=== PATIENT | male | born 1960 | race Two or more races ===

== ENCOUNTER 2016-07-19 06:52 | Day surgery (SDC) | payer BC, MEDICARE, OTHER ==
[2016-07-19 08:11] VITALS: BMI 33.5
[2016-07-19] MEDS ORDERED: LIDOCAINE HCL/PF 1% SDV 5ML VIAL ONE (08:36)
[2016-07-19] MEDS ORDERED: PROPOFOL 20 ML ONE ×5 (08:36→10:07)
[2016-07-19 09:27] LABS: MEAN CELL VOLUME 88.3 fl (80-96); MEAN PLT VOLUME 7.4 fl (7.5-11.1); PLATELET COUNT 69 K/MM3 (134-434); RDW 17.9 % (11.9-15.9)
[2016-07-19 09:39] LABS: INR 1.17 (0.82-1.09); PROTHROMBIN TIME (PATIENT) 12.9 SEC (9.98-11.88)
[2016-07-19] MEDS ORDERED: ceFAZolin SODIUM 1 GM VIAL ONE (10:03)
[2016-07-19 11:03] VITALS: TEMP 98
[2016-07-19 12:02] VITALS: BP 145/70; PULSE 55
== END 2016-07-19 11:45 | disposition home or self-care (01) ==
LOC: MERGE 06:52 → JASU-ENDO 06:52
PROVIDERS: ATTEND Internal Medicine Gastroenterology
PROC: 0DJ08ZZ Inspection of Upper Intestinal Tract, Via Natural or Artificial Opening Endoscopic (ICD-10-PCS; principal; 2016-07-19 08:30)
DX: I85.00 Esophageal varices without bleeding (principal); K76.6 Portal hypertension; I85.10 Secondary esophageal varices without bleeding; K31.89 Other diseases of stomach and duodenum; K26.9 Duodenal ulcer, unspecified as acute or chronic, without hemorrhage or perforation; K25.9 Gastric ulcer, unspecified as acute or chronic, without hemorrhage or perforation
CPT/HCPCS: 36415; 85027; 85610

== ENCOUNTER 2016-08-09 07:33 | Day surgery (SDC) | payer MEDICARE, OTHER ==
[2016-08-09] MEDS ORDERED: PROPOFOL 40 ML ONE (07:54)
[2016-08-09 09:32] VITALS: BMI 35.3
[2016-08-09] MEDS ORDERED: ceFAZolin SODIUM 1 GM VIAL ONE (09:58)
[2016-08-09 10:27] VITALS: TEMP 98.6
[2016-08-09 11:17] VITALS: BP 128/67; PULSE 50
== END 2016-08-09 11:29 | disposition home or self-care (01) ==
LOC: JASU-ENDO 07:33
PROVIDERS: ATTEND Internal Medicine Gastroenterology
PROC: 06L24CZ Occlusion of Gastric Vein with Extraluminal Device, Percutaneous Endoscopic Approach (ICD-10-PCS; 2016-08-09)
PROC: 06L34CZ Occlusion of Esophageal Vein with Extraluminal Device, Percutaneous Endoscopic Approach (ICD-10-PCS; principal; 2016-08-09 09:30)
DX: I85.00 Esophageal varices without bleeding (principal); K74.60 Unspecified cirrhosis of liver; K76.6 Portal hypertension; K31.89 Other diseases of stomach and duodenum; K22.10 Ulcer of esophagus without bleeding

== ENCOUNTER 2016-10-26 11:12 | Inpatient (IN) | payer MEDICARE, OTHER ==
[2016-10-26 11:20] VITALS: BMI 37.3
--- NOTE | 2016-10-26 11:43 | PDOC ---
History of Present Illness - General History Source: Patient, Family, Spouse Exam Limitations: No Limitations - History of Present Illness Initial Comments: 10/26/16 11:56 The patient is a 56 year-old man accompanied by his spouse, with a significant past medical history of anemia, liver cell carcinoma, hepatic encephalopathy ( patient is on a liver transplant list), hypertension, hypercholesterolemia, cerebrovascular accident, insulin-dependent diabetes mellitus, gastritis, esophageal varices who presents to the emergency department for altered mental status. As per patient's the patient is typically active and ambulatory with a cane. She noted last night, that the patient appeared weak, did not walk , felt sleepy, had a continuous dry cough and had a slurred speech. Patient this morning had the same symptoms, thus EMS was activated. Allergies: Iodinated Contrast Media (Oral and IV) Past Surgical History: Cholecystectomy. Cardiac stent placement. Left 4th digit amputation. Social History: Never smoked. No EtOH and recreational drug use. Primary Care Physician: Dr. Roxanne Duran [phone] Drywall Metal Stud Worker: Dr. Jennifer Carlson [phone] Director Oracle Database: DR. Jose De Jesus Villanueva [phone] Transplant Sewing Machinist: Dr. Whitley Rivera [address] [place] [address] [place], [place], [place] <Marquita Carver - Last Filed: 10/26/16 16:00> <Natacha Leon - Last Filed: 10/26/16 16:03> - General Chief Complaint: CVA/TIA Stated Complaint: CVA Time Seen by Provider: 10/26/16 11:24 Past History <Marquita Carver - Last Filed: 10/26/16 16:00> - Past Medical History Anemia: Yes Asthma: No Cancer: Yes (LIVER) Cardiac Disorders: Yes CVA: Yes COPD: No CHF: No Dementia: No Diabetes: Yes (IDDM) GI Disorders: Yes (ESOPHAGEAL VARICES,GASTRITIS) Disorders: No HTN: Yes (PORTAL) Hypercholesterolemia: Yes Liver Disease: Yes (LIVER CELL CARCINOMA;CIRRHOSIS OF LIVER) Seizures: No Thyroid Disease: No - Surgical History Abdominal Surgery: No Appendectomy: No Cardiac Surgery: Yes (CARDIAC STENTS) Cholecystectomy: Yes Lung Surgery: No Neurologic Surgery: No Orthopedic Surgery: No - Psycho/Social/Smoking Cessation Hx Anxiety: No Suicidal Ideation: No Smoking Status: No Smoking History: Never smoked Have you smoked in the past 12 months: No Number of Cigarettes Smoked Daily: 0 Hx Alcohol Use: No Drug/Substance Use Hx: No Substance Use Type: None Hx Substance Use Treatment: No <Natacha Leon - Last Filed: 10/26/16 16:03> - Past Medical History Allergies/Adverse Reactions: Allergies Allergy/AdvReac Type Severity Reaction Status Date / Time Iodinated Contrast Media - Allergy Verified 04/30/16 15:39 Oral and [Iodinated Contrast Media - IV Dye] Home Medications: Ambulatory Orders Aspirin [ASA -] 81 mg PO DAILY 07/15/16 Atorvastatin Ca [Lipitor] 10 mg PO HS 07/15/16 Furosemide [Lasix] 40 mg PO DAILY 07/15/16 Insulin Detemir [Levemir Flextouch] 40 unit SQ DAILY 07/15/16 Multivitamins [Multivit ([facility] Formulary)] 1 tab PO DAILY 07/15/16 Nadolol 20 mg PO DAILY 07/15/16 Nateglinide [Starlix (Nf) -] 60 mg PO BID 07/15/16 Ranolazine [Ranexa] 1,000 mg PO BID 07/15/16 Spironolactone 50 mg PO DAILY 07/15/16 Insulin Lispro [Humalog Kwikpen U-200] 12 unit SQ ASDIR 07/19/16 Metformin HCl 500 mg PO BID 08/09/16 Pantoprazole Sodium [Protonix] 40 mg PO DAILY 10/26/16 Rivaroxaban [Xarelto -] 10 mg PO DAILY 10/26/16 Review of Systems - Review of Systems Able to Perform ROS?: Yes Comments:: 10/26/16 11:56 GENERAL/CONSTITUTIONAL: No fever or chills. No weakness. HEAD, EYES, EARS, NOSE AND THROAT: No change in vision. No ear pain or discharge. No sore throat. CARDIOVASCULAR: No chest pain or shortness of breath. RESPIRATORY: Yes: Cough. No wheezing, or hemoptysis. GASTROINTESTINAL: No nausea, vomiting, diarrhea or constipation. GENITOURINARY: No dysuria, frequency, or change in urination. MUSCULOSKELETAL: No joint or muscle swelling or pain. No neck or back pain. SKIN: No rash NEUROLOGIC: Yes: Altered mental status. Change in strength/sensation. Slurred speech. No vertigo, loss of consciousness. ENDOCRINE: No increased thirst. No abnormal weight change. HEMATOLOGIC/LYMPHATIC: Yes: History of anemia. No easy bleeding, or history of blood clots. ALLERGIC/IMMUNOLOGIC: No hives or skin allergy. <Marquita Carver - Last Filed: 10/26/16 16:00> *Physical Exam - Vital Signs Last Vital Signs Temp Pulse Resp BP Pulse Ox 99.2 F 67 18 133/70 99 10/26/16 11:19 10/26/16 11:19 10/26/16 11:19 10/26/16 11:19 10/26/16 11:19 <Marquita Carver - Last Filed: 10/26/16 16:00> - Vital Signs Last Vital Signs Temp Pulse Resp BP Pulse Ox 99.2 F 67 18 133/70 99 10/26/16 11:19 10/26/16 11:19 10/26/16 11:19 10/26/16 11:19 10/26/16 11:19 - Physical Exam Comments: GENERAL: Awake, alert, and oriented to person and place, in no acute distress. Somewhat confused. HEAD: No signs of trauma EYES: PERRLA, EOMI, sclera anicteric, conjunctiva clear ENT: Auricles normal inspection, hearing grossly normal, nares patent, oropharynx clear without exudates. Dry mucosa NECK: Normal ROM, supple, no lymphadenopathy, JVD, or masses LUNGS: Breath sounds equal, clear to auscultation bilaterally. No wheezes, and no crackles HEART: Regular rate and rhythm, normal S1 and S2, no murmurs, rubs or gallops ABDOMEN: Soft, nontender, normoactive bowel sounds. No guarding, no rebound. No masses EXTREMITIES: Normal range of motion, no edema. No clubbing or cyanosis. No cords, erythema, or tenderness NEUROLOGICAL: Cranial nerves II through XII grossly intact. Slightly slurred speech. Gait not tested due to confusion. Motor and sensation intact. SKIN: Warm, Dry, normal turgor, no rashes or lesions noted. <Natacha Leon - Last Filed: 10/26/16 16:03> ED Treatment Course - LABORATORY CBC & Chemistry Diagram: 10/26/16 11:49 10/26/16 11:49 - RADIOLOGY Radiograph Interpretation: 10/26/16 13:01 EXAM: CT/HEAD CT WITHOUT CONTRAST Interpreted by Dr. Beto Houser IMPRESSION: Since 01/02/2015, there remains mild volume loss. The ventricles and basal cisterns appear unremarkable. Questionable minimal periventricular chronic microvascular ischemic changes. No mass lesion, gross acute infarct or intracranial hemorrhage is identified. There is no shift of the midline structures. Previously described left pontine old lacunar infarcts are not grossly appreciated on this exam. The calvarium is intact. Visualized paranasal sinuses are well aerated. Mild deviation of the nasal septum to the right with a prominent right sided bony spur is present. Calcification of the cavernous carotid arteries are present. The mastoid air cells are well aerated <Marquita Carver - Last Filed: 10/26/16 16:00> - LABORATORY CBC & Chemistry Diagram: 10/26/16 11:49 10/26/16 11:49 <Natacha Leon - Last Filed: 10/26/16 16:03> Medical Decision Making - Medical Decision Making 10/26/16 13:[address] Jg Flores. 10/26/16 13:[address] Jg Flores. Case was discussed. <Marquita Carver - Last Filed: 10/26/16 16:00> - Medical Decision Making Pt and family did not initially state that he had history of liver disease, so history was updated as this became apparent and ammonia level was added. Found to be elevated to 112. Pt given lactulose. Results discussed with family. Patient endorsed to Dr. Flores for admission. <Natacha Leon - Last Filed: 10/26/16 16:03> *DC/Admit/Observation/Transfer - Attestations Scribe Attestion: 10/26/16 11:56 Documentation prepared by Marquita Carver, acting as biomedical engineering technician for Natacha Leon MD. <Marquita Carver - Last Filed: 10/26/16 16:00> - Discharge Dispostion Admit: Yes <Natacha Leon - Last Filed: 10/26/16 16:03> Diagnosis at time of Disposition: Hepatic encephalopathy - Discharge Dispostion Condition at time of disposition: Guarded - Referrals
[2016-10-26 11:58] LABS: BASOPHIL 0.6 % (0-2.0); EOSINOPHIL 0.9 % (0-4.5); MCH 30.3 pg (25.7-33.7); MCHC 33.7 g/dl (32.0-35.9); MEAN CELL VOLUME 89.9 fl (80-96); NEUTROPHILS 73.4 % (42.8-82.8); PLATELET COUNT 76 K/MM3 (134-434); RDW 16.9 % (11.9-15.9); WHITE BLOOD COUNT 5.2 K/mm3 (4.0-10.0)
[2016-10-26 12:22] LABS: INR 1.45 (0.82-1.09); PROTHROMBIN TIME (PATIENT) 16.1 SEC (9.98-11.88)
[2016-10-26 12:23] LABS: BILIRUBIN,TOTAL 1.2 mg/dL (0.2-1.0); CALCIUM 9.4 mg/dL (8.5-10.1); COCKROFT - GAULT 103.31; CREATININE 1.3 mg/dL (0.7-1.3); TOT PROT 7.3 g/dl (6.4-8.2)
[2016-10-26 12:26] LABS: TROPONIN I 0.06 ng/ml (0.00-0.05)
[2016-10-26] MEDS ORDERED: INSULIN REGULAR HUMAN 100 UNITS/ML *VIAL SQ ONE (12:32)
[2016-10-26] MEDS ORDERED: SODIUM CHLORIDE 250 ML IV STA (12:53)
[2016-10-26] MEDS ORDERED: LACTULOSE 20 GM/30 ML UDC (FOR ORAL USE ONLY) PO ONE (13:28)
[2016-10-26] MEDS ORDERED: LACTULOSE 20 GM/30 ML UDC (FOR ORAL USE ONLY) ONE (13:33)
--- NOTE | 2016-10-26 15:22 | EKG ---
Test Reason : Blood Pressure : / mmHG Vent. Rate : 054 BPM Atrial Rate : 054 BPM P-R Int : 178 ms QRS Dur : 102 ms QT Int : 482 ms P-R-T Axes : 015 -34 -22 degrees QTc Int : 457 ms SINUS BRADYCARDIA LEFT AXIS DEVIATION MINIMAL VOLTAGE CRITERIA FOR LVH, MAY BE NORMAL VARIANT ABNORMAL ECG WHEN COMPARED WITH ECG OF 05-APR-2016 16:10, NO SIGNIFICANT CHANGE WAS FOUND Confirmed by REGGIE SÁNCHEZ, BRISA ([id number]) on 10/26/2016 3:21:55 PM Referred By: Confirmed By:BRISA PAREDES MD
[2016-10-26] MEDS ORDERED: LACTULOSE 20 GM/30 ML UDC (FOR ORAL USE ONLY) PO PRN (15:50)
[2016-10-26] MEDS: INSULIN SLIDING SCALE (NOVOLOG) 1 VIAL SQ SCH ×2 (16:50→22:53)
[2016-10-26 17:11] LABS: URINE APPEARANCE CLEAR; URINE BILIRUBIN NEGATIVE (NEGATIVE); URINE BLOOD NEGATIVE (NEGATIVE); URINE COLOR YELLOW; URINE GLUCOSE (UA) 3+ (NEGATIVE); URINE KETONE NEGATIVE (NEGATIVE); URINE LEUK ESTERASE NEGATIVE (NEGATIVE); URINE NITRITE NEGATIVE (NEGATIVE); URINE PROTEIN NEGATIVE (NEGATIVE); URINE UROBILINOGEN NEGATIVE E.U./dl (0.2-1.0)
--- NOTE | 2016-10-26 19:43 | PN ---
Progress Note (short form) - Note Progress Note: ID Consult dictated
[2016-10-26 21:03] LABS: BASOPHIL 0.3 % (0-2.0); EOSINOPHIL 1.1 % (0-4.5); MCH 29.7 pg (25.7-33.7); MCHC 32.6 g/dl (32.0-35.9); MEAN PLT VOLUME 8.2 fl (7.5-11.1); NEUTROPHILS 68.6 % (42.8-82.8); PLATELET COUNT 77 K/MM3 (134-434); RDW 17.1 % (11.9-15.9); WHITE BLOOD COUNT 5.2 K/mm3 (4.0-10.0)
[2016-10-26] MEDS ORDERED: INSULIN (NOVOLOG) ASPART 100 UNITS/ML 10ML VIAL ONE (22:49)
[2016-10-26] MEDS ORDERED: RANOLAZINE E.R. 500 MG TABLET (FP) ONE (22:49)
[2016-10-26] MEDS: ATORVASTATIN CA 10 MG TABLET (FP) PO SCH (22:54)
[2016-10-26] MEDS: RANOLAZINE E.R. 1,000 MG TABLET (FP) PO SCH (22:54)
[2016-10-26] MEDS: LACTULOSE 20 GM/30 ML UDC (FOR ORAL USE ONLY) PO PRN (22:56)
--- NOTE | 2016-10-27 00:07 | CONSULT ---
Consult Consult Specialty:: endocrine Referred by:: dr.annabi garcia Reason for Consultation:: diabetes mellitus - History of Present Illness Chief Complaint: high blood sugars History of Present Illness: 56 year-old man accompanied by his spouse, with a significant past medical history of anemia, liver cell carcinoma, hepatic encephalopathy (patient is on a liver transplant list), hypertension, hypercholesterolemia, cerebrovascular accident, insulin-dependent diabetes mellitus, gastritis, esophageal varices who presents to the emergency department for altered mental status. 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: Yes: Peripheral Neuropathy Cardio/Vascular: Yes: CAD, HTN, Hyperlipdemia Gastrointestinal: Yes: Esophageal Varices, GI Bleed, Gastritis, Hemorrhoids, Ascites, Other Hepatobiliary: Yes: Cirrhosis (h/o esophageal varices s/p banding, related to HERNANDEZ), Cholelithiasis (s/p lap choly), Other (PORTAL VEIN PARTIAL THROMBOSIS, HCC treated with transhepatic heat ablations at [facility]) Renal/: Yes: Renal Inusuff Endocrine: Yes: Diabetes Mellitus - Past Surgical History Past Surgical History: Yes: Hernia Repair, Colonoscopy, Upper Endoscopy, Amputation, Cholecystectomy - Alcohol/Substance Use Hx Alcohol Use: No History of Substance Use: reports: None - Smoking History Smoking history: Never smoked Have you smoked in the past 12 months: No Aproximately how many cigarettes per day: 0 - Social History Usual Living Arrangement: With Spouse ADL: Independent 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 [employer] History of Recent Travel: No Home Medications - Allergies Allergies/Adverse Reactions: Allergies Allergy/AdvReac Type Severity Reaction Status Date / Time Iodinated Contrast Media - Allergy Verified 04/30/16 15:39 Oral and [Iodinated Contrast Media - IV Dye] - Home Medications Home Medications: Ambulatory Orders Aspirin [ASA -] 81 mg PO DAILY 07/15/16 Atorvastatin Ca [Lipitor] 10 mg PO HS 07/15/16 Furosemide [Lasix] 40 mg PO DAILY 07/15/16 Insulin Detemir [Levemir Flextouch] 40 unit SQ DAILY 07/15/16 Multivitamins [Multivit ([facility] Formulary)] 1 tab PO DAILY 07/15/16 Nadolol 20 mg PO DAILY 07/15/16 Nateglinide [Starlix (Nf) -] 60 mg PO BID 07/15/16 Ranolazine [Ranexa] 1,000 mg PO BID 07/15/16 Spironolactone 50 mg PO DAILY 07/15/16 Insulin Lispro [Humalog Kwikpen U-200] 12 unit SQ ASDIR 07/19/16 Metformin HCl 500 mg PO BID 08/09/16 Pantoprazole Sodium [Protonix] 40 mg PO DAILY 10/26/16 Rivaroxaban [Xarelto -] 10 mg PO DAILY 10/26/16 Family Disease History - Family Disease History Family Disease History: Diabetes: Brother (alcoholic cirrhosis), Sister, CA: Mother (breast Ca), Other: Father ( from alcohol related complications) Review of Systems - Review of Systems Constitutional: reports: Lethargy, Weakness Eyes: reports: No Symptoms HENT: reports: No Symptoms Neck: reports: No Symptoms Cardiovascular: reports: Shortness of Breath Respiratory: reports: Exercise Intolerance, SOB, SOB on Exertion Gastrointestinal: reports: Bloating, Constipation, Nausea Genitourinary: reports: No Symptoms Breasts: reports: No Symptoms Reported Musculoskeletal: reports: Muscle Pain, Muscle Cramps, Muscle Weakness Integumentary: reports: No Symptoms Neurological: reports: Numbness, Unsteady Gait, Weakness Endocrine: reports: Unexplained Weight Gain Hematology/Lymphatic: reports: No Symptoms Physical Exam Vital Signs: Vital Signs Temperature 97.9 F 10/26/16 22:00 Pulse Rate 54 L 10/26/16 22:00 Respiratory Rate 18 10/26/16 22:00 Blood Pressure 125/62 10/26/16 22:00 O2 Sat by Pulse Oximetry (%) 99 10/26/16 22:00 Constitutional: Yes: Anxious Eyes: Yes: EOM Intact HENT: Yes: Normocephalic Neck: Yes: Trachea Midline Cardiovascular: Yes: Regular Rate and Rhythm Respiratory: Yes: CTA Bilaterally Gastrointestinal: Yes: Normal Bowel Sounds, Abdomen, Obese, Ascites, Hepatomegaly ...Rectal Exam: Yes: Deferred Renal/: Yes: WNL Breast(s): Yes: WNL Edema: No Integumentary: Yes: WNL Neurological: Yes: Alert, Oriented Labs: CBC, BMP 10/26/16 20:55 Problem List - Problems (1) Hepatic encephalopathy Code(s): K72.90 - HEPATIC FAILURE, UNSPECIFIED WITHOUT COMA (2) Abdominal distension Code(s): R14.0 - ABDOMINAL DISTENSION (GASEOUS) (3) Ascites Code(s): R18.8 - OTHER ASCITES Qualifiers: Ascites type: other type Qualified Code(s): R18.8 - Other ascites (4) CVA (cerebral infarction) Code(s): I63.9 - CEREBRAL INFARCTION, UNSPECIFIED (5) Type 2 diabetes mellitus with diabetic neuropathy, unspecified Code(s): E11.40 - TYPE 2 DIABETES MELLITUS WITH DIABETIC NEUROPATHY, UNSP Assessment/Plan Current Active Problems Hepatic encephalopathy (Acute) hepatic carcinoma hypertension ashd tia /cva diabetes mellitus uncontrolled hyperglycemia hyperlipidemia unstable angina vs mi Abnormal Lab Results 10/26/16 10/26/16 10/26/16 11:49 11:49 11:49 RBC 3.18 L Hgb 9.6 L D Hct 28.6 L RDW 16.9 H Plt Count 76 L INR 1.45 H Random Glucose 314 H* Lactic Acid Total Bilirubin 1.2 H Ammonia Troponin I 0.06 H D Albumin 3.0 L Urine Glucose (UA) 10/26/16 10/26/16 10/26/16 11:49 12:37 16:30 RBC Hgb Hct RDW Plt Count INR Random Glucose Lactic Acid 2.7 H* Total Bilirubin Ammonia 114.92 H Troponin I Albumin Urine Glucose (UA) 3+ H 10/26/16 10/26/16 20:55 21:30 RBC 3.00 L Hgb 8.9 L Hct 27.3 L RDW 17.1 H Plt Count 77 L INR Random Glucose Lactic Acid Total Bilirubin Ammonia Troponin I 0.06 H Albumin Urine Glucose (UA) Laboratory Results - last 24 hr 10/26/16 10/26/16 10/26/16 11:49 11:49 11:49 WBC 5.2 RBC 3.18 L Hgb 9.6 L D Hct 28.6 L MCV 89.9 MCHC 33.7 RDW 16.9 H Plt Count 76 L MPV 8.0 Neutrophils % 73.4 Lymphocytes % 16.2 Monocytes % 8.9 Eosinophils % 0.9 Basophils % 0.6 INR 1.45 H Sodium 136 Potassium 4.7 Chloride 102 Carbon Dioxide 25 Anion Gap 9 BUN 16 Creatinine 1.3 Creat Clearance w eGFR 56.70 POC Glucometer Random Glucose 314 H* Lactic Acid Calcium 9.4 Total Bilirubin 1.2 H AST 28 D ALT 32 D Alkaline Phosphatase 114 Ammonia Creatine Kinase 91 Troponin I 0.06 H D Total Protein 7.3 Albumin 3.0 L Urine Color Urine Appearance Urine pH Ur Specific [place] Urine Protein Urine Glucose (UA) Urine Ketones Urine Blood Urine Nitrite Urine Bilirubin Urine Urobilinogen Ur Leukocyte Esterase 10/26/16 10/26/16 10/26/16 11:49 12:37 16:11 WBC RBC Hgb Hct MCV MCHC RDW Plt Count MPV Neutrophils % Lymphocytes % Monocytes % Eosinophils % Basophils % INR Sodium Potassium Chloride Carbon Dioxide Anion Gap BUN Creatinine Creat Clearance w eGFR POC Glucometer [phone] Random Glucose Lactic Acid 2.7 H* Calcium Total Bilirubin AST ALT Alkaline Phosphatase Ammonia 114.92 H Creatine Kinase Troponin I Total Protein Albumin Urine Color Urine Appearance Urine pH Ur Specific [place] Urine Protein Urine Glucose (UA) Urine Ketones Urine Blood Urine Nitrite Urine Bilirubin Urine Urobilinogen Ur Leukocyte Esterase 10/26/16 10/26/16 10/26/16 16:15 16:30 20:55 WBC 5.2 RBC 3.00 L Hgb 8.9 L Hct 27.3 L MCV 91.0 MCHC 32.6 RDW 17.1 H Plt Count 77 L MPV 8.2 Neutrophils % 68.6 Lymphocytes % 20.4 D Monocytes % 9.6 Eosinophils % 1.1 Basophils % 0.3 INR Sodium Potassium Chloride Carbon Dioxide Anion Gap BUN Creatinine Creat Clearance w eGFR POC Glucometer Random Glucose Lactic Acid 1.6 Calcium Total Bilirubin AST ALT Alkaline Phosphatase Ammonia Creatine Kinase Troponin I Total Protein Albumin Urine Color Yellow Urine Appearance Clear Urine pH 6.0 Ur Specific [place] 1.010 Urine Protein Negative Urine Glucose (UA) 3+ H Urine Ketones Negative Urine Blood Negative Urine Nitrite Negative Urine Bilirubin Negative Urine Urobilinogen Negative Ur Leukocyte Esterase Negative 10/26/16 10/26/16 21:30 22:52 WBC RBC Hgb Hct MCV MCHC RDW Plt Count MPV Neutrophils % Lymphocytes % Monocytes % Eosinophils % Basophils % INR Sodium Potassium Chloride Carbon Dioxide Anion Gap BUN Creatinine Creat Clearance w eGFR POC Glucometer 335 Random Glucose Lactic Acid Calcium Total Bilirubin AST ALT Alkaline Phosphatase Ammonia Creatine Kinase Troponin I 0.06 H Total Protein Albumin Urine Color Urine Appearance Urine pH Ur Specific [place] Urine Protein Urine Glucose (UA) Urine Ketones Urine Blood Urine Nitrite Urine Bilirubin Urine Urobilinogen Ur Leukocyte Esterase plan: cardiac telemetry cardiology consult bgm novolog sliding scale levemir 40 units am levemir 15 units hs ck hba1c cpk troponin serial enzymes Current Medications Generic Name Dose Route Start Last Admin Trade Name Freq PRN Reason Stop Dose Admin Aspirin 81 mg 10/27/16 10:00 Asa - PO DAILY [facility] Atorvastatin Calcium 10 mg 10/26/16 22:00 10/26/16 22:54 Lipitor - PO 10 mg HS J CARLOS Administration Furosemide 40 mg 10/27/16 10:00 Lasix - PO DAILY [facility] Insulin Aspart 1 vial 10/26/16 16:30 10/26/16 22:53 Novolog Vial Sliding Scale - SQ 7 unit ACHS J CARLOS Administration Protocol Insulin Detemir 40 units 10/27/16 10:00 Levemir Vial SQ DAILY [facility] Insulin Detemir 15 units 10/27/16 22:00 Levemir Vial SQ HS [facility] Lactulose 20 gm 10/26/16 20:04 10/26/16 22:56 Cephulac (Oral Use) PO 20 gm Q12H PRN Administration CONSTIPATION Nadolol 20 mg 10/27/16 10:00 Corgard - PO DAILY [facility] Pantoprazole Sodium 40 mg 10/27/16 10:00 Protonix - PO DAILY [facility] Ranolazine 1,000 mg 10/26/16 22:00 10/26/16 22:54 Ranexa - PO 1,000 mg BID J CARLOS Administration Rivaroxaban 10 mg 10/27/16 10:00 Xarelto - PO DAILY [facility] Spironolactone 50 mg 10/27/16 10:00 Aldactone - PO DAILY [facility]
--- NOTE | 2016-10-27 00:34 | CONS ---
DATE OF CONSULTATION: DATE OF DICTATION: 10/26/2016 INFECTIOUS DISEASE CONSULTATION HISTORY OF PRESENT ILLNESS: A 56-year-old male with history of chronic liver disease, being evaluated for possible sepsis. He was admitted to the hospital with altered mental status. He was found to have a serum ammonia level of over 100. He was treated with lactulose with improvement in his mental status. At the present time he is awake and alert. He offers no complaints. He denies any recent febrile illness. No complaints of chest pain, shortness of breath, cough, sputum production. No abdominal pain, vomiting, diarrhea, dysuria, or hematuria. PAST MEDICAL HISTORY: Positive for chronic liver disease, history of hepatocellular carcinoma, chronic anemia, stroke, insulin dependent diabetes mellitus, hypertension, hyperlipidemia. PAST SURGICAL HISTORY: Status post cholecystectomy and coronary artery stent. ALLERGIES: IODINE. MEDICATION: Aspirin, Protonix, lactulose, Xarelto, Coreg, Lipitor, Levemir, Lasix, Aldactone. SOCIAL HISTORY: Negative for tobacco or active alcohol use. LABORATORY DATA: White count 5.2, hematocrit 28.6, platelets 76. Urinalysis negative. BUN 16, creatinine 1.3, ammonia level 114. Chest x-ray negative. PHYSICAL EXAMINATION: General: He is awake and responsive, offers no complaints. Vital signs: Temperature 99.2, blood pressure 123/66, pulse 50 regular, respirations 18 per minute. HEENT: Sclerae anicteric. Neck: Supple. Cardiovascular: Heart sounds S1, S2. Respiratory: Lungs clear. Abdomen: Obese. Soft. Nontender. Extremities: Negative for edema. IMPRESSION: 1. Hepatic encephalopathy. 2. Low-grade fever. 3. Chronic liver disease. Obtain cultures. Observe off antibiotic therapy. No clear focus for infection precipitating hepatic encephalopathy. Will follow. Thank you for the kind referral. VALERI HILL M.D. [id number]
[2016-10-27] MEDS: INSULIN SLIDING SCALE (NOVOLOG) 1 VIAL SQ SCH ×4 (06:49→21:16)
[2016-10-27] MEDS ORDERED: RANOLAZINE E.R. 500 MG TABLET (FP) ONE ×2 (07:46→20:48)
[2016-10-27] MEDS: INSULIN DETEMIR 100 UNITS/ML MDV SQ SCH ×2 (07:49→21:15)
[2016-10-27 07:50] LABS: BASOPHIL 0.9 % (0-2.0); EOSINOPHIL 1.8 % (0-4.5); MCH 30.4 pg (25.7-33.7); MCHC 33.9 g/dl (32.0-35.9); MEAN CELL VOLUME 89.6 fl (80-96); MEAN PLT VOLUME 8.2 fl (7.5-11.1); NEUTROPHILS 61.7 % (42.8-82.8); PLATELET COUNT 66 K/MM3 (134-434); RDW 16.9 % (11.9-15.9); WHITE BLOOD COUNT 3.8 K/mm3 (4.0-10.0)
[2016-10-27 08:23] LABS: INR 1.28 (0.82-1.09); PROTHROMBIN TIME (PATIENT) 14.1 SEC (9.98-11.88)
[2016-10-27 08:30] LABS: ALBUMIN 2.6 g/dl (3.4-5.0); ALK PHOS 96 U/L (45-117); ANION GAP 7 (8-16); BILIRUBIN,TOTAL 0.9 mg/dL (0.2-1.0); CALCIUM 8.8 mg/dL (8.5-10.1); CO2 26 mmol/L (21-32); CREATININE 1.1 mg/dL (0.7-1.3); GLUCOSE,RANDOM 223 mg/dL (74-106); MAGNESIUM 1.7 mg/dL (1.8-2.4); SGOT/AST 33 U/L (15-37); SGPT/ALT 28 U/L (12-78); TOT PROT 6.2 g/dl (6.4-8.2)
[2016-10-27] MEDS: ASPIRIN 81 MG CHEWABLE TABLETS PO SCH (09:32)
[2016-10-27] MEDS: LACTULOSE 20 GM/30 ML UDC (FOR ORAL USE ONLY) PO PRN (09:33)
[2016-10-27] MEDS: FUROSEMIDE 40 MG TABLET (FP) PO SCH (09:33)
[2016-10-27] MEDS: SPIRONOLACTONE 25 MG TABLET (FP) PO SCH (09:33)
[2016-10-27] MEDS: RANOLAZINE E.R. 1,000 MG TABLET (FP) PO SCH ×2 (09:33→21:17)
[2016-10-27] MEDS: PANTOPRAZOLE 40 MG TABLET (FP) PO SCH (09:33)
[2016-10-27] MEDS ORDERED: PT OWN MED DRAWER 7, Y5N ONE (09:34)
[2016-10-27] MEDS ORDERED: INSULIN DETEMIR 100 UNITS/ML MDV SQ SCH (10:00)
[2016-10-27] MEDS: NADOLOL 20 MG TABLET (FP) PO SCH (12:37)
[2016-10-27] MEDS: RIVAROXABAN 10 MG TABLET PO SCH (12:37)
--- NOTE | 2016-10-27 12:44 | CON.GI ---
Consult Consult Specialty:: GASTROENTEROLOGY Reason for Consultation:: ENCEPHALOPATHY - History of Present Illness Chief Complaint: ALERTED MENTAL STATUS History of Present Illness: 56 YEAR OLD MALE WITH CIRRHOSIS(PHTN.GRADE III ESOPHAGEAL VARICES) FROM FATTY LIVER AND NOW WITH PVT AND HCC TREATED AT [facility] (SEE PRIOR CONSULT NOTES) NOW WITH ONE DAY OF LOW GRADE TEMP AND YESTERDAY WITH LETHARGY AND CONFUSION. PATIENT GIVEN LACTULOSE AND SEPSIS WORKUP IS ONGOING. PATIENT ALSO NOTED TO HAVE MILD TROPONIN ELEVATERD. HE DENIES RECTAL BLEEDING AND MELENA. HE IS ALERT AND AWAKE TODAY. JAYSON HAS ALWAYS BEEN A POOR HISTORIAN AND STATES HE HAD SOME STENTING PROCEDURE LAST WEEK IN HIS LEFT LEG AND ALSO A AMPUTATION OF HIS TOE ON THE SMAE SIDE. 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 Cardio/Vascular: Yes: CAD, HTN, Hyperlipdemia Gastrointestinal: Yes: Esophageal Varices, GI Bleed, Gastritis, Hemorrhoids, Ascites, Other Hepatobiliary: Yes: Cirrhosis (h/o esophageal varices s/p banding, related to HERNANDEZ), Cholelithiasis (s/p lap choly), Other (PORTAL VEIN PARTIAL THROMBOSIS, HCC treated with transhepatic heat ablations at [facility]) Renal/: Yes: Renal Inusuff Endocrine: Yes: Diabetes Mellitus - Past Surgical History Past Surgical History: Yes: Hernia Repair, Colonoscopy, Upper Endoscopy, Amputation, Cholecystectomy - Alcohol/Substance Use Hx Alcohol Use: No History of Substance Use: reports: None - Smoking History Smoking history: Never smoked Have you smoked in the past 12 months: No Aproximately how many cigarettes per day: 0 - Social History Usual Living Arrangement: With Spouse ADL: Independent 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 [employer] History of Recent Travel: No Home Medications - Allergies Allergies/Adverse Reactions: Allergies Allergy/AdvReac Type Severity Reaction Status Date / Time Iodinated Contrast Media - Allergy Verified 04/30/16 15:39 Oral and [Iodinated Contrast Media - IV Dye] - Home Medications Home Medications: Ambulatory Orders Aspirin [ASA -] 81 mg PO DAILY 07/15/16 Atorvastatin Ca [Lipitor] 10 mg PO HS 07/15/16 Furosemide [Lasix] 40 mg PO DAILY 07/15/16 Insulin Detemir [Levemir Flextouch] 40 unit SQ DAILY 07/15/16 Multivitamins [Multivit ([facility] Formulary)] 1 tab PO DAILY 07/15/16 Nadolol 20 mg PO DAILY 07/15/16 Nateglinide [Starlix (Nf) -] 60 mg PO BID 07/15/16 Ranolazine [Ranexa] 1,000 mg PO BID 07/15/16 Spironolactone 50 mg PO DAILY 07/15/16 Insulin Lispro [Humalog Kwikpen U-200] 12 unit SQ ASDIR 07/19/16 Metformin HCl 500 mg PO BID 08/09/16 Pantoprazole Sodium [Protonix] 40 mg PO DAILY 10/26/16 Rivaroxaban [Xarelto -] 10 mg PO DAILY 10/26/16 Family Disease History - Family Disease History Family Disease History: Diabetes: Brother (alcoholic cirrhosis), Sister, CA: Mother (breast Ca), Other: Father ( from alcohol related complications) Review of Systems - Review of Systems Constitutional: reports: Lethargy, Other (CHANGE IN MENTAL STATUS) HENT: reports: No Symptoms Neck: reports: No Symptoms Cardiovascular: reports: No Symptoms Respiratory: reports: No Symptoms Gastrointestinal: reports: No Symptoms Genitourinary: reports: No Symptoms Breasts: reports: No Symptoms Reported Musculoskeletal: reports: No Symptoms Integumentary: reports: No Symptoms Neurological: reports: No Symptoms Endocrine: reports: No Symptoms Hematology/Lymphatic: reports: No Symptoms Psychiatric: reports: No Symptoms Physical Exam-GI Vital Signs: Vital Signs Temperature 97.9 F 10/27/16 07:00 Pulse Rate 52 L 10/27/16 09:00 Respiratory Rate 18 10/27/16 09:00 Blood Pressure 114/60 10/27/16 09:00 O2 Sat by Pulse Oximetry (%) 99 10/27/16 09:00 Constitutional: Yes: No Distress, Calm, Obese Eyes: Yes: Conjunctiva Clear HENT: Yes: Normocephalic Neck: Yes: Supple Cardiovascular: Yes: Regular Rate and Rhythm Respiratory: Yes: Regular Gastrointestinal Inspection: Yes: WNL ...Auscultate: Yes: Normoactive Bowel Sounds ...Palpate: Yes: Soft Musculoskeletal: Yes: WNL Extremities: Yes: Amputation Neurological: Yes: Alert, Oriented Labs: CBC, BMP 10/27/16 06:35 10/27/16 06:35 INR, PTT INR 1.28 (0.82-1.09) H 10/27/16 06:35 Laboratory Tests 10/26/16 10/27/16 10/27/16 16:30 06:20 06:35 WBC 3.8 L RBC 2.77 L Hgb 8.4 L Hct 24.8 L MCV 89.6 MCHC 33.9 RDW 16.9 H Plt Count 66 L MPV 8.2 Neutrophils % 61.7 Lymphocytes % 25.0 D Monocytes % 10.6 H Eosinophils % 1.8 Basophils % 0.9 INR Sodium Potassium Chloride Carbon Dioxide Anion Gap BUN Creatinine Creat Clearance w eGFR Random Glucose Calcium Magnesium Total Bilirubin AST ALT Alkaline Phosphatase Ammonia Troponin I 0.06 H Total Protein Albumin Urine Color Yellow Urine Appearance Clear Urine pH 6.0 Ur Specific [place] 1.010 Urine Protein Negative Urine Glucose (UA) 3+ H Urine Ketones Negative Urine Blood Negative Urine Nitrite Negative Urine Bilirubin Negative Urine Urobilinogen Negative Ur Leukocyte Esterase Negative 10/27/16 10/27/16 10/27/16 06:35 06:35 06:35 WBC RBC Hgb Hct MCV MCHC RDW Plt Count MPV Neutrophils % Lymphocytes % Monocytes % Eosinophils % Basophils % INR 1.28 H Sodium 139 Potassium 4.2 Chloride 106 Carbon Dioxide 26 Anion Gap 7 L BUN 14 Creatinine 1.1 Creat Clearance w eGFR > 60 Random Glucose 223 H D Calcium 8.8 Magnesium 1.7 L Total Bilirubin 0.9 D AST 33 ALT 28 Alkaline Phosphatase 96 Ammonia 73.2 H Troponin I Total Protein 6.2 L Albumin 2.6 L Urine Color Urine Appearance Urine pH Ur Specific [place] Urine Protein Urine Glucose (UA) Urine Ketones Urine Blood Urine Nitrite Urine Bilirubin Urine Urobilinogen Ur Leukocyte Esterase Problem List - Problems (1) Hepatic encephalopathy Assessment/Plan: THE ENCEPHALOPATHY PROBABLY RELATED TO SOMETHING OTHER THAN INTRINSIC WORSENING LIVER DISEASE. AGREE WITH SEPSIS WORKUP. HE HAD INVASIVE PROCEDURE ONE OR TWO WEEKS AGO AND AN AMPUTATION FOR AN INFECTED TOE. DETAILS NOT CERTAIN WOULD CONTINUE LACTULOSE ONCE OR TWICE A DAY SEND STOOL OB NEEDS PPi HE HAS VERY SERIOUS AND ADVANCE HCC WITH PVT, HE SHOULD STAY ON HIS XARELTO I HAVE CONTRACT DR PAZ ([facility]) ABOUT HIS ADMISSION EVALUATION OF TROPONINS??? Code(s): K72.90 - HEPATIC FAILURE, UNSPECIFIED WITHOUT COMA (2) Type 2 diabetes mellitus with diabetic neuropathy, unspecified Code(s): E11.40 - TYPE 2 DIABETES MELLITUS WITH DIABETIC NEUROPATHY, UNSP (3) Hepatocellular carcinoma Code(s): C22.0 - LIVER CELL CARCINOMA (4) Nonalcoholic steatohepatitis (HERNANDEZ) Code(s): K75.81 - NONALCOHOLIC STEATOHEPATITIS (HERNANDEZ) (5) Portal hypertension with esophageal varices Code(s): K76.6 - PORTAL HYPERTENSION I85.00 - ESOPHAGEAL VARICES WITHOUT BLEEDING (6) Portal vein thrombosis Code(s): I81 - PORTAL VEIN THROMBOSIS (7) Thrombocytopenia Code(s): D69.6 - THROMBOCYTOPENIA, UNSPECIFIED (8) Anemia Code(s): D64.9 - ANEMIA, UNSPECIFIED (9) CAD (coronary artery disease) Code(s): I25.10 - ATHSCL HEART DISEASE OF [place] CORONARY ARTERY W/O ANG PCTRS (10) Peripheral vascular disease Code(s): I73.9 - PERIPHERAL VASCULAR DISEASE, UNSPECIFIED (11) Elevated troponin I level Code(s): R74.8 - ABNORMAL LEVELS OF OTHER SERUM ENZYMES (12) Fever Code(s): R50.9 - FEVER, UNSPECIFIED
--- NOTE | 2016-10-27 13:05 | EKG ---
Test Reason : Blood Pressure : / mmHG Vent. Rate : 045 BPM Atrial Rate : 045 BPM P-R Int : 182 ms QRS Dur : 110 ms QT Int : 510 ms P-R-T Axes : 013 -29 -22 degrees QTc Int : 441 ms SINUS BRADYCARDIA MINIMAL VOLTAGE CRITERIA FOR LVH, MAY BE NORMAL VARIANT BORDERLINE ECG WHEN COMPARED WITH ECG OF 26-OCT-2016 11:30, CRITERIA FOR SEPTAL INFARCT ARE NO LONGER PRESENT Confirmed by JOSE ALFREDO SÁNCHEZ, KRISTINA ([id number]) on 10/27/2016 1:05:16 PM Referred By: Rimma ROSALES Confirmed By:KRISTINA VELIZ MD
--- NOTE | 2016-10-27 15:44 | CON.CARD ---
Consult Consult Specialty:: Cardiology Referred by:: Dr Flores Reason for Consultation:: elevated troponin - History of Present Illness Chief Complaint: confusion History of Present Illness: 56M anemia, cirrhosis, HCC, hepatic encephalopathy (patient is on a liver transplant list), hypertension,portal vein thrombosis on Xarelto, hypercholesterolemia, cerebrovascular accident, insulin-dependent diabetes mellitus, gastritis, esophageal varices who presents to the emergency department for altered mental status. Treated for hepatic encephalopahy with improvement. Noted with minimally elevated troponin. No symptoms of chest pain , sob, palpitations, orthopnea, pnd or edema. Does have a history of CAD and remote stent placement. 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 Cardio/Vascular: Yes: CAD, HTN, Hyperlipdemia Gastrointestinal: Yes: Esophageal Varices, GI Bleed, Gastritis, Hemorrhoids, Ascites, Other Hepatobiliary: Yes: Cirrhosis (h/o esophageal varices s/p banding, related to HERNANDEZ), Cholelithiasis (s/p lap choly), Other (PORTAL VEIN PARTIAL THROMBOSIS, HCC treated with transhepatic heat ablations at [facility]) Renal/: Yes: Renal Inusuff Endocrine: Yes: Diabetes Mellitus - Past Surgical History Past Surgical History: Yes: Hernia Repair, Colonoscopy, Upper Endoscopy, Amputation, Cholecystectomy - Alcohol/Substance Use Hx Alcohol Use: No History of Substance Use: reports: None - Smoking History Smoking history: Never smoked Have you smoked in the past 12 months: No Aproximately how many cigarettes per day: 0 - Social History Usual Living Arrangement: With Spouse ADL: Independent 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 [employer] History of Recent Travel: No Home Medications - Allergies Allergies/Adverse Reactions: Allergies Allergy/AdvReac Type Severity Reaction Status Date / Time Iodinated Contrast Media - Allergy Verified 04/30/16 15:39 Oral and [Iodinated Contrast Media - IV Dye] - Home Medications Home Medications: Ambulatory Orders Aspirin [ASA -] 81 mg PO DAILY 07/15/16 Atorvastatin Ca [Lipitor] 10 mg PO HS 07/15/16 Furosemide [Lasix] 40 mg PO DAILY 07/15/16 Insulin Detemir [Levemir Flextouch] 40 unit SQ DAILY 07/15/16 Multivitamins [Multivit ([facility] Formulary)] 1 tab PO DAILY 07/15/16 Nadolol 20 mg PO DAILY 07/15/16 Nateglinide [Starlix (Nf) -] 60 mg PO BID 07/15/16 Ranolazine [Ranexa] 1,000 mg PO BID 07/15/16 Spironolactone 50 mg PO DAILY 07/15/16 Insulin Lispro [Humalog Kwikpen U-200] 12 unit SQ ASDIR 07/19/16 Metformin HCl 500 mg PO BID 08/09/16 Pantoprazole Sodium [Protonix] 40 mg PO DAILY 10/26/16 Rivaroxaban [Xarelto -] 10 mg PO DAILY 10/26/16 Family Disease History - Family Disease History Family Disease History: Diabetes: Brother (alcoholic cirrhosis), Sister, CA: Mother (breast Ca), Other: Father ( from alcohol related complications) Review of Systems - Review of Systems Constitutional: reports: Lethargy, Loss of Appetite, Weakness Vital Signs: Vital Signs Temperature 97.7 F 10/27/16 13:40 Pulse Rate 52 L 10/27/16 13:40 Respiratory Rate 18 10/27/16 13:40 Blood Pressure 120/64 10/27/16 13:40 O2 Sat by Pulse Oximetry (%) 99 10/27/16 09:00 Constitutional: Yes: No Distress, Calm Eyes: Yes: Conjunctiva Clear HENT: Yes: Atraumatic, Normocephalic Neck: Yes: Supple, Trachea Midline Respiratory: Yes: Regular, CTA Bilaterally Gastrointestinal: Yes: Normal Bowel Sounds, Abdomen, Obese, Distention, Hepatomegaly, Splenomegaly Cardiovascular: Yes: Regular Rate and Rhythm, Bradycardia JVD: No Carotid Bruit: No PMI: Non-Displaced Heart Sounds: Yes: S1, S2 Edema: No Peripheral Pulses WNL: Yes - Other Data Labs, Other Data: CBC, BMP 10/27/16 06:35 10/27/16 06:35 INR, PTT INR 1.28 (0.82-1.09) H 10/27/16 06:35 Troponin, BNP 10/26/16 10/27/16 21:30 06:20 Troponin I 0.06 H 0.06 H Troponin, BNP 10/26/16 10/27/16 21:30 06:20 Troponin I 0.06 H 0.06 H Imaging - Results EKG: Report Reviewed (nsr lad lvh by voltage.) Problem List - Problems (1) Elevated troponin I level Assessment/Plan: He has no symptoms, no ecg changes and a minimally elevated troponin level which follows a nonischemic pattern. Low risk for true ACS. No need for telemetry. Echo ordered. Conservative cardiac care for now. Will follow with you. Continue rivaroxiban for portal vein thrombosis. Code(s): R74.8 - ABNORMAL LEVELS OF OTHER SERUM ENZYMES
--- NOTE | 2016-10-27 19:02 | HP ---
Admitting History and Physical - Primary Care Physician PCP: Jg Flores - Admission Chief Complaint: ALTERED MENTAL STATUS History of Present Illness: The patient is a 56 year-old man accompanied by his spouse, with a significant past medical history of anemia, liver cell carcinoma, hepatic encephalopathy ( patient is on a liver transplant list), hypertension, hypercholesterolemia, cva , insulin-dependent diabetes mellitus, gastritis, esophageal varices and PVD who presented to the ER for altered mental status. Pt states he had left 4th toe amputation done at [facility] by Dr Shane-Vascular Surgery and stent was placed in the LLE to increase perfusion. His follow up with him 1 week ago was insignificant. But 1 day ago he stared with cough and weakness, his noticed slurred speech. 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 Cardiovascular: Yes: CAD, HTN, Hyperlipdemia Gastrointestinal: Yes: Esophageal Varices, GI Bleed, Gastritis, Hemorrhoids, Ascites, Other Hepatobiliary: Yes: Cirrhosis (h/o esophageal varices s/p banding, related to HERNANDEZ), Cholelithiasis (s/p lap choly), Other (PORTAL VEIN PARTIAL THROMBOSIS, HCC treated with transhepatic heat ablations at [facility]) Renal/: Yes: Renal Inusuff Heme/Onc: Yes: Anemia, Thrombocytopenia Endocrine: Yes: Diabetes Mellitus - Past Surgical History Past Surgical History: Yes: Hernia Repair, Colonoscopy, Upper Endoscopy, Amputation, Cholecystectomy - Smoking History Smoking history: Never smoked Have you smoked in the past 12 months: No Aproximately how many cigarettes per day: 0 - Alcohol/Substance Use Hx Alcohol Use: No History of Substance Use: reports: None - Social History ADL: Independent 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 [employer] History of Recent Travel: No Home Medications - Allergies Allergies/Adverse Reactions: Allergies Allergy/AdvReac Type Severity Reaction Status Date / Time Iodinated Contrast Media - Allergy Verified 04/30/16 15:39 Oral and [Iodinated Contrast Media - IV Dye] - Home Medications Home Medications: Ambulatory Orders Aspirin [ASA -] 81 mg PO DAILY 07/15/16 Atorvastatin Ca [Lipitor] 10 mg PO HS 07/15/16 Furosemide [Lasix] 40 mg PO DAILY 07/15/16 Insulin Detemir [Levemir Flextouch] 40 unit SQ DAILY 07/15/16 Multivitamins [Multivit ([facility] Formulary)] 1 tab PO DAILY 07/15/16 Nadolol 20 mg PO DAILY 07/15/16 Nateglinide [Starlix (Nf) -] 60 mg PO BID 07/15/16 Ranolazine [Ranexa] 1,000 mg PO BID 07/15/16 Spironolactone 50 mg PO DAILY 07/15/16 Insulin Lispro [Humalog Kwikpen U-200] 12 unit SQ ASDIR 07/19/16 Metformin HCl 500 mg PO BID 08/09/16 Pantoprazole Sodium [Protonix] 40 mg PO DAILY 10/26/16 Rivaroxaban [Xarelto -] 10 mg PO DAILY 10/26/16 Family Disease History - Family Disease History Family Disease History: Diabetes: Brother (alcoholic cirrhosis), Sister, [place]: Mother (breast Ca), Other: Father ( from alcohol related complications) Review of Systems - Review of Systems Constitutional: reports: Lethargy, Malaise, Weakness Eyes: reports: No Symptoms HENT: reports: No Symptoms Neck: reports: No Symptoms Cardiovascular: reports: No Symptoms Respiratory: reports: Cough Gastrointestinal: reports: No Symptoms Genitourinary: reports: No Symptoms Musculoskeletal: reports: Muscle Weakness Integumentary: reports: No Symptoms Neurological: reports: Change in Speech Endocrine: reports: No Symptoms Hematology/Lymphatic: reports: No Symptoms Psychiatric: reports: No Symptoms Physical Examination Vital Signs: Vital Signs Temperature 97.7 F 10/27/16 13:40 Pulse Rate 52 L 10/27/16 13:40 Respiratory Rate 18 10/27/16 13:40 Blood Pressure 120/64 10/27/16 13:40 O2 Sat by Pulse Oximetry (%) 99 10/27/16 09:00 Constitutional: Yes: Well Nourished, No Distress, Calm Cardiovascular: Yes: Regular Rate and Rhythm Respiratory: Yes: Regular Gastrointestinal: Yes: Normal Bowel Sounds Musculoskeletal: Yes: Muscle Weakness (GENERALIZED) Edema: No Peripheral Pulses WNL: No Peripheral Pulses: Left Doralis Pedis: 1+, Right Dorsalis Pedis: 1+ Wound/Incision: Yes: Clean/Dry (LEFT 4TH TOE) Neurological: Yes: Alert, Oriented Psychiatric: Yes: Alert, Oriented Labs: CBC, BMP 10/27/16 06:35 10/27/16 06:35 Problem List - Problems (1) Elevated troponin I level Assessment/Plan: Likely non cardiac, Inflammatory vs infection, ECHO pending. Code(s): R74.8 - ABNORMAL LEVELS OF OTHER SERUM ENZYMES (2) Fever Assessment/Plan: AFEBRILE FOR NOW. CONTINUE TO MONITOR Code(s): R50.9 - FEVER, UNSPECIFIED (3) Hepatic encephalopathy Assessment/Plan: ON LACTULOSE Q12H, GOAL TO HAVE 2-3 BM'S/DAY TO BRING THE AMMONIA LEVEL DOWN. HAS CHRONIC CIRRHOSIS OF THE LIVE SECONDARY TO FATTY LIVER. HAD NEOPLASM OF LIVER YEARS AGO WHICH WAS REMOVED BY DR SOUZA. HE IS ON A LIVER TRANSPLANT LIST. Code(s): K72.90 - HEPATIC FAILURE, UNSPECIFIED WITHOUT COMA (4) Type 2 diabetes mellitus with diabetic neuropathy, unspecified Assessment/Plan: MONITOR CLOSELY, ON INSULIN, DIABETIC DIET. Code(s): E11.40 - TYPE 2 DIABETES MELLITUS WITH DIABETIC NEUROPATHY, UNSP (5) Elevated lactic acid level Assessment/Plan: POSSIBLE CAUSES: DM2 MALIGNANCY? INFECTION Code(s): E87.2 - ACIDOSIS (6) Anemia Assessment/Plan: GEOVANI? CHRONIC DISEASE STOOL OB ON XARELTO FOR DVT PROPHYLAXIS MAY NEED TRANSFUSION FOR HEMOGLOBIN BELOW 8 MG/DL Code(s): D64.9 - ANEMIA, UNSPECIFIED Assessment/Plan AWAITING ECHO STOOL OB HIS H/H IS DROPPING LACTULOSE BID PHYSICAL THERAPY LABS IN AM
[2016-10-27] MEDS: LACTULOSE 20 GM/30 ML UDC (FOR ORAL USE ONLY) PO SCH (21:14)
[2016-10-27] MEDS: MAGNESIUM OXIDE 400 MG TABLET (FP) PO SCH (21:15)
[2016-10-27] MEDS: ATORVASTATIN CA 10 MG TABLET (FP) PO SCH (21:15)
[2016-10-28] MEDS: INSULIN DETEMIR 100 UNITS/ML MDV SQ SCH ×2 (06:29→22:40)
[2016-10-28] MEDS: INSULIN SLIDING SCALE (NOVOLOG) 1 VIAL SQ SCH ×4 (06:30→22:41)
[2016-10-28] MEDS ORDERED: INSULIN (NOVOLOG) ASPART 100 UNITS/ML 10ML VIAL ONE ×2 (06:35→12:10)
[2016-10-28 07:50] LABS: BASOPHIL 0.7 % (0-2.0); EOSINOPHIL 1.5 % (0-4.5); MCH 30.1 pg (25.7-33.7); MCHC 33.7 g/dl (32.0-35.9); MEAN CELL VOLUME 89.4 fl (80-96); MEAN PLT VOLUME 8.1 fl (7.5-11.1); NEUTROPHILS 63.5 % (42.8-82.8); PLATELET COUNT 67 K/MM3 (134-434); RDW 17.1 % (11.9-15.9); WHITE BLOOD COUNT 4.8 K/mm3 (4.0-10.0)
[2016-10-28 08:16] LABS: ALBUMIN 2.5 g/dl (3.4-5.0); ANION GAP 9 (8-16); BILIRUBIN,TOTAL 0.9 mg/dL (0.2-1.0); CALCIUM 8.9 mg/dL (8.5-10.1); CO2 27 mmol/L (21-32); CREATININE 1.1 mg/dL (0.7-1.3); GLUCOSE,RANDOM 196 mg/dL (74-106); SGOT/AST 34 U/L (15-37); SGPT/ALT 30 U/L (12-78); TOT PROT 6.5 g/dl (6.4-8.2)
[2016-10-28 08:18] LABS: ALK PHOS 107 U/L (45-117); FERRITIN 15.003 ng/ml (16.4-293.9)
[2016-10-28] MEDS ORDERED: RANOLAZINE E.R. 500 MG TABLET (FP) ONE ×2 (10:51→22:26)
[2016-10-28] MEDS ORDERED: PT OWN MED DRAWER 7, Y5N ONE (10:51)
[2016-10-28] MEDS: ASPIRIN 81 MG CHEWABLE TABLETS PO SCH (11:01)
[2016-10-28] MEDS: LACTULOSE 20 GM/30 ML UDC (FOR ORAL USE ONLY) PO SCH ×2 (11:01→22:39)
[2016-10-28] MEDS: RANOLAZINE E.R. 1,000 MG TABLET (FP) PO SCH ×2 (11:01→22:42)
[2016-10-28] MEDS: SPIRONOLACTONE 25 MG TABLET (FP) PO SCH (11:02)
[2016-10-28] MEDS: FUROSEMIDE 40 MG TABLET (FP) PO SCH (11:02)
[2016-10-28] MEDS: PANTOPRAZOLE 40 MG TABLET (FP) PO SCH (11:02)
[2016-10-28] MEDS: NADOLOL 20 MG TABLET (FP) PO SCH (11:03)
[2016-10-28] MEDS: MAGNESIUM OXIDE 400 MG TABLET (FP) PO SCH ×2 (11:03→22:41)
[2016-10-28] MEDS: RIVAROXABAN 10 MG TABLET PO SCH (11:03)
--- NOTE | 2016-10-28 12:22 | CONSULT ---
Consult - text type - Consultation Consultation Note: Neurology History of Present Illness The patient is a 56 year-old man with anemia, liver cell carcinoma, hepatic encephalopathy (patient is on a liver transplant list), hypertension, hypercholesterolemia, cerebrovascular accident, insulin-dependent diabetes mellitus, gastritis, esophageal varices who presents to the emergency department for altered mental status. As per patient's the patient is typically active and ambulatory with a cane. She noted last night, that the patient appeared weak, did not walk, felt sleepy, had a continuous dry cough and had a slurred speech. Patient this morning had the same symptoms, thus EMS was activated. He presented to the hospital and was admitted for further medical management. CT head completed and did not show acute changes. There was concern regarding patient's speech being slurred. Past History - Past Medical History Anemia: Yes Asthma: No Cancer: Yes (LIVER) Cardiac Disorders: Yes CVA: Yes COPD: No CHF: No Dementia: No Diabetes: Yes (IDDM) GI Disorders: Yes (ESOPHAGEAL VARICES,GASTRITIS) Disorders: No HTN: Yes (PORTAL) Hypercholesterolemia: Yes Liver Disease: Yes (LIVER CELL CARCINOMA;CIRRHOSIS OF LIVER) Seizures: No Thyroid Disease: No - Surgical History Abdominal Surgery: No Appendectomy: No Cardiac Surgery: Yes (CARDIAC STENTS) Cholecystectomy: Yes Lung Surgery: No Neurologic Surgery: No Orthopedic Surgery: No - Psycho/Social/Smoking Cessation Hx Anxiety: No Suicidal Ideation: No Smoking Status: No Smoking History: Never smoked Have you smoked in the past 12 months: No Number of Cigarettes Smoked Daily: 0 Hx Alcohol Use: No Drug/Substance Use Hx: No Substance Use Type: None Hx Substance Use Treatment: No - Past Medical History Allergies/Adverse Reactions: Allergies Allergy/AdvReac Type Severity Reaction Status Date / Time Iodinated Contrast Media - Allergy Verified 04/30/16 15:39 Oral and [Iodinated Contrast Media - IV Dye] Active Medications Aspirin (Asa -) 81 mg PO DAILY [facility] Last Admin: 10/28/16 11:01 Dose: 81 mg Atorvastatin Calcium (Lipitor -) 10 mg PO HS [facility] Last Admin: 10/27/16 21:15 Dose: 10 mg Furosemide (Lasix -) 40 mg PO DAILY [facility] Last Admin: 10/28/16 11:02 Dose: 40 mg Insulin Aspart (Novolog Vial Sliding Scale -) 1 vial SQ ACHS [facility] PRN Reason: Protocol Last Admin: 10/28/16 12:12 Dose: 5 unit Insulin Detemir (Levemir Vial) 40 units SQ DAILY@0700 [facility] Last Admin: 10/28/16 06:29 Dose: 40 units Insulin Detemir (Levemir Vial) 15 units SQ HS [facility] Last Admin: 10/27/16 21:15 Dose: 15 units Lactulose (Cephulac (Oral Use)) 20 gm PO BID [facility] Last Admin: 10/28/16 11:01 Dose: 20 gm Magnesium Oxide (Mag-Ox -) 400 mg PO BID [facility] Last Admin: 10/28/16 11:03 Dose: 400 mg Nadolol (Corgard -) 20 mg PO DAILY [facility] Last Admin: 10/28/16 11:03 Dose: 20 mg Pantoprazole Sodium (Protonix -) 40 mg PO DAILY [facility] Last Admin: 10/28/16 11:02 Dose: 40 mg Ranolazine (Ranexa -) 1,000 mg PO BID [facility] Last Admin: 10/28/16 11:01 Dose: 1,000 mg Rivaroxaban (Xarelto -) 10 mg PO DAILY [facility] Last Admin: 10/28/16 11:03 Dose: 10 mg Spironolactone (Aldactone -) 50 mg PO DAILY [facility] Last Admin: 10/28/16 11:02 Dose: 50 mg Review of Systems GENERAL/CONSTITUTIONAL: No fever or chills. No weakness. HEAD, EYES, EARS, NOSE AND THROAT: No change in vision. No ear pain or discharge. No sore throat. CARDIOVASCULAR: No chest pain or shortness of breath. RESPIRATORY: Yes: Cough. No wheezing, or hemoptysis. GASTROINTESTINAL: No nausea, vomiting, diarrhea or constipation. GENITOURINARY: No dysuria, frequency, or change in urination. MUSCULOSKELETAL: No joint or muscle swelling or pain. No neck or back pain. SKIN: No rash NEUROLOGIC: Yes: Altered mental status. Change in strength/sensation. Slurred speech. No vertigo, loss of consciousness. ENDOCRINE: No increased thirst. No abnormal weight change. HEMATOLOGIC/LYMPHATIC: Yes: History of anemia. No easy bleeding, or history of blood clots. ALLERGIC/IMMUNOLOGIC: No hives or skin allergy. *Physical Exam - Vital Signs Last Vital Signs Temp Pulse Resp BP Pulse Ox 99.2 F 67 18 133/70 99 10/26/16 11:19 10/26/16 11:19 10/26/16 11:19 10/26/16 11:19 10/26/16 11:19 GENERAL: Awake, alert, and oriented to person and place, in no acute distress. HEAD: No signs of trauma EYES: PERRLA, EOMI, sclera anicteric, conjunctiva clear ENT: Auricles normal inspection, hearing grossly normal, nares patent, oropharynx clear without exudates. Dry mucosa NECK: Normal ROM, supple, no lymphadenopathy, JVD, or masses LUNGS: Breath sounds equal, clear to auscultation bilaterally. No wheezes, and no crackles HEART: Regular rate and rhythm, normal S1 and S2, no murmurs, rubs or gallops ABDOMEN: Soft, nontender, normoactive bowel sounds. No guarding, no rebound. No masses EXTREMITIES: Normal range of motion, no edema. No clubbing or cyanosis. No cords, erythema, or tenderness NEUROLOGICAL: Cranial nerves II through XII grossly intact. ?slurring speech. Gait not tested due to confusion. Motor and sensation intact. SKIN: Warm, Dry, normal turgor, no rashes or lesions noted. CBCD WBC 4.8 K/mm3 (4.0-10.0) 10/28/16 06:45 RBC 2.97 M/mm3 (4.00-5.60) L 10/28/16 06:45 Hgb 9.0 GM/dL (11.7-16.9) L 10/28/16 06:45 Hct 26.6 % (35.4-49) L 10/28/16 06:45 MCV 89.4 fl (80-96) 10/28/16 06:45 MCHC 33.7 g/dl (32.0-35.9) 10/28/16 06:45 RDW 17.1 % (11.9-15.9) H 10/28/16 06:45 Plt Count 67 K/MM3 (134-434) L 10/28/16 06:45 MPV 8.1 fl (7.5-11.1) 10/28/16 06:45 CMP Sodium 139 mmol/L (136-145) 10/28/16 06:45 Potassium 4.0 mmol/L (3.5-5.1) 10/28/16 06:45 Chloride 103 mmol/L (98-107) 10/28/16 06:45 Carbon Dioxide 27 mmol/L (21-32) 10/28/16 06:45 Anion Gap 9 (8-16) 10/28/16 06:45 BUN 16 mg/dL (7-18) 10/28/16 06:45 Creatinine 1.1 mg/dL (0.7-1.3) 10/28/16 06:45 Creat Clearance w eGFR > 60 (>60) 10/28/16 06:45 Calcium 8.9 mg/dL (8.5-10.1) 10/28/16 06:45 Total Bilirubin 0.9 mg/dL (0.2-1.0) 10/28/16 06:45 AST 34 U/L (15-37) 10/28/16 06:45 ALT 30 U/L (12-78) 10/28/16 06:45 Alkaline Phosphatase 107 U/L (45-117) 10/28/16 06:45 Total Protein 6.5 g/dl (6.4-8.2) 10/28/16 06:45 Albumin 2.5 g/dl (3.4-5.0) L 10/28/16 06:45 - RADIOLOGY Radiograph Interpretation: 10/26/16 13:01 EXAM: CT/HEAD CT WITHOUT CONTRAST Interpreted by Dr. Beto Houser IMPRESSION: Since 01/02/2015, there remains mild volume loss. The ventricles and basal cisterns appear unremarkable. Questionable minimal periventricular chronic microvascular ischemic changes. No mass lesion, gross acute infarct or intracranial hemorrhage is identified. There is no shift of the midline structures. Previously described left pontine old lacunar infarcts are not grossly appreciated on this exam. The calvarium is intact. Visualized paranasal sinuses are well aerated. Mild deviation of the nasal septum to the right with a prominent right sided bony spur is present. Calcification of the cavernous carotid arteries are present. The mastoid air cells are well aerated Plan: 56 year-old man with anemia, liver cell carcinoma, hepatic encephalopathy ( patient is on a liver transplant list), hypertension, hypercholesterolemia, cerebrovascular accident, insulin-dependent diabetes mellitus, gastritis, esophageal varices who presents to the emergency department for altered mental status. As per patient's the patient is typically active and ambulatory with a cane. She noted last night, that the patient appeared weak, did not walk , felt sleepy, had a continuous dry cough and had a slurred speech. Patient this morning had the same symptoms, thus EMS was activated. He presented to the hospital and was admitted for further medical management. CT head completed and did not show acute changes. There was concern regarding patient's speech being slurred. Most likely metabolic encephalopathy 2/2 hepatic disease. Will order MRI brain to confirm no infarct as CT not specific enough in early stages. Recommend continued Lactulose and optimization of liver.
--- NOTE | 2016-10-28 13:54 | PN ---
Progress Note, Physician Chief Complaint: no complaints tele sbrady 40-50 no sx. History of Present Illness: 56M anemia, cirrhosis, HCC, hepatic encephalopathy (patient is on a liver transplant list), hypertension,portal vein thrombosis on Xarelto, hypercholesterolemia, cerebrovascular accident, insulin-dependent diabetes mellitus, gastritis, esophageal varices who presents to the emergency department for altered mental status. Treated for hepatic encephalopahy with improvement. Noted with minimally elevated troponin. No symptoms of chest pain , sob, palpitations, orthopnea, pnd or edema. Does have a history of CAD and remote stent placement. - Current Medication List Current Medications: Active Medications Aspirin (Asa -) 81 mg PO DAILY [facility] Last Admin: 10/28/16 11:01 Dose: 81 mg Atorvastatin Calcium (Lipitor -) 10 mg PO HS [facility] Last Admin: 10/27/16 21:15 Dose: 10 mg Furosemide (Lasix -) 40 mg PO DAILY [facility] Last Admin: 10/28/16 11:02 Dose: 40 mg Insulin Aspart (Novolog Vial Sliding Scale -) 1 vial SQ [facility] PRN Reason: Protocol Last Admin: 10/28/16 12:12 Dose: 5 unit Insulin Detemir (Levemir Vial) 40 units SQ DAILY@0700 [facility] Last Admin: 10/28/16 06:29 Dose: 40 units Insulin Detemir (Levemir Vial) 15 units SQ HS [facility] Last Admin: 10/27/16 21:15 Dose: 15 units Lactulose (Cephulac (Oral Use)) 20 gm PO BID [facility] Last Admin: 10/28/16 11:01 Dose: 20 gm Magnesium Oxide (Mag-Ox -) 400 mg PO BID [facility] Last Admin: 10/28/16 11:03 Dose: 400 mg Nadolol (Corgard -) 20 mg PO DAILY [facility] Last Admin: 10/28/16 11:03 Dose: 20 mg Pantoprazole Sodium (Protonix -) 40 mg PO DAILY [facility] Last Admin: 10/28/16 11:02 Dose: 40 mg Ranolazine (Ranexa -) 1,000 mg PO BID [facility] Last Admin: 10/28/16 11:01 Dose: 1,000 mg Rivaroxaban (Xarelto -) 10 mg PO DAILY [facility] Last Admin: 10/28/16 11:03 Dose: 10 mg Spironolactone (Aldactone -) 50 mg PO DAILY [facility] Last Admin: 10/28/16 11:02 Dose: 50 mg - Objective Vital Signs: Vital Signs Temperature 98.7 F 10/28/16 10:59 Pulse Rate 49 L 10/28/16 10:59 Respiratory Rate 20 10/28/16 10:59 Blood Pressure 111/52 10/28/16 10:59 O2 Sat by Pulse Oximetry (%) 99 10/27/16 21:00 Constitutional: Yes: Well Nourished, No Distress Eyes: Yes: Conjunctiva Clear HENT: Yes: Atraumatic, Normocephalic Neck: Yes: Supple, Trachea Midline Cardiovascular: Yes: Regular Rate and Rhythm, Bradycardia Respiratory: Yes: Regular, CTA Bilaterally Gastrointestinal: Yes: Normal Bowel Sounds, Soft Extremities: Yes: WNL Edema: No Peripheral Pulses WNL: Yes Labs: CBC, BMP 10/28/16 06:45 10/28/16 06:45 INR, PTT INR 1.28 (0.82-1.09) H 10/27/16 06:35 Problem List - Problems (1) Elevated troponin I level Assessment/Plan: He has no symptoms, no ecg changes and a minimally elevated troponin level which follows a nonischemic pattern. Low risk for true ACS. No need for telemetry. Echo done, results pending. Conservative cardiac care for now. Will follow with you. Continue rivaroxiban for portal vein thrombosis. Would continue low dose nadolol despite sinus fermín given its benefits in this patient and lack of symptoms. Can ambulate and watch for chronotropic response or symptoms. Code(s): R74.8 - ABNORMAL LEVELS OF OTHER SERUM ENZYMES
--- NOTE | 2016-10-28 18:14 | PN ---
Progress Note, Physician Chief Complaint: WEAKNESS, SLURRED SPEECH, AMS History of Present Illness: ORIGINALLY CAME IN FOR AMS, WEAKNESS AND SLURRED SPEECH. IS SITTING COMFORTABLY IN THE CHAIR. NAD. WAS SEEN BY NEUROLOGY. MRI BRAIN ORDERED. SEEN BY GI FOR HEPATIC ENCEPHALOPATHY. - Current Medication List Current Medications: Active Medications Aspirin (Asa -) 81 mg PO DAILY [facility] Last Admin: 10/28/16 11:01 Dose: 81 mg Atorvastatin Calcium (Lipitor -) 10 mg PO HS [facility] Last Admin: 10/27/16 21:15 Dose: 10 mg Furosemide (Lasix -) 40 mg PO DAILY [facility] Last Admin: 10/28/16 11:02 Dose: 40 mg Insulin Aspart (Novolog Vial Sliding Scale -) 1 vial SQ ACHS [facility] PRN Reason: Protocol Last Admin: 10/28/16 17:36 Dose: 7 unit Insulin Detemir (Levemir Vial) 40 units SQ DAILY@0700 [facility] Last Admin: 10/28/16 06:29 Dose: 40 units Insulin Detemir (Levemir Vial) 15 units SQ HS [facility] Last Admin: 10/27/16 21:15 Dose: 15 units Lactulose (Cephulac (Oral Use)) 20 gm PO BID [facility] Last Admin: 10/28/16 11:01 Dose: 20 gm Magnesium Oxide (Mag-Ox -) 400 mg PO BID [facility] Last Admin: 10/28/16 11:03 Dose: 400 mg Nadolol (Corgard -) 20 mg PO DAILY [facility] Last Admin: 10/28/16 11:03 Dose: 20 mg Pantoprazole Sodium (Protonix -) 40 mg PO DAILY [facility] Last Admin: 10/28/16 11:02 Dose: 40 mg Ranolazine (Ranexa -) 1,000 mg PO BID [facility] Last Admin: 10/28/16 11:01 Dose: 1,000 mg Rivaroxaban (Xarelto -) 10 mg PO DAILY [facility] Last Admin: 10/28/16 11:03 Dose: 10 mg Spironolactone (Aldactone -) 50 mg PO DAILY [facility] Last Admin: 10/28/16 11:02 Dose: 50 mg - Objective Vital Signs: Vital Signs Temperature 98 F 10/28/16 15:35 Pulse Rate 48 L 10/28/16 15:35 Respiratory Rate 18 10/28/16 15:35 Blood Pressure 103/56 10/28/16 15:35 O2 Sat by Pulse Oximetry (%) 97 10/28/16 11:00 Constitutional: Yes: Well Nourished, No Distress, Calm Cardiovascular: Yes: Regular Rate and Rhythm Respiratory: Yes: Regular Gastrointestinal: Yes: Normal Bowel Sounds Musculoskeletal: Yes: Muscle Weakness Edema: No Peripheral Pulses WNL: No Peripheral Pulses: Left Doralis Pedis: 1+, Right Dorsalis Pedis: 1+ Neurological: Yes: Alert, Oriented Labs: CBC, BMP 10/28/16 06:45 10/28/16 06:45 INR, PTT INR 1.28 (0.82-1.09) H 10/27/16 06:35 Problem List - Problems (1) Elevated troponin I level Assessment/Plan: Likely non cardiac, Inflammatory vs infection, ECHO done today, insignificant. Code(s): R74.8 - ABNORMAL LEVELS OF OTHER SERUM ENZYMES (2) Fever Assessment/Plan: AFEBRILE FOR NOW. CONTINUE TO MONITOR Code(s): R50.9 - FEVER, UNSPECIFIED (3) Hepatic encephalopathy Assessment/Plan: ON LACTULOSE Q12H, GOAL TO HAVE 2-3 BM'S/DAY TO BRING THE AMMONIA LEVEL DOWN. HAS CHRONIC CIRRHOSIS OF THE LIVE SECONDARY TO FATTY LIVER. HAD NEOPLASM OF LIVER YEARS AGO WHICH WAS REMOVED BY DR SOUZA. HE IS ON A LIVER TRANSPLANT LIST. Code(s): K72.90 - HEPATIC FAILURE, UNSPECIFIED WITHOUT COMA (4) Type 2 diabetes mellitus with diabetic neuropathy, unspecified Assessment/Plan: MONITOR CLOSELY, ON INSULIN, DIABETIC DIET. Code(s): E11.40 - TYPE 2 DIABETES MELLITUS WITH DIABETIC NEUROPATHY, UNSP (5) Elevated lactic acid level Assessment/Plan: POSSIBLE CAUSES: DM2 MALIGNANCY? INFECTION Code(s): E87.2 - ACIDOSIS (6) Anemia Assessment/Plan: GEOVANI? CHRONIC DISEASE STOOL OB PENDING AWAITING IRON STUDIES ON XARELTO FOR DVT PROPHYLAXIS MAY NEED TRANSFUSION FOR HEMOGLOBIN BELOW 8 MG/DL Code(s): D64.9 - ANEMIA, UNSPECIFIED Assessment/Plan MRI PENDING STOOL OB HIS H/H IS DROPPING LACTULOSE BID PHYSICAL THERAPY LABS IN AM
[2016-10-28] MEDS: ATORVASTATIN CA 10 MG TABLET (FP) PO SCH (22:40)
[2016-10-29] MEDS: INSULIN DETEMIR 100 UNITS/ML MDV SQ SCH ×2 (06:19→22:57)
[2016-10-29] MEDS: INSULIN SLIDING SCALE (NOVOLOG) 1 VIAL SQ SCH ×4 (06:20→22:58)
[2016-10-29 07:37] LABS: BASOPHIL 0.7 % (0-2.0); EOSINOPHIL 1.2 % (0-4.5); MCH 30.4 pg (25.7-33.7); MCHC 33.9 g/dl (32.0-35.9); MEAN CELL VOLUME 89.5 fl (80-96); MEAN PLT VOLUME 8.4 fl (7.5-11.1); NEUTROPHILS 64.6 % (42.8-82.8); PLATELET COUNT 70 K/MM3 (134-434); WHITE BLOOD COUNT 5.5 K/mm3 (4.0-10.0)
[2016-10-29 08:07] LABS: SERUM IRON 40 ug/dL (38-169); TOTAL IRON BINDING CAPACITY 268 ug/dL (250-450); UIBC 228 ug/dL (111-343)
[2016-10-29 08:14] LABS: ALBUMIN 2.8 g/dl (3.4-5.0); ANION GAP 9 (8-16); CALCIUM 8.8 mg/dL (8.5-10.1); CO2 27 mmol/L (21-32); GLUCOSE,RANDOM 236 mg/dL (74-106)
[2016-10-29 08:18] LABS: ALK PHOS 113 U/L (45-117); BILIRUBIN,TOTAL 1.3 mg/dL (0.2-1.0); CREATININE 1.2 mg/dL (0.7-1.3); SGOT/AST 31 U/L (15-37); SGPT/ALT 31 U/L (12-78); TOT PROT 6.9 g/dl (6.4-8.2)
--- NOTE | 2016-10-29 11:01 | PN ---
Progress Note (short form) - Note Progress Note: Neurology History of Present Illness The patient is a 56 year-old man with anemia, liver cell carcinoma, hepatic encephalopathy (patient is on a liver transplant list), hypertension, hypercholesterolemia, cerebrovascular accident, insulin-dependent diabetes mellitus, gastritis, esophageal varices who presents to the emergency department for altered mental status. As per patient's the patient is typically active and ambulatory with a cane. She noted last night, that the patient appeared weak, did not walk, felt sleepy, had a continuous dry cough and had a slurred speech. CT head completed and did not show acute changes. There was concern regarding patient's speech being slurred. MRI brain ordered and being completed this AM. Active Medications Aspirin (Asa -) 81 mg PO DAILY [facility] Last Admin: 10/28/16 11:01 Dose: 81 mg Atorvastatin Calcium (Lipitor -) 10 mg PO HS [facility] Last Admin: 10/28/16 22:40 Dose: 10 mg Furosemide (Lasix -) 40 mg PO DAILY [facility] Last Admin: 10/28/16 11:02 Dose: 40 mg Insulin Aspart (Novolog Vial Sliding Scale -) 1 vial SQ [facility] PRN Reason: Protocol Last Admin: 10/29/16 06:20 Dose: 2 unit Insulin Detemir (Levemir Vial) 40 units SQ DAILY@0700 [facility] Last Admin: 10/29/16 06:19 Dose: 40 units Insulin Detemir (Levemir Vial) 15 units SQ HS [facility] Last Admin: 10/28/16 22:40 Dose: 15 units Lactulose (Cephulac (Oral Use)) 20 gm PO BID [facility] Last Admin: 10/28/16 22:39 Dose: 20 gm Magnesium Oxide (Mag-Ox -) 400 mg PO BID [facility] Last Admin: 10/28/16 22:41 Dose: 400 mg Nadolol (Corgard -) 20 mg PO DAILY [facility] Last Admin: 10/28/16 11:03 Dose: 20 mg Pantoprazole Sodium (Protonix -) 40 mg PO DAILY [facility] Last Admin: 10/28/16 11:02 Dose: 40 mg Ranolazine (Ranexa -) 1,000 mg PO BID [facility] Last Admin: 10/28/16 22:42 Dose: 1,000 mg Rivaroxaban (Xarelto -) 10 mg PO DAILY [facility] Last Admin: 10/28/16 11:03 Dose: 10 mg Spironolactone (Aldactone -) 50 mg PO DAILY [facility] Last Admin: 10/28/16 11:02 Dose: 50 mg *Physical Exam Vital Signs Temperature 98.1 F 10/28/16 18:00 Pulse Rate 54 L 10/28/16 22:47 Respiratory Rate 18 10/28/16 22:47 Blood Pressure 131/68 10/28/16 22:47 O2 Sat by Pulse Oximetry (%) 96 10/28/16 21:00 GENERAL: Awake, alert, and oriented to person and place, in no acute distress. HEAD: No signs of trauma EYES: PERRLA, EOMI, sclera anicteric, conjunctiva clear ENT: Auricles normal inspection, hearing grossly normal, nares patent, oropharynx clear without exudates. Dry mucosa NECK: Normal ROM, supple, no lymphadenopathy, JVD, or masses LUNGS: Breath sounds equal, clear to auscultation bilaterally. No wheezes, and no crackles HEART: Regular rate and rhythm, normal S1 and S2, no murmurs, rubs or gallops ABDOMEN: Soft, nontender, normoactive bowel sounds. No guarding, no rebound. No masses EXTREMITIES: Normal range of motion, no edema. No clubbing or cyanosis. No cords, erythema, or tenderness NEUROLOGICAL: Cranial nerves II through XII grossly intact. ?slurring speech. Gait not tested due to confusion. Motor and sensation intact. SKIN: Warm, Dry, normal turgor, no rashes or lesions noted. CBCD WBC 5.5 K/mm3 (4.0-10.0) 10/29/16 06:40 RBC 3.11 M/mm3 (4.00-5.60) L 10/29/16 06:40 Hgb 9.5 GM/dL (11.7-16.9) L 10/29/16 06:40 Hct 27.9 % (35.4-49) L 10/29/16 06:40 MCV 89.5 fl (80-96) 10/29/16 06:40 MCHC 33.9 g/dl (32.0-35.9) 10/29/16 06:40 RDW 17.0 % (11.9-15.9) H 10/29/16 06:40 Plt Count 70 K/MM3 (134-434) L 10/29/16 06:40 MPV 8.4 fl (7.5-11.1) 10/29/16 06:40 CMP Sodium 136 mmol/L (136-145) 10/29/16 06:40 Potassium 4.4 mmol/L (3.5-5.1) 10/29/16 06:40 Chloride 100 mmol/L (98-107) 10/29/16 06:40 Carbon Dioxide 27 mmol/L (21-32) 10/29/16 06:40 Anion Gap 9 (8-16) 10/29/16 06:40 BUN 16 mg/dL (7-18) 10/29/16 06:40 Creatinine 1.2 mg/dL (0.7-1.3) 10/29/16 06:40 Creat Clearance w eGFR > 60 (>60) 10/29/16 06:40 Calcium 8.8 mg/dL (8.5-10.1) 10/29/16 06:40 Total Bilirubin 1.3 mg/dL (0.2-1.0) H D 10/29/16 06:40 AST 31 U/L (15-37) 10/29/16 06:40 ALT 31 U/L (12-78) 10/29/16 06:40 Alkaline Phosphatase 113 U/L (45-117) 10/29/16 06:40 Total Protein 6.9 g/dl (6.4-8.2) 10/29/16 06:40 Albumin 2.8 g/dl (3.4-5.0) L 10/29/16 06:40 - RADIOLOGY EXAM: CT/HEAD CT WITHOUT CONTRAST Interpreted by Dr. Beto Houser IMPRESSION: Since 01/02/2015, there remains mild volume loss. The ventricles and basal cisterns appear unremarkable. Questionable minimal periventricular chronic microvascular ischemic changes. No mass lesion, gross acute infarct or intracranial hemorrhage is identified. There is no shift of the midline structures. Previously described left pontine old lacunar infarcts are not grossly appreciated on this exam. The calvarium is intact. Visualized paranasal sinuses are well aerated. Mild deviation of the nasal septum to the right with a prominent right sided bony spur is present. Calcification of the cavernous carotid arteries are present. The mastoid air cells are well aerated Plan: 56 year-old man with anemia, liver cell carcinoma, hepatic encephalopathy ( patient is on a liver transplant list), hypertension, hypercholesterolemia, cerebrovascular accident, insulin-dependent diabetes mellitus, gastritis, esophageal varices who presents to the emergency department for altered mental status. As per patient's the patient is typically active and ambulatory with a cane. She noted last night, that the patient appeared weak, did not walk , felt sleepy, had a continuous dry cough and had a slurred speech. Patient this morning had the same symptoms, thus EMS was activated. He presented to the hospital and was admitted for further medical management. CT head completed and did not show acute changes. There was concern regarding patient's speech being slurred. Most likely metabolic encephalopathy 2/2 hepatic disease. MRI brain to completed this AM. Recommend continued Lactulose and optimization of liver.
[2016-10-29] MEDS ORDERED: PT OWN MED DRAWER 7, Y5N ONE (11:38)
[2016-10-29] MEDS ORDERED: RANOLAZINE E.R. 500 MG TABLET (FP) ONE ×2 (11:38→22:45)
[2016-10-29] MEDS: LACTULOSE 20 GM/30 ML UDC (FOR ORAL USE ONLY) PO SCH ×2 (11:47→22:57)
[2016-10-29] MEDS: RIVAROXABAN 10 MG TABLET PO SCH (11:48)
[2016-10-29] MEDS: RANOLAZINE E.R. 1,000 MG TABLET (FP) PO SCH ×2 (11:48→22:57)
[2016-10-29] MEDS: NADOLOL 20 MG TABLET (FP) PO SCH (11:49)
[2016-10-29] MEDS: ASPIRIN 81 MG CHEWABLE TABLETS PO SCH (11:49)
[2016-10-29] MEDS: SPIRONOLACTONE 25 MG TABLET (FP) PO SCH (11:49)
[2016-10-29] MEDS: MAGNESIUM OXIDE 400 MG TABLET (FP) PO SCH ×2 (11:49→22:57)
[2016-10-29] MEDS: FUROSEMIDE 40 MG TABLET (FP) PO SCH (11:50)
[2016-10-29] MEDS: PANTOPRAZOLE 40 MG TABLET (FP) PO SCH (11:50)
--- NOTE | 2016-10-29 14:41 | PN ---
Progress Note, Physician History of Present Illness: Microbiology lab reports + BC GPCCL x one anaerobic bottle from 10/26. No complaints No fever/ chills No infected skin wounds or phlebitis Afebrile WBC WNL - Current Medication List Current Medications: Active Medications Aspirin (Asa -) 81 mg PO DAILY [facility] Last Admin: 10/29/16 11:49 Dose: 81 mg Atorvastatin Calcium (Lipitor -) 10 mg PO HS [facility] Last Admin: 10/28/16 22:40 Dose: 10 mg Furosemide (Lasix -) 40 mg PO DAILY [facility] Last Admin: 10/29/16 11:50 Dose: 40 mg Insulin Aspart (Novolog Vial Sliding Scale -) 1 vial SQ [facility] PRN Reason: Protocol Last Admin: 10/29/16 11:50 Dose: 7 unit Insulin Detemir (Levemir Vial) 40 units SQ DAILY@0700 [facility] Last Admin: 10/29/16 06:19 Dose: 40 units Insulin Detemir (Levemir Vial) 15 units SQ HS [facility] Last Admin: 10/28/16 22:40 Dose: 15 units Lactulose (Cephulac (Oral Use)) 20 gm PO BID [facility] Last Admin: 10/29/16 11:47 Dose: 20 gm Magnesium Oxide (Mag-Ox -) 400 mg PO BID [facility] Last Admin: 10/29/16 11:49 Dose: 400 mg Nadolol (Corgard -) 20 mg PO DAILY [facility] Last Admin: 10/29/16 11:49 Dose: 20 mg Pantoprazole Sodium (Protonix -) 40 mg PO DAILY [facility] Last Admin: 10/28/16 11:02 Dose: 40 mg Ranolazine (Ranexa -) 1,000 mg PO BID [facility] Last Admin: 10/29/16 11:48 Dose: 1,000 mg Rivaroxaban (Xarelto -) 10 mg PO DAILY [facility] Last Admin: 10/29/16 11:48 Dose: 10 mg Spironolactone (Aldactone -) 50 mg PO DAILY [facility] Last Admin: 10/29/16 11:49 Dose: 50 mg - Objective Vital Signs: Vital Signs Temperature 98.2 F 10/29/16 11:41 Pulse Rate 54 L 10/29/16 11:41 Respiratory Rate 24 10/29/16 11:41 Blood Pressure 117/59 10/29/16 11:41 O2 Sat by Pulse Oximetry (%) 96 06/15/17 21:00 Constitutional: Yes: No Distress Eyes: Yes: Conjunctiva Clear Cardiovascular: Yes: Regular Rate and Rhythm, S1, S2 Respiratory: Yes: CTA Bilaterally Gastrointestinal: Yes: Normal Bowel Sounds, Soft, Abdomen, Obese. No: Tenderness Extremities: Yes: Other (L toe amputation site no evidence of infection) Labs: CBC, BMP 10/29/16 06:40 10/29/16 06:40 INR, PTT INR 1.28 (0.82-1.09) H 10/27/16 06:35 Assessment/Plan + BC likely contaminant Hepatic encephalopathy- resolved Chronic liver disease Observe off antibiotics
--- NOTE | 2016-10-29 14:44 | PN ---
Progress Note, Physician Chief Complaint: no complaints tele sbrady 40-50 no sx. History of Present Illness: 56M anemia, cirrhosis, HCC, hepatic encephalopathy (patient is on a liver transplant list), hypertension,portal vein thrombosis on Xarelto, hypercholesterolemia, cerebrovascular accident, insulin-dependent diabetes mellitus, gastritis, esophageal varices who presents to the emergency department for altered mental status. Treated for hepatic encephalopahy with improvement. Noted with minimally elevated troponin. No symptoms of chest pain , sob, palpitations, orthopnea, pnd or edema. Does have a history of CAD and remote stent placement. Echo 10/28/16 normal ef. - Current Medication List Current Medications: Active Medications Aspirin (Asa -) 81 mg PO DAILY [facility] Last Admin: 10/29/16 11:49 Dose: 81 mg Atorvastatin Calcium (Lipitor -) 10 mg PO HS [facility] Last Admin: 10/28/16 22:40 Dose: 10 mg Furosemide (Lasix -) 40 mg PO DAILY [facility] Last Admin: 10/29/16 11:50 Dose: 40 mg Insulin Aspart (Novolog Vial Sliding Scale -) 1 vial SQ [facility] PRN Reason: Protocol Last Admin: 10/29/16 11:50 Dose: 7 unit Insulin Detemir (Levemir Vial) 40 units SQ DAILY@0700 [facility] Last Admin: 10/29/16 06:19 Dose: 40 units Insulin Detemir (Levemir Vial) 15 units SQ HS [facility] Last Admin: 10/28/16 22:40 Dose: 15 units Lactulose (Cephulac (Oral Use)) 20 gm PO BID [facility] Last Admin: 10/29/16 11:47 Dose: 20 gm Magnesium Oxide (Mag-Ox -) 400 mg PO BID [facility] Last Admin: 10/29/16 11:49 Dose: 400 mg Nadolol (Corgard -) 20 mg PO DAILY [facility] Last Admin: 10/29/16 11:49 Dose: 20 mg Pantoprazole Sodium (Protonix -) 40 mg PO DAILY [facility] Last Admin: 10/28/16 11:02 Dose: 40 mg Ranolazine (Ranexa -) 1,000 mg PO BID [facility] Last Admin: 10/29/16 11:48 Dose: 1,000 mg Rivaroxaban (Xarelto -) 10 mg PO DAILY [facility] Last Admin: 10/29/16 11:48 Dose: 10 mg Spironolactone (Aldactone -) 50 mg PO DAILY [facility] Last Admin: 10/29/16 11:49 Dose: 50 mg - Objective Vital Signs: Vital Signs Temperature 98.2 F 10/29/16 11:41 Pulse Rate 54 L 10/29/16 11:41 Respiratory Rate 24 10/29/16 11:41 Blood Pressure 117/59 10/29/16 11:41 O2 Sat by Pulse Oximetry (%) 96 10/28/16 21:00 Constitutional: Yes: Well Nourished, No Distress Eyes: Yes: Conjunctiva Clear HENT: Yes: Atraumatic, Normocephalic Neck: Yes: Supple, Trachea Midline Cardiovascular: Yes: Regular Rate and Rhythm Respiratory: Yes: CTA Bilaterally Gastrointestinal: Yes: Normal Bowel Sounds, Distention Extremities: Yes: WNL Edema: No Peripheral Pulses WNL: Yes Labs: CBC, BMP 10/29/16 06:40 10/29/16 06:40 INR, PTT INR 1.28 (0.82-1.09) H 10/27/16 06:35 Problem List - Problems (1) Elevated troponin I level Assessment/Plan: He has no symptoms, no ecg changes and a minimally elevated troponin level which follows a nonischemic pattern. Low risk for true ACS. No need for telemetry. Echo unremarkable. No further cardiac workup needed. Conservative cardiac care for now. Continue rivaroxiban for portal vein thrombosis. Would continue low dose nadolol despite sinus fermín given its benefits in this patient and lack of symptoms. Can ambulate and watch for chronotropic response or symptoms. will follow as needed. Code(s): R74.8 - ABNORMAL LEVELS OF OTHER SERUM ENZYMES
--- NOTE | 2016-10-29 18:34 | PN ---
Progress Note, Physician Chief Complaint: WEAKNESS, SLURRED SPEECH, AMS History of Present Illness: ORIGINALLY CAME IN FOR AMS, WEAKNESS AND SLURRED SPEECH. IS SITTING COMFORTABLY IN THE CHAIR. NAD. WAS SEEN BY NEUROLOGY. MRI BRAIN ORDERED. SEEN BY GI FOR HEPATIC ENCEPHALOPATHY. - Current Medication List Current Medications: Active Medications Aspirin (Asa -) 81 mg PO DAILY [facility] Last Admin: 10/29/16 11:49 Dose: 81 mg Atorvastatin Calcium (Lipitor -) 10 mg PO HS [facility] Last Admin: 10/28/16 22:40 Dose: 10 mg Furosemide (Lasix -) 40 mg PO DAILY [facility] Last Admin: 10/29/16 11:50 Dose: 40 mg Insulin Aspart (Novolog Vial Sliding Scale -) 1 vial SQ [facility] PRN Reason: Protocol Last Admin: 10/29/16 17:48 Dose: 7 unit Insulin Detemir (Levemir Vial) 40 units SQ DAILY@0700 [facility] Last Admin: 10/29/16 06:19 Dose: 40 units Insulin Detemir (Levemir Vial) 15 units SQ HS [facility] Last Admin: 10/28/16 22:40 Dose: 15 units Lactulose (Cephulac (Oral Use)) 20 gm PO BID [facility] Last Admin: 10/29/16 11:47 Dose: 20 gm Magnesium Oxide (Mag-Ox -) 400 mg PO BID [facility] Last Admin: 10/29/16 11:49 Dose: 400 mg Nadolol (Corgard -) 20 mg PO DAILY [facility] Last Admin: 10/29/16 11:49 Dose: 20 mg Pantoprazole Sodium (Protonix -) 40 mg PO DAILY [facility] Last Admin: 10/28/16 11:02 Dose: 40 mg Ranolazine (Ranexa -) 1,000 mg PO BID [facility] Last Admin: 10/29/16 11:48 Dose: 1,000 mg Rivaroxaban (Xarelto -) 10 mg PO DAILY [facility] Last Admin: 10/29/16 11:48 Dose: 10 mg Spironolactone (Aldactone -) 50 mg PO DAILY [facility] Last Admin: 10/29/16 11:49 Dose: 50 mg - Objective Vital Signs: Vital Signs Temperature 98.4 F 10/29/16 15:43 Pulse Rate 52 L 10/29/16 15:43 Respiratory Rate 18 10/29/16 15:43 Blood Pressure 124/68 10/29/16 15:43 O2 Sat by Pulse Oximetry (%) 96 10/28/16 21:00 Constitutional: Yes: Well Nourished, No Distress Cardiovascular: Yes: Regular Rate and Rhythm Respiratory: Yes: Regular Gastrointestinal: Yes: Normal Bowel Sounds Neurological: Yes: Alert, Oriented Labs: CBC, BMP 10/29/16 06:40 10/29/16 06:40 INR, PTT INR 1.28 (0.82-1.09) H 10/27/16 06:35 Problem List - Problems (1) Elevated troponin I level Assessment/Plan: ECHO UNREMARKABLE Code(s): R74.8 - ABNORMAL LEVELS OF OTHER SERUM ENZYMES (2) Fever Code(s): R50.9 - FEVER, UNSPECIFIED (3) Hepatic encephalopathy Assessment/Plan: ON LACTULOSE Q12H, GOAL TO HAVE 2-3 BM'S/DAY TO BRING THE AMMONIA LEVEL DOWN. HAS CHRONIC CIRRHOSIS OF THE LIVE SECONDARY TO FATTY LIVER. HAD NEOPLASM OF LIVER YEARS AGO WHICH WAS REMOVED BY DR SOUZA. HE IS ON A LIVER TRANSPLANT LIST. Code(s): K72.90 - HEPATIC FAILURE, UNSPECIFIED WITHOUT COMA (4) Type 2 diabetes mellitus with diabetic neuropathy, unspecified Code(s): E11.40 - TYPE 2 DIABETES MELLITUS WITH DIABETIC NEUROPATHY, UNSP (5) Elevated lactic acid level Code(s): E87.2 - ACIDOSIS (6) Anemia Code(s): D64.9 - ANEMIA, UNSPECIFIED Assessment/Plan MRI NEGATIVE STILL ON LACTULOSE PLAN D/C
--- NOTE | 2016-10-29 20:01 | PN ---
GI Progress Note Subjective: GASTROENTEROLOGY FEELING WELL ALERT AND AWAKE AMMONIA SLIGHTLY ELEVATED BUT PT NOT CONFUSED BC ARE CONTAMINATED STOOL OB NEG - Objective Vital Signs: Vital Signs Temperature 98.4 F 10/29/16 15:43 Pulse Rate 52 L 10/29/16 15:43 Respiratory Rate 18 10/29/16 15:43 Blood Pressure 124/68 10/29/16 15:43 O2 Sat by Pulse Oximetry (%) 96 10/28/16 21:00 Constitutional: Obese Eyes: Yes: Conjunctiva Clear HENT: Yes: Normocephalic Cardiovascular: Yes: Regular Rate and Rhythm Respiratory: Yes: WNL Gastrointestinal Inspection: Yes: Other (OBESE) ...Auscultate: Yes: Normoactive Bowel Sounds ...Palpate: Yes: Soft Extremities: Yes: WNL, Amputation Edema: Yes Labs: CBC, BMP 10/29/16 06:40 10/29/16 06:40 INR, PTT INR 1.28 (0.82-1.09) H 10/27/16 06:35 Problem List - Problems (1) Hepatic encephalopathy Assessment/Plan: RESOLVED PROBABLY RELATED TO PRIOR PROCEDURE STABLE FROM HEPATOLOGY STANDPOINT NO OBJECTION TO DISCAHRGE Code(s): K72.90 - HEPATIC FAILURE, UNSPECIFIED WITHOUT COMA (2) Type 2 diabetes mellitus with diabetic neuropathy, unspecified Code(s): E11.40 - TYPE 2 DIABETES MELLITUS WITH DIABETIC NEUROPATHY, UNSP (3) Hepatocellular carcinoma Code(s): C22.0 - LIVER CELL CARCINOMA (4) Nonalcoholic steatohepatitis (HERNANDEZ) Code(s): K75.81 - NONALCOHOLIC STEATOHEPATITIS (HERNANDEZ) (5) Portal hypertension with esophageal varices Code(s): K76.6 - PORTAL HYPERTENSION I85.00 - ESOPHAGEAL VARICES WITHOUT BLEEDING (6) Portal vein thrombosis Code(s): I81 - PORTAL VEIN THROMBOSIS (7) Thrombocytopenia Code(s): D69.6 - THROMBOCYTOPENIA, UNSPECIFIED (8) Anemia Code(s): D64.9 - ANEMIA, UNSPECIFIED (9) CAD (coronary artery disease) Code(s): I25.10 - ATHSCL HEART DISEASE OF [place] CORONARY ARTERY W/O ANG PCTRS (10) Peripheral vascular disease Code(s): I73.9 - PERIPHERAL VASCULAR DISEASE, UNSPECIFIED (11) Elevated troponin I level Code(s): R74.8 - ABNORMAL LEVELS OF OTHER SERUM ENZYMES (12) Fever Code(s): R50.9 - FEVER, UNSPECIFIED
[2016-10-29] MEDS: ATORVASTATIN CA 10 MG TABLET (FP) PO SCH (22:57)
[2016-10-30] MEDS: INSULIN SLIDING SCALE (NOVOLOG) 1 VIAL SQ SCH ×3 (06:15→17:47)
[2016-10-30] MEDS: INSULIN DETEMIR 100 UNITS/ML MDV SQ SCH (06:16)
[2016-10-30] MEDS ORDERED: PT OWN MED DRAWER 7, Y5N ONE ×2 (06:49→09:43)
[2016-10-30] MEDS ORDERED: RANOLAZINE E.R. 500 MG TABLET (FP) ONE (09:42)
[2016-10-30] MEDS: MAGNESIUM OXIDE 400 MG TABLET (FP) PO SCH (10:48)
[2016-10-30] MEDS: SPIRONOLACTONE 25 MG TABLET (FP) PO SCH (10:48)
[2016-10-30] MEDS: FUROSEMIDE 40 MG TABLET (FP) PO SCH (10:48)
[2016-10-30] MEDS: LACTULOSE 20 GM/30 ML UDC (FOR ORAL USE ONLY) PO SCH (10:48)
[2016-10-30] MEDS: PANTOPRAZOLE 40 MG TABLET (FP) PO SCH (10:48)
[2016-10-30] MEDS: ASPIRIN 81 MG CHEWABLE TABLETS PO SCH (10:48)
[2016-10-30] MEDS: NADOLOL 20 MG TABLET (FP) PO SCH (10:49)
[2016-10-30] MEDS: RIVAROXABAN 10 MG TABLET PO SCH (10:49)
[2016-10-30] MEDS: RANOLAZINE E.R. 1,000 MG TABLET (FP) PO SCH (10:49)
--- NOTE | 2016-10-30 12:40 | PN ---
Progress Note (short form) - Note Progress Note: Neurology History of Present Illness The patient is a 56 year-old man with anemia, liver cell carcinoma, hepatic encephalopathy (patient is on a liver transplant list), hypertension, hypercholesterolemia, cerebrovascular accident, insulin-dependent diabetes mellitus, gastritis, esophageal varices who presents to the emergency department for altered mental status. As per patient's the patient is typically active and ambulatory with a cane. She noted last night, that the patient appeared weak, did not walk, felt sleepy, had a continuous dry cough and had a slurred speech. CT head completed and did not show acute changes. There was concern regarding patient's speech being slurred. MRI brain completed and reviewed, negative for acute changes. Active Medications Aspirin (Asa -) 81 mg PO DAILY [facility] Last Admin: 10/30/16 10:48 Dose: 81 mg Atorvastatin Calcium (Lipitor -) 10 mg PO HS [facility] Last Admin: 10/29/16 22:57 Dose: 10 mg Furosemide (Lasix -) 40 mg PO DAILY [facility] Last Admin: 10/30/16 10:48 Dose: 40 mg Insulin Aspart (Novolog Vial Sliding Scale -) 1 vial SQ [facility] PRN Reason: Protocol Last Admin: 10/30/16 12:10 Dose: 5 unit Insulin Detemir (Levemir Vial) 40 units SQ DAILY@0700 [facility] Last Admin: 10/30/16 06:16 Dose: 40 units Insulin Detemir (Levemir Vial) 15 units SQ HS [facility] Last Admin: 10/29/16 22:57 Dose: 15 units Lactulose (Cephulac (Oral Use)) 20 gm PO BID [facility] Last Admin: 10/30/16 10:48 Dose: 20 gm Magnesium Oxide (Mag-Ox -) 400 mg PO BID [facility] Last Admin: 10/30/16 10:48 Dose: 400 mg Nadolol (Corgard -) 20 mg PO DAILY [facility] Last Admin: 10/30/16 10:49 Dose: 20 mg Pantoprazole Sodium (Protonix -) 40 mg PO DAILY [facility] Last Admin: 10/30/16 10:48 Dose: 40 mg Ranolazine (Ranexa -) 1,000 mg PO BID [facility] Last Admin: 10/30/16 10:49 Dose: 1,000 mg Rivaroxaban (Xarelto -) 10 mg PO DAILY [facility] Last Admin: 10/30/16 10:49 Dose: 10 mg Spironolactone (Aldactone -) 50 mg PO DAILY [facility] Last Admin: 10/30/16 10:48 Dose: 50 mg *Physical Exam Vital Signs Temperature 97.7 F 10/30/16 06:51 Pulse Rate 56 L 10/30/16 10:00 Respiratory Rate 18 10/30/16 10:00 Blood Pressure 110/60 10/30/16 10:00 O2 Sat by Pulse Oximetry (%) 96 10/28/16 21:00 GENERAL: Awake, alert, and oriented to person and place, in no acute distress. HEAD: No signs of trauma EYES: PERRLA, EOMI, sclera anicteric, conjunctiva clear ENT: Auricles normal inspection, hearing grossly normal, nares patent, oropharynx clear without exudates. Dry mucosa NECK: Normal ROM, supple, no lymphadenopathy, JVD, or masses LUNGS: Breath sounds equal, clear to auscultation bilaterally. No wheezes, and no crackles HEART: Regular rate and rhythm, normal S1 and S2, no murmurs, rubs or gallops ABDOMEN: Soft, nontender, normoactive bowel sounds. No guarding, no rebound. No masses EXTREMITIES: Normal range of motion, no edema. No clubbing or cyanosis. No cords, erythema, or tenderness NEUROLOGICAL: Cranial nerves II through XII grossly intact. ?slurring speech. Gait not tested due to confusion. Motor and sensation intact. SKIN: Warm, Dry, normal turgor, no rashes or lesions noted. CBCD WBC 5.5 K/mm3 (4.0-10.0) 10/29/16 06:40 RBC 3.11 M/mm3 (4.00-5.60) L 10/29/16 06:40 Hgb 9.5 GM/dL (11.7-16.9) L 10/29/16 06:40 Hct 27.9 % (35.4-49) L 10/29/16 06:40 MCV 89.5 fl (80-96) 10/29/16 06:40 MCHC 33.9 g/dl (32.0-35.9) 10/29/16 06:40 RDW 17.0 % (11.9-15.9) H 10/29/16 06:40 Plt Count 70 K/MM3 (134-434) L 10/29/16 06:40 MPV 8.4 fl (7.5-11.1) 10/29/16 06:40 CMP Sodium 136 mmol/L (136-145) 10/29/16 06:40 Potassium 4.4 mmol/L (3.5-5.1) 10/29/16 06:40 Chloride 100 mmol/L (98-107) 10/29/16 06:40 Carbon Dioxide 27 mmol/L (21-32) 10/29/16 06:40 Anion Gap 9 (8-16) 10/29/16 06:40 BUN 16 mg/dL (7-18) 10/29/16 06:40 Creatinine 1.2 mg/dL (0.7-1.3) 10/29/16 06:40 Creat Clearance w eGFR > 60 (>60) 10/29/16 06:40 Calcium 8.8 mg/dL (8.5-10.1) 10/29/16 06:40 Total Bilirubin 1.3 mg/dL (0.2-1.0) H D 10/29/16 06:40 AST 31 U/L (15-37) 10/29/16 06:40 ALT 31 U/L (12-78) 10/29/16 06:40 Alkaline Phosphatase 113 U/L (45-117) 10/29/16 06:40 Total Protein 6.9 g/dl (6.4-8.2) 10/29/16 06:40 Albumin 2.8 g/dl (3.4-5.0) L 10/29/16 06:40 - RADIOLOGY CT and MRI reviewed, negative Plan: 56 year-old man with anemia, liver cell carcinoma, hepatic encephalopathy ( patient is on a liver transplant list), hypertension, hypercholesterolemia, cerebrovascular accident, insulin-dependent diabetes mellitus, gastritis, esophageal varices who presents to the emergency department for altered mental status. CT reviewed and MRI brain negative. Most likely metabolic encephalopathy 2/2 hepatic disease. Patient conversive and seems to be at baseline mental status this AM. Will sign off, no further recommendations at this time, continue medical mgmt.
--- NOTE | 2016-10-30 18:34 | PN ---
Progress Note, Physician Chief Complaint: WEAKNESS, SLURRED SPEECH, AMS History of Present Illness: ORIGINALLY CAME IN FOR AMS, WEAKNESS AND SLURRED SPEECH. IS SITTING COMFORTABLY IN THE CHAIR. NAD. WAS SEEN BY NEUROLOGY. MRI BRAIN NEGATIVE. SEEN BY GI FOR HEPATIC ENCEPHALOPATHY. - Current Medication List Current Medications: Active Medications Aspirin (Asa -) 81 mg PO DAILY [facility] Last Admin: 10/30/16 10:48 Dose: 81 mg Atorvastatin Calcium (Lipitor -) 10 mg PO HS [facility] Last Admin: 10/29/16 22:57 Dose: 10 mg Furosemide (Lasix -) 40 mg PO DAILY [facility] Last Admin: 10/30/16 10:48 Dose: 40 mg Insulin Aspart (Novolog Vial Sliding Scale -) 1 vial SQ ACHS [facility] PRN Reason: Protocol Last Admin: 10/30/16 17:47 Dose: 7 unit Insulin Detemir (Levemir Vial) 40 units SQ DAILY@0700 [facility] Last Admin: 10/30/16 06:16 Dose: 40 units Insulin Detemir (Levemir Vial) 15 units SQ HS [facility] Last Admin: 10/29/16 22:57 Dose: 15 units Lactulose (Cephulac (Oral Use)) 20 gm PO BID [facility] Last Admin: 10/30/16 10:48 Dose: 20 gm Magnesium Oxide (Mag-Ox -) 400 mg PO BID [facility] Last Admin: 10/30/16 10:48 Dose: 400 mg Nadolol (Corgard -) 20 mg PO DAILY [facility] Last Admin: 10/30/16 10:49 Dose: 20 mg Pantoprazole Sodium (Protonix -) 40 mg PO DAILY [facility] Last Admin: 10/30/16 10:48 Dose: 40 mg Ranolazine (Ranexa -) 1,000 mg PO BID [facility] Last Admin: 10/30/16 10:49 Dose: 1,000 mg Rivaroxaban (Xarelto -) 10 mg PO DAILY [facility] Last Admin: 10/30/16 10:49 Dose: 10 mg Spironolactone (Aldactone -) 50 mg PO DAILY [facility] Last Admin: 10/30/16 10:48 Dose: 50 mg - Objective Vital Signs: Vital Signs Temperature 98.1 F 10/30/16 14:37 Pulse Rate 57 L 10/30/16 14:37 Respiratory Rate 18 10/30/16 14:37 Blood Pressure 115/62 10/30/16 14:37 O2 Sat by Pulse Oximetry (%) 99 10/30/16 09:00 Constitutional: Yes: Well Nourished, No Distress, Calm Cardiovascular: Yes: Regular Rate and Rhythm Respiratory: Yes: Regular Extremities: Yes: Amputation (LEFT 4TH TOE) Peripheral Pulses: Left Doralis Pedis: 1+, Right Dorsalis Pedis: 1+ Wound/Incision: Yes: Clean/Dry Neurological: Yes: Alert, Oriented Labs: CBC, BMP 10/29/16 06:40 10/29/16 06:40 INR, PTT INR 1.28 (0.82-1.09) H 10/27/16 06:35 Problem List - Problems (1) Elevated troponin I level Assessment/Plan: ECHO UNREMARKABLE Code(s): R74.8 - ABNORMAL LEVELS OF OTHER SERUM ENZYMES (2) Hepatic encephalopathy Assessment/Plan: ON LACTULOSE Q12H, GOAL TO HAVE 2-3 BM'S/DAY TO BRING THE AMMONIA LEVEL DOWN. HAS CHRONIC CIRRHOSIS OF THE LIVE SECONDARY TO FATTY LIVER. HAD NEOPLASM OF LIVER YEARS AGO WHICH WAS REMOVED BY DR SOUZA. HE IS ON A LIVER TRANSPLANT LIST. Code(s): K72.90 - HEPATIC FAILURE, UNSPECIFIED WITHOUT COMA (3) Type 2 diabetes mellitus with diabetic neuropathy, unspecified Assessment/Plan: MONITOR CLOSELY, ON INSULIN, DIABETIC DIET. Code(s): E11.40 - TYPE 2 DIABETES MELLITUS WITH DIABETIC NEUROPATHY, UNSP (4) Anemia Assessment/Plan: STOOL OB WAS NEGATIVE MONITOR OUTPATIENT. Code(s): D64.9 - ANEMIA, UNSPECIFIED Assessment/Plan D/C HOME FOLLOW UP WITH PCP, GI AND HEPATOLOGY IN 1 WEEK.
[2016-10-30 18:43] VITALS: BP 143/74; PULSE 49; TEMP 98.4
== END 2016-10-30 19:30 | disposition home or self-care (01) | DRG 441 ==
LOC: JER 11:12 → JERBED 14:06 → J5S 19:01
PROVIDERS: ADMIT Family Medicine; ATTEND Family Medicine
DX: K72.00 Acute and subacute hepatic failure without coma (principal); G93.41 Metabolic encephalopathy; I81 Portal vein thrombosis; C22.0 Liver cell carcinoma; K76.6 Portal hypertension; I85.10 Secondary esophageal varices without bleeding; R18.8 Other ascites; D64.9 Anemia, unspecified; I10 Essential (primary) hypertension; E78.00 Pure hypercholesterolemia, unspecified; K29.60 Other gastritis without bleeding; I25.10 Atherosclerotic heart disease of native coronary artery without angina pectoris; K75.81 Nonalcoholic steatohepatitis (NASH); I73.89 Other specified peripheral vascular diseases; R74.8 Abnormal levels of other serum enzymes; E11.42 Type 2 diabetes mellitus with diabetic polyneuropathy; K64.8 Other hemorrhoids; R50.9 Fever, unspecified; D69.6 Thrombocytopenia, unspecified; Z86.73 Personal history of transient ischemic attack (TIA), and cerebral infarction without residual deficits; Z79.4 Long term (current) use of insulin; Z89.422 Acquired absence of other left toe(s); Z95.5 Presence of coronary angioplasty implant and graft
CPT/HCPCS: 36415; 70450-TC; 70551-TC; 71010-TC; 80053; 81003; 82140; 82272; 82550; 82728; 83540; 83550; 83605; 83735; 84484; 85025; 85610; 87040; 87070; 87086; 87205; 93005; 93010; 93306-TC; 97116-GP; 97162-PG; 99285-25

== ENCOUNTER 2016-12-07 11:41 | Inpatient (IN) | payer MEDICARE, OTHER ==
[2016-12-07 11:47] VITALS: BMI 36.8
--- NOTE | 2016-12-07 12:35 | PDOC ---
History of Present Illness - General Chief Complaint: Chest Pain Stated Complaint: CHEST PAIN Time Seen by Provider: 12/07/16 12:00 History Source: Patient Exam Limitations: No Limitations - History of Present Illness Initial Comments: 12/07/16 12:31 Patient is a 56M with history of prior MD s/p stents in 2007, obesity, IDDM, and liver cancer (Dx 1 year ago, s/p embolization on liver transplant list) here today complaining of chest pain. He woke up with chest pain this morning without shortness of breath, dizziness, sweating, nausea or other symptoms. The pain has since resolved. He also is complaining of a productive cough for the past week. He denies fevers and chills. He is also complaining of increased belly size, consistent with ascites he's had before requiring drainage. He denies abdominal pain, diarrhea, constipation, and dysuria. Family history is significant for brother who had open heart surgery at 28. Past History - Past Medical History Allergies/Adverse Reactions: Allergies Allergy/AdvReac Type Severity Reaction Status Date / Time Iodinated Contrast Media - Allergy Verified 12/07/16 11:47 Oral and [Iodinated Contrast Media - IV Dye] Home Medications: Ambulatory Orders Aspirin [ASA -] 81 mg PO DAILY 07/15/16 Atorvastatin Ca [Lipitor] 10 mg PO HS 07/15/16 Furosemide [Lasix] 40 mg PO DAILY 07/15/16 Insulin Detemir [Levemir Flextouch] 40 unit SQ DAILY 07/15/16 Multivitamins [Multivit ([facility] Formulary)] 1 tab PO DAILY 07/15/16 Nadolol 20 mg PO DAILY 07/15/16 Nateglinide [Starlix (Nf) -] 60 mg PO BID 07/15/16 Ranolazine [Ranexa] 1,000 mg PO BID 07/15/16 Spironolactone 50 mg PO DAILY 07/15/16 Insulin Lispro [Humalog Kwikpen U-200] 12 unit SQ ASDIR 07/19/16 Metformin HCl 500 mg PO BID 08/09/16 Pantoprazole Sodium [Protonix] 40 mg PO DAILY 10/26/16 Rivaroxaban [Xarelto -] 10 mg PO DAILY 10/26/16 Aspirin [ASA -] 81 mg PO DAILY tab.chew 10/30/16 Lactulose (Oral Use) [Cephulac -] 20 gm PO BID #1 bottle 10/30/16 Magnesium Oxide [Mag-Ox -] 400 mg PO BID #60 tablet 10/30/16 Spironolactone [Aldactone -] 50 mg PO DAILY tablet 10/30/16 Anemia: Yes Asthma: No Cancer: Yes (LIVER) Cardiac Disorders: Yes CVA: Yes COPD: No CHF: No Dementia: No Diabetes: Yes (IDDM) GI Disorders: Yes (ESOPHAGEAL VARICES,GASTRITIS) Disorders: No HTN: Yes (PORTAL) Hypercholesterolemia: Yes Liver Disease: Yes (LIVER CELL CARCINOMA;CIRRHOSIS OF LIVER) Seizures: No Thyroid Disease: No - Surgical History Abdominal Surgery: No Appendectomy: No Cardiac Surgery: Yes (CARDIAC STENTS) Cholecystectomy: Yes Lung Surgery: No Neurologic Surgery: No Orthopedic Surgery: No - Psycho/Social/Smoking Cessation Hx Anxiety: No Suicidal Ideation: No Smoking Status: No Smoking History: Never smoked Have you smoked in the past 12 months: No Number of Cigarettes Smoked Daily: 0 Information on smoking cessation initiated: No Hx Alcohol Use: No Drug/Substance Use Hx: No Substance Use Type: None Hx Substance Use Treatment: No Review of Systems - Review of Systems Constitutional: No: Chills, Fever, Weakness HEENTM: No: Eye Pain, Blurred Vision, Recent change in vision Respiratory: Yes: Cough. No: Shortness of Breath Cardiac (ROS): Yes: Chest Pain. No: Edema, Lightheadedness, Palpitations ABD/GI: No: Constipated, Diarrhea, Nausea, Vomiting : No: Burning, Dysuria Musculoskeletal: No: Joint Pain, Muscle Pain Integumentary: No: Pruritus, Rash Neurological: No: Headache, Numbness Endocrine: No: Increased Thirst, Increased Urine *Physical Exam - Vital Signs Last Vital Signs Temp Pulse Resp BP Pulse Ox 98 F 56 L 18 122/55 100 12/07/16 11:42 12/07/16 11:42 12/07/16 11:42 12/07/16 11:42 12/07/16 11:42 - Physical Exam Comments: 12/07/16 12:39 Gen: Well nourished, in no acute distress HEENT: Normocephalic, atraumatic, non-icteric Lungs: Wheezes in mid right lung field, normal work of breathing Abd: Distended, nontender, fluid wave, normal bowel sounds Ext: 2+ pulses in all extremities, no edema Neuro: Alert, oriented, no focal neuro deficits CV: Regular rate and rhythm, blowing murmur best heard over PMI, nontender Heart Score/ECG Review - History History: Moderately suspicious - Electrocardiogram EKG: Normal - Age Age: 45-65 - Risk Factors Risk Factors Heart Score: Yes Hx Hypercholesterolemia, Yes Hx Hypertension, Yes Hx Diabetes, Yes Positive family hx of cardiac disease, Yes Hx Obesity Based on the list above the patient has:: >/=3 risk factors or Hx atherosclerotic disease - ECG Intrepretation Comment:: 12/07/16 12:43 Regular rate, regular rhythm, left axis deviation, sinus bradycardia, no st elevations or t wave abnormalities ED Treatment Course - LABORATORY CBC & Chemistry Diagram: 12/07/16 12:40 12/07/16 12:40 - RADIOLOGY Radiology Studies Ordered: Category Date Time Status CHEST X-RAY PORTABLE* [RAD] Stat Radiology 12/07/16 12:30 Ordered Medical Decision Making - Medical Decision Making 12/07/16 12:44 Patient is 56M with history of prior MD s/p stents in 2007, CHF, IDDM, HTN, HLD , and liver cancer s/p embolectomy here today complaining of chest pain. Vital signs stable and normal. Differential includes, but is not limited to: pneumonia , fluid overload causing CHF exacerbation, ACS, and angina. EKG, CBC, CMP, Coags , Trop, BNP, CXR, Blood cultures, Lactic acid, Mg, Phos, and UA sent. Plan to drain fluid from abdomen. 12/07/16 14:13 CBC shows a drop of hemoglobin from 9.5 on 10/29/16 to 7.6 today. Troponin positive to .06. BNP to 140. INR to 2.1, taking anticoagulation. Rectal exam showed no gross blood or masses. Guaic sent. Discussed with Dr. Flores, will give two units and admit to his service. *DC/Admit/Observation/Transfer Diagnosis at time of Disposition: Elevated troponin I level - Discharge Dispostion Condition at time of disposition: Stable Admit: Yes - Referrals Referrals: Roxanne Duran MD [Primary Care Provider] - - Attestations Physician Attestion: 07/25/17 14:16 Dr. Rakesh Shanksls, attest that this document has been prepared under my direction and personally reviewed by me in its entirety. I further attest, that it accurately reflects all work, treatment, procedures and medical decision -making performed by me.
[2016-12-07 12:47] LABS: BASOPHIL 0.8 % (0-2.0); EOSINOPHIL 0.3 % (0-4.5); MCH 26.7 pg (25.7-33.7); MCHC 32.3 g/dl (32.0-35.9); MEAN CELL VOLUME 82.8 fl (80-96); MEAN PLT VOLUME 8.4 fl (7.5-11.1); NEUTROPHILS 76.9 % (42.8-82.8); PLATELET COUNT 93 K/MM3 (134-434); RDW 17.8 % (11.9-15.9); WHITE BLOOD COUNT 4.1 K/mm3 (4.0-10.0)
[2016-12-07 13:09] LABS: ALBUMIN 2.7 g/dl (3.4-5.0); ANION GAP 8 (8-16); CALCIUM 8.5 mg/dL (8.5-10.1); CO2 25 mmol/L (21-32); GLUCOSE,RANDOM 185 mg/dL (74-106); MAGNESIUM 1.9 mg/dL (1.8-2.4)
[2016-12-07 13:14] LABS: BILIRUBIN,TOTAL 0.9 mg/dL (0.2-1.0); CREATININE 1.2 mg/dL (0.7-1.3); SGOT/AST 43 U/L (15-37); SGPT/ALT 27 U/L (12-78); TOT PROT 6.6 g/dl (6.4-8.2)
[2016-12-07 13:16] LABS: ALK PHOS 112 U/L (45-117)
[2016-12-07 13:17] LABS: TROPONIN I 0.06 ng/ml (0.00-0.05)
[2016-12-07 13:29] LABS: INR 2.14 (0.82-1.09); PROTHROMBIN TIME (PATIENT) 23.9 SEC (9.98-11.88)
--- NOTE | 2016-12-07 13:39 | EKG ---
Test Reason : Blood Pressure : / mmHG Vent. Rate : 055 BPM Atrial Rate : 055 BPM P-R Int : 180 ms QRS Dur : 102 ms QT Int : 490 ms P-R-T Axes : 018 -33 -03 degrees QTc Int : 468 ms SINUS BRADYCARDIA ATRIAL ABNORMALITY LEFT AXIS DEVIATION (LAHB) MINIMAL VOLTAGE CRITERIA FOR LVH, MAY BE NORMAL VARIANT ABNORMAL ECG WHEN COMPARED WITH ECG OF 27-OCT-2016 08:55, NO SIGNIFICANT CHANGE WAS FOUND Confirmed by JEANNE RUBI MD ([id number]) on 12/07/2016 1:39:34 PM Referred By: Confirmed By:JEANNE RUBI MD
--- NOTE | 2016-12-07 14:33 | PDOC ---
Attending Attestation - Resident Resident Name: Rakesh Dominguez - ED Attending Attestation I have performed the following: I have examined & evaluated the patient, The case was reviewed & discussed with the resident, I agree w/resident's findings & plan, Exceptions are as noted - HPI HPI: 12/07/16 14:28 56-year-old male with past medical history of coronary disease status post stents, obesity, diabetes, liver cancer currently on liver transplant list resents with chest pain. Past pain started this morning but resolved without associated shortness of breath. On review systems, patient also complains of productive cough for the past week. She also reports some abdominal distention which he believes is secondary to ascites but denies abdominal pain or fevers at this time. - Physicial Exam PE: 12/07/16 14:28 GENERAL: Awake, alert, and fully oriented, in no acute distress. +pallorous HEAD: No signs of trauma EYES: PERRLA, EOMI, sclera anicteric, conjunctiva clear ENT: Auricles normal inspection, hearing grossly normal, nares patent, oropharynx clear without exudates. NECK: Normal ROM, supple, no lymphadenopathy, JVD, or masses LUNGS: Breath sounds equal, clear to auscultation bilaterally. No wheezes, and no crackles HEART: Regular rate and rhythm, normal S1 and S2, no murmurs, rubs or gallops ABDOMEN: Soft, nontender, normoactive bowel sounds. No guarding, no rebound. No masses. Abdominal distension appreciated, fluid wave appreciated. No tenderness. EXTREMITIES: Normal range of motion, no edema. No clubbing or cyanosis. No cords, erythema, or tenderness NEUROLOGICAL: Cranial nerves II through XII grossly intact. Normal speech, normal gait SKIN: Warm, Dry, normal turgor, no rashes or lesions noted. - Medical Decision Making 12/07/16 14:31 Within differential is acute coronary syndrome. Patient will need to rule out for IN. However, noted here is anemia. She will need a guaiac and buttress fusion. Patient to be admitted to the hospital for further management. CBC, BMP 12/07/16 12:40 12/07/16 12:40 CMP Sodium 137 mmol/L (136-145) 12/07/16 12:40 Potassium 4.7 mmol/L (3.5-5.1) 12/07/16 12:40 Chloride 104 mmol/L (98-107) 12/07/16 12:40 Carbon Dioxide 25 mmol/L (21-32) 12/07/16 12:40 Anion Gap 8 (8-16) 12/07/16 12:40 BUN 19 mg/dL (7-18) H 12/07/16 12:40 Creatinine 1.2 mg/dL (0.7-1.3) 12/07/16 12:40 Creat Clearance w eGFR > 60 (>60) 12/07/16 12:40 Random Glucose 185 mg/dL (74-106) H D 12/07/16 12:40 Calcium 8.5 mg/dL (8.5-10.1) 12/07/16 12:40 Phosphorus 3.2 mg/dL (2.5-4.9) 12/07/16 12:40 Magnesium 1.9 mg/dL (1.8-2.4) 12/07/16 12:40 Total Bilirubin 0.9 mg/dL (0.2-1.0) D 12/07/16 12:40 AST 43 U/L (15-37) H D 12/07/16 12:40 ALT 27 U/L (12-78) 12/07/16 12:40 Alkaline Phosphatase 112 U/L (45-117) 12/07/16 12:40 Ammonia 156.56 umol/L (11-32) H 12/07/16 13:25 Creatine Kinase 104 IU/L (39-308) 12/07/16 12:40 Troponin I 0.06 ng/ml (0.00-0.05) H 12/07/16 12:40 B-Natriuretic Peptide 140.73 pg/ml (5-125) H 12/07/16 12:40 Total Protein 6.6 g/dl (6.4-8.2) 12/07/16 12:40 Albumin 2.7 g/dl (3.4-5.0) L 12/07/16 12:40 Will treat as symptomatic anemia. Also will trend troponin. Heart Score/ECG Review - History History: Moderately suspicious - Electrocardiogram EKG: Non specific repolarization disturbance - Age Age: 45-65 - Risk Factors Based on the list above the patient has:: >/=3 risk factors or Hx atherosclerotic disease - Troponin Troponin: 1-3x normal limit - Score Heart Score - Total: 6 #1 12/07/16 14:30 NSR 55, LAD, LVH, no std/vladimir, QTC 468 msec
--- NOTE | 2016-12-07 15:12 | CON.CARD ---
Consult Consult Specialty:: Cardiology Referred by:: Dr Flores Reason for Consultation:: chest pain - History of Present Illness Chief Complaint: chest pain, fatigue History of Present Illness: 56M anemia, cirrhosis, HCC, hepatic encephalopathy (patient is on a liver transplant list at [facility]), hypertension, portal vein thrombosis on Xarelto, hypercholesterolemia, cerebrovascular accident, insulin-dependent diabetes mellitus, gastritis, esophageal varices who presents to the emergency department for chest pain, left upper chest, localized and tender, brief without radiation or associated symptoms. He also complains of increasing abdominal girth and fatigue. Noted with minimally elevated troponin. No symptoms of sob, palpitations, orthopnea, pnd or edema. Does have a history of CAD and remote stent placement , former patient of Dr Vegas last seen over 2 years ago per pt and , last stress test 2016 was normal at [facility]. Recently admitted for hepatic encephalopathy in October also noted with nonischemic troponinemia. Echo was normal at the time. 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: Peripheral Neuropathy Cardio/Vascular: Yes: CAD, HTN, Hyperlipdemia Gastrointestinal: Yes: Esophageal Varices, GI Bleed, Gastritis, Hemorrhoids, Ascites, Other Hepatobiliary: Yes: Cirrhosis (h/o esophageal varices s/p banding, related to HERNANDEZ), Cholelithiasis (s/p lap choly), Other (PORTAL VEIN PARTIAL THROMBOSIS, HCC treated with transhepatic heat ablations at [facility]) Renal/: Yes: Renal Inusuff Endocrine: Yes: Diabetes Mellitus - Past Surgical History Past Surgical History: Yes: Hernia Repair, Colonoscopy, Upper Endoscopy, Amputation, Cholecystectomy - Alcohol/Substance Use Hx Alcohol Use: No History of Substance Use: reports: None - Smoking History Smoking history: Never smoked Have you smoked in the past 12 months: No Aproximately how many cigarettes per day: 0 - Social History Usual Living Arrangement: With Spouse ADL: Independent 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 Formulary)] 1 tab PO DAILY 07/15/16 Nadolol 20 mg PO DAILY 07/15/16 Nateglinide [Starlix (Nf) -] 60 mg PO BID 07/15/16 Ranolazine [Ranexa] 1,000 mg PO BID 07/15/16 Spironolactone 50 mg PO DAILY 07/15/16 Insulin Lispro [Humalog Kwikpen U-200] 12 unit SQ ASDIR 07/19/16 Metformin HCl 500 mg PO BID 08/09/16 Pantoprazole Sodium [Protonix] 40 mg PO DAILY 10/26/16 Rivaroxaban [Xarelto -] 10 mg PO DAILY 10/26/16 Aspirin [ASA -] 81 mg PO DAILY tab.chew 10/30/16 Lactulose (Oral Use) [Cephulac -] 20 gm PO BID #1 bottle 10/30/16 Magnesium Oxide [Mag-Ox -] 400 mg PO BID #60 tablet 10/30/16 Spironolactone [Aldactone -] 50 mg PO DAILY tablet 10/30/16 Family Disease History - Family Disease History Family Disease History: Diabetes: Brother (alcoholic cirrhosis), Sister, CA: Mother (breast Ca), Other: Father ( from alcohol related complications) Vital Signs: Vital Signs Temperature 98 F 12/07/16 11:42 Pulse Rate 56 L 12/07/16 11:42 Respiratory Rate 18 12/07/16 11:42 Blood Pressure 122/55 12/07/16 11:42 O2 Sat by Pulse Oximetry (%) 100 12/07/16 11:42 Constitutional: Yes: No Distress, Calm Eyes: Yes: Conjunctiva Clear, EOM Intact HENT: Yes: Atraumatic, Normocephalic Neck: Yes: Supple, Trachea Midline Respiratory: Yes: Regular, CTA Bilaterally Gastrointestinal: Yes: Normal Bowel Sounds, Soft, Abdomen, Obese, Distention Cardiovascular: Yes: Regular Rate and Rhythm JVD: No Carotid Bruit: No PMI: Non-Displaced Heart Sounds: Yes: S1, S2 Edema: No Peripheral Pulses WNL: Yes Neurological: Yes: Alert, Oriented - Other Data Labs, Other Data: INR, PTT INR 2.14 (0.82-1.09) H D 12/07/16 12:40 nsr lahb, nsttw changes. no change. Echo: Report Reviewed Ejection Fraction %: LVEF > or = 40 % Imaging - Results Chest X-ray: Pending EKG: Report Reviewed (nsr lahb no change) Problem List - Problems (1) Elevated troponin I level Assessment/Plan: He has chronic troponinemia. No evidence of ACS at present, no ecg changes and pain is atypical. Would get GI evaluation and transfuse as needed. Needs diuresis, possible abdominal paracentesis. No plans for inpatient ischemia workup. No need for telemetry at present. fu with primary liver team as outpatient. will follow as needed. Code(s): R74.8 - ABNORMAL LEVELS OF OTHER SERUM ENZYMES
[2016-12-07] MEDS ORDERED: FUROSEMIDE 40 MG/4 ML INJECTABLE VIAL IVPUSH ONE (19:11)
[2016-12-07] MEDS ORDERED: FUROSEMIDE 40 MG/4 ML INJECTABLE VIAL ONE (19:54)
[2016-12-07 23:20] LABS: TROPONIN I 0.06 ng/ml (0.00-0.05)
[2016-12-08] MEDS ORDERED: PT OWN MED DRAWER 7, Y5N ONE (00:15)
[2016-12-08] MEDS ORDERED: INSULIN (NOVOLOG) ASPART 100 UNITS/ML 10ML VIAL ONE ×2 (00:16→21:38)
[2016-12-08] MEDS: MAGNESIUM OXIDE 400 MG TABLET (FP) PO SCH ×3 (00:19→21:43)
[2016-12-08] MEDS: RANOLAZINE E.R. 1,000 MG TABLET (FP) PO SCH ×3 (00:19→21:43)
[2016-12-08] MEDS: ATORVASTATIN CA 10 MG TABLET (FP) PO SCH ×2 (00:20→21:43)
[2016-12-08] MEDS: LACTULOSE 20 GM/30 ML UDC (FOR ORAL USE ONLY) PO SCH ×3 (00:20→21:43)
[2016-12-08] MEDS: INSULIN SLIDING SCALE (NOVOLOG) 1 VIAL SQ SCH ×5 (00:22→21:45)
[2016-12-08] MEDS: INSULIN DETEMIR 100 UNITS/ML MDV SQ SCH (06:12)
[2016-12-08 08:19] LABS: BASOPHIL 0.6 % (0-2.0); EOSINOPHIL 0.1 % (0-4.5); MCH 27.4 pg (25.7-33.7); MEAN CELL VOLUME 82.9 fl (80-96); MEAN PLT VOLUME 8.6 fl (7.5-11.1); NEUTROPHILS 65.5 % (42.8-82.8); PLATELET COUNT 81 K/MM3 (134-434); RDW 17.7 % (11.9-15.9); WHITE BLOOD COUNT 3.8 K/mm3 (4.0-10.0)
--- NOTE | 2016-12-08 08:28 | HP ---
Admitting History and Physical - Admission History of Present Illness: 6M with history of prior [place] s/p stents in 2007, obesity, IDDM, and liver cancer (Dx 1 year ago, s/p embolization on liver transplant list) here today complaining of chest pain. He woke up with chest pain this morning without shortness of breath, dizziness, sweating, nausea or other symptoms. The pain has since resolved. He also is complaining of a productive cough for the past week. He denies fevers and chills. He is also complaining of increased belly size, consistent with ascites he's had before requiring drainage. 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: Yes: Peripheral Neuropathy Cardiovascular: Yes: CAD, HTN, Hyperlipdemia Gastrointestinal: Yes: Esophageal Varices, GI Bleed, Gastritis, Hemorrhoids, Ascites, Other Hepatobiliary: Yes: Cirrhosis (h/o esophageal varices s/p banding, related to HERNANDEZ), Cholelithiasis (s/p lap choly), Other (PORTAL VEIN PARTIAL THROMBOSIS, HCC treated with transhepatic heat ablations at [facility]) Renal/: Yes: Renal Inusuff Heme/Onc: Yes: Anemia, Thrombocytopenia Endocrine: Yes: Diabetes Mellitus - Past Surgical History Past Surgical History: Yes: Hernia Repair, Colonoscopy, Upper Endoscopy, Amputation, Cholecystectomy - Smoking History Smoking history: Never smoked Have you smoked in the past 12 months: No Aproximately how many cigarettes per day: 0 - Alcohol/Substance Use Hx Alcohol Use: No History of Substance Use: reports: None - Social History ADL: Independent 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 [employer] History of Recent Travel: No Home Medications - Allergies Allergies/Adverse Reactions: Allergies Allergy/AdvReac Type Severity Reaction Status Date / Time Iodinated Contrast Media - Allergy Verified 12/07/16 11:47 Oral and [Iodinated Contrast Media - IV Dye] - Home Medications Home Medications: Ambulatory Orders Atorvastatin Ca [Lipitor] 10 mg PO HS 07/15/16 Furosemide [Lasix] 40 mg PO DAILY 07/15/16 Insulin Detemir [Levemir Flextouch] 40 unit SQ DAILY 07/15/16 Multivitamins [Multivit ([facility] Formulary)] 1 tab PO DAILY 07/15/16 Nadolol 20 mg PO DAILY 07/15/16 Nateglinide [Starlix (Nf) -] 60 mg PO BID 07/15/16 Ranolazine [Ranexa] 1,000 mg PO BID 07/15/16 Insulin Lispro [Humalog Kwikpen U-200] 12 unit SQ ASDIR 07/19/16 Metformin HCl 500 mg PO BID 08/09/16 Pantoprazole Sodium [Protonix] 40 mg PO DAILY 10/26/16 Rivaroxaban [Xarelto -] 10 mg PO DAILY 10/26/16 Aspirin [ASA -] 81 mg PO DAILY tab.chew 10/30/16 Lactulose (Oral Use) [Cephulac -] 20 gm PO BID #1 bottle 10/30/16 Magnesium Oxide [Mag-Ox -] 400 mg PO BID #60 tablet 10/30/16 Spironolactone [Aldactone -] 50 mg PO DAILY tablet 10/30/16 Family Disease History - Family Disease History Family Disease History: Diabetes: Brother (alcoholic cirrhosis), Sister, CA: Mother (breast Ca), Other: Father ( from alcohol related complications) Review of Systems - Review of Systems Cardiovascular: reports: Chest Pain, Shortness of Breath Respiratory: reports: SOB, SOB on Exertion Gastrointestinal: reports: Other (distention). denies: Abdominal Pain, Nausea Physical Examination Vital Signs: Vital Signs Temperature 97.6 F 12/08/16 06:00 Pulse Rate 64 12/08/16 06:00 Respiratory Rate 20 12/08/16 06:00 Blood Pressure 128/62 12/08/16 06:00 O2 Sat by Pulse Oximetry (%) 100 12/08/16 05:58 Cardiovascular: Yes: S1, S2 Respiratory: Yes: Regular, CTA Bilaterally Gastrointestinal: Yes: Normal Bowel Sounds, Soft, Ascites, Distention. No: Tenderness Edema: No Neurological: Yes: Alert, Oriented Labs: CBC, BMP 12/08/16 05:40 Problem List - Problems (1) Anemia Assessment/Plan: R/O GI BLEED TRANSFUSE GI CONSULT HOLD AC Code(s): D64.9 - ANEMIA, UNSPECIFIED (2) Elevated troponin I level Assessment/Plan: PROBABLY DEMAND MONITOR CARDIO ON BOARD Code(s): R74.8 - ABNORMAL LEVELS OF OTHER SERUM ENZYMES (3) Abdominal distension Assessment/Plan: GI AND IR CONSULT Code(s): R14.0 - ABDOMINAL DISTENSION (GASEOUS) (4) Ascites Assessment/Plan: GI AND IR CONSULT Code(s): R18.8 - OTHER ASCITES Qualifiers: Ascites type: other type Qualified Code(s): R18.8 - Other ascites (5) Chest pain Assessment/Plan: RESOLVED Code(s): R07.9 - CHEST PAIN, UNSPECIFIED Qualifiers: Chest pain type: pleurodynia Qualified Code(s): R07.81 - Pleurodynia (6) Type 2 diabetes mellitus with diabetic neuropathy, unspecified Assessment/Plan: BGM ENDO Code(s): E11.40 - TYPE 2 DIABETES MELLITUS WITH DIABETIC NEUROPATHY, UNSP (7) Portal vein thrombosis Assessment/Plan: HOLD XARELTO GI Code(s): I81 - PORTAL VEIN THROMBOSIS (8) CAD (coronary artery disease) Assessment/Plan: HOLD ASA SAME MEDS Code(s): I25.10 - ATHSCL HEART DISEASE OF [place] CORONARY ARTERY W/O ANG PCTRS
[2016-12-08] MEDS ORDERED: FUROSEMIDE 40 MG/4 ML INJECTABLE VIAL IVPUSH SCH (08:32)
[2016-12-08 09:14] LABS: ALBUMIN 2.6 g/dl (3.4-5.0); ALK PHOS 105 U/L (45-117); ANION GAP 11 (8-16); BILIRUBIN,TOTAL 1.6 mg/dL (0.2-1.0); CALCIUM 8.7 mg/dL (8.5-10.1); CO2 25 mmol/L (21-32); CREATININE 1.3 mg/dL (0.7-1.3); GLUCOSE,RANDOM 239 mg/dL (74-106); SGOT/AST 29 U/L (15-37); SGPT/ALT 25 U/L (12-78); TOT PROT 6.4 g/dl (6.4-8.2); TROPONIN I 0.06 ng/ml (0.00-0.05)
[2016-12-08] MEDS ORDERED: SPIRONOLACTONE 25 MG TABLET (FP) PO SCH (10:00)
[2016-12-08] MEDS ORDERED: INSULIN DETEMIR 40 UNIT SQ SCH (10:00)
[2016-12-08] MEDS: NADOLOL 20 MG TABLET (FP) PO SCH (10:09)
[2016-12-08] MEDS: PANTOPRAZOLE 40 MG TABLET (FP) PO SCH (10:09)
--- NOTE | 2016-12-08 13:00 | EKG ---
Test Reason : Blood Pressure : / mmHG Vent. Rate : 057 BPM Atrial Rate : 057 BPM P-R Int : 184 ms QRS Dur : 110 ms QT Int : 490 ms P-R-T Axes : 011 -37 009 degrees QTc Int : 476 ms SINUS BRADYCARDIA LEFT AXIS DEVIATION MINIMAL VOLTAGE CRITERIA FOR LVH, MAY BE NORMAL VARIANT ABNORMAL ECG WHEN COMPARED WITH ECG OF 07-DEC-2016 11:52, NO SIGNIFICANT CHANGE WAS FOUND Confirmed by JOSE ALFREDO SÁNCHEZ, KRISTINA ([id number]) on 12/08/2016 1:00:32 PM Referred By: Rimma ROSALES Confirmed By:KRISTINA VELIZ MD
--- NOTE | 2016-12-08 19:09 | CON.GI ---
Consult Consult Specialty:: Gastroenterology Reason for Consultation:: ascites, anemia - History of Present Illness Chief Complaint: chest pain History of Present Illness: This is a 56-year-old male with a history of cirrhosis from HERNANDEZ and a history of hepatocellular carcinoma status post treatment with direct chemoembolization who complains of chest pain which is short-lived. Came to the emergency room for evaluation. He was seen by cardiology. He had similar chest pains in the past. He has a history of MT in the past. According to the [facility] retail branch manager he has mild chronic elevations in his troponins. He has had a recent stress test and prior catheterization which according to the patient and retail branch manager were normal. Patient is on the liver transplant list at [facility]. He recently saw his transplant blood bank worker, Dr. Rivera, last week. He states bloods were drawn. At that time he did not complete complain of abdominal discomfort. Currently he has no abdominal pain. He does state his abdomen has been increasing in size. And it is uncomfortable when he is in bed secondary to large size and moving around somewhat difficult. He has no abdominal pain no rectal bleeding no hematemesis no melena. He was at [facility] a couple of months ago for paracentesis. He has had no fever. He is on diuretics. According to the chart he takes Aldactone 50 mg a day and Lasix 40 mg. Logan is notorious for noncompliance and poor understanding of his disease and medications. He also has a history of portal vein thrombosis secondary to hepatocellular cancer and is currently on an aspirin and Xarelto. He has large gastric varices which were banded a couple of months ago without complication. 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 COORDINATION AND PRODUCTION HEAD: Yes: Peripheral Neuropathy Cardio/Vascular: Yes: CAD, HTN, Hyperlipdemia Gastrointestinal: Yes: Esophageal Varices, GI Bleed, Gastritis, Hemorrhoids, Ascites, Other Hepatobiliary: Yes: Cirrhosis (h/o esophageal varices s/p banding, related to HERNANDEZ), Cholelithiasis (s/p lap choly), Other (PORTAL VEIN PARTIAL THROMBOSIS, HCC treated with transhepatic heat ablations at [facility]) Renal/: Yes: Renal Inusuff Endocrine: Yes: Diabetes Mellitus - Past Surgical History Past Surgical History: Yes: Hernia Repair, Colonoscopy, Upper Endoscopy, Amputation, Cholecystectomy - Alcohol/Substance Use Hx Alcohol Use: No History of Substance Use: reports: None - Smoking History Smoking history: Never smoked Have you smoked in the past 12 months: No Aproximately how many cigarettes per day: 0 - Social History Usual Living Arrangement: With Spouse ADL: Independent 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 [email or web address] History of Recent Travel: No Home Medications - Allergies Allergies/Adverse Reactions: Allergies Allergy/AdvReac Type Severity Reaction Status Date / Time Iodinated Contrast Media - Allergy Verified 12/07/16 11:47 Oral and [Iodinated Contrast Media - IV Dye] - Home Medications Home Medications: Ambulatory Orders Atorvastatin Ca [Lipitor] 10 mg PO HS 07/15/16 Furosemide [Lasix] 40 mg PO DAILY 07/15/16 Insulin Detemir [Levemir Flextouch] 40 unit SQ DAILY 07/15/16 Multivitamins [Multivit ([facility] Formulary)] 1 tab PO DAILY 07/15/16 Nadolol 20 mg PO DAILY 07/15/16 Nateglinide [Starlix (Nf) -] 60 mg PO BID 07/15/16 Ranolazine [Ranexa] 1,000 mg PO BID 07/15/16 Insulin Lispro [Humalog Kwikpen U-200] 12 unit SQ ASDIR 07/19/16 Metformin HCl 500 mg PO BID 08/09/16 Pantoprazole Sodium [Protonix] 40 mg PO DAILY 10/26/16 Rivaroxaban [Xarelto -] 10 mg PO DAILY 10/26/16 Aspirin [ASA -] 81 mg PO DAILY tab.chew 10/30/16 Lactulose (Oral Use) [Cephulac -] 20 gm PO BID #1 bottle 10/30/16 Magnesium Oxide [Mag-Ox -] 400 mg PO BID #60 tablet 10/30/16 Spironolactone [Aldactone -] 50 mg PO DAILY tablet 10/30/16 Family Disease History - Family Disease History Family Disease History: Diabetes: Brother (alcoholic cirrhosis), Sister, CA: Mother (breast Ca), Other: Father ( from alcohol related complications) Review of Systems - Review of Systems Constitutional: reports: Loss of Appetite, Weakness Eyes: reports: No Symptoms HENT: reports: No Symptoms Neck: reports: No Symptoms Cardiovascular: reports: Chest Pain, Shortness of Breath Respiratory: reports: SOB Gastrointestinal: reports: Other ( Increased abdominal girth) Genitourinary: reports: No Symptoms Musculoskeletal: reports: No Symptoms Neurological: reports: No Symptoms Endocrine: reports: No Symptoms Physical Exam-GI Vital Signs: Vital Signs Temperature 98.0 F 12/08/16 14:00 Pulse Rate 67 12/08/16 14:00 Respiratory Rate 18 12/08/16 14:00 Blood Pressure 115/43 12/08/16 14:00 O2 Sat by Pulse Oximetry (%) 100 12/08/16 09:00 Constitutional: Yes: Obese Eyes: Yes: Conjunctiva Clear HENT: Yes: Normocephalic Neck: Yes: Supple Cardiovascular: Yes: Regular Rate and Rhythm Respiratory: Yes: Regular Gastrointestinal Inspection: Yes: Ascites ...Auscultate: Yes: Normoactive Bowel Sounds ...Palpate: Yes: Soft, Other ( nontender) ...Percussion: Yes: Fluid Wave Extremities: Yes: WNL Edema: Yes Neurological: Yes: Alert, Oriented Labs: CBC, BMP 12/08/16 05:40 12/08/16 05:40 INR, PTT INR 2.14 (0.82-1.09) H D 12/07/16 12:40 Laboratory Tests 12/07/16 12/07/16 12/07/16 12:40 12:40 14:07 WBC 4.1 RBC 2.83 L Hgb 7.6 L D Hct 23.5 L D MCV 82.8 MCH 26.7 D MCHC 32.3 RDW 17.8 H Plt Count 93 L D MPV 8.4 Neutrophils % 76.9 Lymphocytes % 15.4 D Monocytes % 6.6 Eosinophils % 0.3 Basophils % 0.8 INR 2.14 H D Sodium Potassium Chloride Carbon Dioxide Anion Gap BUN Creatinine Creat Clearance w eGFR POC Glucometer Random Glucose Ferritin Total Bilirubin AST ALT Alkaline Phosphatase Creatine Kinase Troponin I Total Protein Albumin Stool Occult Blood Negative 12/08/16 12/08/16 12/08/16 05:24 05:40 05:40 WBC 3.8 L RBC 2.90 L Hgb 7.9 L Hct 24.0 L MCV 82.9 MCH 27.4 MCHC 33.0 RDW 17.7 H Plt Count 81 L MPV 8.6 Neutrophils % 65.5 Lymphocytes % 23.5 D Monocytes % 10.3 H Eosinophils % 0.1 Basophils % 0.6 INR Sodium 138 Potassium 4.1 Chloride 102 Carbon Dioxide 25 Anion Gap 11 BUN 20 H Creatinine 1.3 Creat Clearance w eGFR 56.70 POC Glucometer 254 Random Glucose 239 H D Ferritin Total Bilirubin 1.6 H D AST 29 D ALT 25 Alkaline Phosphatase 105 Creatine Kinase 84 Troponin I 0.06 H Total Protein 6.4 Albumin 2.6 L Stool Occult Blood 12/08/16 09:00 WBC RBC Hgb Hct MCV MCH MCHC RDW Plt Count MPV Neutrophils % Lymphocytes % Monocytes % Eosinophils % Basophils % INR Sodium Potassium Chloride Carbon Dioxide Anion Gap BUN Creatinine Creat Clearance w eGFR POC Glucometer Random Glucose Ferritin 10.430 L Total Bilirubin AST ALT Alkaline Phosphatase Creatine Kinase Troponin I Total Protein Albumin Stool Occult Blood Problem List - Problems (1) Ascites Assessment/Plan: I mean I am not sure what diuretics Natacha takes at home. He was to be taking 100 mg of Aldactone in divided doses and Lasix 40 mg. It is obvious that his ascites has worsened since his last discharge. He did see his blood bank worker last week and I will call to get an update on what was discussed at that visit. I have ordered a sonogram to evaluate the amount of ascites. If it needs to be tapped approved perform a paracentesis. I have increased his Aldactone this hospitalization for 50 mg a day to 50 mg twice a day I will continue his Lasix at 40 mg. We will monitor his weight every 3 days and try to allow not more than 1 pound weight loss over each week after paracentesis is performed. Code(s): R18.8 - OTHER ASCITES Qualifiers: Ascites type: other type Qualified Code(s): R18.8 - Other ascites (3) Thrombocytopenia Code(s): D69.6 - THROMBOCYTOPENIA, UNSPECIFIED (4) Portal vein thrombosis Code(s): I81 - PORTAL VEIN THROMBOSIS (5) Portal hypertension with esophageal varices Code(s): K76.6 - PORTAL HYPERTENSION I85.00 - ESOPHAGEAL VARICES WITHOUT BLEEDING (6) Nonalcoholic steatohepatitis (HERNANDEZ) Code(s): K75.81 - NONALCOHOLIC STEATOHEPATITIS (HERNANDEZ) (7) Hepatocellular carcinoma Code(s): C22.0 - LIVER CELL CARCINOMA (8) Elevated troponin I level Code(s): R74.8 - ABNORMAL LEVELS OF OTHER SERUM ENZYMES (9) Abdominal distension Code(s): R14.0 - ABDOMINAL DISTENSION (GASEOUS) (10) Chest pain Code(s): R07.9 - CHEST PAIN, UNSPECIFIED Qualifiers: Chest pain type: pleurodynia Qualified Code(s): R07.81 - Pleurodynia (11) Anemia Assessment/Plan: Part of his anemia is from chronic disease his stool is negative for blood. He has no signs or symptoms of active GI bleeding. Transfuse as needed. Would not allow hemoglobin to go above 10. Code(s): D64.9 - ANEMIA, UNSPECIFIED (12) CAD (coronary artery disease) Code(s): I25.10 - ATHSCL HEART DISEASE OF [place] CORONARY ARTERY W/O ANG PCTRS (13) Diabetes type 2, uncontrolled Code(s): E11.65 - TYPE 2 DIABETES MELLITUS WITH HYPERGLYCEMIA Qualifiers: Diabetes mellitus complication status: with circulatory complication Diabetes mellitus complication detail: with other circulatory complications
[2016-12-08] MEDS: SPIRONOLACTONE 25 MG TABLET (FP) PO SCH (21:43)
--- NOTE | 2016-12-09 00:29 | CONSULT ---
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 Cardio/Vascular: Yes: CAD, HTN, Hyperlipdemia Gastrointestinal: Yes: Esophageal Varices, GI Bleed, Gastritis, Hemorrhoids, Ascites, Other Hepatobiliary: Yes: Cirrhosis (h/o esophageal varices s/p banding, related to HERNANDEZ), Cholelithiasis (s/p lap choly), Other (PORTAL VEIN PARTIAL THROMBOSIS, HCC treated with transhepatic heat ablations at [facility]) Renal/: Yes: Renal Inusuff Endocrine: Yes: Diabetes Mellitus - Past Surgical History Past Surgical History: Yes: Hernia Repair, Colonoscopy, Upper Endoscopy, Amputation, Cholecystectomy - Alcohol/Substance Use Hx Alcohol Use: No History of Substance Use: reports: None - Smoking History Smoking history: Never smoked Have you smoked in the past 12 months: No Aproximately how many cigarettes per day: 0 - Social History Usual Living Arrangement: With Spouse ADL: Independent 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 [employer] History of Recent Travel: No Home Medications - Allergies Allergies/Adverse Reactions: Allergies Allergy/AdvReac Type Severity Reaction Status Date / Time Iodinated Contrast Media - Allergy Verified 12/07/16 11:47 Oral and [Iodinated Contrast Media - IV Dye] - Home Medications Home Medications: Ambulatory Orders Atorvastatin Ca [Lipitor] 10 mg PO HS 07/15/16 Furosemide [Lasix] 40 mg PO DAILY 07/15/16 Insulin Detemir [Levemir Flextouch] 40 unit SQ DAILY 07/15/16 Multivitamins [Multivit ([facility] Formulary)] 1 tab PO DAILY 07/15/16 Nadolol 20 mg PO DAILY 07/15/16 Nateglinide [Starlix (Nf) -] 60 mg PO BID 07/15/16 Ranolazine [Ranexa] 1,000 mg PO BID 07/15/16 Insulin Lispro [Humalog Kwikpen U-200] 12 unit SQ ASDIR 07/19/16 Metformin HCl 500 mg PO BID 08/09/16 Pantoprazole Sodium [Protonix] 40 mg PO DAILY 10/26/16 Rivaroxaban [Xarelto -] 10 mg PO DAILY 10/26/16 Aspirin [ASA -] 81 mg PO DAILY tab.chew 10/30/16 Lactulose (Oral Use) [Cephulac -] 20 gm PO BID #1 bottle 10/30/16 Magnesium Oxide [Mag-Ox -] 400 mg PO BID #60 tablet 10/30/16 Spironolactone [Aldactone -] 50 mg PO DAILY tablet 10/30/16 Family Disease History - Family Disease History Family Disease History: Diabetes: Brother (alcoholic cirrhosis), Sister, CA: Mother (breast Ca), Other: Father ( from alcohol related complications) Review of Systems - Review of Systems Constitutional: reports: Lethargy, Loss of Appetite, Weakness Eyes: reports: No Symptoms HENT: reports: Difficult Swallowing Neck: reports: Decreased ROM Cardiovascular: reports: Palpitations, Shortness of Breath Respiratory: reports: Exercise Intolerance, SOB, SOB on Exertion Gastrointestinal: reports: Bloating, Nausea Genitourinary: reports: No Symptoms Breasts: reports: No Symptoms Reported Musculoskeletal: reports: Back Pain, Decreased ROM, Extremity Pain, Joint Swelling, Muscle Pain, Muscle Cramps, Muscle Weakness Integumentary: reports: No Symptoms Neurological: reports: Confusion, Incoordination, Numbness Physical Exam Vital Signs: Vital Signs Temperature 98.3 F 12/08/16 18:00 Pulse Rate 46 L 12/08/16 18:00 Respiratory Rate 18 12/08/16 18:00 Blood Pressure 128/68 12/08/16 18:00 O2 Sat by Pulse Oximetry (%) 100 12/08/16 09:00 Constitutional: Yes: Anxious, Mild Distress Eyes: Yes: EOM Intact HENT: Yes: Normocephalic Neck: Yes: Trachea Midline Cardiovascular: Yes: Regular Rate and Rhythm Respiratory: Yes: SOB, Tachypnea Gastrointestinal: Yes: Abdomen, Obese, Ascites, Hypoactive Bowel Sounds ...Rectal Exam: Yes: Deferred Renal/: Yes: WNL Breast(s): Yes: Gynecomastia Musculoskeletal: Yes: Muscle Weakness Extremities: Yes: WNL Edema: No Neurological: Yes: Alert, Oriented Psychiatric: Yes: Alert, Oriented Labs: CBC, BMP 12/08/16 05:40 12/08/16 05:40 Problem List - Problems (1) Abdominal distension Code(s): R14.0 - ABDOMINAL DISTENSION (GASEOUS) (2) Ascites Code(s): R18.8 - OTHER ASCITES Qualifiers: Ascites type: other type Qualified Code(s): R18.8 - Other ascites (3) Bradycardia Code(s): R00.1 - BRADYCARDIA, UNSPECIFIED (4) CVA (cerebral infarction) Code(s): I63.9 - CEREBRAL INFARCTION, UNSPECIFIED (5) Diabetes mellitus, insulin dependent (IDDM), uncontrolled Code(s): E10.65 - TYPE 1 DIABETES MELLITUS WITH HYPERGLYCEMIA Assessment/Plan Current Active Problems Elevated troponin I level (Acute) iddm uncontrolled ascites hepatic encephalopathy hyperglycemia Abnormal Lab Results 12/07/16 12/08/16 12/08/16 15:06 05:40 05:40 WBC 3.8 L RBC 2.90 L Hgb 7.9 L Hct 24.0 L RDW 17.7 H Plt Count 81 L Monocytes % 10.3 H BUN 20 H Random Glucose 239 H D Ferritin Total Bilirubin 1.6 H D Troponin I 0.06 H Albumin 2.6 L Crossmatch See Detail 12/08/16 09:00 WBC RBC Hgb Hct RDW Plt Count Monocytes % BUN Random Glucose Ferritin 10.430 L Total Bilirubin Troponin I Albumin Crossmatch Laboratory Results - last 24 hr 12/07/16 12/08/16 12/08/16 15:06 05:24 05:40 WBC 3.8 L RBC 2.90 L Hgb 7.9 L Hct 24.0 L MCV 82.9 MCH 27.4 MCHC 33.0 RDW 17.7 H Plt Count 81 L MPV 8.6 Neutrophils % 65.5 Lymphocytes % 23.5 D Monocytes % 10.3 H Eosinophils % 0.1 Basophils % 0.6 Sodium Potassium Chloride Carbon Dioxide Anion Gap BUN Creatinine Creat Clearance w eGFR POC Glucometer 254 Random Glucose Calcium Ferritin Total Bilirubin AST ALT Alkaline Phosphatase Creatine Kinase Troponin I Total Protein Albumin Blood Type A POSITIVE Antibody Screen Negative Crossmatch See Detail 12/08/16 12/08/16 12/08/16 05:40 09:00 12:50 WBC RBC Hgb Hct MCV MCH MCHC RDW Plt Count MPV Neutrophils % Lymphocytes % Monocytes % Eosinophils % Basophils % Sodium 138 Potassium 4.1 Chloride 102 Carbon Dioxide 25 Anion Gap 11 BUN 20 H Creatinine 1.3 Creat Clearance w eGFR 56.70 POC Glucometer 315 Random Glucose 239 H D Calcium 8.7 Ferritin 10.430 L Total Bilirubin 1.6 H D AST 29 D ALT 25 Alkaline Phosphatase 105 Creatine Kinase 84 Troponin I 0.06 H Total Protein 6.4 Albumin 2.6 L Blood Type Antibody Screen Crossmatch 12/08/16 12/08/16 17:06 21:44 WBC RBC Hgb Hct MCV MCH MCHC RDW Plt Count MPV Neutrophils % Lymphocytes % Monocytes % Eosinophils % Basophils % Sodium Potassium Chloride Carbon Dioxide Anion Gap BUN Creatinine Creat Clearance w eGFR POC Glucometer 320 331 Random Glucose Calcium Ferritin Total Bilirubin AST ALT Alkaline Phosphatase Creatine Kinase Troponin I Total Protein Albumin Blood Type Antibody Screen Crossmatch Laboratory Tests 04/06/16 04/06/16 04/06/16 09:00 11:39 16:03 Potassium 4.5 Chloride 100 Carbon Dioxide 25 Anion Gap 7 L BUN 24 H Creatinine 1.5 H Creat Clearance w eGFR 48.07 Random Glucose 349 H* POC Glucometer 327 383 04/06/16 12/07/16 12/08/16 23:42 23:57 05:24 Potassium Chloride Carbon Dioxide Anion Gap BUN Creatinine Creat Clearance w eGFR Random Glucose POC Glucometer 295 308 254 12/08/16 12/08/16 12/08/16 12:50 17:06 21:44 Potassium Chloride Carbon Dioxide Anion Gap BUN Creatinine Creat Clearance w eGFR Random Glucose POC Glucometer 315 320 331 plan: bgm qid novolog insulin insulin resistant likely high sugar levemir 40 units am levemir 20 units hs
[2016-12-09 06:06] LABS: SERUM IRON 38 ug/dL (38-169); TOTAL IRON BINDING CAPACITY 262 ug/dL (250-450); UIBC 224 ug/dL (111-343)
[2016-12-09] MEDS: INSULIN SLIDING SCALE (NOVOLOG) 1 VIAL SQ SCH ×4 (07:39→21:44)
[2016-12-09 08:13] LABS: MCHC 33.1 g/dl (32.0-35.9); MEAN CELL VOLUME 81.6 fl (80-96); MEAN PLT VOLUME 8.1 fl (7.5-11.1); PLATELET COUNT 77 K/MM3 (134-434); RDW 17.7 % (11.9-15.9); WHITE BLOOD COUNT 4.3 K/mm3 (4.0-10.0)
--- NOTE | 2016-12-09 08:38 | PN ---
Progress Note, Physician History of Present Illness: feels better no cp - Current Medication List Current Medications: Active Medications Atorvastatin Calcium (Lipitor -) 10 mg PO HS [facility] Last Admin: 12/08/16 21:43 Dose: 10 mg Furosemide (Lasix Injection -) 40 mg IVPUSH DAILY [facility] Insulin Aspart (Novolog Vial Sliding Scale -) 1 vial SQ ACHS [facility] PRN Reason: Protocol Insulin Detemir (Levemir Vial) 40 units SQ AM [facility] Last Admin: 12/08/16 06:12 Dose: 40 units Insulin Detemir (Levemir Vial) 20 units SQ HS [facility] Lactulose (Cephulac (Oral Use)) 20 gm PO BID [facility] Last Admin: 12/08/16 21:43 Dose: Not Given Magnesium Oxide (Mag-Ox -) 400 mg PO BID [facility] Last Admin: 12/08/16 21:43 Dose: 400 mg Nadolol (Corgard -) 20 mg PO DAILY [facility] Last Admin: 12/08/16 10:09 Dose: 20 mg Pantoprazole Sodium (Protonix -) 40 mg PO DAILY [facility] Last Admin: 12/08/16 10:09 Dose: 40 mg Ranolazine (Ranexa -) 1,000 mg PO BID [facility] Last Admin: 12/08/16 21:43 Dose: 1,000 mg Spironolactone (Aldactone -) 50 mg PO BID [facility] Last Admin: 12/08/16 21:43 Dose: 50 mg - Objective Vital Signs: Vital Signs Temperature 97.0 F L 12/09/16 06:00 Pulse Rate 56 L 12/09/16 06:00 Respiratory Rate 20 12/09/16 06:00 Blood Pressure 118/70 12/09/16 06:00 O2 Sat by Pulse Oximetry (%) 100 12/08/16 21:00 Cardiovascular: Yes: Regular Rate and Rhythm Respiratory: Yes: Regular, CTA Bilaterally Gastrointestinal: Yes: Normal Bowel Sounds, Soft, Distention Labs: CBC, BMP 12/09/16 06:00 INR, PTT INR 2.14 (0.82-1.09) H D 12/07/16 12:40 Problem List - Problems (1) Anemia Assessment/Plan: R/O GI BLEED TRANSFUSE--PER RBC GI CONSULT NOTED--W/U HOLD AC Code(s): D64.9 - ANEMIA, UNSPECIFIED (2) Elevated troponin I level Assessment/Plan: PROBABLY DEMAND MONITOR CARDIO [facility] Tests 12/07/16 12/08/16 22:38 05:40 Troponin I 0.06 H 0.06 H Code(s): R74.8 - ABNORMAL LEVELS OF OTHER SERUM ENZYMES (3) Abdominal distension Assessment/Plan: GI AND IR CONSULT Code(s): R14.0 - ABDOMINAL DISTENSION (GASEOUS) (4) Ascites Assessment/Plan: GI AND IR CONSULT Code(s): R18.8 - OTHER ASCITES Qualifiers: Ascites type: other type Qualified Code(s): R18.8 - Other ascites (5) Chest pain Assessment/Plan: RESOLVED Code(s): R07.9 - CHEST PAIN, UNSPECIFIED Qualifiers: Chest pain type: pleurodynia Qualified Code(s): R07.81 - Pleurodynia (6) Type 2 diabetes mellitus with diabetic neuropathy, unspecified Assessment/Plan: BGM ENDO Code(s): E11.40 - TYPE 2 DIABETES MELLITUS WITH DIABETIC NEUROPATHY, UNSP (7) Portal vein thrombosis Assessment/Plan: HOLD XARELTO GI Code(s): I81 - PORTAL VEIN THROMBOSIS (8) CAD (coronary artery disease) Assessment/Plan: HOLD ASA SAME MEDS Code(s): I25.10 - ATHSCL HEART DISEASE OF [place] CORONARY ARTERY W/O ANG PCTRS
[2016-12-09 08:45] LABS: SGOT/AST 26 U/L (15-37); SGPT/ALT 22 U/L (12-78)
[2016-12-09 09:17] LABS: ALBUMIN 2.5 g/dl (3.4-5.0); ALK PHOS 97 U/L (45-117); ANION GAP 11 (8-16); BILIRUBIN,TOTAL 1.5 mg/dL (0.2-1.0); CALCIUM 8.6 mg/dL (8.5-10.1); CO2 25 mmol/L (21-32); CREATININE 1.1 mg/dL (0.7-1.3); GLUCOSE,RANDOM 203 mg/dL (74-106); TOT PROT 6.2 g/dl (6.4-8.2)
[2016-12-09] MEDS: INSULIN DETEMIR 100 UNITS/ML MDV SQ SCH ×2 (10:45→21:45)
[2016-12-09] MEDS: SPIRONOLACTONE 25 MG TABLET (FP) PO SCH ×2 (10:47→21:43)
[2016-12-09] MEDS: LACTULOSE 20 GM/30 ML UDC (FOR ORAL USE ONLY) PO SCH ×2 (10:48→21:44)
[2016-12-09] MEDS: FUROSEMIDE 40 MG/4 ML INJECTABLE VIAL IVPUSH SCH (10:48)
[2016-12-09] MEDS: NADOLOL 20 MG TABLET (FP) PO SCH (10:48)
[2016-12-09] MEDS: MAGNESIUM OXIDE 400 MG TABLET (FP) PO SCH ×2 (10:48→21:45)
[2016-12-09] MEDS: RANOLAZINE E.R. 1,000 MG TABLET (FP) PO SCH ×2 (10:49→21:45)
[2016-12-09] MEDS: PANTOPRAZOLE 40 MG TABLET (FP) PO SCH (10:49)
[2016-12-09] MEDS ORDERED: INSULIN (NOVOLOG) ASPART 100 UNITS/ML 10ML VIAL ONE ×3 (11:03→21:20)
[2016-12-09 11:08] LABS: INR 1.35 (0.82-1.09); PROTHROMBIN TIME (PATIENT) 14.9 SEC (9.98-11.88)
[2016-12-09 19:47] LABS: PERITONEAL FLUID LYMPHOCYTE 51 %; PERITONEAL FLUID MONOCYTE 5 %; PERITONEAL FLUID NEUTROPHIL 1 %
[2016-12-09 19:48] LABS: PERITONEAL FLUID MACROPHAGE 13 %; PERITONEAL FLUID MESOTHELIAL 35 %
--- NOTE | 2016-12-09 19:53 | PN ---
GI Progress Note Subjective: GASTROENTEROLOGY PARACENTESIS PERFORMED TODAY ALDACTONE UP TO 100 MG PO DAILY AND LASIX 40MG Q DAY AMT OF FLUID REMOVED UNKNOWN AND CELL COUNT PENDING HGB IMPROVED - Objective Vital Signs: Vital Signs Temperature 97.9 F 12/09/16 17:20 Pulse Rate 52 L 12/09/16 17:20 Respiratory Rate 20 12/09/16 17:20 Blood Pressure 140/68 12/09/16 17:20 O2 Sat by Pulse Oximetry (%) 99 12/09/16 09:00 Constitutional: No Distress Eyes: Yes: Conjunctiva Clear Cardiovascular: Yes: Regular Rate and Rhythm Respiratory: Yes: Regular ...Auscultate: Yes: Normoactive Bowel Sounds ...Palpate: Yes: Soft ...Percussion: Yes: Other (LESS DISTESION) Labs: CBC, BMP 12/09/16 06:00 12/09/16 06:00 INR, PTT INR 1.35 (0.82-1.09) H D 12/09/16 10:15 Problem List - Problems (1) Ascites Assessment/Plan: CONTINUE ALDACTONE 50 MG PO BID AND LASIX 40 MG PO QDAY (D/C ivp IN AM) WEIGHT EVERYOTHER DAY FOLLOW SODIUM/K+ CK CELL COUNT FROM GI POINT OF VIEW DISCHARGE SOON EKTA CHU MD Code(s): R18.8 - OTHER ASCITES Qualifiers: Ascites type: other type Qualified Code(s): R18.8 - Other ascites (3) Thrombocytopenia Code(s): D69.6 - THROMBOCYTOPENIA, UNSPECIFIED (4) Portal vein thrombosis Code(s): I81 - PORTAL VEIN THROMBOSIS (5) Portal hypertension with esophageal varices Code(s): K76.6 - PORTAL HYPERTENSION I85.00 - ESOPHAGEAL VARICES WITHOUT BLEEDING (6) Nonalcoholic steatohepatitis (HERNANDEZ) Code(s): K75.81 - NONALCOHOLIC STEATOHEPATITIS (HERNANDEZ) (7) Hepatocellular carcinoma Code(s): C22.0 - LIVER CELL CARCINOMA (8) Elevated troponin I level Code(s): R74.8 - ABNORMAL LEVELS OF OTHER SERUM ENZYMES (9) Abdominal distension Code(s): R14.0 - ABDOMINAL DISTENSION (GASEOUS) (10) Chest pain Code(s): R07.9 - CHEST PAIN, UNSPECIFIED Qualifiers: Chest pain type: pleurodynia Qualified Code(s): R07.81 - Pleurodynia (11) Anemia Code(s): D64.9 - ANEMIA, UNSPECIFIED (12) CAD (coronary artery disease) Code(s): I25.10 - ATHSCL HEART DISEASE OF [place] CORONARY ARTERY W/O ANG PCTRS (13) Diabetes type 2, uncontrolled Code(s): E11.65 - TYPE 2 DIABETES MELLITUS WITH HYPERGLYCEMIA Qualifiers: Diabetes mellitus complication status: with circulatory complication Diabetes mellitus complication detail: with other circulatory complications
[2016-12-09] MEDS: ATORVASTATIN CA 10 MG TABLET (FP) PO SCH (21:45)
[2016-12-10] MEDS ORDERED: guaiFENesin 200 MG/10 ML 10 ML UNIT-DOSE CUPS PO PRN (01:32)
[2016-12-10 07:33] LABS: BASOPHIL 0.5 % (0-2.0); EOSINOPHIL 0.2 % (0-4.5); MCH 27.2 pg (25.7-33.7); MCHC 33.4 g/dl (32.0-35.9); MEAN CELL VOLUME 81.4 fl (80-96); MEAN PLT VOLUME 8.5 fl (7.5-11.1); NEUTROPHILS 70.7 % (42.8-82.8); PLATELET COUNT 75 K/MM3 (134-434); RDW 17.9 % (11.9-15.9); WHITE BLOOD COUNT 4.8 K/mm3 (4.0-10.0)
[2016-12-10] MEDS ORDERED: INSULIN (NOVOLOG) ASPART 100 UNITS/ML 10ML VIAL ONE ×2 (08:15→20:55)
[2016-12-10 08:27] LABS: ALBUMIN 2.5 g/dl (3.4-5.0); ANION GAP 8 (8-16); CALCIUM 8.4 mg/dL (8.5-10.1); CO2 27 mmol/L (21-32); GLUCOSE,RANDOM 184 mg/dL (74-106); SGOT/AST 28 U/L (15-37); SGPT/ALT 24 U/L (12-78)
[2016-12-10 08:28] LABS: ALK PHOS 106 U/L (45-117); BILIRUBIN,TOTAL 1.6 mg/dL (0.2-1.0); TOT PROT 6.2 g/dl (6.4-8.2)
--- NOTE | 2016-12-10 08:37 | PN ---
Progress Note, Physician History of Present Illness: C/O COUGH NO CP S/P PARACENTESIS - Current Medication List Current Medications: Active Medications Albuterol/Ipratropium (Duoneb -) 1 amp NEB QIDR [facility] Atorvastatin Calcium (Lipitor -) 10 mg PO HS [facility] Last Admin: 12/09/16 21:45 Dose: 10 mg Furosemide (Lasix Injection -) 40 mg IVPUSH DAILY [facility] Last Admin: 12/09/16 10:48 Dose: 40 mg Guaifenesin (Robitussin -) 10 ml PO Q6H PRN Insulin Aspart (Novolog Vial Sliding Scale -) 1 vial SQ ACHS [facility] PRN Reason: Protocol Last Admin: 12/09/16 21:44 Dose: 9 units Insulin Detemir (Levemir Vial) 40 units SQ AM [facility] Last Admin: 12/09/16 10:45 Dose: 40 units Insulin Detemir (Levemir Vial) 20 units SQ HS [facility] Last Admin: 12/09/16 21:45 Dose: 20 units Lactulose (Cephulac (Oral Use)) 20 gm PO BID [facility] Last Admin: 12/09/16 21:44 Dose: Not Given Magnesium Oxide (Mag-Ox -) 400 mg PO BID [facility] Last Admin: 12/09/16 21:45 Dose: 400 mg Nadolol (Corgard -) 20 mg PO DAILY [facility] Last Admin: 12/09/16 10:48 Dose: 20 mg Pantoprazole Sodium (Protonix -) 40 mg PO DAILY [facility] Last Admin: 12/09/16 10:49 Dose: 40 mg Ranolazine (Ranexa -) 1,000 mg PO BID [facility] Last Admin: 12/09/16 21:45 Dose: 1,000 mg Spironolactone (Aldactone -) 50 mg PO BID [facility] Last Admin: 12/09/16 21:43 Dose: 50 mg - Objective Vital Signs: Vital Signs Temperature 98.0 F 12/10/16 06:00 Pulse Rate 50 L 12/10/16 06:00 Respiratory Rate 20 12/10/16 06:00 Blood Pressure 125/68 12/10/16 06:00 O2 Sat by Pulse Oximetry (%) 98 12/09/16 21:00 Cardiovascular: Yes: S1, S2 Respiratory: Yes: Diminished, Rhonchi Gastrointestinal: Yes: Normal Bowel Sounds, Soft Labs: CBC, BMP 12/10/16 05:35 12/10/16 05:35 INR, PTT INR 1.35 (0.82-1.09) H D 12/09/16 10:15 Problem List - Problems (1) Anemia Assessment/Plan: R/O GI BLEED--GI CONSULT NOTED S/P TRANSFUSION-9.3 RESUME AC IF OK WITH GI Code(s): D64.9 - ANEMIA, UNSPECIFIED (2) Elevated troponin I level Code(s): R74.8 - ABNORMAL LEVELS OF OTHER SERUM ENZYMES (3) Abdominal distension Assessment/Plan: GI AND IR CONSULT Code(s): R14.0 - ABDOMINAL DISTENSION (GASEOUS) (4) Ascites Assessment/Plan: GI AND IR CONSULT Code(s): R18.8 - OTHER ASCITES Qualifiers: Ascites type: other type Qualified Code(s): R18.8 - Other ascites (5) Chest pain Code(s): R07.9 - CHEST PAIN, UNSPECIFIED Qualifiers: Chest pain type: pleurodynia Qualified Code(s): R07.81 - Pleurodynia (6) Type 2 diabetes mellitus with diabetic neuropathy, unspecified Assessment/Plan: BGM ENDO Code(s): E11.40 - TYPE 2 DIABETES MELLITUS WITH DIABETIC NEUROPATHY, UNSP (7) Portal vein thrombosis Assessment/Plan: RESUME XARELTO IF OK WITH GI GI Code(s): I81 - PORTAL VEIN THROMBOSIS (8) CAD (coronary artery disease) Assessment/Plan: HOLD ASA SAME MEDS Code(s): I25.10 - ATHSCL HEART DISEASE OF [place] CORONARY ARTERY W/O ANG PCTRS (9) Cough Assessment/Plan: r/o pna r/o chf continue with lasix cxr pulm consult Code(s): R05 - COUGH
[2016-12-10] MEDS: INSULIN SLIDING SCALE (NOVOLOG) 1 VIAL SQ SCH ×4 (09:04→21:08)
[2016-12-10] MEDS: INSULIN DETEMIR 100 UNITS/ML MDV SQ SCH ×2 (09:04→21:08)
--- NOTE | 2016-12-10 10:55 | CON.PULM ---
Consult Consult Specialty:: PULMONARY Referred by:: TRISH Reason for Consultation:: COUGH - History of Present Illness Chief Complaint: COUGH History of Present Illness: Patient is a 56M with history of prior [place] s/p stents in 2007, obesity, IDDM, and liver cancer (Dx 1 year ago, s/p embolization on liver transplant list) here today complaining of chest pain and chronic cough. Cough is productive of clear sputum no hemoptysis and states he never smoked.. He woke up with chest pain this morning without shortness of breath, dizziness, sweating, nausea or other symptoms. The pain has since resolved. He denies fevers and chills. He has had a paracentesis this admission . He denies abdominal pain, diarrhea, constipation, and dysuria. 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 Cardio/Vascular: Yes: CAD, HTN, Hyperlipdemia Gastrointestinal: Yes: Ascites, Esophageal Varices, Gastritis, GI Bleed, Hemorrhoids, Other Hepatobiliary: Yes: Cirrhosis (h/o esophageal varices s/p banding, related to HERNANDEZ), Cholelithiasis (s/p lap choly), Other (PORTAL VEIN PARTIAL THROMBOSIS, HCC treated with transhepatic heat ablations at [facility]) Renal/: Yes: Renal Inusuff Endocrine: Yes: Diabetes Mellitus - Past Surgical History Past Surgical History: Yes: Hernia Repair, Colonoscopy, Upper Endoscopy, Amputation, Cholecystectomy - Alcohol/Substance Use Hx Alcohol Use: No History of Substance Use: reports: None - Smoking History Smoking history: Never smoked Have you smoked in the past 12 months: No Aproximately how many cigarettes per day: 0 - Social History Usual Living Arrangement: With Spouse ADL: Independent 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 [employer] History of Recent Travel: No Home Medications - Allergies Allergies/Adverse Reactions: Allergies Allergy/AdvReac Type Severity Reaction Status Date / Time Iodinated Contrast Media - Allergy Verified 12/07/16 11:47 Oral and [Iodinated Contrast Media - IV Dye] - Home Medications Home Medications: Ambulatory Orders Atorvastatin Ca [Lipitor] 10 mg PO HS 07/15/16 Furosemide [Lasix] 40 mg PO DAILY 07/15/16 Insulin Detemir [Levemir Flextouch] 40 unit SQ DAILY 07/15/16 Multivitamins [Multivit ([facility] Formulary)] 1 tab PO DAILY 07/15/16 Nadolol 20 mg PO DAILY 07/15/16 Nateglinide [Starlix (Nf) -] 60 mg PO BID 07/15/16 Ranolazine [Ranexa] 1,000 mg PO BID 07/15/16 Insulin Lispro [Humalog Kwikpen U-200] 12 unit SQ ASDIR 07/19/16 Metformin HCl 500 mg PO BID 08/09/16 Pantoprazole Sodium [Protonix] 40 mg PO DAILY 10/26/16 Rivaroxaban [Xarelto -] 10 mg PO DAILY 10/26/16 Aspirin [ASA -] 81 mg PO DAILY tab.chew 10/30/16 Lactulose (Oral Use) [Cephulac -] 20 gm PO BID #1 bottle 10/30/16 Magnesium Oxide [Mag-Ox -] 400 mg PO BID #60 tablet 10/30/16 Spironolactone [Aldactone -] 50 mg PO DAILY tablet 10/30/16 Family Disease History - Family Disease History Family Disease History: Diabetes: Brother (alcoholic cirrhosis), Sister, CA: Mother (breast Ca), Other: Father ( from alcohol related complications) Review of Systems - Review of Systems Constitutional: denies: Fever Eyes: denies: Blurred Vision HENT: denies: Difficult Swallowing Neck: denies: Decreased ROM Cardiovascular: reports: Chest Pain. denies: Palpitations, Shortness of Breath Respiratory: reports: Cough. denies: Hemoptysis Gastrointestinal: reports: No Symptoms Genitourinary: reports: No Symptoms Physical Exam Vital Sings: Vital Signs Temperature 98 F 12/10/16 09:00 Pulse Rate 52 L 12/10/16 09:00 Respiratory Rate 20 12/10/16 09:00 Blood Pressure 115/56 12/10/16 09:00 O2 Sat by Pulse Oximetry (%) 98 12/10/16 09:00 Constitutional: Yes: Calm Eyes: Yes: EOM Intact HENT: Yes: Normocephalic Neck: Yes: Trachea Midline Cardiovascular: Yes: Regular Rate and Rhythm Respiratory: Yes: CTA Bilaterally Gastrointestinal: Yes: Abdomen, Obese, Ascites Edema: LLE: Trace, RLE: Trace Integumentary: Yes: WNL Neurological: Yes: WNL Psychiatric: Yes: WNL Labs: CBC, BMP 12/10/16 05:35 12/10/16 05:35 rest reviewed Imaging - Results Chest X-ray: Image Reviewed Problem List - Problems (1) Diabetes mellitus, insulin dependent (IDDM), uncontrolled Code(s): E10.65 - TYPE 1 DIABETES MELLITUS WITH HYPERGLYCEMIA (2) Abdominal distension Code(s): R14.0 - ABDOMINAL DISTENSION (GASEOUS) (3) Ascites Code(s): R18.8 - OTHER ASCITES Qualifiers: Ascites type: other type Qualified Code(s): R18.8 - Other ascites Assessment/Plan ONE WEEK OF PRODUCTIVE COUGH/NO FEVER/NO HEMOPTYSIS/NO WHEEZE NO IMPROVEMENT POST PARACENTESIS/NO EVIDENCE OF PLEURAL EFFUSION PATIENT STATES COUGH IS INCREASED WHEN HE IS SUPINE POSSIBLE ETIOLOGIES INCLUDE LARYNGEAL-ESOPHAGEAL REFLUX/POST NASAL DRIP CONTINUE PANTOPRAZOLE WILL ORDER SINUS FILMS CAN CONTINUE COUGH W/U OUTPATIENT Tex VIRK MD
[2016-12-10] MEDS: NADOLOL 20 MG TABLET (FP) PO SCH (10:59)
[2016-12-10] MEDS: MAGNESIUM OXIDE 400 MG TABLET (FP) PO SCH ×2 (10:59→21:08)
[2016-12-10] MEDS: PANTOPRAZOLE 40 MG TABLET (FP) PO SCH (10:59)
[2016-12-10] MEDS: RANOLAZINE E.R. 1,000 MG TABLET (FP) PO SCH ×2 (10:59→21:08)
[2016-12-10] MEDS: FUROSEMIDE 40 MG/4 ML INJECTABLE VIAL IVPUSH SCH (10:59)
[2016-12-10] MEDS: SPIRONOLACTONE 25 MG TABLET (FP) PO SCH ×2 (10:59→21:08)
[2016-12-10] MEDS: LACTULOSE 20 GM/30 ML UDC (FOR ORAL USE ONLY) PO SCH ×2 (11:00→21:08)
[2016-12-10] MEDS: ALBUTEROL SO4 2.5/IPRATROPIUM 0.5 INH SOL 3 ML VIAL.NEB. NEB SCH ×3 (11:13→23:20)
[2016-12-10] MEDS ORDERED: FUROSEMIDE 40 MG/4 ML INJECTABLE VIAL IVPUSH SCH (11:56)
[2016-12-10] MEDS ORDERED: FUROSEMIDE 40 MG/4 ML INJECTABLE VIAL IVPUSH ONE (12:15)
--- NOTE | 2016-12-10 15:35 | PATH ---
Cytology Non-Gynecological Report Patient Name: JAYSON STRAUSS [facility]. Rec. #: [id number] /Age/Gender: 1960 (Age: 56) / M Account: [id number] Location: 4 W TELEMETRY U Taken: 12/09/2016 Received: 12/09/2016 Reported: 12/10/2016 Physicians: Pedrito Villanueva M.D. Specimen(s) Received A: ABDOMINAL FLUID IN 50% ALCOHOL B: ABDOMINAL FLUID FRESH Clinical History Ascites Final Diagnosis A,B. ABDOMINAL FLUID, PARACENTESIS: SATISFACTORY FOR EVALUATION. NO MALIGNANT CELLS IDENTIFIED. REACTIVE MESOTHELIAL CELLS, HISTIOCYTES AND LYMPHOCYTES. Electronically Signed David Martinez M.D. Gross Description A. Received is a 50 cc of yellow fluid in 50% alcohol. One cytofunnel slide and one cell block are made. B. Received is 1000 cc of yellow fluid fresh. One cytofunnel slide and one cell block are made.
[2016-12-10] MEDS: RIVAROXABAN 20 MG TABLET PO SCH (18:14)
--- NOTE | 2016-12-10 18:14 | HOSP ---
Subjective - Review of Symptoms Subjective: Paged by RN due to patient falling. Patient was walking to bathroom with his own walker. He started to walk backwards out of the bathroom and tripped. He landed on his back. RN heard his walker fall and came over to see him. He was on the floor on his side. He was helped back to his bed. Patient denies any headache, dizziness, chest pain, shortness of breath prior to falling. Patient denies loss of consciousness, head trauma, pain s/p falling. Physical Examination Vital Signs: Vital Signs Vitals Temp 98, BP 121/65, HR 70, Resp 20 Constitutional: Yes: Well Nourished, No Distress, Calm Eyes: Yes: WNL, Conjunctiva Clear, EOM Intact HENT: Yes: WNL, Atraumatic, Normocephalic Neck: Yes: WNL, Supple, Trachea Midline Cardiovascular: Yes: WNL, Regular Rate and Rhythm Respiratory: Yes: WNL, Regular, CTA Bilaterally Gastrointestinal: Yes: WNL, Normal Bowel Sounds, Soft Musculoskeletal: Yes: WNL Extremities: Yes: WNL Neurological: Yes: WNL, Alert, Oriented ...Motor Strength: LUE, LLE (5/5 strength at hip, knee. 1/5 strength at ankle ( baseline per pt and nurse)), RUE (5/5 strength bl), RLE (5/5 strength at hip, knee. 1/5 strength at ankle (baseline per pt and nurse)) Psychiatric: Yes: WNL, Alert, Oriented Labs: CBC, BMP 12/10/16 05:35 12/10/16 05:35 Hospitalist Encounter Assessment: 56 year old male s/p fall. Patient denies any pain. Neurological examination is wnl. No arrhythmias noted on telemetry. Vitals Temp 98, BP 121/65, HR 70, Resp 20. No further imaging necessary at this time. Visit type - Emergency Visit Emergency Visit: No - New Patient This patient is new to me today: Yes Date on this admission: 12/10/16 - Critical Care Critical Care patient: No
[2016-12-10] MEDS: ATORVASTATIN CA 10 MG TABLET (FP) PO SCH (21:08)
[2016-12-11] MEDS: INSULIN DETEMIR 100 UNITS/ML MDV SQ SCH (06:31)
[2016-12-11] MEDS: INSULIN SLIDING SCALE (NOVOLOG) 1 VIAL SQ SCH ×2 (06:31→11:36)
[2016-12-11] MEDS: ALBUTEROL SO4 2.5/IPRATROPIUM 0.5 INH SOL 3 ML VIAL.NEB. NEB SCH ×2 (06:40→13:00)
[2016-12-11 07:35] LABS: BASOPHIL 0.6 % (0-2.0); EOSINOPHIL 0.6 % (0-4.5); MCH 27.1 pg (25.7-33.7); MCHC 33.3 g/dl (32.0-35.9); MEAN CELL VOLUME 81.5 fl (80-96); MEAN PLT VOLUME 8.2 fl (7.5-11.1); NEUTROPHILS 66.1 % (42.8-82.8); PLATELET COUNT 74 K/MM3 (134-434); RDW 17.8 % (11.9-15.9)
[2016-12-11 08:05] LABS: ANION GAP 7 (8-16); CALCIUM 8.5 mg/dL (8.5-10.1); CO2 28 mmol/L (21-32); CREATININE 1.2 mg/dL (0.7-1.3); GLUCOSE,RANDOM 143 mg/dL (74-106)
[2016-12-11] MEDS: PANTOPRAZOLE 40 MG TABLET (FP) PO SCH (10:06)
[2016-12-11] MEDS: RANOLAZINE E.R. 1,000 MG TABLET (FP) PO SCH (10:06)
[2016-12-11] MEDS: SPIRONOLACTONE 25 MG TABLET (FP) PO SCH (10:06)
[2016-12-11] MEDS: NADOLOL 20 MG TABLET (FP) PO SCH ×2 (10:07→10:16)
[2016-12-11] MEDS: MAGNESIUM OXIDE 400 MG TABLET (FP) PO SCH (10:07)
[2016-12-11] MEDS: RIVAROXABAN 20 MG TABLET PO SCH (10:07)
[2016-12-11] MEDS: LACTULOSE 20 GM/30 ML UDC (FOR ORAL USE ONLY) PO SCH (10:07)
--- NOTE | 2016-12-11 10:10 | PN ---
Progress Note (short form) - Note Progress Note: PULMONARY LESS COUGH VSS/AFEBRILE ANICTERIC CHEST CLEAR S1S2 OBESE LESS EDEMA LABS/MEDS/NOTES REVIEWED CT CHEST NOTES/SINUS FILMS REVIEWED WE CAN CONTINUE COUGH WORKUP AN OUTPATIENT Tex VIRK MD Problem List - Problems (1) Diabetes mellitus, insulin dependent (IDDM), uncontrolled Code(s): E10.65 - TYPE 1 DIABETES MELLITUS WITH HYPERGLYCEMIA (2) Abdominal distension Code(s): R14.0 - ABDOMINAL DISTENSION (GASEOUS) (3) Ascites Code(s): R18.8 - OTHER ASCITES Qualifiers: Ascites type: other type Qualified Code(s): R18.8 - Other ascites
--- NOTE | 2016-12-11 11:07 | DS ---
Physical Examination Vital Signs: Vital Signs Temperature 98.2 F 12/11/16 06:00 Pulse Rate 49 L 12/11/16 06:00 Respiratory Rate 18 12/11/16 06:00 Blood Pressure 109/49 12/11/16 06:00 O2 Sat by Pulse Oximetry (%) 94 L 12/10/16 20:35 Constitutional: Yes: No Distress Eyes: Yes: WNL HENT: Yes: WNL Neck: Yes: WNL Cardiovascular: Yes: Pulse Irregular Respiratory: Yes: WNL Gastrointestinal: Yes: WNL Musculoskeletal: Yes: Muscle Weakness Extremities: Yes: WNL Edema: No Peripheral Pulses WNL: Yes Integumentary: Yes: Other Wound/Incision: Yes: Other Neurological: Yes: Pre-Existing Deficit, Unsteady Gait, Weakness ...Motor Strength: LLE, RLE Psychiatric: Yes: Other Labs: CBC, BMP 12/11/16 05:35 12/11/16 05:35 Discharge Summary Reason For Visit: ELEVATED TROPONIN Current Active Problems Diabetes mellitus, insulin dependent (IDDM), uncontrolled (Acute) Elevated troponin I level (Acute) Condition: Improved - Instructions Diet, Activity, Other Instructions: see dr duran tuesday 10am Referrals: Roxanne Duran MD [Primary Care Provider] - Disposition: VNS/HOME HEALTH CARE - Home Medications Comprehensive Discharge Medication List: Ambulatory Orders Furosemide [Lasix] 40 mg PO DAILY 07/15/16 Insulin Detemir [Levemir Flextouch] 40 unit SQ DAILY 07/15/16 Multivitamins [Multivit ([facility] Formulary)] 1 tab PO DAILY 07/15/16 Nateglinide [Starlix (Nf) -] 60 mg PO BID 07/15/16 Insulin Lispro [Humalog Kwikpen U-200] 12 unit SQ ASDIR 07/19/16 Metformin HCl 500 mg PO BID 08/09/16 Aspirin [ASA -] 81 mg PO DAILY tab.chew 10/30/16 Lactulose (Oral Use) [Cephulac -] 20 gm PO BID #1 bottle 10/30/16 Spironolactone [Aldactone -] 50 mg PO DAILY tablet 10/30/16 Albuterol 2.5/Ipratropium 0.5 [Duoneb -] 1 amp NEB QIDR #30 amp 12/11/16 Atorvastatin Ca [Lipitor] 10 mg PO HS #30 tab 12/11/16 Insulin (Levemir) [Levemir Vial] 20 units SQ HS ml 12/11/16 Insulin (Levemir) [Levemir Vial] 40 units SQ AM ml 12/11/16 Magnesium Oxide [Mag-Ox -] 400 mg PO BID #60 tablet 12/11/16 Nadolol 20 mg PO DAILY #30 tab 12/11/16 Pantoprazole Sodium [Protonix] 40 mg PO DAILY #30 tab 12/11/16 Ranolazine [Ranexa] 1,000 mg PO BID #60 tab 12/11/16 Rivaroxaban [Xarelto -] 20 mg PO DAILY #30 tablet 12/11/16
[2016-12-11 13:01] VITALS: BP 125/78; PULSE 54; TEMP 98.8
== END 2016-12-11 13:10 | disposition home health service (06) | DRG 811 ==
LOC: JER 11:41 → JERBED 14:16 → J4W 23:34
PROVIDERS: ADMIT Family Medicine; ATTEND Family Medicine
PROC: 30233N1 Transfusion of Nonautologous Red Blood Cells into Peripheral Vein, Percutaneous Approach (ICD-10-PCS; 2016-12-07)
PROC: 0W9G3ZX Drainage of Peritoneal Cavity, Percutaneous Approach, Diagnostic (ICD-10-PCS; principal; 2016-12-09)
DX: D64.9 Anemia, unspecified (principal); I81 Portal vein thrombosis; C22.7 Other specified carcinomas of liver; I85.00 Esophageal varices without bleeding; K76.6 Portal hypertension; R18.8 Other ascites; I25.10 Atherosclerotic heart disease of native coronary artery without angina pectoris; E78.00 Pure hypercholesterolemia, unspecified; E66.8 Other obesity; Z68.35 Body mass index [BMI] 35.0-35.9, adult; K72.90 Hepatic failure, unspecified without coma; K29.60 Other gastritis without bleeding; E11.42 Type 2 diabetes mellitus with diabetic polyneuropathy; K74.60 Unspecified cirrhosis of liver; R74.8 Abnormal levels of other serum enzymes; D69.6 Thrombocytopenia, unspecified; E11.65 Type 2 diabetes mellitus with hyperglycemia; R14.0 Abdominal distension (gaseous); K75.81 Nonalcoholic steatohepatitis (NASH); R07.81 Pleurodynia; R05 Cough; Z95.5 Presence of coronary angioplasty implant and graft; Z79.4 Long term (current) use of insulin
CPT/HCPCS: 36415; 36430; 70220-TC; 71010-TC; 71020-TC; 71250-TC; 76700-TC; 76942-TC; 80048; 80053; 82042; 82140; 82272; 82550; 82728; 82945; 83540; 83550; 83615; 83735; 83880; 84100; 84157; 84484; 85025; 85027; 85610; 86850; 86900; 86901; 86922; 87040; 87070; 87075; 87081; 87102; 87116; 87205; 87206; 87210; 87899; 88108; 88305-TC; 89051; 93005; 93010; 94640; 99285-25; P9038; P9058

== ENCOUNTER 2017-01-22 12:50 | Emergency (ER) | payer MEDICARE ==
[2017-01-22 12:55] VITALS: BMI 35.9
--- NOTE | 2017-01-22 13:10 | PDOC ---
Attending Attestation - Resident Resident Name: José Kahnson - ED Attending Attestation I have performed the following: I have examined & evaluated the patient, The case was reviewed & discussed with the resident, I agree w/resident's findings & plan, Exceptions are as noted - HPI HPI: 57 yo M history RI, obesity, DM, liver CA (s/p embolization on transplant list) presents with abdominal distension. He has history of ascites, has had multiple paracenteses to remove fluid. He states that he was seen at [facility] 10 days ago, they removed 5 liters of fluid, but it has reaccumulated and he is getting uncomfortable. He states he is compliant with his medication as an outpatient, but it has not been helping. Denies fever, chills, vomiting, SOB. - Physicial Exam PE: GENERAL: Awake, alert, and fully oriented, in no acute distress HEAD: No signs of trauma EYES: PERRLA, EOMI, sclera anicteric, conjunctiva clear ENT: Auricles normal inspection, hearing grossly normal, nares patent, oropharynx clear without exudates. Dry mucosa NECK: Normal ROM, supple, no lymphadenopathy, JVD, or masses LUNGS: Breath sounds equal, clear to auscultation bilaterally. No wheezes, and no crackles HEART: Regular rate and rhythm, normal S1 and S2, no murmurs, rubs or gallops ABDOMEN: Soft, significantly distended with +fluid wave, +RUQ tenderness. No overlying skin changes. Normoactive bowel sounds. No guarding, no rebound. No masses. EXTREMITIES: Normal range of motion, no edema. No clubbing or cyanosis. No cords, erythema, or tenderness NEUROLOGICAL: Cranial nerves II through XII grossly intact. Normal speech, normal gait SKIN: Warm, Dry, normal turgor, no rashes or lesions noted. - Medical Decision Making Patient with history of liver CA, repetitive ascites, requiring multiple paracenteses in the past, presents with ascites and abdominal discomfort. He had a paracentesis 10 days ago at [facility]. Likely paracentesis in the ED- will discuss with Dr. Villanueva regarding volume to remove.
--- NOTE | 2017-01-22 13:25 | PDOC ---
History of Present Illness - History of Present Illness Initial Comments: 01/22/17 13:21 57 yo M with h/o DM, HTN, HLD, CAD, stent placement x 3, cirrhosis 2/2 HERNANDEZ, and portal vein thrombosis 2/2 HCC who presents with abdominal pain. States that over past 3 days has had increased/worsening, unrelenting crampy abdominal pain with RUQ predominance. Endorses worsening SOB over the last 3 days. Denies N/V, fevers, diarrhea/constipation, blood in stool, chills, chest pain, urinary complaints, lightheadedness. Recently seen at [facility] for therapeutic paracentesis with 5 liters drainage 10 days ago. Pt. reports adherence to Furosemide 40 mg QD. Currently on transplant list at [facility]. Denies alcohol intake. <Ralph Kahn - Last Filed: 01/22/17 18:46> <Natacha Leon - Last Filed: 01/23/17 07:35> - General Chief Complaint: Pain Stated Complaint: ABD PAIN BLOATING Time Seen by Provider: 01/22/17 13:09 Past History - Past Medical History Anemia: Yes Asthma: No Cancer: Yes (LIVER) Cardiac Disorders: Yes CVA: No COPD: No CHF: No Dementia: No Diabetes: Yes GI Disorders: Yes (ESOPHAGEAL VARICES,GASTRITIS) Disorders: No HTN: Yes Hypercholesterolemia: Yes Liver Disease: Yes (LIVER CELL CARCINOMA;CIRRHOSIS OF LIVER) Seizures: No Thyroid Disease: No - Surgical History Abdominal Surgery: No Appendectomy: No Cardiac Surgery: Yes (CARDIAC STENTS) Cholecystectomy: Yes Lung Surgery: No Neurologic Surgery: No Orthopedic Surgery: No - Psycho/Social/Smoking Cessation Hx Anxiety: No Suicidal Ideation: No Smoking Status: No Smoking History: Never smoked Have you smoked in the past 12 months: No Number of Cigarettes Smoked Daily: 0 Hx Alcohol Use: No Drug/Substance Use Hx: No Substance Use Type: None Hx Substance Use Treatment: No <Ralph Kahn - Last Filed: 01/22/17 18:46> <Natacha Leon - Last Filed: 01/23/17 07:35> - Past Medical History Allergies/Adverse Reactions: Allergies Allergy/AdvReac Type Severity Reaction Status Date / Time Iodinated Contrast- Oral and Allergy Verified 01/22/17 12:55 IV Dye [Iodinated Contrast Media - IV Dye] Home Medications: Ambulatory Orders Furosemide [Lasix] 40 mg PO DAILY 07/15/16 Insulin Detemir [Levemir Flextouch] 40 unit SQ DAILY 07/15/16 Multivitamins [Multivit ([facility] Formulary)] 1 tab PO DAILY 07/15/16 Nateglinide [Starlix (Nf) -] 60 mg PO BID 07/15/16 Insulin Lispro [Humalog Kwikpen U-200] 12 unit SQ ASDIR 07/19/16 Metformin HCl 500 mg PO BID 08/09/16 Aspirin [ASA -] 81 mg PO DAILY tab.chew 10/30/16 Lactulose (Oral Use) [Cephulac -] 20 gm PO BID #1 bottle 10/30/16 Spironolactone [Aldactone -] 50 mg PO DAILY tablet 10/30/16 Albuterol 2.5/Ipratropium 0.5 [Duoneb -] 1 amp NEB QIDR #30 amp 12/11/16 Atorvastatin Ca [Lipitor] 10 mg PO HS #30 tab 12/11/16 Insulin (Levemir) [Levemir Vial] 20 units SQ HS ml 12/11/16 Insulin (Levemir) [Levemir Vial] 40 units SQ AM ml 12/11/16 Magnesium Oxide [Mag-Ox -] 400 mg PO BID #60 tablet 12/11/16 Nadolol 20 mg PO DAILY #30 tab 12/11/16 Pantoprazole Sodium [Protonix] 40 mg PO DAILY #30 tab 12/11/16 Ranolazine [Ranexa] 1,000 mg PO BID #60 tab 12/11/16 Rivaroxaban [Xarelto -] 20 mg PO DAILY #30 tablet 12/11/16 Review of Systems - Review of Systems Comments:: 01/22/17 13:22 GENERAL/CONSTITUTIONAL: No fever or chills. No weakness. HEAD, EYES, EARS, NOSE AND THROAT: No change in vision. No ear pain or discharge. No sore throat.- CARDIOVASCULAR: No chest pain or shortness of breath RESPIRATORY: No cough, wheezing, or hemoptysis. GASTROINTESTINAL:+ Abdominal terrell. No nausea, vomiting, diarrhea or constipation. GENITOURINARY: No dysuria, frequency, or change in urination. MUSCULOSKELETAL: No joint or muscle swelling or pain. No neck or back pain. SKIN: No rash NEUROLOGIC: No headache, vertigo, loss of consciousness, or change in strength/ sensation. ENDOCRINE: No increased thirst. No abnormal weight change HEMATOLOGIC/LYMPHATIC: No anemia, easy bleeding, or history of blood clots. ALLERGIC/IMMUNOLOGIC: No hives or skin allergy. 1 <Ralph Kahn - Last Filed: 01/22/17 18:46> *Physical Exam - Vital Signs Last Vital Signs Temp Pulse Resp BP Pulse Ox 97.7 F 48 L 20 138/75 100 01/22/17 12:53 01/22/17 12:53 01/22/17 12:53 01/22/17 12:53 01/22/17 12:53 - Physical Exam Comments: 01/22/17 13:22 GENERAL: Awake, alert, and fully oriented, in no acute distress HEAD: No signs of trauma, normocephalic, atraumatic EYES: PERRLA, EOMI, sclera anicteric, conjunctiva clear ENT: Auricles normal inspection, hearing grossly normal, nares patent, oropharynx clear without exudates. Moist mucosa NECK: Normal ROM, supple, no lymphadenopathy, JVD, or masses LUNGS: No distress, speaks full sentences, clear to auscultation bilaterally HEART: Regular rate and rhythm, normal S1 and S2, no murmurs, rubs or gallops, peripheral pulses normal and equal bilaterally. ABDOMEN: Soft, diffusely ttp. Prominent RUQ tenderness. normoactive bowel sounds. No guarding, no rebound. + rigidity. No masses. Absent CVA ttp. EXTREMITIES: Normal inspection, Normal range of motion, no edema. No clubbing or cyanosis. SKIN: Warm, Dry, normal turgor, no rashes or lesions noted. <Ralph Kahn - Last Filed: 01/22/17 18:46> - Vital Signs Last Vital Signs Temp Pulse Resp BP Pulse Ox 98.7 F 54 L 18 135/68 97 01/22/17 19:01 01/22/17 19:01 01/22/17 19:01 01/22/17 19:01 01/22/17 16:23 <Natacha Leon - Last Filed: 01/23/17 07:35> Procedures - Additional Procedures Progress: 01/22/17 17:47 Paracentesis- 5.5 Liters aspirated from RLQ . Consent obtained and 1.5% lidocaine injected into insertion site. <FemiJoséRalph - Last Filed: 01/22/17 18:46> - Additional Procedures Additional Procedures: other Progress: Consent obtained prior to procedure. Site for aspiration confirmed by ultrasound prior to start of procedure- RLQ. Patient was placed in supine position, leaning slightly to his right. Area was prepped with chloraprep, anesthetized locally with 1% lidocaine, 4mL. Needle was advanced into the peritoneal cavity, aspirating straw-colored, slightly cloudy fluid. Samples sent to lab for analysis. Total of 5.5 liters were aspirated. Patient given albumin as per GI recommendations. <Natacha Leon - Last Filed: 01/23/17 07:35> Heart Score/ECG Review - History History: Slightly suspicious - Electrocardiogram EKG: Normal - Age Age: 45-65 - Risk Factors Risk Factors Heart Score: Yes Hx Hypercholesterolemia, Yes Hx Hypertension, Yes Hx Diabetes, Yes Positive family hx of cardiac disease, Yes Hx Obesity Based on the list above the patient has:: >/=3 risk factors or Hx atherosclerotic disease - ECG Intrepretation Rhythm: Regular Rhythm - [place]: Left [place] Deviation - ECG Impressions Ischemic Changes: No Bradycardia: Yes <José Kahnson - Last Filed: 01/22/17 18:46> ED Treatment Course - LABORATORY CBC & Chemistry Diagram: 01/22/17 13:56 01/22/17 13:56 <FemiJoséRalph - Last Filed: 01/22/17 18:46> - LABORATORY CBC & Chemistry Diagram: 01/22/17 13:56 01/22/17 13:56 - ADDITIONAL ORDERS Additional order review: 01/22/17 13:56 RBC 3.35 L MCV 84.0 MCHC 32.7 RDW 20.3 H D MPV 7.8 Neutrophils % 74.8 Lymphocytes % 13.7 D Monocytes % 10.0 Eosinophils % 0.9 Basophils % 0.6 - Medications Given in the ED: ED Medications Discontinued Medications Generic Name Dose Route Start Last Admin Trade Name Freq PRN Reason Stop Dose Admin Albumin Human 25 gm 01/22/17 16:30 01/22/17 17:15 Albumin Human 25% IVPB 01/22/17 16:31 25 gm ONCE ONE Administration Ketorolac Tromethamine 15 mg 01/22/17 18:54 01/22/17 19:15 Toradol Injection - IVPUSH 01/22/17 18:55 Not Given ONCE ONE <Natacha Leon - Last Filed: 01/23/17 07:35> Medical Decision Making - Medical Decision Making 01/22/17 14:19 57 yo M with h/o DM, HTN, HLD, CAD, stent placement x 3, cirrhosis 2/2 HERNANDEZ, and portal vein thrombosis 2/2 HCC who presents with abdominal pain. States that over past 3 days has had increased/worsening, unrelenting crampy abdominal pain with RUQ predominance. No other asx. symtpoms. physical exam reveals distended abdomen with + fluid wave and RUQ ttp. Pt. bradycardic and afebrile. Recently seen at [facility] for therapeutic paracentesis with 5 liters drainage 10 days ago. Pt. reports adherence to Furosemide 40 mg QD. Currently on transplant list at [facility]. Denies alcohol intake. DDx: ascites 2/2 cirhosis, SBP ED Course: CBC CMP Lipase PT/INR 01/22/17 14:[address] Villanueva pure albumin 2gm per 5 liters drained. Send fluid culture and labs put on aldactone 50 mg BID prescription. Call office f/u end of this week 01/22/17 15:34 INR: 1.57 01/22/17 15:35 Albumin: 2.8 01/22/17 17:46 Drained 5.5 Liters paracentesis Albumin 25 mg IVPB Ascitic Fluid: Protein 1, Glucose 170 01/22/17 18:19 4 Peritoneal neutrophils, 87 WBC 01/22/17 18:43 Stable D/C. F/u with Dr. Gillette <Ralph Kahn - Last Filed: 01/22/17 18:46> *DC/Admit/Observation/Transfer - Discharge Dispostion Admit: No <Ralph Kahn - Last Filed: 01/22/17 18:46> <Natacha Leon - Last Filed: 01/23/17 07:35> Diagnosis at time of Disposition: Ascites Qualifiers: Ascites type: other type Qualified Code(s): R18.8 - Other ascites - Discharge Dispostion Disposition: HOME Condition at time of disposition: Improved - Referrals Referrals: Roxanne Duran MD [Primary Care Provider] - Jose De Jesus Villanueva MD [Staff Physician] - - Patient Instructions Printed Discharge Instructions: DI for Abdominal Paracentesis, DI for Ascites Additional Instructions: Please return to ED if you experience worsening abdominal pain, nausea/vomiting , fevers/chills, or worsening symptoms. Please follow up with Dr. Corley by end of next week.
[2017-01-22 14:19] LABS: BASOPHIL 0.6 % (0-2.0); EOSINOPHIL 0.9 % (0-4.5); MCH 27.5 pg (25.7-33.7); MCHC 32.7 g/dl (32.0-35.9); MEAN PLT VOLUME 7.8 fl (7.5-11.1); NEUTROPHILS 74.8 % (42.8-82.8); PLATELET COUNT 110 K/MM3 (134-434); RDW 20.3 % (11.9-15.9); WHITE BLOOD COUNT 5.7 K/mm3 (4.0-10.0)
[2017-01-22 14:42] LABS: INR 1.57 (0.82-1.09); PROTHROMBIN TIME (PATIENT) 17.4 SEC (9.98-11.88)
[2017-01-22 14:48] LABS: ALBUMIN 2.8 g/dl (3.4-5.0); ANION GAP 11 (8-16); BILIRUBIN,TOTAL 1.5 mg/dL (0.2-1.0); CALCIUM 9.2 mg/dL (8.5-10.1); CO2 25 mmol/L (21-32); CREATININE 1.3 mg/dL (0.7-1.3); GLUCOSE,RANDOM 150 mg/dL (74-106); SGOT/AST 31 U/L (15-37); SGPT/ALT 29 U/L (12-78)
[2017-01-22 14:49] LABS: ALK PHOS 158 U/L (45-117); TOT PROT 7.2 g/dl (6.4-8.2)
[2017-01-22] MEDS ORDERED: ALBUMIN HUMAN 5% 250 ML IV SOLUTION IVPB ONE ×2 (15:36→16:10)
[2017-01-22 16:24] VITALS: BP 135/68
[2017-01-22] MEDS ORDERED: ALBUMIN HUMAN 25% 12.5 GM/50 ML VIAL IVPB ONE (16:30)
[2017-01-22 18:33] LABS: PERITONEAL FLUID LYMPHOCYTE 80 %; PERITONEAL FLUID MACROPHAGE 5 %; PERITONEAL FLUID MESOTHELIAL 6 %; PERITONEAL FLUID MONOCYTE 5 %; PERITONEAL FLUID NEUTROPHIL 4 %
--- NOTE | 2017-01-22 18:50 | PDOC ---
*Physical Exam - Vital Signs Last Vital Signs Temp Pulse Resp BP Pulse Ox 97.7 F 48 L 18 135/68 97 01/22/17 12:53 01/22/17 16:23 01/22/17 16:23 01/22/17 16:23 01/22/17 16:23 ED Treatment Course - LABORATORY CBC & Chemistry Diagram: 01/22/17 13:56 01/22/17 13:56 - ADDITIONAL ORDERS Additional order review: Laboratory Results 01/22/17 01/22/17 01/22/17 17:00 17:00 14:01 INR Sodium Potassium Chloride Carbon Dioxide Anion Gap BUN Creatinine Creat Clearance w eGFR Random Glucose Calcium Total Bilirubin AST ALT Alkaline Phosphatase Total Protein Albumin Lipase 86 Peritoneal WBC 87 Peritoneal RBC 809 Periton Neutrophils 4 Periton Lymphocytes 80 Peritoneal Monocytes 5 Periton Mesothelial 6 Periton Macrophages 5 Peritoneal Diff Commnt Peritoneal Tot Protein 1 Peritoneal Albumin 0 Peritoneal LDH 27 Peritoneal Glucose 170 Peritoneal Amylase 10 01/22/17 01/22/17 13:56 13:56 INR 1.57 H Sodium 142 Potassium 4.5 Chloride 106 Carbon Dioxide 25 Anion Gap 11 BUN 25 H D Creatinine 1.3 Creat Clearance w eGFR 56.50 Random Glucose 150 H Calcium 9.2 Total Bilirubin 1.5 H AST 31 ALT 29 D Alkaline Phosphatase 158 H D Total Protein 7.2 Albumin 2.8 L Lipase Peritoneal WBC Peritoneal RBC Periton Neutrophils Periton Lymphocytes Peritoneal Monocytes Periton Mesothelial Periton Macrophages Peritoneal Diff Commnt Peritoneal Tot Protein Peritoneal Albumin Peritoneal LDH Peritoneal Glucose Peritoneal Amylase 01/22/17 13:56 RBC 3.35 L MCV 84.0 MCHC 32.7 RDW 20.3 H D MPV 7.8 Neutrophils % 74.8 Lymphocytes % 13.7 D Monocytes % 10.0 Eosinophils % 0.9 Basophils % 0.6 - Medications Given in the ED: ED Medications Discontinued Medications Generic Name Dose Route Start Last Admin Trade Name Freq PRN Reason Stop Dose Admin Albumin Human 25 gm 01/22/17 16:30 01/22/17 17:15 Albumin Human 25% IVPB 01/22/17 16:31 25 gm ONCE ONE Administration Medical Decision Making - Medical Decision Making 01/22/17 18:49 Patient signed out to me by Dr. Leon. Briefly patient has a history of liver failure and presented to the ED for increasing abdominal distention. A therapeutic paracentesis was done and on my arrival the patient was pending his peritoneal fluid studies. Peritoneal fluid studies have returned with a white blood cell count of 87 which is not consistent with SBP. The patient feels better. BP 2 hours post tap 131/71. I discussed the physical exam findings, ancillary test results and final diagnoses with the patient. I answered all of the patient's questions. The patient was satisfied with the care received and felt comfortable with the discharge plan and treatment plan. The patient will call their primary care physician within 24 hours to arrange follow-up and will return to the Emergency Department with any new, persistent or worsening symptoms. *DC/Admit/Observation/Transfer Diagnosis at time of Disposition: Ascites Qualifiers: Ascites type: other type Qualified Code(s): R18.8 - Other ascites - Discharge Dispostion Disposition: HOME Condition at time of disposition: Improved - Referrals Referrals: Roxanne Duran MD [Primary Care Provider] - Jose De Jesus Villanueva MD [Staff Physician] - - Patient Instructions Printed Discharge Instructions: DI for Ascites, DI for Abdominal Paracentesis Additional Instructions: Please return to ED if you experience worsening abdominal pain, nausea/vomiting , fevers/chills, or worsening symptoms. Please follow up with Dr. Corley by end of next week. - Post Discharge Activity
[2017-01-22] MEDS ORDERED: KETOROLAC TROMETHAMINE 15 MG/ML VIAL IVPUSH ONE (18:54)
[2017-01-22 19:02] VITALS: PULSE 54; TEMP 98.7
--- NOTE | 2017-01-23 09:48 | EKG ---
Test Reason : Blood Pressure : / mmHG Vent. Rate : 047 BPM Atrial Rate : 047 BPM P-R Int : 180 ms QRS Dur : 106 ms QT Int : 506 ms P-R-T Axes : 005 -34 -08 degrees QTc Int : 447 ms SINUS BRADYCARDIA LEFT AXIS DEVIATION MINIMAL VOLTAGE CRITERIA FOR LVH, MAY BE NORMAL VARIANT ABNORMAL ECG WHEN COMPARED WITH ECG OF 08-DEC-2016 09:30, NO SIGNIFICANT CHANGE WAS FOUND Confirmed by MD ALONZO, NEETU ([id number]) on 01/23/2017 9:48:33 AM Referred By: Confirmed By:NEETU ROSADO MD
== END 2017-01-22 19:15 | disposition home or self-care (01) ==
LOC: JER 12:50
PROC: 0W9G30Z Drainage of Peritoneal Cavity with Drainage Device, Percutaneous Approach (ICD-10-PCS; principal; 2017-01-22)
PROC: 0W9G3ZZ Drainage of Peritoneal Cavity, Percutaneous Approach (ICD-10-PCS; 2017-01-22)
DX: R18.8 Other ascites (principal); E11.9 Type 2 diabetes mellitus without complications; Z79.4 Long term (current) use of insulin; E78.00 Pure hypercholesterolemia, unspecified; I25.10 Atherosclerotic heart disease of native coronary artery without angina pectoris; Z95.5 Presence of coronary angioplasty implant and graft; K74.69 Other cirrhosis of liver; I81 Portal vein thrombosis
CPT/HCPCS: 36415; 80053; 82042; 82150; 82945; 83615; 83690; 84157; 85025; 85610; 87070; 87075; 87205; 89051; 93005; 93010; 99283-25; P9047

== ENCOUNTER 2017-02-01 11:15 | Emergency (ER) | payer MEDICARE ==
[2017-02-01 11:36] VITALS: BMI 35.9
--- NOTE | 2017-02-01 12:32 | PDOC ---
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 He comes into the ED with the specific goal of having this fluid removed. The last time he had a paracentesis was last week (5.5 L removed), and the time before that was 10 days prior (5 L removed). He has not followed up with his PCP or other outpatient providers since his ED visit last week. He denies any chest pain, shortness of breath, palpitations, cough, fever, chills, nausea, vomiting, black /bloody stool, confusion, difficulty speaking or balancing, numbness, tingling, weakness or other symptoms. Past History - Past Medical History Allergies/Adverse Reactions: Allergies Allergy/AdvReac Type Severity Reaction Status Date / Time Iodinated Contrast- Oral and Allergy Verified 01/22/17 12:55 IV Dye [Iodinated Contrast Media - IV Dye] Home Medications: Ambulatory Orders Furosemide [Lasix] 40 mg PO DAILY 07/15/16 Insulin Detemir [Levemir Flextouch] 40 unit SQ DAILY 07/15/16 Multivitamins [Multivit ([facility] Formulary)] 1 tab PO DAILY 07/15/16 Nateglinide [Starlix (Nf) -] 60 mg PO BID 07/15/16 Insulin Lispro [Humalog Kwikpen U-200] 12 unit SQ ASDIR 07/19/16 Metformin HCl 500 mg PO BID 08/09/16 Aspirin [ASA -] 81 mg PO DAILY tab.chew 10/30/16 Lactulose (Oral Use) [Cephulac -] 20 gm PO BID #1 bottle 10/30/16 Spironolactone [Aldactone -] 50 mg PO DAILY tablet 10/30/16 Albuterol 2.5/Ipratropium 0.5 [Duoneb -] 1 amp NEB QIDR #30 amp 12/11/16 Atorvastatin Ca [Lipitor] 10 mg PO HS #30 tab 12/11/16 Insulin (Levemir) [Levemir Vial] 20 units SQ HS ml 12/11/16 Insulin (Levemir) [Levemir Vial] 40 units SQ AM ml 12/11/16 Magnesium Oxide [Mag-Ox -] 400 mg PO BID #60 tablet 12/11/16 Nadolol 20 mg PO DAILY #30 tab 12/11/16 Pantoprazole Sodium [Protonix] 40 mg PO DAILY #30 tab 12/11/16 Ranolazine [Ranexa] 1,000 mg PO BID #60 tab 12/11/16 Rivaroxaban [Xarelto -] 20 mg PO DAILY #30 tablet 12/11/16 Anemia: Yes Asthma: No Cancer: Yes (LIVER) Cardiac Disorders: Yes CVA: No COPD: No CHF: No Dementia: No Diabetes: Yes GI Disorders: Yes (ESOPHAGEAL VARICES,GASTRITIS) Disorders: No HTN: Yes Hypercholesterolemia: Yes Liver Disease: Yes (LIVER CELL CARCINOMA;CIRRHOSIS OF LIVER) Seizures: No Thyroid Disease: No - Surgical History Abdominal Surgery: No Appendectomy: No Cardiac Surgery: Yes (CARDIAC STENTS) Cholecystectomy: Yes Lung Surgery: No Neurologic Surgery: No Orthopedic Surgery: No - Suicide/Smoking/Psychosocial Hx Smoking Status: No Smoking History: Never smoked Have you smoked in the past 12 months: No Number of Cigarettes Smoked Daily: 0 Information on smoking cessation initiated: No Hx Alcohol Use: No Drug/Substance Use Hx: No Substance Use Type: None Hx Substance Use Treatment: No Review of Systems - Review of Systems Able to Perform ROS?: Yes Constitutional: No: Chills, Fever, Unexplained wgt Loss HEENTM: No: Nose Congestion, Throat Pain Respiratory: No: Cough, Shortness of Breath Cardiac (ROS): Yes: Edema. No: Chest Pain, Palpitations ABD/GI: Yes: Abdominal Distended, Other (abdominal pain). No: Constipated, Diarrhea, Nausea, Vomiting : No: Burning, Dysuria Musculoskeletal: No: Back Pain, Neck Pain Integumentary: No: Bruising, Rash Neurological: No: Headache, Numbness, Tingling, Weakness, Dizziness Endocrine: No: Unexplained Weight Gain, Unexplained Weight Loss *Physical Exam - Vital Signs Last Vital Signs Temp Pulse Resp BP Pulse Ox 98 F 55 L 22 127/78 100 02/01/17 11:32 02/01/17 11:32 02/01/17 11:32 02/01/17 11:32 02/01/17 11:32 - Physical Exam General Appearance: Yes: Nourished, Appropriately Dressed, Obese. No: Apparent Distress HEENT: positive: EOMI, MARTHA, Normal Voice, Hearing Grossly Normal. negative: Scleral Icterus (R), Scleral Icterus (L), Nasal Congestion Neck: positive: Trachea midline, Supple. negative: Tender, Rigid Respiratory/Chest: positive: Lungs Clear, Normal Breath Sounds. negative: Respiratory Distress, Crackles, Rhonchi, Stridor, Wheezing Cardiovascular: positive: Regular Rhythm, Regular Rate, Edema (Trace BLE pitting edema). negative: Murmur Gastrointestinal/Abdominal: positive: Normal Bowel Sounds, Tender (mild RUQ and epigastric tenderness), Protuberent, Other (tight skin). negative: Soft Musculoskeletal: positive: Normal Inspection. negative: Decreased Range of Motion, Vertebral Tenderness Extremity: positive: Normal Capillary Refill, Normal Inspection, Normal Range of Motion, Swelling (mild BLE). negative: Tender, Cyanosis Integumentary: positive: Normal Color, Dry, Warm. 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 negative: EOM Palsy, Facial Droop, Numbness, Sensory Deficit, Confused, Disoriented ED Treatment Course - LABORATORY CBC & Chemistry Diagram: 02/01/17 12:25 02/01/17 12:25 Medical Decision Making - Medical Decision Making 57 yom with h/o ESLD 2/2 HCC/cirrhosis, portal venous thrombosis on anticoagulant, p/w tight ascites. Had paracentesis here last week, also 10d prior to that. Minimal pain; most likely this is simple but large-volume ascites without SBP or other infection. Ordered is CBCD, CMP, Mg, Phos, PT/INR, lipase. Results return and the patient does not have acute laboratory abnormalities. He should be going to scheduled OP appointments for paracentesis but has not set this up. IR graciously agrees to take the Pt for US-guided paracentesis. Will replace albumin with [address] Turchioe's recommendation a week ago. Spoke with Dr. Villanueva who recommends paracentesis to remove all ascites (not 5 -6 liters). Or recommends better plan would be for the patient to go to [facility]. The patient should be on both Aldactone and Lasix. Pt is counseled on ED return precautions. He also is encouraged to find outpatient avenue for these repeat paracenteses. He is appropriate for DC home with close OP follow up. *DC/Admit/Observation/Transfer Diagnosis at time of Disposition: Ascites due to alcoholic cirrhosis - Discharge Dispostion Disposition: HOME Condition at time of disposition: Stable Admit: No - Patient Instructions Printed Discharge Instructions: DI for Ascites Additional Instructions: Usted melchor visto en la leesa emergency por ascites (fluido en al abdomen). No hay un nuevo cambio en prisca laboratorios de joyce. El radiologo saco cain porcion de esto fluido y te dimos la solucion de proteina despues del procedimiento. Usted tiene que seguir mas de cerca con el Dr. Villanueva y el equipo de doctores en [facility] porque ellos saben dai historia y pueden ayudar mas. Usted puede hacer unas citas para estos procedimientos en la clinica y no debe megan cain necesidad de entrar en el departamento de emergencia. Tiene que dougie todos prisca medicinas, especialmente el Aldactone (spironolactone) y el Lasix ( furosemide). Estas medicinas son para prevenir el acumulacion de fluido en el abdomen. Las razones de regresar a la leesa emergencia son fiebre, vomita, dolor muy grave en el abdomen, y otras nuevas sintomas. De lo contrario, por favor consulte con dai medico primario. Print Language: SWEDISH
[2017-02-01 12:42] LABS: BASOPHIL 0.8 % (0-2.0); EOSINOPHIL 0.9 % (0-4.5); MCH 27.4 pg (25.7-33.7); MCHC 32.6 g/dl (32.0-35.9); MEAN CELL VOLUME 83.8 fl (80-96); MEAN PLT VOLUME 7.9 fl (7.5-11.1); NEUTROPHILS 73.9 % (42.8-82.8); PLATELET COUNT 104 K/MM3 (134-434); RDW 20.3 % (11.9-15.9); WHITE BLOOD COUNT 5.8 K/mm3 (4.0-10.0)
[2017-02-01 12:57] LABS: INR 1.13 (0.82-1.09); PROTHROMBIN TIME (PATIENT) 12.5 SEC (9.98-11.88)
--- NOTE | 2017-02-01 12:59 | PDOC ---
Attending Attestation - Resident Resident Name: AryanMarta - ED Attending Attestation I have performed the following: I have examined & evaluated the patient, The case was reviewed & discussed with the resident, I agree w/resident's findings & plan, Exceptions are as noted - HPI HPI: 02/01/17 12:56 57-year-old male with history of cirrhosis and recurrent ascites requiring therapeutic paracentesis with increasing frequency presents with worsening abdominal ascites. No fevers or chills. - Physicial Exam PE: 02/01/17 12:57 afebrile well appearing distended abdomen without focal guarding/rebound no cellulitis neuro intact, mental status normal - Medical Decision Making 02/01/17 12:58 Patient seen and evaluated with the resident. I agree with the overall evaluation, assessment, and management with the following summary of visit: 57-year-old male presents with recurrence of his ascites, requesting therapeutic paracentesis. No evidence of infectious process, neurologically and mentally clear. Check basic labs Discuss with Dr. Villanueva re: recommendations for therapeutic paracentesis. Has had IR and ED paracentesis in the past.
[2017-02-01 13:00] LABS: ALBUMIN 2.8 g/dl (3.4-5.0); ALK PHOS 156 U/L (45-117); ANION GAP 10 (8-16); BILIRUBIN,TOTAL 1.1 mg/dL (0.2-1.0); CALCIUM 8.8 mg/dL (8.5-10.1); CO2 24 mmol/L (21-32); CREATININE 1.3 mg/dL (0.7-1.3); GLUCOSE,RANDOM 144 mg/dL (74-106); MAGNESIUM 1.7 mg/dL (1.8-2.4); SGOT/AST 29 U/L (15-37); SGPT/ALT 25 U/L (12-78); TOT PROT 7.4 g/dl (6.4-8.2)
[2017-02-01] MEDS ORDERED: ALBUMIN HUMAN 25% 12.5 GM/50 ML VIAL IVPB ONE ×2 (16:44→17:15)
[2017-02-01 18:52] VITALS: BP 124/68; PULSE 56; TEMP 98.7
== END 2017-02-01 18:53 | disposition home or self-care (01) ==
LOC: JER 11:15
PROC: 0W9G3ZZ Drainage of Peritoneal Cavity, Percutaneous Approach (ICD-10-PCS; principal; 2017-02-01)
PROC: BW40ZZZ Ultrasonography of Abdomen (ICD-10-PCS; 2017-02-01)
PROC: 3E033GC Introduction of Other Therapeutic Substance into Peripheral Vein, Percutaneous Approach (ICD-10-PCS; 2017-02-01)
DX: K70.31 Alcoholic cirrhosis of liver with ascites (principal); B19.20 Unspecified viral hepatitis C without hepatic coma; I81 Portal vein thrombosis; Z79.01 Long term (current) use of anticoagulants; I10 Essential (primary) hypertension; E78.00 Pure hypercholesterolemia, unspecified; E11.9 Type 2 diabetes mellitus without complications; Z79.4 Long term (current) use of insulin; Z79.84 Long term (current) use of oral hypoglycemic drugs; Z95.5 Presence of coronary angioplasty implant and graft
CPT/HCPCS: 36415; 76942-TC; 80053; 83690; 83735; 84100; 85025; 85610; 86850; 86900; 86901; 99283-25; P9047

== ENCOUNTER 2017-03-28 15:16 | Inpatient (IN) | payer MEDICARE, OTHER ==
[2017-03-28 15:23] VITALS: BMI 35.9
--- NOTE | 2017-03-28 15:27 | PDOC ---
Rapid Medical Evaluation Chief Complaint: Wound Infection Time Seen by Provider: 03/28/17 15:22 Medical Evaluation: Allergies Allergy/AdvReac Type Severity Reaction Status Date / Time Iodinated Contrast- Oral and Allergy Verified 03/28/17 15:20 IV Dye [Iodinated Contrast Media - IV Dye] 03/28/17 15:23 I have performed a brief in-person evaluation of this patient. The Patient presents with a chief complaint of pain to left 4th toe x 3 days s/p amputation of 4th left toe, states re-injured toe one week ago. Complaining of pain, redness and yellowish drainage from wound Pertinent physical exam findings are: NAD unlabored breathing unable to bear weight on leg I have ordered the following: IV access, cbc, bmp, wound culture The patient will proceed to the ED for further evaluation.
--- NOTE | 2017-03-28 16:09 | PDOC ---
History of Present Illness - General Chief Complaint: Wound Infection Stated Complaint: LT FOOT INFECTION Time Seen by Provider: 03/28/17 15:22 History Source: Patient Exam Limitations: No Limitations - History of Present Illness Initial Comments: 03/28/17 16:40 Patient is a 57 year old male with significant medical hx of IDDM, CAD s/p 4 cardiac stents, HTN, chronic liver disease, liver CA (currently on waiting list for liver transplant), multiple bilateral toe amputations, esophageal varices, gastritis, diabetic neuropathy, and colitis who is presenting to the ED with an injury to the fourth toe, s/p amputation 6 months prior, walked into furniture 2 days ago. Area started bleeding and small open area noted ,and now with redness and swelling to the dorsum of the left foot. Low-grade fever, denies chills or rigor. Drainage to area this am. FHx: Brother and father of alcoholism. Two sisters who are diabetic. Mother of breast CA. Surgical Hx: Cholecystectomy, esophageal hernia repair., bilateral multiple toe amputations. Denies hx of alcohol use or tobacco use Allergies: No known allergies Medications: See medicaiton list Vital signs on arrival are notable for temp of 100.8. PCP: Dr. Duran. Review of Systems GENERAL/CONSTITUTIONAL: No fever or chills. No weakness. No weight change. HEAD, EYES, EARS, NOSE AND THROAT: No change in vision. No ear pain or discharge. No sore throat. CARDIOVASCULAR: No chest pain or shortness of breath. RESPIRATORY: No cough, wheezing, or hemoptysis. GASTROINTESTINAL: No nausea, vomiting, diarrhea or constipation. No rectal bleeding.Chronic abdominal distention. GENITOURINARY: No dysuria, frequency, or change in urination. MUSCULOSKELETAL: No joint or muscle swelling or pain. No neck or back pain. SKIN : No rash or easy bruising. erthema and edema to the dorsum of the left foot. NEUROLOGIC: No headache, vertigo, loss of consciousness, or loss of sensation. PSYCHIATRIC: No depression or anxiety. ENDOCRINE: No increased thirst. No abnormal weight change. HEMATOLOGIC/LYMPHATIC: No anemia, easy bleeding, or history of blood clots. ALLERGIC/IMMUNOLOGIC: No hives or skin allergy. No latex allergy. Physical Exam: GENERAL: The patient is awake, alert, and fully oriented, in no acute distress. EYES: Pupils equal, round and reactive to light, extraocular movements intact, sclera anicteric, conjunctiva clear. ENT: Ears normal, nares patent, oropharynx clear without exudates. Moist mucous membranes. No uvula deviation NECK: Normal range of motion, supple without lymphadenopathy, JVD, or masses. LUNGS: Breath sounds equal, clear to auscultation bilaterally. No wheezes, and no crackles. HEART: Regular rate and rhythm, normal S1 and S2 without murmur, rub or gallop. ABDOMEN: Distended, Tympanic, nontender, normoactive bowel sounds. No guarding , no rebound. No masses. No bruising or abrasions MUSCULOSKELETAL: Normal range of motion, no edema. No clubbing or cyanosis. No cords, erythema, or tenderness. No CVA Tenderness with fist. NEUROLOGICAL: Cranial nerves II through XII grossly intact. Normal speech, normal gait. SKIN: Warm, Dry, normal turgor, no rashes or lesions noted. + 3 pitting edema to the left foot, Erthema to the dorsum of the left foot, well demarcated. No streaking. Past History - Past Medical History Allergies/Adverse Reactions: Allergies Allergy/AdvReac Type Severity Reaction Status Date / Time Iodinated Contrast- Oral and Allergy Verified 03/28/17 15:20 IV Dye [Iodinated Contrast Media - IV Dye] Home Medications: Ambulatory Orders Furosemide [Lasix] 40 mg PO DAILY 07/15/16 Insulin Detemir [Levemir Flextouch] 40 unit SQ DAILY 07/15/16 Multivitamins [Multivit ([facility] Formulary)] 1 tab PO DAILY 07/15/16 Nateglinide [Starlix (Nf) -] 60 mg PO BID 07/15/16 Metformin HCl 500 mg PO BID 08/09/16 Aspirin [ASA -] 81 mg PO DAILY tab.chew 10/30/16 Lactulose (Oral Use) [Cephulac -] 20 gm PO BID #1 bottle 10/30/16 Spironolactone [Aldactone -] 50 mg PO DAILY tablet 10/30/16 Albuterol 2.5/Ipratropium 0.5 [Duoneb -] 1 amp NEB QIDR #30 amp 12/11/16 Atorvastatin Ca [Lipitor] 10 mg PO HS #30 tab 12/11/16 Insulin (Levemir) [Levemir Vial] 20 units SQ HS ml 12/11/16 Nadolol 20 mg PO DAILY #30 tab 12/11/16 Pantoprazole Sodium [Protonix] 40 mg PO DAILY #30 tab 12/11/16 Ranolazine [Ranexa] 1,000 mg PO BID #60 tab 12/11/16 Rivaroxaban [Xarelto -] 20 mg PO DAILY #30 tablet 12/11/16 Benazepril HCl [Lotensin] 20 mg PO DAILY 03/28/17 Ergocalciferol (Vitamin D2) [Vitamin D2] 50,000 unit PO DAILY 03/28/17 Anemia: Yes Asthma: No Cancer: Yes (LIVER) Cardiac Disorders: Yes CVA: No COPD: No CHF: No DVT: No Dementia: No Diabetes: Yes GI Disorders: Yes (ESOPHAGEAL VARICES,GASTRITIS) Disorders: No HTN: Yes Hypercholesterolemia: Yes Liver Disease: Yes (LIVER CELL CARCINOMA;CIRRHOSIS OF LIVER) Seizures: No Thyroid Disease: No - Surgical History Abdominal Surgery: No Appendectomy: No Cardiac Surgery: Yes (CARDIAC STENTS) Cholecystectomy: Yes Lung Surgery: No Neurologic Surgery: No Orthopedic Surgery: No - Suicide/Smoking/Psychosocial Hx Smoking Status: No Smoking History: Never smoked Have you smoked in the past 12 months: No Number of Cigarettes Smoked Daily: 0 Information on smoking cessation initiated: No Hx Alcohol Use: No Drug/Substance Use Hx: No Substance Use Type: None Hx Substance Use Treatment: No *Physical Exam - Vital Signs Last Vital Signs Temp Pulse Resp BP Pulse Ox 100.6 F H 60 18 110/82 100 03/28/17 15:21 03/28/17 15:21 03/28/17 15:21 03/28/17 15:21 03/28/17 15:21 ED Treatment Course - LABORATORY CBC & Chemistry Diagram: 03/28/17 15:57 03/28/17 16:40 Medical Decision Making - Medical Decision Making 03/28/17 18:01 A/P: Patient here for evaluation of rule out cellulitis to left extremity, states that he was walking and hit his amputated stump of left fourth toe against a piece of furniture since has developed erythema edema and drainage to area. Some with a low-grade temperature of 100.8. Denies any chest pain or shortness of breath. Plan: CBC, CMP, x-ray of left foot Because the patient's history EKG, chest x-ray consider admission. Laboratory Results - last 24 hr 03/28/17 03/28/17 03/28/17 15:57 15:57 16:40 WBC 9.8 D RBC 3.02 L Hgb 8.1 L D Hct 24.7 L MCV 81.8 MCH 26.7 MCHC 32.6 RDW 18.5 H Plt Count 107 L MPV 8.2 Neutrophils % 86.0 H Lymphocytes % 5.9 L D Monocytes % 7.7 Eosinophils % 0.0 D Basophils % 0.4 Sodium 132 L 133 L Potassium 5.2 H 5.2 H Chloride 100 101 Carbon Dioxide 23 21 Anion Gap 9 11 BUN 20 H 20 H Creatinine 1.3 1.3 Creat Clearance w eGFR 56.50 Random Glucose 232 H D 227 H Calcium 8.6 8.1 L Total Bilirubin 1.8 H D AST 24 ALT 22 Alkaline Phosphatase 141 H C-Reactive Protein 8.9 H D Total Protein 7.2 Albumin 2.6 L Labs reviewed, within normal limits consistent with patient's past history of lab results. Dr. Duran to discuss admission. Zosyn 3.375 ordered 03/28/17 18:[address] Duran, patient to be admitted to Dr. Flores. Call placed to Dr. Flores, 03/28/17 18:[address] Nicolas. Patient admitted to Dr. Flores, med surg. 03/28/17 19:10 Laboratory Tests 03/28/17 03/28/17 16:40 16:50 ESR 95 H Lactic Acid 3.3 H* Patient lactic acid is 3.3 1 L normal saline ordered. *DC/Admit/Observation/Transfer Diagnosis at time of Disposition: Cellulitis Qualifiers: Site of cellulitis: extremity Site of cellulitis of extremity: toe Laterality: left Qualified Code(s): L03.032 - Cellulitis of left toe - Discharge Dispostion Condition at time of disposition: Guarded Admit: Yes - Referrals Referrals: Roxanne Duran MD [Primary Care Provider] - - Patient Instructions - Post Discharge Activity
[2017-03-28 16:11] LABS: BASOPHIL 0.4 % (0-2.0); MCH 26.7 pg (25.7-33.7); MCHC 32.6 g/dl (32.0-35.9); MEAN CELL VOLUME 81.8 fl (80-96); MEAN PLT VOLUME 8.2 fl (7.5-11.1); PLATELET COUNT 107 K/MM3 (134-434); RDW 18.5 % (11.9-15.9); WHITE BLOOD COUNT 9.8 K/mm3 (4.0-10.0)
[2017-03-28 16:28] LABS: ANION GAP 9 (8-16); CALCIUM 8.6 mg/dL (8.5-10.1); CO2 23 mmol/L (21-32); CREATININE 1.3 mg/dL (0.7-1.3); GLUCOSE,RANDOM 232 mg/dL (74-106)
[2017-03-28] MEDS ORDERED: IBUPROFEN 600 MG TABLET (FP) PO ONE ×2 (16:37→16:41)
[2017-03-28 17:04] LABS: ALBUMIN 2.6 g/dl (3.4-5.0); ALK PHOS 141 U/L (45-117); ANION GAP 11 (8-16); BILIRUBIN,TOTAL 1.8 mg/dL (0.2-1.0); C-REACTIVE PROTEIN 8.9 MG/DL (0.00-0.3); CALCIUM 8.1 mg/dL (8.5-10.1); CO2 21 mmol/L (21-32); CREATININE 1.3 mg/dL (0.7-1.3); GLUCOSE,RANDOM 227 mg/dL (74-106); SGOT/AST 24 U/L (15-37); SGPT/ALT 22 U/L (12-78); TOT PROT 7.2 g/dl (6.4-8.2)
[2017-03-28] MEDS ORDERED: PIPERACIL/TAZOB 3.375 GM 3.375 GM/50 ML PREMIX IVPB ONE (18:04)
[2017-03-28] MEDS ORDERED: PIPERACILLIN/TAZOB 3.375 GM 3.375 GM in DEXTROSE 5%-WATER - 50 ML IVPB ONE (18:30)
[2017-03-28] MEDS ORDERED: PIPERACILLIN/TAZOB 3.375 GM 3.375 GM/50 ML BAG IVPB ONE (19:01)
[2017-03-28] MEDS ORDERED: SODIUM CHLORIDE 0.9% 1000 ML INFUS.BAG IV ONE (19:07)
[2017-03-28] MEDS ORDERED: LACTULOSE 20 GM/30 ML UDC (FOR ORAL USE ONLY) PO PRN (21:03)
[2017-03-28] MEDS ORDERED: INSULIN (NOVOLOG) ASPART 100 UNITS/ML 10ML VIAL ONE (21:49)
[2017-03-28] MEDS ORDERED: RANOLAZINE E.R. 500 MG TABLET (FP) ONE (21:49)
[2017-03-28] MEDS: ATORVASTATIN CA 10 MG TABLET (FP) PO SCH ×2 (22:03→22:07)
[2017-03-28] MEDS: metFORMIN HCL 500 MG TABLET (FP) PO SCH (22:03)
[2017-03-28] MEDS: RANOLAZINE E.R. 1,000 MG TABLET (FP) PO SCH ×2 (22:04→22:07)
[2017-03-28] MEDS: INSULIN DETEMIR 100 UNITS/ML MDV SQ SCH ×2 (22:04→22:06)
[2017-03-28] MEDS: INSULIN SLIDING SCALE (NOVOLOG) 1 VIAL SQ SCH ×2 (22:05→22:07)
[2017-03-29] MEDS ORDERED: PNEUMOC 13-VAL CONJ-DIP CRM/PF 0.5 ML DISP.SYRIN IM ONE (00:09)
[2017-03-29] MEDS: INSULIN SLIDING SCALE (NOVOLOG) 1 VIAL SQ SCH ×4 (06:13→22:08)
[2017-03-29] MEDS: INSULIN DETEMIR 100 UNITS/ML MDV SQ SCH ×2 (06:14→22:08)
[2017-03-29] MEDS: metFORMIN HCL 500 MG TABLET (FP) PO SCH ×2 (06:14→17:39)
[2017-03-29] MEDS ORDERED: INSULIN (NOVOLOG) ASPART 100 UNITS/ML 10ML VIAL ONE (06:49)
[2017-03-29 07:31] LABS: MCH 26.5 pg (25.7-33.7); MCHC 32.4 g/dl (32.0-35.9); MEAN CELL VOLUME 81.8 fl (80-96); PLATELET COUNT 78 K/MM3 (134-434); RDW 18.6 % (11.9-15.9); WHITE BLOOD COUNT 6.5 K/mm3 (4.0-10.0)
[2017-03-29 08:40] LABS: ALBUMIN 2.1 g/dl (3.4-5.0); ALK PHOS 116 U/L (45-117); ANION GAP 8 (8-16); BILIRUBIN,TOTAL 1.4 mg/dL (0.2-1.0); CALCIUM 7.5 mg/dL (8.5-10.1); CHOLESTEROL 108 mg/dL (50-200); CO2 24 mmol/L (21-32); CREATININE 1.2 mg/dL (0.7-1.3); GLUCOSE,RANDOM 172 mg/dL (74-106); SGOT/AST 16 U/L (15-37); SGPT/ALT 18 U/L (12-78)
[2017-03-29] MEDS ORDERED: PNEUMOCOCCAL 23 VACCINE 0.5 ML VIAL IM ONE (09:00)
[2017-03-29] MEDS ORDERED: FLU VACCINE QUAD 60 MCG/0.5 ML (MDV 17-18) IM ONE (09:00)
[2017-03-29] MEDS ORDERED: RANOLAZINE E.R. 500 MG TABLET (FP) ONE ×2 (09:49→21:47)
[2017-03-29] MEDS ORDERED: PT OWN MED DRAWER 7, Y5N ONE (09:50)
[2017-03-29] MEDS: ASPIRIN 81 MG CHEWABLE TABLETS PO SCH (09:57)
[2017-03-29] MEDS: RANOLAZINE E.R. 1,000 MG TABLET (FP) PO SCH ×2 (09:58→22:09)
[2017-03-29] MEDS: SPIRONOLACTONE 25 MG TABLET (FP) PO SCH (09:58)
[2017-03-29] MEDS: LISINOPRIL 10 MG TABLET (FP) PO SCH (09:58)
[2017-03-29] MEDS: NADOLOL 40 MG TABLET (FP) PO SCH (09:59)
[2017-03-29] MEDS ORDERED: RIVAROXABAN 20 MG TABLET PO SCH ×2 (10:00→10:43)
[2017-03-29] MEDS: FUROSEMIDE 40 MG TABLET (FP) PO SCH (10:00)
[2017-03-29] MEDS: PANTOPRAZOLE 40 MG TABLET (FP) PO SCH (10:00)
[2017-03-29] MEDS ORDERED: SODIUM CHLORIDE 1,000 ML IV SCH (10:30)
--- NOTE | 2017-03-29 10:31 | HP ---
Admitting History and Physical - Primary Care Physician PCP: Jg Flores - Admission Chief Complaint: cellulitis History of Present Illness: Patient is a 57 year old male with significant medical hx of IDDM, CAD s/p 4 cardiac stents, HTN, chronic liver disease, liver CA (currently on waiting list for liver transplant), multiple bilateral toe amputations, esophageal varices, gastritis, diabetic neuropathy, and colitis who is presenting to the ED with an injury to the fourth toe, s/p amputation 6 months prior, walked into furniture 2 days ago. Area started bleeding and small open area noted ,and now with redness and swelling to the dorsum of the left foot. Low-grade fever, denies chills or rigor. Drainage to area this am. 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 PLANNER: Yes: Peripheral Neuropathy Cardiovascular: Yes: CAD, HTN, Hyperlipdemia Gastrointestinal: Yes: Ascites, Esophageal Varices, Gastritis, GI Bleed, Hemorrhoids, Other Hepatobiliary: Yes: Cirrhosis (h/o esophageal varices s/p banding, related to HERNANDEZ), Cholelithiasis (s/p lap choly), Other (PORTAL VEIN PARTIAL THROMBOSIS, HCC treated with transhepatic heat ablations at [facility]) Renal/: Yes: Renal Inusuff Heme/Onc: Yes: Anemia, Thrombocytopenia Endocrine: Yes: Diabetes Mellitus - Past Surgical History Past Surgical History: Yes: Hernia Repair, Colonoscopy, Upper Endoscopy, Amputation, Cholecystectomy - Smoking History Smoking history: Never smoked Have you smoked in the past 12 months: No Aproximately how many cigarettes per day: 0 - Alcohol/Substance Use Hx Alcohol Use: No History of Substance Use: reports: None - Social History ADL: Independent 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 [employer] History of Recent Travel: No Home Medications - Allergies Allergies/Adverse Reactions: Allergies Allergy/AdvReac Type Severity Reaction Status Date / Time Iodinated Contrast- Oral and Allergy Verified 03/28/17 15:20 IV Dye [Iodinated Contrast Media - IV Dye] - Home Medications Home Medications: Ambulatory Orders Furosemide [Lasix] 40 mg PO DAILY 07/15/16 Insulin Detemir [Levemir Flextouch] 40 unit SQ DAILY 07/15/16 Multivitamins [Multivit ([facility] Formulary)] 1 tab PO DAILY 07/15/16 Nateglinide [Starlix (Nf) -] 60 mg PO BID 07/15/16 Metformin HCl 500 mg PO BID 08/09/16 Aspirin [ASA -] 81 mg PO DAILY tab.chew 10/30/16 Lactulose (Oral Use) [Cephulac -] 20 gm PO BID #1 bottle 10/30/16 Spironolactone [Aldactone -] 50 mg PO DAILY tablet 10/30/16 Albuterol 2.5/Ipratropium 0.5 [Duoneb -] 1 amp NEB QIDR #30 amp 12/11/16 Atorvastatin Ca [Lipitor] 10 mg PO HS #30 tab 12/11/16 Insulin (Levemir) [Levemir Vial] 20 units SQ HS ml 12/11/16 Nadolol 20 mg PO DAILY #30 tab 12/11/16 Pantoprazole Sodium [Protonix] 40 mg PO DAILY #30 tab 12/11/16 Ranolazine [Ranexa] 1,000 mg PO BID #60 tab 12/11/16 Rivaroxaban [Xarelto -] 20 mg PO DAILY #30 tablet 12/11/16 Benazepril HCl [Lotensin] 20 mg PO DAILY 03/28/17 Ergocalciferol (Vitamin D2) [Vitamin D2] 50,000 unit PO DAILY 03/28/17 Family Disease History - Family Disease History Family Disease History: Diabetes: Brother (alcoholic cirrhosis), Sister, CA: Mother (breast Ca), Other: Father ( from alcohol related complications) Review of Systems - Review of Systems Constitutional: reports: Chills, Fever, Weakness Eyes: reports: No Symptoms HENT: reports: No Symptoms Neck: reports: No Symptoms Cardiovascular: reports: No Symptoms Respiratory: reports: No Symptoms Gastrointestinal: reports: No Symptoms Genitourinary: reports: No Symptoms Breasts: reports: No Symptoms Reported Musculoskeletal: reports: Other Physical Examination Vital Signs: Vital Signs Temperature 98.6 F 03/29/17 06:00 Pulse Rate 56 L 03/29/17 06:00 Respiratory Rate 18 03/29/17 06:00 Blood Pressure 105/64 03/29/17 06:00 O2 Sat by Pulse Oximetry (%) 99 03/28/17 21:00 Constitutional: Yes: Well Nourished, No Distress, Calm Cardiovascular: Yes: Regular Rate and Rhythm Respiratory: Yes: Regular Extremities: Yes: Amputation (Left toes), Erythema Peripheral Pulses WNL: No Peripheral Pulses: Left Doralis Pedis: 1+, Right Dorsalis Pedis: 2+ Wound/Incision: Yes: Open to air, Reddened Neurological: Yes: Alert, Oriented Psychiatric: Yes: Alert, Oriented Labs: CBC, BMP 03/29/17 06:35 03/29/17 06:35 Problem List - Problems (1) Cellulitis of toe, left Assessment/Plan: -seen by ID and Vascular sx -MRI LLE to r/o osteomyelitis -IV abx -IVF -repeat labs in AM -Wound Culture pending Code(s): L03.032 - CELLULITIS OF LEFT TOE (2) Diabetes mellitus, insulin dependent (IDDM), uncontrolled Assessment/Plan: -A1C pending -insulin -endocrine consult Code(s): E10.65 - TYPE 1 DIABETES MELLITUS WITH HYPERGLYCEMIA (3) Lactic acidosis Assessment/Plan: -IVF -repeat LA in AM Code(s): E87.2 - ACIDOSIS (4) Anemia Assessment/Plan: -Likely secondary to chronic disease -check b12,FA,tsh,iron profile -1 unit of prbc -repeat labs in AM Code(s): D64.9 - ANEMIA, UNSPECIFIED Assessment/Plan see problem list
[2017-03-29] MEDS ORDERED: RIVAROXABAN 10 MG TABLET PO SCH (10:45)
[2017-03-29] MEDS ORDERED: CEFTRIAXONE 1 G/50 ML PREMIX 50 ML IVPB SCH (11:00)
--- NOTE | 2017-03-29 14:08 | EKG ---
Test Reason : Blood Pressure : / mmHG Vent. Rate : 061 BPM Atrial Rate : 061 BPM P-R Int : 174 ms QRS Dur : 106 ms QT Int : 448 ms P-R-T Axes : 016 -36 014 degrees QTc Int : 450 ms NORMAL SINUS RHYTHM LEFT ANTERIOR HEMIBLOCK MINIMAL VOLTAGE CRITERIA FOR LVH, MAY BE NORMAL VARIANT SEPTAL INFARCT , AGE UNDETERMINED CANNOT BE EXCLUDED ABNORMAL ECG WHEN COMPARED WITH ECG OF CHANGES MENTIONED ABOVE REPEAT EKG IF CLINICALLY INDICATED Confirmed by JEANNE RUBI MD ([id number]) on 03/29/2017 2:08:01 PM Referred By: Confirmed By:JEANNE RUBI MD
[2017-03-29] MEDS: RIVAROXABAN 10 MG TABLET PO SCH (14:40)
--- NOTE | 2017-03-29 15:14 | PN ---
Progress Note (short form) - Note Progress Note: ID consult dictated imp/reccd 57 year old man with DM and liver cirrhosis/liver cancer cellulitis left foot drainage from prior amputation site- r/o osteo f/u cultures vancomycin cefepime MRI of foot surgery evaluation pending Problem List - Problems (1) Cellulitis Code(s): L03.90 - CELLULITIS, UNSPECIFIED Qualifiers: Site of cellulitis: extremity Site of cellulitis of extremity: toe Laterality: left Qualified Code(s): L03.032 - Cellulitis of left toe (2) Osteomyelitis Code(s): M86.9 - OSTEOMYELITIS, UNSPECIFIED
--- NOTE | 2017-03-29 16:01 | CONS ---
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 He has a history of diabetes as well. He has had multiple toe amputations, most recently the 2nd toe on his left foot about 6 months ago at [facility]. He hit the amputation site on his left foot with a walker. He was wearing socks at that time 4 days ago. The area subsequently started draining some blood, and then, he started having erythema and pain of his foot. He denied any fevers, chills, nausea, vomiting, diarrhea, or dysuria; otherwise feels well. He presented to the emergency room with these complaints, was given a dose of Zosyn, and admitted for further evaluation. He had an x-ray of the foot that was negative. PAST MEDICAL HISTORY: Extensive. It is notable for peripheral neuropathy, coronary artery disease, hypertension, hyperlipidemia, diabetes, CKD. He has a history of liver cirrhosis secondary to fatty liver. He has a history of esophageal varices status post banding, cholelithiasis, HCC treated with transhepatic heat ablations at [facility]. He reports that the liver tumors have reoccurred, and he is being [facility]. SURGICAL HISTORY: Notable for hernia repair, colonoscopy. He has lost 2 toes from his right foot, 2nd and 3rd, as well as the 2nd toe of his left foot. He has history of cholecystectomy as well as 4 coronary stents. ALLERGIES: He is allergic to IODINE. MEDICATIONS AT HOME: Include Lasix, insulin, multivitamins, Starlix, metformin, aspirin, lactulose, spironolactone, DuoNebs, Lipitor, nadolol, Protonix, Ranexa, Xarelto, Lotensin, and vitamin D. FAMILY HISTORY: Notable for diabetes, breast cancer in his mother, and alcoholic cirrhosis in his brother and father. 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 There is no history of any recent travel. He lives in the community. There is no history of any cigarette or substance use. PRIMARY MEDICAL DOCTOR: Jg Flores MD REVIEW OF SYSTEMS: Notable for the erythema and redness of the leg. To me, he denies fevers and chills. PHYSICAL EXAMINATION: General: He is an obese man in no acute distress. Vital Signs: He is afebrile; temperature is 98.7. Pulse of 51, blood pressure 101/55, respiratory rate 17. He is saturating 99% on room air. HEENT: He is normocephalic. His eyes are anicteric. He has no thrush. Neck: Supple. Lungs: Clear to auscultation. Heart: Regular rate and rhythm. Abdomen: Soft, nontender. It is protuberant. Extremities: Both is feet are warm. His left foot has erythema on the dorsum of the foot. He has some drainage from the site on his left foot of the site of the prior amputation of the 4th toe. LABORATORY DATA: His labs are notable for a white count of 6.5 today, hemoglobin 7.1, platelets are 78,000, sedimentation rate is 95. BUN is 21 and creatinine 1.2. His LFTs are normal. Cultures of the blood and the wound are pending. In summary, this is a 57-year-old man admitted with cellulitis of his foot. Difficult to know at the site of prior amputation. Appears acute in origin. Would treat him with vancomycin as well as Zosyn at this time. He was given a dose of Zosyn yesterday in the emergency room and started on ceftriaxone today. Would add vancomycin while awaiting results of his cultures. We will await surgical evaluation to see if we need to consider an MRI to rule out osteomyelitis at the amputation site. FLORENCE DAILEY M.D. [id number]
--- NOTE | 2017-03-29 17:00 | CONSULT ---
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: Peripheral Neuropathy Cardio/Vascular: Yes: CAD, HTN, Hyperlipdemia Gastrointestinal: Yes: Ascites, Esophageal Varices, Gastritis, GI Bleed, Hemorrhoids, Other Hepatobiliary: Yes: Cirrhosis (h/o esophageal varices s/p banding, related to HERNANDEZ), Cholelithiasis (s/p lap choly), Other (PORTAL VEIN PARTIAL THROMBOSIS, HCC treated with transhepatic heat ablations at [facility]) Renal/: Yes: Renal Inusuff Endocrine: Yes: Diabetes Mellitus - Past Surgical History Past Surgical History: Yes: Hernia Repair, Colonoscopy, Upper Endoscopy, Amputation, Cholecystectomy - Alcohol/Substance Use Hx Alcohol Use: No History of Substance Use: reports: None - Smoking History Smoking history: Never smoked Have you smoked in the past 12 months: No Aproximately how many cigarettes per day: 0 - Social History Usual Living Arrangement: With Spouse ADL: Independent 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 [employer] History of Recent Travel: No Home Medications - Allergies Allergies/Adverse Reactions: Allergies Allergy/AdvReac Type Severity Reaction Status Date / Time Iodinated Contrast- Oral and Allergy Verified 03/28/17 15:20 IV Dye [Iodinated Contrast Media - IV Dye] - Home Medications Home Medications: Ambulatory Orders Furosemide [Lasix] 40 mg PO DAILY 07/15/16 Insulin Detemir [Levemir Flextouch] 40 unit SQ DAILY 07/15/16 Multivitamins [Multivit ([facility] Formulary)] 1 tab PO DAILY 07/15/16 Nateglinide [Starlix (Nf) -] 60 mg PO BID 07/15/16 Metformin HCl 500 mg PO BID 08/09/16 Aspirin [ASA -] 81 mg PO DAILY tab.chew 10/30/16 Lactulose (Oral Use) [Cephulac -] 20 gm PO BID #1 bottle 10/30/16 Spironolactone [Aldactone -] 50 mg PO DAILY tablet 10/30/16 Albuterol 2.5/Ipratropium 0.5 [Duoneb -] 1 amp NEB QIDR #30 amp 12/11/16 Atorvastatin Ca [Lipitor] 10 mg PO HS #30 tab 12/11/16 Insulin (Levemir) [Levemir Vial] 20 units SQ HS ml 12/11/16 Nadolol 20 mg PO DAILY #30 tab 12/11/16 Pantoprazole Sodium [Protonix] 40 mg PO DAILY #30 tab 12/11/16 Ranolazine [Ranexa] 1,000 mg PO BID #60 tab 12/11/16 Rivaroxaban [Xarelto -] 20 mg PO DAILY #30 tablet 12/11/16 Benazepril HCl [Lotensin] 20 mg PO DAILY 03/28/17 Ergocalciferol (Vitamin D2) [Vitamin D2] 50,000 unit PO DAILY 03/28/17 Family Disease History - Family Disease History Family Disease History: Diabetes: Brother (alcoholic cirrhosis), Sister, CA: Mother (breast Ca), Other: Father ( from alcohol related complications) Physical Exam Vital Signs: Vital Signs Temperature 98.7 F 03/29/17 14:58 Pulse Rate 51 L 03/29/17 14:58 Respiratory Rate 17 03/29/17 14:58 Blood Pressure 101/55 03/29/17 14:58 O2 Sat by Pulse Oximetry (%) 99 03/29/17 11:51 Labs: CBC, BMP 03/29/17 06:35 03/29/17 06:35 Assessment/Plan Vascular Surgery Patient is a 57 year old male with significant medical hx of IDDM, CAD s/p 4 cardiac stents, HTN, chronic liver disease, liver CA (currently on waiting list for liver transplant), multiple bilateral toe amputations, esophageal varices, gastritis, diabetic neuropathy, and colitis who is presenting to the ED with an injury to the fourth toe, s/p amputation 6 months prior, walked into furniture 2 days ago. Area started bleeding and small open area noted ,and now with redness and swelling to the dorsum of the left foot. Low-grade fever, denies chills or rigor. Drainage to area this am. 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: Peripheral Neuropathy Cardiovascular: Yes: CAD, HTN, Hyperlipdemia Gastrointestinal: Yes: Ascites, Esophageal Varices, Gastritis, GI Bleed, Hemorrhoids, Other Hepatobiliary: Yes: Cirrhosis (h/o esophageal varices s/p banding, related to HERNANDEZ), Cholelithiasis (s/p lap choly), Other (PORTAL VEIN PARTIAL THROMBOSIS, HCC treated with transhepatic heat ablations at [facility]) Renal/: Yes: Renal Inusuff Heme/Onc: Yes: Anemia, Thrombocytopenia Endocrine: Yes: Diabetes Mellitus PE Head - NC/AT Lung - cTA Heart - RRR abd - soft,nt,nd ext - left foot -- cellulitis , with wound at 4th toe amp site. faint pulses DP in foot. A/P Pt well known to vascular surgery service. Pt says that he had toe amp 6m months ago. He also claims that he had a stent placed in left leg. Will order CTA of aorta with bl runoff to look at circulation. Neil Gasca DO
[2017-03-29] MEDS: VANCOMYCIN 1,250 MG in DEXTROSE 5%-WATER - 250 ML IVPB SCH (17:35)
[2017-03-29] MEDS: CEFEPIME 1 GM in DEXTROSE 5%-WATER - 100 ML IVPB SCH (17:35)
[2017-03-29] MEDS: SODIUM CHLORIDE 1,000 ML IV SCH (17:35)
[2017-03-29] MEDS ORDERED: CEFEPIME HCL 1 GM VIAL (RESTRICTED TO ID) IVPB SCH (18:00)
[2017-03-29] MEDS: ATORVASTATIN CA 10 MG TABLET (FP) PO SCH (22:07)
[2017-03-30] MEDS: ACETAMINOPHEN 325 MG TABLET (FP) PO PRN ×2 (00:19→22:55)
[2017-03-30] MEDS: CEFEPIME 1 GM in DEXTROSE 5%-WATER - 100 ML IVPB SCH ×3 (03:11→18:05)
[2017-03-30] MEDS: SODIUM CHLORIDE 1,000 ML IV SCH ×2 (04:41→18:05)
[2017-03-30] MEDS: VANCOMYCIN 1,250 MG in DEXTROSE 5%-WATER - 250 ML IVPB SCH ×2 (04:41→16:17)
[2017-03-30] MEDS: INSULIN SLIDING SCALE (NOVOLOG) 1 VIAL SQ SCH ×4 (06:27→22:26)
[2017-03-30] MEDS: metFORMIN HCL 500 MG TABLET (FP) PO SCH ×2 (06:29→16:16)
[2017-03-30] MEDS: INSULIN DETEMIR 100 UNITS/ML MDV SQ SCH ×2 (06:30→22:25)
[2017-03-30] MEDS ORDERED: INSULIN DETEMIR 100 UNITS/ML MDV SQ ONE (07:01)
[2017-03-30] MEDS ORDERED: INSULIN (NOVOLOG) ASPART 100 UNITS/ML 10ML VIAL ONE (07:01)
[2017-03-30 08:19] LABS: MCH 27.1 pg (25.7-33.7); MCHC 33.2 g/dl (32.0-35.9); MEAN CELL VOLUME 81.8 fl (80-96); MEAN PLT VOLUME 8.1 fl (7.5-11.1); PLATELET COUNT 92 K/MM3 (134-434); RDW 18.2 % (11.9-15.9); WHITE BLOOD COUNT 7.6 K/mm3 (4.0-10.0)
[2017-03-30 08:56] LABS: ANION GAP 7 (8-16); CALCIUM 7.6 mg/dL (8.5-10.1); CO2 22 mmol/L (21-32); CREATININE 1.3 mg/dL (0.7-1.3); GLUCOSE,RANDOM 113 mg/dL (74-106)
[2017-03-30 09:07] LABS: FERRITIN 30.22 ng/ml (16.4-293.9)
[2017-03-30] MEDS ORDERED: RANOLAZINE E.R. 500 MG TABLET (FP) ONE ×2 (10:03→21:24)
[2017-03-30] MEDS: SPIRONOLACTONE 25 MG TABLET (FP) PO SCH (10:09)
[2017-03-30] MEDS: FUROSEMIDE 40 MG TABLET (FP) PO SCH (10:09)
[2017-03-30] MEDS: RANOLAZINE E.R. 1,000 MG TABLET (FP) PO SCH ×2 (10:09→22:25)
[2017-03-30] MEDS: RIVAROXABAN 10 MG TABLET PO SCH (10:10)
[2017-03-30] MEDS: NADOLOL 40 MG TABLET (FP) PO SCH (10:10)
[2017-03-30] MEDS: LISINOPRIL 10 MG TABLET (FP) PO SCH (10:10)
[2017-03-30] MEDS: PANTOPRAZOLE 40 MG TABLET (FP) PO SCH (10:10)
[2017-03-30] MEDS: ASPIRIN 81 MG CHEWABLE TABLETS PO SCH (10:10)
--- NOTE | 2017-03-30 11:01 | PN ---
Progress Note, Physician - Current Medication List Current Medications: Active Medications Acetaminophen (Tylenol -) 650 mg PO Q6H PRN PRN Reason: FEVER OR PAIN Last Admin: 03/30/17 00:19 Dose: 650 mg Albuterol/Ipratropium (Duoneb -) 1 amp NEB Q6H PRN PRN Reason: SHORTNESS OF BREATH Aspirin (Asa -) 81 mg PO DAILY [facility] Last Admin: 03/30/17 10:10 Dose: 81 mg Atorvastatin Calcium (Lipitor -) 10 mg PO HS [facility] Last Admin: 03/29/17 22:07 Dose: 10 mg Furosemide (Lasix -) 40 mg PO DAILY [facility] Last Admin: 03/30/17 10:09 Dose: 40 mg Vancomycin HCl 1,250 mg/ (Dextrose) 250 mls @ 166.667 mls/hr IVPB Q12H J CARLOS PRN Reason: Protocol Last Admin: 03/30/17 04:41 Dose: 166.667 mls/hr Cefepime HCl 1 gm/ Dextrose 100 mls @ 200 mls/hr IVPB Q8H-IV J CARLOS Last Admin: 03/30/17 10:13 Dose: 200 mls/hr Sodium Chloride (Normal Saline -) 1,000 mls @ 125 mls/hr IV ASDIR [facility] Last Admin: 03/30/17 04:41 Dose: 125 mls/hr Insulin Aspart (Novolog Vial Sliding Scale -) 1 vial SQ ACHS J CARLOS PRN Reason: Protocol Last Admin: 03/30/17 06:27 Dose: Not Given Insulin Detemir (Levemir Vial) 40 units SQ HS [facility] Last Admin: 03/29/17 22:08 Dose: 40 units Insulin Detemir (Levemir Vial) 20 units SQ AM [facility] Last Admin: 03/30/17 06:30 Dose: 20 units Lactulose (Cephulac (Oral Use)) 20 gm PO TID PRN PRN Reason: CONSTIPATION Lisinopril (Prinivil) 10 mg PO DAILY [facility] Last Admin: 03/30/17 10:10 Dose: 10 mg Metformin HCl (Glucophage -) 500 mg PO BID@0700,1630 [facility] Last Admin: 03/30/17 06:29 Dose: 500 mg Nadolol (Corgard -) 40 mg PO DAILY [facility] Last Admin: 03/30/17 10:10 Dose: 40 mg Pantoprazole Sodium (Protonix -) 40 mg PO DAILY [facility] Last Admin: 03/30/17 10:10 Dose: 40 mg Ranolazine (Ranexa -) 1,000 mg PO BID [facility] Last Admin: 03/30/17 10:09 Dose: 1,000 mg Rivaroxaban (Xarelto -) 10 mg PO DAILY [facility] Last Admin: 03/30/17 10:10 Dose: 10 mg Spironolactone (Aldactone -) 25 mg PO DAILY [facility] Last Admin: 03/30/17 10:09 Dose: 25 mg - Objective Vital Signs: Vital Signs Temperature 98.3 F 03/30/17 06:27 Pulse Rate 53 L 03/30/17 06:27 Respiratory Rate 18 03/30/17 06:27 Blood Pressure 97/50 03/30/17 06:27 O2 Sat by Pulse Oximetry (%) 99 03/29/17 21:00 Cardiovascular: Yes: Regular Rate and Rhythm Respiratory: Yes: Regular, CTA Bilaterally Gastrointestinal: Yes: Normal Bowel Sounds, Soft Edema: Yes Wound/Incision: Yes: Reddened Labs: CBC, BMP 03/30/17 06:50 03/30/17 06:50 Assessment/Plan - Problems (1) Cellulitis of toe, left Assessment/Plan: -seen by ID and Vascular sx -MRI LLE to r/o osteomyelitis -IV abx -IVF -repeat labs in AM -Wound Culture pending Code(s): L03.032 - CELLULITIS OF LEFT TOE (2) Diabetes mellitus, insulin dependent (IDDM), uncontrolled Assessment/Plan: -A1C pending -insulin -endocrine consult Code(s): E10.65 - TYPE 1 DIABETES MELLITUS WITH HYPERGLYCEMIA (3) Lactic acidosis Assessment/Plan: -IVF -repeat LA in AM Code(s): E87.2 - ACIDOSIS (4) Anemia Assessment/Plan: -Likely secondary to chronic disease -check b12,FA,tsh,iron profile -1 unit of prbc -repeat labs in AM Code(s): D64.9 - ANEMIA, UNSPECIFIED
--- NOTE | 2017-03-30 11:34 | PN ---
Progress Note (short form) - Note Progress Note: Vascular Surgery Left foot ulcer with celluilitis Cr rising to 1.3. I cancelled the CTA PvR/FARHEEN's ordered. Please hydrate incase pt needs angiogram. Neil monge DO
[2017-03-30] MEDS: ATORVASTATIN CA 10 MG TABLET (FP) PO SCH (22:25)
--- NOTE | 2017-03-31 00:39 | CONSULT ---
Consult Consult Specialty:: endocrine Referred by:: dr.amir new Reason for Consultation:: diabetes mellitus complication - History of Present Illness Chief Complaint: foot infection History of Present Illness: 57 year old male with significant medical hx of IDDM, CAD s/p 4 cardiac stents, HTN, chronic liver disease, liver CA (currently on waiting list for liver transplant), multiple bilateral toe amputations, esophageal varices, gastritis, diabetic neuropathy, and colitis who is presenting to the ED with an injury to the fourth toe, s/p amputation 6 months prior, walked into furniture 2 days ago. 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 [email or web address] History of Recent Travel: No Home Medications - Allergies Allergies/Adverse Reactions: Allergies Allergy/AdvReac Type Severity Reaction Status Date / Time Iodinated Contrast- Oral and Allergy Verified 03/28/17 15:20 IV Dye [Iodinated Contrast Media - IV Dye] - Home Medications Home Medications: Ambulatory Orders Furosemide [Lasix] 40 mg PO DAILY 07/15/16 Insulin Detemir [Levemir Flextouch] 40 unit SQ DAILY 07/15/16 Multivitamins [Multivit ([facility] Formul[facility])] 1 tab PO DAILY 07/15/16 Nateglinide [Starlix (Nf) -] 60 mg PO BID 07/15/16 Metformin HCl 500 mg PO BID 08/09/16 Aspirin [ASA -] 81 mg PO DAILY tab.chew 10/30/16 Lactulose (Oral Use) [Cephulac -] 20 gm PO BID #1 bottle 10/30/16 Spironolactone [Aldactone -] 50 mg PO DAILY tablet 10/30/16 Albuterol 2.5/Ipratropium 0.5 [Duoneb -] 1 amp NEB QIDR #30 amp 12/11/16 Atorvastatin Ca [Lipitor] 10 mg PO HS #30 tab 12/11/16 Insulin (Levemir) [Levemir Vial] 20 units SQ HS ml 12/11/16 Nadolol 20 mg PO DAILY #30 tab 12/11/16 Pantoprazole Sodium [Protonix] 40 mg PO DAILY #30 tab 12/11/16 Ranolazine [Ranexa] 1,000 mg PO BID #60 tab 12/11/16 Rivaroxaban [Xarelto -] 20 mg PO DAILY #30 tablet 12/11/16 Benazepril HCl [Lotensin] 20 mg PO DAILY 03/28/17 Ergocalciferol (Vitamin D2) [Vitamin D2] 50,000 unit PO DAILY 03/28/17 Family Disease History - Family Disease History Family Disease History: Diabetes: Brother (alcoholic cirrhosis), Sister, CA: Mother (breast Ca), Other: Father ( from alcohol related complications) Review of Systems - Review of Systems Constitutional: reports: Lethargy Eyes: reports: No Symptoms HENT: reports: No Symptoms Neck: reports: No Symptoms Cardiovascular: reports: Shortness of Breath Respiratory: reports: Exercise Intolerance Gastrointestinal: reports: Bloating Genitourinary: reports: No Symptoms Breasts: reports: No Symptoms Reported Musculoskeletal: reports: Joint Swelling, Muscle Pain, Muscle Cramps Integumentary: reports: No Symptoms Neurological: reports: Numbness, Tremors, Unsteady Gait, Weakness Endocrine: reports: Excessive Sweating Psychiatric: reports: Anxiety Physical Exam Vital Signs: Vital Signs Temperature 97.0 F L 03/30/17 22:05 Pulse Rate 68 03/30/17 22:05 Respiratory Rate 18 03/30/17 22:05 Blood Pressure 130/80 03/30/17 22:05 O2 Sat by Pulse Oximetry (%) 99 03/30/17 21:00 Constitutional: Yes: Anxious Eyes: Yes: EOM Intact HENT: Yes: Normocephalic Neck: Yes: Trachea Midline Cardiovascular: Yes: Regular Rate and Rhythm Respiratory: Yes: CTA Bilaterally Gastrointestinal: Yes: Normal Bowel Sounds ...Rectal Exam: Yes: Deferred Renal/: Yes: WNL Breast(s): Yes: WNL Musculoskeletal: Yes: Joint Stiffness, Joint Swelling, Muscle Weakness Edema: Yes Edema: LLE: 1+, RLE: 1+ Integumentary: Yes: Venous Stasis Changes Wound/Incision: Yes: Draining, Reddened Neurological: Yes: Alert Psychiatric: Yes: Alert, Oriented Labs: CBC, BMP 03/30/17 06:50 03/30/17 06:50 Problem List - Problems (1) Type 2 diabetes mellitus with diabetic polyneuropathy Code(s): E11.42 - TYPE 2 DIABETES MELLITUS WITH DIABETIC POLYNEUROPATHY (2) Cellulitis Code(s): L03.90 - CELLULITIS, UNSPECIFIED Qualifiers: Site of cellulitis of extremity: toe Laterality: unspecified laterality (3) Cellulitis of toe, left Code(s): L03.032 - CELLULITIS OF LEFT TOE (4) Osteomyelitis Code(s): M86.9 - OSTEOMYELITIS, UNSPECIFIED (5) Ascites due to alcoholic cirrhosis Code(s): K70.31 - ALCOHOLIC CIRRHOSIS OF LIVER WITH ASCITES Assessment/Plan Current Active Problems Cellulitis (Acute) Cellulitis of toe, left (Acute) Lactic acidosis (Acute) Osteomyelitis (Acute) Type 2 diabetes mellitus with diabetic polyneuropathy (Acute) Abnormal Lab Results 03/29/17 03/30/17 03/30/17 06:35 06:50 06:50 RBC 2.94 L Hgb 8.0 L D Hct 24.1 L RDW 18.2 H Plt Count 92 L Sodium 133 L Anion Gap 7 L BUN 21 H Random Glucose 113 H D Hemoglobin A1c % 7.2 H D Calcium 7.6 L Laboratory Results - last 24 hr 03/29/17 03/30/17 03/30/17 06:35 06:01 06:50 WBC 7.6 RBC 2.94 L Hgb 8.0 L D Hct 24.1 L MCV 81.8 MCH 27.1 MCHC 33.2 RDW 18.2 H Plt Count 92 L MPV 8.1 Sodium Potassium Chloride Carbon Dioxide Anion Gap BUN Creatinine POC Glucometer 146 Random Glucose Hemoglobin A1c % 7.2 H D Lactic Acid Calcium Ferritin Vitamin B12 Serum Folate Vancomycin Pre-Dose 03/30/17 03/30/17 03/30/17 06:50 06:50 08:09 WBC RBC Hgb Hct MCV MCH MCHC RDW Plt Count MPV Sodium 133 L Potassium 4.6 Chloride 104 Carbon Dioxide 22 Anion Gap 7 L BUN 21 H Creatinine 1.3 POC Glucometer Random Glucose 113 H D Hemoglobin A1c % Lactic Acid 1.8 Calcium 7.6 L Ferritin 30.220 Vitamin B12 671 D Serum Folate 13 Vancomycin Pre-Dose 03/30/17 03/30/17 03/30/17 11:21 14:45 16:14 WBC RBC Hgb Hct MCV MCH MCHC RDW Plt Count MPV Sodium Potassium Chloride Carbon Dioxide Anion Gap BUN Creatinine POC Glucometer 222 200 Random Glucose Hemoglobin A1c % Lactic Acid Calcium Ferritin Vitamin B12 Serum Folate Vancomycin Pre-Dose 5.770 03/30/17 21:15 WBC RBC Hgb Hct MCV MCH MCHC RDW Plt Count MPV Sodium Potassium Chloride Carbon Dioxide Anion Gap BUN Creatinine POC Glucometer 198 Random Glucose Hemoglobin A1c % Lactic Acid Calcium Ferritin Vitamin B12 Serum Folate Vancomycin Pre-Dose plan: bgm qid novolog insulin coverage dose Current Medications Generic Name Dose Route Start Last Admin Trade Name Freq PRN Reason Stop Dose Admin Acetaminophen 650 mg 03/29/17 10:42 03/30/17 22:55 Tylenol - PO 650 mg Q6H PRN Administration FEVER OR PAIN Albuterol/Ipratropium 1 amp 03/28/17 21:03 Duoneb - NEB Q6H PRN SHORTNESS OF BREATH Aspirin 81 mg 03/29/17 10:00 03/30/17 10:10 Asa - PO 81 mg DAILY J CARLOS Administration Atorvastatin Calcium 10 mg 03/28/17 21:15 03/30/17 22:25 Lipitor - PO 10 mg HS J CARLOS Administration Furosemide 40 mg 03/29/17 10:00 03/30/17 10:09 Lasix - PO 40 mg DAILY J CARLOS Administration Vancomycin HCl 1,250 mg/ 250 mls @ 166.667 mls/hr 03/29/17 16:00 03/30/17 16: 17 Dextrose IVPB 166.667 mls/hr Q12H J CARLOS Administration Protocol Cefepime HCl 1 gm/ Dextrose 100 mls @ 200 mls/hr 03/29/17 18:00 03/30/17 18: 05 IVPB 200 mls/hr Q8H-IV J CARLOS Administration Sodium Chloride 1,000 mls @ 125 mls/hr 03/29/17 16:49 03/30/17 18:05 Normal Saline - IV 125 mls/hr ASDIR J CARLOS Administration Insulin Aspart 1 vial 03/28/17 21:15 03/30/17 22:26 Novolog Vial Sliding Scale - SQ 2 units ACHS J CARLOS Administration Protocol Insulin Detemir 40 units 03/28/17 21:15 03/30/17 22:25 Levemir Vial SQ 40 units HS J CARLOS Administration Insulin Detemir 20 units 03/29/17 07:00 03/30/17 06:30 Levemir Vial SQ 20 units AM J CARLOS Administration Lactulose 20 gm 03/28/17 21:03 Cephulac (Oral Use) PO TID PRN CONSTIPATION Lisinopril 10 mg 03/29/17 10:00 03/30/17 10:10 Prinivil PO 10 mg DAILY J CARLOS Administration Metformin HCl 500 mg 03/28/17 21:15 03/30/17 16:16 Glucophage - PO 500 mg BID@0700,1630 J CARLOS Administration Nadolol 40 mg 03/29/17 10:00 03/30/17 10:10 Corgard - PO 40 mg DAILY J CARLOS Administration Pantoprazole Sodium 40 mg 03/29/17 10:00 03/30/17 10:10 Protonix - PO 40 mg DAILY J CARLOS Administration Ranolazine 1,000 mg 03/28/17 21:15 03/30/17 22:25 Ranexa - PO 1,000 mg BID J CARLOS Administration Rivaroxaban 10 mg 03/29/17 12:15 03/30/17 10:10 Xarelto - PO 10 mg DAILY J CARLOS Administration Spironolactone 25 mg 03/29/17 10:00 03/30/17 10:09 Aldactone - PO 25 mg DAILY J CARLOS Administration Laboratory Tests 03/29/17 06:35 Hemoglobin A1c % 7.2 H D
[2017-03-31] MEDS: CEFEPIME 1 GM in DEXTROSE 5%-WATER - 100 ML IVPB SCH ×2 (03:00→10:37)
[2017-03-31] MEDS ORDERED: PT OWN MED DRAWER 7, Y5N ONE ×3 (03:42→17:24)
[2017-03-31] MEDS: VANCOMYCIN 1,250 MG in DEXTROSE 5%-WATER - 250 ML IVPB SCH (03:45)
[2017-03-31] MEDS: INSULIN DETEMIR 100 UNITS/ML MDV SQ SCH ×2 (06:45→21:15)
[2017-03-31] MEDS: metFORMIN HCL 500 MG TABLET (FP) PO SCH (06:45)
[2017-03-31] MEDS: INSULIN SLIDING SCALE (NOVOLOG) 1 VIAL SQ SCH ×4 (06:50→21:21)
[2017-03-31 08:07] LABS: SERUM IRON 205 ug/dL (38-169); TOTAL IRON BINDING CAPACITY < 222 ug/dL (250-450); UIBC < 17 ug/dL (111-343)
[2017-03-31] MEDS ORDERED: RANOLAZINE E.R. 500 MG TABLET (FP) ONE ×2 (10:05→21:00)
--- NOTE | 2017-03-31 10:33 | PN ---
Progress Note (short form) - Note Progress Note: Vascular Surgery PVR/FARHEEN reviewed. looks like pt has bl infrapopliteal disease. Pt had recent angiogram, angioplasty with stent placement 6 months ago at outside institution. Can do arterial duplex to check patency of stent. Will order duplex. Cannot order CTA until pt's creatinine comes down. If pt needs angiogram, can do with CO2 to give no contrast load. Awaiting official read of MRI. Neil Gasca DO
[2017-03-31] MEDS: LISINOPRIL 10 MG TABLET (FP) PO SCH (10:35)
[2017-03-31] MEDS: SPIRONOLACTONE 25 MG TABLET (FP) PO SCH (10:35)
[2017-03-31] MEDS: ASPIRIN 81 MG CHEWABLE TABLETS PO SCH (10:36)
[2017-03-31] MEDS: PANTOPRAZOLE 40 MG TABLET (FP) PO SCH (10:37)
[2017-03-31] MEDS: NADOLOL 40 MG TABLET (FP) PO SCH (10:37)
[2017-03-31] MEDS: RANOLAZINE E.R. 1,000 MG TABLET (FP) PO SCH ×2 (10:37→21:16)
[2017-03-31] MEDS: FUROSEMIDE 40 MG TABLET (FP) PO SCH (10:37)
[2017-03-31] MEDS: RIVAROXABAN 10 MG TABLET PO SCH (10:38)
--- NOTE | 2017-03-31 11:17 | PN ---
Progress Note (short form) - Note Progress Note: ID Vascular surgery note seen Dr Gasca Current antibiotics Vancomycin and Cefepime per Dr Casas Selected Entries 03/31/17 06:21 Temperature 97.9 F Pulse Rate 60 Respiratory 17 Rate Blood Pressure 101/55 Laboratory Tests 03/28/17 03/30/17 16:40 06:50 WBC 7.6 Hgb 8.0 L D ESR 95 H Microbiology 03/28/17 16:17 Toe - Left Second Gram Stain - Final 03/29/17 15:00 Wound Wound Culture - Preliminary Presumptive Mssa (Pbp2a Neg) Staphylococcus Coagulase Neg 03/28/17 16:17 Toe - Left Second Wound Culture - Preliminary Presumptive Mssa (Pbp2a Neg) Assessment Ruling out osteo myelitis MSSA Plan Change to Cefazolin Melanie SÁNCHEZ
--- NOTE | 2017-03-31 11:21 | PN ---
Progress Note, Physician Chief Complaint: sitting in chair oob - Current Medication List Current Medications: Active Medications Acetaminophen (Tylenol -) 650 mg PO Q6H PRN PRN Reason: FEVER OR PAIN Last Admin: 03/30/17 22:55 Dose: 650 mg Albuterol/Ipratropium (Duoneb -) 1 amp NEB Q6H PRN PRN Reason: SHORTNESS OF BREATH Aspirin (Asa -) 81 mg PO DAILY [facility] Last Admin: 03/31/17 10:36 Dose: 81 mg Atorvastatin Calcium (Lipitor -) 10 mg PO HS [facility] Last Admin: 03/30/17 22:25 Dose: 10 mg Furosemide (Lasix -) 40 mg PO DAILY [facility] Last Admin: 03/31/17 10:37 Dose: 40 mg Vancomycin HCl 1,250 mg/ (Dextrose) 250 mls @ 166.667 mls/hr IVPB Q12H J CARLOS PRN Reason: Protocol Last Admin: 03/31/17 03:45 Dose: 166.667 mls/hr Cefepime HCl 1 gm/ Dextrose 100 mls @ 200 mls/hr IVPB Q8H-IV J CARLOS Last Admin: 03/31/17 10:37 Dose: 200 mls/hr Sodium Chloride (Normal Saline -) 1,000 mls @ 125 mls/hr IV ASDIR [facility] Last Admin: 03/30/17 18:05 Dose: 125 mls/hr Insulin Aspart (Novolog Vial Sliding Scale -) 1 vial SQ ACHS J CARLOS PRN Reason: Protocol Last Admin: 03/31/17 06:50 Dose: 4 units Insulin Detemir (Levemir Vial) 40 units SQ HS [facility] Last Admin: 03/30/17 22:25 Dose: 40 units Insulin Detemir (Levemir Vial) 20 units SQ AM [facility] Last Admin: 03/31/17 06:45 Dose: 20 units Lactulose (Cephulac (Oral Use)) 20 gm PO TID PRN PRN Reason: CONSTIPATION Lisinopril (Prinivil) 10 mg PO DAILY [facility] Last Admin: 03/31/17 10:35 Dose: 10 mg Metformin HCl (Glucophage -) 500 mg PO BID@0700,1630 [facility] Last Admin: 03/31/17 06:45 Dose: 500 mg Nadolol (Corgard -) 40 mg PO DAILY [facility] Last Admin: 03/31/17 10:37 Dose: 40 mg Pantoprazole Sodium (Protonix -) 40 mg PO DAILY [facility] Last Admin: 03/31/17 10:37 Dose: 40 mg Ranolazine (Ranexa -) 1,000 mg PO BID [facility] Last Admin: 03/31/17 10:37 Dose: 1,000 mg Rivaroxaban (Xarelto -) 10 mg PO DAILY [facility] Last Admin: 03/31/17 10:38 Dose: 10 mg Spironolactone (Aldactone -) 25 mg PO DAILY [facility] Last Admin: 03/31/17 10:35 Dose: 25 mg - Objective Vital Signs: Vital Signs Temperature 97.9 F 03/31/17 06:21 Pulse Rate 60 03/31/17 06:21 Respiratory Rate 17 03/31/17 06:21 Blood Pressure 101/55 03/31/17 06:21 O2 Sat by Pulse Oximetry (%) 99 03/30/17 21:00 Constitutional: Yes: Calm Cardiovascular: Yes: Regular Rate and Rhythm, S1, S2 Respiratory: Yes: CTA Bilaterally Gastrointestinal: Yes: Normal Bowel Sounds, Ascites, Distention Extremities: Yes: Erythema, Other (left foot erythema, swollen,amputated toe) Edema: Yes Neurological: Yes: Alert, Oriented Labs: CBC, BMP 03/30/17 06:50 03/30/17 06:50 Problem List - Problems (1) Cellulitis Assessment/Plan: MRI consistent with osteo iv cefazolin Microbiology 03/28/17 16:17 Toe - Left Second Gram Stain - Final 03/29/17 15:00 Wound Wound Culture - Preliminary Presumptive Mssa (Pbp2a Neg) Staphylococcus Coagulase Neg 03/28/17 16:17 Toe - Left Second Wound Culture - Preliminary Presumptive Mssa (Pbp2a Neg) Code(s): L03.90 - CELLULITIS, UNSPECIFIED Qualifiers: Site of cellulitis of extremity: toe Laterality: unspecified laterality (2) Type 2 diabetes mellitus with diabetic polyneuropathy Assessment/Plan: hgba1c noted insulin endocrine consult noted Code(s): E11.42 - TYPE 2 DIABETES MELLITUS WITH DIABETIC POLYNEUROPATHY (3) Abdominal distension Assessment/Plan: liver cirrhosis/ ascites Code(s): R14.0 - ABDOMINAL DISTENSION (GASEOUS) (4) Ascites Assessment/Plan: secondary to cirrhosis abdominal sono Code(s): R18.8 - OTHER ASCITES Qualifiers: Ascites type: other type Qualified Code(s): R18.8 - Other ascites (5) CAD (coronary artery disease) Assessment/Plan: asa,statin Code(s): I25.10 - ATHSCL HEART DISEASE OF [place] CORONARY ARTERY W/O ANG PCTRS
[2017-03-31] MEDS: SODIUM CHLORIDE 1,000 ML IV SCH ×3 (11:46→21:14)
[2017-03-31] MEDS: ACETAMINOPHEN 325 MG TABLET (FP) PO PRN ×2 (12:10→19:47)
[2017-03-31] MEDS: CEFAZOLIN 1 GM in DEXTROSE 5%-WATER - 50 ML IVPB SCH (18:04)
[2017-03-31] MEDS ORDERED: INSULIN (NOVOLOG) ASPART 100 UNITS/ML 10ML VIAL ONE (21:00)
[2017-03-31] MEDS: ATORVASTATIN CA 10 MG TABLET (FP) PO SCH (21:16)
[2017-04-01] MEDS: CEFAZOLIN 1 GM in DEXTROSE 5%-WATER - 50 ML IVPB SCH ×2 (03:00→10:39)
[2017-04-01] MEDS: SODIUM CHLORIDE 1,000 ML IV SCH ×3 (05:01→18:19)
[2017-04-01] MEDS: INSULIN DETEMIR 100 UNITS/ML MDV SQ SCH ×2 (06:05→21:33)
[2017-04-01] MEDS: INSULIN SLIDING SCALE (NOVOLOG) 1 VIAL SQ SCH ×4 (06:06→21:32)
[2017-04-01] MEDS ORDERED: INSULIN DETEMIR 100 UNITS/ML MDV SQ ONE (06:41)
[2017-04-01] MEDS ORDERED: INSULIN (NOVOLOG) ASPART 100 UNITS/ML 10ML VIAL ONE ×2 (06:42→18:25)
[2017-04-01] MEDS ORDERED: RANOLAZINE E.R. 500 MG TABLET (FP) ONE ×2 (10:34→21:15)
[2017-04-01] MEDS ORDERED: PT OWN MED DRAWER 7, Y5N ONE ×2 (10:35→15:14)
[2017-04-01] MEDS: FUROSEMIDE 40 MG TABLET (FP) PO SCH (10:37)
[2017-04-01] MEDS: NADOLOL 40 MG TABLET (FP) PO SCH (10:38)
[2017-04-01] MEDS: RIVAROXABAN 10 MG TABLET PO SCH (10:38)
[2017-04-01] MEDS: ASPIRIN 81 MG CHEWABLE TABLETS PO SCH (10:38)
[2017-04-01] MEDS: SPIRONOLACTONE 25 MG TABLET (FP) PO SCH (10:38)
[2017-04-01] MEDS: LISINOPRIL 10 MG TABLET (FP) PO SCH (10:38)
[2017-04-01] MEDS: PANTOPRAZOLE 40 MG TABLET (FP) PO SCH (10:38)
[2017-04-01] MEDS: RANOLAZINE E.R. 1,000 MG TABLET (FP) PO SCH ×2 (10:39→21:33)
[2017-04-01] MEDS: ACETAMINOPHEN 325 MG TABLET (FP) PO PRN (10:43)
[2017-04-01] MEDS ORDERED: ceFAZolin 2 GRAM PREMIX BAG IVPB SCH (14:00)
--- NOTE | 2017-04-01 14:09 | PN ---
Progress Note (short form) - Note Progress Note: continued erythema of the foot less pain Vital Signs Period Temp Pulse Resp BP Sys/Ferrell Pulse Ox Last 24 Hr 97.8 F-98.8 F 48-62 16-20 100-123/57-67 98 cor-rrr lungs clear abd soft, nt ext erythema of the dorsum of the foot CBC, BMP 03/30/17 06:50 03/30/17 06:50 Microbiology 03/28/17 16:17 Toe - Left Second Gram Stain - Final 03/28/17 16:17 Toe - Left Second Wound Culture - Final Staphylococcus Aureus 03/28/17 16:05 Blood - Peripheral Venous Blood Culture - Preliminary NO GROWTH OBTAINED AFTER 72 HOURS, INCUBATION TO CONTINUE FOR 2 DAYS. 03/28/17 16:05 Blood - Peripheral Venous Blood Culture - Preliminary NO GROWTH OBTAINED AFTER 72 HOURS, INCUBATION TO CONTINUE FOR 2 DAYS. 03/29/17 15:00 Wound Gram Stain - Final 03/29/17 15:00 Wound Wound Culture - Final Staphylococcus Aureus Staphylococcus Coagulase Neg MRI-fourth toe osteo Laboratory Tests 03/28/17 03/29/17 16:40 10:05 ESR 95 H C-Reactive Protein 8.4 H D imp/reccd 57 year old man with DM and liver cirrhosis/liver cancer cellulitis osteomyelitis MSSA continue cefazolin vascular surgery f/u will need [place] [facility] iv antibiotics d/w Dr Ag Problem List - Problems (1) Cellulitis Code(s): L03.90 - CELLULITIS, UNSPECIFIED Qualifiers: Site of cellulitis of extremity: toe Laterality: unspecified laterality (2) Osteomyelitis Code(s): M86.9 - OSTEOMYELITIS, UNSPECIFIED
--- NOTE | 2017-04-01 14:32 | PN ---
Progress Note, Physician Chief Complaint: in bed no distress - Current Medication List Current Medications: Active Medications Acetaminophen (Tylenol -) 650 mg PO Q6H PRN PRN Reason: FEVER OR PAIN Last Admin: 04/01/17 10:43 Dose: 650 mg Albuterol/Ipratropium (Duoneb -) 1 amp NEB Q6H PRN PRN Reason: SHORTNESS OF BREATH Aspirin (Asa -) 81 mg PO DAILY [facility] Last Admin: 04/01/17 10:38 Dose: 81 mg Atorvastatin Calcium (Lipitor -) 10 mg PO HS [facility] Last Admin: 03/31/17 21:16 Dose: 10 mg Furosemide (Lasix -) 40 mg PO DAILY [facility] Last Admin: 04/01/17 10:37 Dose: 40 mg Sodium Chloride (Normal Saline -) 1,000 mls @ 125 mls/hr IV ASDIR [facility] Last Admin: 04/01/17 05:01 Dose: 125 mls/hr Cefazolin Sodium/Dextrose (Ancef 2 Gm Premixed Ivpb -) 2 gm in 50 mls @ 100 mls /hr IVPB Q8H-IV J CARLOS Insulin Aspart (Novolog Vial Sliding Scale -) 1 vial SQ ACHS [facility] PRN Reason: Protocol Last Admin: 04/01/17 12:16 Dose: Not Given Insulin Detemir (Levemir Vial) 40 units SQ HS [facility] Last Admin: 03/31/17 21:15 Dose: 40 units Insulin Detemir (Levemir Vial) 20 units SQ AM [facility] Last Admin: 04/01/17 06:05 Dose: Not Given Lactulose (Cephulac (Oral Use)) 20 gm PO TID PRN PRN Reason: CONSTIPATION Lisinopril (Prinivil) 10 mg PO DAILY [facility] Last Admin: 04/01/17 10:38 Dose: 10 mg Nadolol (Corgard -) 40 mg PO DAILY [facility] Last Admin: 04/01/17 10:38 Dose: 40 mg Pantoprazole Sodium (Protonix -) 40 mg PO DAILY [facility] Last Admin: 04/01/17 10:38 Dose: 40 mg Ranolazine (Ranexa -) 1,000 mg PO BID [facility] Last Admin: 04/01/17 10:39 Dose: 1,000 mg Rivaroxaban (Xarelto -) 10 mg PO DAILY [facility] Last Admin: 04/01/17 10:38 Dose: 10 mg Spironolactone (Aldactone -) 25 mg PO DAILY J CARLOS Last Admin: 04/01/17 10:38 Dose: 25 mg - Objective Vital Signs: Vital Signs Temperature 98.4 F 04/01/17 06:04 Pulse Rate 48 L 04/01/17 06:04 Respiratory Rate 18 04/01/17 06:04 Blood Pressure 123/67 04/01/17 06:04 O2 Sat by Pulse Oximetry (%) 98 03/31/17 21:00 Constitutional: Yes: Calm Cardiovascular: Yes: Regular Rate and Rhythm, S1, S2 Respiratory: Yes: CTA Bilaterally Gastrointestinal: Yes: Soft, Ascites, Distention Extremities: Yes: Erythema, Other (left foot dorsum) Neurological: Yes: Alert, Oriented Labs: CBC, BMP 03/30/17 06:50 03/30/17 06:50 Problem List - Problems (1) Osteomyelitis Assessment/Plan: will need a picc line for hr associate abx- can be placed early next week Code(s): M86.9 - OSTEOMYELITIS, UNSPECIFIED (2) Cellulitis Assessment/Plan: MRI consistent with osteo iv cefazolin- Microbiology 03/28/17 16:17 Toe - Left Second Gram Stain - Final 03/29/17 15:00 Wound Wound Culture - Preliminary Presumptive Mssa (Pbp2a Neg) Staphylococcus Coagulase Neg 03/28/17 16:17 Toe - Left Second Wound Culture - Preliminary Presumptive Mssa (Pbp2a Neg) Microbiology 03/29/17 15:00 Wound Gram Stain - Final 03/29/17 15:00 Wound Wound Culture - Final Staphylococcus Aureus Staphylococcus Coagulase Neg 03/28/17 16:17 Toe - Left Second Gram Stain - Final 03/28/17 16:17 Toe - Left Second Wound Culture - Final Staphylococcus Aureus will need picc line and nursing home abx Qualifiers: Site of cellulitis of extremity: toe Laterality: unspecified laterality (3) Type 2 diabetes mellitus with diabetic polyneuropathy Assessment/Plan: hgba1c noted insulin endocrine consult noted Code(s): E11.42 - TYPE 2 DIABETES MELLITUS WITH DIABETIC POLYNEUROPATHY (4) Abdominal distension Assessment/Plan: liver cirrhosis/ ascites ultrasound noted Code(s): R14.0 - ABDOMINAL DISTENSION (GASEOUS) (5) Ascites Assessment/Plan: secondary to cirrhosis abdominal son noted for ascites Code(s): R18.8 - OTHER ASCITES Qualifiers: Ascites type: other type Qualified Code(s): R18.8 - Other ascites (6) CAD (coronary artery disease) Assessment/Plan: asa,statin Code(s): I25.10 - ATHSCL HEART DISEASE OF [place] CORONARY ARTERY W/O ANG PCTRS
[2017-04-01] MEDS ORDERED: HYDROmorphone HCL 2 MG TABLET PO PRN (15:08)
[2017-04-01] MEDS: CEFAZOLIN 2 GM/D5W 2 GM/50 ML ML IVPB SCH ×2 (15:53→18:29)
[2017-04-01 16:14] LABS: ANION GAP 8 (8-16); CALCIUM 7.5 mg/dL (8.5-10.1); CO2 23 mmol/L (21-32); CREATININE 1.1 mg/dL (0.7-1.3); GLUCOSE,RANDOM 173 mg/dL (74-106)
[2017-04-01] MEDS: HYDROmorphone HCL 2 MG TABLET PO PRN (17:29)
[2017-04-01] MEDS ORDERED: CEFAZOLIN 1 GM PUSH 1 GM/10 ML DISP.SYRIN IVPUSH SCH (18:00)
--- NOTE | 2017-04-01 18:15 | PN ---
Progress Note (short form) - Note Progress Note: vascular surgery Pt with osteomylitis in left foot. ID on case. Pt currently in ultrasound for arterial duplex. If normal, pt will need IV antibiotics and HBO as outpt. Neil Gasca DO
[2017-04-01] MEDS: ATORVASTATIN CA 10 MG TABLET (FP) PO SCH (21:32)
[2017-04-02] MEDS: SODIUM CHLORIDE 1,000 ML IV SCH ×2 (02:04→17:35)
[2017-04-02] MEDS: CEFAZOLIN 2 GM/D5W 2 GM/50 ML ML IVPB SCH ×3 (02:05→17:35)
[2017-04-02] MEDS: INSULIN DETEMIR 100 UNITS/ML MDV SQ SCH ×2 (06:34→21:26)
[2017-04-02] MEDS: INSULIN SLIDING SCALE (NOVOLOG) 1 VIAL SQ SCH ×4 (06:34→21:28)
[2017-04-02 07:07] LABS: BASOPHIL 0.5 % (0-2.0); MCH 27.1 pg (25.7-33.7); MCHC 32.7 g/dl (32.0-35.9); MEAN CELL VOLUME 82.7 fl (80-96); MEAN PLT VOLUME 7.7 fl (7.5-11.1); NEUTROPHILS 77.8 % (42.8-82.8); PLATELET COUNT 98 K/MM3 (134-434); RDW 19.1 % (11.9-15.9); WHITE BLOOD COUNT 7.8 K/mm3 (4.0-10.0)
[2017-04-02 07:37] LABS: ANION GAP 7 (8-16); CALCIUM 7.2 mg/dL (8.5-10.1); CO2 23 mmol/L (21-32); CREATININE 1.1 mg/dL (0.7-1.3); GLUCOSE,RANDOM 120 mg/dL (74-106)
[2017-04-02] MEDS ORDERED: RANOLAZINE E.R. 500 MG TABLET (FP) ONE ×2 (09:27→21:22)
[2017-04-02] MEDS ORDERED: PT OWN MED DRAWER 7, Y5N ONE ×2 (09:28→17:26)
[2017-04-02] MEDS: FUROSEMIDE 40 MG TABLET (FP) PO SCH (09:31)
[2017-04-02] MEDS: ASPIRIN 81 MG CHEWABLE TABLETS PO SCH (09:31)
[2017-04-02] MEDS: SPIRONOLACTONE 25 MG TABLET (FP) PO SCH (09:31)
[2017-04-02] MEDS: RIVAROXABAN 10 MG TABLET PO SCH (09:31)
[2017-04-02] MEDS: RANOLAZINE E.R. 1,000 MG TABLET (FP) PO SCH ×2 (09:32→21:26)
[2017-04-02] MEDS: LISINOPRIL 10 MG TABLET (FP) PO SCH (09:32)
[2017-04-02] MEDS: PANTOPRAZOLE 40 MG TABLET (FP) PO SCH (09:32)
[2017-04-02] MEDS: NADOLOL 40 MG TABLET (FP) PO SCH (09:32)
[2017-04-02] MEDS: HYDROmorphone HCL 2 MG TABLET PO PRN (09:33)
--- NOTE | 2017-04-02 12:23 | PN ---
Progress Note (short form) - Note Progress Note: continued erythema of the foot less pain awaiting ultrasound results Vital Signs Period Temp Pulse Resp BP Sys/Ferrell Pulse Ox Last 24 Hr 98.2 F-98.7 F 53-57 -18 99-108/55-62 98 cor-rrr lungs clear abd soft,nt ext erythema unchanged MRI-fourth toe osteo CBC, BMP 04/02/17 06:00 04/02/17 06:00 Laboratory Tests 03/28/17 03/29/17 16:40 10:05 ESR 95 H C-Reactive Protein 8.4 H D imp/reccd 57 year old man with DM and liver cirrhosis/liver cancer cellulitis osteomyelitis MSSA continue cefazolin vascular surgery f/u will need alf iv antibiotics repeat esr and crp Problem List - Problems (1) Cellulitis Code(s): L03.90 - CELLULITIS, UNSPECIFIED Qualifiers: Site of cellulitis of extremity: toe Laterality: unspecified laterality (2) Osteomyelitis Code(s): M86.9 - OSTEOMYELITIS, UNSPECIFIED
--- NOTE | 2017-04-02 12:34 | PN ---
Progress Note, Physician Chief Complaint: ASLEEP,COMFORTABLE EVENTS AND CHARTS REVIEWED - Current Medication List Current Medications: Active Medications Acetaminophen (Tylenol -) 650 mg PO Q6H PRN PRN Reason: FEVER OR PAIN Last Admin: 04/01/17 10:43 Dose: 650 mg Albuterol/Ipratropium (Duoneb -) 1 amp NEB Q6H PRN PRN Reason: SHORTNESS OF BREATH Aspirin (Asa -) 81 mg PO DAILY [facility] Last Admin: 04/02/17 09:31 Dose: 81 mg Atorvastatin Calcium (Lipitor -) 10 mg PO HS [facility] Last Admin: 04/01/17 21:32 Dose: 10 mg Furosemide (Lasix -) 40 mg PO DAILY [facility] Last Admin: 04/02/17 09:31 Dose: 40 mg Hydromorphone HCl (Dilaudid -) 2 mg PO Q8H PRN PRN Reason: PAIN Last Admin: 04/02/17 09:33 Dose: 2 mg Sodium Chloride (Normal Saline -) 1,000 mls @ 125 mls/hr IV ASDIR [facility] Last Admin: 04/02/17 02:04 Dose: 125 mls/hr Cefazolin Sodium/Dextrose (Ancef 2 Gm Premixed Ivpb -) 2 gm in 50 mls @ 100 mls /hr IVPB Q8H-IV J [facility] Last Admin: 04/02/17 09:32 Dose: 100 mls/hr Insulin Aspart (Novolog Vial Sliding Scale -) 1 vial SQ ACHS [facility] PRN Reason: Protocol Last Admin: 04/02/17 11:47 Dose: 2 units Insulin Detemir (Levemir Vial) 40 units SQ HS [facility] Last Admin: 04/01/17 21:33 Dose: 40 units Insulin Detemir (Levemir Vial) 20 units SQ AM [facility] Last Admin: 04/02/17 06:34 Dose: 20 units Lactulose (Cephulac (Oral Use)) 20 gm PO TID PRN PRN Reason: CONSTIPATION Lisinopril (Prinivil) 10 mg PO DAILY [facility] Last Admin: 04/02/17 09:32 Dose: 10 mg Nadolol (Corgard -) 40 mg PO DAILY [facility] Last Admin: 04/02/17 09:32 Dose: 40 mg Pantoprazole Sodium (Protonix -) 40 mg PO DAILY [facility] Last Admin: 04/02/17 09:32 Dose: 40 mg Ranolazine (Ranexa -) 1,000 mg PO BID [facility] Last Admin: 04/02/17 09:32 Dose: 1,000 mg Rivaroxaban (Xarelto -) 10 mg PO DAILY [facility] Last Admin: 04/02/17 09:31 Dose: 10 mg Spironolactone (Aldactone -) 25 mg PO DAILY [facility] Last Admin: 04/02/17 09:31 Dose: 25 mg - Objective Vital Signs: Vital Signs Temperature 98.6 F 04/02/17 06:18 Pulse Rate 56 L 04/02/17 06:18 Respiratory Rate 17 04/02/17 06:18 Blood Pressure 99/55 04/02/17 06:18 O2 Sat by Pulse Oximetry (%) 98 04/01/17 22:00 Constitutional: Yes: No Distress Eyes: Yes: WNL HENT: Yes: WNL Neck: Yes: WNL Cardiovascular: Yes: WNL Respiratory: Yes: WNL Gastrointestinal: Yes: Ascites, Distention Genitourinary: Yes: WNL Musculoskeletal: Yes: Muscle Weakness Extremities: Yes: Deformity Edema: Yes Peripheral Pulses WNL: Yes Integumentary: Yes: Erythema, Pressure Ulcer, Venous Stasis Changes Wound/Incision: Yes: Dressing Dry and Intact Neurological: Yes: Pre-Existing Deficit ...Motor Strength: LLE Psychiatric: Yes: WNL Labs: CBC, BMP 04/02/17 06:00 04/02/17 06:00 Problem List - Problems (1) Cellulitis of toe, left Code(s): L03.032 - CELLULITIS OF LEFT TOE (2) Osteomyelitis Code(s): M86.9 - OSTEOMYELITIS, UNSPECIFIED Qualifiers: Osteomyelitis location: foot Laterality: left (3) Type 2 diabetes mellitus with diabetic polyneuropathy Code(s): E11.42 - TYPE 2 DIABETES MELLITUS WITH DIABETIC POLYNEUROPATHY (4) Ascites Code(s): R18.8 - OTHER ASCITES Qualifiers: Ascites type: other type Qualified Code(s): R18.8 - Other ascites (5) Cirrhosis of liver not due to alcohol Code(s): K74.60 - UNSPECIFIED CIRRHOSIS OF LIVER Assessment/Plan IV ABX PICC LINE TUESDAY SSI ADA STRICT DM CONTROL LIVER CIRRHOSIS F/U LABS OOB TO CHAIR DVT PROPHYLAXIS
[2017-04-02] MEDS: ATORVASTATIN CA 10 MG TABLET (FP) PO SCH (21:26)
[2017-04-03] MEDS ORDERED: PT OWN MED DRAWER 7, Y5N ONE ×2 (01:39→17:03)
[2017-04-03] MEDS: CEFAZOLIN 2 GM/D5W 2 GM/50 ML ML IVPB SCH ×3 (01:49→17:59)
[2017-04-03] MEDS: SODIUM CHLORIDE 1,000 ML IV SCH ×3 (05:45→16:34)
[2017-04-03] MEDS: INSULIN SLIDING SCALE (NOVOLOG) 1 VIAL SQ SCH ×4 (06:12→21:47)
[2017-04-03] MEDS: INSULIN DETEMIR 100 UNITS/ML MDV SQ SCH ×2 (06:12→21:45)
[2017-04-03] MEDS ORDERED: INSULIN (NOVOLOG) ASPART 100 UNITS/ML 10ML VIAL ONE (06:46)
[2017-04-03 08:18] LABS: MCH 26.7 pg (25.7-33.7); MEAN CELL VOLUME 83.4 fl (80-96); MEAN PLT VOLUME 8.1 fl (7.5-11.1); PLATELET COUNT 117 K/MM3 (134-434); RDW 19.5 % (11.9-15.9); WHITE BLOOD COUNT 8.9 K/mm3 (4.0-10.0)
[2017-04-03 08:29] LABS: ALBUMIN 1.9 g/dl (3.4-5.0); ALK PHOS 135 U/L (45-117); ANION GAP 10 (8-16); BILIRUBIN,TOTAL 1.1 mg/dL (0.2-1.0); C-REACTIVE PROTEIN 12.3 MG/DL (0.00-0.3); CALCIUM 7.6 mg/dL (8.5-10.1); CO2 19 mmol/L (21-32); CREATININE 1.2 mg/dL (0.7-1.3); GLUCOSE,RANDOM 76 mg/dL (74-106); SGOT/AST 26 U/L (15-37); SGPT/ALT 9 U/L (12-78)
[2017-04-03] MEDS ORDERED: RANOLAZINE E.R. 500 MG TABLET (FP) ONE ×2 (08:58→21:00)
[2017-04-03] MEDS: SPIRONOLACTONE 25 MG TABLET (FP) PO SCH (09:11)
[2017-04-03] MEDS: HYDROmorphone HCL 2 MG TABLET PO PRN (09:11)
[2017-04-03] MEDS: LISINOPRIL 10 MG TABLET (FP) PO SCH (09:12)
[2017-04-03] MEDS: PANTOPRAZOLE 40 MG TABLET (FP) PO SCH (09:12)
[2017-04-03] MEDS: ASPIRIN 81 MG CHEWABLE TABLETS PO SCH (09:12)
[2017-04-03] MEDS: FUROSEMIDE 40 MG TABLET (FP) PO SCH (09:12)
[2017-04-03] MEDS: RIVAROXABAN 10 MG TABLET PO SCH (09:13)
[2017-04-03] MEDS: NADOLOL 40 MG TABLET (FP) PO SCH (09:13)
[2017-04-03] MEDS: RANOLAZINE E.R. 1,000 MG TABLET (FP) PO SCH ×2 (09:13→21:46)
--- NOTE | 2017-04-03 10:52 | PN ---
Progress Note, Physician Chief Complaint: AWAKE ALERT NAD - Current Medication List Current Medications: Active Medications Acetaminophen (Tylenol -) 650 mg PO Q6H PRN PRN Reason: FEVER OR PAIN Last Admin: 04/01/17 10:43 Dose: 650 mg Albuterol/Ipratropium (Duoneb -) 1 amp NEB Q6H PRN PRN Reason: SHORTNESS OF BREATH Aspirin (Asa -) 81 mg PO DAILY [facility] Last Admin: 04/03/17 09:12 Dose: 81 mg Atorvastatin Calcium (Lipitor -) 10 mg PO HS [facility] Last Admin: 04/02/17 21:26 Dose: 10 mg Furosemide (Lasix -) 40 mg PO DAILY [facility] Last Admin: 04/03/17 09:12 Dose: 40 mg Hydromorphone HCl (Dilaudid -) 2 mg PO Q8H PRN PRN Reason: PAIN Last Admin: 04/03/17 09:11 Dose: 2 mg Sodium Chloride (Normal Saline -) 1,000 mls @ 125 mls/hr IV ASDIR [facility] Last Admin: 04/03/17 05:45 Dose: 125 mls/hr Cefazolin Sodium/Dextrose (Ancef 2 Gm Premixed Ivpb -) 2 gm in 50 mls @ 100 mls /hr IVPB Q8H-IV J [facility] Last Admin: 04/03/17 09:12 Dose: 100 mls/hr Insulin Aspart (Novolog Vial Sliding Scale -) 1 vial SQ ACHS [facility] PRN Reason: Protocol Last Admin: 04/03/17 06:12 Dose: Not Given Insulin Detemir (Levemir Vial) 40 units SQ HS [facility] Last Admin: 04/02/17 21:26 Dose: 40 units Insulin Detemir (Levemir Vial) 20 units SQ AM [facility] Last Admin: 04/03/17 06:12 Dose: Not Given Lactulose (Cephulac (Oral Use)) 20 gm PO TID PRN PRN Reason: CONSTIPATION Lisinopril (Prinivil) 10 mg PO DAILY [facility] Last Admin: 04/03/17 09:12 Dose: 10 mg Nadolol (Corgard -) 40 mg PO DAILY [facility] Last Admin: 04/03/17 09:13 Dose: 40 mg Pantoprazole Sodium (Protonix -) 40 mg PO DAILY [facility] Last Admin: 04/03/17 09:12 Dose: 40 mg Ranolazine (Ranexa -) 1,000 mg PO BID [facility] Last Admin: 04/03/17 09:13 Dose: 1,000 mg Rivaroxaban (Xarelto -) 10 mg PO DAILY [facility] Last Admin: 04/03/17 09:13 Dose: 10 mg Spironolactone (Aldactone -) 25 mg PO DAILY [facility] Last Admin: 04/03/17 09:11 Dose: 25 mg - Objective Vital Signs: Vital Signs Temperature 99.3 F 04/03/17 09:00 Pulse Rate 53 L 04/03/17 09:00 Respiratory Rate 18 04/03/17 09:00 Blood Pressure 120/46 04/03/17 09:00 O2 Sat by Pulse Oximetry (%) 100 04/03/17 09:00 Constitutional: Yes: No Distress Eyes: Yes: WNL HENT: Yes: WNL Neck: Yes: WNL Cardiovascular: Yes: WNL Respiratory: Yes: WNL Gastrointestinal: Yes: WNL Genitourinary: Yes: WNL Musculoskeletal: Yes: Muscle Weakness Extremities: Yes: Other Edema: Yes Peripheral Pulses WNL: Yes Integumentary: Yes: Other Wound/Incision: Yes: Dressing Dry and Intact Neurological: Yes: Pre-Existing Deficit ...Motor Strength: LLE, RLE Psychiatric: Yes: Other Labs: CBC, BMP 04/03/17 06:20 04/03/17 06:20 Problem List - Problems (1) Cellulitis of toe, left Code(s): L03.032 - CELLULITIS OF LEFT TOE (2) Osteomyelitis Code(s): M86.9 - OSTEOMYELITIS, UNSPECIFIED Qualifiers: Osteomyelitis location: foot Laterality: left (3) Type 2 diabetes mellitus with diabetic polyneuropathy Code(s): E11.42 - TYPE 2 DIABETES MELLITUS WITH DIABETIC POLYNEUROPATHY (4) Ascites Code(s): R18.8 - OTHER ASCITES Qualifiers: Ascites type: other type Qualified Code(s): R18.8 - Other ascites (5) Cirrhosis of liver not due to alcohol Code(s): K74.60 - UNSPECIFIED CIRRHOSIS OF LIVER Assessment/Plan IV ABX PICC LINE TUESDAY SSI ADA STRICT DM CONTROL LIVER CIRRHOSIS F/U LABS OOB TO CHAIR DVT PROPHYLAXIS
--- NOTE | 2017-04-03 13:31 | CONSULT ---
Consult Consult Specialty:: Hematology Reason for Consultation:: Anemia - History of Present Illness Chief Complaint: Patient with complicated medical history, admitted following trauma to toe, found to have anemia - Hb circa 7 - microcytic. Aware of anemia previously - has had transfusions in the past none recently. History of Present Illness: Significant medical history, including IDDM, CAD s/p 4 cardiac stents, HTN, chronic liver disease, liver CA (currently on waiting list for liver transplant) , s/p local ablative therapy in the past, with recent recurrence, scheduled for a local ablative procedure in the next few days ([facility]). Multiple bilateral toe amputations, esophageal varices, gastritis, diabetic neuropathy, and colitis. Presented to the ED with an injury to the fourth toe, s/p amputation 6 months prior, walked into furniture 2 days ago. 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 Cardio/Vascular: Yes: CAD, HTN, Hyperlipdemia Gastrointestinal: Yes: Ascites, Esophageal Varices, Gastritis, GI Bleed, Hemorrhoids, Other Hepatobiliary: Yes: Cirrhosis (h/o esophageal varices s/p banding, related to HERNANDEZ), Cholelithiasis (s/p lap choly), Other (PORTAL VEIN PARTIAL THROMBOSIS, HCC treated with transhepatic heat ablations at [facility]) Renal/: Yes: Renal Inusuff Endocrine: Yes: Diabetes Mellitus - Past Surgical History Past Surgical History: Yes: Hernia Repair, Colonoscopy, Upper Endoscopy, Amputation, Cholecystectomy - Alcohol/Substance Use Hx Alcohol Use: No History of Substance Use: reports: None - Smoking History Smoking history: Never smoked Have you smoked in the past 12 months: No Aproximately how many cigarettes per day: 0 - Social History Usual Living Arrangement: With Spouse ADL: Independent 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 [employer] History of Recent Travel: No Home Medications - Allergies Allergies/Adverse Reactions: Allergies Allergy/AdvReac Type Severity Reaction Status Date / Time Iodinated Contrast- Oral and Allergy Verified 03/28/17 15:20 IV Dye [Iodinated Contrast Media - IV Dye] - Home Medications Home Medications: Ambulatory Orders Furosemide [Lasix] 40 mg PO DAILY 07/15/16 Insulin Detemir [Levemir Flextouch] 40 unit SQ DAILY 07/15/16 Multivitamins [Multivit ([facility] Formul[facility])] 1 tab PO DAILY 07/15/16 Nateglinide [Starlix (Nf) -] 60 mg PO BID 07/15/16 Metformin HCl 500 mg PO BID 08/09/16 Aspirin [ASA -] 81 mg PO DAILY tab.chew 10/30/16 Lactulose (Oral Use) [Cephulac -] 20 gm PO BID #1 bottle 10/30/16 Spironolactone [Aldactone -] 50 mg PO DAILY tablet 10/30/16 Albuterol 2.5/Ipratropium 0.5 [Duoneb -] 1 amp NEB QIDR #30 amp 12/11/16 Atorvastatin Ca [Lipitor] 10 mg PO HS #30 tab 12/11/16 Insulin (Levemir) [Levemir Vial] 20 units SQ HS ml 12/11/16 Nadolol 20 mg PO DAILY #30 tab 12/11/16 Pantoprazole Sodium [Protonix] 40 mg PO DAILY #30 tab 12/11/16 Ranolazine [Ranexa] 1,000 mg PO BID #60 tab 12/11/16 Rivaroxaban [Xarelto -] 20 mg PO DAILY #30 tablet 12/11/16 Benazepril HCl [Lotensin] 20 mg PO DAILY 03/28/17 Ergocalciferol (Vitamin D2) [Vitamin D2] 50,000 unit PO DAILY 03/28/17 Family Disease History - Family Disease History Family Disease History: Diabetes: Brother (alcoholic cirrhosis), Sister, CA: Mother (breast Ca), Other: Father ( from alcohol related complications) Physical Exam Vital Signs: Vital Signs Temperature 99.3 F 04/03/17 09:00 Pulse Rate 53 L 04/03/17 09:00 Respiratory Rate 18 04/03/17 09:00 Blood Pressure 120/46 04/03/17 09:00 O2 Sat by Pulse Oximetry (%) 100 04/03/17 09:00 Constitutional: Yes: Well Nourished, No Distress, Calm Eyes: Yes: WNL, Conjunctiva Clear HENT: Yes: Normocephalic Neck: Yes: Supple, Trachea Midline Cardiovascular: Yes: WNL, Regular Rate and Rhythm, Bradycardia, S1, S2 Respiratory: Yes: Regular, CTA Bilaterally Gastrointestinal: Yes: Normal Bowel Sounds, Soft, Abdomen, Obese, Ascites. No: Tenderness Neurological: Yes: Alert, Oriented ...Motor Strength: WNL Psychiatric: Yes: Alert, Oriented. No: Agitated Labs: CBC, BMP 04/03/17 06:20 04/03/17 06:20 Assessment/Plan Patient with multiple comorbidities, with microcytic anemia. Renal function reasonable - creat 1.2. Overall picture would have expected anemia to be attributable to chronic disease , however ferritin is lower than expected, suggesting an element of absolute iron deficiency, and possibly iron responsiveness. Unclear why he should be iron deficient - reports negative colonoscopy withing last year. ?results of upper endoscopy. Anticioagulated for history of venous thromboembolism. High iron saturation is likely not new accounts representative - possibly iron panel drawn shortly after transfusion. Repeat iron panel. Hemeoccult screening. Recommend empiric IV iron while admitted - Venofer 200mgs daily reasonable.
[2017-04-03] MEDS: IRON SUCROSE INJECTION 200 MG in SODIUM CHLORIDE 100 ML IVPB SCH (14:59)
[2017-04-03] MEDS: ATORVASTATIN CA 10 MG TABLET (FP) PO SCH (21:45)
[2017-04-04] MEDS: CEFAZOLIN 2 GM/D5W 2 GM/50 ML ML IVPB SCH ×3 (02:24→17:44)
[2017-04-04] MEDS: IRON SUCROSE INJECTION 200 MG in SODIUM CHLORIDE 100 ML IVPB SCH (05:46)
[2017-04-04] MEDS: INSULIN SLIDING SCALE (NOVOLOG) 1 VIAL SQ SCH ×4 (06:23→21:48)
[2017-04-04] MEDS: INSULIN DETEMIR 100 UNITS/ML MDV SQ SCH ×2 (06:23→21:47)
[2017-04-04 08:07] LABS: MCH 26.8 pg (25.7-33.7); MEAN CELL VOLUME 83.7 fl (80-96); MEAN PLT VOLUME 7.8 fl (7.5-11.1); PLATELET COUNT 125 K/MM3 (134-434); RDW 19.1 % (11.9-15.9); WHITE BLOOD COUNT 11.6 K/mm3 (4.0-10.0)
--- NOTE | 2017-04-04 08:29 | RAPID ---
Physical Examination Vital Signs: Vital Signs Temperature 98.1 F 04/04/17 06:00 Pulse Rate 59 L 04/04/17 06:00 Respiratory Rate 18 04/04/17 06:00 Blood Pressure 102/57 04/04/17 06:00 O2 Sat by Pulse Oximetry (%) 100 04/03/17 21:00 Constitutional: Yes: No Distress Eyes: Yes: WNL, Conjunctiva Clear, EOM Intact HENT: Yes: WNL, Atraumatic, Normocephalic Neck: Yes: WNL, Trachea Midline Cardiovascular: Yes: WNL, Regular Rate and Rhythm Respiratory: Yes: WNL, Regular, CTA Bilaterally Gastrointestinal: Yes: WNL, Normal Bowel Sounds, Distention ...Rectal Exam: Yes: Deferred Musculoskeletal: Yes: WNL Extremities: Yes: Erythema (L dorsal surface erythema of foot) Edema: No Peripheral Pulses WNL: Yes Integumentary: Yes: WNL Neurological: Yes: Cran Nerves II-XII Intact. No: Aphasia, Facial Droop ...Motor Strength: LUE (4/5 flexion/extension. Preserved sensation across all dermatomes. 4/5 stoneworking sander strength.), LLE (1/5 Hip flexion. 0/5 plantar/dorsiflexion. ), RUE (4/5 flexion/extension. Preserved sensation across all dermatomes. 4/5 stoneworking sander strength.), RLE (2/5 hip flexion. 1/5 dorsiflexion. 0/5 plantarflexion.) Psychiatric: Yes: WNL, Alert, Oriented Labs: CBC, BMP 04/03/17 06:20 Rapid Response - Rapid Response Assessment: Pt attempted to ambulate to bathroom w/ help of nursing scheduler. Upon reaching door, pt states "both legs gave out" at the knees and pt fell toward right side , landing on R side of body and back. Denies any THOMPSON/dizziness, palpitations, CP , LOC, trauma to head at the time. student support counselor witnessed fall and attempted to support pt during fall. States pt hit side of head on waste bin in bathroom. Pt was alert and oriented x3 during entire event, with no acute MS changes. Able to answer all questions from primary team. Denied any pain or new peripheral weakness/numbness at the time. BGM 79, BP 158/80 at time of fall. Pt' s neck was stabilized w/ hard C-collar and brief LE neuro exam was performed which showed significant LE weakness BL, which is consistently w/ pt's baseline per chart. Pt was transferred to bed by team and taken for non-con CT scan to rule-out bleed or fracture. Pt was then transported back to room, suctioned and a full physical exam was performed. Recommendations/Interventions: - Pt counseled on fall risk, need to notify staff if there is pressing need to get out of bed - Monitor neuro status for acute changes Q1H - Monitor for signs of bleeding/trauma - Bed alarm - PT eval - Bedside commode - Notify Primary team w/ f/u per oj team - 24hr observation
[2017-04-04] MEDS: HYDROmorphone HCL 2 MG TABLET PO PRN ×2 (09:53→18:53)
[2017-04-04] MEDS ORDERED: RANOLAZINE E.R. 500 MG TABLET (FP) ONE ×2 (10:02→20:57)
[2017-04-04] MEDS: ASPIRIN 81 MG CHEWABLE TABLETS PO SCH ×2 (10:08→10:40)
[2017-04-04] MEDS: PANTOPRAZOLE 40 MG TABLET (FP) PO SCH (10:08)
[2017-04-04] MEDS: SPIRONOLACTONE 25 MG TABLET (FP) PO SCH (10:08)
[2017-04-04] MEDS: RANOLAZINE E.R. 1,000 MG TABLET (FP) PO SCH ×2 (10:08→21:48)
[2017-04-04] MEDS: RIVAROXABAN 10 MG TABLET PO SCH ×2 (10:08→10:40)
[2017-04-04] MEDS: LISINOPRIL 10 MG TABLET (FP) PO SCH (10:09)
--- NOTE | 2017-04-04 10:31 | PN ---
Progress Note (short form) - Note Progress Note: foot still painful episode of leg weakness with fall this am Vital Signs Period Temp Pulse Resp BP Sys/Ferrell Pulse Ox Last 24 Hr 97.5 F-99.2 F 54-64 18-18 99-150/51-86 100 cor-rrr lung decreased bs at bases abd distended, +ascites ext swelling left foot, less erythema CBC, BMP 04/04/17 06:42 04/03/17 06:20 Laboratory Tests 03/28/17 03/29/17 16:40 10:05 ESR 95 H C-Reactive Protein 8.4 H D Microbiology 03/28/17 16:05 Blood - Peripheral Venous Blood Culture - Final NO GROWTH AFTER 5 DAYS INCUBATION 03/28/17 16:05 Blood - Peripheral Venous Blood Culture - Final NO GROWTH AFTER 5 DAYS INCUBATION 03/28/17 16:17 Toe - Left Second Gram Stain - Final 03/28/17 16:17 Toe - Left Second Wound Culture - Final Staphylococcus Aureus 03/29/17 15:00 Wound Gram Stain - Final 03/29/17 15:00 Wound Wound Culture - Final Staphylococcus Aureus Staphylococcus Coagulase Neg imp/reccd 57 year old man with DM and liver cirrhosis/liver cancer cellulitis osteomyelitis MSSA continue cefazolin-avoiding ceftriaxone due to extensive liver disease vascular surgery f/u will need long-term iv antibiotics family aware d/w Dr Ag Problem List - Problems (1) Cellulitis Code(s): L03.90 - CELLULITIS, UNSPECIFIED Qualifiers: Site of cellulitis of extremity: toe Laterality: unspecified laterality (2) Osteomyelitis Code(s): M86.9 - OSTEOMYELITIS, UNSPECIFIED Qualifiers: Osteomyelitis location: foot Laterality: left
[2017-04-04] MEDS: FUROSEMIDE 40 MG TABLET (FP) PO SCH (10:32)
[2017-04-04] MEDS: NADOLOL 40 MG TABLET (FP) PO SCH (10:32)
--- NOTE | 2017-04-04 10:39 | PN ---
Progress Note, Physician - Current Medication List Current Medications: Active Medications Acetaminophen (Tylenol -) 650 mg PO Q6H PRN PRN Reason: FEVER OR PAIN Last Admin: 04/01/17 10:43 Dose: 650 mg Albuterol/Ipratropium (Duoneb -) 1 amp NEB Q6H PRN PRN Reason: SHORTNESS OF BREATH Aspirin (Asa -) 81 mg PO DAILY [facility] Last Admin: 04/04/17 10:08 Dose: 81 mg Atorvastatin Calcium (Lipitor -) 10 mg PO HS [facility] Last Admin: 04/03/17 21:45 Dose: 10 mg Furosemide (Lasix -) 40 mg PO DAILY [facility] Last Admin: 04/03/17 09:12 Dose: 40 mg Hydromorphone HCl (Dilaudid -) 2 mg PO Q8H PRN PRN Reason: PAIN Last Admin: 04/04/17 09:53 Dose: 2 mg Cefazolin Sodium/Dextrose (Ancef 2 Gm Premixed Ivpb -) 2 gm in 50 mls @ 100 mls /hr IVPB Q8H-IV [facility] Last Admin: 04/04/17 10:07 Dose: 100 mls/hr Iron Sucrose 200 mg/ Sodium (Chloride) 110 mls @ 110 mls/hr IVPB DAILY@0600 [facility] Last Admin: 04/04/17 05:46 Dose: 110 mls/hr Insulin Aspart (Novolog Vial Sliding Scale -) 1 vial SQ ACHS [facility] PRN Reason: Protocol Last Admin: 04/04/17 06:23 Dose: Not Given Insulin Detemir (Levemir Vial) 40 units SQ HS [facility] Last Admin: 04/03/17 21:45 Dose: 40 units Insulin Detemir (Levemir Vial) 20 units SQ AM [facility] Last Admin: 04/04/17 06:23 Dose: Not Given Lactulose (Cephulac (Oral Use)) 20 gm PO TID PRN PRN Reason: CONSTIPATION Lisinopril (Prinivil) 10 mg PO DAILY [facility] Last Admin: 04/04/17 10:09 Dose: 10 mg Nadolol (Corgard -) 40 mg PO DAILY [facility] Last Admin: 04/03/17 09:13 Dose: 40 mg Pantoprazole Sodium (Protonix -) 40 mg PO DAILY [facility] Last Admin: 04/04/17 10:08 Dose: 40 mg Ranolazine (Ranexa -) 1,000 mg PO BID [facility] Last Admin: 04/04/17 10:08 Dose: 1,000 mg Rivaroxaban (Xarelto -) 10 mg PO DAILY [facility] Last Admin: 04/04/17 10:08 Dose: 10 mg Spironolactone (Aldactone -) 25 mg PO DAILY [facility] Last Admin: 04/04/17 10:08 Dose: 25 mg - Objective Vital Signs: Vital Signs Temperature 97.5 F L 04/04/17 09:38 Pulse Rate 55 L 04/04/17 09:38 Respiratory Rate 18 04/04/17 09:38 Blood Pressure 99/51 04/04/17 09:38 O2 Sat by Pulse Oximetry (%) 100 04/03/17 21:00 Constitutional: Yes: Calm Cardiovascular: Yes: Regular Rate and Rhythm, S1, S2 Respiratory: Yes: Diminished Gastrointestinal: Yes: Ascites, Distention Extremities: Yes: Erythema (edema of left foot) Edema: Yes Neurological: Yes: Alert, Oriented Labs: CBC, BMP 04/04/17 06:42 04/03/17 06:20 Problem List - Problems (1) Osteomyelitis Assessment/Plan: hold xarelto and aspirin today picc line tmw cefazolin for 4 weeks Code(s): M86.9 - OSTEOMYELITIS, UNSPECIFIED Qualifiers: Osteomyelitis location: foot Laterality: left (2) Cellulitis Assessment/Plan: MRI consistent with osteo iv cefazolin- Microbiology 03/28/17 16:17 Toe - Left Second Gram Stain - Final 03/29/17 15:00 Wound Wound Culture - Preliminary Presumptive Mssa (Pbp2a Neg) Staphylococcus Coagulase Neg 03/28/17 16:17 Toe - Left Second Wound Culture - Preliminary Presumptive Mssa (Pbp2a Neg) Microbiology 03/29/17 15:00 Wound Gram Stain - Final 03/29/17 15:00 Wound Wound Culture - Final Staphylococcus Aureus Staphylococcus Coagulase Neg 03/28/17 16:17 Toe - Left Second Gram Stain - Final 03/28/17 16:17 Toe - Left Second Wound Culture - Final Staphylococcus Aureus will need picc line to be placed in AM and keno terminal operator abx Qualifiers: Site of cellulitis of extremity: toe Laterality: unspecified laterality (3) Type 2 diabetes mellitus with diabetic polyneuropathy Assessment/Plan: [id number] noted insulin endocrine consult noted Code(s): E11.42 - TYPE 2 DIABETES MELLITUS WITH DIABETIC POLYNEUROPATHY (4) Abdominal distension Assessment/Plan: liver cirrhosis/ ascites ultrasound noted hold asa and xarelto check coags paracentesis via IR Code(s): R14.0 - ABDOMINAL DISTENSION (GASEOUS) (5) Ascites Assessment/Plan: secondary to cirrhosis abdominal sono noted for ascites- paracentesis via IR Code(s): R18.8 - OTHER ASCITES Qualifiers: Ascites type: other type Qualified Code(s): R18.8 - Other ascites (6) CAD (coronary artery disease) Assessment/Plan: asa,statin low BP hold BP meds Code(s): I25.10 - ATHSCL HEART DISEASE OF [place] CORONARY ARTERY W/O ANG PCTRS (7) Leg weakness Assessment/Plan: rapid response noted his legs gave away he states that when he bears weight on left foot it hurts Code(s): R29.898 - OTH SYMPTOMS AND SIGNS INVOLVING THE MUSCULOSKELETAL SYSTEM (8) Anemia Assessment/Plan: iv venofer Code(s): D64.9 - ANEMIA, UNSPECIFIED
[2017-04-04] MEDS ORDERED: PICC LINE 8 ML FLUSH PROTOCOL IVPUSH PRN (10:40)
[2017-04-04] MEDS: ALBUTEROL SO4 2.5/IPRATROPIUM 0.5 INH SOL 3 ML VIAL.NEB. NEB PRN (10:59)
--- NOTE | 2017-04-04 11:47 | PN ---
Progress Note (short form) - Note Progress Note: vascular Surgery Arterial duplex reviewed. no signficant stenosis in [employer], SFA, pop artery . Good wave forms. No need for angiogram at this time. Will need picc line and outpt HBO Neil Gasca DO
[2017-04-04 12:14] LABS: INR 2.49 (0.82-1.09); PROTHROMBIN TIME (PATIENT) 28.1 SEC (9.98-11.88)
[2017-04-04] MEDS ORDERED: INSULIN (NOVOLOG) ASPART 100 UNITS/ML 10ML VIAL ONE ×2 (17:03→21:09)
[2017-04-04] MEDS ORDERED: PT OWN MED DRAWER 7, Y5N ONE ×2 (17:34→20:58)
[2017-04-04] MEDS: ATORVASTATIN CA 10 MG TABLET (FP) PO SCH (21:47)
[2017-04-05] MEDS: CEFAZOLIN 2 GM/D5W 2 GM/50 ML ML IVPB SCH ×3 (01:58→17:00)
[2017-04-05] MEDS: INSULIN SLIDING SCALE (NOVOLOG) 1 VIAL SQ SCH ×4 (06:19→22:10)
[2017-04-05] MEDS: IRON SUCROSE INJECTION 200 MG in SODIUM CHLORIDE 100 ML IVPB SCH (06:19)
[2017-04-05] MEDS: INSULIN DETEMIR 100 UNITS/ML MDV SQ SCH ×2 (06:19→22:09)
[2017-04-05 07:48] LABS: INR 2.75 (0.82-1.09); PROTHROMBIN TIME (PATIENT) 31.1 SEC (9.98-11.88)
[2017-04-05] MEDS ORDERED: RANOLAZINE E.R. 500 MG TABLET (FP) ONE ×2 (10:25→20:56)
[2017-04-05] MEDS ORDERED: PT OWN MED DRAWER 7, Y5N ONE ×2 (10:26→16:26)
[2017-04-05] MEDS: LISINOPRIL 10 MG TABLET (FP) PO SCH (10:33)
[2017-04-05] MEDS: SPIRONOLACTONE 25 MG TABLET (FP) PO SCH (10:33)
[2017-04-05] MEDS: PANTOPRAZOLE 40 MG TABLET (FP) PO SCH (10:33)
[2017-04-05] MEDS: FUROSEMIDE 40 MG TABLET (FP) PO SCH (10:33)
[2017-04-05] MEDS: RANOLAZINE E.R. 1,000 MG TABLET (FP) PO SCH ×2 (10:34→22:12)
[2017-04-05] MEDS: NADOLOL 40 MG TABLET (FP) PO SCH (10:34)
--- NOTE | 2017-04-05 11:03 | PN ---
Progress Note (short form) - Note Progress Note: foot still painful episode of leg weakness with fall yesterday awaiting paracentesis Vital Signs Period Temp Pulse Resp BP Sys/Ferrell Pulse Ox Last 24 Hr 97.9 F-98.6 F 55-72 18-22 98-122/47-68 99 cor-rrr lungs decreased bs at bases abd firm, nt +ascites ext erythema of foot unchanged, amputation site with collection- ?abscess CBC, BMP 04/04/17 06:42 04/03/17 06:20 Microbiology 03/28/17 16:05 Blood - Peripheral Venous Blood Culture - Final NO GROWTH AFTER 5 DAYS INCUBATION 03/28/17 16:05 Blood - Peripheral Venous Blood Culture - Final NO GROWTH AFTER 5 DAYS INCUBATION 03/28/17 16:17 Toe - Left Second Gram Stain - Final 03/28/17 16:17 Toe - Left Second Wound Culture - Final Staphylococcus Aureus 03/29/17 15:00 Wound Gram Stain - Final 03/29/17 15:00 Wound Wound Culture - Final Staphylococcus Aureus Staphylococcus Coagulase Neg imp/reccd 57 year old man with DM and liver cirrhosis/liver cancer cellulitis osteomyelitis MSSA continue cefazolin-avoiding ceftriaxone due to extensive liver disease d/w Dr Gasca- he will re-evaluate the foot today will need long-term iv antibiotics family aware Problem List - Problems (1) Cellulitis Code(s): L03.90 - CELLULITIS, UNSPECIFIED Qualifiers: Site of cellulitis of extremity: toe Laterality: unspecified laterality (2) Osteomyelitis Code(s): M86.9 - OSTEOMYELITIS, UNSPECIFIED Qualifiers: Osteomyelitis location: foot Laterality: left
[2017-04-05] MEDS: ALBUTEROL SO4 2.5/IPRATROPIUM 0.5 INH SOL 3 ML VIAL.NEB. NEB PRN (11:13)
[2017-04-05] MEDS: HYDROmorphone HCL 2 MG TABLET PO PRN (11:14)
--- NOTE | 2017-04-05 12:34 | CONSULT ---
Consult - text type - Consultation Consultation Note: Podiatry Consultation: 57 year old IDDM M, multiple comorbidities, presents with L foot cellulitis. S/ p amputation of 4th digit L foot at another facility. He also had stent placed in the leg at that time. Patient was evaluted by Dr. Gasca and does not need further vascular intervention. Currently afebrile, VSS. PMHx: IDDM, HTN, CAD s/p stents, Liver cirrhosis, Liver CA, gastritis Meds: noted in chart ALL: IV contrast GEORGE: L foot: pedal pulses 1/4, TG wnl. There is an amputation stump ulcer from prior 4th digit amputation with hyperkeratotic borders, underlying ulcer with fibrogranular base, no purulence, moderate periwound erythema, no streaking cellulitis, no soft tissue crepitus, no signs of active infection. Ulcer bed has underlying fragmented bone. Mild tenderness to palpation. WBC: 11.6 ESR: 97 L foot MRI: residual osteomyelitis 4th digit Imp: 57 year old IDDM M with L 4th digit amputation stump ulcer and residual osteomyelitis 1. Informed consent obtained and bedside debridement performed to level of subcutaneous tissue, muscle and bone using sterile #15 blade scalpel and scissors. Fragmented bone was removed and sent to microbiology as bone culture. An appropriate soft tissue culture was obtained as well. 2. Will need treatment of osteomyelitis with IV abx as per infectious disease. 3. Local wound care with bactroban + DSD L foot 4. Will need follow up either in wound healing center or with his vascular surgeon. 5. Thank you for the courtesy of this consultation. Angel Aguirre DPM
--- NOTE | 2017-04-05 13:16 | PN ---
Progress Note, Physician Chief Complaint: today bedside InD done by podiatry on iv abx awaiting picc line and paracentesis elevated INR wheezing in morning got nebulzier - Current Medication List Current Medications: Active Medications Acetaminophen (Tylenol -) 650 mg PO Q6H PRN PRN Reason: FEVER OR PAIN Last Admin: 04/01/17 10:43 Dose: 650 mg Albuterol/Ipratropium (Duoneb -) 1 amp NEB Q6H PRN PRN Reason: SHORTNESS OF BREATH Last Admin: 04/05/17 11:13 Dose: 1 amp Aspirin (Asa -) 81 mg PO DAILY J CARLOS Last Admin: 04/04/17 10:40 Dose: Not Given Atorvastatin Calcium (Lipitor -) 10 mg PO HS J CARLOS Last Admin: 04/04/17 21:47 Dose: 10 mg Furosemide (Lasix -) 40 mg PO DAILY [facility] Last Admin: 04/05/17 10:33 Dose: 40 mg Hydromorphone HCl (Dilaudid -) 2 mg PO Q8H PRN PRN Reason: PAIN Last Admin: 04/05/17 11:14 Dose: 2 mg IV Flush (Picc Line Flush) 8 ml IVPUSH PRN PRN PRN Reason: Protocol Cefazolin Sodium/Dextrose (Ancef 2 Gm Premixed Ivpb -) 2 gm in 50 mls @ 100 mls /hr IVPB Q8H-IV J CARLOS Last Admin: 04/05/17 10:34 Dose: 100 mls/hr Iron Sucrose 200 mg/ Sodium (Chloride) 110 mls @ 110 mls/hr IVPB DAILY@0600 [facility] Last Admin: 04/05/17 06:19 Dose: 110 mls/hr Insulin Aspart (Novolog Vial Sliding Scale -) 1 vial SQ ACHS J CARLOS PRN Reason: Protocol Last Admin: 04/05/17 11:17 Dose: Not Given Insulin Detemir (Levemir Vial) 20 units SQ AM [facility] Last Admin: 04/05/17 06:19 Dose: 20 units Insulin Detemir (Levemir Vial) 30 units SQ HS J CARLOS Lactulose (Cephulac (Oral Use)) 20 gm PO TID PRN PRN Reason: CONSTIPATION Lisinopril (Prinivil) 10 mg PO DAILY [facility] Last Admin: 04/05/17 10:33 Dose: 10 mg Nadolol (Corgard -) 40 mg PO DAILY [facility] Last Admin: 04/05/17 10:34 Dose: 40 mg Pantoprazole Sodium (Protonix -) 40 mg PO DAILY [facility] Last Admin: 04/05/17 10:33 Dose: 40 mg Ranolazine (Ranexa -) 1,000 mg PO BID [facility] Last Admin: 04/05/17 10:34 Dose: 1,000 mg Rivaroxaban (Xarelto -) 10 mg PO DAILY [facility] Last Admin: 04/04/17 10:40 Dose: Not Given Spironolactone (Aldactone -) 25 mg PO DAILY [facility] Last Admin: 04/05/17 10:33 Dose: 25 mg - Objective Vital Signs: Vital Signs Temperature 97.8 F 04/05/17 10:00 Pulse Rate 58 L 04/05/17 10:00 Respiratory Rate 20 04/05/17 10:00 Blood Pressure 110/73 04/05/17 10:00 O2 Sat by Pulse Oximetry (%) 99 04/04/17 21:00 Constitutional: Yes: Calm Cardiovascular: Yes: Regular Rate and Rhythm, S1, S2 Respiratory: Yes: Diminished (at bases) Gastrointestinal: Yes: Ascites, Distention (firm) Extremities: Yes: Erythema, Other (left foot dressing) Neurological: Yes: Alert, Oriented Labs: CBC, BMP 04/04/17 06:42 04/03/17 06:20 INR, PTT INR 2.75 (0.82-1.09) H 04/05/17 06:50 Problem List - Problems (1) Ascites Assessment/Plan: secondary to cirrhosis abdominal sono noted for ascites- paracentesis via IR elevated INR - heme consult - INR reversal prior to procedure Code(s): R18.8 - OTHER ASCITES Qualifiers: Ascites type: other type Qualified Code(s): R18.8 - Other ascites (2) Abdominal distension Assessment/Plan: liver cirrhosis/ ascites ultrasound noted hold asa and xarelto check coags- elevated INR- need reverse INR- heme consult paracentesis via IR Code(s): R14.0 - ABDOMINAL DISTENSION (GASEOUS) (3) Osteomyelitis Assessment/Plan: hold xarelto and aspirin today picc line once INR is reversed cefazolin for 6 weeks s/p incision and drainage done at bedside today by podiatry Code(s): M86.9 - OSTEOMYELITIS, UNSPECIFIED Qualifiers: Osteomyelitis location: foot Laterality: left (4) Cellulitis Assessment/Plan: MRI consistent with osteo iv cefazolin- Microbiology 03/28/17 16:17 Toe - Left Second Gram Stain - Final 03/29/17 15:00 Wound Wound Culture - Preliminary Presumptive Mssa (Pbp2a Neg) Staphylococcus Coagulase Neg 03/28/17 16:17 Toe - Left Second Wound Culture - Preliminary Presumptive Mssa (Pbp2a Neg) Microbiology 03/29/17 15:00 Wound Gram Stain - Final 03/29/17 15:00 Wound Wound Culture - Final Staphylococcus Aureus Staphylococcus Coagulase Neg 03/28/17 16:17 Toe - Left Second Gram Stain - Final 03/28/17 16:17 Toe - Left Second Wound Culture - Final Staphylococcus Aureus will need picc line to be placed in AM and [facility] abx Qualifiers: Site of cellulitis of extremity: toe Laterality: unspecified laterality (5) Type 2 diabetes mellitus with diabetic polyneuropathy Assessment/Plan: [id number] noted insulin endocrine consult noted Code(s): E11.42 - TYPE 2 DIABETES MELLITUS WITH DIABETIC POLYNEUROPATHY (6) CAD (coronary artery disease) Assessment/Plan: asa,statin low BP hold BP meds Code(s): I25.10 - ATHSCL HEART DISEASE OF [place] CORONARY ARTERY W/O ANG PCTRS (7) Leg weakness Assessment/Plan: rapid response noted his legs gave away he states that when he bears weight on left foot it hurts Code(s): R29.898 - OTH SYMPTOMS AND SIGNS INVOLVING THE MUSCULOSKELETAL SYSTEM (8) Anemia Assessment/Plan: heme eval Code(s): D64.9 - ANEMIA, UNSPECIFIED
--- NOTE | 2017-04-05 13:53 | PN ---
Progress Note (short form) - Note Progress Note: Patient seen and examined this am Patient is being treated for osteomyelitis/cellulitis presently. O/E: Constitutional: Yes: Well Nourished, No Distress, Calm Eyes: Yes: WNL, Conjunctiva Clear HENT: Yes: Normocephalic Neck: Yes: Supple, Trachea Midline Cardiovascular: Yes: WNL, Regular Rate and Rhythm, Bradycardia, S1, S2 Respiratory: Yes: Regular, CTA Bilaterally Gastrointestinal:++ascites Neurological: Yes: Alert, Oriented Last Vital Signs Temp Pulse Resp BP Pulse Ox 97.8 F 58 L 20 110/73 99 04/05/17 10:00 04/05/17 10:00 04/05/17 10:00 04/05/17 10:00 04/04/17 21:00 CBC, BMP 04/04/17 06:42 04/03/17 06:20 Current Medications Generic Name Dose Route Start Last Admin Trade Name Freq PRN Reason Stop Dose Admin Acetaminophen 650 mg 03/29/17 10:42 04/01/17 10:43 Tylenol - PO 650 mg Q6H PRN Administration FEVER OR PAIN Albuterol/Ipratropium 1 amp 03/28/17 21:03 04/05/17 11:13 Duoneb - NEB 1 amp Q6H PRN Administration SHORTNESS OF BREATH Aspirin 81 mg 03/29/17 10:00 04/04/17 10:40 Asa - PO Not Given DAILY J CARLOS Atorvastatin Calcium 10 mg 03/28/17 21:15 04/04/17 21:47 Lipitor - PO 10 mg HS J CARLOS Administration Furosemide 40 mg 03/29/17 10:00 04/05/17 10:33 Lasix - PO 40 mg DAILY J CARLOS Administration Hydromorphone HCl 2 mg 04/01/17 15:52 04/05/17 11:14 Dilaudid - PO 2 mg Q8H PRN Administration PAIN IV Flush 8 ml 04/04/17 10:40 Picc Line Flush IVPUSH PRN PRN Protocol Cefazolin Sodium/Dextrose 2 gm in 50 mls @ 100 mls/hr 04/01/17 14:00 10:34 Ancef 2 Gm Premixed Ivpb - IVPB 100 mls/hr Q8H-IV J CARLOS Administration Iron Sucrose 200 mg/ Sodium 110 mls @ 110 mls/hr 04/03/17 14:00 04/05/17 06: 19 Chloride IVPB 110 mls/hr DAILY@0600 J CARLOS Administration Insulin Aspart 1 vial 03/28/17 21:15 04/05/17 11:17 Novolog Vial Sliding Scale - SQ Not Given ACHS [facility] Protocol Insulin Detemir 20 units 03/29/17 07:00 04/05/17 06:19 Levemir Vial SQ 20 units AM J CARLOS Administration Insulin Detemir 30 units 04/04/17 22:28 Levemir Vial SQ HS [facility] Lactulose 20 gm 03/28/17 21:03 Cephulac (Oral Use) PO TID PRN CONSTIPATION Lisinopril 10 mg 03/29/17 10:00 04/05/17 10:33 Prinivil PO 10 mg DAILY J CARLOS Administration Nadolol 40 mg 03/29/17 10:00 04/05/17 10:34 Corgard - PO 40 mg DAILY J CARLOS Administration Pantoprazole Sodium 40 mg 03/29/17 10:00 04/05/17 10:33 Protonix - PO 40 mg DAILY J CARLOS Administration Ranolazine 1,000 mg 03/28/17 21:15 04/05/17 10:34 Ranexa - PO 1,000 mg BID J CARLOS Administration Rivaroxaban 10 mg 03/29/17 12:15 04/04/17 10:40 Xarelto - PO Not Given DAILY [facility] Spironolactone 25 mg 03/29/17 10:00 04/05/17 10:33 Aldactone - PO 25 mg DAILY J CARLOS Administration Patient with advanced liver disease/HCC/Decompensated cirrhosis/PVT/ Splenomegaly on xarelto who follows at [facility] is admitted for cellulitis. Anemia/Thrombocytopenia/coagulopathy, from the above, but also OM/Cellulitis/ Abx might be playing a role too. Anemia : c/w IV iron Coagulaopathy: reverse the INR now , with Vit K. Procedure for tomorrow. FFP at 300am, repeat blood work at 600am in the morning, further products to be given or not once the repeat labs in the am are obtained. Goal INR is 1.5. Xarelto/ASA on hold ID /Vascular/Podiatry consults noted Consider GI consult. post procedure, will need to repeat CBC tomorrow. will follow
[2017-04-05] MEDS ORDERED: PHYTONADIONE 10 MG/1 ML AMP IVPB ONE (14:00)
[2017-04-05] MEDS ORDERED: INSULIN (NOVOLOG) ASPART 100 UNITS/ML 10ML VIAL ONE (20:56)
[2017-04-05] MEDS: ATORVASTATIN CA 10 MG TABLET (FP) PO SCH (22:10)
[2017-04-06] MEDS: HYDROmorphone HCL 2 MG TABLET PO PRN ×2 (02:29→13:54)
[2017-04-06] MEDS: CEFAZOLIN 2 GM/D5W 2 GM/50 ML ML IVPB SCH ×3 (02:30→18:13)
[2017-04-06] MEDS: IRON SUCROSE INJECTION 200 MG in SODIUM CHLORIDE 100 ML IVPB SCH (06:34)
[2017-04-06] MEDS: INSULIN SLIDING SCALE (NOVOLOG) 1 VIAL SQ SCH ×4 (06:36→22:22)
[2017-04-06] MEDS: INSULIN DETEMIR 100 UNITS/ML MDV SQ SCH ×2 (06:40→22:21)
[2017-04-06 08:14] LABS: MCH 27.7 pg (25.7-33.7); MCHC 32.6 g/dl (32.0-35.9); MEAN CELL VOLUME 84.8 fl (80-96); MEAN PLT VOLUME 7.7 fl (7.5-11.1); PLATELET COUNT 134 K/MM3 (134-434); RDW 19.3 % (11.9-15.9)
[2017-04-06 08:29] LABS: INR 1.81 (0.82-1.09); PROTHROMBIN TIME (PATIENT) 20.4 SEC (9.98-11.88)
[2017-04-06 08:31] LABS: ACTIVATED PTT 39.2 SECONDS (26.9-34.4)
[2017-04-06 08:57] LABS: ALBUMIN 2.2 g/dl (3.4-5.0); ALK PHOS 183 U/L (45-117); ANION GAP 6 (8-16); BILIRUBIN,TOTAL 0.9 mg/dL (0.2-1.0); CALCIUM 8.3 mg/dL (8.5-10.1); CO2 25 mmol/L (21-32); CREATININE 1.3 mg/dL (0.7-1.3); GLUCOSE,RANDOM 79 mg/dL (74-106); SGOT/AST 46 U/L (15-37); SGPT/ALT 9 U/L (12-78); TOT PROT 6.4 g/dl (6.4-8.2)
[2017-04-06] MEDS ORDERED: PT OWN MED DRAWER 7, Y5N ONE ×3 (09:21→16:27)
[2017-04-06 10:59] LABS: TOTAL CELLS COUNTED 100
[2017-04-06 11:00] LABS: METAMYELOCYTE 3 % (0-2); PLATELET ESTIMATE ADEQUATE
--- NOTE | 2017-04-06 13:02 | PN ---
Progress Note (short form) - Note Progress Note: Patient seen and examined this am Patient is being treated for osteomyelitis/cellulitis presently. Patient mentioned that he is scheduled for TACE on 04/12 he did receive the procedure today, and also a PICC line. He feels well now. O/E: Constitutional: Yes: Well Nourished, No Distress, Calm Eyes: Yes: WNL, Conjunctiva Clear HENT: Yes: Normocephalic Neck: Yes: Supple, Trachea Midline Cardiovascular: Yes: WNL, Regular Rate and Rhythm, Bradycardia, S1, S2 Respiratory: Yes: Regular, CTA Bilaterally Gastrointestinal:+ obsesity, decreased in size compared to yesterday. Neurological: Yes: Alert, Oriented Last Vital Signs Temp Pulse Resp BP Pulse Ox 99.0 F 59 L 18 111/57 96 04/06/17 09:58 04/06/17 09:58 04/06/17 09:58 04/06/17 09:58 04/06/17 09:00 CBC, BMP 04/06/17 07:30 04/06/17 07:30 Current Medications Generic Name Dose Route Start Last Admin Trade Name Freq PRN Reason Stop Dose Admin Acetaminophen 650 mg 03/29/17 10:42 04/01/17 10:43 Tylenol - PO 650 mg Q6H PRN Administration FEVER OR PAIN Albuterol/Ipratropium 1 amp 03/28/17 21:03 04/05/17 11:13 Duoneb - NEB 1 amp Q6H PRN Administration SHORTNESS OF BREATH Aspirin 81 mg 03/29/17 10:00 04/04/17 10:40 Asa - PO Not Given DAILY J CARLOS Atorvastatin Calcium 10 mg 03/28/17 21:15 04/05/17 22:10 Lipitor - PO 10 mg HS J CARLOS Administration Furosemide 40 mg 03/29/17 10:00 04/05/17 10:33 Lasix - PO 40 mg DAILY J CARLOS Administration Hydromorphone HCl 2 mg 04/01/17 15:52 04/06/17 02:29 Dilaudid - PO 2 mg Q8H PRN Administration PAIN IV Flush 8 ml 04/04/17 10:40 Picc Line Flush IVPUSH PRN PRN Protocol Cefazolin Sodium/Dextrose 2 gm in 50 mls @ 100 mls/hr 04/01/17 14:00 09:40 Ancef 2 Gm Premixed Ivpb - IVPB 100 mls/hr Q8H-IV J CARLOS Administration Iron Sucrose 200 mg/ Sodium 110 mls @ 110 mls/hr 04/03/17 14:00 04/06/17 06: 34 Chloride IVPB 110 mls/hr DAILY@0600 J CARLOS Administration Insulin Aspart 1 vial 03/28/17 21:15 04/06/17 06:36 Novolog Vial Sliding Scale - SQ Not Given ACHS [facility] Protocol Insulin Detemir 20 units 03/29/17 07:00 04/06/17 06:40 Levemir Vial SQ 20 units AM J CARLOS Administration Insulin Detemir 30 units 04/04/17 22:28 04/05/17 22:09 Levemir Vial SQ 30 units HS J CARLOS Administration Lactulose 20 gm 03/28/17 21:03 Cephulac (Oral Use) PO TID PRN CONSTIPATION Lisinopril 10 mg 03/29/17 10:00 04/05/17 10:33 Prinivil PO 10 mg DAILY J CARLOS Administration Nadolol 40 mg 03/29/17 10:00 04/05/17 10:34 Corgard - PO 40 mg DAILY J CARLOS Administration Pantoprazole Sodium 40 mg 03/29/17 10:00 04/05/17 10:33 Protonix - PO 40 mg DAILY J CARLOS Administration Ranolazine 1,000 mg 03/28/17 21:15 04/05/17 22:12 Ranexa - PO 1,000 mg BID J CARLOS Administration Rivaroxaban 10 mg 03/29/17 12:15 04/04/17 10:40 Xarelto - PO Not Given DAILY J CARLOS Spironolactone 25 mg 03/29/17 10:00 04/05/17 10:33 Aldactone - PO 25 mg DAILY J CARLOS Administration Patient with advanced liver disease/HCC/Decompensated cirrhosis/PVT/ Splenomegaly on xarelto who follows at [facility] is admitted for cellulitis. Anemia/Thrombocytopenia/coagulopathy, from the above, but also OM/Cellulitis/ Abx might be playing a role too. Thrmobocytopenia: resolved Anemia : c/w IV iron ,One unit prbc today. Xarelto/ASA on hold ( likely re-start in the am) ID /Vascular/Podiatry consults noted
[2017-04-06] MEDS ORDERED: RANOLAZINE E.R. 500 MG TABLET (FP) ONE ×2 (13:18→21:39)
[2017-04-06] MEDS: NADOLOL 40 MG TABLET (FP) PO SCH (13:21)
[2017-04-06] MEDS: FUROSEMIDE 40 MG TABLET (FP) PO SCH (13:21)
[2017-04-06] MEDS: RANOLAZINE E.R. 1,000 MG TABLET (FP) PO SCH ×2 (13:21→22:20)
[2017-04-06] MEDS: LISINOPRIL 10 MG TABLET (FP) PO SCH (13:21)
[2017-04-06] MEDS: PANTOPRAZOLE 40 MG TABLET (FP) PO SCH (13:21)
[2017-04-06] MEDS: SPIRONOLACTONE 25 MG TABLET (FP) PO SCH (13:21)
--- NOTE | 2017-04-06 13:42 | PN ---
Progress Note (short form) - Note Progress Note: seen by podiatry foot debrided yesterday- less painful s/p paracentesis feels better Vital Signs Period Temp Pulse Resp BP Sys/Ferrell Pulse Ox Last 24 Hr 97.8 F-99.0 F 49-59 18-20 92-114/47-71 96-96 cor-rrr lungs decreased bs at base abd soft,nt ext less erythema and edema of the foot CBC, BMP 04/06/17 07:30 04/06/17 07:30 Microbiology 03/28/17 16:05 Blood - Peripheral Venous Blood Culture - Final NO GROWTH AFTER 5 DAYS INCUBATION 03/28/17 16:05 Blood - Peripheral Venous Blood Culture - Final NO GROWTH AFTER 5 DAYS INCUBATION 03/28/17 16:17 Toe - Left Second Gram Stain - Final 03/28/17 16:17 Toe - Left Second Wound Culture - Final Staphylococcus Aureus 03/29/17 15:00 Wound Gram Stain - Final 03/29/17 15:00 Wound Wound Culture - Final Staphylococcus Aureus Staphylococcus Coagulase Neg imp/reccd 57 year old man with DM and liver cirrhosis/liver cancer cellulitis osteomyelitis MSSA continue cefazolin-avoiding ceftriaxone due to extensive liver disease f/u bone culture/wound culture done yesterday he is not ready for discharge hopefully Tuesday or Tuesday picc line is in Problem List - Problems (1) Cellulitis Code(s): L03.90 - CELLULITIS, UNSPECIFIED Qualifiers: Site of cellulitis of extremity: toe Laterality: unspecified laterality (2) Osteomyelitis Code(s): M86.9 - OSTEOMYELITIS, UNSPECIFIED Qualifiers: Osteomyelitis location: foot Laterality: left
--- NOTE | 2017-04-06 18:03 | PN ---
Progress Note, Physician History of Present Illness: -NAD -seen by podiatry -foot debrided yesterday at bedside -s/p paracentesis -feels better -PICC line inserted today -on IV abx for osteomyelitis - Current Medication List Current Medications: Active Medications Acetaminophen (Tylenol -) 650 mg PO Q6H PRN PRN Reason: FEVER OR PAIN Last Admin: 04/01/17 10:43 Dose: 650 mg Albuterol/Ipratropium (Duoneb -) 1 amp NEB Q6H PRN PRN Reason: SHORTNESS OF BREATH Last Admin: 04/05/17 11:13 Dose: 1 amp Aspirin (Asa -) 81 mg PO DAILY [facility] Last Admin: 04/04/17 10:40 Dose: Not Given Atorvastatin Calcium (Lipitor -) 10 mg PO HS J CARLOS Last Admin: 04/05/17 22:10 Dose: 10 mg Furosemide (Lasix -) 40 mg PO DAILY [facility] Last Admin: 04/06/17 13:21 Dose: 40 mg Hydromorphone HCl (Dilaudid -) 2 mg PO Q8H PRN PRN Reason: PAIN Last Admin: 04/06/17 13:54 Dose: 2 mg IV Flush (Picc Line Flush) 8 ml IVPUSH PRN PRN PRN Reason: Protocol Cefazolin Sodium/Dextrose (Ancef 2 Gm Premixed Ivpb -) 2 gm in 50 mls @ 100 mls /hr IVPB Q8H-IV J CARLOS Last Admin: 04/06/17 09:40 Dose: 100 mls/hr Iron Sucrose 200 mg/ Sodium (Chloride) 110 mls @ 110 mls/hr IVPB DAILY@0600 [facility] Last Admin: 04/06/17 06:34 Dose: 110 mls/hr Insulin Aspart (Novolog Vial Sliding Scale -) 1 vial SQ ACHS J CARLOS PRN Reason: Protocol Last Admin: 04/06/17 16:26 Dose: Not Given Insulin Detemir (Levemir Vial) 20 units SQ AM J CARLOS Last Admin: 04/06/17 06:40 Dose: 20 units Insulin Detemir (Levemir Vial) 30 units SQ HS [facility] Last Admin: 04/05/17 22:09 Dose: 30 units Lactulose (Cephulac (Oral Use)) 20 gm PO TID PRN PRN Reason: CONSTIPATION Lisinopril (Prinivil) 10 mg PO DAILY [facility] Last Admin: 04/06/17 13:21 Dose: 10 mg Nadolol (Corgard -) 40 mg PO DAILY [facility] Last Admin: 04/06/17 13:21 Dose: 40 mg Pantoprazole Sodium (Protonix -) 40 mg PO DAILY [facility] Last Admin: 04/06/17 13:21 Dose: 40 mg Ranolazine (Ranexa -) 1,000 mg PO BID [facility] Last Admin: 04/06/17 13:21 Dose: 1,000 mg Rivaroxaban (Xarelto -) 10 mg PO DAILY [facility] Last Admin: 04/04/17 10:40 Dose: Not Given Spironolactone (Aldactone -) 25 mg PO DAILY [facility] Last Admin: 04/06/17 13:21 Dose: 25 mg - Objective Vital Signs: Vital Signs Temperature 98.3 F 04/06/17 14:33 Pulse Rate 58 L 04/06/17 14:33 Respiratory Rate 20 04/06/17 14:33 Blood Pressure 100/58 04/06/17 14:33 O2 Sat by Pulse Oximetry (%) 96 04/06/17 09:00 Constitutional: Yes: Well Nourished, No Distress, Calm Cardiovascular: Yes: Regular Rate and Rhythm Respiratory: Yes: Regular Gastrointestinal: Yes: Normal Bowel Sounds Wound/Incision: Yes: Well Approximated, Dressing Dry and Intact Neurological: Yes: Alert, Oriented Psychiatric: Yes: Alert, Oriented Labs: CBC, BMP 04/06/17 07:30 04/06/17 07:30 INR, PTT INR 1.81 (0.82-1.09) H D 04/06/17 07:30 Fibrinogen 388.0 mg/dL (238-498) D 04/06/17 07:30 Problem List - Problems (1) Cellulitis of toe, left Assessment/Plan: -seen by ID and Vascular sx -MRI LLE osteomyelitis -IV abx -repeat labs in AM -Wound Culture MSSA Code(s): L03.032 - CELLULITIS OF LEFT TOE (2) Diabetes mellitus, insulin dependent (IDDM), uncontrolled Assessment/Plan: -A1C 7.2 -insulin -endocrine consult Code(s): E10.65 - TYPE 1 DIABETES MELLITUS WITH HYPERGLYCEMIA (3) Anemia Assessment/Plan: -Likely secondary to chronic disease -check b12,FA,tsh,iron profile -1 unit of prbc -repeat labs in AM Code(s): D64.9 - ANEMIA, UNSPECIFIED (4) Osteomyelitis Assessment/Plan: -PICC line -medical terminologist abx -seen by ID Code(s): M86.9 - OSTEOMYELITIS, UNSPECIFIED Qualifiers: Osteomyelitis location: foot Laterality: left (5) Elevated INR Assessment/Plan: secondayr to liver disease ASA and Xarelto on hold seen by hematology Code(s): R79.1 - ABNORMAL COAGULATION PROFILE Assessment/Plan see problem list
[2017-04-06] MEDS ORDERED: HYDROmorphone HCL 2 MG TABLET PO ONE (20:30)
[2017-04-06] MEDS ORDERED: INSULIN (NOVOLOG) ASPART 100 UNITS/ML 10ML VIAL ONE (21:39)
[2017-04-06] MEDS: ATORVASTATIN CA 10 MG TABLET (FP) PO SCH (22:06)
[2017-04-07] MEDS ORDERED: PT OWN MED DRAWER 7, Y5N ONE ×4 (00:59→17:12)
[2017-04-07] MEDS: CEFAZOLIN 2 GM/D5W 2 GM/50 ML ML IVPB SCH ×3 (01:11→17:24)
[2017-04-07] MEDS: INSULIN DETEMIR 100 UNITS/ML MDV SQ SCH ×2 (06:30→23:40)
[2017-04-07] MEDS: INSULIN SLIDING SCALE (NOVOLOG) 1 VIAL SQ SCH ×4 (06:31→23:39)
[2017-04-07] MEDS ORDERED: INSULIN DETEMIR 100 UNITS/ML MDV SQ ONE (06:44)
[2017-04-07] MEDS ORDERED: INSULIN (NOVOLOG) ASPART 100 UNITS/ML 10ML VIAL ONE (06:44)
[2017-04-07 08:09] LABS: BASOPHIL 0.3 % (0-2.0); EOSINOPHIL 0.3 % (0-4.5); MCH 27.9 pg (25.7-33.7); MCHC 33.1 g/dl (32.0-35.9); MEAN CELL VOLUME 84.3 fl (80-96); MEAN PLT VOLUME 7.6 fl (7.5-11.1); NEUTROPHILS 86.4 % (42.8-82.8); PLATELET COUNT 137 K/MM3 (134-434); RDW 19.9 % (11.9-15.9); WHITE BLOOD COUNT 8.9 K/mm3 (4.0-10.0)
[2017-04-07 08:13] LABS: INR 1.5 (0.82-1.09)
[2017-04-07 08:16] LABS: ACTIVATED PTT 33.9 SECONDS (26.9-34.4)
[2017-04-07 08:32] LABS: ALK PHOS 181 U/L (45-117); ANION GAP 7 (8-16); BILIRUBIN,TOTAL 1.5 mg/dL (0.2-1.0); CALCIUM 7.7 mg/dL (8.5-10.1); CO2 23 mmol/L (21-32); CREATININE 1.1 mg/dL (0.7-1.3); GLUCOSE,RANDOM 119 mg/dL (74-106); SGOT/AST 46 U/L (15-37); SGPT/ALT 7 U/L (12-78)
[2017-04-07] MEDS ORDERED: RANOLAZINE E.R. 500 MG TABLET (FP) ONE ×2 (10:00→23:33)
[2017-04-07] MEDS: PANTOPRAZOLE 40 MG TABLET (FP) PO SCH (10:57)
[2017-04-07] MEDS: SPIRONOLACTONE 25 MG TABLET (FP) PO SCH (10:57)
[2017-04-07] MEDS: FUROSEMIDE 40 MG TABLET (FP) PO SCH (10:57)
[2017-04-07] MEDS: ASPIRIN 81 MG CHEWABLE TABLETS PO SCH (10:57)
[2017-04-07] MEDS: LISINOPRIL 10 MG TABLET (FP) PO SCH (10:57)
[2017-04-07] MEDS: RANOLAZINE E.R. 1,000 MG TABLET (FP) PO SCH ×2 (10:58→23:36)
[2017-04-07] MEDS: NADOLOL 40 MG TABLET (FP) PO SCH (10:59)
[2017-04-07] MEDS: RIVAROXABAN 10 MG TABLET PO SCH (11:00)
--- NOTE | 2017-04-07 11:50 | PN ---
Progress Note (short form) - Note Progress Note: Patient seen and examined this am Patient is being treated for osteomyelitis/cellulitis presently. He feels well, pain controlled, no shortness of breath, chest paiin O/E: Constitutional: Yes: Well Nourished, No Distress, Calm Eyes: Yes: WNL, Conjunctiva Clear HENT: Yes: Normocephalic Neck: Yes: Supple, Trachea Midline Cardiovascular: Yes: WNL, Regular Rate and Rhythm, Bradycardia, S1, S2 Respiratory: Yes: Regular, CTA Bilaterally Gastrointestinal:+ obsesity, at his baseline per him. Neurological: Yes: Alert, Oriented Last Vital Signs Temp Pulse Resp BP Pulse Ox 98.0 F 54 L 18 98/56 98 04/07/17 06:00 04/07/17 06:00 04/07/17 06:00 04/07/17 06:00 04/06/17 21:00 CBC, BMP 04/07/17 06:30 04/07/17 06:30 Current Medications Generic Name Dose Route Start Last Admin Trade Name Freq PRN Reason Stop Dose Admin Acetaminophen 650 mg 03/29/17 10:42 04/01/17 10:43 Tylenol - PO 650 mg Q6H PRN Administration FEVER OR PAIN Albuterol/Ipratropium 1 amp 03/28/17 21:03 04/05/17 11:13 Duoneb - NEB 1 amp Q6H PRN Administration SHORTNESS OF BREATH Aspirin 81 mg 03/29/17 10:00 04/07/17 10:57 Asa - PO 81 mg DAILY J CARLOS Administration Atorvastatin Calcium 10 mg 03/28/17 21:15 04/06/17 22:06 Lipitor - PO 10 mg HS J CARLOS Administration Furosemide 40 mg 03/29/17 10:00 04/07/17 10:57 Lasix - PO 40 mg DAILY J CARLOS Administration Hydromorphone HCl 2 mg 04/01/17 15:52 04/06/17 13:54 Dilaudid - PO 2 mg Q8H PRN Administration PAIN IV Flush 8 ml 04/04/17 10:40 Picc Line Flush IVPUSH PRN PRN Protocol Cefazolin Sodium/Dextrose 2 gm in 50 mls @ 100 mls/hr 04/01/17 14:00 10:58 Ancef 2 Gm Premixed Ivpb - IVPB 100 mls/hr Q8H-IV J CARLOS Administration Insulin Aspart 1 vial 03/28/17 21:15 04/07/17 06:31 Novolog Vial Sliding Scale - SQ Not Given ACHS [facility] Protocol Insulin Detemir 20 units 03/29/17 07:00 04/07/17 06:30 Levemir Vial SQ Not Given AM [facility] Insulin Detemir 30 units 04/04/17 22:28 04/06/17 22:21 Levemir Vial SQ 30 units HS [facility] Administration Lactulose 20 gm 03/28/17 21:03 Cephulac (Oral Use) PO TID PRN CONSTIPATION Lisinopril 10 mg 03/29/17 10:00 04/07/17 10:57 Prinivil PO 10 mg DAILY J CARLOS Administration Nadolol 40 mg 03/29/17 10:00 04/07/17 10:59 Corgard - PO 40 mg DAILY J CARLOS Administration Pantoprazole Sodium 40 mg 03/29/17 10:00 04/07/17 10:57 Protonix - PO 40 mg DAILY J CARLOS Administration Ranolazine 1,000 mg 03/28/17 21:15 04/07/17 10:58 Ranexa - PO 1,000 mg BID J CARLOS Administration Rivaroxaban 10 mg 03/29/17 12:15 04/07/17 11:00 Xarelto - PO 10 mg DAILY J CARLOS Administration Spironolactone 25 mg 03/29/17 10:00 04/07/17 10:57 Aldactone - PO 25 mg DAILY J CARLOS Administration Patient with advanced liver disease/HCC/Decompensated cirrhosis/PVT/ Splenomegaly on xarelto for PVT who follows at [facility] is admitted for cellulitis/ osteomyelitis Anemia/Thrombocytopenia/coagulopathy, from the above. INR improved. s/p paracentesis Thrmobocytopenia: resolved Anemia : s/p IV iron ,One unit prbc given on 04/06 Xarelto/ASA on hold, to re-start. ID /Vascular/Podiatry consults noted for HCC, Need to follow-up with his [facility] Cylinder Honer on 04/12 as planned upon discharge. d/c per PMD/ID
--- NOTE | 2017-04-07 12:06 | PN ---
Progress Note, Physician History of Present Illness: Patient is awake and alert, denies CP, denies SOB, afebrile, not is respiratory distress. Patient verbalized that he feels much better today. - Current Medication List Current Medications: Active Medications Acetaminophen (Tylenol -) 650 mg PO Q6H PRN PRN Reason: FEVER OR PAIN Last Admin: 04/01/17 10:43 Dose: 650 mg Albuterol/Ipratropium (Duoneb -) 1 amp NEB Q6H PRN PRN Reason: SHORTNESS OF BREATH Last Admin: 04/05/17 11:13 Dose: 1 amp Aspirin (Asa -) 81 mg PO DAILY [facility] Last Admin: 04/07/17 10:57 Dose: 81 mg Atorvastatin Calcium (Lipitor -) 10 mg PO HS [facility] Last Admin: 04/06/17 22:06 Dose: 10 mg Furosemide (Lasix -) 40 mg PO DAILY [facility] Last Admin: 04/07/17 10:57 Dose: 40 mg Hydromorphone HCl (Dilaudid -) 2 mg PO Q8H PRN PRN Reason: PAIN Last Admin: 04/06/17 13:54 Dose: 2 mg IV Flush (Picc Line Flush) 8 ml IVPUSH PRN PRN PRN Reason: Protocol Cefazolin Sodium/Dextrose (Ancef 2 Gm Premixed Ivpb -) 2 gm in 50 mls @ 100 mls /hr IVPB Q8H-IV J CARLOS Last Admin: 04/07/17 10:58 Dose: 100 mls/hr Insulin Aspart (Novolog Vial Sliding Scale -) 1 vial SQ ACHS J CARLOS PRN Reason: Protocol Last Admin: 04/07/17 06:31 Dose: Not Given Insulin Detemir (Levemir Vial) 20 units SQ AM J CARLOS Last Admin: 04/07/17 06:30 Dose: Not Given Insulin Detemir (Levemir Vial) 30 units SQ HS J CARLOS Last Admin: 04/06/17 22:21 Dose: 30 units Lactulose (Cephulac (Oral Use)) 20 gm PO TID PRN PRN Reason: CONSTIPATION Lisinopril (Prinivil) 10 mg PO DAILY [facility] Last Admin: 04/07/17 10:57 Dose: 10 mg Nadolol (Corgard -) 40 mg PO DAILY [facility] Last Admin: 04/07/17 10:59 Dose: 40 mg Pantoprazole Sodium (Protonix -) 40 mg PO DAILY [facility] Last Admin: 04/07/17 10:57 Dose: 40 mg Ranolazine (Ranexa -) 1,000 mg PO BID [facility] Last Admin: 04/07/17 10:58 Dose: 1,000 mg Rivaroxaban (Xarelto -) 10 mg PO DAILY [facility] Last Admin: 04/07/17 11:00 Dose: 10 mg Spironolactone (Aldactone -) 25 mg PO DAILY [facility] Last Admin: 04/07/17 10:57 Dose: 25 mg - Objective Vital Signs: Vital Signs Temperature 98.0 F 04/07/17 06:00 Pulse Rate 54 L 04/07/17 06:00 Respiratory Rate 18 04/07/17 06:00 Blood Pressure 98/56 04/07/17 06:00 O2 Sat by Pulse Oximetry (%) 98 04/06/17 21:00 Constitutional: Yes: No Distress, Calm Eyes: Yes: Conjunctiva Clear, EOM Intact HENT: Yes: Atraumatic, Normocephalic Neck: Yes: Supple Cardiovascular: Yes: Regular Rate and Rhythm, Bradycardia (HR=54bpm), S1, S2 Respiratory: Yes: Regular, CTA Bilaterally Gastrointestinal: Yes: Normal Bowel Sounds, Abdomen, Obese. No: Tenderness Peripheral Pulses WNL: Yes Neurological: Yes: Alert, Oriented Labs: CBC, BMP 04/07/17 06:30 04/07/17 06:30 INR, PTT INR 1.50 (0.82-1.09) H 04/07/17 06:30 Fibrinogen 388.0 mg/dL (238-498) D 04/06/17 07:30 Problem List - Problems (1) Anemia Code(s): D64.9 - ANEMIA, UNSPECIFIED (2) Cellulitis Code(s): L03.90 - CELLULITIS, UNSPECIFIED Qualifiers: Site of cellulitis of extremity: toe Laterality: unspecified laterality (3) Osteomyelitis Code(s): M86.9 - OSTEOMYELITIS, UNSPECIFIED Qualifiers: Osteomyelitis location: foot Laterality: left (4) CAD (coronary artery disease) Code(s): I25.10 - ATHSCL HEART DISEASE OF [place] CORONARY ARTERY W/O ANG PCTRS (5) DM Diabetes mellitus Code(s): E11.9 - TYPE 2 DIABETES MELLITUS WITHOUT COMPLICATIONS Assessment/Plan (1) Cellulitis of toe, left Assessment/Plan: -ID and Vascular on board -MRI LLE osteomyelitis -Wound Culture MSSA -Continue IV abx (2) Diabetes mellitus, insulin dependent (IDDM), uncontrolled Assessment/Plan: -BGM -insulin -endocrine consult (3) Anemia Assessment/Plan: -S/P 1 unit of prbc -H&H 04/06=7/21.5 04/07=8.3/25.3 -Monitor labs (4) Osteomyelitis Assessment/Plan: -PICC line -snf abx (4) CAD (coranary artery disease) Assessment/Plan: -Continue ASA -Continue Ranolazine -Continue Statin
[2017-04-07] MEDS: HYDROmorphone HCL 2 MG TABLET PO PRN (18:11)
[2017-04-07] MEDS: ATORVASTATIN CA 10 MG TABLET (FP) PO SCH (23:36)
[2017-04-08] MEDS ORDERED: PT OWN MED DRAWER 7, Y5N ONE ×2 (01:23→11:12)
[2017-04-08] MEDS: CEFAZOLIN 2 GM/D5W 2 GM/50 ML ML IVPB SCH ×2 (02:07→11:29)
[2017-04-08] MEDS: INSULIN DETEMIR 100 UNITS/ML MDV SQ SCH (06:34)
[2017-04-08] MEDS: INSULIN SLIDING SCALE (NOVOLOG) 1 VIAL SQ SCH ×2 (06:50→12:06)
[2017-04-08 07:39] LABS: BASOPHIL 0.4 % (0-2.0); EOSINOPHIL 0.2 % (0-4.5); MCH 27.4 pg (25.7-33.7); MEAN CELL VOLUME 85.4 fl (80-96); MEAN PLT VOLUME 7.6 fl (7.5-11.1); PLATELET COUNT 132 K/MM3 (134-434); WHITE BLOOD COUNT 8.6 K/mm3 (4.0-10.0)
[2017-04-08 08:00] LABS: INR 2.19 (0.82-1.09); PROTHROMBIN TIME (PATIENT) 24.7 SEC (9.98-11.88)
[2017-04-08 08:02] LABS: ALBUMIN 1.8 g/dl (3.4-5.0); ANION GAP 7 (8-16); BILIRUBIN,TOTAL 1.2 mg/dL (0.2-1.0); CO2 24 mmol/L (21-32); GLUCOSE,RANDOM 137 mg/dL (74-106); SGOT/AST 37 U/L (15-37); SGPT/ALT < 6 U/L (12-78); TOT PROT 5.8 g/dl (6.4-8.2)
[2017-04-08 08:03] LABS: ALK PHOS 182 U/L (45-117); CALCIUM 7.7 mg/dL (8.5-10.1); CREATININE 1.1 mg/dL (0.7-1.3)
[2017-04-08 08:04] LABS: ACTIVATED PTT 34.9 SECONDS (26.9-34.4)
--- NOTE | 2017-04-08 10:49 | PN ---
Progress Note (short form) - Note Progress Note: foot is no longer painful eating well no fevers Vital Signs Period Temp Pulse Resp BP Sys/Ferrell Pulse Ox Last 24 Hr 97.9 F-98.0 F 47-53 18-22 93-114/54-62 98 cor-rrr lungs decreased bs at bases abd soft, nt +fluid ext wound site- no drainage, still some erythema of the dorsum of the foot- CBC, BMP 04/08/17 06:00 04/08/17 06:00 Microbiology 04/05/17 18:00 Bone Gram Stain - Final 04/05/17 18:00 Bone Tissue Culture - Preliminary Staphylococcus Aureus 04/05/17 18:00 Foot - Left Gram Stain - Final 04/05/17 18:00 Foot - Left Wound Culture - Preliminary Presumptive Mssa (Pbp2a Neg) 03/28/17 16:05 Blood - Peripheral Venous Blood Culture - Final NO GROWTH AFTER 5 DAYS INCUBATION 03/28/17 16:05 Blood - Peripheral Venous Blood Culture - Final NO GROWTH AFTER 5 DAYS INCUBATION 03/28/17 16:17 Toe - Left Second Gram Stain - Final 03/28/17 16:17 Toe - Left Second Wound Culture - Final Staphylococcus Aureus 03/29/17 15:00 Wound Gram Stain - Final 03/29/17 15:00 Wound Wound Culture - Final Staphylococcus Aureus Staphylococcus Coagulase Neg imp/reccd 57 year old man with DM and liver cirrhosis/liver cancer cellulitis osteomyelitis MSSA continue cefazolin-avoiding ceftriaxone due to extensive liver disease plan minimum 6 weeks iv antibiotics bone culture/wound culture- all MSSA repeat esr/crp f/u podiatry -wound care can f/u i our office as well f Problem List - Problems (1) Cellulitis Code(s): L03.90 - CELLULITIS, UNSPECIFIED Qualifiers: Site of cellulitis of extremity: toe Laterality: unspecified laterality (2) Osteomyelitis Code(s): M86.9 - OSTEOMYELITIS, UNSPECIFIED Qualifiers: Osteomyelitis location: foot Laterality: left
[2017-04-08 10:56] LABS: C-REACTIVE PROTEIN 6.9 MG/DL (0.00-0.3)
[2017-04-08] MEDS ORDERED: RANOLAZINE E.R. 500 MG TABLET (FP) ONE (11:11)
[2017-04-08] MEDS: ASPIRIN 81 MG CHEWABLE TABLETS PO SCH (11:30)
[2017-04-08] MEDS: PANTOPRAZOLE 40 MG TABLET (FP) PO SCH (11:30)
[2017-04-08] MEDS: RANOLAZINE E.R. 1,000 MG TABLET (FP) PO SCH (11:30)
[2017-04-08] MEDS: RIVAROXABAN 10 MG TABLET PO SCH (11:31)
[2017-04-08] MEDS: NADOLOL 40 MG TABLET (FP) PO SCH (11:32)
[2017-04-08] MEDS: SPIRONOLACTONE 25 MG TABLET (FP) PO SCH ×2 (11:32→12:26)
[2017-04-08] MEDS: FUROSEMIDE 40 MG TABLET (FP) PO SCH ×2 (11:32→12:26)
[2017-04-08] MEDS: LISINOPRIL 10 MG TABLET (FP) PO SCH (11:32)
--- NOTE | 2017-04-08 12:53 | DS ---
Physical Examination Vital Signs: Vital Signs Temperature 98.3 F 04/08/17 11:24 Pulse Rate 50 L 04/08/17 12:09 Respiratory Rate 20 04/08/17 12:09 Blood Pressure 119/66 04/08/17 12:09 O2 Sat by Pulse Oximetry (%) 98 04/07/17 21:00 Labs: CBC, BMP 04/08/17 06:00 04/08/17 06:00 Discharge Summary Reason For Visit: CELLULITIS Current Active Problems Anemia (Acute) Cellulitis (Acute) Cellulitis of toe, left (Acute) Elevated INR (Acute) Lactic acidosis (Acute) Leg weakness (Acute) Osteomyelitis (Acute) Type 2 diabetes mellitus with diabetic polyneuropathy (Acute) Hospital Course: CP: cecilia Duran - Admission Chief Complaint: cellulitis History of Present Illness: Patient is a 57 year old male with significant medical hx of IDDM, CAD s/p 4 cardiac stents, HTN, chronic liver disease, liver CA (currently on waiting list for liver transplant), multiple bilateral toe amputations, esophageal varices, gastritis, diabetic neuropathy, and colitis who is presenting to the ED with an injury to the fourth toe, s/p amputation 6 months prior, walked into furniture 2 days ago. Area started bleeding and small open area noted ,and now with redness and swelling to the dorsum of the left foot. Low-grade fever, denies chills or rigor. Drainage to area this am. History Source: Patient Limitations to Obtaining History: No Limitations - Past Medical History [employer]: Yes: Peripheral Neuropathy Cardiovascular: Yes: CAD, HTN, Hyperlipdemia Gastrointestinal: Yes: Ascites, Esophageal Varices, Gastritis, GI Bleed, Hemorrhoids, Other Hepatobiliary: Yes: Cirrhosis (h/o esophageal varices s/p banding, related to HERNANDEZ), Cholelithiasis (s/p lap choly), Other (PORTAL VEIN PARTIAL THROMBOSIS, HCC treated with transhepatic heat ablations at [facility]) Renal/: Yes: Renal Inusuff Heme/Onc: Yes: Anemia, Thrombocytopenia Endocrine: Yes: Diabetes Mellitus - Past Surgical History Past Surgical History: Yes: Hernia Repair, Colonoscopy, Upper Endoscopy, Amputation, Cholecystectomy MRI of foot s/p amputation of left foot mid proxminal phalanx with surround edema of the residual phalanx - osteo seen by podiatry incision and drainage done seen by ID as well picc line placed stared on cefazolin no rocephin given extensive liver disease needs abx for total of 6 weeks- got one week of iv abx at hospital weekly labs and esr-crp. left foot wound bactroban with DSD FU at wound care clinic liver cancer Fu ar [facility] on 04/12 liver cirrhosis and ascites got ffp and vitamin K and s/p paracentesis on - xarelto was held for procedure then restarted left foot erythema and swelling had duplex done normal result- on iv abx for oste- erythema is slightly better to go home with [facility] services on xarelto for portal vein thrombosis Condition: Improved - Instructions Diet, Activity, Other Instructions: CBC, CMP,ESR,CRP weekly antibiotic for 5 weeks to complete the course left foot wound bactroban with DSD FU at wound care clinic with Dr Kumar FU at [facility] with Dr Jones on 04/12 as scheduled Referrals: Cecilia Duran MD [Primary Care Provider] - Beka Aguirre MD [Staff Physician] - (at wound care clinic next week) Disposition: VNS/HOME HEALTH CARE - Home Medications Comprehensive Discharge Medication List: Ambulatory Orders Furosemide [Lasix] 40 mg PO DAILY 07/15/16 Insulin Detemir [Levemir Flextouch] 40 unit SQ DAILY 07/15/16 Multivitamins [Multivit ([facility] Formulary)] 1 tab PO DAILY 07/15/16 Nateglinide [Starlix (Nf) -] 60 mg PO BID 07/15/16 Metformin HCl 500 mg PO BID 08/09/16 Aspirin [ASA -] 81 mg PO DAILY tab.chew 10/30/16 Lactulose (Oral Use) [Cephulac -] 20 gm PO BID #1 bottle 10/30/16 Spironolactone [Aldactone -] 50 mg PO DAILY tablet 10/30/16 Albuterol 2.5/Ipratropium 0.5 [Duoneb -] 1 amp NEB QIDR #30 amp 12/11/16 Atorvastatin Ca [Lipitor] 10 mg PO HS #30 tab 12/11/16 Insulin (Levemir) [Levemir Vial] 20 units SQ HS ml 12/11/16 Nadolol 20 mg PO DAILY #30 tab 12/11/16 Pantoprazole Sodium [Protonix] 40 mg PO DAILY #30 tab 12/11/16 Ranolazine [Ranexa] 1,000 mg PO BID #60 tab 12/11/16 Rivaroxaban [Xarelto -] 20 mg PO DAILY #30 tablet 12/11/16 Benazepril HCl [Lotensin] 20 mg PO DAILY 03/28/17 Ergocalciferol (Vitamin D2) [Vitamin D2] 50,000 unit PO DAILY 03/28/17
[2017-04-08] MEDS ORDERED: HYDROmorphone HCL 2 MG TABLET PO PRN (12:55)
[2017-04-08] MEDS ORDERED: MUPIROCIN 2% TOPICAL OINTMENT 22 GM TUBE TP SCH (13:00)
[2017-04-08 15:01] VITALS: BP 106/53; PULSE 49; TEMP 98.4
== END 2017-04-08 16:28 | disposition home health service (06) | DRG 629 ==
LOC: JER 15:16 → JERBED 18:10 → J5S 20:57
PROVIDERS: ADMIT Family Medicine; ATTEND Family Medicine
PROC: 0QBP0ZZ Excision of Left Metatarsal, Open Approach (ICD-10-PCS; principal; 2017-04-05)
PROC: 0W9G3ZX Drainage of Peritoneal Cavity, Percutaneous Approach, Diagnostic (ICD-10-PCS; 2017-04-06)
PROC: 02HV33Z Insertion of Infusion Device into Superior Vena Cava, Percutaneous Approach (ICD-10-PCS; 2017-04-06)
PROC: 30233K1 Transfusion of Nonautologous Frozen Plasma into Peripheral Vein, Percutaneous Approach (ICD-10-PCS; 2017-04-06)
PROC: 30233N1 Transfusion of Nonautologous Red Blood Cells into Peripheral Vein, Percutaneous Approach (ICD-10-PCS; 2017-04-06)
DX: E11.621 Type 2 diabetes mellitus with foot ulcer (principal); C22.8 Malignant neoplasm of liver, primary, unspecified as to type; I85.00 Esophageal varices without bleeding; M86.8X7 Other osteomyelitis, ankle and foot; D68.8 Other specified coagulation defects; I47.1 Supraventricular tachycardia; E87.2 Acidosis; L03.032 Cellulitis of left toe; I25.10 Atherosclerotic heart disease of native coronary artery without angina pectoris; E11.42 Type 2 diabetes mellitus with diabetic polyneuropathy; K29.60 Other gastritis without bleeding; I10 Essential (primary) hypertension; E78.5 Hyperlipidemia, unspecified; K64.8 Other hemorrhoids; D69.6 Thrombocytopenia, unspecified; E11.65 Type 2 diabetes mellitus with hyperglycemia; D63.8 Anemia in other chronic diseases classified elsewhere; F41.8 Other specified anxiety disorders; R61 Generalized hyperhidrosis; K70.31 Alcoholic cirrhosis of liver with ascites; R14.0 Abdominal distension (gaseous); R16.1 Splenomegaly, not elsewhere classified; A49.01 Methicillin susceptible Staphylococcus aureus infection, unspecified site; R53.1 Weakness; E66.8 Other obesity; Z68.22 Body mass index [BMI] 22.0-22.9, adult; W18.39XA Other fall on same level, initial encounter; Y92.238 Other place in hospital as the place of occurrence of the external cause; Z95.5 Presence of coronary angioplasty implant and graft; Z89.421 Acquired absence of other right toe(s); Z89.422 Acquired absence of other left toe(s); Z79.4 Long term (current) use of insulin
CPT/HCPCS: 36415; 36430; 36569; 70450-TC; 71010-TC; 72125-TC; 73630-TC-LT; 73718-LT; 76700-TC; 76942-TC; 77001-TC; 80048; 80053; 80061; 82248; 82607; 82728; 82746; 83036; 83540; 83550; 83605; 83721; 85025; 85027; 85384; 85610; 85651; 85730; 86140; 86850; 86900; 86901; 86922; 87040; 87070; 87075; 87077; 87186; 87205; 90688; 90732; 93005; 93010; 93923; 93925-TC; 93970-TC; 94640; 97116-GP; 97161-GP; 99283-25; C1751; G0008; G0009; G0480; J1756; P9017; P9038; P9058

== ENCOUNTER 2017-05-10 13:25 | Inpatient (IN) | payer MEDICARE, OTHER ==
--- NOTE | 2017-05-10 17:35 | PDOC ---
History of Present Illness - General Chief Complaint: Pain, Acute Stated Complaint: ascitis FLUID IN STOMACH Time Seen by Provider: 05/10/17 17:02 History Source: Patient Exam Limitations: No Limitations - History of Present Illness Initial Comments: 05/10/17 17:19 The patient is a 57M with a PMH of IDDM, CAD s/p 4 cardiac stents, HTN, chronic liver disease, liver CA (currently on waiting list for liver transplant), multiple bilateral toe amputations, esophageal varices, gastritis, diabetic neuropathy, and colitis who presents to the ED with a note from Dr. Neil Gasca' s office stating to admit for paracentesis. The patient states that he wants his abdomen to be tapped. The patient is unaware that he was sent here to be admitted. He denies any symptoms of CP, SOB, nausea, vomiting, fever, chills. Past History - Past Medical History Allergies/Adverse Reactions: Allergies Allergy/AdvReac Type Severity Reaction Status Date / Time Iodinated Contrast- Oral and Allergy Verified 05/10/17 13:27 IV Dye [Iodinated Contrast Media - IV Dye] Home Medications: Ambulatory Orders Furosemide [Lasix] 40 mg PO DAILY 07/15/16 Insulin Detemir [Levemir Flextouch] 40 unit SQ DAILY 07/15/16 Multivitamins [Multivit ([facility] Formulary)] 1 tab PO DAILY 07/15/16 Nateglinide [Starlix (Nf) -] 60 mg PO BID 07/15/16 Metformin HCl 500 mg PO BID 08/09/16 Aspirin [ASA -] 81 mg PO DAILY tab.chew 10/30/16 Albuterol 2.5/Ipratropium 0.5 [Duoneb -] 1 amp NEB QIDR #30 amp 12/11/16 Atorvastatin Ca [Lipitor] 10 mg PO HS #30 tab 12/11/16 Nadolol 20 mg PO DAILY #30 tab 12/11/16 Pantoprazole Sodium [Protonix] 40 mg PO DAILY #30 tab 12/11/16 Benazepril HCl [Lotensin] 20 mg PO DAILY 03/28/17 Ergocalciferol (Vitamin D2) [Vitamin D2] 50,000 unit PO DAILY 03/28/17 Collagenase Clostridium Hist. [Santyl] 1 applic TP DAILY #90 oint...g. 05/02/17 Insulin (Levemir) [Levemir Vial] 40 units SQ HS 05/11/17 Spironolactone [Aldactone -] 100 mg PO DAILY #30 tablet 05/13/17 Sucralfate [Carafate -] 1 gm PO QID #120 tablet 05/13/17 Anemia: Yes Asthma: No Cancer: Yes (LIVER) Cardiac Disorders: Yes CVA: No COPD: No CHF: No DVT: No Dementia: No Diabetes: Yes GI Disorders: Yes (ESOPHAGEAL VARICES,GASTRITIS) Disorders: No HTN: Yes Hypercholesterolemia: Yes Liver Disease: Yes (LIVER CELL CARCINOMA;CIRRHOSIS OF LIVER) Seizures: No Thyroid Disease: No - Surgical History Abdominal Surgery: No Appendectomy: No Cardiac Surgery: Yes (CARDIAC STENTS) Cholecystectomy: Yes Lung Surgery: No Neurologic Surgery: No Orthopedic Surgery: No - Suicide/Smoking/Psychosocial Hx Smoking Status: No Smoking History: Never smoked Have you smoked in the past 12 months: No Number of Cigarettes Smoked Daily: 0 Information on smoking cessation initiated: No Hx Alcohol Use: No Drug/Substance Use Hx: No Substance Use Type: None Hx Substance Use Treatment: No Review of Systems - Review of Systems Able to Perform ROS?: Yes Comments:: 05/10/17 18:58 GENERAL/CONSTITUTIONAL: No fever or chills. No weakness. HEAD, EYES, EARS, NOSE AND THROAT: No change in vision. No ear pain or discharge. No sore throat. GASTROINTESTINAL: Positive for distension. No nausea, vomiting, diarrhea, constipation, or abdominal pain. GENITOURINARY: No dysuria, frequency, hematuria, or change in urination. CARDIOVASCULAR: No chest pain, palpitations, or lightheadedness. RESPIRATORY: No cough, wheezing, shortness of breath, or hemoptysis. MUSCULOSKELETAL: No joint or muscle swelling or pain. No neck or back pain. SKIN: No rash or lesions. NEUROLOGIC: No headache, numbness, tingling, weakness, loss of consciousness, or change in strength/sensation. ENDOCRINE: No increased thirst. No abnormal weight change. HEMATOLOGIC/LYMPHATIC: No anemia, easy bleeding, or history of blood clots. ALLERGIC/IMMUNOLOGIC: No hives or skin allergy. Is the patient limited Arabic proficient: No *Physical Exam - Vital Signs Last Vital Signs Temp Pulse Resp BP Pulse Ox 98.0 F 60 18 132/75 100 05/10/17 13:27 05/10/17 13:27 05/10/17 13:27 05/10/17 13:27 05/10/17 13:27 - Physical Exam Comments: 05/10/17 19:00 GENERAL: Well developed, well nourished. Awake and alert. No acute distress. HEENT: Normocephalic, atraumatic. Hearing grossly normal. Moist mucous membranes. NECK: Supple. Full ROM. No JVD. CARDIOVASCULAR: Regular rate and rhythm. No murmurs, rubs, or gallops. Distal pulses are 2+ and symmetric. PULMONARY: No evidence of respiratory distress. Mild rhonchi in lower lung owen b/l. ABDOMINAL: Very distended abdomen, firm. Nontender. GENITOURINARY: No CVA tenderness bilaterally. MUSCULOSKELETAL: Normal range of motion at all joints. No bony deformities or tenderness. EXTREMITIES: No cyanosis. No clubbing. No edema. No calf tenderness. SKIN: Warm and dry. Normal capillary refill. No rashes. No jaundice. NEUROLOGICAL: Alert, awake, appropriate. Cranial nerves 2-12 intact. PSYCHIATRIC: Cooperative. Good eye contact. Appropriate mood and affect. ED Treatment Course - LABORATORY CBC & Chemistry Diagram: 05/13/17 16:00 05/14/17 06:00 Medical Decision Making - Medical Decision Making 05/10/17 19:01 The patient is a 57M with a PMH of IDDM, CAD s/p 4 cardiac stents, HTN, chronic liver disease, liver CA (currently on waiting list for liver transplant), multiple bilateral toe amputations, esophageal varices, gastritis, diabetic neuropathy, and colitis who presents to the ED with severe abdominal distension requiring paracentesis. I will admit for observation because IR is not currently in house. Hospitalist paged. Labs drawn. The patient denies any infectious symptoms and states his last tap was 2 months ago. 05/10/17 19:08 The patient was signed out to night resident, Dr. Hernandez. *DC/Admit/Observation/Transfer Diagnosis at time of Disposition: Ascites Qualifiers: Ascites type: other type Qualified Code(s): R18.8 - Other ascites - Discharge Dispostion Disposition: HOME Condition at time of disposition: Stable - Prescriptions - Referrals - Patient Instructions - Post Discharge Activity
[2017-05-10 18:43] LABS: BASO % 0.6 % (0-2.0); EOS % 2.8 % (0-4.5); HEMATOCRIT 28.7 % (35.4-49); HEMOGLOBIN 9.2 GM/dL (11.7-16.9); LYMPH % 13.9 % (8-40); MCH 30.5 pg (25.7-33.7); MCHC 32.2 g/dl (32.0-35.9); MEAN CELL VOLUME 94.9 fl (80-96); MEAN PLT VOLUME 7.5 fl (7.5-11.1); MONO % 9.1 % (3.8-10.2); NEUT % 73.6 % (42.8-82.8); PLATELET COUNT 113 K/MM3 (134-434); RBC 3.02 M/mm3 (4.00-5.60); RDW 23.4 % (11.9-15.9); WHITE BLOOD COUNT 5.5 K/mm3 (4.0-10.0)
[2017-05-10 19:03] LABS: INR 1.12 (0.82-1.09); PROTHROMBIN TIME (PATIENT) 12.6 SEC (9.98-11.88)
[2017-05-10 19:06] LABS: ACTIVATED PTT 31.7 SECONDS (26.9-34.4)
[2017-05-10 19:08] LABS: ALBUMIN 2.3 g/dl (3.4-5.0); ANION GAP 10 (8-16); BILIRUBIN,TOTAL 0.7 mg/dL (0.2-1.0); BLOOD UREA NITROGEN 23 mg/dL (7-18); CALCIUM 8.5 mg/dL (8.5-10.1); CHLORIDE 109 mmol/L (98-107); CO2 22 mmol/L (21-32); CREATININE 1.3 mg/dL (0.7-1.3); GLUCOSE,RANDOM 113 mg/dL (74-106); POTASSIUM 4.3 mmol/L (3.5-5.1); SGOT/AST 34 U/L (15-37); SGPT/ALT < 6 U/L (12-78); SODIUM 141 mmol/L (136-145)
[2017-05-10 19:09] LABS: ALK PHOS 204 U/L (45-117)
--- NOTE | 2017-05-10 19:23 | PDOC ---
History of Present Illness - General Chief Complaint: Pain, Acute Stated Complaint: ascitis FLUID IN STOMACH Time Seen by Provider: 05/10/17 17:02 - History of Present Illness Initial Comments: 05/10/17 19:32 Pt is a 57M with extensive PMH including recurrent liver CA (s/p surgery and pending another temporizing procedure on transplant list) who presented to ED for paracentesis. Pt went to Dr. Gasca's office for his wound care appointment today and was sent to ED with a note from Dr. Gasca requesting admission for paracentesis. Pt states abdominal distension has been long standing and progressive and is becoming cumbersome for him and interfering with sleep. Pt denies CP, SOB (though he states his abdomen interferes with taking deep breaths), fever, chills, nausea, vomiting, diarrhea. Past History - Past Medical History Allergies/Adverse Reactions: Allergies Allergy/AdvReac Type Severity Reaction Status Date / Time Iodinated Contrast- Oral and Allergy Verified 05/10/17 13:27 IV Dye [Iodinated Contrast Media - IV Dye] Home Medications: Ambulatory Orders Furosemide [Lasix] 40 mg PO DAILY 07/15/16 Insulin Detemir [Levemir Flextouch] 40 unit SQ DAILY 07/15/16 Multivitamins [Multivit ([facility] Formul[facility])] 1 tab PO DAILY 07/15/16 Nateglinide [Starlix (Nf) -] 60 mg PO BID 07/15/16 Metformin HCl 500 mg PO BID 08/09/16 Aspirin [ASA -] 81 mg PO DAILY tab.chew 10/30/16 Lactulose (Oral Use) [Cephulac -] 20 gm PO BID #1 bottle 10/30/16 Albuterol 2.5/Ipratropium 0.5 [Duoneb -] 1 amp NEB QIDR #30 amp 12/11/16 Atorvastatin Ca [Lipitor] 10 mg PO HS #30 tab 12/11/16 Insulin (Levemir) [Levemir Vial] 20 units SQ HS ml 12/11/16 Nadolol 20 mg PO DAILY #30 tab 12/11/16 Pantoprazole Sodium [Protonix] 40 mg PO DAILY #30 tab 12/11/16 Ranolazine [Ranexa] 1,000 mg PO BID #60 tab 12/11/16 Benazepril HCl [Lotensin] 20 mg PO DAILY 03/28/17 Ergocalciferol (Vitamin D2) [Vitamin D2] 50,000 unit PO DAILY 03/28/17 Mupirocin Ointment [Bactroban 2% Ointment -] 1 applic TP BID 14 Days #1 tube MDD 2 04/08/17 Rivaroxaban [Xarelto -] 10 mg PO DAILY #30 tablet MDD 1 04/08/17 Spironolactone [Aldactone -] 25 mg PO DAILY #30 tablet MDD 1 04/08/17 Collagenase Clostridium Hist. [Santyl] 1 applic TP DAILY #90 oint...g. 05/02/17 Anemia: Yes Asthma: No Cancer: Yes (LIVER) Cardiac Disorders: Yes CVA: No COPD: No CHF: No DVT: No Dementia: No Diabetes: Yes GI Disorders: Yes (ESOPHAGEAL VARICES,GASTRITIS) Disorders: No HTN: Yes Hypercholesterolemia: Yes Liver Disease: Yes (LIVER CELL CARCINOMA;CIRRHOSIS OF LIVER) Seizures: No Thyroid Disease: No - Surgical History Abdominal Surgery: No Appendectomy: No Cardiac Surgery: Yes (CARDIAC STENTS) Cholecystectomy: Yes Lung Surgery: No Neurologic Surgery: No Orthopedic Surgery: No - Suicide/Smoking/Psychosocial Hx Smoking Status: No Smoking History: Never smoked Have you smoked in the past 12 months: No Number of Cigarettes Smoked Daily: 0 Information on smoking cessation initiated: No Hx Alcohol Use: No Drug/Substance Use Hx: No Substance Use Type: None Hx Substance Use Treatment: No Review of Systems - Review of Systems Able to Perform ROS?: Yes Is the patient limited [place] proficient: No Constitutional: Yes: Symptoms Reported. No: Chills, Fever, Weakness HEENTM: Yes: Symptoms Reported. No: Blurred Vision Respiratory: Yes: Symptoms reported. No: Cough, Orthopnea, Shortness of Breath , Wheezing Cardiac (ROS): Yes: Symptoms Reported, Edema. No: Chest Pain, Palpitations, Chest Tightness ABD/GI: Yes: Symptoms Reported, Abdominal Distended. No: Constipated, Diarrhea , Difficulty Swallowing, Nausea, Poor Fluid Intake, Vomiting, Indigestion : Yes: Symptoms Reported. No: Burning, Dysuria, Discharge Integumentary: Yes: Symptoms Reported. No: Bruising, Pruritus Neurological: Yes: Symptoms reported. No: Headache *Physical Exam - Vital Signs Last Vital Signs Temp Pulse Resp BP Pulse Ox 98.0 F 60 18 132/75 100 05/10/17 13:27 05/10/17 13:27 05/10/17 13:27 05/10/17 13:27 05/10/17 13:27 - Physical Exam General Appearance: Yes: Nourished, Appropriately Dressed, Apparent Distress HEENT: positive: EOMI, MARTHA, Normal ENT Inspection, Pharynx Normal Neck: positive: Supple. negative: Tender Respiratory/Chest: positive: Normal Breath Sounds. negative: Chest Tender, Crackles, Rales, Rhonchi, Stridor, Wheezing Cardiovascular: positive: Regular Rhythm, Regular Rate, S1, S2, Systolic Murmur (3/6 systolic murmur with preserved S1S2 heard best at LUSB) Vascular Pulses: Dorsalis-Pedis (R): 0 (cap refill <2sec), Doralis-Pedis (L): 0 (cap refill <2sec) Gastrointestinal/Abdominal: positive: Normal Bowel Sounds, Distended. negative : Tender, Flat, Pulsatile Mass, Guarding, Rebound, Tenderness Extremity: positive: Normal Capillary Refill (poor distal pulses. Normal cap refill), Pedal Edema (2+ b/l). negative: Normal Inspection (multiple toe amputations including recent L 4th toe with dressing from recent amputation) ED Treatment Course - LABORATORY CBC & Chemistry Diagram: 05/10/17 18:35 05/10/17 18:35 - ADDITIONAL ORDERS Additional order review: Laboratory Results 05/10/17 18:35 Sodium 141 Potassium 4.3 Chloride 109 H Carbon Dioxide 22 Anion Gap 10 BUN 23 H Creatinine 1.3 Creat Clearance w eGFR 56.50 Random Glucose 113 H Calcium 8.5 Total Bilirubin 0.7 D AST 34 ALT < 6 L Alkaline Phosphatase 204 H Total Protein 8.0 D Albumin 2.3 L D Medical Decision Making - Medical Decision Making 05/10/17 19:22 Pt signed out by day team. Pt is a 57M w/ PMH of IDDM, CAD s/p 4 cardiac stents, HTN, chronic liver disease , liver CA (currently on waiting list for liver transplant), multiple bilateral toe amputations, esophageal varices, gastritis, diabetic neuropathy, and colitis who was sent to ED by Dr. Gasca (follows pt for an ulcer) with instructions to admit for paracentesis. Pt currently stable, afebrile, in NAD. Currently pending call back from hospitalist. 05/10/17 21:21 Still pending call from hospitalist. Renee answering service called. Pt to be admitted to hospitalist. Re-sending microblog to hospitalist. 05/10/17 21:56 Spoke with Hospitalist who requested heparin protocol (pt on Xarelto outpt for portal thrombosis) and repeat type & screen. Hospitalist accepts pt for inpt obs. 05/10/17 22:12 Pt admitted *DC/Admit/Observation/Transfer Diagnosis at time of Disposition: Ascites Qualifiers: Ascites type: other type Qualified Code(s): R18.8 - Other ascites - Discharge Dispostion Admit: Yes - Referrals Referrals: Roxanne Duran MD [Primary Care Provider] - - Patient Instructions - Post Discharge Activity
[2017-05-10 19:24] LABS: ADD RBC MORPHOLOGY YES
[2017-05-10 19:59] LABS: ANISOCYTOSIS 2+; MACROCYTOSIS 1+; OVALOCYTE 1+
[2017-05-10 20:00] LABS: PLATELET ESTIMATE DECREASED
[2017-05-10] MEDS ORDERED: HEPARIN NA (PORCINE) 5,000 UNITS/ML 1ML VIAL IVPUSH PRN ×2 (21:55)
[2017-05-10] MEDS ORDERED: HEPARIN - 25,000 UNIT in SODIUM CHLORIDE 495 ML IV SCH (22:00)
--- NOTE | 2017-05-10 22:00 | HP ---
Admitting History and Physical - Primary Care Physician PCP: Jg Flores - Admission Chief Complaint: Abdominal Distention History of Present Illness: This is a 57 y/o man with a significant medical history of HTN, HLD, Portal Vein Thrombosis, Ascites, GI Bleed, Esophageal Varices, Peripheral Neuropathy, Hemorrhoids. Who presents to the ED sent in by Dr. Gasca for admission secondary to abdominal distention, increased SOB. Patient reports the abdominal distention started 2 weeks ago. Patient states" I find it difficult to breath, sleep. Patient reports wheezing and continued swelling to his lower extremities. Patient reports having a Paracentesis done several months ago having 9L removed. Patient denies fever, chills, dizziness, CP, AP, N/V/D, constipation, dysuria. 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: Peripheral Neuropathy Cardiovascular: Yes: CAD, HTN, Hyperlipdemia Gastrointestinal: Yes: Ascites, Esophageal Varices, Gastritis, GI Bleed, Hemorrhoids, Other Hepatobiliary: Yes: Cirrhosis (h/o esophageal varices s/p banding, related to HERNANDEZ), Cholelithiasis (s/p lap choly), Other (PORTAL VEIN PARTIAL THROMBOSIS, HCC treated with transhepatic heat ablations at [facility]) Renal/: Yes: Renal Inusuff Heme/Onc: Yes: Anemia, Thrombocytopenia Endocrine: Yes: Diabetes Mellitus - Past Surgical History Past Surgical History: Yes: Amputation (left toe #4, right toes #2,3), Cholecystectomy, Colonoscopy, Hernia Repair, Upper Endoscopy - Smoking History Smoking history: Never smoked Have you smoked in the past 12 months: No Aproximately how many cigarettes per day: 0 - Alcohol/Substance Use Hx Alcohol Use: No History of Substance Use: reports: None - Social History ADL: Independent 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 [employer] History of Recent Travel: No Home Medications - Allergies Allergies/Adverse Reactions: Allergies Allergy/AdvReac Type Severity Reaction Status Date / Time Iodinated Contrast- Oral and Allergy Verified 05/10/17 13:27 IV Dye [Iodinated Contrast Media - IV Dye] - Home Medications Home Medications: Ambulatory Orders Furosemide [Lasix] 40 mg PO DAILY 07/15/16 Insulin Detemir [Levemir Flextouch] 40 unit SQ DAILY 07/15/16 Multivitamins [Multivit ([facility] Formulary)] 1 tab PO DAILY 07/15/16 Nateglinide [Starlix (Nf) -] 60 mg PO BID 07/15/16 Metformin HCl 500 mg PO BID 08/09/16 Aspirin [ASA -] 81 mg PO DAILY tab.chew 10/30/16 Albuterol 2.5/Ipratropium 0.5 [Duoneb -] 1 amp NEB QIDR #30 amp 12/11/16 Atorvastatin Ca [Lipitor] 10 mg PO HS #30 tab 12/11/16 Nadolol 20 mg PO DAILY #30 tab 12/11/16 Pantoprazole Sodium [Protonix] 40 mg PO DAILY #30 tab 12/11/16 Benazepril HCl [Lotensin] 20 mg PO DAILY 03/28/17 Ergocalciferol (Vitamin D2) [Vitamin D2] 50,000 unit PO DAILY 03/28/17 Collagenase Clostridium Hist. [Santyl] 1 applic TP DAILY #90 oint...g. 05/02/17 Insulin (Levemir) [Levemir Vial] 40 units SQ HS 05/11/17 Home Medications (free text): patient reports taking: Lipitor 40mg po HS. Lasix 40mg po daily. Levemir 20units SQ HS. Levemir flextouch 40 units SQ daily. Lactulose 20gm po BID. MVI 1 tab po daily. Nadolol 20mg po Q48hrs. Starlix 60mg po daily. Protonix 40mg po daily. Aldactone 25mg po daily. Asa 81mg po Q48hrs. Albuterol/Ipatropium 1 amp via nebulizer QD prn Family Disease History - Family Disease History Family Disease History: Diabetes: Brother (alcoholic cirrhosis), Sister, CA: Mother (breast Ca), Other: Father ( from alcohol related complications) Review of Systems - Review of Systems Constitutional: reports: No Symptoms Eyes: reports: No Symptoms HENT: reports: No Symptoms Neck: reports: No Symptoms Cardiovascular: reports: Edema (lower extremities), Shortness of Breath Respiratory: reports: Orthopnea, SOB, SOB on Exertion, Wheezing Gastrointestinal: reports: Other (Abdominal Distention) Genitourinary: reports: No Symptoms Breasts: reports: No Symptoms Reported Musculoskeletal: reports: No Symptoms Integumentary: reports: Wound (s/p amputation left #4, right #2,#3) Neurological: reports: No Symptoms Endocrine: reports: No Symptoms Hematology/Lymphatic: reports: No Symptoms Psychiatric: reports: No Symptoms Physical Examination Vital Signs: Vital Signs Temperature 98.0 F 05/10/17 13:27 Pulse Rate 60 05/10/17 13:27 Respiratory Rate 18 05/10/17 13:27 Blood Pressure 132/75 05/10/17 13:27 O2 Sat by Pulse Oximetry (%) 100 05/10/17 13:27 Constitutional: Yes: Well Nourished, No Distress, Calm, Obese Eyes: Yes: Conjunctiva Clear, PERRL, Sclera Icterus HENT: Yes: WNL, Atraumatic, Normocephalic Neck: Yes: WNL, Supple, Trachea Midline Cardiovascular: Yes: Tachycardia, S1, S2 Respiratory: Yes: WNL, Regular, Diminished Gastrointestinal: Yes: Abdomen, Obese, Ascites, Distention, Hepatomegaly, Hypoactive Bowel Sounds, Splenomegaly, Other (Striae) Renal/: Yes: WNL Breast(s): Yes: WNL Musculoskeletal: Yes: WNL Extremities: Yes: WNL Edema: Yes Edema: LLE: 2+, RLE: 2+ Peripheral Pulses WNL: Yes Integumentary: Yes: Venous Stasis Changes (lower extremities) Neurological: Yes: WNL, Alert, Oriented ...Motor Strength: WNL Psychiatric: Yes: WNL, Alert, Oriented Labs: CBC, BMP 05/10/17 18:35 05/10/17 18:35 Imaging - Results Chest X-ray: Pending EKG: Image Reviewed (SB 57 bpm QT/QTC 454/441) Problem List - Problems (1) Ascites Code(s): R18.8 - OTHER ASCITES Qualifiers: Ascites type: other type Qualified Code(s): R18.8 - Other ascites (2) Abdominal distension Code(s): R14.0 - ABDOMINAL DISTENSION (GASEOUS) (3) Shortness of breath Code(s): R06.02 - SHORTNESS OF BREATH (4) Cough Code(s): R05 - COUGH (5) Nonalcoholic steatohepatitis (HERNANDEZ) Code(s): K75.81 - NONALCOHOLIC STEATOHEPATITIS (HERNANDEZ) (6) CAD (coronary artery disease) Code(s): I25.10 - ATHSCL HEART DISEASE OF [place] CORONARY ARTERY W/O ANG PCTRS (7) DM Diabetes mellitus Code(s): E11.9 - TYPE 2 DIABETES MELLITUS WITHOUT COMPLICATIONS (8) Hyperlipidemia Code(s): E78.5 - HYPERLIPIDEMIA, UNSPECIFIED (9) Hypertension Code(s): I10 - ESSENTIAL (PRIMARY) HYPERTENSION (10) Peripheral vascular disease Code(s): I73.9 - PERIPHERAL VASCULAR DISEASE, UNSPECIFIED (11) DVT prophylaxis Code(s): ANH5449 - Assessment/Plan This is a 57 y/o man with a PMHx of: Peripheral Neuropathy, HTN, CAD, HLD, Liver Ca, Ascites, Esophageal varices, GI Bleed, Gastritis, Hemorrhoids. Admitted to M/S for Ascites, SOB Plan: 1. Ascites- Patient reports increased SOB, VERAS and Orthopnea, On exam: Abdomen grossly distended, +hepatomegaly, Splenomegaly. Appreciate IR consult for Paracentesis, elevate HOB, O2, Continue Lasix, Spironolactone, Strict INOs, Monitor CBC, BMP, Monitor vitals 2. SOB- Secondary to Ascites- See above 3. CAD//HTN//HLD- EKG-reviewed, monitor BP, continue home meds with parameters. 4. Esophageal Varices//GI Bleed//Gastritis- not active, controlled. Continue Zantac. Continue to monitor and treat with interventions accordingly 5. Portal Vein Thrombosis- Patient reports he is no longer taking Xarelto or any other AC per his Consulting Hr Professional Dr Butcher ([facility]), Heparin was started in the ED , it was d/cd. Would advise Day team to follow up 6. Diabetes Mellitus- Monitor BGMs, Will hold home meds for now, keeping pt. NPO until evaluated by IR. Consider ISS during hospital stay. Day team to review today. 7. FEN - Fluid Restriction 500ml - Replete lytes prn - NPO 8. DVT Prophylaxis - OOB - SCDs - Consider ACs if LOS > 48 hrs Code Status: Full Code Dispo: Observation Visit type - Emergency Visit Emergency Visit: Yes ED Registration Date: 05/10/17 Care time: The patient presented to the Emergency Department on the above date and was hospitalized for further evaluation of their emergent condition. - New Patient This patient is new to me today: Yes Date on this admission: 05/10/17 - Critical Care Critical Care patient: No
[2017-05-10] MEDS ORDERED: HEPARIN INFUSION - 25,000 UNITS/500 ML INFUS.BAG IVPB ONE (22:46)
[2017-05-11 04:37] VITALS: BMI 38.0
[2017-05-11 08:16] LABS: ANION GAP 8 (8-16); BLOOD UREA NITROGEN 24 mg/dL (7-18); CALCIUM 8.7 mg/dL (8.5-10.1); CHLORIDE 111 mmol/L (98-107); CO2 23 mmol/L (21-32); CREATININE 1.2 mg/dL (0.7-1.3); GLUCOSE,RANDOM 136 mg/dL (74-106); POTASSIUM 4.7 mmol/L (3.5-5.1); SODIUM 142 mmol/L (136-145)
[2017-05-11] MEDS: MULTIVITAMINS (DAILY MVI) TABLET (FP) PO SCH (09:41)
[2017-05-11] MEDS: PANTOPRAZOLE 40 MG TABLET (FP) PO SCH (09:41)
[2017-05-11] MEDS: SPIRONOLACTONE 25 MG TABLET (FP) PO SCH (09:41)
[2017-05-11] MEDS: FUROSEMIDE 40 MG TABLET (FP) PO SCH (09:41)
[2017-05-11 10:53] LABS: BASO % 0.8 % (0-2.0); EOS % 2.6 % (0-4.5); HEMATOCRIT 24.5 % (35.4-49); HEMOGLOBIN 7.9 GM/dL (11.7-16.9); LYMPH % 18.5 % (8-40); MCH 30.4 pg (25.7-33.7); MCHC 32.2 g/dl (32.0-35.9); MEAN CELL VOLUME 94.5 fl (80-96); MONO % 10.6 % (3.8-10.2); NEUT % 67.5 % (42.8-82.8); PLATELET COUNT 84 K/MM3 (134-434); RDW 23.3 % (11.9-15.9); WHITE BLOOD COUNT 3.7 K/mm3 (4.0-10.0)
--- NOTE | 2017-05-11 11:41 | PN ---
Progress Note, Physician Chief Complaint: Ascitis History of Present Illness: NAD, in bed, going for paracentesis - Current Medication List Current Medications: Active Medications Atorvastatin Calcium (Lipitor -) 10 mg PO HS J CARLOS Furosemide (Lasix -) 40 mg PO DAILY [facility] Last Admin: 05/11/17 09:41 Dose: 40 mg Multivitamins/Minerals/Vitamin C (Tab-A-Vit -) 1 tab PO DAILY [facility] Last Admin: 05/11/17 09:41 Dose: 1 tab Pantoprazole Sodium (Protonix -) 40 mg PO DAILY [facility] Last Admin: 05/11/17 09:41 Dose: 40 mg Spironolactone (Aldactone -) 25 mg PO DAILY [facility] Last Admin: 05/11/17 09:41 Dose: 25 mg - Objective Vital Signs: Vital Signs Temperature 98.2 F 05/11/17 06:00 Pulse Rate 58 L 05/11/17 06:00 Respiratory Rate 20 05/11/17 06:25 Blood Pressure 127/68 05/11/17 04:33 O2 Sat by Pulse Oximetry (%) 100 05/11/17 06:25 Constitutional: Yes: Well Nourished, No Distress, Calm Cardiovascular: Yes: Regular Rate and Rhythm Respiratory: Yes: Regular Gastrointestinal: Yes: Ascites Musculoskeletal: Yes: WNL Extremities: Yes: WNL Edema: No Peripheral Pulses WNL: Yes Wound/Incision: Yes: Dressing Dry and Intact (Left foot) Neurological: Yes: Alert, Oriented Psychiatric: Yes: Alert, Oriented Labs: CBC, BMP 05/11/17 06:00 05/11/17 06:00 INR, PTT INR 1.12 (0.82-1.09) D 05/10/17 18:35 Problem List - Problems (1) Ascites Assessment/Plan: Paracentesis today Code(s): R18.8 - OTHER ASCITES Qualifiers: Ascites type: other type Qualified Code(s): R18.8 - Other ascites (2) Esophageal varices Assessment/Plan: -seen by GI -EGD in AM Code(s): I85.00 - ESOPHAGEAL VARICES WITHOUT BLEEDING (3) HCC (hepatocellular carcinoma) Code(s): C22.0 - LIVER CELL CARCINOMA (4) Liver cirrhosis Code(s): K74.60 - UNSPECIFIED CIRRHOSIS OF LIVER (5) Diabetes 1.5, managed as type 2 Assessment/Plan: -insulin sliding scale -diabetic diet -hypoglycemia protocol Code(s): E13.9 - OTHER SPECIFIED DIABETES MELLITUS WITHOUT COMPLICATIONS (6) Anemia Assessment/Plan: -hematology consult -stool OB -Check Iron, B12, folate, TSH, Ft4 -repeat labs in AM Code(s): D64.9 - ANEMIA, UNSPECIFIED Assessment/Plan see problem list
[2017-05-11] MEDS ORDERED: DEXTROSE 50%-WATER - 25 GM/50 ML VIAL IVPUSH PRN (11:43)
--- NOTE | 2017-05-11 12:16 | CON.GI ---
Consult Consult Specialty:: GI - History of Present Illness History of Present Illness: This is a 57 y/o man with a significant medical history of HTN, HLD, Liver neoplasm s/p sx, on transplant list, Portal Vein Thrombosis, Ascites, GI Bleed, Esophageal Varices, Peripheral Neuropathy, Hemorrhoids. Who presents to the ED sent in by Dr. Gasca for admission secondary to abdominal distention, increased SOB. Patient reports the abdominal distention started 2 weeks ago. Patient states "I find it difficult to breath, sleep". Patient reports wheezing and swelling to his lower extremities. Patient reports having a Paracentesis done several months ago having 9L removed. Patient denies fever, chills, dizziness, CP, AP, N/V/D, constipation, dysuria. EGD few years ago. No melena hematochezia , hematemesis, jaundice. - History Source History Provided By: Patient, Medical Record Limitations to Obtaining History: No Limitations - Past Medical History EXTRUSION FORMER: Yes: Peripheral Neuropathy Cardio/Vascular: Yes: CAD, HTN, Hyperlipdemia Gastrointestinal: Yes: Ascites, Esophageal Varices, Gastritis, GI Bleed, Hemorrhoids, Other Hepatobiliary: Yes: Cirrhosis (h/o esophageal varices s/p banding, related to HERNANDEZ), Cholelithiasis (s/p lap choly), Other (PORTAL VEIN PARTIAL THROMBOSIS, HCC treated with transhepatic heat ablations at [facility]) Renal/: Yes: Renal Inusuff Endocrine: Yes: Diabetes Mellitus - Past Surgical History Past Surgical History: Yes: Amputation (left toe #4, right toes #2,3), Cholecystectomy, Colonoscopy, Hernia Repair, Upper Endoscopy - Alcohol/Substance Use Hx Alcohol Use: No History of Substance Use: reports: None - Smoking History Smoking history: Never smoked Have you smoked in the past 12 months: No Aproximately how many cigarettes per day: 0 - Social History Usual Living Arrangement: With Spouse ADL: Independent 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 [employer] History of Recent Travel: No Home Medications - Allergies Allergies/Adverse Reactions: Allergies Allergy/AdvReac Type Severity Reaction Status Date / Time Iodinated Contrast- Oral and Allergy Verified 05/10/17 13:27 IV Dye [Iodinated Contrast Media - IV Dye] - Home Medications Home Medications: Ambulatory Orders Furosemide [Lasix] 40 mg PO DAILY 07/15/16 Insulin Detemir [Levemir Flextouch] 40 unit SQ DAILY 07/15/16 Multivitamins [Multivit ([facility] Formulary)] 1 tab PO DAILY 07/15/16 Nateglinide [Starlix (Nf) -] 60 mg PO BID 07/15/16 Metformin HCl 500 mg PO BID 08/09/16 Aspirin [ASA -] 81 mg PO DAILY tab.chew 10/30/16 Albuterol 2.5/Ipratropium 0.5 [Duoneb -] 1 amp NEB QIDR #30 amp 12/11/16 Atorvastatin Ca [Lipitor] 10 mg PO HS #30 tab 12/11/16 Nadolol 20 mg PO DAILY #30 tab 12/11/16 Pantoprazole Sodium [Protonix] 40 mg PO DAILY #30 tab 12/11/16 Benazepril HCl [Lotensin] 20 mg PO DAILY 03/28/17 Ergocalciferol (Vitamin D2) [Vitamin D2] 50,000 unit PO DAILY 03/28/17 Collagenase Clostridium Hist. [Santyl] 1 applic TP DAILY #90 oint...g. 05/02/17 Insulin (Levemir) [Levemir Vial] 40 units SQ HS 05/11/17 Family Disease History - Family Disease History Family Disease History: Diabetes: Brother (alcoholic cirrhosis), Sister, CA: Mother (breast Ca), Other: Father ( from alcohol related complications) Review of Systems Findings/Remarks: please refer to H&P Physical Exam-GI Vital Signs: Vital Signs Temperature 98.3 F 05/11/17 09:00 Pulse Rate 53 L 05/11/17 09:00 Respiratory Rate 20 05/11/17 09:00 Blood Pressure 124/66 05/11/17 09:00 O2 Sat by Pulse Oximetry (%) 99 05/11/17 09:00 Constitutional: Yes: Well Nourished, No Distress, Calm Eyes: Yes: Conjunctiva Clear Neck: Yes: Supple Cardiovascular: Yes: Regular Rate and Rhythm Respiratory: Yes: Regular Gastrointestinal Inspection: Yes: Ascites, Distention, Other (tense ascites) ...Palpate: Yes: Firm/Rigid, Other (firm, tens ascites). No: Guarding, Tenderness, Tenderness, Epigastium, Tenderness, Rebound Edema: LLE: 2+, RLE: 2+ Integumentary: No: Jaundice Neurological: Yes: Alert, Oriented. No: Asterixis, Confusion, Tremors Psychiatric: Yes: Alert Labs: CBC, BMP 05/11/17 06:00 05/11/17 06:00 INR, PTT INR 1.12 (0.82-1.09) D 05/10/17 18:35 Laboratory Tests 05/10/17 05/10/17 05/10/17 18:35 18:35 18:35 WBC 5.5 D RBC 3.02 L Hgb 9.2 L D Hct 28.7 L MCV 94.9 D MCH 30.5 D MCHC 32.2 RDW 23.4 H D Plt Count 113 L MPV 7.5 Neutrophils % 73.6 Lymphocytes % 13.9 D Monocytes % 9.1 Eosinophils % 2.8 D Basophils % 0.6 Platelet Estimate Decreased Platelet Comment No clumping noted Anisocytosis 2+ Microcytosis 1+ Macrocytosis 1+ Ovalocytes 1+ PT with INR 12.60 H INR 1.12 D PTT (Actin FS) 31.7 Sodium 141 Potassium 4.3 Chloride 109 H Carbon Dioxide 22 Anion Gap 10 BUN 23 H Creatinine 1.3 Creat Clearance w eGFR 56.50 POC Glucometer Random Glucose 113 H Calcium 8.5 Total Bilirubin 0.7 D AST 34 ALT < 6 L Alkaline Phosphatase 204 H Total Protein 8.0 D Albumin 2.3 L D Blood Type Antibody Screen 05/10/17 05/11/17 05/11/17 18:35 01:12 06:00 WBC 3.7 L D RBC 2.60 L Hgb 7.9 L D Hct 24.5 L MCV 94.5 MCH 30.4 MCHC 32.2 RDW 23.3 H Plt Count 84 L D MPV 8.0 Neutrophils % 67.5 Lymphocytes % 18.5 D Monocytes % 10.6 H Eosinophils % 2.6 Basophils % 0.8 Platelet Estimate Platelet Comment Anisocytosis Microcytosis Macrocytosis Ovalocytes PT with INR INR PTT (Actin FS) Sodium Potassium Chloride Carbon Dioxide Anion Gap BUN Creatinine Creat Clearance w eGFR POC Glucometer Random Glucose Calcium Total Bilirubin AST ALT Alkaline Phosphatase Total Protein Albumin Blood Type A POSITIVE A POSITIVE Antibody Screen Negative 05/11/17 05/11/17 05/11/17 06:00 06:00 06:51 WBC RBC Hgb Hct MCV MCH MCHC RDW Plt Count MPV Neutrophils % Lymphocytes % Monocytes % Eosinophils % Basophils % Platelet Estimate Platelet Comment Anisocytosis Microcytosis Macrocytosis Ovalocytes PT with INR INR PTT (Actin FS) 32.3 Sodium 142 Potassium 4.7 Chloride 111 H Carbon Dioxide 23 Anion Gap 8 BUN 24 H Creatinine 1.2 Creat Clearance w eGFR POC Glucometer 152 Random Glucose 136 H D Calcium 8.7 Total Bilirubin AST ALT Alkaline Phosphatase Total Protein Albumin Blood Type Antibody Screen Imaging - Results Ultrasound: Pending Problem List - Problems (1) Esophageal varices Code(s): I85.00 - ESOPHAGEAL VARICES WITHOUT BLEEDING (2) HCC (hepatocellular carcinoma) Code(s): C22.0 - LIVER CELL CARCINOMA (3) Liver cirrhosis Code(s): K74.60 - UNSPECIFIED CIRRHOSIS OF LIVER (4) Ascites Code(s): R18.8 - OTHER ASCITES Qualifiers: Ascites type: other type Qualified Code(s): R18.8 - Other ascites (5) Abdominal distension Code(s): R14.0 - ABDOMINAL DISTENSION (GASEOUS) (6) Ascites due to alcoholic cirrhosis Code(s): K70.31 - ALCOHOLIC CIRRHOSIS OF LIVER WITH ASCITES Assessment/Plan Therpautic/diagnostic paracentesis (cirrhosis, neoplasm) If more than 5L removed, administer albumin, monitor BUN, Cr May need to add aldactone to lasix and titrate up to maximum dose tolerated after paracentesis Low salt diet EGD for esophageal varices surveillance, PHG discussed with the patient
[2017-05-11] MEDS: ALBUTEROL SO4 2.5/IPRATROPIUM 0.5 INH SOL 3 ML VIAL.NEB. NEB SCH ×2 (13:10→18:04)
--- NOTE | 2017-05-11 13:21 | EKG ---
Test Reason : Blood Pressure : / mmHG Vent. Rate : 057 BPM Atrial Rate : 057 BPM P-R Int : 184 ms QRS Dur : 106 ms QT Int : 454 ms P-R-T Axes : 032 -36 002 degrees QTc Int : 441 ms SINUS BRADYCARDIA LEFT AXIS DEVIATION MODERATE VOLTAGE CRITERIA FOR LVH, MAY BE NORMAL VARIANT ABNORMAL ECG WHEN COMPARED WITH ECG OF 28-MAR-2017 17:07, CRITERIA FOR SEPTAL INFARCT ARE NO LONGER PRESENT Confirmed by KRISTINA VELIZ MD ([id number]) on 05/11/2017 1:21:27 PM Referred By: Confirmed By:KRISTINA VELIZ MD
[2017-05-11] MEDS ORDERED: ALBUMIN HUMAN 25% 12.5 GM/50 ML VIAL IVPB SCH ×2 (15:15)
[2017-05-11] MEDS: metFORMIN HCL 500 MG TABLET (FP) PO SCH (16:21)
[2017-05-11] MEDS: INSULIN SLIDING SCALE (NOVOLOG) 1 VIAL SQ SCH (16:22)
[2017-05-11 16:28] LABS: AMYLASE-BF 16.77; GLUCOSE,BODY FLUID 171 mg/dl; TOTAL PROTEIN BODY FLUID 1.1 g/dl
[2017-05-11] MEDS: ALBUMIN HUMAN 25% 12.5 GM/50 ML VIAL IVPB SCH ×4 (16:37→19:59)
[2017-05-11 18:56] LABS: WBC & OTHER NUCLEATED CELLS 74 /mm3
--- NOTE | 2017-05-11 20:56 | PN ---
Progress Note (short form) - Note Progress Note: Hematology Note: Known from previous admissions. Patient seen and examined. O/E: Constitutional: Yes: Well Nourished, No Distress, Calm Eyes: Yes: WNL, Conjunctiva Clear HENT: Yes: Normocephalic Neck: Yes: Supple, Trachea Midline Cardiovascular: Yes: WNL, Regular Rate and Rhythm, Bradycardia, S1, S2 Respiratory: Yes: Regular, CTA Bilaterally Gastrointestinal:+ obsesity, at his baseline per him. Neurological: Yes: Alert, Oriented Last Vital Signs Temp Pulse Resp BP Pulse Ox 98 F 60 20 114/52 99 05/11/17 20:17 05/11/17 20:17 05/11/17 20:17 05/11/17 20:17 05/11/17 09:00 CBC, BMP 05/11/17 06:00 Current Medications Generic Name Dose Route Start Last Admin Trade Name Freq PRN Reason Stop Dose Admin Albuterol/Ipratropium 1 amp 05/11/17 12:00 05/11/17 18:04 Duoneb - NEB Not Given QIDR J CARLOS Aspirin 81 mg 05/12/17 10:00 Asa - PO DAILY [facility] Atorvastatin Calcium 10 mg 05/11/17 22:00 Lipitor - PO HS J CARLOS Collagenase 1 applic 05/12/17 10:00 Santyl - TP DAILY [facility] Dextrose 25 gm 05/11/17 11:43 D50w (Vial) - IVPUSH PRN PRN Hypoglycemia. Ergocalciferol 50,000 unit 05/12/17 10:00 Drisdol - PO DAILY J CARLOS Furosemide 40 mg 05/11/17 10:00 05/11/17 09:41 Lasix - PO 40 mg DAILY J CARLOS Administration Insulin Aspart 1 vial 05/11/17 16:30 05/11/17 16:22 Novolog Vial Sliding Scale - SQ 4 units TIDAC J CARLOS Administration Protocol Insulin Detemir 40 units 05/11/17 22:00 Levemir Vial SQ HS J CARLOS Lisinopril 20 mg 05/12/17 10:00 Prinivil PO DAILY J CARLOS Metformin HCl 500 mg 05/11/17 16:30 05/11/17 16:21 Glucophage - PO 500 mg BIDAC J CARLOS Administration Multivitamins/Minerals/Vitamin C 1 tab 05/11/17 10:00 05/11/17 09:41 Tab-A-Vit - PO 1 tab DAILY J CARLOS Administration Nadolol 20 mg 05/12/17 10:00 Corgard - PO DAILY J CARLOS Pantoprazole Sodium 40 mg 05/11/17 10:00 05/11/17 09:41 Protonix - PO 40 mg DAILY J CARLOS Administration Spironolactone 25 mg 05/11/17 10:00 05/11/17 09:41 Aldactone - PO 25 mg DAILY J CARLOS Administration Patient with advanced liver disease/HCC/Decompensated cirrhosis/PVT/ Splenomegaly on xarelto for PVT who follows at [facility] is admitted recently for cellulitis/osteomyelitis Anemia/Thrombocytopenia/coagulopathy, from the above. s/p paracentesis today Thrmobocytopenia: resolved Anemia : assess for transfusion Xarelto : as per chart, pt says it was d/c'd for HCC, Need to follow-up with his [facility] [employer] and as per pt, seems like he is scheduled for [facility] GI c/s noted
[2017-05-11] MEDS: ATORVASTATIN CA 10 MG TABLET (FP) PO SCH (21:12)
[2017-05-11] MEDS: INSULIN DETEMIR 100 UNITS/ML MDV SQ SCH (21:13)
[2017-05-11 21:21] LABS: ALBUMIN 2.9 g/dl (3.4-5.0); ALK PHOS 150 U/L (45-117); ANION GAP 7 (8-16); BILIRUBIN,TOTAL 0.7 mg/dL (0.2-1.0); BLOOD UREA NITROGEN 22 mg/dL (7-18); CHLORIDE 108 mmol/L (98-107); CO2 23 mmol/L (21-32); CREATININE 1.2 mg/dL (0.7-1.3); GLUCOSE,RANDOM 179 mg/dL (74-106); SGOT/AST 21 U/L (15-37); SGPT/ALT 6 U/L (12-78); SODIUM 138 mmol/L (136-145); TOT PROT 6.9 g/dl (6.4-8.2)
[2017-05-11] MEDS ORDERED: ACETAMINOPHEN 325 MG TABLET (FP) PO ONE (21:41)
--- NOTE | 2017-05-11 21:47 | HOSP ---
Subjective - Review of Symptoms Events since last encounter: hospitalist encounter Notified by the primary nurse that the patient is having phantom pain from amputation done several months ago. A/P Oxycodone x 1 dose now Physical Examination Vital Signs: Vital Signs Temperature 98 F 05/11/17 20:17 Pulse Rate 60 05/11/17 20:17 Respiratory Rate 20 05/11/17 20:17 Blood Pressure 114/52 05/11/17 20:17 O2 Sat by Pulse Oximetry (%) 99 05/11/17 09:00 Labs: CBC, BMP 05/11/17 06:00 05/11/17 20:35
[2017-05-11] MEDS ORDERED: oxyCODONE HCL 5 MG TABLET PO ONE (22:00)
[2017-05-11 22:20] LABS: PLEURAL FLUID MACROPHAGES 10 %; PLEURAL FLUID MESOTHELIAL 60 %
[2017-05-12] MEDS: metFORMIN HCL 500 MG TABLET (FP) PO SCH ×2 (06:06→17:41)
[2017-05-12] MEDS: INSULIN SLIDING SCALE (NOVOLOG) 1 VIAL SQ SCH ×3 (06:06→17:49)
[2017-05-12] MEDS: ALBUTEROL SO4 2.5/IPRATROPIUM 0.5 INH SOL 3 ML VIAL.NEB. NEB SCH ×5 (06:30→23:38)
[2017-05-12 08:08] LABS: BASO % 0.5 % (0-2.0); EOS % 2.2 % (0-4.5); HEMATOCRIT 21.9 % (35.4-49); HEMOGLOBIN 7.2 GM/dL (11.7-16.9); LYMPH % 21.6 % (8-40); MCH 30.7 pg (25.7-33.7); MCHC 32.9 g/dl (32.0-35.9); MEAN CELL VOLUME 93.4 fl (80-96); MEAN PLT VOLUME 7.7 fl (7.5-11.1); NEUT % 65.7 % (42.8-82.8); PLATELET COUNT 72 K/MM3 (134-434); RBC 2.35 M/mm3 (4.00-5.60); RDW 22.5 % (11.9-15.9); WHITE BLOOD COUNT 3.5 K/mm3 (4.0-10.0)
[2017-05-12 08:12] LABS: ALBUMIN 2.6 g/dl (3.4-5.0); ANION GAP 9 (8-16); BLOOD UREA NITROGEN 23 mg/dL (7-18); CALCIUM 8.2 mg/dL (8.5-10.1); CHLORIDE 109 mmol/L (98-107); CO2 23 mmol/L (21-32); GLUCOSE,RANDOM 134 mg/dL (74-106); SODIUM 141 mmol/L (136-145)
[2017-05-12 08:13] LABS: ADD RBC MORPHOLOGY YES
[2017-05-12 08:23] LABS: ALK PHOS 139 U/L (45-117); BILIRUBIN,TOTAL 0.9 mg/dL (0.2-1.0); CREATININE 1.1 mg/dL (0.7-1.3); SGOT/AST 20 U/L (15-37); SGPT/ALT 6 U/L (12-78); TOT PROT 6.2 g/dl (6.4-8.2)
[2017-05-12] MEDS ORDERED: PT OWN MED DRAWER 7, Y5N ONE (09:36)
[2017-05-12] MEDS: FUROSEMIDE 40 MG TABLET (FP) PO SCH (09:54)
[2017-05-12] MEDS: LISINOPRIL 20 MG TABLET (FP) PO SCH (09:54)
[2017-05-12] MEDS ORDERED: NADOLOL 20 MG TABLET (FP) PO SCH (10:00)
[2017-05-12] MEDS ORDERED: ERGOCALCIFEROL (VITAMIN D2) 50,000 UNIT CAPSULE (FP) PO SCH (10:00)
--- NOTE | 2017-05-12 10:07 | PN ---
Progress Note, Physician Chief Complaint: Ascitis History of Present Illness: NAD, in bed, had paracentesis yesterday received albumin H/H lower today seen by Hematology stool OB pending Iron studies pending B12, TSH, FT4 normal wants to go home - Current Medication List Current Medications: Active Medications Albuterol/Ipratropium (Duoneb -) 1 amp NEB QIDR [facility] Last Admin: 05/12/17 06:30 Dose: Not Given Aspirin (Asa -) 81 mg PO DAILY J CARLOS Atorvastatin Calcium (Lipitor -) 10 mg PO HS [facility] Last Admin: 05/11/17 21:12 Dose: 10 mg Collagenase (Santyl -) 1 applic TP DAILY [facility] Dextrose (D50w (Vial) -) 25 gm IVPUSH PRN PRN PRN Reason: Hypoglycemia. Ergocalciferol (Drisdol -) 50,000 unit PO DAILY [facility] Furosemide (Lasix -) 40 mg PO DAILY [facility] Last Admin: 05/12/17 09:54 Dose: 40 mg Insulin Aspart (Novolog Vial Sliding Scale -) 1 vial SQ TIDAC [facility] PRN Reason: Protocol Last Admin: 05/12/17 06:06 Dose: Not Given Insulin Detemir (Levemir Vial) 40 units SQ HS [facility] Last Admin: 05/11/17 21:13 Dose: Not Given Lisinopril (Prinivil) 20 mg PO DAILY [facility] Last Admin: 05/12/17 09:54 Dose: 20 mg Metformin HCl (Glucophage -) 500 mg PO BIDAC [facility] Last Admin: 05/12/17 06:06 Dose: Not Given Multivitamins/Minerals/Vitamin C (Tab-A-Vit -) 1 tab PO DAILY [facility] Last Admin: 05/11/17 09:41 Dose: 1 tab Nadolol (Corgard -) 20 mg PO DAILY [facility] Last Admin: 05/12/17 09:54 Dose: 20 mg Pantoprazole Sodium (Protonix -) 40 mg PO DAILY [facility] Last Admin: 05/11/17 09:41 Dose: 40 mg Spironolactone (Aldactone -) 25 mg PO DAILY [facility] Last Admin: 05/11/17 09:41 Dose: 25 mg - Objective Vital Signs: Vital Signs Temperature 98.3 F 05/12/17 05:00 Pulse Rate 59 L 05/12/17 05:00 Respiratory Rate 20 05/12/17 09:00 Blood Pressure 110/50 05/12/17 05:00 O2 Sat by Pulse Oximetry (%) 100 05/12/17 09:00 Constitutional: Yes: Well Nourished, No Distress, Calm Cardiovascular: Yes: Regular Rate and Rhythm Respiratory: Yes: Regular Gastrointestinal: Yes: Abdomen, Obese, Ascites Musculoskeletal: Yes: WNL Extremities: Yes: WNL Edema: Yes Peripheral Pulses WNL: Yes Wound/Incision: Yes: Dressing Dry and Intact Neurological: Yes: Alert, Oriented Psychiatric: Yes: Alert, Oriented Labs: CBC, BMP 05/12/17 06:00 05/12/17 06:00 INR, PTT INR 1.12 (0.82-1.09) D 05/10/17 18:35 Problem List - Problems (1) Ascites Assessment/Plan: Paracentesis yesterday 8300 ml removed -received albumin Code(s): R18.8 - OTHER ASCITES Qualifiers: Ascites type: other type Qualified Code(s): R18.8 - Other ascites (2) Esophageal varices Assessment/Plan: -seen by GI -EGD today Code(s): I85.00 - ESOPHAGEAL VARICES WITHOUT BLEEDING (3) HCC (hepatocellular carcinoma) Code(s): C22.0 - LIVER CELL CARCINOMA (4) Liver cirrhosis Code(s): K74.60 - UNSPECIFIED CIRRHOSIS OF LIVER (5) Diabetes 1.5, managed as type 2 Assessment/Plan: -insulin sliding scale -diabetic diet -hypoglycemia protocol Code(s): E13.9 - OTHER SPECIFIED DIABETES MELLITUS WITHOUT COMPLICATIONS (6) Anemia Assessment/Plan: -hematology consult -stool OB pending -Iron profile pending, B12, folate, TSH, Ft4-normal -repeat labs in AM -2 units PRBC Code(s): D64.9 - ANEMIA, UNSPECIFIED Assessment/Plan see problem list
[2017-05-12] MEDS ORDERED: PROPOFOL 20 ML ONE (10:46)
--- NOTE | 2017-05-12 11:21 | PROC ---
Endoscopy Procedure Endoscopy procedure completed. Please see scanned procedure report. 3 columns, Grade III, with stigmata of impending bleeding, varices found and banded. No immediate complications Erosive, with petichial hemorrhages, gastritis in the antrum, and portal hypertiensive gastropathy in the body and the fundus were found and biopsied. Carafate 1 gm po qid PPI po bid Nadalol 40 mg po qd Transfuse 2 units of PRBC Hgb q 6 hr x 4 Clear liquid diet today
[2017-05-12 11:23] LABS: ANISOCYTOSIS 2+; MACROCYTOSIS 1+; PLATELET ESTIMATE DECREASED
[2017-05-12] MEDS: ASPIRIN 81 MG CHEWABLE TABLETS PO SCH (14:10)
[2017-05-12] MEDS: SPIRONOLACTONE 25 MG TABLET (FP) PO SCH (14:10)
[2017-05-12] MEDS: PANTOPRAZOLE 40 MG TABLET (FP) PO SCH ×2 (14:10→21:34)
[2017-05-12] MEDS: MULTIVITAMINS (DAILY MVI) TABLET (FP) PO SCH (14:10)
[2017-05-12] MEDS: SUCRALFATE 1 GM TABLET (FP) PO SCH ×3 (14:12→21:34)
--- NOTE | 2017-05-12 15:04 | PATH ---
Cytology Non-Gynecological Report Patient Name: [facility]. Rec. #: [id number] /Age/Gender: 1960 (Age: 57) / M Account: [id number] Location: [facility] MED/SURG Taken: 05/11/2017 Received: 05/11/2017 Reported: 05/12/2017 Physicians: Pedrito Navarro M.D. Specimen(s) Received A: ASCITES FLUID RIGHT LOWER QUADRANT B: ASCITES FLUID RIGHT LOWER QUADRANT Clinical History Ascites Final Diagnosis A & B. ABDOMINAL FLUID, RIGHT LOWER QUADRANT, PARACENTESIS: SATISFACTORY FOR EVALUATION. NO MALIGNANT CELLS IDENTIFIED. SCATTERED MESOTHELIAL CELLS PRESENT. Electronically Signed Chrissie Cassidy M.D. Gross Description A. Approximately 15 cc of yellow fluid received fixed in 50% alcohol. Two cytofunnels and one cellblock prepared. B. Approximately 9000 cc of yellow fluid received fresh. Two cytofunnels and one cellblock prepared.
[2017-05-12 16:52] LABS: BASO % 0.6 % (0-2.0); EOS % 1.8 % (0-4.5); HEMATOCRIT 24.5 % (35.4-49); HEMOGLOBIN 8.1 GM/dL (11.7-16.9); LYMPH % 15.9 % (8-40); MCH 31.2 pg (25.7-33.7); MCHC 33.1 g/dl (32.0-35.9); MEAN PLT VOLUME 8.3 fl (7.5-11.1); NEUT % 71.7 % (42.8-82.8); PLATELET COUNT 82 K/MM3 (134-434); RBC 2.61 M/mm3 (4.00-5.60); RDW 22.8 % (11.9-15.9); WHITE BLOOD COUNT 3.5 K/mm3 (4.0-10.0)
[2017-05-12] MEDS: COLLAGENASE CLOSTRIDIUM HIST. 30 GRAMS TUBE TP SCH (17:42)
[2017-05-12] MEDS ORDERED: INSULIN (NOVOLOG) ASPART 100 UNITS/ML 10ML VIAL ONE (17:48)
--- NOTE | 2017-05-12 18:17 | PN ---
Progress Note (short form) - Note Progress Note: Patient seen and examined. O/E: Constitutional: Yes: Well Nourished, No Distress, Calm Eyes: Yes: WNL, Conjunctiva Clear HENT: Yes: Normocephalic Neck: Yes: Supple, Trachea Midline Cardiovascular: Yes: WNL, Regular Rate and Rhythm, Bradycardia, S1, S2 Respiratory: Yes: Regular, CTA Bilaterally Gastrointestinal:+ obsesity, at his baseline per him. Neurological: Yes: Alert, Oriented Last Vital Signs Temp Pulse Resp BP Pulse Ox 98.2 F 51 L 20 99/54 99 05/12/17 15:06 05/12/17 15:06 05/12/17 15:06 05/12/17 15:06 05/12/17 11:51 CBC, BMP 05/12/17 15:00 05/12/17 06:00 Current Medications Generic Name Dose Route Start Last Admin Trade Name Freq PRN Reason Stop Dose Admin Albuterol/Ipratropium 1 amp 05/11/17 12:00 05/12/17 11:10 Duoneb - NEB Not Given QIDR J CARLOS Aspirin 81 mg 05/12/17 10:00 05/12/17 14:10 Asa - PO 81 mg DAILY J CARLOS Administration Atorvastatin Calcium 10 mg 05/11/17 22:00 05/11/17 21:12 Lipitor - PO 10 mg HS J CARLOS Administration Collagenase 1 applic 05/12/17 10:00 05/12/17 17:42 Santyl - TP 1 applic DAILY J CARLOS Administration Dextrose 25 gm 05/11/17 11:43 D50w (Vial) - IVPUSH PRN PRN Hypoglycemia. Ergocalciferol 50,000 unit 05/12/17 10:00 Drisdol - PO DAILY J CARLOS Furosemide 40 mg 05/11/17 10:00 05/12/17 09:54 Lasix - PO 40 mg DAILY J CARLOS Administration Insulin Aspart 1 vial 05/11/17 16:30 05/12/17 17:49 Novolog Vial Sliding Scale - SQ 2 units TIDAC J CARLOS Administration Protocol Insulin Detemir 40 units 05/11/17 22:00 05/11/17 21:13 Levemir Vial SQ Not Given HS J CARLOS Lisinopril 20 mg 05/12/17 10:00 05/12/17 09:54 Prinivil PO 20 mg DAILY J CARLOS Administration Metformin HCl 500 mg 05/11/17 16:30 05/12/17 17:41 Glucophage - PO 500 mg BIDAC J CARLOS Administration Multivitamins/Minerals/Vitamin C 1 tab 05/11/17 10:00 05/12/17 14:10 Tab-A-Vit - PO 1 tab DAILY J CARLOS Administration Nadolol 40 mg 05/13/17 10:00 Corgard - PO DAILY J CARLOS Pantoprazole Sodium 40 mg 05/12/17 22:00 Protonix - PO BID J CARLOS Spironolactone 25 mg 05/11/17 10:00 05/12/17 14:10 Aldactone - PO 25 mg DAILY J CARLOS Administration Sucralfate 1 gm 05/12/17 14:00 05/12/17 17:42 Carafate - PO 1 gm QID J CARLOS Administration EGD noted for PRBCs if platelets <50K, will transfuse close monitoring Rest per Primary Problem List - Problems (1) Esophageal varices Code(s): I85.00 - ESOPHAGEAL VARICES WITHOUT BLEEDING (2) HCC (hepatocellular carcinoma) Code(s): C22.0 - LIVER CELL CARCINOMA (3) Ascites due to alcoholic cirrhosis Code(s): K70.31 - ALCOHOLIC CIRRHOSIS OF LIVER WITH ASCITES (4) Anemia Code(s): D64.9 - ANEMIA, UNSPECIFIED (5) Portal vein thrombosis Code(s): I81 - PORTAL VEIN THROMBOSIS
[2017-05-12] MEDS: ATORVASTATIN CA 10 MG TABLET (FP) PO SCH (21:34)
[2017-05-12] MEDS: INSULIN DETEMIR 100 UNITS/ML MDV SQ SCH (21:36)
[2017-05-13] MEDS: ALBUTEROL SO4 2.5/IPRATROPIUM 0.5 INH SOL 3 ML VIAL.NEB. NEB SCH ×3 (05:09→17:10)
[2017-05-13] MEDS: INSULIN SLIDING SCALE (NOVOLOG) 1 VIAL SQ SCH ×3 (06:05→18:31)
[2017-05-13 06:08] LABS: SERUM IRON SATURATION 26 % (15-55); TOTAL IRON BINDING CAPACITY 133 ug/dL (250-450); UIBC 98 ug/dL (111-343)
[2017-05-13] MEDS: metFORMIN HCL 500 MG TABLET (FP) PO SCH ×2 (06:33→18:31)
[2017-05-13] MEDS: SPIRONOLACTONE 25 MG TABLET (FP) PO SCH (09:30)
[2017-05-13] MEDS: ASPIRIN 81 MG CHEWABLE TABLETS PO SCH (09:30)
[2017-05-13] MEDS: NADOLOL 20 MG TABLET (FP) PO SCH (09:31)
[2017-05-13] MEDS: FUROSEMIDE 40 MG TABLET (FP) PO SCH (09:32)
[2017-05-13] MEDS: LISINOPRIL 20 MG TABLET (FP) PO SCH (09:33)
[2017-05-13] MEDS: PANTOPRAZOLE 40 MG TABLET (FP) PO SCH ×2 (09:34→22:54)
[2017-05-13] MEDS: MULTIVITAMINS (DAILY MVI) TABLET (FP) PO SCH (09:34)
[2017-05-13] MEDS: COLLAGENASE CLOSTRIDIUM HIST. 30 GRAMS TUBE TP SCH (09:35)
[2017-05-13] MEDS ORDERED: PT OWN MED DRAWER 7, Y5N ONE (09:42)
[2017-05-13] MEDS: SUCRALFATE 1 GM TABLET (FP) PO SCH ×4 (09:44→22:53)
--- NOTE | 2017-05-13 10:27 | PN ---
Progress Note, Physician Chief Complaint: Ascitis History of Present Illness: NAD, in bed, had EGD yesterday-showed 3 columns, Grade III, with stigmata of impending bleeding, varices found and banded, placed on nadolol. Platelets fluctuating, transfuse if below 50K as per hematology received 2 units PRBC repeat labs now seen by Hematology stool OB negative Iron studies normal B12, TSH, FT4 normal wants to go home - Current Medication List Current Medications: Active Medications Albuterol/Ipratropium (Duoneb -) 1 amp NEB QIDR [facility] Last Admin: 05/13/17 05:09 Dose: Not Given Aspirin (Asa -) 81 mg PO DAILY [facility] Last Admin: 05/13/17 09:30 Dose: 81 mg Atorvastatin Calcium (Lipitor -) 10 mg PO HS [facility] Last Admin: 05/12/17 21:34 Dose: 10 mg Collagenase (Santyl -) 1 applic TP DAILY [facility] Last Admin: 05/13/17 09:35 Dose: 1 applic Dextrose (D50w (Vial) -) 25 gm IVPUSH PRN PRN PRN Reason: Hypoglycemia. Ergocalciferol (Drisdol -) 50,000 unit PO DAILY [facility] Furosemide (Lasix -) 40 mg PO DAILY [facility] Last Admin: 05/13/17 09:32 Dose: 40 mg Insulin Aspart (Novolog Vial Sliding Scale -) 1 vial SQ TIDAC [facility] PRN Reason: Protocol Last Admin: 05/13/17 06:05 Dose: Not Given Insulin Detemir (Levemir Vial) 40 units SQ HS [facility] Last Admin: 05/12/17 21:36 Dose: Not Given Lisinopril (Prinivil) 20 mg PO DAILY [facility] Last Admin: 05/13/17 09:33 Dose: 20 mg Metformin HCl (Glucophage -) 500 mg PO BIDAC [facility] Last Admin: 05/13/17 06:33 Dose: 500 mg Multivitamins/Minerals/Vitamin C (Tab-A-Vit -) 1 tab PO DAILY [facility] Last Admin: 05/13/17 09:34 Dose: 1 tab Nadolol (Corgard -) 40 mg PO DAILY [facility] Last Admin: 05/13/17 09:31 Dose: 40 mg Pantoprazole Sodium (Protonix -) 40 mg PO BID [facility] Last Admin: 05/13/17 09:34 Dose: 40 mg Spironolactone (Aldactone -) 25 mg PO DAILY [facility] Last Admin: 05/13/17 09:30 Dose: 25 mg Sucralfate (Carafate -) 1 gm PO QID [facility] Last Admin: 05/13/17 09:44 Dose: 1 gm - Objective Vital Signs: Vital Signs Temperature 98.7 F 05/13/17 06:00 Pulse Rate 52 L 05/13/17 06:00 Respiratory Rate 18 05/13/17 06:00 Blood Pressure 120/52 05/13/17 06:00 O2 Sat by Pulse Oximetry (%) 100 05/12/17 21:00 Constitutional: Yes: Well Nourished, No Distress, Calm Cardiovascular: Yes: Regular Rate and Rhythm Respiratory: Yes: Regular Gastrointestinal: Yes: Ascites Musculoskeletal: Yes: WNL Extremities: Yes: WNL Edema: Yes Edema: LLE: 1+, RLE: 1+ Peripheral Pulses WNL: Yes Wound/Incision: Yes: Dressing Dry and Intact Neurological: Yes: Alert, Oriented Psychiatric: Yes: Alert, Oriented Labs: CBC, BMP 05/12/17 15:00 05/12/17 06:00 INR, PTT INR 1.12 (0.82-1.09) D 05/10/17 18:35 Problem List - Problems (1) Ascites Assessment/Plan: Paracentesis done 8300 ml removed -received albumin Code(s): R18.8 - OTHER ASCITES Qualifiers: Ascites type: other type Qualified Code(s): R18.8 - Other ascites (2) Esophageal varices Assessment/Plan: -seen by GI -EGD showed-3 columns, Grade III, with stigmata of impending bleeding, varices found and banded -started on Nadolol Code(s): I85.00 - ESOPHAGEAL VARICES WITHOUT BLEEDING (3) HCC (hepatocellular carcinoma) Code(s): C22.0 - LIVER CELL CARCINOMA (4) Liver cirrhosis Assessment/Plan: -managed by GI -sees Dr Rivera at [facility] -on lactulose Code(s): K74.60 - UNSPECIFIED CIRRHOSIS OF LIVER (5) Diabetes 1.5, managed as type 2 Assessment/Plan: -insulin sliding scale -diabetic diet -hypoglycemia protocol Code(s): E13.9 - OTHER SPECIFIED DIABETES MELLITUS WITHOUT COMPLICATIONS (6) Anemia Assessment/Plan: -hematology consult -stool OB negative -Iron profile pending, B12, folate, TSH, Ft4-normal -repeat labs now -recieved 2 units PRBC -observe for drop in PLT Code(s): D64.9 - ANEMIA, UNSPECIFIED Assessment/Plan see problem list Physical therapy
[2017-05-13 11:07] LABS: BASO % 0.6 % (0-2.0); EOS % 2.2 % (0-4.5); HEMATOCRIT 29.9 % (35.4-49); HEMOGLOBIN 9.8 GM/dL (11.7-16.9); LYMPH % 14.6 % (8-40); MCH 29.9 pg (25.7-33.7); MCHC 32.7 g/dl (32.0-35.9); MEAN CELL VOLUME 91.3 fl (80-96); MEAN PLT VOLUME 7.6 fl (7.5-11.1); MONO % 11.3 % (3.8-10.2); NEUT % 71.3 % (42.8-82.8); PLATELET COUNT 84 K/MM3 (134-434); RBC 3.28 M/mm3 (4.00-5.60); RDW 22.1 % (11.9-15.9); WHITE BLOOD COUNT 4.7 K/mm3 (4.0-10.0)
[2017-05-13 11:16] LABS: ADD RBC MORPHOLOGY YES
[2017-05-13 11:32] LABS: ALBUMIN 2.5 g/dl (3.4-5.0); ALK PHOS 170 U/L (45-117); ANION GAP 4 (8-16); BILIRUBIN,TOTAL 2.3 mg/dL (0.2-1.0); BLOOD UREA NITROGEN 18 mg/dL (7-18); CALCIUM 7.9 mg/dL (8.5-10.1); CHLORIDE 106 mmol/L (98-107); CO2 26 mmol/L (21-32); CREATININE 1.2 mg/dL (0.7-1.3); GLUCOSE,RANDOM 204 mg/dL (74-106); POTASSIUM 4.4 mmol/L (3.5-5.1); SGOT/AST 29 U/L (15-37); SGPT/ALT 8 U/L (12-78); SODIUM 136 mmol/L (136-145); TOT PROT 6.5 g/dl (6.4-8.2)
--- NOTE | 2017-05-13 13:04 | PATH ---
Surgical Pathology Report Patient Name: JAYSON STRAUSS Med. Rec. #: [id number] /Age/Gender: 1960 (Age: 57) / M Account: [id number] Location: [facility] MED/SURG Taken: 05/12/2017 Received: 05/12/2017 Reported: 05/13/2017 Physicians: Pedrito Li M.D. Specimen(s) Received A: BX DUODENUM B: BX ANTRUM Clinical History Preoperative diagnosis: History of esophageal varices Postoperative diagnosis: Erosive gastritis, antral gastritis, grade 3 esophageal varices Final Diagnosis A. DUODENUM, BIOPSY: DUODENAL MUCOSA WITHOUT SIGNIFICANT PATHOLOGIC FINDINGS. B. STOMACH, ANTRUM/BODY, BIOPSY: GASTRIC ANTRAL AND BODY MUCOSA WITH MILD CHRONIC ACTIVE GASTRITIS. IMMUNOHISTOCHEMICAL STAIN FOR H. PYLORI IS NEGATIVE. Electronically Signed Chrissie Cassidy M.D. Gross Description A. Received in formalin, labeled "biopsy duodenum" is a mcgill, irregular portion of soft tissue measuring 0.3 cm. in greatest dimension. The specimen is submitted in toto in one cassette. B. Received in formalin, labeled "biopsy antrum/body" is a mcgill, irregular portion of soft tissue measuring 0.4 cm. in greatest dimension. The specimen is submitted in toto in one cassette. 05/12/201705/12/2017
--- NOTE | 2017-05-13 13:39 | PN ---
Progress Note, Physician History of Present Illness: No events, pain-free, feels well. Peritoneal fluid results noted ?albumin - Current Medication List Current Medications: Active Medications Albuterol/Ipratropium (Duoneb -) 1 amp NEB QIDR [facility] Last Admin: 05/13/17 11:57 Dose: Not Given Aspirin (Asa -) 81 mg PO DAILY [facility] Last Admin: 05/13/17 09:30 Dose: 81 mg Atorvastatin Calcium (Lipitor -) 10 mg PO HS [facility] Last Admin: 05/12/17 21:34 Dose: 10 mg Collagenase (Santyl -) 1 applic TP DAILY [facility] Last Admin: 05/13/17 09:35 Dose: 1 applic Dextrose (D50w (Vial) -) 25 gm IVPUSH PRN PRN PRN Reason: Hypoglycemia. Ergocalciferol (Drisdol -) 50,000 unit PO DAILY [facility] Furosemide (Lasix -) 40 mg PO DAILY [facility] Last Admin: 05/13/17 09:32 Dose: 40 mg Insulin Aspart (Novolog Vial Sliding Scale -) 1 vial SQ TIDAC [facility] PRN Reason: Protocol Last Admin: 05/13/17 06:05 Dose: Not Given Insulin Detemir (Levemir Vial) 40 units SQ HS [facility] Last Admin: 05/12/17 21:36 Dose: Not Given Lisinopril (Prinivil) 20 mg PO DAILY [facility] Last Admin: 05/13/17 09:33 Dose: 20 mg Metformin HCl (Glucophage -) 500 mg PO BIDAC [facility] Last Admin: 05/13/17 06:33 Dose: 500 mg Multivitamins/Minerals/Vitamin C (Tab-A-Vit -) 1 tab PO DAILY [facility] Last Admin: 05/13/17 09:34 Dose: 1 tab Nadolol (Corgard -) 40 mg PO DAILY [facility] Last Admin: 05/13/17 09:31 Dose: 40 mg Pantoprazole Sodium (Protonix -) 40 mg PO BID [facility] Last Admin: 05/13/17 09:34 Dose: 40 mg Spironolactone (Aldactone -) 25 mg PO DAILY [facility] Last Admin: 05/13/17 09:30 Dose: 25 mg Sucralfate (Carafate -) 1 gm PO QID [facility] Last Admin: 05/13/17 09:44 Dose: 1 gm - Objective Vital Signs: Vital Signs Temperature 98.7 F 05/13/17 06:00 Pulse Rate 52 L 05/13/17 06:00 Respiratory Rate 18 05/13/17 06:00 Blood Pressure 120/52 05/13/17 06:00 O2 Sat by Pulse Oximetry (%) 100 05/13/17 09:00 Constitutional: Yes: No Distress, Calm Eyes: Yes: Conjunctiva Clear HENT: Yes: Atraumatic Neck: Yes: Supple Cardiovascular: Yes: Regular Rate and Rhythm Respiratory: Yes: Regular Gastrointestinal: Yes: Ascites, Distention. No: Melena, Rectal Bleeding, Tenderness, Epigastrium, Tenderness, Rebound, Vomiting Neurological: Yes: Alert, Oriented Labs: CBC, BMP 05/13/17 10:59 05/13/17 10:59 INR, PTT INR 1.12 (0.82-1.09) D 05/10/17 18:35 Laboratory Results - last 24 hr 05/11/17 05/12/17 05/12/17 01:12 06:00 15:00 WBC 3.5 L RBC 2.61 L Hgb 8.1 L D Hct 24.5 L MCV 94.0 MCH 31.2 MCHC 33.1 RDW 22.8 H Plt Count 82 L MPV 8.3 Neutrophils % 71.7 Lymphocytes % 15.9 D Monocytes % 10.0 Eosinophils % 1.8 Basophils % 0.6 Sodium Potassium Chloride Carbon Dioxide Anion Gap BUN Creatinine Creat Clearance w eGFR POC Glucometer Random Glucose Calcium Iron 35 L TIBC 133 L Iron Saturation 26 Total Bilirubin AST ALT Alkaline Phosphatase Total Protein Albumin Stool Occult Blood Blood Type A POSITIVE Crossmatch See Detail 05/12/17 05/12/17 05/12/17 16:36 18:30 21:32 WBC RBC Hgb Hct MCV MCH MCHC RDW Plt Count MPV Neutrophils % Lymphocytes % Monocytes % Eosinophils % Basophils % Sodium Potassium Chloride Carbon Dioxide Anion Gap BUN Creatinine Creat Clearance w eGFR POC Glucometer 238 201 Random Glucose Calcium Iron TIBC Iron Saturation Total Bilirubin AST ALT Alkaline Phosphatase Total Protein Albumin Stool Occult Blood Negative Blood Type Crossmatch 05/13/17 05/13/17 05/13/17 05:38 10:59 10:59 WBC 4.7 D RBC 3.28 L D Hgb 9.8 L D Hct 29.9 L D MCV 91.3 MCH 29.9 MCHC 32.7 RDW 22.1 H Plt Count 84 L MPV 7.6 Neutrophils % 71.3 Lymphocytes % 14.6 Monocytes % 11.3 H Eosinophils % 2.2 Basophils % 0.6 Sodium 136 Potassium 4.4 Chloride 106 Carbon Dioxide 26 Anion Gap 4 L BUN 18 D Creatinine 1.2 Creat Clearance w eGFR > 60 POC Glucometer 141 Random Glucose 204 H D Calcium 7.9 L Iron TIBC Iron Saturation Total Bilirubin 2.3 H D AST 29 D ALT 8 L D Alkaline Phosphatase 170 H D Total Protein 6.5 Albumin 2.5 L Stool Occult Blood Blood Type Crossmatch 05/13/17 12:03 WBC RBC Hgb Hct MCV MCH MCHC RDW Plt Count MPV Neutrophils % Lymphocytes % Monocytes % Eosinophils % Basophils % Sodium Potassium Chloride Carbon Dioxide Anion Gap BUN Creatinine Creat Clearance w eGFR POC Glucometer 193 Random Glucose Calcium Iron TIBC Iron Saturation Total Bilirubin AST ALT Alkaline Phosphatase Total Protein Albumin Stool Occult Blood Blood Type Crossmatch Problem List - Problems (1) Esophageal varices Code(s): I85.00 - ESOPHAGEAL VARICES WITHOUT BLEEDING (2) HCC (hepatocellular carcinoma) Code(s): C22.0 - LIVER CELL CARCINOMA (3) Liver cirrhosis Code(s): K74.60 - UNSPECIFIED CIRRHOSIS OF LIVER (4) Ascites Code(s): R18.8 - OTHER ASCITES Qualifiers: Ascites type: other type Qualified Code(s): R18.8 - Other ascites (5) Abdominal distension Code(s): R14.0 - ABDOMINAL DISTENSION (GASEOUS) (6) Ascites due to alcoholic cirrhosis Code(s): K70.31 - ALCOHOLIC CIRRHOSIS OF LIVER WITH ASCITES Assessment/Plan Low salt diet EGD revealed EV grade III with stigmata, banded. continue the same management titrate up aldactone and lasix, CMP in am
--- NOTE | 2017-05-13 15:50 | DS ---
Physical Examination Vital Signs: Vital Signs Temperature 97.4 F L 05/13/17 14:00 Pulse Rate 48 L 05/13/17 14:00 Respiratory Rate 18 05/13/17 14:00 Blood Pressure 121/68 05/13/17 14:00 O2 Sat by Pulse Oximetry (%) 100 05/13/17 09:00 Constitutional: Yes: Well Nourished, No Distress, Calm Cardiovascular: Yes: Regular Rate and Rhythm Respiratory: Yes: Regular Gastrointestinal: Yes: Normal Bowel Sounds, Abdomen, Obese, Ascites Edema: Yes Edema: LLE: Trace, RLE: Trace Peripheral Pulses WNL: Yes Wound/Incision: Yes: Dressing Dry and Intact Neurological: Yes: Alert, Oriented Psychiatric: Yes: Alert, Oriented Labs: CBC, BMP 05/13/17 10:59 05/13/17 10:59 Discharge Summary Reason For Visit: ASCITES Current Active Problems Ascites (Acute) Esophageal varices (Acute) HCC (hepatocellular carcinoma) (Acute) Liver cirrhosis (Acute) Hospital Course: his is a 57 y/o man with a significant medical history of HTN, HLD, Portal Vein Thrombosis, Ascites, GI Bleed, Esophageal Varices, Peripheral Neuropathy, Hemorrhoids. Who presents to the ED sent in by Dr. Gasca for admission secondary to abdominal distention, increased SOB. Patient reports the abdominal distention started 2 weeks ago. Patient states" I find it difficult to breath, sleep. Patient reports wheezing and continued swelling to his lower extremities. Patient reports having a Paracentesis done several months ago having 9L removed. Patient denies fever, chills, dizziness, CP, AP, N/V/D, constipation, dysuria. Condition: Stable - Instructions Diet, Activity, Other Instructions: -Cefzolin 2 g Q8H IVPB for 2 weeks -F/U with Nikki Monzon in 2 weeks by calling at [phone] Referrals: Roxanne Duran MD [Primary Care Provider] - Disposition: VNS/HOME HEALTH CARE - Home Medications Comprehensive Discharge Medication List: Ambulatory Orders Furosemide [Lasix] 40 mg PO DAILY 07/15/16 Insulin Detemir [Levemir Flextouch] 40 unit SQ DAILY 07/15/16 Multivitamins [Multivit ([facility] Formulary)] 1 tab PO DAILY 07/15/16 Nateglinide [Starlix (Nf) -] 60 mg PO BID 07/15/16 Metformin HCl 500 mg PO BID 08/09/16 Aspirin [ASA -] 81 mg PO DAILY tab.chew 10/30/16 Albuterol 2.5/Ipratropium 0.5 [Duoneb -] 1 amp NEB QIDR #30 amp 12/11/16 Atorvastatin Ca [Lipitor] 10 mg PO HS #30 tab 12/11/16 Nadolol 20 mg PO DAILY #30 tab 12/11/16 Pantoprazole Sodium [Protonix] 40 mg PO DAILY #30 tab 12/11/16 Benazepril HCl [Lotensin] 20 mg PO DAILY 03/28/17 Ergocalciferol (Vitamin D2) [Vitamin D2] 50,000 unit PO DAILY 03/28/17 Collagenase Clostridium Hist. [Santyl] 1 applic TP DAILY #90 oint...g. 05/02/17 Insulin (Levemir) [Levemir Vial] 40 units SQ HS 05/11/17
[2017-05-13 16:33] LABS: BASO % 0.5 % (0-2.0); EOS % 2.1 % (0-4.5); HEMATOCRIT 29.6 % (35.4-49); HEMOGLOBIN 9.9 GM/dL (11.7-16.9); LYMPH % 14.4 % (8-40); MCH 30.7 pg (25.7-33.7); MCHC 33.6 g/dl (32.0-35.9); MEAN CELL VOLUME 91.4 fl (80-96); MEAN PLT VOLUME 8.7 fl (7.5-11.1); MONO % 12.1 % (3.8-10.2); NEUT % 70.9 % (42.8-82.8); PLATELET COUNT 91 K/MM3 (134-434); RBC 3.24 M/mm3 (4.00-5.60); RDW 22.2 % (11.9-15.9); WHITE BLOOD COUNT 4.8 K/mm3 (4.0-10.0)
[2017-05-13 16:39] LABS: ADD RBC MORPHOLOGY YES
[2017-05-13] MEDS ORDERED: INSULIN (NOVOLOG) ASPART 100 UNITS/ML 10ML VIAL ONE ×2 (17:37→21:06)
[2017-05-13 22:03] LABS: ANISOCYTOSIS 2+; OVALOCYTE 1+; PLATELET ESTIMATE SLT DECREASE; TEAR DROP CELLS RARE
[2017-05-13] MEDS: INSULIN DETEMIR 100 UNITS/ML MDV SQ SCH (22:53)
[2017-05-13] MEDS: ATORVASTATIN CA 10 MG TABLET (FP) PO SCH (22:54)
[2017-05-14] MEDS: ALBUTEROL SO4 2.5/IPRATROPIUM 0.5 INH SOL 3 ML VIAL.NEB. NEB SCH ×2 (00:20→07:31)
[2017-05-14 01:39] VITALS: TEMP 98.6
[2017-05-14] MEDS: INSULIN SLIDING SCALE (NOVOLOG) 1 VIAL SQ SCH (05:59)
[2017-05-14 06:17] VITALS: BP 103/49; PULSE 52
[2017-05-14] MEDS: metFORMIN HCL 500 MG TABLET (FP) PO SCH (06:17)
[2017-05-14 08:11] LABS: ALBUMIN 2.4 g/dl (3.4-5.0); ALK PHOS 165 U/L (45-117); ANION GAP 10 (8-16); BILIRUBIN,TOTAL 1.2 mg/dL (0.2-1.0); BLOOD UREA NITROGEN 17 mg/dL (7-18); CALCIUM 8.4 mg/dL (8.5-10.1); CHLORIDE 106 mmol/L (98-107); CO2 24 mmol/L (21-32); CREATININE 1.2 mg/dL (0.7-1.3); GLUCOSE,RANDOM 136 mg/dL (74-106); POTASSIUM 4.3 mmol/L (3.5-5.1); SGOT/AST 29 U/L (15-37); SGPT/ALT 9 U/L (12-78); SODIUM 140 mmol/L (136-145); TOT PROT 6.1 g/dl (6.4-8.2)
[2017-05-14] MEDS: FUROSEMIDE 40 MG TABLET (FP) PO SCH (09:01)
[2017-05-14] MEDS: LISINOPRIL 20 MG TABLET (FP) PO SCH (09:01)
[2017-05-14] MEDS: NADOLOL 20 MG TABLET (FP) PO SCH (09:01)
[2017-05-14] MEDS: ASPIRIN 81 MG CHEWABLE TABLETS PO SCH (09:02)
[2017-05-14] MEDS: MULTIVITAMINS (DAILY MVI) TABLET (FP) PO SCH (09:02)
[2017-05-14] MEDS: PANTOPRAZOLE 40 MG TABLET (FP) PO SCH (09:03)
[2017-05-14] MEDS: COLLAGENASE CLOSTRIDIUM HIST. 30 GRAMS TUBE TP SCH (09:03)
[2017-05-14] MEDS ORDERED: SPIRONOLACTONE 25 MG TABLET (FP) PO SCH (10:00)
== END 2017-05-14 11:05 | disposition home health service (06) | DRG 441 ==
LOC: JER 13:25 → INTOOBSV 22:11 → JERBED 22:11 → J7W 05-11 04:10 → OBSVTOIN 05-12 11:20
PROVIDERS: ADMIT Family Medicine; ATTEND Family Medicine
PROC: 0W9G30Z Drainage of Peritoneal Cavity with Drainage Device, Percutaneous Approach (ICD-10-PCS; principal; 2017-05-11)
PROC: 30233H1 Transfusion of Nonautologous Whole Blood into Peripheral Vein, Percutaneous Approach (ICD-10-PCS; 2017-05-12)
PROC: 0DD68ZX Extraction of Stomach, Via Natural or Artificial Opening Endoscopic, Diagnostic (ICD-10-PCS; 2017-05-12)
PROC: 06L38CZ Occlusion of Esophageal Vein with Extraluminal Device, Via Natural or Artificial Opening Endoscopic (ICD-10-PCS; 2017-05-12)
DX: K75.81 Nonalcoholic steatohepatitis (NASH) (principal); I85.11 Secondary esophageal varices with bleeding; R18.8 Other ascites; C22.0 Liver cell carcinoma; K76.6 Portal hypertension; Z79.4 Long term (current) use of insulin; I25.10 Atherosclerotic heart disease of native coronary artery without angina pectoris; Z95.5 Presence of coronary angioplasty implant and graft; I10 Essential (primary) hypertension; Z76.82 Awaiting organ transplant status; E11.40 Type 2 diabetes mellitus with diabetic neuropathy, unspecified; Z89.422 Acquired absence of other left toe(s); Z89.421 Acquired absence of other right toe(s); Z79.84 Long term (current) use of oral hypoglycemic drugs; E66.9 Obesity, unspecified; Z68.38 Body mass index [BMI] 38.0-38.9, adult; D64.9 Anemia, unspecified; D69.6 Thrombocytopenia, unspecified; K31.89 Other diseases of stomach and duodenum; K29.00 Acute gastritis without bleeding; K74.60 Unspecified cirrhosis of liver
CPT/HCPCS: 36415; 36430; 36511; 71010-TC; 76942-TC; 80048; 80053; 82150; 82272; 82607; 82728; 82945; 83540; 83550; 83615; 84157; 84439; 84443; 85025; 85610; 85730; 86850; 86900; 86901; 86922; 87070; 87075; 87102; 87116; 87205; 87206; 87210; 87899; 88108; 88305-TC; 89050; 89051; 93005; 93010; 94640; 99282-25; G0378; G0463-25; J1644; P9038; P9047; P9058

== ENCOUNTER 2017-09-30 13:05 | Inpatient (IN) | payer MEDICARE, OTHER ==
--- NOTE | 2017-09-30 13:37 | PDOC ---
History of Present Illness <Juarez Diaz - Last Filed: 09/30/17 15:39> - General History Source: Patient Exam Limitations: No Limitations - History of Present Illness Initial Comments: 09/30/17 16:06 The patient is a 57 year old male, accompanied by , with a significant past medical history of anemia, liver cell carcinoma, hepatic encephalopathy ( patient is on a liver transplant list), hypertension, hyperlipidemia, CVA, IDDM , gastritis, esophageal varices who presents to the emergency department for left foot wound for about a month. reports patient was being followed at wound care for his foot wound, which has been gradually worsening over the past month. reports increased erythema, warmth, and bloody discharge from wound site. She states patient has left foot numbness at baseline. reports new onset of cough, fever, and fatigue since yesterday, but no chills, headache, or dizziness. Per Dr. Mckeon, patients ID doctor, he was concerned patient was septic and was sent to the ED today for further evaluation and possible debridement. reports patients last meal was at 09:00 this morning. Patient denies any abdominal pain, nausea, vomiting, diarrhea, or constipation. Allergies: Iodinated Contrast Media (Oral and IV) Past Surgical History: Cholecystectomy. Cardiac stent placement. Left 4th digit amputation. Social History: Non smoker. No ETOH or recreational drug use. PCP: Dr. Roxanne Duran ID: Dr. 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 Scanlon <Judy Briceño - Last Filed: 09/30/17 16:07> - General Chief Complaint: Wound Stated Complaint: LT FOOT WOUND (WC SENT) Past History - Past Medical History Anemia: Yes Asthma: No Cancer: Yes (LIVER) Cardiac Disorders: Yes CVA: No COPD: No CHF: No DVT: No Dementia: No Diabetes: Yes GI Disorders: Yes (ESOPHAGEAL VARICES,GASTRITIS) Disorders: No HTN: Yes Hypercholesterolemia: Yes Liver Disease: Yes (LIVER CELL CARCINOMA;CIRRHOSIS OF LIVER) Seizures: No Thyroid Disease: No - Surgical History Abdominal Surgery: No Appendectomy: No Cardiac Surgery: Yes (CARDIAC STENTS) Cholecystectomy: Yes Lung Surgery: No Neurologic Surgery: No Orthopedic Surgery: No - Suicide/Smoking/Psychosocial Hx Smoking Status: No Smoking History: Never smoked Have you smoked in the past 12 months: No Number of Cigarettes Smoked Daily: 0 Cigars Per Day: 0 Hx Alcohol Use: No Drug/Substance Use Hx: No Substance Use Type: None Hx Substance Use Treatment: No <EmilyJuarez - Last Filed: 09/30/17 15:39> <Judy Briceño - Last Filed: 09/30/17 16:07> - Past Medical History Allergies/Adverse Reactions: Allergies Allergy/AdvReac Type Severity Reaction Status Date / Time Iodinated Contrast- Oral and Allergy Verified 09/30/17 13:18 IV Dye [Iodinated Contrast Media - IV Dye] Home Medications: Ambulatory Orders Furosemide [Lasix] 40 mg PO BID 07/15/16 Insulin Detemir [Levemir Flextouch] 50 unit SQ HS 07/15/16 Multivitamins [Multivit ([facility] Formulary)] 1 tab PO DAILY 07/15/16 Nateglinide [Starlix (Nf) -] 60 mg PO TID 07/15/16 Metformin HCl 500 mg PO BID 08/09/16 Aspirin [ASA -] 81 mg PO DAILY tab.chew 10/30/16 Atorvastatin Ca [Lipitor] 10 mg PO HS #30 tab 12/11/16 Nadolol 20 mg PO DAILY #30 tab 12/11/16 Pantoprazole Sodium [Protonix] 40 mg PO DAILY #30 tab 12/11/16 Collagenase Clostridium Hist. [Santyl] 1 applic TP DAILY #90 oint...g. 05/02/17 Insulin Lispro [Humalog Kwikpen] 0 unit SQ TID 09/30/17 Lisinopril 20 mg PO DAILY 09/30/17 Ranolazine [Ranexa] 1,000 mg PO Q12H 09/30/17 Rifaximin [Xifaxan] 550 mg PO BID 09/30/17 Spironolactone [Aldactone -] 50 mg PO DAILY 09/30/17 Review of Systems - Review of Systems Able to Perform ROS?: Yes Comments:: 09/30/17 16:06 Constitutional: +Fever, fatigue. Pt denies Chills, weakness HEENT: Denies vision changes, sore throat Respiratory: +Nonproductive cough. Denies sob, hemoptysis Cardiac: Denies chest pain, palpitations, lightheadedness, leg swelling Abd/GI: Denies abd pain, nausea, vomiting, blood per rectum, melena, diarrhea : Denies dysuria, frequency, discharge Musculoskeletal: Denies back pain, joint swelling Skin: +Left foot wound with associated erythema, warm, and bloody discharge. Denies bruising. Neurological: +Left foot numbness(baseline). Denies headache, focal weakness, tingling, weakness Hematologic: Denies easy bruising, easy bleeding <Briceño,Giomilsy - Last Filed: 09/30/17 16:07> *Physical Exam - Vital Signs Last Vital Signs Temp Pulse Resp BP Pulse Ox 101.2 F H 63 20 126/80 100 09/30/17 13:10 09/30/17 13:10 09/30/17 13:10 09/30/17 13:10 09/30/17 13:10 <Juarez Diaz - Last Filed: 09/30/17 15:39> - Vital Signs Last Vital Signs Temp Pulse Resp BP Pulse Ox 102 F H 64 18 106/51 98 09/30/17 15:25 09/30/17 15:25 09/30/17 15:25 09/30/17 15:25 09/30/17 15:25 - Physical Exam Comments: 09/30/17 16:07 GENERAL: The patient is awake, alert, and fully oriented, Nontoxic - in no acute distress. HEAD: Normocephalic, atraumatic. EYES: extraocular movements intact, sclera anicteric, conjunctiva clear. ENT: Normal voice, Moist mucous membranes. NECK: Normal range of motion, supple LUNGS: Breath sounds equal, clear to auscultation bilaterally. No wheezes, no rhonchi, no rales. HEART: Regular rate and rhythm, normal S1 and S2 without murmur, rub or gallop. ABDOMEN: Soft, nontender, normoactive bowel sounds. No guarding, no rebound. . No CVA tenderness EXTREMITIES:unstaglbe ulcer onlateral aspect of Latera lL MCP, foot hot to touch , erythemadous, nontender (deminished sensation at abseline due to neuropathy) NEUROLOGICAL: No facial assymetry, Normal speech, PSYCH: Normal mood, normal affect. SKIN: Warm, Dry, normal turgor, <Briceño,Giomilsy - Last Filed: 09/30/17 16:07> Heart Score/ECG Review - ECG Impressions Comment:: 09/30/17 14:36 Twelve-lead EKG was performed and reviewed by me. There is normal sinus rhythm with a normal rate. Rate of 82 Incomplete right bundle-branch block Left anterior fascicular block Nonspecific ST wave changes <Emily,Juarez - Last Filed: 09/30/17 15:39> ED Treatment Course - LABORATORY CBC & Chemistry Diagram: 09/30/17 14:01 09/30/17 14:01 - RADIOLOGY Radiology Studies Ordered: Category Date Time Status CHEST X-RAY PORTABLE* [RAD] Stat Radiology 09/30/17 13:30 Ordered <Emily,Juarez - Last Filed: 09/30/17 15:39> - LABORATORY CBC & Chemistry Diagram: 09/30/17 14:01 09/30/17 14:01 - ADDITIONAL ORDERS Additional order review: Laboratory Results 09/30/17 09/30/17 09/30/17 14:01 14:01 14:01 PT with INR INR PTT (Actin FS) VBG pH 7.31 L POC VBG pCO2 47.6 POC VBG pO2 13.7 L* Mixed VBG HCO3 23.1 Sodium 133 L Potassium 4.9 Chloride 103 Carbon Dioxide 25 Anion Gap 5 L BUN 28 H Creatinine 1.6 H D Creat Clearance w eGFR 44.46 Random Glucose 72 L Lactic Acid 3.3 H* Calcium 8.6 Total Bilirubin 1.8 H D AST 34 ALT 23 D Alkaline Phosphatase 200 H D Troponin I Total Protein 8.3 H D Albumin 2.7 L 09/30/17 09/30/17 14:01 13:58 PT with INR 12.80 INR 1.13 PTT (Actin FS) 29.9 VBG pH POC VBG pCO2 POC VBG pO2 Mixed VBG HCO3 Sodium Potassium Chloride Carbon Dioxide Anion Gap BUN Creatinine Creat Clearance w eGFR Random Glucose Lactic Acid Calcium Total Bilirubin AST ALT Alkaline Phosphatase Troponin I 0.02 D Total Protein Albumin 09/30/17 14:01 RBC 2.81 L MCV 97.3 H MCHC 35.0 RDW 15.8 MPV 7.3 L D Neutrophils % 93.3 H D Lymphocytes % 2.2 L D Monocytes % 3.2 L Eosinophils % 0.7 Basophils % 0.6 - Medications Given in the ED: ED Medications Discontinued Medications Generic Name Dose Route Start Last Admin Trade Name Freq PRN Reason Stop Dose Admin Acetaminophen 1,000 mg 09/30/17 14:30 09/30/17 14:45 Ofirmev Injection - IVPB 09/30/17 14:31 1,000 mg ONCE ONE Administration Piperacillin Sod/Tazobactam 100 mls @ 200 mls/hr 09/30/17 14:30 09/30/17 14: 45 Sod 4.5 gm/ Dextrose IVPB 09/30/17 14:59 200 mls/hr ONCE ONE Administration Protocol Vancomycin HCl 1,000 mg/ 250 mls @ 250 mls/hr 09/30/17 14:31 09/30/17 15:10 Dextrose IVPB 09/30/17 15:30 250 mls/hr ONCE ONE Administration Protocol <Judy Briceño - Last Filed: 09/30/17 16:07> Medical Decision Making - Medical Decision Making 09/30/17 14:31 57y M hx of anemia, liver cell carcinoma, hepatic encephalopathy (patient is on a liver transplant list), hypertension, hypercholesterolemia, cerebrovascular accident, insulin-dependent diabetes mellitus, gastritis, esophageal varices, peripheral neuropathy, presents from the wound care clinic for worsening L lateral foot wound. Pt endorses fever since yesterday and malaise. Was evaluated in wound care and thought to be septic and sent to [facility] for evaluation. on exa mpt has necrotic wound unstable wound on the lateral L foot that is warm/ dusky case valeriy mckeon - recommends vanc/zosyn, noted febrile here, will give tylenol will admit for further mangaemnt sepsis orderest obtained. A portion of this note was documented by scribe services under my direction. I have reviewed the details of the note, within reason, and agree with the documentation with the following case summary and management plan written by me case dw dr. david - requests NPO, planned for surgery later today <Juarez Diaz - Last Filed: 09/30/17 15:39> - Medical Decision Making 09/30/17 15:31 First call placed to Dr. Flores at 15:32. Case discussed at this time. <Judy Briceño - Last Filed: 09/30/17 16:07> *DC/Admit/Observation/Transfer - Discharge Dispostion Decision to Admit order: Yes <Juarez Diaz - Last Filed: 09/30/17 15:39> - Attestations Scribe Attestion: 09/30/17 16:07 Documentation prepared by Judy Briceño, acting as medical education coordinator for Juarze Diaz MD. <Judy Briceño - Last Filed: 09/30/17 16:07> Diagnosis at time of Disposition: Diabetic ulcer of left foot Qualifiers: Diabetic foot ulcer location: other Diabetes mellitus type: type 1 Non- pressure ulcer stage: with other severity Qualified Code(s): E10.621 - Type 1 diabetes mellitus with foot ulcer - Discharge Dispostion Condition at time of disposition: Stable - Referrals Referrals: Roxanne Duran MD [Primary Care Provider] -
[2017-09-30 14:13] LABS: BASO % 0.6 % (0-2.0); EOS % 0.7 % (0-4.5); HEMATOCRIT 27.4 % (35.4-49); HEMOGLOBIN 9.6 GM/dL (11.7-16.9); LYMPH % 2.2 % (8-40); MCH 34.1 pg (25.7-33.7); MEAN CELL VOLUME 97.3 fl (80-96); MEAN PLT VOLUME 7.3 fl (7.5-11.1); MONO % 3.2 % (3.8-10.2); NEUT % 93.3 % (42.8-82.8); PLATELET COUNT 111 K/MM3 (134-434); RBC 2.81 M/mm3 (4.00-5.60); RDW 15.8 % (11.9-15.9); WHITE BLOOD COUNT 7.9 K/mm3 (4.0-10.0)
[2017-09-30 14:18] LABS: VENOUS PC02 47.6 mmHg (38-52); VENOUS PH 7.31 (7.32-7.42); VENOUS PO2 13.7 mmHg (28-48)
[2017-09-30 14:27] LABS: INR 1.13 (0.82-1.09); PROTHROMBIN TIME (PATIENT) 12.8 SEC (9.7-13.0)
[2017-09-30 14:30] LABS: ACTIVATED PTT 29.9 SECONDS (26.9-34.4)
[2017-09-30] MEDS ORDERED: ACETAMINOPHEN 1000 MG/100 ML VIAL (NON FORMULARY) IVPB ONE (14:30)
[2017-09-30] MEDS ORDERED: PIPERACILLIN/TAZOB 4.5 GM 4.5 GM in DEXTROSE 5%-WATER 100 ML IVPB ONE (14:30)
[2017-09-30] MEDS ORDERED: VANCOMYCIN 1,000 MG in DEXTROSE 5%-WATER - 250 ML IVPB ONE (14:31)
[2017-09-30] MEDS ORDERED: VANCOMYCIN 1 GRAM (PRE-DOCKED) 1,000 MG/250 ML BAG IVPB ONE (14:36)
[2017-09-30] MEDS ORDERED: ACETAMINOPHEN INJECTION 100 ML IVPB ONE (14:36)
[2017-09-30] MEDS ORDERED: PIPERACILLIN/TAZOB 4.5 GM 4.5 GM/100 ML BAG IVPB ONE (14:36)
[2017-09-30 14:39] LABS: ALBUMIN 2.7 g/dl (3.4-5.0); ALK PHOS 200 U/L (45-117); ANION GAP 5 (8-16); BILIRUBIN,TOTAL 1.8 mg/dL (0.2-1.0); BLOOD UREA NITROGEN 28 mg/dL (7-18); CALCIUM 8.6 mg/dL (8.5-10.1); CHLORIDE 103 mmol/L (98-107); CO2 25 mmol/L (21-32); CREATININE 1.6 mg/dL (0.7-1.3); GLUCOSE,RANDOM 72 mg/dL (74-106); POTASSIUM 4.9 mmol/L (3.5-5.1); SGOT/AST 34 U/L (15-37); SGPT/ALT 23 U/L (12-78); SODIUM 133 mmol/L (136-145); TOT PROT 8.3 g/dl (6.4-8.2)
[2017-09-30] MEDS ORDERED: SODIUM CHLORIDE 1,000 ML IV ONE (15:09)
[2017-09-30 16:51] LABS: URINE APPEARANCE CLEAR; URINE BILIRUBIN NEGATIVE (<2.0 mg/dL); URINE BLOOD NEGATIVE (NEGATIVE); URINE COLOR DKYELLOW; URINE GLUCOSE (UA) NEGATIVE (NEGATIVE); URINE KETONE NEGATIVE (NEGATIVE); URINE LEUK ESTERASE NEGATIVE (NEGATIVE); URINE NITRITE NEGATIVE (NEGATIVE); URINE PROTEIN NEGATIVE (NEGATIVE)
[2017-09-30] MEDS ORDERED: DEXTROSE 5%-NORMAL SALINE 1,000 ML IV SCH (17:00)
[2017-09-30] MEDS ORDERED: MIDAZOLAM HCL 2 MG/2 ML SINGLE DOSE VIAL ONE (17:33)
--- NOTE | 2017-09-30 17:36 | CON.ID ---
Consult Consult Specialty:: infectious diseases Reason for Consultation:: om of the left foot with severe cellulitis and dusky red foot now - History of Present Illness Chief Complaint: fever,pain and erythema of the left foot History of Present Illness: 57 year old male, accompanied by , with a significant past medical history of anemia, liver cell carcinoma, hepatic encephalopathy (patient is on a liver transplant list), hypertension, hyperlipidemia, CVA, IDDM, gastritis, esophageal varices admitted for left foot wound for about a month. reports patient was being followed at wound care for his foot wound, which has been gradually worsening over the past month. I had seen the paient last week in the wound care center and had advised him to get amputation.patients foot at [facility] was not cellulittis or erythema.and patient was stable with no fevers or pain in the foot. Now patient comes with increased erythema, warmth, and bloody discharge from wound site. and has left foot numbness at baseline. reports new onset of cough, fever, and fatigue since yesterday, but no chills, headache, or dizziness. Patient is septic and needs to got to the operating room as early as possible . the team is trying to get in tough with podiatry for taking the patient to the operating room. also patients foot looks gangrenous now - History Source History Provided By: Patient, Family Member Limitations to Obtaining History: No Limitations - Past Medical History [employer]: Yes: Peripheral Neuropathy Cardio/Vascular: Yes: CAD, HTN, Hyperlipdemia Gastrointestinal: Yes: Ascites, Esophageal Varices, Gastritis, GI Bleed, Hemorrhoids, Other Hepatobiliary: Yes: Cirrhosis (h/o esophageal varices s/p banding, related to HERNANDEZ), Cholelithiasis (s/p lap choly), Other (PORTAL VEIN PARTIAL THROMBOSIS, HCC treated with transhepatic heat ablations at [facility]) Renal/: Yes: Renal Inusuff Endocrine: Yes: Diabetes Mellitus - Past Surgical History Past Surgical History: Yes: Amputation (left toe #4, right toes #2,3), Cholecystectomy, Colonoscopy, Hernia Repair, Upper Endoscopy - Alcohol/Substance Use Hx Alcohol Use: No History of Substance Use: reports: None - Smoking History Smoking history: Never smoked Have you smoked in the past 12 months: No Aproximately how many cigarettes per day: 0 - Social History Usual Living Arrangement: With Spouse ADL: Independent 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 [email or web address] History of Recent Travel: No Home Medications - Allergies Allergies/Adverse Reactions: Allergies Allergy/AdvReac Type Severity Reaction Status Date / Time Iodinated Contrast- Oral and Allergy Verified 09/30/17 13:18 IV Dye [Iodinated Contrast Media - IV Dye] - Home Medications Home Medications: Ambulatory Orders Furosemide [Lasix] 40 mg PO BID 07/15/16 Insulin Detemir [Levemir Flextouch] 50 unit SQ HS 07/15/16 Multivitamins [Multivit ([facility] Formulary)] 1 tab PO DAILY 07/15/16 Nateglinide [Starlix (Nf) -] 60 mg PO TID 07/15/16 Metformin HCl 500 mg PO BID 08/09/16 Aspirin [ASA -] 81 mg PO DAILY tab.chew 10/30/16 Atorvastatin Ca [Lipitor] 10 mg PO HS #30 tab 12/11/16 Nadolol 20 mg PO DAILY #30 tab 12/11/16 Pantoprazole Sodium [Protonix] 40 mg PO DAILY #30 tab 12/11/16 Collagenase Clostridium Hist. [Santyl] 1 applic TP DAILY #90 oint...g. 05/02/17 Insulin Lispro [Humalog Kwikpen] 0 unit SQ TID 09/30/17 Lisinopril 20 mg PO DAILY 09/30/17 Ranolazine [Ranexa] 1,000 mg PO Q12H 09/30/17 Rifaximin [Xifaxan] 550 mg PO BID 09/30/17 Spironolactone [Aldactone -] 50 mg PO DAILY 09/30/17 Family Disease History - Family Disease History Family Disease History: Diabetes: Brother (alcoholic cirrhosis), Sister, CA: Mother (breast Ca), Other: Father ( from alcohol related complications) Review of Systems - Review of Systems Constitutional: reports: Chills, Fever Eyes: reports: No Symptoms HENT: reports: No Symptoms Neck: reports: No Symptoms Cardiovascular: reports: No Symptoms Respiratory: reports: No Symptoms Gastrointestinal: reports: No Symptoms Genitourinary: reports: No Symptoms Musculoskeletal: reports: Joint Pain, Other (numbness of the left foot) Integumentary: reports: Change in Color, Erythema, Wound Neurological: reports: No Symptoms Endocrine: reports: No Symptoms Hematology/Lymphatic: reports: No Symptoms Psychiatric: reports: No Symptoms Physical Exam Vital Signs: Vital Signs Temperature 101.8 F H 09/30/17 16:43 Pulse Rate 68 09/30/17 16:43 Respiratory Rate 18 09/30/17 16:43 Blood Pressure 104/54 09/30/17 16:43 O2 Sat by Pulse Oximetry (%) 98 09/30/17 16:43 Constitutional: Yes: Well Nourished, Calm, Moderate Distress Eyes: Yes: Conjunctiva Clear HENT: Yes: Atraumatic, Normocephalic Neck: Yes: Supple, Trachea Midline Cardiovascular: Yes: Regular Rate and Rhythm Respiratory: Yes: Regular, CTA Bilaterally Gastrointestinal: Yes: Normal Bowel Sounds, Soft Musculoskeletal: Yes: Other Extremities: Yes: Erythema Wound/Incision: Yes: Other (infected gangrenous 5th toe left foot Lateral 5th metatarsal head is necrotic and tender (+) ascending cellulitis onto dorsum of left foot) Neurological: Yes: Alert, Oriented Psychiatric: Yes: Alert, Oriented Labs: CBC, BMP 09/30/17 14:01 09/30/17 14:01 Imaging - Results Chest X-ray: Report Reviewed, Image Reviewed X-ray: Report Reviewed, Image Reviewed MRI: Report Reviewed, Image Reviewed Assessment/Plan Problem List - Problems (1) Controlled diabetes mellitus with diabetic peripheral angiopathy without gangrene, without long-term current use of insulin Code(s): E11.51 - TYPE 2 DIABETES W DIABETIC PERIPHERAL ANGIOPATH W/O GANGRENE (2) Diabetic ulcer of left foot Code(s): E11.621 - TYPE 2 DIABETES MELLITUS WITH FOOT ULCER; L97.529 - NON- PRESSURE CHRONIC ULCER OTH PRT LEFT FOOT W UNSP SEVERITY Qualifiers: Diabetic foot ulcer location: other Diabetes mellitus type: type 1 Non- pressure ulcer stage: with other severity Qualified Code(s): E10.621 - Type 1 diabetes mellitus with foot ulcer; L97.528 - Non-pressure chronic ulcer of other part of left foot with other specified severity; L97.528 - Non-pressure chronic ulcer of other part of left foot with other specified severity; L97.528 - Non-pressure chronic ulcer of other part of left foot with other specified severity; L97.528 - Non-pressure chronic ulcer of other part of left foot with other specified severity (3) Abdominal distension Code(s): R14.0 - ABDOMINAL DISTENSION (GASEOUS) (4) Abscess of external ear Code(s): H60.00 - ABSCESS OF EXTERNAL EAR, UNSPECIFIED EAR Qualifiers: Laterality: left Qualified Code(s): H60.02 - Abscess of left external ear (5) Anemia Code(s): D64.9 - ANEMIA, UNSPECIFIED (6) Ascites due to alcoholic cirrhosis Code(s): K70.31 - ALCOHOLIC CIRRHOSIS OF LIVER WITH ASCITES (7) Atherosclerosis Code(s): I70.90 - UNSPECIFIED ATHEROSCLEROSIS SHANEKA LE gangrene/PVD/Ischemia/Osteomylitis Hx of Hepatic Ca Anemia/Thrombocytopenia patient has received abx i d/w podiatry team patient being taken to the operating room plan continue abx send wound for cx and bone for cx continue abx post op close watch on the patient rest as per the team
[2017-09-30] MEDS ORDERED: LIDOCAINE HCL 2% (20ML MULTI-DOSE VIAL) NR ONE (17:39)
[2017-09-30] MEDS ORDERED: PROPOFOL 20 ML ONE (17:46)
--- NOTE | 2017-09-30 18:34 | PN ---
Progress Note (short form) - Note Progress Note: PREOP NOTE: Pt seen preop in holding area with present Podiatry consult was ordered for infected gangrenous 5th toe left foot Discussed case with vascular who saw pt in Wound care center and sent to [facility]:Palpable pedal pulses NVS decreased 5th toe not viable Lateral 5th metatarsal head is necrotic and tender (+) ascending cellulitis onto dorsum of left foot Impression Diabetic foot infection left foot with gangrene Plan: Consent obtained Discussed risks benefits alternatives as well as possible complications to pt and Pt to OR for 5th toe amputation / bone biopsy and culture 5th metatarsal left foot
--- NOTE | 2017-09-30 18:37 | OP ---
Operative Note - Note: Operative Date: 09/30/17 Pre-Operative Diagnosis: gangrene /diabetic foot infection left foot Operation: Amputation 5th toe with bone biopsy and culture left foot Surgeon: Norm Goncalves Anesthesia: MAC Specimens Removed: bone soft tissue left foot
[2017-09-30] MEDS: PIPERACILLIN/TAZOB 3.375 GM 3.375 GM in DEXTROSE 5%-WATER - 50 ML IVPB SCH (19:00)
[2017-09-30] MEDS: SODIUM CHLORIDE 1,000 ML IV SCH (19:30)
[2017-09-30] MEDS ORDERED: INSULIN (NOVOLOG) ASPART 100 UNITS/ML 10ML VIAL ONE (20:30)
[2017-09-30] MEDS ORDERED: RANOLAZINE E.R. 500 MG TABLET (FP) ONE (20:31)
[2017-09-30] MEDS: FUROSEMIDE 40 MG TABLET (FP) PO SCH (21:03)
[2017-09-30] MEDS: RIFAXIMIN 550 MG TABLET (UD) PO SCH (21:34)
[2017-09-30] MEDS: ATORVASTATIN CA 10 MG TABLET (FP) PO SCH (21:35)
[2017-09-30] MEDS: RANOLAZINE E.R. 1,000 MG TABLET (FP) PO SCH (21:36)
[2017-09-30] MEDS: HEPARIN NA (PORCINE) 5,000 UNITS/ML 1ML VIAL SQ SCH (21:36)
[2017-09-30] MEDS ORDERED: INSULIN SLIDING SCALE (NOVOLOG) 1 VIAL SQ SCH (22:00)
[2017-09-30] MEDS ORDERED: PIPERACILLIN/TAZOBACTAM 3.375 GM VIAL IVPB ONE (22:54)
[2017-09-30] MEDS ORDERED: DEXTROSE 5%-WATER - 50 ML IVPB ONE (22:55)
[2017-09-30 23:04] LABS: INR 1.27 (0.82-1.09); PROTHROMBIN TIME (PATIENT) 14.4 SEC (9.7-13.0)
[2017-09-30 23:51] VITALS: BMI 35.2
--- NOTE | 2017-10-01 00:09 | CONSULT ---
Consult Consult Specialty:: endocrine Referred by:: dr.annabi garcia Reason for Consultation:: diabetes mellitus uncontrolled - History of Present Illness Chief Complaint: high sugars / foot infection History of Present Illness: 57 year old male,, with a significant past medical history of diabetes mellitus ,anemia, liver cell carcinoma, hepatic encephalopathy (patient is on a liver transplant list), hypertension, hyperlipidemia, CVA, gastritis, esophageal varices who presents to the emergency department for left foot wound for about a month. patient states the left foot wound has been gradually worsening over the past month. reports increased erythema, warmth, and bloody discharge from wound site. She states patient has left foot numbness at baseline. 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: Peripheral Neuropathy Cardio/Vascular: Yes: CAD, HTN, Hyperlipdemia Gastrointestinal: Yes: Ascites, Esophageal Varices, Gastritis, GI Bleed, Hemorrhoids, Other Hepatobiliary: Yes: Cirrhosis (h/o esophageal varices s/p banding, related to HERNANDEZ), Cholelithiasis (s/p lap choly), Other (PORTAL VEIN PARTIAL THROMBOSIS, HCC treated with transhepatic heat ablations at [facility]) Renal/: Yes: Renal Inusuff Endocrine: Yes: Diabetes Mellitus - Past Surgical History Past Surgical History: Yes: Amputation (left toe #4, right toes #2,3), Cholecystectomy, Colonoscopy, Hernia Repair, Upper Endoscopy - Alcohol/Substance Use Hx Alcohol Use: No History of Substance Use: reports: None - Smoking History Smoking history: Never smoked Have you smoked in the past 12 months: No Aproximately how many cigarettes per day: 0 - Social History Usual Living Arrangement: With Spouse ADL: Independent 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 [employer] History of Recent Travel: No Home Medications - Allergies Allergies/Adverse Reactions: Allergies Allergy/AdvReac Type Severity Reaction Status Date / Time Iodinated Contrast- Oral and Allergy Verified 09/30/17 13:18 IV Dye [Iodinated Contrast Media - IV Dye] - Home Medications Home Medications: Ambulatory Orders Furosemide [Lasix] 40 mg PO BID 07/15/16 Insulin Detemir [Levemir Flextouch] 50 unit SQ HS 07/15/16 Multivitamins [Multivit ([facility] Formulary)] 1 tab PO DAILY 07/15/16 Nateglinide [Starlix (Nf) -] 60 mg PO TID 07/15/16 Metformin HCl 500 mg PO BID 08/09/16 Aspirin [ASA -] 81 mg PO DAILY tab.chew 10/30/16 Atorvastatin Ca [Lipitor] 10 mg PO HS #30 tab 12/11/16 Nadolol 20 mg PO DAILY #30 tab 12/11/16 Pantoprazole Sodium [Protonix] 40 mg PO DAILY #30 tab 12/11/16 Collagenase Clostridium Hist. [Santyl] 1 applic TP DAILY #90 oint...g. 05/02/17 Insulin Lispro [Humalog Kwikpen] 0 unit SQ TID 09/30/17 Lisinopril 20 mg PO DAILY 09/30/17 Ranolazine [Ranexa] 1,000 mg PO Q12H 09/30/17 Rifaximin [Xifaxan] 550 mg PO BID 09/30/17 Spironolactone [Aldactone -] 50 mg PO DAILY 09/30/17 Family Disease History - Family Disease History Family Disease History: Diabetes: Brother (alcoholic cirrhosis), Sister, CA: Mother (breast Ca), Other: Father ( from alcohol related complications) Review of Systems - Review of Systems Constitutional: reports: Lethargy, Weakness Eyes: reports: Blurred Vision HENT: reports: No Symptoms Neck: reports: No Symptoms Cardiovascular: reports: No Symptoms Respiratory: reports: No Symptoms Gastrointestinal: reports: Bloating, Constipation Genitourinary: reports: No Symptoms Breasts: reports: No Symptoms Reported Musculoskeletal: reports: Extremity Pain, Muscle Pain, Muscle Cramps, Muscle Weakness Integumentary: reports: No Symptoms Neurological: reports: Numbness, Weakness Physical Exam Vital Signs: Vital Signs Temperature 98.2 F 09/30/17 23:43 Pulse Rate 62 09/30/17 23:43 Respiratory Rate 20 09/30/17 23:43 Blood Pressure 103/51 09/30/17 23:43 O2 Sat by Pulse Oximetry (%) 98 09/30/17 20:30 Constitutional: Yes: Anxious Eyes: Yes: EOM Intact HENT: Yes: Normocephalic Neck: Yes: Trachea Midline Cardiovascular: Yes: Regular Rate and Rhythm Respiratory: Yes: CTA Bilaterally Gastrointestinal: Yes: Normal Bowel Sounds ...Rectal Exam: Yes: Deferred Renal/: Yes: WNL Breast(s): Yes: WNL Musculoskeletal: Yes: Muscle Pain, Muscle Weakness Extremities: Yes: WNL Edema: LLE: 1+, RLE: 1+ Integumentary: Yes: WNL Wound/Incision: Yes: Dressing Dry and Intact Neurological: Yes: Alert, Oriented Labs: CBC, BMP 09/30/17 14:01 09/30/17 14:01 Problem List - Problems (1) Controlled diabetes mellitus with diabetic peripheral angiopathy without gangrene, without long-term current use of insulin Code(s): E11.51 - TYPE 2 DIABETES W DIABETIC PERIPHERAL ANGIOPATH W/O GANGRENE (2) Diabetic ulcer of left foot Code(s): E11.621 - TYPE 2 DIABETES MELLITUS WITH FOOT ULCER; L97.529 - NON- PRESSURE CHRONIC ULCER OTH PRT LEFT FOOT W UNSP SEVERITY Qualifiers: Diabetic foot ulcer location: other Diabetes mellitus type: type 1 Non- pressure ulcer stage: with other severity Qualified Code(s): E10.621 - Type 1 diabetes mellitus with foot ulcer; L97.528 - Non-pressure chronic ulcer of other part of left foot with other specified severity; L97.528 - Non-pressure chronic ulcer of other part of left foot with other specified severity; L97.528 - Non-pressure chronic ulcer of other part of left foot with other specified severity; L97.528 - Non-pressure chronic ulcer of other part of left foot with other specified severity (3) Abdominal distension Code(s): R14.0 - ABDOMINAL DISTENSION (GASEOUS) (4) Abscess of external ear Code(s): H60.00 - ABSCESS OF EXTERNAL EAR, UNSPECIFIED EAR Qualifiers: Laterality: left Qualified Code(s): H60.02 - Abscess of left external ear (5) Anemia Code(s): D64.9 - ANEMIA, UNSPECIFIED (6) Ascites due to alcoholic cirrhosis Code(s): K70.31 - ALCOHOLIC CIRRHOSIS OF LIVER WITH ASCITES (7) Atherosclerosis Code(s): I70.90 - UNSPECIFIED ATHEROSCLEROSIS Assessment/Plan Current Active Problems Diabetic ulcer of left foot (Acute) diabetes mellitus hyperglycemia gangrene foot diabetic infectionleft foot htn ashd ckd diabetic nephropathy Abnormal Lab Results 09/30/17 09/30/17 09/30/17 14:01 14:01 14:01 RBC 2.81 L Hgb 9.6 L Hct 27.4 L MCV 97.3 H MCH 34.1 H Plt Count 111 L D MPV 7.3 L D Neutrophils % 93.3 H D Lymphocytes % 2.2 L D Monocytes % 3.2 L VBG pH 7.31 L POC VBG pO2 13.7 L* Sodium 133 L Anion Gap 5 L BUN 28 H Creatinine 1.6 H D Random Glucose 72 L Lactic Acid Total Bilirubin 1.8 H D Alkaline Phosphatase 200 H D Total Protein 8.3 H D Albumin 2.7 L 09/30/17 14:01 RBC Hgb Hct MCV MCH Plt Count MPV Neutrophils % Lymphocytes % Monocytes % VBG pH POC VBG pO2 Sodium Anion Gap BUN Creatinine Random Glucose Lactic Acid 3.3 H* Total Bilirubin Alkaline Phosphatase Total Protein Albumin Laboratory Results - last 24 hr 09/30/17 09/30/17 09/30/17 13:58 14:01 14:01 WBC 7.9 RBC 2.81 L Hgb 9.6 L Hct 27.4 L MCV 97.3 H MCH 34.1 H MCHC 35.0 RDW 15.8 Plt Count 111 L D MPV 7.3 L D Neutrophils % 93.3 H D Lymphocytes % 2.2 L D Monocytes % 3.2 L Eosinophils % 0.7 Basophils % 0.6 PT with INR 12.80 INR 1.13 PTT (Actin FS) 29.9 VBG pH POC VBG pCO2 POC VBG pO2 Mixed VBG HCO3 Sodium Potassium Chloride Carbon Dioxide Anion Gap BUN Creatinine Creat Clearance w eGFR POC Glucometer Random Glucose Lactic Acid Calcium Total Bilirubin AST ALT Alkaline Phosphatase Troponin I 0.02 D Total Protein Albumin Urine Color Urine Appearance Urine pH Ur Specific [place] Urine Protein Urine Glucose (UA) Urine Ketones Urine Blood Urine Nitrite Urine Bilirubin Urine Urobilinogen Ur Leukocyte Esterase 09/30/17 09/30/17 09/30/17 14:01 14:01 14:01 WBC RBC Hgb Hct MCV MCH MCHC RDW Plt Count MPV Neutrophils % Lymphocytes % Monocytes % Eosinophils % Basophils % PT with INR INR PTT (Actin FS) VBG pH 7.31 L POC VBG pCO2 47.6 POC VBG pO2 13.7 L* Mixed VBG HCO3 23.1 Sodium 133 L Potassium 4.9 Chloride 103 Carbon Dioxide 25 Anion Gap 5 L BUN 28 H Creatinine 1.6 H D Creat Clearance w eGFR 44.46 POC Glucometer Random Glucose 72 L Lactic Acid 3.3 H* Calcium 8.6 Total Bilirubin 1.8 H D AST 34 ALT 23 D Alkaline Phosphatase 200 H D Troponin I Total Protein 8.3 H D Albumin 2.7 L Urine Color Urine Appearance Urine pH Ur Specific [place] Urine Protein Urine Glucose (UA) Urine Ketones Urine Blood Urine Nitrite Urine Bilirubin Urine Urobilinogen Ur Leukocyte Esterase 09/30/17 09/30/17 09/30/17 16:29 16:39 21:08 WBC RBC Hgb Hct MCV MCH MCHC RDW Plt Count MPV Neutrophils % Lymphocytes % Monocytes % Eosinophils % Basophils % PT with INR INR PTT (Actin FS) VBG pH POC VBG pCO2 POC VBG pO2 Mixed VBG HCO3 Sodium Potassium Chloride Carbon Dioxide Anion Gap BUN Creatinine Creat Clearance w eGFR POC Glucometer 217 Random Glucose Lactic Acid 2.0 Calcium Total Bilirubin AST ALT Alkaline Phosphatase Troponin I Total Protein Albumin Urine Color Dkyellow Urine Appearance Clear Urine pH 5.0 Ur Specific [place] 1.016 Urine Protein Negative Urine Glucose (UA) Negative Urine Ketones Negative Urine Blood Negative Urine Nitrite Negative Urine Bilirubin Negative Urine Urobilinogen 2.0 Ur Leukocyte Esterase Negative plan: bgm achs novolog insulin doses levemir 27 units am levemir 15 units hs ck [id number]
[2017-10-01] MEDS: SODIUM CHLORIDE 1,000 ML IV SCH ×2 (00:45→12:07)
[2017-10-01] MEDS: PIPERACILLIN/TAZOB 3.375 GM 3.375 GM in DEXTROSE 5%-WATER - 50 ML IVPB SCH ×3 (01:00→17:50)
[2017-10-01] MEDS ORDERED: INSULIN (LEVEMIR) 100 UNITS/ML UNITS SQ ONE (04:35)
[2017-10-01] MEDS ORDERED: ACETAMINOPHEN 325 MG TABLET (FP) PO ONE (06:08)
[2017-10-01] MEDS: FUROSEMIDE 40 MG TABLET (FP) PO SCH (06:10)
[2017-10-01] MEDS: HEPARIN NA (PORCINE) 5,000 UNITS/ML 1ML VIAL SQ SCH ×3 (06:11→22:23)
[2017-10-01] MEDS: INSULIN SLIDING SCALE (NOVOLOG) 1 VIAL SQ SCH ×4 (06:14→21:34)
[2017-10-01] MEDS: INSULIN (LEVEMIR) 100 UNITS/ML UNITS SQ SCH ×2 (06:42→21:32)
[2017-10-01 07:21] LABS: HEMATOCRIT 22.5 % (35.4-49); MCH 34.6 pg (25.7-33.7); MCHC 35.6 g/dl (32.0-35.9); MEAN CELL VOLUME 97.2 fl (80-96); MEAN PLT VOLUME 8.1 fl (7.5-11.1); PLATELET COUNT 74 K/MM3 (134-434); RBC 2.32 M/mm3 (4.00-5.60); RDW 15.6 % (11.9-15.9); WHITE BLOOD COUNT 7.1 K/mm3 (4.0-10.0)
[2017-10-01 07:59] LABS: INR 1.27 (0.82-1.09); PROTHROMBIN TIME (PATIENT) 14.3 SEC (9.7-13.0)
[2017-10-01 08:17] LABS: ALBUMIN 2.2 g/dl (3.4-5.0); ANION GAP 7 (8-16); BILIRUBIN,TOTAL 1.7 mg/dL (0.2-1.0); BLOOD UREA NITROGEN 34 mg/dL (7-18); CALCIUM 7.5 mg/dL (8.5-10.1); CHLORIDE 106 mmol/L (98-107); CO2 22 mmol/L (21-32); CREATININE 1.9 mg/dL (0.7-1.3); GLUCOSE,RANDOM 165 mg/dL (74-106); POTASSIUM 4.9 mmol/L (3.5-5.1); SGOT/AST 34 U/L (15-37); SGPT/ALT 19 U/L (12-78); SODIUM 135 mmol/L (136-145); TOT PROT 6.8 g/dl (6.4-8.2)
[2017-10-01 08:18] LABS: ALK PHOS 163 U/L (45-117)
--- NOTE | 2017-10-01 09:48 | PN ---
Progress Note (short form) - Note Progress Note: POD #1 - s/p amputation of toe left foot under MAC. VSS. Pt. doing well, resting comfortably in bed. No complaints. No apparent anesthetic complications noted. Continue current care.
[2017-10-01 09:53] LABS: ANISOCYTOSIS 1+; PLATELET ESTIMATE DECREASED
[2017-10-01] MEDS ORDERED: RANOLAZINE E.R. 500 MG TABLET (FP) ONE (09:53)
[2017-10-01] MEDS ORDERED: PT OWN MED DRAWER 7, Y5N ONE ×3 (09:53→21:06)
[2017-10-01] MEDS ORDERED: PIPERACILLIN/TAZOBACTAM 3.375 GM VIAL IVPB ONE ×2 (09:54→17:48)
[2017-10-01] MEDS ORDERED: DEXTROSE 5%-WATER - 50 ML IVPB ONE ×2 (09:54→17:48)
[2017-10-01] MEDS ORDERED: SPIRONOLACTONE 25 MG TABLET (FP) PO SCH (10:00)
[2017-10-01] MEDS ORDERED: LISINOPRIL 20 MG TABLET (FP) PO SCH (10:00)
[2017-10-01] MEDS: NADOLOL 20 MG TABLET (FP) PO SCH (10:04)
[2017-10-01] MEDS: MULTIVITAMINS (DAILY MVI) TABLET (FP) PO SCH (10:04)
[2017-10-01] MEDS: ASPIRIN 81 MG CHEWABLE TABLETS PO SCH (10:04)
[2017-10-01] MEDS: PANTOPRAZOLE 40 MG TABLET (FP) PO SCH (10:04)
[2017-10-01] MEDS: RANOLAZINE E.R. 1,000 MG TABLET (FP) PO SCH ×2 (10:05→21:33)
[2017-10-01] MEDS: RIFAXIMIN 550 MG TABLET (UD) PO SCH ×2 (10:05→21:34)
--- NOTE | 2017-10-01 10:07 | HP ---
Admitting History and Physical - Admission History of Present Illness: 57 year old male, accompanied by , with a significant past medical history of anemia, liver cell carcinoma, hepatic encephalopathy (patient is on a liver transplant list), hypertension, hyperlipidemia, CVA, IDDM, gastritis, esophageal varices who presents to the emergency department for left foot wound for about a month. reports patient was being followed at wound care for his foot wound, which has been gradually worsening over the past month. reports increased erythema, warmth, and bloody discharge from wound site. She states patient has left foot numbness at baseline. reports new onset of cough, fever, and fatigue since yesterday, but no chills, headache, or dizziness. Per Dr. Mckeon, patients ID doctor, he was concerned patient was septic and was sent to the ED today for further evaluation and possible debridement. reports patients last meal was at 09:00 this morning. Patient denies any abdominal pain, nausea, vomiting, diarrhea, or constipation. 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: Peripheral Neuropathy Cardiovascular: Yes: CAD, HTN, Hyperlipdemia Gastrointestinal: Yes: Ascites, Esophageal Varices, Gastritis, GI Bleed, Hemorrhoids, Other Hepatobiliary: Yes: Cirrhosis (h/o esophageal varices s/p banding, related to HERNANDEZ), Cholelithiasis (s/p lap choly), Other (PORTAL VEIN PARTIAL THROMBOSIS, HCC treated with transhepatic heat ablations at [facility]) Renal/: Yes: Renal Inusuff Heme/Onc: Yes: Anemia, Thrombocytopenia Endocrine: Yes: Diabetes Mellitus - Past Surgical History Past Surgical History: Yes: Amputation (left toe #4, right toes #2,3), Cholecystectomy, Colonoscopy, Hernia Repair, Upper Endoscopy - Smoking History Smoking history: Never smoked Have you smoked in the past 12 months: No Aproximately how many cigarettes per day: 0 - Alcohol/Substance Use Hx Alcohol Use: No History of Substance Use: reports: None - Social History ADL: Independent 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 [employer] History of Recent Travel: No Home Medications - Allergies Allergies/Adverse Reactions: Allergies Allergy/AdvReac Type Severity Reaction Status Date / Time Iodinated Contrast- Oral and Allergy Verified 09/30/17 13:18 IV Dye [Iodinated Contrast Media - IV Dye] - Home Medications Home Medications: Ambulatory Orders Furosemide [Lasix] 40 mg PO BID 07/15/16 Insulin Detemir [Levemir Flextouch] 50 unit SQ HS 07/15/16 Multivitamins [Multivit ([facility] Formulary)] 1 tab PO DAILY 07/15/16 Nateglinide [Starlix (Nf) -] 60 mg PO TID 07/15/16 Metformin HCl 500 mg PO BID 08/09/16 Aspirin [ASA -] 81 mg PO DAILY tab.chew 10/30/16 Atorvastatin Ca [Lipitor] 10 mg PO HS #30 tab 12/11/16 Nadolol 20 mg PO DAILY #30 tab 12/11/16 Pantoprazole Sodium [Protonix] 40 mg PO DAILY #30 tab 12/11/16 Collagenase Clostridium Hist. [Santyl] 1 applic TP DAILY #90 oint...g. 05/02/17 Insulin Lispro [Humalog Kwikpen] 0 unit SQ TID 09/30/17 Lisinopril 20 mg PO DAILY 09/30/17 Ranolazine [Ranexa] 1,000 mg PO Q12H 09/30/17 Rifaximin [Xifaxan] 550 mg PO BID 09/30/17 Spironolactone [Aldactone -] 50 mg PO DAILY 09/30/17 Family Disease History - Family Disease History Family Disease History: Diabetes: Brother (alcoholic cirrhosis), Sister, CA: Mother (breast Ca), Other: Father ( from alcohol related complications) Review of Systems - Review of Systems Constitutional: reports: Fever Musculoskeletal: reports: Extremity Pain Physical Examination Vital Signs: Vital Signs Temperature 99.6 F 10/01/17 07:21 Pulse Rate 76 10/01/17 06:11 Respiratory Rate 20 10/01/17 06:11 Blood Pressure 143/58 10/01/17 06:11 O2 Sat by Pulse Oximetry (%) 98 09/30/17 22:45 Cardiovascular: Yes: S1, S2 Respiratory: Yes: Regular, CTA Bilaterally, Diminished Gastrointestinal: Yes: Normal Bowel Sounds, Soft Wound/Incision: Yes: Dressing Dry and Intact (-POSTOP) Labs: CBC, BMP 10/01/17 06:00 10/01/17 06:00 Problem List - Problems (1) Sepsis Assessment/Plan: -IV ABX PER ID -IVF -CULTURES -S/P DEBRIDEMENT Code(s): A41.9 - SEPSIS, UNSPECIFIED ORGANISM (2) Diabetic ulcer of left foot Assessment/Plan: Operative Date: 09/30/17 Pre-Operative Diagnosis: gangrene /diabetic foot infection left foot Operation: Amputation 5th toe with bone biopsy and culture left foot Surgeon: Norm Goncalves Code(s): E11.621 - TYPE 2 DIABETES MELLITUS WITH FOOT ULCER; L97.529 - NON- PRESSURE CHRONIC ULCER OTH PRT LEFT FOOT W UNSP SEVERITY Qualifiers: Diabetic foot ulcer location: other Diabetes mellitus type: type 1 Non- pressure ulcer stage: with other severity Qualified Code(s): E10.621 - Type 1 diabetes mellitus with foot ulcer; L97.528 - Non-pressure chronic ulcer of other part of left foot with other specified severity; L97.528 - Non-pressure chronic ulcer of other part of left foot with other specified severity; L97.528 - Non-pressure chronic ulcer of other part of left foot with other specified severity; L97.528 - Non-pressure chronic ulcer of other part of left foot with other specified severity (3) Diabetes mellitus, insulin dependent (IDDM), uncontrolled Assessment/Plan: BGM WITH COVERAGE Code(s): E10.65 - TYPE 1 DIABETES MELLITUS WITH HYPERGLYCEMIA (4) HCC (hepatocellular carcinoma) Code(s): C22.0 - LIVER CELL CARCINOMA (5) Anemia Assessment/Plan: TRANSFUSE ONE UNIT Code(s): D64.9 - ANEMIA, UNSPECIFIED
[2017-10-01] MEDS: ACETAMINOPHEN 325 MG TABLET (FP) PO PRN (10:31)
[2017-10-01] MEDS ORDERED: SODIUM CHLORIDE 1,000 ML IV SCH (11:30)
--- NOTE | 2017-10-01 11:50 | CONSULT ---
Consult - text type - Consultation Consultation Note: Renal Consult for SHANEKA This is a 57 year old gentleman with PMhx of Hepatic Ca s/p radiation wit stigmata of liver disease , DM, Anemia, Hypertertension, HLD, CVA, Gastritis presented with infected left foot now s/p amputation with SHANEKA. Pt reports having the infection on his toe x 1 week. Is on ACEi and BID Lasix at home. Does report using Advil once daily for the past week. Denies any dark urine or any change in urine output. No LE swelling. No skin rash. No N/V/D. + chills at home but no fevers. Denies any obstructive symptoms. PMhx: as above Allergies: Contrast Dye Family Hx: NC Social Hx: No T/A/D ROS: as per HPI Home Medications Medication Instructions Recorded Furosemide [Lasix] 40 mg PO BID 07/15/16 Insulin Detemir [Levemir Flextouch] 50 unit SQ HS 07/15/16 Multivitamins [Multivit ([facility] 1 tab PO DAILY 07/15/16 Formulary)] Nateglinide [Starlix (Nf) -] 60 mg PO TID 07/15/16 Metformin HCl 500 mg PO BID 08/09/16 Aspirin [ASA -] 81 mg PO DAILY tab.chew 10/30/16 Atorvastatin Ca [Lipitor] 10 mg PO HS #30 tab 12/11/16 Nadolol 20 mg PO DAILY #30 tab 12/11/16 Pantoprazole Sodium [Protonix] 40 mg PO DAILY #30 tab 12/11/16 Collagenase Clostridium Hist. 1 applic TP DAILY #90 oint...g. 05/02/17 [Santyl] Insulin Lispro [Humalog Kwikpen] 0 unit SQ TID 09/30/17 Lisinopril 20 mg PO DAILY 09/30/17 Ranolazine [Ranexa] 1,000 mg PO Q12H 09/30/17 Rifaximin [Xifaxan] 550 mg PO BID 09/30/17 Spironolactone [Aldactone -] 50 mg PO DAILY 09/30/17 Vital Signs Temperature 99.5 F 10/01/17 11:07 Pulse Rate 59 L 10/01/17 11:07 Respiratory Rate 20 10/01/17 10:15 Blood Pressure 98/49 10/01/17 11:07 O2 Sat by Pulse Oximetry (%) 98 10/01/17 09:00 Intake & Output 09/28/17 09/29/17 09/30/17 10/01/17 23:59 23:59 23:59 23:59 Intake Total 650 950 Output Total 200 500 Balance 450 450 Weight 111.13 kg NAD awake and alert MMM, NO JVD neck supple RRR, No M/R CTA, no rales or wheeze soft NT/ND no LE edema, clubbing or cyanosis left foot in dressing no bladder distension CBC, BMP 10/01/17 06:00 10/01/17 06:00 Current Medications Acetaminophen (Tylenol -) 650 mg PO Q4H PRN PRN Reason: FEVER Last Admin: 10/01/17 10:31 Dose: 650 mg Aspirin (Asa -) 81 mg PO DAILY [facility] Last Admin: 10/01/17 10:04 Dose: 81 mg Atorvastatin Calcium (Lipitor -) 10 mg PO HS [facility] Last Admin: 09/30/17 21:35 Dose: 10 mg Collagenase (Santyl -) 1 applic TP DAILY [facility] Fentanyl (Sublimaze Injection -) 25 mcg IVPUSH [id number] PRN PRN Reason: PAIN-PACU ORDER X 4 DOSES ONLY Heparin Sodium (Porcine) (Heparin -) 5,000 unit SQ TID [facility] Last Admin: 10/01/17 06:11 Dose: 5,000 unit Piperacillin Sod/Tazobactam (Sod 3.375 gm/ Dextrose) 50 mls @ 100 mls/hr IVPB Q8H-IV J CARLOS PRN Reason: Protocol Last Admin: 10/01/17 10:05 Dose: 100 mls/hr Sodium Chloride (Normal Saline -) 1,000 mls @ 150 mls/hr IV ASDIR [facility] Last Admin: 10/01/17 10:15 Dose: 150 mls/hr Sodium Chloride (Normal Saline -) 1,000 mls @ 125 mls/hr IV ASDIR [facility] Insulin Aspart (Novolog Vial Sliding Scale -) 1 vial SQ ACHS J CARLOS PRN Reason: Protocol Last Admin: 10/01/17 11:28 Dose: 3 units Insulin Detemir (Levemir Vial) 27 units SQ AM [facility] Last Admin: 10/01/17 06:42 Dose: 27 units Insulin Detemir (Levemir Vial) 15 units SQ HS [facility] Midodrine (Proamatine -) 5 mg PO TID-MID J CARLOS Multivitamins/Minerals/Vitamin C (Tab-A-Vit -) 1 tab PO DAILY [facility] Last Admin: 10/01/17 10:04 Dose: 1 tab Nadolol (Corgard -) 20 mg PO DAILY [facility] Last Admin: 10/01/17 10:04 Dose: Not Given Pantoprazole Sodium (Protonix -) 40 mg PO DAILY [facility] Last Admin: 10/01/17 10:04 Dose: 40 mg Ranolazine (Ranexa -) 1,000 mg PO BID [facility] Last Admin: 10/01/17 10:05 Dose: 1,000 mg Rifaximin (Xifaxan -) 550 mg PO BID [facility] Last Admin: 10/01/17 10:05 Dose: 550 mg 57 year old gentleman with PMhx of Hepatic Ca s/p radiation wit stigmata of liver disease , DM, Anemia, Hypertertension, HLD, CVA, Gastritis presented with infected left foot now s/p amputation with SHANEKA. #SHANEKA (baseline Cr 1.3) #LE gangrene/PVD/Ischemia/Osteomylitis #Hx of Hepatic Ca #hx of hypertension, now hypotensive #Anemia/Thrombocytopenia Etiology of SHANEKA likely due to renal hypoprofusion in setting of acute infection vs. ATN from NSAID + JOSI hold antihypertensive and diuretics for now Trial of IVF, if no response will try albumin in 24 hours start Midodrine 5mg TID check Urine studies for FEUrea, FeNa, UPCR Check US of the Abd careful monitoring of volume status avoid nsaids no acute indication for SHOP LEAD dose all meds for CrCl less then 30 THank you Will follow Anton Faith DO
--- NOTE | 2017-10-01 12:21 | PN ---
Progress Note, Physician History of Present Illness: patient post op from amputation still with fevers but says he is feeling better no specific complaints - Current Medication List Current Medications: Active Medications Acetaminophen (Tylenol -) 650 mg PO Q4H PRN PRN Reason: FEVER Last Admin: 10/01/17 10:31 Dose: 650 mg Aspirin (Asa -) 81 mg PO DAILY [facility] Last Admin: 10/01/17 10:04 Dose: 81 mg Atorvastatin Calcium (Lipitor -) 10 mg PO HS [facility] Last Admin: 09/30/17 21:35 Dose: 10 mg Collagenase (Santyl -) 1 applic TP DAILY [facility] Fentanyl (Sublimaze Injection -) 25 mcg IVPUSH [id number] PRN PRN Reason: PAIN-PACU ORDER X 4 DOSES ONLY Heparin Sodium (Porcine) (Heparin -) 5,000 unit SQ TID [facility] Last Admin: 10/01/17 06:11 Dose: 5,000 unit Piperacillin Sod/Tazobactam (Sod 3.375 gm/ Dextrose) 50 mls @ 100 mls/hr IVPB Q8H-IV J CARLOS PRN Reason: Protocol Last Admin: 10/01/17 10:05 Dose: 100 mls/hr Sodium Chloride (Normal Saline -) 1,000 mls @ 150 mls/hr IV ASDIR [facility] Last Admin: 10/01/17 10:15 Dose: 150 mls/hr Sodium Chloride (Normal Saline -) 1,000 mls @ 125 mls/hr IV ASDIR [facility] Insulin Aspart (Novolog Vial Sliding Scale -) 1 vial SQ ACHS [facility] PRN Reason: Protocol Last Admin: 10/01/17 11:28 Dose: 3 units Insulin Detemir (Levemir Vial) 27 units SQ AM [facility] Last Admin: 10/01/17 06:42 Dose: 27 units Insulin Detemir (Levemir Vial) 15 units SQ HS [facility] Midodrine (Proamatine -) 5 mg PO TID-MID [facility] Multivitamins/Minerals/Vitamin C (Tab-A-Vit -) 1 tab PO DAILY [facility] Last Admin: 10/01/17 10:04 Dose: 1 tab Nadolol (Corgard -) 20 mg PO DAILY [facility] Last Admin: 10/01/17 10:04 Dose: Not Given Pantoprazole Sodium (Protonix -) 40 mg PO DAILY [facility] Last Admin: 10/01/17 10:04 Dose: 40 mg Ranolazine (Ranexa -) 1,000 mg PO BID [facility] Last Admin: 10/01/17 10:05 Dose: 1,000 mg Rifaximin (Xifaxan -) 550 mg PO BID [facility] Last Admin: 10/01/17 10:05 Dose: 550 mg - Objective Vital Signs: Vital Signs Temperature 99.5 F 10/01/17 11:07 Pulse Rate 59 L 10/01/17 11:07 Respiratory Rate 20 10/01/17 10:15 Blood Pressure 98/49 10/01/17 11:07 O2 Sat by Pulse Oximetry (%) 98 10/01/17 09:00 Constitutional: Yes: No Distress, Calm Cardiovascular: Yes: Regular Rate and Rhythm Respiratory: Yes: Regular, CTA Bilaterally Gastrointestinal: Yes: Normal Bowel Sounds, Soft Musculoskeletal: Yes: WNL Extremities: Yes: Other Wound/Incision: Yes: Dressing Dry and Intact Neurological: Yes: Alert, Oriented Psychiatric: Yes: Alert, Oriented Labs: CBC, BMP 10/01/17 06:00 10/01/17 06:00 INR, PTT INR 1.27 (0.82-1.09) H 10/01/17 06:00 Assessment/Plan Problem List - Problems (1) Controlled diabetes mellitus with diabetic peripheral angiopathy without gangrene, without long-term current use of insulin Code(s): E11.51 - TYPE 2 DIABETES W DIABETIC PERIPHERAL ANGIOPATH W/O GANGRENE (2) Diabetic ulcer of left foot Code(s): E11.621 - TYPE 2 DIABETES MELLITUS WITH FOOT ULCER; L97.529 - NON- PRESSURE CHRONIC ULCER OTH PRT LEFT FOOT W UNSP SEVERITY Qualifiers: Diabetic foot ulcer location: other Diabetes mellitus type: type 1 Non- pressure ulcer stage: with other severity Qualified Code(s): E10.621 - Type 1 diabetes mellitus with foot ulcer; L97.528 - Non-pressure chronic ulcer of other part of left foot with other specified severity; L97.528 - Non-pressure chronic ulcer of other part of left foot with other specified severity; L97.528 - Non-pressure chronic ulcer of other part of left foot with other specified severity; L97.528 - Non-pressure chronic ulcer of other part of left foot with other specified severity (3) Abdominal distension Code(s): R14.0 - ABDOMINAL DISTENSION (GASEOUS) (4) Abscess of external ear Code(s): H60.00 - ABSCESS OF EXTERNAL EAR, UNSPECIFIED EAR Qualifiers: Laterality: left Qualified Code(s): H60.02 - Abscess of left external ear (5) Anemia Code(s): D64.9 - ANEMIA, UNSPECIFIED (6) Ascites due to alcoholic cirrhosis Code(s): K70.31 - ALCOHOLIC CIRRHOSIS OF LIVER WITH ASCITES (7) Atherosclerosis Code(s): I70.90 - UNSPECIFIED ATHEROSCLEROSIS SHANEKA LE gangrene/PVD/Ischemia/Osteomylitis Hx of Hepatic Ca Anemia/Thrombocytopenia patient has received abx i d/w podiatry team patient being taken to the operating room plan continue abx await for cx to be back will add clinda continue to monitor for fevers wound care est as per the team
[2017-10-01] MEDS: CLINDAMYCIN 300 MG PREMIX IVPB 300 MG/50 ML BAG IVPB SCH ×2 (13:30→22:09)
[2017-10-01] MEDS: MIDODRINE HCL 5 MG TABLET PO SCH ×2 (13:31→17:51)
--- NOTE | 2017-10-01 15:00 | CON.CARD ---
Consult Consult Specialty:: Cardiology - History of Present Illness Chief Complaint: hypotension History of Present Illness: 57 M with anemia, HCC, history of portal vein thrombosis, hyperlipidemia, CVA, IDDM, gastritis, PVD, esophageal varices admitted for left foot wound for about a month. and is POD 1 toe amputation. He is febrile and noted to have SBP in the 90s. dynies pain, dyspnea or chest pain. Echocardiogram in 2017 showed normal LV systolic function without valvular pathology. - History Source History Provided By: Medical Record - Past Medical History [employer] SUPERVIS[employer]: Yes: Peripheral Neuropathy Cardio/Vascular: Yes: CAD, HTN, Hyperlipdemia Gastrointestinal: Yes: Ascites, Esophageal Varices, Gastritis, GI Bleed, Hemorrhoids, Other Hepatobiliary: Yes: Cirrhosis (h/o esophageal varices s/p banding, related to HERNANDEZ), Cholelithiasis (s/p lap choly), Other (PORTAL VEIN PARTIAL THROMBOSIS, HCC treated with transhepatic heat ablations at [facility]) Renal/: Yes: Renal Inusuff Endocrine: Yes: Diabetes Mellitus - Past Surgical History Past Surgical History: Yes: Amputation (left toe #4, right toes #2,3), Cholecystectomy, Colonoscopy, Hernia Repair, Upper Endoscopy - Alcohol/Substance Use Hx Alcohol Use: No History of Substance Use: reports: None - Smoking History Smoking history: Never smoked Have you smoked in the past 12 months: No Aproximately how many cigarettes per day: 0 - Social History Usual Living Arrangement: With Spouse ADL: Independent 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 [employer] History of Recent Travel: No Home Medications - Allergies Allergies/Adverse Reactions: Allergies Allergy/AdvReac Type Severity Reaction Status Date / Time Iodinated Contrast- Oral and Allergy Verified 09/30/17 13:18 IV Dye [Iodinated Contrast Media - IV Dye] - Home Medications Home Medications: Ambulatory Orders Furosemide [Lasix] 40 mg PO BID 07/15/16 Insulin Detemir [Levemir Flextouch] 50 unit SQ HS 07/15/16 Multivitamins [Multivit ([facility] Formulary)] 1 tab PO DAILY 07/15/16 Nateglinide [Starlix (Nf) -] 60 mg PO TID 07/15/16 Metformin HCl 500 mg PO BID 08/09/16 Aspirin [ASA -] 81 mg PO DAILY tab.chew 10/30/16 Atorvastatin Ca [Lipitor] 10 mg PO HS #30 tab 07/29/17 Nadolol 20 mg PO DAILY #30 tab 12/11/16 Pantoprazole Sodium [Protonix] 40 mg PO DAILY #30 tab 12/11/16 Collagenase Clostridium Hist. [Santyl] 1 applic TP DAILY #90 oint...g. 05/02/17 Insulin Lispro [Humalog Kwikpen] 0 unit SQ TID 09/30/17 Lisinopril 20 mg PO DAILY 09/30/17 Ranolazine [Ranexa] 1,000 mg PO Q12H 09/30/17 Rifaximin [Xifaxan] 550 mg PO BID 09/30/17 Spironolactone [Aldactone -] 50 mg PO DAILY 09/30/17 Family Disease History - Family Disease History Family Disease History: Diabetes: Brother (alcoholic cirrhosis), Sister, CA: Mother (breast Ca), Other: Father ( from alcohol related complications) Review of Systems - Review of Systems Constitutional: reports: No Symptoms Eyes: reports: No Symptoms HENT: reports: No Symptoms Neck: reports: No Symptoms Cardiovascular: denies: Chest Pain, Edema, Palpitations, Shortness of Breath Respiratory: reports: No Symptoms Gastrointestinal: reports: No Symptoms Vital Signs: Vital Signs Temperature 98.1 F 10/01/17 13:18 Pulse Rate 56 L 10/01/17 13:18 Respiratory Rate 20 10/01/17 13:18 Blood Pressure 92/51 10/01/17 13:18 O2 Sat by Pulse Oximetry (%) 98 10/01/17 09:00 Selected Entries 10/01/17 10:15 Temperature 101 F H Constitutional: Yes: Well Nourished, No Distress, Calm Eyes: Yes: Conjunctiva Clear, EOM Intact HENT: Yes: Atraumatic, Normocephalic Neck: Yes: Supple, Trachea Midline Respiratory: Yes: Regular, CTA Bilaterally Gastrointestinal: Yes: Normal Bowel Sounds, Soft, Distention Cardiovascular: Yes: Regular Rate and Rhythm. No: Pulse Irregular, Varicosities JVD: No Carotid Bruit: No PMI: Non-Displaced Heart Sounds: Yes: S1, S2. No: Gallop, Rub Murmur: No: Systolic Murmur, Diastolic Murmur Edema: No - Other Data Labs, Other Data: CBC, BMP 10/01/17 06:00 10/01/17 06:00 INR, PTT INR 1.27 (0.82-1.09) H 10/01/17 06:00 Troponin, BNP 09/30/17 22:00 Troponin I 0.03 D Troponin, BNP 09/30/17 22:00 Troponin I 0.03 D Problem List - Problems (1) Sepsis Code(s): A41.9 - SEPSIS, UNSPECIFIED ORGANISM Assessment/Plan sp toe amputation possibly osteomyelitis. Possibly septic with mild hypotension and SHANEKA. No signs of cardiac dysfunction,. Hold Nadolol until stable. Will see as needed.
--- NOTE | 2017-10-01 16:12 | PN ---
Progress Note (short form) - Note Progress Note: Seen at bedside s/p Debridement / amputation POD#1 Wound is dusky left foot NO signs of purulence , No signs of ascending cellulitis Negative adenopathy Dressing change performed Repeat Noninvasive vascular studies Will discuss with Vascular PT may need further debridement and possible TMA if does not heal Continue local wound care Cultures and bone biopsy pending IVABX as per ID
[2017-10-01] MEDS: COLLAGENASE CLOSTRIDIUM HIST. 30 GRAMS TUBE TP SCH (16:52)
[2017-10-01] MEDS: ATORVASTATIN CA 10 MG TABLET (FP) PO SCH (21:33)
[2017-10-02] MEDS ORDERED: PIPERACILLIN/TAZOBACTAM 3.375 GM VIAL IVPB ONE ×3 (01:29→18:16)
[2017-10-02] MEDS ORDERED: DEXTROSE 5%-WATER - 50 ML IVPB ONE ×3 (01:29→18:17)
[2017-10-02] MEDS: PIPERACILLIN/TAZOB 3.375 GM 3.375 GM in DEXTROSE 5%-WATER - 50 ML IVPB SCH ×3 (01:45→18:24)
[2017-10-02] MEDS: SODIUM CHLORIDE 1,000 ML IV SCH ×2 (03:32→12:05)
[2017-10-02] MEDS: CLINDAMYCIN 300 MG PREMIX IVPB 300 MG/50 ML BAG IVPB SCH ×2 (03:32→11:31)
[2017-10-02] MEDS: HEPARIN NA (PORCINE) 5,000 UNITS/ML 1ML VIAL SQ SCH ×3 (06:33→22:19)
[2017-10-02] MEDS: INSULIN SLIDING SCALE (NOVOLOG) 1 VIAL SQ SCH ×4 (06:33→22:25)
[2017-10-02] MEDS: ACETAMINOPHEN 325 MG TABLET (FP) PO PRN (08:06)
[2017-10-02 08:09] LABS: HEMATOCRIT 23.1 % (35.4-49); HEMOGLOBIN 8.1 GM/dL (11.7-16.9); MCH 33.5 pg (25.7-33.7); MCHC 35.2 g/dl (32.0-35.9); MEAN CELL VOLUME 95.1 fl (80-96); MEAN PLT VOLUME 8.2 fl (7.5-11.1); PLATELET COUNT 85 K/MM3 (134-434); RBC 2.43 M/mm3 (4.00-5.60); RDW 16.6 % (11.9-15.9); WHITE BLOOD COUNT 4.3 K/mm3 (4.0-10.0)
[2017-10-02 08:27] LABS: ALBUMIN 2.1 g/dl (3.4-5.0); ANION GAP 4 (8-16); BLOOD UREA NITROGEN 31 mg/dL (7-18); CALCIUM 7.6 mg/dL (8.5-10.1); CHLORIDE 108 mmol/L (98-107); CO2 24 mmol/L (21-32); CREATININE 1.7 mg/dL (0.7-1.3); GLUCOSE,RANDOM 110 mg/dL (74-106); MAGNESIUM 1.9 mg/dL (1.8-2.4); PHOSPHOROUS 2.4 mg/dL (2.5-4.9); POTASSIUM 4.3 mmol/L (3.5-5.1); SGOT/AST 37 U/L (15-37); SGPT/ALT 21 U/L (12-78); SODIUM 136 mmol/L (136-145)
[2017-10-02 08:29] LABS: ALK PHOS 133 U/L (45-117); BILIRUBIN,TOTAL 2.4 mg/dL (0.2-1.0); TOT PROT 6.4 g/dl (6.4-8.2)
[2017-10-02] MEDS ORDERED: RANOLAZINE E.R. 500 MG TABLET (FP) ONE ×2 (10:21→20:06)
[2017-10-02] MEDS: MIDODRINE HCL 5 MG TABLET PO SCH ×3 (10:24→18:24)
[2017-10-02] MEDS: ASPIRIN 81 MG CHEWABLE TABLETS PO SCH (10:24)
[2017-10-02] MEDS: PANTOPRAZOLE 40 MG TABLET (FP) PO SCH (10:24)
[2017-10-02] MEDS: MULTIVITAMINS (DAILY MVI) TABLET (FP) PO SCH (10:24)
[2017-10-02] MEDS: COLLAGENASE CLOSTRIDIUM HIST. 30 GRAMS TUBE TP SCH (10:25)
[2017-10-02] MEDS: RANOLAZINE E.R. 1,000 MG TABLET (FP) PO SCH ×2 (10:25→22:20)
[2017-10-02] MEDS ORDERED: PT OWN MED DRAWER 7, Y5N ONE ×2 (10:30→20:06)
[2017-10-02] MEDS: INSULIN (LEVEMIR) 100 UNITS/ML UNITS SQ SCH ×2 (10:32→22:25)
[2017-10-02] MEDS: RIFAXIMIN 550 MG TABLET (UD) PO SCH ×2 (10:32→22:20)
[2017-10-02 10:37] LABS: ANISOCYTOSIS 1+; MACROCYTOSIS 1+; PLATELET ESTIMATE DECREASED
--- NOTE | 2017-10-02 10:55 | PN ---
Progress Note, Physician - Current Medication List Current Medications: Active Medications Acetaminophen (Tylenol -) 650 mg PO Q4H PRN PRN Reason: FEVER Last Admin: 10/02/17 08:06 Dose: 650 mg Aspirin (Asa -) 81 mg PO DAILY [facility] Last Admin: 10/02/17 10:24 Dose: 81 mg Atorvastatin Calcium (Lipitor -) 10 mg PO HS [facility] Last Admin: 10/01/17 21:33 Dose: 10 mg Collagenase (Santyl -) 1 applic TP DAILY [facility] Last Admin: 10/02/17 10:25 Dose: Not Given Fentanyl (Sublimaze Injection -) 25 mcg IVPUSH [id number] PRN PRN Reason: PAIN-PACU ORDER X 4 DOSES ONLY Heparin Sodium (Porcine) (Heparin -) 5,000 unit SQ TID [facility] Last Admin: 10/02/17 06:33 Dose: 5,000 unit Piperacillin Sod/Tazobactam (Sod 3.375 gm/ Dextrose) 50 mls @ 100 mls/hr IVPB Q8H-IV J CARLOS PRN Reason: Protocol Last Admin: 10/02/17 10:23 Dose: 100 mls/hr Sodium Chloride (Normal Saline -) 1,000 mls @ 125 mls/hr IV ASDIR [facility] Last Admin: 10/02/17 03:32 Dose: 125 mls/hr Clindamycin Phosphate (Cleocin 300 Mg Premix Ivpb) 300 mg in 50 mls @ 100 mls/ hr IVPB Q6H-IV J CARLOS PRN Reason: Protocol Last Admin: 10/02/17 03:32 Dose: 100 mls/hr Insulin Aspart (Novolog Vial Sliding Scale -) 1 vial SQ ACHS [facility] PRN Reason: Protocol Last Admin: 10/02/17 06:33 Dose: Not Given Insulin Detemir (Levemir Vial) 27 units SQ AM [facility] Last Admin: 10/02/17 10:32 Dose: 27 units Insulin Detemir (Levemir Vial) 15 units SQ HS [facility] Last Admin: 10/01/17 21:32 Dose: 15 units Midodrine (Proamatine -) 5 mg PO TID-MID [facility] Last Admin: 10/02/17 10:24 Dose: 5 mg Multivitamins/Minerals/Vitamin C (Tab-A-Vit -) 1 tab PO DAILY [facility] Last Admin: 10/02/17 10:24 Dose: 1 tab Nadolol (Corgard -) 20 mg PO DAILY [facility] Last Admin: 10/01/17 10:04 Dose: Not Given Pantoprazole Sodium (Protonix -) 40 mg PO DAILY [facility] Last Admin: 10/02/17 10:24 Dose: 40 mg Ranolazine (Ranexa -) 1,000 mg PO BID [facility] Last Admin: 10/02/17 10:25 Dose: 1,000 mg Rifaximin (Xifaxan -) 550 mg PO BID [facility] Last Admin: 10/02/17 10:32 Dose: 550 mg - Objective Vital Signs: Vital Signs Temperature 98 F 10/02/17 10:00 Pulse Rate 50 L 10/02/17 10:00 Respiratory Rate 20 10/02/17 10:00 Blood Pressure 118/63 10/02/17 10:00 O2 Sat by Pulse Oximetry (%) 98 10/01/17 21:00 Cardiovascular: Yes: S1, S2 Respiratory: Yes: Regular, CTA Bilaterally Gastrointestinal: Yes: Normal Bowel Sounds, Soft Edema: No Wound/Incision: Yes: Dressing Dry and Intact Labs: CBC, BMP 10/02/17 06:00 10/02/17 06:00 INR, PTT INR 1.27 (0.82-1.09) H 10/01/17 06:00 Problem List - Problems (1) Sepsis Assessment/Plan: -IV ABX PER ID -IVF -CULTURES -S/P DEBRIDEMENT Microbiology 10/01/17 Unknown Wound Culture - Preliminary Toe - Left Fifth Lactose Fermenting Neg Bacilli 09/30/17 Unknown Tissue Culture - Preliminary Bone Lactose Fermenting Neg Bacilli Group D Strep Or Entero Coccus 09/30/17 16:39 Urine Culture - Final Urine - Urine Clean Catch NO GROWTH OBTAINED 09/30/17 14:01 Blood Culture - Preliminary Blood - Peripheral Venous Pending Organism 09/30/17 14:01 Blood Culture - Preliminary Blood - Peripheral Venous Pending Organism Code(s): A41.9 - SEPSIS, UNSPECIFIED ORGANISM (2) Diabetic ulcer of left foot Assessment/Plan: Operative Date: 09/30/17 Pre-Operative Diagnosis: gangrene /diabetic foot infection left foot Operation: Amputation 5th toe with bone biopsy and culture left foot Surgeon: Norm Goncalves Code(s): E11.621 - TYPE 2 DIABETES MELLITUS WITH FOOT ULCER; L97.529 - NON- PRESSURE CHRONIC ULCER OTH PRT LEFT FOOT W UNSP SEVERITY Qualifiers: Diabetic foot ulcer location: other Diabetes mellitus type: type 1 Non- pressure ulcer stage: with other severity Qualified Code(s): E10.621 - Type 1 diabetes mellitus with foot ulcer; L97.528 - Non-pressure chronic ulcer of other part of left foot with other specified severity; L97.528 - Non-pressure chronic ulcer of other part of left foot with other specified severity; L97.528 - Non-pressure chronic ulcer of other part of left foot with other specified severity; L97.528 - Non-pressure chronic ulcer of other part of left foot with other specified severity (3) Diabetes mellitus, insulin dependent (IDDM), uncontrolled Assessment/Plan: BGM WITH COVERAGE Code(s): E10.65 - TYPE 1 DIABETES MELLITUS WITH HYPERGLYCEMIA (4) HCC (hepatocellular carcinoma) Code(s): C22.0 - LIVER CELL CARCINOMA (5) Anemia Assessment/Plan: TRANSFUSE ONE UNIT Code(s): D64.9 - ANEMIA, UNSPECIFIED
--- NOTE | 2017-10-02 11:06 | PN ---
Progress Note, Physician History of Present Illness: patient post op from amputation feeling better events noted currently calm - Current Medication List Current Medications: Active Medications Acetaminophen (Tylenol -) 650 mg PO Q4H PRN PRN Reason: FEVER Last Admin: 10/02/17 08:06 Dose: 650 mg Aspirin (Asa -) 81 mg PO DAILY [facility] Last Admin: 10/02/17 10:24 Dose: 81 mg Atorvastatin Calcium (Lipitor -) 10 mg PO HS [facility] Last Admin: 10/01/17 21:33 Dose: 10 mg Collagenase (Santyl -) 1 applic TP DAILY [facility] Last Admin: 10/02/17 10:25 Dose: Not Given Fentanyl (Sublimaze Injection -) 25 mcg IVPUSH [id number] PRN PRN Reason: PAIN-PACU ORDER X 4 DOSES ONLY Heparin Sodium (Porcine) (Heparin -) 5,000 unit SQ TID [facility] Last Admin: 10/02/17 06:33 Dose: 5,000 unit Piperacillin Sod/Tazobactam (Sod 3.375 gm/ Dextrose) 50 mls @ 100 mls/hr IVPB Q8H-IV J CARLOS PRN Reason: Protocol Last Admin: 10/02/17 10:23 Dose: 100 mls/hr Sodium Chloride (Normal Saline -) 1,000 mls @ 125 mls/hr IV ASDIR [facility] Last Admin: 10/02/17 03:32 Dose: 125 mls/hr Clindamycin Phosphate (Cleocin 300 Mg Premix Ivpb) 300 mg in 50 mls @ 100 mls/ hr IVPB Q6H-IV J CARLOS PRN Reason: Protocol Last Admin: 10/02/17 03:32 Dose: 100 mls/hr Insulin Aspart (Novolog Vial Sliding Scale -) 1 vial SQ ACHS [facility] PRN Reason: Protocol Last Admin: 10/02/17 06:33 Dose: Not Given Insulin Detemir (Levemir Vial) 27 units SQ AM [facility] Last Admin: 10/02/17 10:32 Dose: 27 units Insulin Detemir (Levemir Vial) 15 units SQ HS [facility] Last Admin: 10/01/17 21:32 Dose: 15 units Midodrine (Proamatine -) 5 mg PO TID-MID [facility] Last Admin: 10/02/17 10:24 Dose: 5 mg Multivitamins/Minerals/Vitamin C (Tab-A-Vit -) 1 tab PO DAILY [facility] Last Admin: 10/02/17 10:24 Dose: 1 tab Nadolol (Corgard -) 20 mg PO DAILY [facility] Last Admin: 10/01/17 10:04 Dose: Not Given Pantoprazole Sodium (Protonix -) 40 mg PO DAILY [facility] Last Admin: 10/02/17 10:24 Dose: 40 mg Ranolazine (Ranexa -) 1,000 mg PO BID [facility] Last Admin: 10/02/17 10:25 Dose: 1,000 mg Rifaximin (Xifaxan -) 550 mg PO BID [facility] Last Admin: 10/02/17 10:32 Dose: 550 mg - Objective Vital Signs: Vital Signs Temperature 98 F 10/02/17 10:00 Pulse Rate 50 L 10/02/17 10:00 Respiratory Rate 20 10/02/17 10:00 Blood Pressure 118/63 10/02/17 10:00 O2 Sat by Pulse Oximetry (%) 98 10/01/17 21:00 Constitutional: Yes: No Distress, Calm, Obese Cardiovascular: Yes: Regular Rate and Rhythm, Bradycardia Respiratory: Yes: Regular, CTA Bilaterally Gastrointestinal: Yes: Normal Bowel Sounds, Soft Musculoskeletal: Yes: WNL Extremities: Yes: Other Wound/Incision: Yes: Dressing Dry and Intact Neurological: Yes: Alert, Oriented Psychiatric: Yes: Alert, Oriented Labs: CBC, BMP 10/02/17 06:00 10/02/17 06:00 INR, PTT INR 1.27 (0.82-1.09) H 10/01/17 06:00 Assessment/Plan Problem List - Problems (1) Controlled diabetes mellitus with diabetic peripheral angiopathy without gangrene, without long-term current use of insulin Code(s): E11.51 - TYPE 2 DIABETES W DIABETIC PERIPHERAL ANGIOPATH W/O GANGRENE (2) Diabetic ulcer of left foot Code(s): E11.621 - TYPE 2 DIABETES MELLITUS WITH FOOT ULCER; L97.529 - NON- PRESSURE CHRONIC ULCER OTH PRT LEFT FOOT W UNSP SEVERITY Qualifiers: Diabetic foot ulcer location: other Diabetes mellitus type: type 1 Non- pressure ulcer stage: with other severity Qualified Code(s): E10.621 - Type 1 diabetes mellitus with foot ulcer; L97.528 - Non-pressure chronic ulcer of other part of left foot with other specified severity; L97.528 - Non-pressure chronic ulcer of other part of left foot with other specified severity; L97.528 - Non-pressure chronic ulcer of other part of left foot with other specified severity; L97.528 - Non-pressure chronic ulcer of other part of left foot with other specified severity (3) Abdominal distension Code(s): R14.0 - ABDOMINAL DISTENSION (GASEOUS) (4) Abscess of external ear Code(s): H60.00 - ABSCESS OF EXTERNAL EAR, UNSPECIFIED EAR Qualifiers: Laterality: left Qualified Code(s): H60.02 - Abscess of left external ear (5) Anemia Code(s): D64.9 - ANEMIA, UNSPECIFIED (6) Ascites due to alcoholic cirrhosis Code(s): K70.31 - ALCOHOLIC CIRRHOSIS OF LIVER WITH ASCITES (7) Atherosclerosis Code(s): I70.90 - UNSPECIFIED ATHEROSCLEROSIS SHANEKA LE gangrene/PVD/Ischemia/Osteomylitis Hx of Hepatic Ca Anemia/Thrombocytopenia all the cx reports noted plan await for identification of bacteria will stop clinda continue zosyn monitor for fevers and bp
[2017-10-02] MEDS: NADOLOL 20 MG TABLET (FP) PO SCH (11:29)
--- NOTE | 2017-10-02 11:43 | PN ---
Progress Note (short form) - Note Progress Note: Renal Follow up for SHANEKA Pt seen and examined at the bedside no acute complaints denies any sob, chest pain, abd pain has pain in his right foot making urine s/p prbc transfusion Vital Signs Temperature 98 F 10/02/17 10:00 Pulse Rate 50 L 10/02/17 10:00 Respiratory Rate 20 10/02/17 10:00 Blood Pressure 118/63 10/02/17 10:00 O2 Sat by Pulse Oximetry (%) 98 10/01/17 21:00 Intake & Output 09/29/17 09/30/17 10/01/17 10/02/17 23:59 23:59 23:59 23:59 Intake Total 650 2925 1400 Output Total 200 1650 Balance 450 1275 1400 Weight 111.13 kg NAD MMM bradycardic, no M/R CTA + ascities + trace LE edema CBC, BMP 10/02/17 06:00 10/02/17 06:00 Current Medications Acetaminophen (Tylenol -) 650 mg PO Q4H PRN PRN Reason: FEVER Last Admin: 10/02/17 08:06 Dose: 650 mg Albumin Human (Albumin Human 25%) 25 gm IVPB Q6H J [facility] Stop: 10/03/17 05:46 Aspirin (Asa -) 81 mg PO DAILY J [facility] Last Admin: 10/02/17 10:24 Dose: 81 mg Atorvastatin Calcium (Lipitor -) 10 mg PO HS [facility] Last Admin: 10/01/17 21:33 Dose: 10 mg Collagenase (Santyl -) 1 applic TP DAILY [facility] Last Admin: 10/02/17 10:25 Dose: Not Given Fentanyl (Sublimaze Injection -) 25 mcg IVPUSH [id number] PRN PRN Reason: PAIN-PACU ORDER X 4 DOSES ONLY Heparin Sodium (Porcine) (Heparin -) 5,000 unit SQ TID [facility] Last Admin: 10/02/17 06:33 Dose: 5,000 unit Piperacillin Sod/Tazobactam (Sod 3.375 gm/ Dextrose) 50 mls @ 100 mls/hr IVPB Q8H-IV J [facility] PRN Reason: Protocol Last Admin: 10/02/17 10:23 Dose: 100 mls/hr Sodium Chloride (Normal Saline -) 1,000 mls @ 84 mls/hr IV ASDIR J CARL[facility] Insulin Aspart (Novolog Vial Sliding Scale -) 1 vial SQ ACHS [facility] PRN Reason: Protocol Last Admin: 10/02/17 11:29 Dose: Not Given Insulin Detemir (Levemir Vial) 27 units SQ AM [facility] Last Admin: 10/02/17 10:32 Dose: 27 units Insulin Detemir (Levemir Vial) 15 units SQ HS [facility] Last Admin: 10/01/17 21:32 Dose: 15 units Midodrine (Proamatine -) 5 mg PO TID-MID [facility] Last Admin: 10/02/17 10:24 Dose: 5 mg Multivitamins/Minerals/Vitamin C (Tab-A-Vit -) 1 tab PO DAILY [facility] Last Admin: 10/02/17 10:24 Dose: 1 tab Nadolol (Corgard -) 20 mg PO DAILY [facility] Last Admin: 10/02/17 11:29 Dose: Not Given Pantoprazole Sodium (Protonix -) 40 mg PO DAILY [facility] Last Admin: 10/02/17 10:24 Dose: 40 mg Ranolazine (Ranexa -) 1,000 mg PO BID [facility] Last Admin: 10/02/17 10:25 Dose: 1,000 mg Rifaximin (Xifaxan -) 550 mg PO BID [facility] Last Admin: 10/02/17 10:32 Dose: 550 mg 57 year old gentleman with PMhx of Hepatic Ca s/p radiation wit stigmata of liver disease , DM, Anemia, Hypertertension, HLD, CVA, Gastritis presented with infected left foot now s/p amputation with SHANEKA. #SHANEKA (baseline Cr 1.3) secondary to ATN/HRS #LE gangrene/PVD/Ischemia/Osteomylitis #Hx of Hepatic Ca #hx of hypertension, now hypotensive #Anemia/Thrombocytopenia Urine studies show FeUrea of 50% consistent with tubular injury Decrease IVF rate and give IV albumin Q6h continue midodirne to maintain MAP > 65 US of the kidneys showed no obtruction Trend BUN/Cr no indication for [employer] continue Abx as per LUCRECIA Faith DO
[2017-10-02] MEDS: ALBUMIN HUMAN 25% 12.5 GM/50 ML VIAL IVPB SCH ×2 (13:45→20:22)
[2017-10-02] MEDS: ATORVASTATIN CA 10 MG TABLET (FP) PO SCH (22:19)
[2017-10-02] MEDS ORDERED: INSULIN (LEVEMIR) 100 UNITS/ML UNITS SQ SCH (22:33)
[2017-10-03] MEDS ORDERED: PIPERACILLIN/TAZOBACTAM 3.375 GM VIAL IVPB ONE ×3 (01:08→17:31)
[2017-10-03] MEDS ORDERED: DEXTROSE 5%-WATER - 50 ML IVPB ONE ×3 (01:08→17:31)
[2017-10-03] MEDS: PIPERACILLIN/TAZOB 3.375 GM 3.375 GM in DEXTROSE 5%-WATER - 50 ML IVPB SCH ×3 (01:10→17:47)
[2017-10-03] MEDS: ALBUMIN HUMAN 25% 12.5 GM/50 ML VIAL IVPB SCH ×2 (01:40→09:52)
[2017-10-03] MEDS: INSULIN SLIDING SCALE (NOVOLOG) 1 VIAL SQ SCH ×4 (06:07→22:06)
[2017-10-03] MEDS: HEPARIN NA (PORCINE) 5,000 UNITS/ML 1ML VIAL SQ SCH ×3 (06:08→22:05)
[2017-10-03] MEDS: SODIUM CHLORIDE 1,000 ML IV SCH ×2 (06:13→13:11)
[2017-10-03] MEDS ORDERED: INSULIN (LEVEMIR) 100 UNITS/ML UNITS SQ SCH ×2 (07:00→22:00)
[2017-10-03 07:53] LABS: HEMATOCRIT 24.1 % (35.4-49); HEMOGLOBIN 8.5 GM/dL (11.7-16.9); MCH 33.4 pg (25.7-33.7); MCHC 35.3 g/dl (32.0-35.9); MEAN CELL VOLUME 94.6 fl (80-96); MEAN PLT VOLUME 7.7 fl (7.5-11.1); PLATELET COUNT 88 K/MM3 (134-434); RBC 2.55 M/mm3 (4.00-5.60); RDW 16.7 % (11.9-15.9); WHITE BLOOD COUNT 4.9 K/mm3 (4.0-10.0)
[2017-10-03 08:17] LABS: CHLORIDE 107 mmol/L (98-107); POTASSIUM 4.3 mmol/L (3.5-5.1); SODIUM 137 mmol/L (136-145)
[2017-10-03 08:43] LABS: ALBUMIN 2.7 g/dl (3.4-5.0); ALK PHOS 129 U/L (45-117); ANION GAP 7 (8-16); BILIRUBIN,TOTAL 1.9 mg/dL (0.2-1.0); BLOOD UREA NITROGEN 25 mg/dL (7-18); CALCIUM 7.9 mg/dL (8.5-10.1); CO2 23 mmol/L (21-32); CREATININE 1.5 mg/dL (0.7-1.3); GLUCOSE,RANDOM 84 mg/dL (74-106); MAGNESIUM 1.9 mg/dL (1.8-2.4); PHOSPHOROUS 2.8 mg/dL (2.5-4.9); SGOT/AST 33 U/L (15-37); SGPT/ALT 20 U/L (12-78); TOT PROT 6.9 g/dl (6.4-8.2)
[2017-10-03] MEDS ORDERED: RANOLAZINE E.R. 500 MG TABLET (FP) ONE ×2 (09:18→20:58)
[2017-10-03] MEDS: MIDODRINE HCL 5 MG TABLET PO SCH ×3 (09:59→17:47)
[2017-10-03] MEDS ORDERED: PT OWN MED DRAWER 7, Y5N ONE ×2 (09:59→20:59)
[2017-10-03] MEDS: RANOLAZINE E.R. 1,000 MG TABLET (FP) PO SCH ×2 (10:00→22:07)
[2017-10-03] MEDS: RIFAXIMIN 550 MG TABLET (UD) PO SCH ×2 (10:00→22:06)
[2017-10-03] MEDS: COLLAGENASE CLOSTRIDIUM HIST. 30 GRAMS TUBE TP SCH (10:00)
[2017-10-03] MEDS: PANTOPRAZOLE 40 MG TABLET (FP) PO SCH (10:01)
[2017-10-03] MEDS: MULTIVITAMINS (DAILY MVI) TABLET (FP) PO SCH (10:01)
[2017-10-03] MEDS: NADOLOL 20 MG TABLET (FP) PO SCH (10:02)
--- NOTE | 2017-10-03 10:30 | PN ---
Progress Note (short form) - Note Progress Note: Podiatry F/U: Seen/evaluated at bedside, NAD. Mild pain to L foot. Denies F/V/N/C/SOB/CP. Afebrile, VSS. S/p L fifth digit amputation and partial fifth ray resection with bone biopsy POD#3. GEORGE: L foot: DP 1/4, PT non-palpable, TG wnl. Post-surgical diabetic ulcer fifth ray with fibronecrotic base and periphery, mild tenderness to palpation, minimal periwound erythema, streaking cellulitis greatly improved, no soft tissue crepitus, no purulence, no fluctuance. WBC: 4.9 OR Cx: GNB, group D strep Imp: 57 year old IDDM M s/p L fifth ray partial resection and fifth toe amputation for severe diabetic foot infection 1. IV abx 2. Saline wet to dry applied L foot 3. Will discuss case with Vascular. ?vascular intervention. If cleared from vascular standpoint will need another debridement/lavage in OR. Plan for Tuesday. 4. Will follow. Angel Aguirre DPM
[2017-10-03] MEDS: ASPIRIN 81 MG CHEWABLE TABLETS PO SCH (12:00)
[2017-10-03] MEDS ORDERED: traMADol HCL 50 MG TABLET PO PRN (12:04)
[2017-10-03 13:21] LABS: ACANTHOCYTES 0; ANISOCYTOSIS 0; HELMET CELLS 0; HOWELL-JOLLY BODIES 0; MACROCYTOSIS 0; OVALOCYTE 0; PLATELET ESTIMATE DECREASED; ROULEAU 0; SICKELED CELLS 0; TARGET CELLS 0; TEAR DROP CELLS 0; TOXIC GRANULATION 0
--- NOTE | 2017-10-03 14:26 | PN ---
Progress Note, Physician History of Present Illness: doing well no issues cx results noted still awaiting organisms patient for redebridement tomorrow - Current Medication List Current Medications: Active Medications Acetaminophen (Tylenol -) 650 mg PO Q4H PRN PRN Reason: FEVER Last Admin: 10/02/17 08:06 Dose: 650 mg Aspirin (Asa -) 81 mg PO DAILY [facility] Last Admin: 10/03/17 12:00 Dose: 81 mg Atorvastatin Calcium (Lipitor -) 10 mg PO HS [facility] Last Admin: 10/02/17 22:19 Dose: 10 mg Collagenase (Santyl -) 1 applic TP DAILY [facility] Last Admin: 10/03/17 10:00 Dose: Not Given Fentanyl (Sublimaze Injection -) 25 mcg IVPUSH [id number] PRN PRN Reason: PAIN-PACU ORDER X 4 DOSES ONLY Heparin Sodium (Porcine) (Heparin -) 5,000 unit SQ TID [facility] Last Admin: 10/03/17 06:08 Dose: 5,000 unit Sodium Chloride (Normal Saline -) 1,000 mls @ 84 mls/hr IV ASDIR [facility] Last Admin: 10/03/17 13:11 Dose: Not Given Piperacillin Sod/Tazobactam (Sod 3.375 gm/ Dextrose) 50 mls @ 100 mls/hr IVPB Q8H-IV J CARLOS PRN Reason: Protocol Last Admin: 10/03/17 11:02 Dose: 100 mls/hr Insulin Aspart (Novolog Vial Sliding Scale -) 1 vial SQ ACHS J CARLOS PRN Reason: Protocol Last Admin: 10/03/17 13:11 Dose: Not Given Insulin Detemir (Levemir Vial) 12 units SQ HS [facility] Insulin Detemir (Levemir Vial) 24 units SQ AM [facility] Last Admin: 10/03/17 06:11 Dose: 24 units Lactobacillus Acidophilus (Bacid -) 1 tab PO BID J CARLOS Midodrine (Proamatine -) 5 mg PO TID-MID [facility] Last Admin: 10/03/17 09:59 Dose: 5 mg Multivitamins/Minerals/Vitamin C (Tab-A-Vit -) 1 tab PO DAILY [facility] Last Admin: 10/03/17 10:01 Dose: 1 tab Nadolol (Corgard -) 20 mg PO DAILY [facility] Last Admin: 10/03/17 10:02 Dose: Not Given Pantoprazole Sodium (Protonix -) 40 mg PO DAILY [facility] Last Admin: 10/03/17 10:01 Dose: 40 mg Ranolazine (Ranexa -) 1,000 mg PO BID [facility] Last Admin: 10/03/17 10:00 Dose: 1,000 mg Rifaximin (Xifaxan -) 550 mg PO BID [facility] Last Admin: 10/03/17 10:00 Dose: 550 mg Tramadol HCl (Ultram -) 50 mg PO Q8H PRN PRN Reason: PAIN LEVEL 6-10 - Objective Vital Signs: Vital Signs Temperature 98.9 F 10/03/17 09:00 Pulse Rate 55 L 10/03/17 09:00 Respiratory Rate 20 10/03/17 09:00 Blood Pressure 131/71 10/03/17 09:00 O2 Sat by Pulse Oximetry (%) 98 10/03/17 09:00 Constitutional: Yes: No Distress, Calm Cardiovascular: Yes: Regular Rate and Rhythm Respiratory: Yes: Regular, CTA Bilaterally Gastrointestinal: Yes: Normal Bowel Sounds, Soft Musculoskeletal: Yes: WNL Extremities: Yes: Other Wound/Incision: Yes: Dressing Dry and Intact Neurological: Yes: Alert, Oriented Psychiatric: Yes: Alert, Oriented Labs: CBC, BMP 10/03/17 07:30 10/03/17 07:30 INR, PTT INR 1.27 (0.82-1.09) H 10/01/17 06:00 Assessment/Plan Problem List - Problems (1) Controlled diabetes mellitus with diabetic peripheral angiopathy without gangrene, without long-term current use of insulin Code(s): E11.51 - TYPE 2 DIABETES W DIABETIC PERIPHERAL ANGIOPATH W/O GANGRENE (2) Diabetic ulcer of left foot Code(s): E11.621 - TYPE 2 DIABETES MELLITUS WITH FOOT ULCER; L97.529 - NON- PRESSURE CHRONIC ULCER OTH PRT LEFT FOOT W UNSP SEVERITY Qualifiers: Diabetic foot ulcer location: other Diabetes mellitus type: type 1 Non- pressure ulcer stage: with other severity Qualified Code(s): E10.621 - Type 1 diabetes mellitus with foot ulcer; L97.528 - Non-pressure chronic ulcer of other part of left foot with other specified severity; L97.528 - Non-pressure chronic ulcer of other part of left foot with other specified severity; L97.528 - Non-pressure chronic ulcer of other part of left foot with other specified severity; L97.528 - Non-pressure chronic ulcer of other part of left foot with other specified severity (3) Abdominal distension Code(s): R14.0 - ABDOMINAL DISTENSION (GASEOUS) (4) Abscess of external ear Code(s): H60.00 - ABSCESS OF EXTERNAL EAR, UNSPECIFIED EAR Qualifiers: Laterality: left Qualified Code(s): H60.02 - Abscess of left external ear (5) Anemia Code(s): D64.9 - ANEMIA, UNSPECIFIED (6) Ascites due to alcoholic cirrhosis Code(s): K70.31 - ALCOHOLIC CIRRHOSIS OF LIVER WITH ASCITES (7) Atherosclerosis Code(s): I70.90 - UNSPECIFIED ATHEROSCLEROSIS SHANEKA LE gangrene/PVD/Ischemia/Osteomylitis Hx of Hepatic Ca Anemia/Thrombocytopenia plan still awaiting for identification of bacteria patient for debridement tomorrow 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
[2017-10-03] MEDS: LACTOBACILLUS ACIDOPHILUS 1 TABLET PO SCH ×2 (14:34→22:05)
--- NOTE | 2017-10-03 17:36 | PN ---
Progress Note (short form) - Note Progress Note: Renal Follow up for SHANEKA Pt seen and examined at the bedside no acute complaints denies any sob, chest pain, abd pain making urine Vital Signs Temperature 98.0 F 10/03/17 14:28 Pulse Rate 59 L 10/03/17 14:28 Respiratory Rate 20 10/03/17 14:28 Blood Pressure 125/56 10/03/17 14:28 O2 Sat by Pulse Oximetry (%) 98 10/03/17 09:00 Intake & Output 09/30/17 10/01/17 10/02/17 10/03/17 23:59 23:59 23:59 23:59 Intake Total 650 2925 2695 1670 Output Total 200 5331 688 8754 Balance 450 1275 1895 120 Weight 111.13 kg 111.13 kg NAD MMM bradycardic, no M/R CTA + ascities + trace LE edema CBC, BMP 10/03/17 07:30 10/03/17 07:30 Current Medications Acetaminophen (Tylenol -) 650 mg PO Q4H PRN PRN Reason: FEVER Last Admin: 10/02/17 08:06 Dose: 650 mg Aspirin (Asa -) 81 mg PO DAILY [facility] Last Admin: 10/03/17 12:00 Dose: 81 mg Atorvastatin Calcium (Lipitor -) 10 mg PO HS [facility] Last Admin: 10/02/17 22:19 Dose: 10 mg Collagenase (Santyl -) 1 applic TP DAILY [facility] Last Admin: 10/03/17 10:00 Dose: Not Given Fentanyl (Sublimaze Injection -) 25 mcg IVPUSH [id number] PRN PRN Reason: PAIN-PACU ORDER X 4 DOSES ONLY Heparin Sodium (Porcine) (Heparin -) 5,000 unit SQ TID [facility] Last Admin: 10/03/17 14:34 Dose: 5,000 unit Piperacillin Sod/Tazobactam (Sod 3.375 gm/ Dextrose) 50 mls @ 100 mls/hr IVPB Q8H-IV [facility] PRN Reason: Protocol Last Admin: 10/03/17 11:02 Dose: 100 mls/hr Insulin Aspart (Novolog Vial Sliding Scale -) 1 vial SQ ACHS [facility] PRN Reason: Protocol Last Admin: 10/03/17 17:18 Dose: Not Given Insulin Detemir (Levemir Vial) 12 units SQ HS [facility] Insulin Detemir (Levemir Vial) 24 units SQ AM [facility] Last Admin: 10/03/17 06:11 Dose: 24 units Lactobacillus Acidophilus (Bacid -) 1 tab PO BID [facility] Last Admin: 10/03/17 14:34 Dose: 1 tab Midodrine (Proamatine -) 5 mg PO TID-MID [facility] Last Admin: 10/03/17 14:35 Dose: 5 mg Multivitamins/Minerals/Vitamin C (Tab-A-Vit -) 1 tab PO DAILY [facility] Last Admin: 10/03/17 10:01 Dose: 1 tab Nadolol (Corgard -) 20 mg PO DAILY [facility] Last Admin: 10/03/17 10:02 Dose: Not Given Pantoprazole Sodium (Protonix -) 40 mg PO DAILY [facility] Last Admin: 10/03/17 10:01 Dose: 40 mg Ranolazine (Ranexa -) 1,000 mg PO BID [facility] Last Admin: 10/03/17 10:00 Dose: 1,000 mg Rifaximin (Xifaxan -) 550 mg PO BID [facility] Last Admin: 10/03/17 10:00 Dose: 550 mg Tramadol HCl (Ultram -) 50 mg PO Q8H PRN PRN Reason: PAIN LEVEL 6-10 57 year old gentleman with PMhx of Hepatic Ca s/p radiation wit stigmata of liver disease , DM, Anemia, Hypertertension, HLD, CVA, Gastritis presented with infected left foot now s/p amputation with SHANEKA. #SHANEKA (baseline Cr 1.3) secondary to ATN/HRS #LE gangrene/PVD/Ischemia/Osteomylitis #Hx of Hepatic Ca #hx of hypertension, now hypotensive #Anemia/Thrombocytopenia Renal function improving toward baseline will D/C IVF and Albumin as to minimize risk of volume expansion/worsening ascities continue Midodrine to maintain BP Trend CBC, transfuse as needed Anton Faith DO
--- NOTE | 2017-10-03 17:54 | PN ---
Progress Note, Physician Chief Complaint: Left diabetic foot ulcer History of Present Illness: NAD Seen by ID and nephrology IV abx Also seen by Podiatry, going for debridement on tuesday? - Current Medication List Current Medications: Active Medications Acetaminophen (Tylenol -) 650 mg PO Q4H PRN PRN Reason: FEVER Last Admin: 10/02/17 08:06 Dose: 650 mg Aspirin (Asa -) 81 mg PO DAILY [facility] Last Admin: 10/03/17 12:00 Dose: 81 mg Atorvastatin Calcium (Lipitor -) 10 mg PO HS [facility] Last Admin: 10/02/17 22:19 Dose: 10 mg Collagenase (Santyl -) 1 applic TP DAILY [facility] Last Admin: 10/03/17 10:00 Dose: Not Given Fentanyl (Sublimaze Injection -) 25 mcg IVPUSH [id number] PRN PRN Reason: PAIN-PACU ORDER X 4 DOSES ONLY Heparin Sodium (Porcine) (Heparin -) 5,000 unit SQ TID [facility] Last Admin: 10/03/17 14:34 Dose: 5,000 unit Piperacillin Sod/Tazobactam (Sod 3.375 gm/ Dextrose) 50 mls @ 100 mls/hr IVPB Q8H-IV J CAR[facility]OS PRN Reason: Protocol Last Admin: 10/03/17 11:02 Dose: 100 mls/hr Insulin Aspart (Novolog Vial Sliding Scale -) 1 vial SQ ACHS J CARLOS PRN Reason: Protocol Last Admin: 10/03/17 17:18 Dose: Not Given Insulin Detemir (Levemir Vial) 12 units SQ HS [facility] Insulin Detemir (Levemir Vial) 24 units SQ AM [facility] Last Admin: 10/03/17 06:11 Dose: 24 units Lactobacillus Acidophilus (Bacid -) 1 tab PO BID [facility] Last Admin: 10/03/17 14:34 Dose: 1 tab Midodrine (Proamatine -) 5 mg PO TID-MID [facility] Last Admin: 10/03/17 14:35 Dose: 5 mg Multivitamins/Minerals/Vitamin C (Tab-A-Vit -) 1 tab PO DAILY [facility] Last Admin: 10/03/17 10:01 Dose: 1 tab Nadolol (Corgard -) 20 mg PO DAILY [facility] Last Admin: 10/03/17 10:02 Dose: Not Given Pantoprazole Sodium (Protonix -) 40 mg PO DAILY [facility] Last Admin: 10/03/17 10:01 Dose: 40 mg Ranolazine (Ranexa -) 1,000 mg PO BID [facility] Last Admin: 10/03/17 10:00 Dose: 1,000 mg Rifaximin (Xifaxan -) 550 mg PO BID [facility] Last Admin: 10/03/17 10:00 Dose: 550 mg Tramadol HCl (Ultram -) 50 mg PO Q8H PRN PRN Reason: PAIN LEVEL 6-10 - Objective Vital Signs: Vital Signs Temperature 98.0 F 10/03/17 14:28 Pulse Rate 59 L 10/03/17 14:28 Respiratory Rate 20 10/03/17 14:28 Blood Pressure 125/56 10/03/17 14:28 O2 Sat by Pulse Oximetry (%) 98 10/03/17 09:00 Constitutional: Yes: Well Nourished, No Distress, Calm Cardiovascular: Yes: Regular Rate and Rhythm Respiratory: Yes: Regular Gastrointestinal: Yes: Ascites, Hypoactive Bowel Sounds Musculoskeletal: Yes: Muscle Weakness Integumentary: Yes: Other (Left fifth toe amputation) Wound/Incision: Yes: Dressing Dry and Intact Neurological: Yes: Alert, Oriented Psychiatric: Yes: Alert, Oriented Labs: CBC, BMP 10/03/17 07:30 10/03/17 07:30 INR, PTT INR 1.27 (0.82-1.09) H 10/01/17 06:00 Problem List - Problems (1) Diabetes type 2, uncontrolled Assessment/Plan: -BGM -Diabetic diet -Insulin long and short acting -RD consult -Endocrinology on board Code(s): E11.65 - TYPE 2 DIABETES MELLITUS WITH HYPERGLYCEMIA Qualifiers: Diabetes mellitus complication status: with circulatory complication Diabetes mellitus complication detail: with other circulatory complications (2) CAD (coronary artery disease) Assessment/Plan: -aspirin 81 mg po daily -Lipitor 10 mg po HS -Seen by cardiology -Nadolol on hold for bradycardia -On Ranexa 550 mg po BID Code(s): I25.10 - ATHSCL HEART DISEASE OF [place] CORONARY ARTERY W/O ANG PCTRS (3) Anemia Assessment/Plan: -2/2 CKD chronic disease -received 1 unit PRBC -normal transfusion parameters -Stool Guaiac -Recheck iron profile, thyroid profile, B 12, folate -labs in AM Code(s): D64.9 - ANEMIA, UNSPECIFIED (4) Ascites Assessment/Plan: -On U/S abdomen- moderate ascites -Chronic -GI consult Code(s): R18.8 - OTHER ASCITES Qualifiers: Ascites type: other type Qualified Code(s): R18.8 - Other ascites (5) Cellulitis of toe, left Assessment/Plan: -ID consult appreciated -Wound culture: Microbiology 09/30/17 Unknown Gram Stain - Final Bone Tissue Culture - Final Enterobacter Cloacae Enterococcus Faecalis Anaerobic Culture - Final Prevotella Bivia 10/01/17 Unknown Gram Stain - Final Toe - Left Fifth Wound Culture - Preliminary Enterobacter Cloacae Pending Organism 09/30/17 14:01 Blood Culture - Final Blood - Peripheral Venous Prevotella Bivia 10/02/17 12:15 Blood Culture - Preliminary Blood - Peripheral Venous NO GROWTH OBTAINED AFTER 24 HOURS, INCUBATION TO CONTINUE FOR 4 DAYS. 10/02/17 11:41 Blood Culture - Preliminary Blood - Peripheral Venous NO GROWTH OBTAINED AFTER 24 HOURS, INCUBATION TO CONTINUE FOR 4 DAYS. -On IV Zosyn 3.375 Q8H -Podiatry consult Code(s): L03.032 - CELLULITIS OF LEFT TOE (6) SHANEKA (acute kidney injury) Assessment/Plan: -Seen by Nephrology -Likely secondary to use of JOSI+NSAID's -hold BP meds -Avoid usage of nsaid's at this time -midodrine 5 mg po TID-MID -Labs in AM Code(s): N17.9 - ACUTE KIDNEY FAILURE, UNSPECIFIED Assessment/Plan see problem list -DVT prophylaxis
--- NOTE | 2017-10-03 20:08 | PN ---
Progress Note, Physician Chief Complaint: no complaint comfortable,appetite poor,sugars high History of Present Illness: dm,pad,hyperglycmia,diabetes vascular disease - Current Medication List Current Medications: Active Medications Acetaminophen (Tylenol -) 650 mg PO Q4H PRN PRN Reason: FEVER Last Admin: 10/02/17 08:06 Dose: 650 mg Aspirin (Asa -) 81 mg PO DAILY [facility] Last Admin: 10/03/17 12:00 Dose: 81 mg Atorvastatin Calcium (Lipitor -) 10 mg PO HS [facility] Last Admin: 10/02/17 22:19 Dose: 10 mg Collagenase (Santyl -) 1 applic TP DAILY [facility] Last Admin: 10/03/17 10:00 Dose: Not Given Fentanyl (Sublimaze Injection -) 25 mcg IVPUSH [id number] PRN PRN Reason: PAIN-PACU ORDER X 4 DOSES ONLY Heparin Sodium (Porcine) (Heparin -) 5,000 unit SQ TID [facility] Last Admin: 10/03/17 14:34 Dose: 5,000 unit Piperacillin Sod/Tazobactam (Sod 3.375 gm/ Sodium Chloride) 100 mls @ 200 mls/ hr IVPB Q8H-IV [facility] PRN Reason: Protocol Insulin Aspart (Novolog Vial Sliding Scale -) 1 vial SQ ACHS [facility] PRN Reason: Protocol Last Admin: 10/03/17 17:18 Dose: Not Given Insulin Detemir (Levemir Vial) 12 units SQ HS [facility] Insulin Detemir (Levemir Vial) 24 units SQ AM [facility] Last Admin: 10/03/17 06:11 Dose: 24 units Lactobacillus Acidophilus (Bacid -) 1 tab PO BID [facility] Last Admin: 10/03/17 14:34 Dose: 1 tab Midodrine (Proamatine -) 5 mg PO TID-MID [facility] Last Admin: 10/03/17 17:47 Dose: 5 mg Multivitamins/Minerals/Vitamin C (Tab-A-Vit -) 1 tab PO DAILY [facility] Last Admin: 10/03/17 10:01 Dose: 1 tab Nadolol (Corgard -) 20 mg PO DAILY [facility] Last Admin: 10/03/17 10:02 Dose: Not Given Pantoprazole Sodium (Protonix -) 40 mg PO DAILY [facility] Last Admin: 10/03/17 10:01 Dose: 40 mg Ranolazine (Ranexa -) 1,000 mg PO BID [facility] Last Admin: 10/03/17 10:00 Dose: 1,000 mg Rifaximin (Xifaxan -) 550 mg PO BID [facility] Last Admin: 10/03/17 10:00 Dose: 550 mg Tramadol HCl (Ultram -) 50 mg PO Q8H PRN PRN Reason: PAIN LEVEL 6-10 - Objective Vital Signs: Vital Signs Temperature 99.7 F H 10/03/17 18:00 Pulse Rate 91 H 10/03/17 18:00 Respiratory Rate 20 10/03/17 18:00 Blood Pressure 124/65 10/03/17 18:00 O2 Sat by Pulse Oximetry (%) 98 10/03/17 09:00 Constitutional: Yes: Calm Eyes: Yes: EOM Intact HENT: Yes: Normocephalic Neck: Yes: Trachea Midline Cardiovascular: Yes: Regular Rate and Rhythm Respiratory: Yes: CTA Bilaterally Gastrointestinal: Yes: Normal Bowel Sounds ...Rectal Exam: Yes: Deferred Genitourinary: Yes: WNL Breast(s): Yes: WNL Musculoskeletal: Yes: Muscle Weakness Extremities: Yes: WNL, Delayed Capillary Refill Edema: No Peripheral Pulses WNL: No Wound/Incision: Yes: Well Approximated Psychiatric: Yes: Alert, Oriented Labs: CBC, BMP 10/03/17 07:30 10/03/17 07:30 INR, PTT INR 1.27 (0.82-1.09) H 10/01/17 06:00 Problem List - Problems (1) Controlled diabetes mellitus with diabetic peripheral angiopathy without gangrene, without long-term current use of insulin Code(s): E11.51 - TYPE 2 DIABETES W DIABETIC PERIPHERAL ANGIOPATH W/O GANGRENE (2) Diabetic ulcer of left foot Code(s): E11.621 - TYPE 2 DIABETES MELLITUS WITH FOOT ULCER; L97.529 - NON- PRESSURE CHRONIC ULCER OTH PRT LEFT FOOT W UNSP SEVERITY Qualifiers: Diabetic foot ulcer location: other Diabetes mellitus type: type 1 Non- pressure ulcer stage: with other severity Qualified Code(s): E10.621 - Type 1 diabetes mellitus with foot ulcer; L97.528 - Non-pressure chronic ulcer of other part of left foot with other specified severity; L97.528 - Non-pressure chronic ulcer of other part of left foot with other specified severity; L97.528 - Non-pressure chronic ulcer of other part of left foot with other specified severity; L97.528 - Non-pressure chronic ulcer of other part of left foot with other specified severity (3) Abdominal distension Code(s): R14.0 - ABDOMINAL DISTENSION (GASEOUS) (4) Abscess of external ear Code(s): H60.00 - ABSCESS OF EXTERNAL EAR, UNSPECIFIED EAR Qualifiers: Laterality: left Qualified Code(s): H60.02 - Abscess of left external ear (5) Anemia Code(s): D64.9 - ANEMIA, UNSPECIFIED (6) Ascites due to alcoholic cirrhosis Code(s): K70.31 - ALCOHOLIC CIRRHOSIS OF LIVER WITH ASCITES (7) Atherosclerosis Code(s): I70.90 - UNSPECIFIED ATHEROSCLEROSIS Assessment/Plan Current Active Problems SHANEKA (acute kidney injury) (Acute) CKD (chronic kidney disease) (Acute) Controlled diabetes mellitus with diabetic peripheral angiopathy without gangrene, without long-term current use of insulin (Acute) Diabetic ulcer of left foot (Acute) Sepsis (Acute) Abnormal Lab Results 09/30/17 09/30/17 10/03/17 14:01 14:01 07:30 RBC 2.55 L Hgb 8.5 L Hct 24.1 L RDW 16.7 H Plt Count 88 L VBG pH 7.31 L POC VBG pO2 13.7 L* Anion Gap BUN Creatinine Lactic Acid 3.3 H* Calcium Total Bilirubin Alkaline Phosphatase Albumin 10/03/17 07:30 RBC Hgb Hct RDW Plt Count VBG pH POC VBG pO2 Anion Gap 7 L BUN 25 H Creatinine 1.5 H Lactic Acid Calcium 7.9 L Total Bilirubin 1.9 H D Alkaline Phosphatase 129 H Albumin 2.7 L D Laboratory Results - last 24 hr 09/30/17 09/30/17 10/02/17 14:01 14:01 22:24 WBC RBC Hgb Hct MCV MCH MCHC RDW Plt Count MPV Total Counted Neutrophils % Neutrophils % (Manual) Band Neutrophils % Lymphocytes % Lymphocytes % (Manual) Monocytes % (Manual) Eosinophils % (Manual) Basophils % (Manual) Myelocytes % (Man) Promyelocytes % (Man) Blast Cells % (Manual) Nucleated RBC % Metamyelocytes Hypochromia Toxic Granulation Dohle Bodies Platelet Estimate Platelet Comment Polychromasia Poikilocytosis Basophilic Stippling Anisocytosis Microcytosis Macrocytosis Spherocytes Sickle Cells Target Cells Tear Drop Cells Ovalocytes Stomatocytes Helmet Cells [place] Bodies [place] Rings [place] Cells Acanthocytes (Spur) Rouleaux Fragmented RBCs Schistocytes VBG pH 7.31 L POC VBG pCO2 47.6 POC VBG pO2 13.7 L* Mixed VBG HCO3 23.1 Sodium Potassium Chloride Carbon Dioxide Anion Gap BUN Creatinine Creat Clearance w eGFR POC Glucometer 155 Random Glucose Lactic Acid 3.3 H* Calcium Phosphorus Magnesium Total Bilirubin AST ALT Alkaline Phosphatase Total Protein Albumin 10/03/17 10/03/17 07:30 07:30 WBC 4.9 RBC 2.55 L Hgb 8.5 L Hct 24.1 L MCV 94.6 MCH 33.4 MCHC 35.3 RDW 16.7 H Plt Count 88 L MPV 7.7 Total Counted 100 Neutrophils % No Result Required. Neutrophils % (Manual) 72.0 Band Neutrophils % 6.0 Lymphocytes % No Result Required. Lymphocytes % (Manual) 8.0 D Monocytes % (Manual) 9 Eosinophils % (Manual) 3.0 D Basophils % (Manual) 0.0 Myelocytes % (Man) 1 D Promyelocytes % (Man) 0 Blast Cells % (Manual) 0 Nucleated RBC % 0 Metamyelocytes 0 Hypochromia 0 Toxic Granulation 0 Dohle Bodies 0 Platelet Estimate Decreased Platelet Comment Present Polychromasia 0 Poikilocytosis 0 Basophilic Stippling 0 Anisocytosis 0 Microcytosis 0 Macrocytosis 0 Spherocytes 0 Sickle Cells 0 Target Cells 0 Tear Drop Cells 0 Ovalocytes 0 Stomatocytes 0 Helmet Cells 0 [place] Bodies 0 [place] Rings 0 [place] Cells 0 Acanthocytes (Spur) 0 Rouleaux 0 Fragmented RBCs 0 Schistocytes 0 VBG pH POC VBG pCO2 POC VBG pO2 Mixed VBG HCO3 Sodium 137 Potassium 4.3 Chloride 107 Carbon Dioxide 23 Anion Gap 7 L BUN 25 H Creatinine 1.5 H Creat Clearance w eGFR 47.90 POC Glucometer Random Glucose 84 D Lactic Acid Calcium 7.9 L Phosphorus 2.8 Magnesium 1.9 Total Bilirubin 1.9 H D AST 33 ALT 20 Alkaline Phosphatase 129 H Total Protein 6.9 Albumin 2.7 L D Laboratory Tests 10/02/17 10/02/17 10/02/17 06:32 10:36 16:21 Sodium Potassium Chloride Carbon Dioxide Anion Gap BUN Creatinine POC Glucometer 132 151 134 Random Glucose 10/02/17 10/03/17 22:24 07:30 Sodium 137 Potassium 4.3 Chloride 107 Carbon Dioxide 23 Anion Gap 7 L BUN 25 H Creatinine 1.5 H POC Glucometer 155 Random Glucose 84 D plan: bgm qid novolog doses levemir dose adjustement will need tight controll for healing wound
[2017-10-03] MEDS ORDERED: INSULIN (NOVOLOG) ASPART 100 UNITS/ML 10ML VIAL ONE (20:58)
[2017-10-03] MEDS: ATORVASTATIN CA 10 MG TABLET (FP) PO SCH (22:06)
--- NOTE | 2017-10-04 00:33 | EKG ---
Test Reason : Blood Pressure : / mmHG Vent. Rate : 059 BPM Atrial Rate : 059 BPM P-R Int : 190 ms QRS Dur : 114 ms QT Int : 466 ms P-R-T Axes : 029 -33 059 degrees QTc Int : 461 ms SINUS BRADYCARDIA LEFT AXIS DEVIATION ABNORMAL ECG WHEN COMPARED WITH ECG OF 30-SEP-2017 13:46, T WAVE VARIATION Confirmed by REGGIE SÁNCHEZ, BRISA ([id number]) on 10/04/2017 12:32:32 AM Referred By: Rimma ROSALES Confirmed By:BRISA PAREDES MD
--- NOTE | 2017-10-04 00:43 | EKG ---
Test Reason : Blood Pressure : / mmHG Vent. Rate : 082 BPM Atrial Rate : 082 BPM P-R Int : 172 ms QRS Dur : 098 ms QT Int : 374 ms P-R-T Axes : 011 -45 074 degrees QTc Int : 436 ms NORMAL SINUS RHYTHM LEFT ANTERIOR FASCICULAR BLOCK MINIMAL VOLTAGE CRITERIA FOR LVH, MAY BE NORMAL VARIANT NONSPECIFIC ST AND T WAVE ABNORMALITY ABNORMAL ECG WHEN COMPARED WITH ECG OF 10-MAY-2017 20:08, T WAVE VARIATION Confirmed by BRISA PAREDES MD ([id number]) on 10/04/2017 12:42:54 AM Referred By: Confirmed By:BRISA PAREDES MD
[2017-10-04] MEDS ORDERED: SODIUM CHLORIDE 100 ML IVPB ONE ×2 (02:14→10:35)
[2017-10-04] MEDS ORDERED: PIPERACILLIN/TAZOBACTAM 3.375 GM VIAL IVPB ONE ×2 (02:14→10:35)
[2017-10-04] MEDS: PIPERACILLIN/TAZOB 3.375 GM 3.375 GM in SODIUM CHLORIDE 100 ML IVPB SCH ×3 (02:49→19:23)
[2017-10-04] MEDS: HEPARIN NA (PORCINE) 5,000 UNITS/ML 1ML VIAL SQ SCH ×3 (05:56→21:52)
[2017-10-04] MEDS: INSULIN SLIDING SCALE (NOVOLOG) 1 VIAL SQ SCH ×4 (06:30→21:52)
[2017-10-04] MEDS ORDERED: INSULIN (LEVEMIR) 100 UNITS/ML UNITS SQ SCH (07:00)
[2017-10-04 07:50] LABS: BASO % 0.6 % (0-2.0); EOS % 1.6 % (0-4.5); HEMATOCRIT 23.6 % (35.4-49); HEMOGLOBIN 8.3 GM/dL (11.7-16.9); LYMPH % 15.8 % (8-40); MCH 33.5 pg (25.7-33.7); MCHC 35.4 g/dl (32.0-35.9); MEAN CELL VOLUME 94.7 fl (80-96); MEAN PLT VOLUME 7.4 fl (7.5-11.1); MONO % 14.8 % (3.8-10.2); NEUT % 67.2 % (42.8-82.8); PLATELET COUNT 74 K/MM3 (134-434); RBC 2.49 M/mm3 (4.00-5.60); RDW 16.4 % (11.9-15.9); WHITE BLOOD COUNT 4.6 K/mm3 (4.0-10.0)
[2017-10-04 08:11] LABS: CHLORIDE 109 mmol/L (98-107); SODIUM 138 mmol/L (136-145)
[2017-10-04 08:38] LABS: ANION GAP 6 (8-16); BLOOD UREA NITROGEN 20 mg/dL (7-18); CALCIUM 7.9 mg/dL (8.5-10.1); CO2 23 mmol/L (21-32); CREATININE 1.2 mg/dL (0.7-1.3); GLUCOSE,RANDOM 100 mg/dL (74-106); MAGNESIUM 1.9 mg/dL (1.8-2.4); PHOSPHOROUS 2.7 mg/dL (2.5-4.9)
[2017-10-04] MEDS ORDERED: RANOLAZINE E.R. 500 MG TABLET (FP) ONE ×2 (10:34→21:18)
[2017-10-04] MEDS ORDERED: PT OWN MED DRAWER 7, Y5N ONE ×2 (10:35→21:19)
[2017-10-04] MEDS: MULTIVITAMINS (DAILY MVI) TABLET (FP) PO SCH (11:05)
[2017-10-04] MEDS: ASPIRIN 81 MG CHEWABLE TABLETS PO SCH (11:05)
--- NOTE | 2017-10-04 11:05 | PN ---
Progress Note, Physician Chief Complaint: Left diabetic foot ulcer History of Present Illness: NAD Seen by ID and nephrology IV abx Also seen by Podiatry, going for washout today in the afternoon - Current Medication List Current Medications: Active Medications Acetaminophen (Tylenol -) 650 mg PO Q4H PRN PRN Reason: FEVER Last Admin: 10/02/17 08:06 Dose: 650 mg Aspirin (Asa -) 81 mg PO DAILY [facility] Last Admin: 10/03/17 12:00 Dose: 81 mg Atorvastatin Calcium (Lipitor -) 10 mg PO HS [facility] Last Admin: 10/03/17 22:06 Dose: 10 mg Collagenase (Santyl -) 1 applic TP DAILY [facility] Last Admin: 10/03/17 10:00 Dose: Not Given Heparin Sodium (Porcine) (Heparin -) 5,000 unit SQ TID [facility] Last Admin: 10/04/17 05:56 Dose: Not Given Piperacillin Sod/Tazobactam (Sod 3.375 gm/ Sodium Chloride) 100 mls @ 200 mls/ hr IVPB Q8H-IV J CARLOS PRN Reason: Protocol Last Admin: 10/04/17 10:46 Dose: 200 mls/hr Insulin Aspart (Novolog Vial Sliding Scale -) 1 vial SQ ACHS J CARLOS PRN Reason: Protocol Last Admin: 10/04/17 06:30 Dose: Not Given Insulin Detemir (Levemir Vial) 25 units SQ AM [facility] Last Admin: 10/04/17 06:31 Dose: Not Given Insulin Detemir (Levemir Vial) 10 units SQ HS [facility] Last Admin: 10/03/17 22:05 Dose: 10 unit Lactobacillus Acidophilus (Bacid -) 1 tab PO BID [facility] Last Admin: 10/03/17 22:05 Dose: 1 tab Midodrine (Proamatine -) 5 mg PO TID-MID [facility] Last Admin: 10/03/17 17:47 Dose: 5 mg Multivitamins/Minerals/Vitamin C (Tab-A-Vit -) 1 tab PO DAILY [facility] Last Admin: 10/03/17 10:01 Dose: 1 tab Nadolol (Corgard -) 20 mg PO DAILY [facility] Last Admin: 10/03/17 10:02 Dose: Not Given Pantoprazole Sodium (Protonix -) 40 mg PO DAILY [facility] Last Admin: 10/03/17 10:01 Dose: 40 mg Ranolazine (Ranexa -) 1,000 mg PO BID [facility] Last Admin: 10/03/17 22:07 Dose: 1,000 mg Rifaximin (Xifaxan -) 550 mg PO BID [facility] Last Admin: 10/03/17 22:06 Dose: 550 mg Tramadol HCl (Ultram -) 50 mg PO Q8H PRN PRN Reason: PAIN LEVEL 6-10 - Objective Vital Signs: Vital Signs Temperature 98.4 F 10/04/17 10:49 Pulse Rate 56 L 10/04/17 10:49 Respiratory Rate 18 10/04/17 10:49 Blood Pressure 126/61 10/04/17 10:49 O2 Sat by Pulse Oximetry (%) 98 10/03/17 21:00 Constitutional: Yes: Well Nourished, No Distress, Calm Cardiovascular: Yes: Regular Rate and Rhythm Respiratory: Yes: Regular Gastrointestinal: Yes: Normal Bowel Sounds, Soft, Abdomen, Obese Musculoskeletal: Yes: WNL Extremities: Yes: Amputation (left 5th toe) Edema: No Wound/Incision: Yes: Dressing Dry and Intact Neurological: Yes: Alert, Oriented Psychiatric: Yes: Alert, Oriented Labs: CBC, BMP 10/04/17 06:00 10/04/17 06:00 INR, PTT INR 1.27 (0.82-1.09) H 10/01/17 06:00 Problem List - Problems (1) Diabetes type 2, uncontrolled Assessment/Plan: -BGM -Diabetic diet -A1c 5.6 -Insulin long and short acting, adjust by endocrinology -RD consult -Endocrinology on board Code(s): E11.65 - TYPE 2 DIABETES MELLITUS WITH HYPERGLYCEMIA Qualifiers: Diabetes mellitus complication status: with circulatory complication Diabetes mellitus complication detail: with other circulatory complications (2) CAD (coronary artery disease) Assessment/Plan: -aspirin 81 mg po daily -Lipitor 10 mg po HS -Seen by cardiology -Nadolol on hold for bradycardia -On Ranexa 550 mg po BID Code(s): I25.10 - ATHSCL HEART DISEASE OF [place] CORONARY ARTERY W/O ANG PCTRS (3) Anemia Assessment/Plan: -2/2 CKD chronic disease -received 1 unit PRBC -normal transfusion parameters -Stool Guaiac pending -Iron profile pending -thyroid profile, B 12, folate okay -labs in AM Code(s): D64.9 - ANEMIA, UNSPECIFIED (4) Ascites Assessment/Plan: -On U/S abdomen- moderate ascites -Chronic -GI consult Code(s): R18.8 - OTHER ASCITES Qualifiers: Ascites type: other type Qualified Code(s): R18.8 - Other ascites (5) Cellulitis of toe, left Assessment/Plan: -ID consult appreciated -Wound culture: Microbiology 09/30/17 Unknown Gram Stain - Final Bone Tissue Culture - Final Enterobacter Cloacae Enterococcus Faecalis Anaerobic Culture - Final Prevotella Bivia 10/01/17 Unknown Gram Stain - Final Toe - Left Fifth Wound Culture - Preliminary Enterobacter Cloacae Pending Organism 09/30/17 14:01 Blood Culture - Final Blood - Peripheral Venous Prevotella Bivia 10/02/17 12:15 Blood Culture - Preliminary Blood - Peripheral Venous NO GROWTH OBTAINED AFTER 24 HOURS, INCUBATION TO CONTINUE FOR 4 DAYS. 10/02/17 11:41 Blood Culture - Preliminary Blood - Peripheral Venous NO GROWTH OBTAINED AFTER 24 HOURS, INCUBATION TO CONTINUE FOR 4 DAYS. -On IV Zosyn 3.375 Q8H -Podiatry consult -debridement today Code(s): L03.032 - CELLULITIS OF LEFT TOE (6) SHANEKA (acute kidney injury) Assessment/Plan: -Seen by Nephrology -Likely secondary to use of JOSI+NSAID's -hold BP meds -Avoid usage of nsaid's at this time -midodrine 5 mg po TID-MID -Labs in AM Code(s): N17.9 - ACUTE KIDNEY FAILURE, UNSPECIFIED Assessment/Plan see problem list -DVT prophylaxis
[2017-10-04] MEDS: LACTOBACILLUS ACIDOPHILUS 1 TABLET PO SCH ×2 (11:06→21:51)
[2017-10-04] MEDS: NADOLOL 20 MG TABLET (FP) PO SCH ×2 (11:06→11:12)
[2017-10-04] MEDS: MIDODRINE HCL 5 MG TABLET PO SCH ×3 (11:06→17:29)
[2017-10-04] MEDS: RANOLAZINE E.R. 1,000 MG TABLET (FP) PO SCH ×2 (11:06→21:51)
[2017-10-04] MEDS: PANTOPRAZOLE 40 MG TABLET (FP) PO SCH (11:06)
[2017-10-04] MEDS: RIFAXIMIN 550 MG TABLET (UD) PO SCH ×2 (11:08→21:51)
[2017-10-04] MEDS: COLLAGENASE CLOSTRIDIUM HIST. 30 GRAMS TUBE TP SCH (11:19)
--- NOTE | 2017-10-04 13:44 | PN ---
Progress Note, Physician History of Present Illness: doing well no issues cx results noted still awaiting organisms debridement today - Current Medication List Current Medications: Active Medications Acetaminophen (Tylenol -) 650 mg PO Q4H PRN PRN Reason: FEVER Last Admin: 10/02/17 08:06 Dose: 650 mg Aspirin (Asa -) 81 mg PO DAILY [facility] Last Admin: 10/04/17 11:05 Dose: 81 mg Atorvastatin Calcium (Lipitor -) 10 mg PO HS [facility] Last Admin: 10/03/17 22:06 Dose: 10 mg Collagenase (Santyl -) 1 applic TP DAILY [facility] Last Admin: 10/04/17 11:19 Dose: Not Given Heparin Sodium (Porcine) (Heparin -) 5,000 unit SQ TID [facility] Last Admin: 10/04/17 05:56 Dose: Not Given Piperacillin Sod/Tazobactam (Sod 3.375 gm/ Sodium Chloride) 100 mls @ 200 mls/ hr IVPB Q8H-IV J CARLOS PRN Reason: Protocol Last Admin: 10/04/17 10:46 Dose: 200 mls/hr Insulin Aspart (Novolog Vial Sliding Scale -) 1 vial SQ ACHS [facility] PRN Reason: Protocol Last Admin: 10/04/17 11:20 Dose: Not Given Insulin Detemir (Levemir Vial) 25 units SQ AM [facility] Last Admin: 10/04/17 06:31 Dose: Not Given Insulin Detemir (Levemir Vial) 10 units SQ HS [facility] Last Admin: 10/03/17 22:05 Dose: 10 unit Lactobacillus Acidophilus (Bacid -) 1 tab PO BID [facility] Last Admin: 10/04/17 11:06 Dose: 1 tab Midodrine (Proamatine -) 5 mg PO TID-MID [facility] Last Admin: 10/04/17 11:06 Dose: 5 mg Multivitamins/Minerals/Vitamin C (Tab-A-Vit -) 1 tab PO DAILY [facility] Last Admin: 10/04/17 11:05 Dose: 1 tab Nadolol (Corgard -) 20 mg PO DAILY [facility] Last Admin: 10/04/17 11:12 Dose: Not Given Pantoprazole Sodium (Protonix -) 40 mg PO DAILY [facility] Last Admin: 10/04/17 11:06 Dose: 40 mg Ranolazine (Ranexa -) 1,000 mg PO BID [facility] Last Admin: 10/04/17 11:06 Dose: 1,000 mg Rifaximin (Xifaxan -) 550 mg PO BID J [facility] Last Admin: 10/04/17 11:08 Dose: 550 mg Tramadol HCl (Ultram -) 50 mg PO Q8H PRN PRN Reason: PAIN LEVEL 6-10 - Objective Vital Signs: Vital Signs Temperature 98.4 F 10/04/17 10:49 Pulse Rate 56 L 10/04/17 10:49 Respiratory Rate 18 10/04/17 10:49 Blood Pressure 126/61 10/04/17 10:49 O2 Sat by Pulse Oximetry (%) 98 10/04/17 09:00 Constitutional: Yes: No Distress, Calm Cardiovascular: Yes: Regular Rate and Rhythm Respiratory: Yes: Regular, CTA Bilaterally Gastrointestinal: Yes: Normal Bowel Sounds, Soft Musculoskeletal: Yes: WNL Extremities: Yes: Other Neurological: Yes: Alert, Oriented Psychiatric: Yes: Alert, Oriented Labs: CBC, BMP 10/04/17 06:00 10/04/17 06:00 INR, PTT INR 1.27 (0.82-1.09) H 10/01/17 06:00 Assessment/Plan Problem List - Problems (1) Controlled diabetes mellitus with diabetic peripheral angiopathy without gangrene, without long-term current use of insulin Code(s): E11.51 - TYPE 2 DIABETES W DIABETIC PERIPHERAL ANGIOPATH W/O GANGRENE (2) Diabetic ulcer of left foot Code(s): E11.621 - TYPE 2 DIABETES MELLITUS WITH FOOT ULCER; L97.529 - NON- PRESSURE CHRONIC ULCER OTH PRT LEFT FOOT W UNSP SEVERITY Qualifiers: Diabetic foot ulcer location: other Diabetes mellitus type: type 1 Non- pressure ulcer stage: with other severity Qualified Code(s): E10.621 - Type 1 diabetes mellitus with foot ulcer; L97.528 - Non-pressure chronic ulcer of other part of left foot with other specified severity; L97.528 - Non-pressure chronic ulcer of other part of left foot with other specified severity; L97.528 - Non-pressure chronic ulcer of other part of left foot with other specified severity; L97.528 - Non-pressure chronic ulcer of other part of left foot with other specified severity (3) Abdominal distension Code(s): R14.0 - ABDOMINAL DISTENSION (GASEOUS) (4) Abscess of external ear Code(s): H60.00 - ABSCESS OF EXTERNAL EAR, UNSPECIFIED EAR Qualifiers: Laterality: left Qualified Code(s): H60.02 - Abscess of left external ear (5) Anemia Code(s): D64.9 - ANEMIA, UNSPECIFIED (6) Ascites due to alcoholic cirrhosis Code(s): K70.31 - ALCOHOLIC CIRRHOSIS OF LIVER WITH ASCITES (7) Atherosclerosis Code(s): I70.90 - UNSPECIFIED ATHEROSCLEROSIS SHANEKA LE gangrene/PVD/Ischemia/Osteomylitis Hx of Hepatic Ca Anemia/Thrombocytopenia plan awaiting identification of bacteria rest continue current mgmt await for identification of bacteria rest as per the team
--- NOTE | 2017-10-04 15:49 | CON.GI ---
Consult Consult Specialty:: GI Reason for Consultation:: ascites - History of Present Illness History of Present Illness: Chart reviewed. Events noted. Prior admissions going back to early 2017 reviewed. A 57-year-old gentleman with history of Diabetes, metabolic liver disease, liver cirrhosis, portal hypertension, grade 3 esophageal varices status post banding, portal veins from boluses, hepatocellular carcinoma status post radiation therapy, followed at [facility] by Drs. Geronimo and Justice. Admitted for lower extremity infection. GI was called for moderate ascites. At the time of this encountered the patient is awake, alert, oriented 3. No asterixis, tremors, jaundice. Does not appear toxic. Reports his liver history in fairly good detail. Remembers all his current medications. He is scheduled for lower extremity wound debridement today. the patient denies dysphagia, odynophagia or nausea, vomiting, hematemesis, coffee-ground emesis, jaundice, low-grade fever, chills, early satiety, shortness of breath sitting up, or laying down. Denies abdominal pain, tenderness. Denies melena, hematochezia, change in stool caliber. Reports no bowel movements since yesterday. - History Source History Provided By: Patient, Medical Record - Past Medical History VALIDATION MANAGER: Yes: Peripheral Neuropathy Cardio/Vascular: Yes: CAD, HTN, Hyperlipdemia Gastrointestinal: Yes: Ascites, Esophageal Varices, Gastritis, GI Bleed, Hemorrhoids, Other Hepatobiliary: Yes: Cirrhosis (h/o esophageal varices s/p banding, related to HERNANDEZ), Cholelithiasis (s/p lap choly), Other (PORTAL VEIN PARTIAL THROMBOSIS, HCC treated with transhepatic heat ablations at 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 [employer] History of Recent Travel: No Home Medications - Allergies Allergies/Adverse Reactions: Allergies Allergy/AdvReac Type Severity Reaction Status Date / Time Iodinated Contrast- Oral and Allergy Verified 09/30/17 13:18 IV Dye [Iodinated Contrast Media - IV Dye] - Home Medications Home Medications: Ambulatory Orders Furosemide [Lasix] 40 mg PO BID 07/15/16 Insulin Detemir [Levemir Flextouch] 50 unit SQ HS 07/15/16 Multivitamins [Multivit ([facility] Formulary)] 1 tab PO DAILY 07/15/16 Nateglinide [Starlix (Nf) -] 60 mg PO TID 07/15/16 Metformin HCl 500 mg PO BID 08/09/16 Aspirin [ASA -] 81 mg PO DAILY tab.chew 10/30/16 Atorvastatin Ca [Lipitor] 10 mg PO HS #30 tab 12/11/16 Nadolol 20 mg PO DAILY #30 tab 12/11/16 Pantoprazole Sodium [Protonix] 40 mg PO DAILY #30 tab 12/11/16 Collagenase Clostridium Hist. [Santyl] 1 applic TP DAILY #90 oint...g. 05/02/17 Insulin Lispro [Humalog Kwikpen] 0 unit SQ TID 09/30/17 Lisinopril 20 mg PO DAILY 09/30/17 Ranolazine [Ranexa] 1,000 mg PO Q12H 09/30/17 Rifaximin [Xifaxan] 550 mg PO BID 09/30/17 Spironolactone [Aldactone -] 50 mg PO DAILY 09/30/17 Family Disease History - Family Disease History Family Disease History: Diabetes: Brother (alcoholic cirrhosis), Sister, CA: Mother (breast Ca), Other: Father ( from alcohol related complications) Review of Systems Findings/Remarks: As per H&P and the HPI. Physical Exam-GI Vital Signs: Vital Signs Temperature 98.0 F 10/04/17 14:19 Pulse Rate 51 L 10/04/17 14:19 Respiratory Rate 18 10/04/17 14:19 Blood Pressure 122/60 10/04/17 14:19 O2 Sat by Pulse Oximetry (%) 98 10/04/17 09:00 Constitutional: Yes: No Distress, Calm Eyes: Yes: Conjunctiva Clear. No: Sclera Icterus HENT: Yes: Atraumatic Neck: Yes: Supple Cardiovascular: No: Bradycardia, Tachycardia Respiratory: Yes: Regular, CTA Bilaterally Gastrointestinal Inspection: Yes: Ascites, Distention ...Palpate: Yes: Soft. No: Firm/Rigid, Guarding, Mass, Tenderness, Tenderness, Epigastium, Tenderness, Rebound Neurological: Yes: Alert, Oriented. No: Asterixis, Confusion, Lethargy, Tremors Labs: CBC, BMP 10/04/17 06:00 10/04/17 06:00 INR, PTT INR 1.27 (0.82-1.09) H 10/01/17 06:00 Laboratory Last Values WBC 4.6 K/mm3 (4.0-10.0) 10/04/17 06:00 RBC 2.49 M/mm3 (4.00-5.60) L 10/04/17 06:00 Hgb 8.3 GM/dL (11.7-16.9) L 10/04/17 06:00 Hct 23.6 % (35.4-49) L 10/04/17 06:00 MCV 94.7 fl (80-96) 10/04/17 06:00 MCH 33.5 pg (25.7-33.7) 10/04/17 06:00 MCHC 35.4 g/dl (32.0-35.9) 10/04/17 06:00 RDW 16.4 % (11.9-15.9) H 10/04/17 06:00 Plt Count 74 K/MM3 (134-434) L 10/04/17 06:00 MPV 7.4 fl (7.5-11.1) L 10/04/17 06:00 Total Counted 100 10/03/17 07:30 Neutrophils % 67.2 % (42.8-82.8) D 10/04/17 06:00 Neutrophils % (Manual) 72.0 % (42.8-82.8) 10/03/17 07:30 Band Neutrophils % 6.0 % 10/03/17 07:30 Lymphocytes % 15.8 % (8-40) D 10/04/17 06:00 Lymphocytes % (Manual) 8.0 % (8-40) D 10/03/17 07:30 Monocytes % 14.8 % (3.8-10.2) H D 10/04/17 06:00 Monocytes % (Manual) 9 % (3.8-10.2) 10/03/17 07:30 Eosinophils % 1.6 % (0-4.5) D 10/04/17 06:00 Eosinophils % (Manual) 3.0 % (0-4.5) D 10/03/17 07:30 Basophils % 0.6 % (0-2.0) 10/04/17 06:00 Basophils % (Manual) 0.0 % (0-2.0) 10/03/17 07:30 Myelocytes % (Man) 1 % (0-2) D 10/03/17 07:30 Promyelocytes % (Man) 0 % (0-2) 10/03/17 07:30 Blast Cells % (Manual) 0 % (0-0) 10/03/17 07:30 Nucleated RBC % 0 % (0-0) 10/04/17 06:00 Metamyelocytes 0 % (0-2) 10/03/17 07:30 Hypochromia 0 10/03/17 07:30 Toxic Granulation 0 10/03/17 07:30 Dohle Bodies 0 10/03/17 07:30 Platelet Estimate Decreased 10/03/17 07:30 Platelet Comment Present 10/03/17 07:30 Polychromasia 0 10/03/17 07:30 Poikilocytosis 0 10/03/17 07:30 Basophilic Stippling 0 10/03/17 07:30 Anisocytosis 0 10/03/17 07:30 Microcytosis 0 10/03/17 07:30 Macrocytosis 0 10/03/17 07:30 Spherocytes 0 10/03/17 07:30 Sickle Cells 0 10/03/17 07:30 Target Cells 0 10/03/17 07:30 Tear Drop Cells 0 10/03/17 07:30 Ovalocytes 0 10/03/17 07:30 Stomatocytes 0 10/03/17 07:30 Helmet Cells 0 10/03/17 07:30 Ole[place] Bodies 0 10/03/17 07:30 [place] Rings 0 10/03/17 07:30 Yazmin Cells 0 10/03/17 07:30 Acanthocytes (Spur) 0 10/03/17 07:30 Rouleaux 0 10/03/17 07:30 Fragmented RBCs 0 10/03/17 07:30 Schistocytes 0 10/03/17 07:30 PT with INR 14.30 SEC (9.7-13.0) H 10/01/17 06:00 INR 1.27 (0.82-1.09) H 10/01/17 06:00 PTT (Actin FS) 29.9 SECONDS (26.9-34.4) 09/30/17 14:01 VBG pH 7.31 (7.32-7.42) L 09/30/17 14:01 POC VBG pCO2 47.6 mmHg (38-52) 09/30/17 14:01 POC VBG pO2 13.7 mmHg (28-48) L* 09/30/17 14:01 Mixed VBG HCO3 23.1 meq/L (19-25) 09/30/17 14:01 Sodium 138 mmol/L (136-145) 10/04/17 06:00 Potassium 4.0 mmol/L (3.5-5.1) 10/04/17 06:00 Chloride 109 mmol/L (98-107) H 10/04/17 06:00 Carbon Dioxide 23 mmol/L (21-32) 10/04/17 06:00 Anion Gap 6 (8-16) L 10/04/17 06:00 BUN 20 mg/dL (7-18) H 10/04/17 06:00 Creatinine 1.2 mg/dL (0.7-1.3) 10/04/17 06:00 Creat Clearance w eGFR 47.90 (>60) 10/03/17 07:30 POC Glucometer 97 UNITS (80-120) 10/04/17 11:25 Random Glucose 100 mg/dL (74-106) 10/04/17 06:00 Hemoglobin A1c % 5.6 % (4.8-6.0) D 10/02/17 06:00 Lactic Acid 1.6 mmol/L (0.0-2.0) 10/01/17 10:35 Calcium 7.9 mg/dL (8.5-10.1) L 10/04/17 06:00 Phosphorus 2.7 mg/dL (2.5-4.9) 10/04/17 06:00 Magnesium 1.9 mg/dL (1.8-2.4) 10/04/17 06:00 Ferritin 84.733 ng/ml (16.4-293.9) 10/04/17 06:00 Total Bilirubin 1.9 mg/dL (0.2-1.0) H D 10/03/17 07:30 AST 33 U/L (15-37) 10/03/17 07:30 ALT 20 U/L (12-78) 10/03/17 07:30 Alkaline Phosphatase 129 U/L (45-117) H 10/03/17 07:30 Troponin I 0.03 ng/ml (0.00-0.05) D 09/30/17 22:00 Total Protein 6.9 g/dl (6.4-8.2) 10/03/17 07:30 Albumin 2.7 g/dl (3.4-5.0) L D 10/03/17 07:30 Vitamin B12 1080 pg/ml (180-914) H D 10/04/17 06:00 Serum Folate 38 ng/ml (3.1-17.5) H 10/04/17 06:00 TSH 0.85 uIU/ml (0.358-3.74) D 10/04/17 06:00 Free T4 1.39 ng/dl (0.76-1.16) H 10/04/17 06:00 Urine Color Dkyellow 09/30/17 16:39 Urine Appearance Clear 09/30/17 16:39 Urine pH 5.0 (5.0-8.0) 09/30/17 16:39 Ur Specific [place] 1.016 (1.001-1.035) 09/30/17 16:39 Urine Protein Negative (NEGATIVE) 09/30/17 16:39 Urine Glucose (UA) Negative (NEGATIVE) 09/30/17 16:39 Urine Ketones Negative (NEGATIVE) 09/30/17 16:39 Urine Blood Negative (NEGATIVE) 09/30/17 16:39 Urine Nitrite Negative (NEGATIVE) 09/30/17 16:39 Urine Bilirubin Negative (<2.0 mg/dL) 09/30/17 16:39 Urine Urobilinogen 2.0 mg/dL (0.2-1.0) 09/30/17 16:39 Ur Leukocyte Esterase Negative (NEGATIVE) 09/30/17 16:39 U Random Total Protein 13 mg/dl (5-11.9) H 10/01/17 15:25 Ur Random Sodium 59 MMOL/L 10/01/17 15:25 Ur Random Urea Nitrogn 460 mg/dL 10/01/17 15:25 Urine Creatinine 49.9 mg/dL (20-370) 10/01/17 15:25 Blood Type A POSITIVE 10/01/17 14:35 Antibody Screen Negative 10/01/17 14:35 Crossmatch See Detail 10/01/17 14:35 Imaging - Results Cat Scan: Report Reviewed Ultrasound: Report Reviewed Problem List - Problems (1) Hepatocellular carcinoma Code(s): C22.0 - LIVER CELL CARCINOMA (2) 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 Code(s): K75.81 - NONALCOHOLIC STEATOHEPATITIS (HERNANDEZ); K74.60 - UNSPECIFIED CIRRHOSIS OF LIVER (3) Ascites Code(s): R18.8 - OTHER ASCITES Assessment/Plan A 57-year-old gentleman with advanced diabetes mellitus, liver cirrhosis and hepatocellular carcinoma. Moderate, asymptomatic ascites. No evidence of SBP. Without actual diagnostic paracentesis I suspect the ascites is multifactorial (liver cirrhosis, hepatocellular carcinoma). Continue current medications. Add and titrate lactulose to 3-4 bowel movements per day. Close monitoring for signs and symptoms of SBP especially in presence of active infection elsewhere in the body. Diabetic diet. Discussed with patient in detail. Will follow.
--- NOTE | 2017-10-04 16:28 | PN ---
Progress Note (short form) - Note Progress Note: Left foot wound - managed by Podiatry LLE: dopplerable pt and dp Going to OR tonight for left foot debridement after 5PM.
--- NOTE | 2017-10-04 17:45 | PN ---
Progress Note (short form) - Note Progress Note: Renal Follow up for SHANEKA Pt seen and examined at the bedside no acute complaints no sob, chest pain, fever, chills making urine Vital Signs Temperature 98.1 F 10/04/17 17:16 Pulse Rate 50 L 10/04/17 17:16 Respiratory Rate 18 10/04/17 17:16 Blood Pressure 153/74 10/04/17 17:16 O2 Sat by Pulse Oximetry (%) 98 10/04/17 09:00 Intake & Output 10/01/17 10/02/17 10/03/17 10/04/17 23:59 23:59 23:59 23:59 Intake Total 2925 2695 1670 100 Output Total 7208 817 5055 1800 Balance 1275 1895 120 -1700 Weight 111.13 kg NAD MMM bradycardic, no M/R CTA + ascities + trace LE edema CBC, BMP 10/04/17 06:00 10/04/17 06:00 Current Medications Acetaminophen (Tylenol -) 650 mg PO Q4H PRN PRN Reason: FEVER Last Admin: 10/02/17 08:06 Dose: 650 mg Aspirin (Asa -) 81 mg PO DAILY J CARLOS Last Admin: 10/04/17 11:05 Dose: 81 mg Atorvastatin Calcium (Lipitor -) 10 mg PO HS [facility] Last Admin: 10/03/17 22:06 Dose: 10 mg Collagenase (Santyl -) 1 applic TP DAILY [facility] Last Admin: 10/04/17 11:19 Dose: Not Given Heparin Sodium (Porcine) (Heparin -) 5,000 unit SQ TID [facility] Last Admin: 10/04/17 13:44 Dose: Not Given Piperacillin Sod/Tazobactam (Sod 3.375 gm/ Sodium Chloride) 100 mls @ 200 mls/ hr IVPB Q8H-IV J CARLOS PRN Reason: Protocol Last Admin: 10/04/17 10:46 Dose: 200 mls/hr Insulin Aspart (Novolog Vial Sliding Scale -) 1 vial SQ ACHS J CARLOS PRN Reason: Protocol Last Admin: 10/04/17 16:57 Dose: Not Given Insulin Detemir (Levemir Vial) 25 units SQ AM J [facility] Last Admin: 10/04/17 06:31 Dose: Not Given Insulin Detemir (Levemir Vial) 10 units SQ HS [facility] Last Admin: 10/03/17 22:05 Dose: 10 unit Lactobacillus Acidophilus (Bacid -) 1 tab PO BID [facility] Last Admin: 10/04/17 11:06 Dose: 1 tab Midodrine (Proamatine -) 5 mg PO TID-MID [facility] Last Admin: 10/04/17 17:29 Dose: Not Given Multivitamins/Minerals/Vitamin C (Tab-A-Vit -) 1 tab PO DAILY [facility] Last Admin: 10/04/17 11:05 Dose: 1 tab Nadolol (Corgard -) 20 mg PO DAILY [facility] Last Admin: 10/04/17 11:12 Dose: Not Given Pantoprazole Sodium (Protonix -) 40 mg PO DAILY [facility] Last Admin: 10/04/17 11:06 Dose: 40 mg Ranolazine (Ranexa -) 1,000 mg PO BID [facility] Last Admin: 10/04/17 11:06 Dose: 1,000 mg Rifaximin (Xifaxan -) 550 mg PO BID [facility] Last Admin: 10/04/17 11:08 Dose: 550 mg Tramadol HCl (Ultram -) 50 mg PO Q8H PRN PRN Reason: PAIN LEVEL 6-10 57 year old gentleman with PMhx of Hepatic Ca s/p radiation wit stigmata of liver disease , DM, Anemia, Hypertertension, HLD, CVA, Gastritis presented with infected left foot now s/p amputation with SHANEKA. #SHANEKA (baseline Cr 1.3) secondary to ATN/HRS #LE gangrene/PVD/Ischemia/Osteomylitis #Hx of Hepatic Ca #hx of hypertension, now hypotensive #Anemia/Thrombocytopenia Renal function improved and stable off IVF Trend BUN/Cr and electrolytes ID and Podiatry follow up Trend CBC Anton Faith DO
[2017-10-04] MEDS ORDERED: LIDOCAINE HCL 1%, 10 MG/ML (20ML VIAL) INF ONE (18:14)
[2017-10-04] MEDS ORDERED: ACETAMINOPHEN 325 MG TABLET (FP) PO PRN (18:29)
[2017-10-04] MEDS ORDERED: ONDANSETRON 4 MG/2 ML VIAL IVPUSH PRN (19:20)
--- NOTE | 2017-10-04 19:25 | OP ---
DATE OF OPERATION: 10/04/2017 PREOPERATIVE DIAGNOSIS: Left foot diabetic foot infection. POSTOPERATIVE DIAGNOSIS: Left foot diabetic foot infection. PROCEDURE: Left foot debridement and lavage. SURGEON: Beka Aguirre DPM ANESTHESIA: IV sedation with local. ESTIMATED BLOOD LOSS: Minimal. PATHOLOGY: None. COMPLICATIONS: None. The patient was brought to the operating room and placed in the operating table in the supine position. I elected to not use a tourniquet during the course of the procedure. Following induction of IV sedation, local anesthesia was achieved utilizing 8 mL of 2% lidocaine plain. The left foot was scrubbed, prepped and draped in the usual sterile fashion. Attention was directed to the left lateral 5th ray, where a post-surgical diabetic foot ulcer was visualized and appreciated. I began by performing an excisional debridement of all devitalized and fibrotic tissue to the level of subcutaneous tissue utilizing a sterile 15 and scissors. All devitalized tissue was removed until there was healthy granular tissue present. Next, the surgical site was copiously irrigated with sterile saline mixed with bacitracin in a pulse lavage fashion, approximately 1000 mL. Once the surgical site was appropriately irrigated. Retention sutures were applied to the proximal aspect of the site overlying the 5th metatarsal bone. Following conclusion of the procedure, the surgical site was packed with 1/4-inch iodoform packing and the surgical site was covered with Xeroform followed by a sterile compressive dressing consisting of sterile gauze, Kerlix and an Mook wrap. The patient tolerated the procedure and anesthesia well without complications. He was transferred from the operating room to the recovery unit with vital signs stable and neuro-vasculature intact to the left foot. SYDNEY RONDON/[id number] cc: [facility]
[2017-10-04] MEDS ORDERED: INSULIN (NOVOLOG) ASPART 100 UNITS/ML 10ML VIAL ONE (21:17)
[2017-10-04] MEDS: ATORVASTATIN CA 10 MG TABLET (FP) PO SCH (21:51)
[2017-10-04] MEDS: INSULIN (LEVEMIR) 100 UNITS/ML UNITS SQ SCH (21:53)
[2017-10-04] MEDS: LACTATED RINGERS SOLUTION 1,000 ML IV SCH (22:03)
[2017-10-05] MEDS ORDERED: SODIUM CHLORIDE 100 ML IVPB ONE ×3 (01:15→18:26)
[2017-10-05] MEDS ORDERED: PIPERACILLIN/TAZOBACTAM 3.375 GM VIAL IVPB ONE ×3 (01:15→18:26)
[2017-10-05] MEDS: PIPERACILLIN/TAZOB 3.375 GM 3.375 GM in SODIUM CHLORIDE 100 ML IVPB SCH ×3 (02:03→18:27)
[2017-10-05] MEDS ORDERED: PT OWN MED DRAWER 7, Y5N ONE ×3 (08:01→21:09)
[2017-10-05 08:06] LABS: ANION GAP 6 (8-16); BLOOD UREA NITROGEN 19 mg/dL (7-18); CALCIUM 7.7 mg/dL (8.5-10.1); CHLORIDE 109 mmol/L (98-107); CO2 24 mmol/L (21-32); CREATININE 1.2 mg/dL (0.7-1.3); GLUCOSE,RANDOM 145 mg/dL (74-106); PHOSPHOROUS 2.7 mg/dL (2.5-4.9); POTASSIUM 4.3 mmol/L (3.5-5.1); SODIUM 139 mmol/L (136-145)
[2017-10-05 08:12] LABS: SERUM IRON SATURATION 26 % (15-55); TOTAL IRON BINDING CAPACITY 170 ug/dL (250-450); UIBC 126 ug/dL (111-343)
[2017-10-05] MEDS: INSULIN SLIDING SCALE (NOVOLOG) 1 VIAL SQ SCH ×4 (08:23→22:22)
[2017-10-05] MEDS: HEPARIN NA (PORCINE) 5,000 UNITS/ML 1ML VIAL SQ SCH ×3 (08:23→22:21)
[2017-10-05] MEDS: INSULIN (LEVEMIR) 100 UNITS/ML UNITS SQ SCH ×2 (08:23→22:22)
--- NOTE | 2017-10-05 10:02 | PN ---
Progress Note, Physician History of Present Illness: No acute events overnight. Clinically the same. No fever, chills, abdominal pain. Tolerating current diet. Does not want to take lactulose while hospitalized. - Current Medication List Current Medications: Active Medications Acetaminophen (Tylenol -) 650 mg PO Q4H PRN PRN Reason: FEVER Aspirin (Asa -) 81 mg PO DAILY [facility] Atorvastatin Calcium (Lipitor -) 10 mg PO HS [facility] Last Admin: 10/04/17 21:51 Dose: 10 mg Collagenase (Santyl -) 1 applic TP DAILY [facility] Fentanyl (Sublimaze Injection -) 25 mcg IVPUSH [id number] PRN PRN Reason: PAIN-PACU ORDER X 4 DOSES ONLY Heparin Sodium (Porcine) (Heparin -) 5,000 unit SQ TID [facility] Last Admin: 10/05/17 08:23 Dose: Not Given Piperacillin Sod/Tazobactam (Sod 3.375 gm/ Sodium Chloride) 100 mls @ 200 mls/ hr IVPB Q8H-IV [facility]; Protocol Last Admin: 10/05/17 02:03 Dose: 200 mls/hr Lactated Ringer's (Lactated Ringers Solution) 1,000 mls @ 125 mls/hr IV ASDIR [facility] Last Admin: 10/04/17 22:03 Dose: 125 mls/hr Insulin Aspart (Novolog Vial Sliding Scale -) 1 vial SQ ACHS [facility]; Protocol Last Admin: 10/05/17 08:23 Dose: Not Given Insulin Detemir (Levemir Vial) 25 units SQ AM [facility] Last Admin: 10/05/17 08:23 Dose: Not Given Insulin Detemir (Levemir Vial) 10 units SQ HS [facility] Last Admin: 10/04/17 21:53 Dose: 10 unit Lactobacillus Acidophilus (Bacid -) 1 tab PO BID [facility] Last Admin: 10/04/17 21:51 Dose: 1 tab Midodrine (Proamatine -) 5 mg PO TID-MID [facility] Multivitamins/Minerals/Vitamin C (Tab-A-Vit -) 1 tab PO DAILY [facility] Nadolol (Corgard -) 20 mg PO DAILY [facility] Ondansetron HCl (Zofran Injection) 4 mg IVPUSH Q6H PRN PRN Reason: NAUSEA AND/OR VOMITING Pantoprazole Sodium (Protonix -) 40 mg PO DAILY [facility] Ranolazine (Ranexa -) 1,000 mg PO BID [facility] Last Admin: 10/04/17 21:51 Dose: 1,000 mg Rifaximin (Xifaxan -) 550 mg PO BID [facility] Last Admin: 10/04/17 21:51 Dose: 550 mg Tramadol HCl (Ultram -) 50 mg PO Q8H PRN PRN Reason: PAIN LEVEL 6-10 - Objective Vital Signs: Vital Signs Temperature 98.3 F 10/05/17 01:00 Pulse Rate 62 10/05/17 01:00 Respiratory Rate 18 10/05/17 01:00 Blood Pressure 128/71 10/05/17 01:00 O2 Sat by Pulse Oximetry (%) 98 10/04/17 20:20 Constitutional: Yes: Well Nourished, No Distress, Calm Gastrointestinal: Yes: Soft, Ascites. No: Tenderness, Vomiting Neurological: Yes: Alert, Oriented. No: Asterixis, Tremors Labs: CBC, BMP 10/04/17 06:00 10/05/17 06:00 INR, PTT INR 1.27 (0.82-1.09) H 10/01/17 06:00 Laboratory Last Values WBC 4.6 K/mm3 (4.0-10.0) 10/04/17 06:00 RBC 2.49 M/mm3 (4.00-5.60) L 10/04/17 06:00 Hgb 8.3 GM/dL (11.7-16.9) L 10/04/17 06:00 Hct 23.6 % (35.4-49) L 10/04/17 06:00 MCV 94.7 fl (80-96) 10/04/17 06:00 MCH 33.5 pg (25.7-33.7) 10/04/17 06:00 MCHC 35.4 g/dl (32.0-35.9) 10/04/17 06:00 RDW 16.4 % (11.9-15.9) H 10/04/17 06:00 Plt Count 74 K/MM3 (134-434) L 10/04/17 06:00 MPV 7.4 fl (7.5-11.1) L 10/04/17 06:00 Total Counted 100 10/03/17 07:30 Neutrophils % 67.2 % (42.8-82.8) D 10/04/17 06:00 Neutrophils % (Manual) 72.0 % (42.8-82.8) 10/03/17 07:30 Band Neutrophils % 6.0 % 10/03/17 07:30 Lymphocytes % 15.8 % (8-40) D 10/04/17 06:00 Lymphocytes % (Manual) 8.0 % (8-40) D 10/03/17 07:30 Monocytes % 14.8 % (3.8-10.2) H D 10/04/17 06:00 Monocytes % (Manual) 9 % (3.8-10.2) 10/03/17 07:30 Eosinophils % 1.6 % (0-4.5) D 10/04/17 06:00 Eosinophils % (Manual) 3.0 % (0-4.5) D 10/03/17 07:30 Basophils % 0.6 % (0-2.0) 10/04/17 06:00 Basophils % (Manual) 0.0 % (0-2.0) 10/03/17 07:30 Myelocytes % (Man) 1 % (0-2) D 10/03/17 07:30 Promyelocytes % (Man) 0 % (0-2) 10/03/17 07:30 Blast Cells % (Manual) 0 % (0-0) 10/03/17 07:30 Nucleated RBC % 0 % (0-0) 10/04/17 06:00 Metamyelocytes 0 % (0-2) 10/03/17 07:30 Hypochromia 0 10/03/17 07:30 Toxic Granulation 0 10/03/17 07:30 Dohle Bodies 0 10/03/17 07:30 Platelet Estimate Decreased 10/03/17 07:30 Platelet Comment Present 10/03/17 07:30 Polychromasia 0 10/03/17 07:30 Poikilocytosis 0 10/03/17 07:30 Basophilic Stippling 0 10/03/17 07:30 Anisocytosis 0 10/03/17 07:30 Microcytosis 0 10/03/17 07:30 Macrocytosis 0 10/03/17 07:30 Spherocytes 0 10/03/17 07:30 Sickle Cells 0 10/03/17 07:30 Target Cells 0 10/03/17 07:30 Tear Drop Cells 0 10/03/17 07:30 Ovalocytes 0 10/03/17 07:30 Stomatocytes 0 10/03/17 07:30 Helmet Cells 0 10/03/17 07:30 [place] Bodies 0 10/03/17 07:30 [place] Rings 0 10/03/17 07:30 [place] Cells 0 10/03/17 07:30 Acanthocytes (Spur) 0 10/03/17 07:30 Rouleaux 0 10/03/17 07:30 Fragmented RBCs 0 10/03/17 07:30 Schistocytes 0 10/03/17 07:30 PT with INR 14.30 SEC (9.7-13.0) H 10/01/17 06:00 INR 1.27 (0.82-1.09) H 10/01/17 06:00 PTT (Actin FS) 29.9 SECONDS (26.9-34.4) 09/30/17 14:01 VBG pH 7.31 (7.32-7.42) L 09/30/17 14:01 POC VBG pCO2 47.6 mmHg (38-52) 09/30/17 14:01 POC VBG pO2 13.7 mmHg (28-48) L* 09/30/17 14:01 Mixed VBG HCO3 23.1 meq/L (19-25) 09/30/17 14:01 Sodium 139 mmol/L (136-145) 10/05/17 06:00 Potassium 4.3 mmol/L (3.5-5.1) 10/05/17 06:00 Chloride 109 mmol/L (98-107) H 10/05/17 06:00 Carbon Dioxide 24 mmol/L (21-32) 10/05/17 06:00 Anion Gap 6 (8-16) L 10/05/17 06:00 BUN 19 mg/dL (7-18) H 10/05/17 06:00 Creatinine 1.2 mg/dL (0.7-1.3) 10/05/17 06:00 Creat Clearance w eGFR 47.90 (>60) 10/03/17 07:30 POC Glucometer 169 UNITS (80-120) 10/04/17 21:48 Random Glucose 145 mg/dL (74-106) H D 10/05/17 06:00 Hemoglobin A1c % 5.6 % (4.8-6.0) D 10/02/17 06:00 Lactic Acid 1.6 mmol/L (0.0-2.0) 10/01/17 10:35 Calcium 7.7 mg/dL (8.5-10.1) L 10/05/17 06:00 Phosphorus 2.7 mg/dL (2.5-4.9) 10/05/17 06:00 Magnesium 2.0 mg/dL (1.8-2.4) 10/05/17 06:00 Iron 44 ug/dL (38-169) 10/04/17 06:00 TIBC 170 ug/dL (250-450) L 10/04/17 06:00 Iron Saturation 26 % (15-55) 10/04/17 06:00 Ferritin 84.733 ng/ml (16.4-293.9) 10/04/17 06:00 Total Bilirubin 1.9 mg/dL (0.2-1.0) H D 10/03/17 07:30 AST 33 U/L (15-37) 10/03/17 07:30 ALT 20 U/L (12-78) 10/03/17 07:30 Alkaline Phosphatase 129 U/L (45-117) H 10/03/17 07:30 Troponin I 0.03 ng/ml (0.00-0.05) D 09/30/17 22:00 Total Protein 6.9 g/dl (6.4-8.2) 10/03/17 07:30 Albumin 2.7 g/dl (3.4-5.0) L D 10/03/17 07:30 Vitamin B12 1080 pg/ml (180-914) H D 10/04/17 06:00 Serum Folate 38 ng/ml (3.1-17.5) H 10/04/17 06:00 TSH 0.85 uIU/ml (0.358-3.74) D 10/04/17 06:00 Free T4 1.39 ng/dl (0.76-1.16) H 10/04/17 06:00 Urine Color Dkyellow 09/30/17 16:39 Urine Appearance Clear 09/30/17 16:39 Urine pH 5.0 (5.0-8.0) 09/30/17 16:39 Ur Specific [place] 1.016 (1.001-1.035) 09/30/17 16:39 Urine Protein Negative (NEGATIVE) 09/30/17 16:39 Urine Glucose (UA) Negative (NEGATIVE) 09/30/17 16:39 Urine Ketones Negative (NEGATIVE) 09/30/17 16:39 Urine Blood Negative (NEGATIVE) 09/30/17 16:39 Urine Nitrite Negative (NEGATIVE) 09/30/17 16:39 Urine Bilirubin Negative (<2.0 mg/dL) 09/30/17 16:39 Urine Urobilinogen 2.0 mg/dL (0.2-1.0) 09/30/17 16:39 Ur Leukocyte Esterase Negative (NEGATIVE) 09/30/17 16:39 U Random Total Protein 13 mg/dl (5-11.9) H 10/01/17 15:25 Ur Random Sodium 59 MMOL/L 10/01/17 15:25 Ur Random Urea Nitrogn 460 mg/dL 10/01/17 15:25 Urine Creatinine 49.9 mg/dL (20-370) 10/01/17 15:25 Blood Type A POSITIVE 10/01/17 14:35 Antibody Screen Negative 10/01/17 14:35 Crossmatch See Detail 10/01/17 14:35 Problem List - Problems (1) Hepatocellular carcinoma Code(s): C22.0 - LIVER CELL CARCINOMA (2) 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 Code(s): K75.81 - NONALCOHOLIC STEATOHEPATITIS (HERNANDEZ); K74.60 - UNSPECIFIED CIRRHOSIS OF LIVER (3) Ascites Code(s): R18.8 - OTHER ASCITES Assessment/Plan Status post left foot debridement yesterday. No signs of SBP. Close monitoring for signs and symptoms of SBP especially in presence of active infection elsewhere in the body. Diabetic diet. Discussed with patient in detail. Will follow.
[2017-10-05] MEDS ORDERED: RANOLAZINE E.R. 500 MG TABLET (FP) ONE ×2 (10:34→21:09)
[2017-10-05] MEDS: PANTOPRAZOLE 40 MG TABLET (FP) PO SCH (10:38)
[2017-10-05] MEDS: MULTIVITAMINS (DAILY MVI) TABLET (FP) PO SCH (10:39)
[2017-10-05] MEDS: RIFAXIMIN 550 MG TABLET (UD) PO SCH ×2 (10:39→22:30)
[2017-10-05] MEDS: LACTOBACILLUS ACIDOPHILUS 1 TABLET PO SCH ×2 (10:39→22:21)
[2017-10-05] MEDS: RANOLAZINE E.R. 1,000 MG TABLET (FP) PO SCH ×2 (10:40→22:24)
[2017-10-05] MEDS: MIDODRINE HCL 5 MG TABLET PO SCH ×3 (10:42→18:31)
[2017-10-05] MEDS: ASPIRIN 81 MG CHEWABLE TABLETS PO SCH (10:42)
[2017-10-05] MEDS: NADOLOL 20 MG TABLET (FP) PO SCH ×2 (10:43→11:03)
--- NOTE | 2017-10-05 11:22 | PN ---
Progress Note, Physician Chief Complaint: Left diabetic foot ulcer History of Present Illness: NAD Seen by ID and nephrology IV abx Also seen by Podiatry, going for washout today in the afternoon - Current Medication List Current Medications: Active Medications Acetaminophen (Tylenol -) 650 mg PO Q4H PRN PRN Reason: FEVER Aspirin (Asa -) 81 mg PO DAILY [facility] Last Admin: 10/05/17 10:42 Dose: 81 mg Atorvastatin Calcium (Lipitor -) 10 mg PO HS [facility] Last Admin: 10/04/17 21:51 Dose: 10 mg Collagenase (Santyl -) 1 applic TP DAILY [facility] Fentanyl (Sublimaze Injection -) 25 mcg IVPUSH [id number] PRN PRN Reason: PAIN-PACU ORDER X 4 DOSES ONLY Heparin Sodium (Porcine) (Heparin -) 5,000 unit SQ TID [facility] Last Admin: 10/05/17 08:23 Dose: Not Given Piperacillin Sod/Tazobactam (Sod 3.375 gm/ Sodium Chloride) 100 mls @ 200 mls/ hr IVPB Q8H-IV [facility]; Protocol Last Admin: 10/05/17 10:45 Dose: 200 mls/hr Lactated Ringer's (Lactated Ringers Solution) 1,000 mls @ 125 mls/hr IV ASDIR [facility] Last Admin: 10/04/17 22:03 Dose: 125 mls/hr Insulin Aspart (Novolog Vial Sliding Scale -) 1 vial SQ ACHS [facility]; Protocol Last Admin: 10/05/17 08:23 Dose: Not Given Insulin Detemir (Levemir Vial) 25 units SQ AM [facility] Last Admin: 10/05/17 08:23 Dose: Not Given Insulin Detemir (Levemir Vial) 10 units SQ HS [facility] Last Admin: 10/04/17 21:53 Dose: 10 unit Lactobacillus Acidophilus (Bacid -) 1 tab PO BID [facility] Last Admin: 10/05/17 10:39 Dose: 1 tab Midodrine (Proamatine -) 5 mg PO TID-MID [facility] Last Admin: 10/05/17 10:42 Dose: 5 mg Multivitamins/Minerals/Vitamin C (Tab-A-Vit -) 1 tab PO DAILY [facility] Last Admin: 10/05/17 10:39 Dose: 1 tab Nadolol (Corgard -) 20 mg PO DAILY [facility] Last Admin: 10/05/17 11:03 Dose: Not Given Ondansetron HCl (Zofran Injection) 4 mg IVPUSH Q6H PRN PRN Reason: NAUSEA AND/OR VOMITING Pantoprazole Sodium (Protonix -) 40 mg PO DAILY [facility] Last Admin: 10/05/17 10:38 Dose: 40 mg Ranolazine (Ranexa -) 1,000 mg PO BID [facility] Last Admin: 10/05/17 10:40 Dose: 1,000 mg Rifaximin (Xifaxan -) 550 mg PO BID [facility] Last Admin: 10/05/17 10:39 Dose: 550 mg Tramadol HCl (Ultram -) 50 mg PO Q8H PRN PRN Reason: PAIN LEVEL 6-10 - Objective Vital Signs: Vital Signs Temperature 98 F 10/05/17 11:10 Pulse Rate 55 L 10/05/17 11:10 Respiratory Rate 18 10/05/17 11:10 Blood Pressure 127/71 10/05/17 11:10 O2 Sat by Pulse Oximetry (%) 98 10/04/17 20:20 Constitutional: Yes: Well Nourished, No Distress, Calm Cardiovascular: Yes: Regular Rate and Rhythm Respiratory: Yes: Regular Gastrointestinal: Yes: Normal Bowel Sounds, Ascites Wound/Incision: Yes: Dressing Dry and Intact Neurological: Yes: Alert, Oriented Psychiatric: Yes: Alert, Oriented Labs: CBC, BMP 10/04/17 06:00 10/05/17 06:00 INR, PTT INR 1.27 (0.82-1.09) H 10/01/17 06:00 Problem List - Problems (1) Diabetes type 2, uncontrolled Assessment/Plan: -BGM -Diabetic diet -A1c 5.6 -Insulin long and short acting, adjust by endocrinology -RD consult -Endocrinology on board Code(s): E11.65 - TYPE 2 DIABETES MELLITUS WITH HYPERGLYCEMIA Qualifiers: Diabetes mellitus complication status: with circulatory complication Diabetes mellitus complication detail: with other circulatory complications (2) CAD (coronary artery disease) Assessment/Plan: -aspirin 81 mg po daily -Lipitor 10 mg po HS -Seen by cardiology -Nadolol on hold for bradycardia -On Ranexa 550 mg po BID Code(s): I25.10 - ATHSCL HEART DISEASE OF [place] CORONARY ARTERY W/O ANG PCTRS (3) Anemia Assessment/Plan: -2/2 CKD chronic disease -received 1 unit PRBC -normal transfusion parameters -Stool Guaiac pending -Iron profile normal -thyroid profile, B 12, folate okay -labs in AM Code(s): D64.9 - ANEMIA, UNSPECIFIED (4) Ascites Assessment/Plan: -On U/S abdomen- moderate ascites -Chronic -GI consult Code(s): R18.8 - OTHER ASCITES Qualifiers: Ascites type: other type Qualified Code(s): R18.8 - Other ascites (5) Cellulitis of toe, left Assessment/Plan: -ID consult appreciated -Wound culture: Microbiology 09/30/17 Unknown Gram Stain - Final Bone Tissue Culture - Final Enterobacter Cloacae Enterococcus Faecalis Anaerobic Culture - Final Prevotella Bivia 10/01/17 Unknown Gram Stain - Final Toe - Left Fifth Wound Culture - Preliminary Enterobacter Cloacae Pending Organism 09/30/17 14:01 Blood Culture - Final Blood - Peripheral Venous Prevotella Bivia 10/02/17 12:15 Blood Culture - Preliminary Blood - Peripheral Venous NO GROWTH OBTAINED AFTER 24 HOURS, INCUBATION TO CONTINUE FOR 4 DAYS. 10/02/17 11:41 Blood Culture - Preliminary Blood - Peripheral Venous NO GROWTH OBTAINED AFTER 24 HOURS, INCUBATION TO CONTINUE FOR 4 DAYS. -On IV Zosyn 3.375 Q8H -Podiatry consult -debridement done yesterday by Podiatry -dressing to be changed by podiatry -Awaiting gram stain to identify organism Code(s): L03.032 - CELLULITIS OF LEFT TOE (6) SHANEKA (acute kidney injury) Assessment/Plan: -Seen by Nephrology -Likely secondary to use of JOSI+NSAID's -hold BP meds -Avoid usage of nsaid's at this time -midodrine 5 mg po TID-MID -Labs in AM -Cardiology to decide when to start Nadolol Code(s): N17.9 - ACUTE KIDNEY FAILURE, UNSPECIFIED Assessment/Plan see problem list -DVT prophylaxis
--- NOTE | 2017-10-05 11:51 | PN ---
Progress Note (short form) - Note Progress Note: Podiatry F/U; Seen/evaluated at bedside, NAD. Pain controlled, denies F/V/N/C/SOB/CP. Afebrile, VSS. S/p L foot debridement/lavage POD#1. GEORGE: L foot: dressing C/D/i, no active bleeding. Post-surgical wound lateral fifth ray with mixed fibrogranular base, probes to capsule, no purulence, no fluctuance, no periwound erythema, no soft tissue crepitus, no ascending cellulitis, no signs of active infection. Minimal tenderness to palpation. WBC: 4.6 OR Cx: E. Cloacae, E. Faecalis, Prevotella Imp: 57 year old IDDM M s/p L foot debridement and lavage POD#1 1. IV abx per ID 2. Saline irrigation and saline wet to dry L foot 3. Partial WB L heel 4. Will follow Angel Aguirre DPM
--- NOTE | 2017-10-05 12:54 | PN ---
Progress Note, Physician History of Present Illness: doing well no issues - Current Medication List Current Medications: Active Medications Acetaminophen (Tylenol -) 650 mg PO Q4H PRN PRN Reason: FEVER Aspirin (Asa -) 81 mg PO DAILY [facility] Last Admin: 10/05/17 10:42 Dose: 81 mg Atorvastatin Calcium (Lipitor -) 10 mg PO HS [facility] Last Admin: 10/04/17 21:51 Dose: 10 mg Collagenase (Santyl -) 1 applic TP DAILY [facility] Fentanyl (Sublimaze Injection -) 25 mcg IVPUSH [id number] PRN PRN Reason: PAIN-PACU ORDER X 4 DOSES ONLY Heparin Sodium (Porcine) (Heparin -) 5,000 unit SQ TID [facility] Last Admin: 10/05/17 08:23 Dose: Not Given Piperacillin Sod/Tazobactam (Sod 3.375 gm/ Sodium Chloride) 100 mls @ 200 mls/ hr IVPB Q8H-IV [facility]; Protocol Last Admin: 10/05/17 10:45 Dose: 200 mls/hr Lactated Ringer's (Lactated Ringers Solution) 1,000 mls @ 125 mls/hr IV ASDIR [facility] Last Admin: 10/04/17 22:03 Dose: 125 mls/hr Insulin Aspart (Novolog Vial Sliding Scale -) 1 vial SQ ACHS [facility]; Protocol Last Admin: 10/05/17 08:23 Dose: Not Given Insulin Detemir (Levemir Vial) 25 units SQ AM [facility] Last Admin: 10/05/17 08:23 Dose: Not Given Insulin Detemir (Levemir Vial) 10 units SQ HS [facility] Last Admin: 10/04/17 21:53 Dose: 10 unit Lactobacillus Acidophilus (Bacid -) 1 tab PO BID [facility] Last Admin: 10/05/17 10:39 Dose: 1 tab Midodrine (Proamatine -) 5 mg PO TID-MID [facility] Last Admin: 10/05/17 10:42 Dose: 5 mg Multivitamins/Minerals/Vitamin C (Tab-A-Vit -) 1 tab PO DAILY [facility] Last Admin: 10/05/17 10:39 Dose: 1 tab Nadolol (Corgard -) 20 mg PO DAILY [facility] Last Admin: 10/05/17 11:03 Dose: Not Given Ondansetron HCl (Zofran Injection) 4 mg IVPUSH Q6H PRN PRN Reason: NAUSEA AND/OR VOMITING Pantoprazole Sodium (Protonix -) 40 mg PO DAILY [facility] Last Admin: 10/05/17 10:38 Dose: 40 mg Ranolazine (Ranexa -) 1,000 mg PO BID [facility] Last Admin: 10/05/17 10:40 Dose: 1,000 mg Rifaximin (Xifaxan -) 550 mg PO BID [facility] Last Admin: 10/05/17 10:39 Dose: 550 mg Tramadol HCl (Ultram -) 50 mg PO Q8H PRN PRN Reason: PAIN LEVEL 6-10 - Objective Vital Signs: Vital Signs Temperature 98 F 10/05/17 11:10 Pulse Rate 55 L 10/05/17 11:10 Respiratory Rate 18 10/05/17 11:10 Blood Pressure 127/71 10/05/17 11:10 O2 Sat by Pulse Oximetry (%) 98 10/04/17 20:20 Constitutional: Yes: No Distress, Calm Cardiovascular: Yes: Regular Rate and Rhythm Respiratory: Yes: Regular, CTA Bilaterally Gastrointestinal: Yes: Normal Bowel Sounds, Soft Musculoskeletal: Yes: WNL Extremities: Yes: Other Wound/Incision: Yes: Dressing Dry and Intact Neurological: Yes: Alert, Oriented Psychiatric: Yes: Alert, Oriented Labs: CBC, BMP 10/04/17 06:00 10/05/17 06:00 INR, PTT INR 1.27 (0.82-1.09) H 10/01/17 06:00 Assessment/Plan Problem List - Problems (1) Controlled diabetes mellitus with diabetic peripheral angiopathy without gangrene, without long-term current use of insulin Code(s): E11.51 - TYPE 2 DIABETES W DIABETIC PERIPHERAL ANGIOPATH W/O GANGRENE (2) Diabetic ulcer of left foot Code(s): E11.621 - TYPE 2 DIABETES MELLITUS WITH FOOT ULCER; L97.529 - NON- PRESSURE CHRONIC ULCER OTH PRT LEFT FOOT W UNSP SEVERITY Qualifiers: Diabetic foot ulcer location: other Diabetes mellitus type: type 1 Non- pressure ulcer stage: with other severity Qualified Code(s): E10.621 - Type 1 diabetes mellitus with foot ulcer; L97.528 - Non-pressure chronic ulcer of other part of left foot with other specified severity; L97.528 - Non-pressure chronic ulcer of other part of left foot with other specified severity; L97.528 - Non-pressure chronic ulcer of other part of left foot with other specified severity; L97.528 - Non-pressure chronic ulcer of other part of left foot with other specified severity (3) Abdominal distension Code(s): R14.0 - ABDOMINAL DISTENSION (GASEOUS) (4) Abscess of external ear Code(s): H60.00 - ABSCESS OF EXTERNAL EAR, UNSPECIFIED EAR Qualifiers: Laterality: left Qualified Code(s): H60.02 - Abscess of left external ear (5) Anemia Code(s): D64.9 - ANEMIA, UNSPECIFIED (6) Ascites due to alcoholic cirrhosis Code(s): K70.31 - ALCOHOLIC CIRRHOSIS OF LIVER WITH ASCITES (7) Atherosclerosis Code(s): I70.90 - UNSPECIFIED ATHEROSCLEROSIS [place]ANE[place] LE gangrene/PVD/Ischemia/Osteomylitis Hx of Hepatic Ca Anemia/Thrombocytopenia plan patient stable no new issues continue current mgmt continue abx
[2017-10-05] MEDS: COLLAGENASE CLOSTRIDIUM HIST. 30 GRAMS TUBE TP SCH (12:55)
[2017-10-05] MEDS: LACTATED RINGERS SOLUTION 1,000 ML IV SCH ×2 (13:26→22:21)
--- NOTE | 2017-10-05 15:10 | PN ---
Progress Note (short form) - Note Progress Note: Anesthesia postop note 57 y/o m s/p MAC for I&D left foot POD#1, vss, aaox3, no complaints. No anesthesia complications.
--- NOTE | 2017-10-05 15:41 | PATH ---
Surgical Pathology Report Patient Name: JAYSON STRAUSS Med. Rec. #: [id number] /Age/Gender: 1960 (Age: 57) / M Account: [id number] Location: [facility] MED/SURG Taken: 10/03/2017 Received: 10/03/2017 Reported: 10/05/2017 Physicians: Norm Goncalves M.D. Specimen(s) Received A: LEFT 5TH TOE B: LEFT 5TH TOE METATARSAL HEAD RESECTION Clinical History Left fifth toe abscess Final Diagnosis A. LEFT 5TH TOE, AMPUTATION: AMBULATED TOE AND SEPARATE FRAGMENTS OF SKIN AND SOFT TISSUE SHOWING GANGRENOUS NECROSIS, ULCERATION, SEVERE ACUTE AND CHRONIC INFLAMMATION WITH ABSCESS FORMATION. BONE WITH ACUTE OSTEOMYELITIS. ACUTE OSTEOMYELITIS PRESENT AT THE BONE MARGIN. SKIN AND SOFT TISSUE MARGIN WITH FOCAL ULCERATION AND ABSCESS. B. LEFT 5TH TOE, METATARSAL HEAD, RESECTION: METATARSAL HEAD WITH ACUTE OSTEOMYELITIS. BONE MARGIN IS INVOLVED BY ACUTE OSTEOMYELITIS. Electronically Signed Lorne Perales M.D. Gross Description A. Received in formalin labeled "left fifth toe," is a 4.5 x 2.2 x 1.5 cm toe amputation specimen. The epidermal surface displays a 1.8 x 1.7 cm ulcerated lesion which appears to involve the skin and soft tissue margin. The lesion also appears to involve the underlying bone. Separately received within the same container is a 2.8 x 2.5 x 0.4 cm aggregate of multiple undesignated, necrotic skin and soft tissue fragments. Technical Expert sections are submitted in 4 cassettes as follows: 1-lesion with underlying bone, following decalcification; 2-bone margin, following decalcification; 3-skin and soft tissue margin; 4-separately received skin and soft tissue fragments. B. Received in formalin labeled "left fifth metatarsal," is a 2.2 x 1.7 x 1.5 cm portion of bone. The specimen displays smooth articular cartilage at one end and smooth, trabeculated bone at the opposing end, likely consistent with the true bone margin. Technical Expert sections are submitted in 2 cassettes as follows: 1-end of bone with articular cartilage, following decalcification; 2-probable true bone margin, following decalcification. 10/04/201710/04/2017
[2017-10-05] MEDS: traMADol HCL 50 MG TABLET PO PRN (15:56)
[2017-10-05] MEDS: ATORVASTATIN CA 10 MG TABLET (FP) PO SCH (22:21)
[2017-10-06] MEDS ORDERED: SODIUM CHLORIDE 100 ML IVPB ONE ×3 (01:05→18:04)
[2017-10-06] MEDS ORDERED: PIPERACILLIN/TAZOBACTAM 3.375 GM VIAL IVPB ONE ×3 (01:05→18:04)
[2017-10-06] MEDS: PIPERACILLIN/TAZOB 3.375 GM 3.375 GM in SODIUM CHLORIDE 100 ML IVPB SCH ×3 (01:15→18:13)
[2017-10-06] MEDS: HEPARIN NA (PORCINE) 5,000 UNITS/ML 1ML VIAL SQ SCH ×3 (06:23→21:59)
[2017-10-06] MEDS: INSULIN SLIDING SCALE (NOVOLOG) 1 VIAL SQ SCH ×4 (06:23→22:03)
[2017-10-06] MEDS: INSULIN (LEVEMIR) 100 UNITS/ML UNITS SQ SCH ×2 (06:29→22:03)
[2017-10-06] MEDS ORDERED: INSULIN (NOVOLOG) ASPART 100 UNITS/ML 10ML VIAL ONE (07:03)
[2017-10-06] MEDS ORDERED: RANOLAZINE E.R. 500 MG TABLET (FP) ONE ×2 (09:09→21:27)
[2017-10-06] MEDS ORDERED: PT OWN MED DRAWER 7, Y5N ONE (09:10)
[2017-10-06] MEDS: RIFAXIMIN 550 MG TABLET (UD) PO SCH ×2 (09:48→22:04)
[2017-10-06] MEDS: PANTOPRAZOLE 40 MG TABLET (FP) PO SCH (09:48)
[2017-10-06] MEDS: RANOLAZINE E.R. 1,000 MG TABLET (FP) PO SCH ×2 (09:48→22:06)
[2017-10-06] MEDS: MIDODRINE HCL 5 MG TABLET PO SCH ×3 (09:48→18:14)
[2017-10-06] MEDS: LACTOBACILLUS ACIDOPHILUS 1 TABLET PO SCH ×2 (09:49→22:05)
[2017-10-06] MEDS: ASPIRIN 81 MG CHEWABLE TABLETS PO SCH (09:50)
[2017-10-06] MEDS: MULTIVITAMINS (DAILY MVI) TABLET (FP) PO SCH (09:50)
--- NOTE | 2017-10-06 10:26 | PN ---
Progress Note, Physician Chief Complaint: Left diabetic foot ulcer History of Present Illness: NAD Seen by ID and nephrology IV abx Had debridement yesterday Wound cultures pending H/H stable - Current Medication List Current Medications: Active Medications Acetaminophen (Tylenol -) 650 mg PO Q4H PRN PRN Reason: FEVER Aspirin (Asa -) 81 mg PO DAILY [facility] Last Admin: 10/06/17 09:50 Dose: 81 mg Atorvastatin Calcium (Lipitor -) 10 mg PO HS [facility] Last Admin: 10/05/17 22:21 Dose: 10 mg Collagenase (Santyl -) 1 applic TP DAILY [facility] Last Admin: 10/05/17 12:55 Dose: Not Given Fentanyl (Sublimaze Injection -) 25 mcg IVPUSH [id number] PRN PRN Reason: PAIN-PACU ORDER X 4 DOSES ONLY Heparin Sodium (Porcine) (Heparin -) 5,000 unit SQ TID [facility] Last Admin: 10/06/17 06:23 Dose: 5,000 unit Piperacillin Sod/Tazobactam (Sod 3.375 gm/ Sodium Chloride) 100 mls @ 200 mls/ hr IVPB Q8H-IV [facility]; Protocol Last Admin: 10/06/17 09:47 Dose: 200 mls/hr Lactated Ringer's (Lactated Ringers Solution) 1,000 mls @ 125 mls/hr IV ASDIR [facility] Last Admin: 10/05/17 22:21 Dose: 125 mls/hr Insulin Aspart (Novolog Vial Sliding Scale -) 1 vial SQ ACHS [facility]; Protocol Last Admin: 10/06/17 06:23 Dose: Not Given Insulin Detemir (Levemir Vial) 25 units SQ AM [facility] Last Admin: 10/06/17 06:29 Dose: 25 unit Insulin Detemir (Levemir Vial) 10 units SQ HS [facility] Last Admin: 10/05/17 22:22 Dose: 10 unit Lactobacillus Acidophilus (Bacid -) 1 tab PO BID [facility] Last Admin: 10/06/17 09:49 Dose: 1 tab Midodrine (Proamatine -) 5 mg PO TID-MID [facility] Last Admin: 10/06/17 09:48 Dose: 5 mg Multivitamins/Minerals/Vitamin C (Tab-A-Vit -) 1 tab PO DAILY [facility] Last Admin: 10/06/17 09:50 Dose: 1 tab Nadolol (Corgard -) 20 mg PO DAILY [facility] Last Admin: 10/05/17 11:03 Dose: Not Given Ondansetron HCl (Zofran Injection) 4 mg IVPUSH Q6H PRN PRN Reason: NAUSEA AND/OR VOMITING Pantoprazole Sodium (Protonix -) 40 mg PO DAILY [facility] Last Admin: 10/06/17 09:48 Dose: 40 mg Ranolazine (Ranexa -) 1,000 mg PO BID [facility] Last Admin: 10/06/17 09:48 Dose: 1,000 mg Rifaximin (Xifaxan -) 550 mg PO BID [facility] Last Admin: 10/06/17 09:48 Dose: 550 mg Tramadol HCl (Ultram -) 50 mg PO Q8H PRN PRN Reason: PAIN LEVEL 6-10 Last Admin: 10/05/17 15:56 Dose: 50 mg - Objective Vital Signs: Vital Signs Temperature 97.9 F 10/06/17 10:00 Pulse Rate 50 L 10/06/17 10:00 Respiratory Rate 18 10/06/17 10:00 Blood Pressure 137/69 10/06/17 10:00 O2 Sat by Pulse Oximetry (%) 99 10/05/17 20:26 Constitutional: Yes: Well Nourished, No Distress, Calm Cardiovascular: Yes: Regular Rate and Rhythm Respiratory: Yes: Regular Gastrointestinal: Yes: Normal Bowel Sounds, Soft Musculoskeletal: Yes: WNL Edema: No Peripheral Pulses WNL: Yes Wound/Incision: Yes: Dressing Dry and Intact Neurological: Yes: Alert, Oriented Psychiatric: Yes: Alert, Oriented Labs: CBC, BMP 10/04/17 06:00 10/05/17 06:00 INR, PTT INR 1.27 (0.82-1.09) H 10/01/17 06:00 Problem List - Problems (1) Diabetes type 2, uncontrolled Assessment/Plan: -BGM -Diabetic diet -A1c 5.6 -Insulin long and short acting, adjust by endocrinology -RD consult -Endocrinology on board Code(s): E11.65 - TYPE 2 DIABETES MELLITUS WITH HYPERGLYCEMIA Qualifiers: Diabetes mellitus complication status: with circulatory complication Diabetes mellitus complication detail: with other circulatory complications (2) CAD (coronary artery disease) Assessment/Plan: -aspirin 81 mg po daily -Lipitor 10 mg po HS -Seen by cardiology -Nadolol on hold for bradycardia -On Ranexa 550 mg po BID Code(s): I25.10 - ATHSCL HEART DISEASE OF [place] CORONARY ARTERY W/O ANG PCTRS (3) Anemia Assessment/Plan: -2/2 CKD chronic disease -received 1 unit PRBC -normal transfusion parameters -Stool Guaiac positive -Iron profile normal -thyroid profile, B 12, folate okay -labs today- H/H stable Code(s): D64.9 - ANEMIA, UNSPECIFIED (4) Ascites Assessment/Plan: -On U/S abdomen- moderate ascites -Chronic -GI consult Code(s): R18.8 - OTHER ASCITES Qualifiers: Ascites type: other type Qualified Code(s): R18.8 - Other ascites (5) Cellulitis of toe, left Assessment/Plan: -ID consult appreciated -Wound culture: -On IV Zosyn 3.375 Q8H -Podiatry consult -debridement done yesterday by Podiatry -dressing changed podiatry -Awaiting gram stain to identify organism Code(s): L03.032 - CELLULITIS OF LEFT TOE (6) SHANEKA (acute kidney injury) Assessment/Plan: -Seen by Nephrology -Likely secondary to use of JOSI+NSAID's -hold BP meds -Avoid usage of nsaid's at this time -midodrine 5 mg po TID-MID -Labs in AM -Cardiology to decide when to start Nadolol Code(s): N17.9 - ACUTE KIDNEY FAILURE, UNSPECIFIED Assessment/Plan see problem list -DVT prophylaxis
--- NOTE | 2017-10-06 10:32 | PN ---
Progress Note (short form) - Note Progress Note: Podiatry F/U; Seen/evaluated at bedside, NAD. Pain controlled, denies F/V/N/C/SOB/CP. Afebrile, VSS. S/p L fifth digit amputation, partial fifth ray resection and second debridement/lavage. GEORGE: L foot: fifth ray diabetic ulcer with mixed fibrogranular base, mostly fibrotic slough, no purulence, no fluctuance, mild periwound erythema, no ascending cellulitis, no soft tissue crepitus, no signs of active infection. No gangrenous changes. Mild tenderness to palpation. OR Cx: prevotella, e. cloacae, e. faecalis Imp: 57 year old DM M s/p L fifth toe and partial fifth ray resection, debridement/lavage 1. IV abx per ID 2. For PICC line 3. Discussed options with patient, he is amenable to rehab placement 4. Needs local wound care at rehab. Santyl to wound base, wound vac on top with black granufoam 125 mmHg continuous changed 3x/week 5. Upon discharge, will f/u with me in wound healing center 10/11/17. Please make sure he has appointment before discharge. Angel Aguirre DPM
[2017-10-06] MEDS: COLLAGENASE CLOSTRIDIUM HIST. 30 GRAMS TUBE TP SCH (11:01)
[2017-10-06 11:10] LABS: BASO % 0.6 % (0-2.0); EOS % 1.5 % (0-4.5); HEMATOCRIT 25.3 % (35.4-49); HEMOGLOBIN 8.7 GM/dL (11.7-16.9); LYMPH % 13.8 % (8-40); MCH 32.7 pg (25.7-33.7); MCHC 34.3 g/dl (32.0-35.9); MEAN CELL VOLUME 95.5 fl (80-96); MEAN PLT VOLUME 7.4 fl (7.5-11.1); NEUT % 74.1 % (42.8-82.8); PLATELET COUNT 85 K/MM3 (134-434); RBC 2.65 M/mm3 (4.00-5.60); RDW 16.4 % (11.9-15.9); WHITE BLOOD COUNT 5.1 K/mm3 (4.0-10.0)
[2017-10-06 11:31] LABS: ALBUMIN 2.4 g/dl (3.4-5.0); ANION GAP 6 (8-16); BILIRUBIN,TOTAL 1.4 mg/dL (0.2-1.0); BLOOD UREA NITROGEN 16 mg/dL (7-18); CALCIUM 7.6 mg/dL (8.5-10.1); CHLORIDE 107 mmol/L (98-107); CO2 25 mmol/L (21-32); CREATININE 1.2 mg/dL (0.7-1.3); GLUCOSE,RANDOM 151 mg/dL (74-106); POTASSIUM 4.7 mmol/L (3.5-5.1); SGOT/AST 33 U/L (15-37); SGPT/ALT 22 U/L (12-78); SODIUM 138 mmol/L (136-145); TOT PROT 6.7 g/dl (6.4-8.2)
[2017-10-06 11:32] LABS: ALK PHOS 154 U/L (45-117)
--- NOTE | 2017-10-06 11:39 | PN ---
Progress Note, Physician History of Present Illness: stable debridement done still awaiting for final results - Current Medication List Current Medications: Active Medications Acetaminophen (Tylenol -) 650 mg PO Q4H PRN PRN Reason: FEVER Aspirin (Asa -) 81 mg PO DAILY [facility] Last Admin: 10/06/17 09:50 Dose: 81 mg Atorvastatin Calcium (Lipitor -) 10 mg PO HS [facility] Last Admin: 10/05/17 22:21 Dose: 10 mg Collagenase (Santyl -) 1 applic TP DAILY [facility] Last Admin: 10/06/17 11:01 Dose: Not Given Fentanyl (Sublimaze Injection -) 25 mcg IVPUSH [id number] PRN PRN Reason: PAIN-PACU ORDER X 4 DOSES ONLY Heparin Sodium (Porcine) (Heparin -) 5,000 unit SQ TID [facility] Last Admin: 10/06/17 06:23 Dose: 5,000 unit Piperacillin Sod/Tazobactam (Sod 3.375 gm/ Sodium Chloride) 100 mls @ 200 mls/ hr IVPB Q8H-IV [facility]; Protocol Last Admin: 10/06/17 09:47 Dose: 200 mls/hr Lactated Ringer's (Lactated Ringers Solution) 1,000 mls @ 125 mls/hr IV ASDIR [facility] Last Admin: 10/05/17 22:21 Dose: 125 mls/hr Insulin Aspart (Novolog Vial Sliding Scale -) 1 vial SQ ACHS [facility]; Protocol Last Admin: 10/06/17 06:23 Dose: Not Given Insulin Detemir (Levemir Vial) 25 units SQ AM [facility] Last Admin: 10/06/17 06:29 Dose: 25 unit Insulin Detemir (Levemir Vial) 10 units SQ HS [facility] Last Admin: 10/05/17 22:22 Dose: 10 unit Lactobacillus Acidophilus (Bacid -) 1 tab PO BID [facility] Last Admin: 10/06/17 09:49 Dose: 1 tab Midodrine (Proamatine -) 5 mg PO TID-MID [facility] Last Admin: 10/06/17 09:48 Dose: 5 mg Multivitamins/Minerals/Vitamin C (Tab-A-Vit -) 1 tab PO DAILY [facility] Last Admin: 10/06/17 09:50 Dose: 1 tab Nadolol (Corgard -) 20 mg PO DAILY [facility] Last Admin: 10/05/17 11:03 Dose: Not Given Ondansetron HCl (Zofran Injection) 4 mg IVPUSH Q6H PRN PRN Reason: NAUSEA AND/OR VOMITING Pantoprazole Sodium (Protonix -) 40 mg PO DAILY [facility] Last Admin: 10/06/17 09:48 Dose: 40 mg Ranolazine (Ranexa -) 1,000 mg PO BID [facility] Last Admin: 10/06/17 09:48 Dose: 1,000 mg Rifaximin (Xifaxan -) 550 mg PO BID [facility] Last Admin: 10/06/17 09:48 Dose: 550 mg Tramadol HCl (Ultram -) 50 mg PO Q8H PRN PRN Reason: PAIN LEVEL 6-10 Last Admin: 10/05/17 15:56 Dose: 50 mg - Objective Vital Signs: Vital Signs Temperature 97.9 F 10/06/17 10:00 Pulse Rate 50 L 10/06/17 10:00 Respiratory Rate 18 10/06/17 10:00 Blood Pressure 137/69 10/06/17 10:00 O2 Sat by Pulse Oximetry (%) 99 10/05/17 20:26 Constitutional: Yes: No Distress, Calm Cardiovascular: Yes: Regular Rate and Rhythm Respiratory: Yes: Regular, CTA Bilaterally Gastrointestinal: Yes: Normal Bowel Sounds, Soft Musculoskeletal: Yes: WNL Extremities: Yes: WNL Wound/Incision: Yes: Dressing Dry and Intact Neurological: Yes: Alert, Oriented Psychiatric: Yes: Alert, Oriented Labs: CBC, BMP 10/06/17 10:50 10/06/17 10:50 INR, PTT INR 1.27 (0.82-1.09) H 10/01/17 06:00 Assessment/Plan Problem List - Problems (1) Controlled diabetes mellitus with diabetic peripheral angiopathy without gangrene, without long-term current use of insulin Code(s): E11.51 - TYPE 2 DIABETES W DIABETIC PERIPHERAL ANGIOPATH W/O GANGRENE (2) Diabetic ulcer of left foot Code(s): E11.621 - TYPE 2 DIABETES MELLITUS WITH FOOT ULCER; L97.529 - NON- PRESSURE CHRONIC ULCER OTH PRT LEFT FOOT W UNSP SEVERITY Qualifiers: Diabetic foot ulcer location: other Diabetes mellitus type: type 1 Non- pressure ulcer stage: with other severity Qualified Code(s): E10.621 - Type 1 diabetes mellitus with foot ulcer; L97.528 - Non-pressure chronic ulcer of other part of left foot with other specified severity; L97.528 - Non-pressure chronic ulcer of other part of left foot with other specified severity; L97.528 - Non-pressure chronic ulcer of other part of left foot with other specified severity; L97.528 - Non-pressure chronic ulcer of other part of left foot with other specified severity (3) Abdominal distension Code(s): R14.0 - ABDOMINAL DISTENSION (GASEOUS) (4) Abscess of external ear Code(s): H60.00 - ABSCESS OF EXTERNAL EAR, UNSPECIFIED EAR Qualifiers: Laterality: left Qualified Code(s): H60.02 - Abscess of left external ear (5) Anemia Code(s): D64.9 - ANEMIA, UNSPECIFIED (6) Ascites due to alcoholic cirrhosis Code(s): K70.31 - ALCOHOLIC CIRRHOSIS OF LIVER WITH ASCITES (7) Atherosclerosis Code(s): I70.90 - UNSPECIFIED ATHEROSCLEROSIS SHANEKA LE gangrene/PVD/Ischemia/Osteomylitis Hx of Hepatic Ca Anemia/Thrombocytopenia plan patient stable no new issues continue current mgmt continue abx cx result noted
--- NOTE | 2017-10-06 14:49 | PN ---
Progress Note, Physician History of Present Illness: No acute events overnight. Clinically the same. No fever, chills, abdominal pain. Tolerating current diet. Heme positive stool. Had no surveillance EGDs since esophageal varices banding 3 years ago. Colonoscopy 2 years ago. - Current Medication List Current Medications: Active Medications Acetaminophen (Tylenol -) 650 mg PO Q4H PRN PRN Reason: FEVER Aspirin (Asa -) 81 mg PO DAILY [facility] Last Admin: 10/06/17 09:50 Dose: 81 mg Atorvastatin Calcium (Lipitor -) 10 mg PO HS [facility] Last Admin: 10/05/17 22:21 Dose: 10 mg Collagenase (Santyl -) 1 applic TP DAILY [facility] Last Admin: 10/06/17 11:01 Dose: Not Given Fentanyl (Sublimaze Injection -) 25 mcg IVPUSH [id number] PRN PRN Reason: PAIN-PACU ORDER X 4 DOSES ONLY Heparin Sodium (Porcine) (Heparin -) 5,000 unit SQ TID [facility] Last Admin: 10/06/17 14:34 Dose: Not Given Piperacillin Sod/Tazobactam (Sod 3.375 gm/ Sodium Chloride) 100 mls @ 200 mls/ hr IVPB Q8H-IV [facility]; Protocol Last Admin: 10/06/17 09:47 Dose: 200 mls/hr Lactated Ringer's (Lactated Ringers Solution) 1,000 mls @ 125 mls/hr IV ASDIR [facility] Last Admin: 10/05/17 22:21 Dose: 125 mls/hr Insulin Aspart (Novolog Vial Sliding Scale -) 1 vial SQ ACHS [facility]; Protocol Last Admin: 10/06/17 12:03 Dose: Not Given Insulin Detemir (Levemir Vial) 25 units SQ AM [facility] Last Admin: 10/06/17 06:29 Dose: 25 unit Insulin Detemir (Levemir Vial) 10 units SQ HS [facility] Last Admin: 10/05/17 22:22 Dose: 10 unit Lactobacillus Acidophilus (Bacid -) 1 tab PO BID [facility] Last Admin: 10/06/17 09:49 Dose: 1 tab Midodrine (Proamatine -) 5 mg PO TID-MID [facility] Last Admin: 10/06/17 09:48 Dose: 5 mg Multivitamins/Minerals/Vitamin C (Tab-A-Vit -) 1 tab PO DAILY [facility] Last Admin: 10/06/17 09:50 Dose: 1 tab Nadolol (Corgard -) 20 mg PO DAILY [facility] Last Admin: 10/05/17 11:03 Dose: Not Given Ondansetron HCl (Zofran Injection) 4 mg IVPUSH Q6H PRN PRN Reason: NAUSEA AND/OR VOMITING Pantoprazole Sodium (Protonix -) 40 mg PO DAILY [facility] Last Admin: 10/06/17 09:48 Dose: 40 mg Ranolazine (Ranexa -) 1,000 mg PO BID [facility] Last Admin: 10/06/17 09:48 Dose: 1,000 mg Rifaximin (Xifaxan -) 550 mg PO BID [facility] Last Admin: 10/06/17 09:48 Dose: 550 mg Tramadol HCl (Ultram -) 50 mg PO Q8H PRN PRN Reason: PAIN LEVEL 6-10 Last Admin: 10/05/17 15:56 Dose: 50 mg - Objective Vital Signs: Vital Signs Temperature 98.0 F 10/06/17 14:35 Pulse Rate 52 L 10/06/17 14:35 Respiratory Rate 18 10/06/17 14:35 Blood Pressure 153/75 10/06/17 14:35 O2 Sat by Pulse Oximetry (%) 99 10/05/17 20:26 Constitutional: Yes: No Distress, Calm Eyes: Yes: Conjunctiva Clear HENT: Yes: Atraumatic Neck: Yes: Supple Cardiovascular: Yes: Regular Rate and Rhythm Respiratory: Yes: Regular Gastrointestinal: Yes: Soft, Ascites, Distention. No: Tenderness, Vomiting Labs: CBC, BMP 10/06/17 10:50 10/06/17 10:50 INR, PTT INR 1.27 (0.82-1.09) H 10/01/17 06:00 Laboratory Last Values WBC 5.1 K/mm3 (4.0-10.0) 10/06/17 10:50 RBC 2.65 M/mm3 (4.00-5.60) L 10/06/17 10:50 Hgb 8.7 GM/dL (11.7-16.9) L 10/06/17 10:50 Hct 25.3 % (35.4-49) L 10/06/17 10:50 MCV 95.5 fl (80-96) 10/06/17 10:50 MCH 32.7 pg (25.7-33.7) 10/06/17 10:50 MCHC 34.3 g/dl (32.0-35.9) 10/06/17 10:50 RDW 16.4 % (11.9-15.9) H 10/06/17 10:50 Plt Count 85 K/MM3 (134-434) L 10/06/17 10:50 MPV 7.4 fl (7.5-11.1) L 10/06/17 10:50 Total Counted 100 10/03/17 07:30 Neutrophils % 74.1 % (42.8-82.8) 10/06/17 10:50 Neutrophils % (Manual) 72.0 % (42.8-82.8) 10/03/17 07:30 Band Neutrophils % 6.0 % 10/03/17 07:30 Lymphocytes % 13.8 % (8-40) 10/06/17 10:50 Lymphocytes % (Manual) 8.0 % (8-40) D 10/03/17 07:30 Monocytes % 10.0 % (3.8-10.2) 10/06/17 10:50 Monocytes % (Manual) 9 % (3.8-10.2) 10/03/17 07:30 Eosinophils % 1.5 % (0-4.5) 10/06/17 10:50 Eosinophils % (Manual) 3.0 % (0-4.5) D 10/03/17 07:30 Basophils % 0.6 % (0-2.0) 10/06/17 10:50 Basophils % (Manual) 0.0 % (0-2.0) 10/03/17 07:30 Myelocytes % (Man) 1 % (0-2) D 10/03/17 07:30 Promyelocytes % (Man) 0 % (0-2) 10/03/17 07:30 Blast Cells % (Manual) 0 % (0-0) 10/03/17 07:30 Nucleated RBC % 0 % (0-0) 10/06/17 10:50 Metamyelocytes 0 % (0-2) 10/03/17 07:30 Hypochromia 0 10/03/17 07:30 Toxic Granulation 0 10/03/17 07:30 Dohle Bodies 0 10/03/17 07:30 Platelet Estimate Decreased 10/03/17 07:30 Platelet Comment Present 10/03/17 07:30 Polychromasia 0 10/03/17 07:30 Poikilocytosis 0 10/03/17 07:30 Basophilic Stippling 0 10/03/17 07:30 Anisocytosis 0 10/03/17 07:30 Microcytosis 0 10/03/17 07:30 Macrocytosis 0 10/03/17 07:30 Spherocytes 0 10/03/17 07:30 Sickle Cells 0 10/03/17 07:30 Target Cells 0 10/03/17 07:30 Tear Drop Cells 0 10/03/17 07:30 Ovalocytes 0 10/03/17 07:30 Stomatocytes 0 10/03/17 07:30 Helmet Cells 0 10/03/17 07:30 [place] Bodies 0 10/03/17 07:30 [place] Rings 0 10/03/17 07:30 Yazmin Cells 0 10/03/17 07:30 Acanthocytes (Spur) 0 10/03/17 07:30 Rouleaux 0 10/03/17 07:30 Fragmented RBCs 0 10/03/17 07:30 Schistocytes 0 10/03/17 07:30 PT with INR 14.30 SEC (9.7-13.0) H 10/01/17 06:00 INR 1.27 (0.82-1.09) H 10/01/17 06:00 PTT (Actin FS) 29.9 SECONDS (26.9-34.4) 09/30/17 14:01 VBG pH 7.31 (7.32-7.42) L 09/30/17 14:01 POC VBG pCO2 47.6 mmHg (38-52) 09/30/17 14:01 POC VBG pO2 13.7 mmHg (28-48) L* 09/30/17 14:01 Mixed VBG HCO3 23.1 meq/L (19-25) 09/30/17 14:01 Sodium 138 mmol/L (136-145) 10/06/17 10:50 Potassium 4.7 mmol/L (3.5-5.1) 10/06/17 10:50 Chloride 107 mmol/L (98-107) 10/06/17 10:50 Carbon Dioxide 25 mmol/L (21-32) 10/06/17 10:50 Anion Gap 6 (8-16) L 10/06/17 10:50 BUN 16 mg/dL (7-18) 10/06/17 10:50 Creatinine 1.2 mg/dL (0.7-1.3) 10/06/17 10:50 Creat Clearance w eGFR > 60 (>60) 10/06/17 10:50 POC Glucometer 145 UNITS (80-120) 10/06/17 12:00 Random Glucose 151 mg/dL (74-106) H 10/06/17 10:50 Hemoglobin A1c % 5.6 % (4.8-6.0) D 10/02/17 06:00 Lactic Acid 1.6 mmol/L (0.0-2.0) 10/01/17 10:35 Calcium 7.6 mg/dL (8.5-10.1) L 10/06/17 10:50 Phosphorus 2.7 mg/dL (2.5-4.9) 10/05/17 06:00 Magnesium 2.0 mg/dL (1.8-2.4) 10/05/17 06:00 Iron 44 ug/dL (38-169) 10/04/17 06:00 TIBC 170 ug/dL (250-450) L 10/04/17 06:00 Iron Saturation 26 % (15-55) 10/04/17 06:00 Ferritin 84.733 ng/ml (16.4-293.9) 10/04/17 06:00 Total Bilirubin 1.4 mg/dL (0.2-1.0) H D 10/06/17 10:50 AST 33 U/L (15-37) 10/06/17 10:50 ALT 22 U/L (12-78) 10/06/17 10:50 Alkaline Phosphatase 154 U/L (45-117) H 10/06/17 10:50 Troponin I 0.03 ng/ml (0.00-0.05) D 09/30/17 22:00 Total Protein 6.7 g/dl (6.4-8.2) 10/06/17 10:50 Albumin 2.4 g/dl (3.4-5.0) L 10/06/17 10:50 Vitamin B12 1080 pg/ml (180-914) H D 10/04/17 06:00 Serum Folate 38 ng/ml (3.1-17.5) H 10/04/17 06:00 TSH 0.85 uIU/ml (0.358-3.74) D 10/04/17 06:00 Free T4 1.39 ng/dl (0.76-1.16) H 10/04/17 06:00 Urine Color Dkyellow 09/30/17 16:39 Urine Appearance Clear 09/30/17 16:39 Urine pH 5.0 (5.0-8.0) 09/30/17 16:39 Ur Specific [place] 1.016 (1.001-1.035) 09/30/17 16:39 Urine Protein Negative (NEGATIVE) 09/30/17 16:39 Urine Glucose (UA) Negative (NEGATIVE) 09/30/17 16:39 Urine Ketones Negative (NEGATIVE) 09/30/17 16:39 Urine Blood Negative (NEGATIVE) 09/30/17 16:39 Urine Nitrite Negative (NEGATIVE) 09/30/17 16:39 Urine Bilirubin Negative (<2.0 mg/dL) 09/30/17 16:39 Urine Urobilinogen 2.0 mg/dL (0.2-1.0) 09/30/17 16:39 Ur Leukocyte Esterase Negative (NEGATIVE) 09/30/17 16:39 U Random Total Protein 13 mg/dl (5-11.9) H 10/01/17 15:25 Ur Random Sodium 59 MMOL/L 10/01/17 15:25 Ur Random Urea Nitrogn 460 mg/dL 10/01/17 15:25 Urine Creatinine 49.9 mg/dL (20-370) 10/01/17 15:25 Stool Occult Blood Positive (NEGATIVE) 10/05/17 19:20 Blood Type A POSITIVE 10/01/17 14:35 Antibody Screen Negative 10/01/17 14:35 Crossmatch See Detail 10/01/17 14:35 Problem List - Problems (1) Hepatocellular carcinoma Code(s): C22.0 - LIVER CELL CARCINOMA (2) 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 Code(s): K75.81 - NONALCOHOLIC STEATOHEPATITIS (HERNANDEZ); K74.60 - UNSPECIFIED CIRRHOSIS OF LIVER (3) Ascites Code(s): R18.8 - OTHER ASCITES Assessment/Plan Plan upper endoscopy for esophageal varices surveillance. Continue PPI. Discussed with the patient.
--- NOTE | 2017-10-06 17:44 | PN ---
Progress Note (short form) - Note Progress Note: Renal Follow up for SHANEKA Pt seen and examined at the bedside no acute complaints Vital Signs Temperature 98.0 F 10/06/17 14:35 Pulse Rate 52 L 10/06/17 14:35 Respiratory Rate 18 10/06/17 14:35 Blood Pressure 153/75 10/06/17 14:35 O2 Sat by Pulse Oximetry (%) 99 10/05/17 20:26 Intake & Output 10/03/17 10/04/17 10/05/17 10/06/17 23:59 23:59 23:59 23:59 Intake Total 1702 637 6661 850 Output Total 1550 2200 600 Balance 120 -1280 3050 850 NAD MMM bradycardic, no M/R CTA + ascities + trace LE edema CBC, BMP 10/06/17 10:50 10/06/17 10:50 Current Medications Acetaminophen (Tylenol -) 650 mg PO Q4H PRN PRN Reason: FEVER Aspirin (Asa -) 81 mg PO DAILY [facility] Last Admin: 10/06/17 09:50 Dose: 81 mg Atorvastatin Calcium (Lipitor -) 10 mg PO HS [facility] Last Admin: 10/05/17 22:21 Dose: 10 mg Collagenase (Santyl -) 1 applic TP DAILY [facility] Last Admin: 10/06/17 11:01 Dose: Not Given Fentanyl (Sublimaze Injection -) 25 mcg IVPUSH [id number] PRN PRN Reason: PAIN-PACU ORDER X 4 DOSES ONLY Heparin Sodium (Porcine) (Heparin -) 5,000 unit SQ TID [facility] Last Admin: 10/06/17 14:34 Dose: Not Given Piperacillin Sod/Tazobactam (Sod 3.375 gm/ Sodium Chloride) 100 mls @ 200 mls/ hr IVPB Q8H-IV [facility]; Protocol Last Admin: 10/06/17 09:47 Dose: 200 mls/hr Lactated Ringer's (Lactated Ringers Solution) 1,000 mls @ 125 mls/hr IV ASDIR [facility] Last Admin: 10/05/17 22:21 Dose: 125 mls/hr Insulin Aspart (Novolog Vial Sliding Scale -) 1 vial SQ ACHS [facility]; Protocol Last Admin: 10/06/17 16:32 Dose: Not Given Insulin Detemir (Levemir Vial) 25 units SQ AM [facility] Last Admin: 10/06/17 06:29 Dose: 25 unit Insulin Detemir (Levemir Vial) 10 units SQ HS [facility] Last Admin: 10/05/17 22:22 Dose: 10 unit Lactobacillus Acidophilus (Bacid -) 1 tab PO BID [facility] Last Admin: 10/06/17 09:49 Dose: 1 tab Midodrine (Proamatine -) 5 mg PO TID-MID [facility] Last Admin: 10/06/17 15:27 Dose: 5 mg Multivitamins/Minerals/Vitamin C (Tab-A-Vit -) 1 tab PO DAILY [facility] Last Admin: 10/06/17 09:50 Dose: 1 tab Nadolol (Corgard -) 20 mg PO DAILY [facility] Last Admin: 10/05/17 11:03 Dose: Not Given Ondansetron HCl (Zofran Injection) 4 mg IVPUSH Q6H PRN PRN Reason: NAUSEA AND/OR VOMITING Pantoprazole Sodium (Protonix -) 40 mg PO DAILY [facility] Last Admin: 10/06/17 09:48 Dose: 40 mg Ranolazine (Ranexa -) 1,000 mg PO BID [facility] Last Admin: 10/06/17 09:48 Dose: 1,000 mg Rifaximin (Xifaxan -) 550 mg PO BID [facility] Last Admin: 10/06/17 09:48 Dose: 550 mg Tramadol HCl (Ultram -) 50 mg PO Q8H PRN PRN Reason: PAIN LEVEL 6-10 Last Admin: 10/05/17 15:56 Dose: 50 mg 57 year old gentleman with PMhx of Hepatic Ca s/p radiation wit stigmata of liver disease , DM, Anemia, Hypertertension, HLD, CVA, Gastritis presented with infected left foot now s/p amputation with SHANEKA. #SHANEKA (baseline Cr 1.3) secondary to intravascular volume depletion #LE gangrene/PVD/Ischemia/Osteomylitis #Hx of Hepatic Ca #hx of hypertension, now hypotensive #Anemia/Thrombocytopenia Renal function improved and stable off IVF avoid nephrotoxins and IV contrast continue Abx as per Id will sign off at this time please call if any questions or concerns Anton Faith DO
[2017-10-06] MEDS: LACTATED RINGERS SOLUTION 1,000 ML IV SCH (18:51)
[2017-10-06] MEDS: ATORVASTATIN CA 10 MG TABLET (FP) PO SCH (22:00)
[2017-10-07] MEDS ORDERED: SODIUM CHLORIDE 100 ML IVPB ONE ×3 (00:47→18:05)
[2017-10-07] MEDS ORDERED: PIPERACILLIN/TAZOBACTAM 3.375 GM VIAL IVPB ONE ×3 (00:47→18:05)
[2017-10-07] MEDS: PIPERACILLIN/TAZOB 3.375 GM 3.375 GM in SODIUM CHLORIDE 100 ML IVPB SCH ×3 (01:03→18:07)
[2017-10-07] MEDS: INSULIN (LEVEMIR) 100 UNITS/ML UNITS SQ SCH ×2 (06:20→21:07)
[2017-10-07] MEDS: INSULIN SLIDING SCALE (NOVOLOG) 1 VIAL SQ SCH ×4 (06:21→21:06)
[2017-10-07 07:38] LABS: BASO % 0.5 % (0-2.0); EOS % 1.3 % (0-4.5); HEMATOCRIT 23.9 % (35.4-49); HEMOGLOBIN 8.3 GM/dL (11.7-16.9); LYMPH % 14.1 % (8-40); MCH 32.9 pg (25.7-33.7); MCHC 34.7 g/dl (32.0-35.9); MEAN CELL VOLUME 94.6 fl (80-96); MEAN PLT VOLUME 7.7 fl (7.5-11.1); MONO % 9.6 % (3.8-10.2); NEUT % 74.5 % (42.8-82.8); PLATELET COUNT 93 K/MM3 (134-434); RBC 2.52 M/mm3 (4.00-5.60); RDW 16.1 % (11.9-15.9); WHITE BLOOD COUNT 4.7 K/mm3 (4.0-10.0)
[2017-10-07 07:46] LABS: ALBUMIN 2.3 g/dl (3.4-5.0); ANION GAP 4 (8-16); BLOOD UREA NITROGEN 15 mg/dL (7-18); CALCIUM 7.7 mg/dL (8.5-10.1); CHLORIDE 108 mmol/L (98-107); CO2 26 mmol/L (21-32); CREATININE 1.2 mg/dL (0.7-1.3); GLUCOSE,RANDOM 117 mg/dL (74-106); POTASSIUM 4.5 mmol/L (3.5-5.1); SODIUM 138 mmol/L (136-145)
[2017-10-07 07:50] LABS: ALK PHOS 142 U/L (45-117); BILIRUBIN,TOTAL 1.3 mg/dL (0.2-1.0); SGOT/AST 29 U/L (15-37); SGPT/ALT 18 U/L (12-78); TOT PROT 6.2 g/dl (6.4-8.2)
[2017-10-07 08:03] LABS: INR 1.14 (0.82-1.09); PROTHROMBIN TIME (PATIENT) 12.9 SEC (9.7-13.0)
[2017-10-07 08:51] LABS: ANISOCYTOSIS 1+; OVALOCYTE 1+; PLATELET ESTIMATE DECREASED
[2017-10-07] MEDS ORDERED: RANOLAZINE E.R. 500 MG TABLET (FP) ONE ×2 (10:01→20:24)
--- NOTE | 2017-10-07 10:31 | PN ---
Progress Note, Physician Chief Complaint: Left diabetic foot ulcer History of Present Illness: NAD Seen by ID and nephrology IV abx Had debridement yesterday Wound cultures H/H stable going for EGD today Wound vac pending - Current Medication List Current Medications: Active Medications Acetaminophen (Tylenol -) 650 mg PO Q4H PRN PRN Reason: FEVER Aspirin (Asa -) 81 mg PO DAILY [facility] Last Admin: 10/06/17 09:50 Dose: 81 mg Atorvastatin Calcium (Lipitor -) 10 mg PO HS [facility] Last Admin: 10/06/17 22:00 Dose: 10 mg Collagenase (Santyl -) 1 applic TP DAILY [facility] Last Admin: 10/06/17 11:01 Dose: Not Given Fentanyl (Sublimaze Injection -) 25 mcg IVPUSH [id number] PRN PRN Reason: PAIN-PACU ORDER X 4 DOSES ONLY Heparin Sodium (Porcine) (Heparin -) 5,000 unit SQ BID [facility] Last Admin: 10/06/17 21:59 Dose: 5,000 unit Piperacillin Sod/Tazobactam (Sod 3.375 gm/ Sodium Chloride) 100 mls @ 200 mls/ hr IVPB Q8H-IV [facility]; Protocol Last Admin: 10/07/17 01:03 Dose: 200 mls/hr Lactated Ringer's (Lactated Ringers Solution) 1,000 mls @ 125 mls/hr IV ASDIR [facility] Last Admin: 10/06/17 18:51 Dose: 125 mls/hr Insulin Aspart (Novolog Vial Sliding Scale -) 1 vial SQ ACHS [facility]; Protocol Last Admin: 10/07/17 06:21 Dose: Not Given Insulin Detemir (Levemir Vial) 25 units SQ AM [facility] Last Admin: 10/07/17 06:20 Dose: Not Given Insulin Detemir (Levemir Vial) 10 units SQ HS [facility] Last Admin: 10/06/17 22:03 Dose: 10 unit Lactobacillus Acidophilus (Bacid -) 1 tab PO BID [facility] Last Admin: 10/06/17 22:05 Dose: 1 tab Midodrine (Proamatine -) 5 mg PO TID-MID [facility] Last Admin: 10/06/17 18:14 Dose: 5 mg Multivitamins/Minerals/Vitamin C (Tab-A-Vit -) 1 tab PO DAILY [facility] Last Admin: 10/06/17 09:50 Dose: 1 tab Nadolol (Corgard -) 20 mg PO DAILY [facility] Last Admin: 10/05/17 11:03 Dose: Not Given Ondansetron HCl (Zofran Injection) 4 mg IVPUSH Q6H PRN PRN Reason: NAUSEA AND/OR VOMITING Pantoprazole Sodium (Protonix -) 40 mg PO DAILY [facility] Last Admin: 10/06/17 09:48 Dose: 40 mg Ranolazine (Ranexa -) 1,000 mg PO BID [facility] Last Admin: 10/06/17 22:06 Dose: 1,000 mg Rifaximin (Xifaxan -) 550 mg PO BID [facility] Last Admin: 10/06/17 22:04 Dose: 550 mg Tramadol HCl (Ultram -) 50 mg PO Q8H PRN PRN Reason: PAIN LEVEL 6-10 Last Admin: 10/05/17 15:56 Dose: 50 mg - Objective Vital Signs: Vital Signs Temperature 98.1 F 10/07/17 05:54 Pulse Rate 53 L 10/07/17 05:54 Respiratory Rate 20 10/07/17 05:54 Blood Pressure 104/49 10/07/17 05:54 O2 Sat by Pulse Oximetry (%) 99 10/06/17 20:47 Constitutional: Yes: Well Nourished, No Distress, Calm Cardiovascular: Yes: Regular Rate and Rhythm Respiratory: Yes: Regular Gastrointestinal: Yes: Normal Bowel Sounds, Abdomen, Obese, Ascites Musculoskeletal: Yes: WNL Extremities: Yes: WNL Neurological: Yes: Alert, Oriented Psychiatric: Yes: Alert, Oriented Labs: CBC, BMP 10/07/17 06:00 10/07/17 06:00 INR, PTT INR 1.14 (0.82-1.09) 10/07/17 06:00 Problem List - Problems (1) Diabetes type 2, uncontrolled Assessment/Plan: -BGM -Diabetic diet -A1c 5.6 -Insulin long and short acting, adjust by endocrinology -RD consult -Endocrinology on board Code(s): E11.65 - TYPE 2 DIABETES MELLITUS WITH HYPERGLYCEMIA Qualifiers: Diabetes mellitus complication status: with circulatory complication Diabetes mellitus complication detail: with other circulatory complications (2) CAD (coronary artery disease) Assessment/Plan: -aspirin 81 mg po daily -Lipitor 10 mg po HS -Seen by cardiology -Nadolol on hold for bradycardia -On Ranexa 550 mg po BID Code(s): I25.10 - ATHSCL HEART DISEASE OF [place] CORONARY ARTERY W/O ANG PCTRS (3) Anemia Assessment/Plan: -2/2 CKD chronic disease -received 1 unit PRBC this admission -normal transfusion parameters -Stool Guaiac positive -Iron profile normal -thyroid profile, B 12, folate okay -EGD today Code(s): D64.9 - ANEMIA, UNSPECIFIED (4) Ascites Assessment/Plan: -On U/S abdomen- moderate ascites -Chronic -GI consult Code(s): R18.8 - OTHER ASCITES Qualifiers: Ascites type: other type Qualified Code(s): R18.8 - Other ascites (5) Cellulitis of toe, left Assessment/Plan: -On IV Zosyn 3.375 Q8H -Podiatry consult -debridement done yesterday by Podiatry -dressing changed podiatry -Awaiting wound vac Code(s): L03.032 - CELLULITIS OF LEFT TOE (6) [place]ANE[place] (acute kidney injury) Assessment/Plan: -Seen by Nephrology -Likely secondary to use of JOSI+NSAID's -hold BP meds -Avoid usage of nsaid's at this time -midodrine 5 mg po TID-MID -Labs in AM -Cardiology to decide when to start Nadolol Code(s): N17.9 - ACUTE KIDNEY FAILURE, UNSPECIFIED Assessment/Plan see problem list -DVT prophylaxis
[2017-10-07] MEDS: LACTATED RINGERS SOLUTION 1,000 ML IV SCH (10:38)
[2017-10-07] MEDS: ASPIRIN 81 MG CHEWABLE TABLETS PO SCH (11:00)
[2017-10-07] MEDS: RANOLAZINE E.R. 1,000 MG TABLET (FP) PO SCH ×2 (11:00→21:06)
[2017-10-07] MEDS: MIDODRINE HCL 5 MG TABLET PO SCH ×3 (11:00→18:07)
[2017-10-07] MEDS: LACTOBACILLUS ACIDOPHILUS 1 TABLET PO SCH ×2 (11:00→21:04)
[2017-10-07] MEDS: HEPARIN NA (PORCINE) 5,000 UNITS/ML 1ML VIAL SQ SCH ×2 (11:00→21:04)
[2017-10-07] MEDS: MULTIVITAMINS (DAILY MVI) TABLET (FP) PO SCH (11:00)
[2017-10-07] MEDS: PANTOPRAZOLE 40 MG TABLET (FP) PO SCH (11:00)
[2017-10-07] MEDS: RIFAXIMIN 550 MG TABLET (UD) PO SCH (11:00)
--- NOTE | 2017-10-07 11:57 | PN ---
Progress Note, Physician History of Present Illness: doing well no new issues no complaints - Current Medication List Current Medications: Active Medications Acetaminophen (Tylenol -) 650 mg PO Q4H PRN PRN Reason: FEVER Aspirin (Asa -) 81 mg PO DAILY [facility] Last Admin: 10/06/17 09:50 Dose: 81 mg Atorvastatin Calcium (Lipitor -) 10 mg PO HS [facility] Last Admin: 10/06/17 22:00 Dose: 10 mg Collagenase (Santyl -) 1 applic TP DAILY [facility] Last Admin: 10/06/17 11:01 Dose: Not Given Fentanyl (Sublimaze Injection -) 25 mcg IVPUSH [id number] PRN PRN Reason: PAIN-PACU ORDER X 4 DOSES ONLY Heparin Sodium (Porcine) (Heparin -) 5,000 unit SQ BID [facility] Last Admin: 10/06/17 21:59 Dose: 5,000 unit Piperacillin Sod/Tazobactam (Sod 3.375 gm/ Sodium Chloride) 100 mls @ 200 mls/ hr IVPB Q8H-IV [facility]; Protocol Last Admin: 10/07/17 10:39 Dose: 200 mls/hr Lactated Ringer's (Lactated Ringers Solution) 1,000 mls @ 125 mls/hr IV ASDIR [facility] Last Admin: 10/07/17 10:38 Dose: 125 mls/hr Insulin Aspart (Novolog Vial Sliding Scale -) 1 vial SQ ACHS [facility]; Protocol Last Admin: 10/07/17 06:21 Dose: Not Given Insulin Detemir (Levemir Vial) 25 units SQ AM [facility] Last Admin: 10/07/17 06:20 Dose: Not Given Insulin Detemir (Levemir Vial) 10 units SQ HS [facility] Last Admin: 10/06/17 22:03 Dose: 10 unit Lactobacillus Acidophilus (Bacid -) 1 tab PO BID [facility] Last Admin: 10/06/17 22:05 Dose: 1 tab Midodrine (Proamatine -) 5 mg PO TID-MID [facility] Last Admin: 10/06/17 18:14 Dose: 5 mg Multivitamins/Minerals/Vitamin C (Tab-A-Vit -) 1 tab PO DAILY [facility] Last Admin: 10/06/17 09:50 Dose: 1 tab Nadolol (Corgard -) 20 mg PO DAILY [facility] Last Admin: 10/05/17 11:03 Dose: Not Given Ondansetron HCl (Zofran Injection) 4 mg IVPUSH Q6H PRN PRN Reason: NAUSEA AND/OR VOMITING Pantoprazole Sodium (Protonix -) 40 mg PO DAILY [facility] Last Admin: 10/06/17 09:48 Dose: 40 mg Ranolazine (Ranexa -) 1,000 mg PO BID [facility] Last Admin: 10/06/17 22:06 Dose: 1,000 mg Rifaximin (Xifaxan -) 550 mg PO BID [facility] Last Admin: 10/06/17 22:04 Dose: 550 mg Tramadol HCl (Ultram -) 50 mg PO Q8H PRN PRN Reason: PAIN LEVEL 6-10 Last Admin: 10/05/17 15:56 Dose: 50 mg - Objective Vital Signs: Vital Signs Temperature 98.1 F 10/07/17 05:54 Pulse Rate 53 L 10/07/17 05:54 Respiratory Rate 20 10/07/17 05:54 Blood Pressure 104/49 10/07/17 05:54 O2 Sat by Pulse Oximetry (%) 99 10/06/17 20:47 Constitutional: Yes: No Distress, Calm Cardiovascular: Yes: Regular Rate and Rhythm Respiratory: Yes: Regular, CTA Bilaterally Gastrointestinal: Yes: Normal Bowel Sounds, Soft Musculoskeletal: Yes: WNL Extremities: Yes: Other Neurological: Yes: Alert, Oriented Psychiatric: Yes: Alert, Oriented Labs: CBC, BMP 10/07/17 06:00 10/07/17 06:00 INR, PTT INR 1.14 (0.82-1.09) 10/07/17 06:00 Assessment/Plan Problem List - Problems (1) Controlled diabetes mellitus with diabetic peripheral angiopathy without gangrene, without long-term current use of insulin Code(s): E11.51 - TYPE 2 DIABETES W DIABETIC PERIPHERAL ANGIOPATH W/O GANGRENE (2) Diabetic ulcer of left foot Code(s): E11.621 - TYPE 2 DIABETES MELLITUS WITH FOOT ULCER; L97.529 - NON- PRESSURE CHRONIC ULCER OTH PRT LEFT FOOT W UNSP SEVERITY Qualifiers: Diabetic foot ulcer location: other Diabetes mellitus type: type 1 Non- pressure ulcer stage: with other severity Qualified Code(s): E10.621 - Type 1 diabetes mellitus with foot ulcer; L97.528 - Non-pressure chronic ulcer of other part of left foot with other specified severity; L97.528 - Non-pressure chronic ulcer of other part of left foot with other specified severity; L97.528 - Non-pressure chronic ulcer of other part of left foot with other specified severity; L97.528 - Non-pressure chronic ulcer of other part of left foot with other specified severity (3) Abdominal distension Code(s): R14.0 - ABDOMINAL DISTENSION (GASEOUS) (4) Abscess of external ear Code(s): H60.00 - ABSCESS OF EXTERNAL EAR, UNSPECIFIED EAR Qualifiers: Laterality: left Qualified Code(s): H60.02 - Abscess of left external ear (5) Anemia Code(s): D64.9 - ANEMIA, UNSPECIFIED (6) Ascites due to alcoholic cirrhosis Code(s): K70.31 - ALCOHOLIC CIRRHOSIS OF LIVER WITH ASCITES (7) Atherosclerosis Code(s): I70.90 - UNSPECIFIED ATHEROSCLEROSIS [place] LE gangrene/PVD/Ischemia/Osteomylitis Hx of Hepatic Ca Anemia/Thrombocytopenia plan patient stable no new issues still awaiting the cx report patient will need 4 more weeks of iv abx
--- NOTE | 2017-10-07 16:28 | PROC ---
Endoscopy Procedure Endoscopy procedure completed. Please see scanned procedure report. Portal hypertensive gastropathy and gastritis were found and biopsied Isolated gastric varix w/o stigmata of recent, or impending bleeding was found in the fundus. 2 columns, grade III esophageal varices w/o stigmata of recent, or impending bleeding were found in the distal esophagus and NOT banded due to presents of the isolated, gastric varix. Continue nadalol @ 20 mg po bid, PPI. Awoid NSAIDs. Await for biosy results.
[2017-10-07] MEDS: LACTULOSE 20 GM/30 ML UDC (FOR ORAL USE ONLY) PO SCH ×2 (18:06→21:04)
[2017-10-07] MEDS: COLLAGENASE CLOSTRIDIUM HIST. 30 GRAMS TUBE TP SCH ×2 (18:07→21:03)
[2017-10-07] MEDS: ATORVASTATIN CA 10 MG TABLET (FP) PO SCH (21:05)
[2017-10-08] MEDS ORDERED: SODIUM CHLORIDE 100 ML IVPB ONE ×3 (00:33→17:44)
[2017-10-08] MEDS ORDERED: PIPERACILLIN/TAZOBACTAM 3.375 GM VIAL IVPB ONE ×3 (00:33→17:44)
[2017-10-08] MEDS: PIPERACILLIN/TAZOB 3.375 GM 3.375 GM in SODIUM CHLORIDE 100 ML IVPB SCH ×3 (01:06→18:01)
[2017-10-08] MEDS: INSULIN SLIDING SCALE (NOVOLOG) 1 VIAL SQ SCH ×4 (06:27→22:07)
[2017-10-08] MEDS: INSULIN (LEVEMIR) 100 UNITS/ML UNITS SQ SCH ×2 (06:28→22:06)
[2017-10-08] MEDS ORDERED: RANOLAZINE E.R. 500 MG TABLET (FP) ONE ×2 (08:56→21:32)
[2017-10-08] MEDS: MULTIVITAMINS (DAILY MVI) TABLET (FP) PO SCH (09:19)
[2017-10-08] MEDS: PANTOPRAZOLE 40 MG TABLET (FP) PO SCH (09:19)
[2017-10-08] MEDS: RANOLAZINE E.R. 1,000 MG TABLET (FP) PO SCH ×2 (09:19→22:05)
[2017-10-08] MEDS: LACTULOSE 20 GM/30 ML UDC (FOR ORAL USE ONLY) PO SCH ×6 (09:20→22:11)
[2017-10-08] MEDS: LACTOBACILLUS ACIDOPHILUS 1 TABLET PO SCH ×2 (09:22→22:04)
[2017-10-08] MEDS ORDERED: PT OWN MED DRAWER 7, Y5N ONE ×2 (09:35→21:33)
[2017-10-08] MEDS: ASPIRIN 81 MG CHEWABLE TABLETS PO SCH (09:37)
[2017-10-08] MEDS: HEPARIN NA (PORCINE) 5,000 UNITS/ML 1ML VIAL SQ SCH ×2 (09:38→22:06)
[2017-10-08] MEDS: MIDODRINE HCL 5 MG TABLET PO SCH ×3 (09:38→18:02)
--- NOTE | 2017-10-08 11:52 | PN ---
Physical Exam: SUBJECTIVE: Patient seen and examined. He has no complaints. Pain in his left foot is controlled with Tylenol. OBJECTIVE: Vital Signs Period Temp Pulse Resp BP Sys/Ferrell Pulse Ox Last 24 Hr 97.5 F-98.8 F 53-64 16-20 119-154/55-75 97-100 GENERAL: The patient is awake, alert, and fully oriented, in no acute distress. LUNGS: Breath sounds equal, clear to auscultation bilaterally, no wheezes, no crackles, no accessory muscle use. HEART: Regular rate and rhythm, S1, S2 without murmur, rub or gallop. ABDOMEN: Obese, soft, nontender, nondistended, normoactive bowel sounds, no guarding, no rebound, no hepatosplenomegaly, no masses. EXTREMITIES: No edema. Left foot wrapped. Laboratory Results - last 24 hr 10/07/17 10/07/17 10/07/17 12:06 17:18 20:59 POC Glucometer 109 100 153 10/08/17 06:06 POC Glucometer 114 Active Medications Generic Name Dose Route Start Last Admin Trade Name Freq PRN Reason Stop Dose Admin Acetaminophen 650 mg 10/04/17 18:29 Tylenol - PO Q4H PRN FEVER Aspirin 81 mg 10/05/17 10:00 10/08/17 09:37 Asa - PO 81 mg DAILY [facility] Administration Atorvastatin Calcium 10 mg 10/04/17 22:00 10/07/17 21:05 Lipitor - PO 10 mg HS [facility] Administration Collagenase 1 applic 10/05/17 10:00 10/07/17 21:03 Santyl - TP 1 applic DAILY [facility] Administration Fentanyl 25 mcg 10/04/17 19:20 Sublimaze Injection - IVPUSH [id number] PRN PAIN-PACU ORDER X 4 DOSES ONLY Heparin Sodium (Porcine) 5,000 unit 10/06/17 22:00 10/08/17 09:38 Heparin - SQ 5,000 unit BID [facility] Administration Piperacillin Sod/Tazobactam 100 mls @ 200 mls/hr 10/05/17 02:00 10/08/17 09: 18 Sod 3.375 gm/ Sodium Chloride IVPB 200 mls/hr Q8H-IV [facility] Administration Protocol Insulin Aspart 1 vial 10/04/17 22:00 10/08/17 06:27 Novolog Vial Sliding Scale - SQ Not Given ACHS [facility] Protocol Insulin Detemir 25 units 10/05/17 07:00 10/08/17 06:28 Levemir Vial SQ 25 unit AM [facility] Administration Insulin Detemir 10 units 10/04/17 22:00 10/07/17 21:07 Levemir Vial SQ 10 unit HS [facility] Administration Lactobacillus Acidophilus 1 tab 10/04/17 22:00 10/08/17 09:22 Bacid - PO 1 tab BID [facility] Administration Lactulose 20 gm 10/07/17 18:00 10/08/17 09:20 Cephulac (Oral Use) PO 20 gm QID [facility] Administration Midodrine 5 mg 10/05/17 10:00 10/08/17 09:38 Proamatine - PO 5 mg TID-MID [facility] Administration Multivitamins/Minerals/Vitamin C 1 tab 10/05/17 10:00 10/08/17 09:19 Tab-A-Vit - PO 1 tab DAILY [facility] Administration Nadolol 20 mg 10/05/17 10:00 10/05/17 11:03 Corgard - PO Not Given DAILY [facility] Ondansetron HCl 4 mg 10/04/17 19:20 Zofran Injection IVPUSH Q6H PRN NAUSEA AND/OR VOMITING Pantoprazole Sodium 40 mg 10/05/17 10:00 10/08/17 09:19 Protonix - PO 40 mg DAILY [facility] Administration Ranolazine 1,000 mg 10/04/17 22:00 10/08/17 09:19 Ranexa - PO 1,000 mg BID [facility] Administration Tramadol HCl 50 mg 10/04/17 18:22 10/05/17 15:56 Ultram - PO 50 mg Q8H PRN Administration PAIN LEVEL 6-10 ASSESSMENT/PLAN: 1. Infected left foot diabetic ulcer - s/p left 5th toe amputation 09/30 - Culture growing Kluyvera ascorbata sensitive to Zosyn - Continue Zosyn - ID follow up - Continue wound care with Santyl - Awaiting wound VAC 2. Type 2 DM with peripheral neuropathy - Continue Levemir, Novolog sliding scale 3. CAD - Continue aspirin, Lipitor, Ranexa 4. Cirrhosis with portal hypertensive gastropathy, ascites, hepatic encephalopathy - Continue lactulose, Corgard (held secondary to bradycardia and hypotension) 5. Anemia - Transfused 1 unit PRBCs this admission - Stool positive for occult blood - EGD showed portal hypertensive gastropathy and gastritis with no evidence of bleeding - Continue Protonix - Avoid NSAIDs 6. Acute kidney injury - Resolved 7. Hypotension - Continue Midodrine - Antihypertensive meds held 8. Thrombocytopenia - Platelets stable 9. HTN 10. Hyperlipidemia - Continue Lipitor 11. Obesity with BMI 35.2 12. Disposition - Plan for discharge to short term rehab for wound VAC, IV antibiotics Visit type - Emergency Visit Emergency Visit: Yes ED Registration Date: 09/30/17 Care time: The patient presented to the Emergency Department on the above date and was hospitalized for further evaluation of their emergent condition. - New Patient This patient is new to me today: Yes Date on this admission: 10/08/17 - Critical Care Critical Care patient: No - Discharge Referral Referred to [facility] No
--- NOTE | 2017-10-08 12:05 | PN ---
Progress Note, Physician History of Present Illness: stable no issues - Current Medication List Current Medications: Active Medications Acetaminophen (Tylenol -) 650 mg PO Q4H PRN PRN Reason: FEVER Aspirin (Asa -) 81 mg PO DAILY [facility] Last Admin: 10/08/17 09:37 Dose: 81 mg Atorvastatin Calcium (Lipitor -) 10 mg PO HS [facility] Last Admin: 10/07/17 21:05 Dose: 10 mg Collagenase (Santyl -) 1 applic TP DAILY [facility] Last Admin: 10/07/17 21:03 Dose: 1 applic Fentanyl (Sublimaze Injection -) 25 mcg IVPUSH [id number] PRN PRN Reason: PAIN-PACU ORDER X 4 DOSES ONLY Heparin Sodium (Porcine) (Heparin -) 5,000 unit SQ BID [facility] Last Admin: 10/08/17 09:38 Dose: 5,000 unit Piperacillin Sod/Tazobactam (Sod 3.375 gm/ Sodium Chloride) 100 mls @ 200 mls/ hr IVPB Q8H-IV [facility]; Protocol Last Admin: 10/08/17 09:18 Dose: 200 mls/hr Insulin Aspart (Novolog Vial Sliding Scale -) 1 vial SQ ACHS [facility]; Protocol Last Admin: 10/08/17 11:43 Dose: Not Given Insulin Detemir (Levemir Vial) 25 units SQ AM [facility] Last Admin: 10/08/17 06:28 Dose: 25 unit Insulin Detemir (Levemir Vial) 10 units SQ HS [facility] Last Admin: 10/07/17 21:07 Dose: 10 unit Lactobacillus Acidophilus (Bacid -) 1 tab PO BID [facility] Last Admin: 10/08/17 09:22 Dose: 1 tab Lactulose (Cephulac (Oral Use)) 20 gm PO QID [facility] Last Admin: 10/08/17 09:20 Dose: 20 gm Midodrine (Proamatine -) 5 mg PO TID-MID [facility] Last Admin: 10/08/17 09:38 Dose: 5 mg Multivitamins/Minerals/Vitamin C (Tab-A-Vit -) 1 tab PO DAILY [facility] Last Admin: 10/08/17 09:19 Dose: 1 tab Nadolol (Corgard -) 20 mg PO DAILY [facility] Last Admin: 10/05/17 11:03 Dose: Not Given Ondansetron HCl (Zofran Injection) 4 mg IVPUSH Q6H PRN PRN Reason: NAUSEA AND/OR VOMITING Pantoprazole Sodium (Protonix -) 40 mg PO DAILY [facility] Last Admin: 10/08/17 09:19 Dose: 40 mg Ranolazine (Ranexa -) 1,000 mg PO BID [facility] Last Admin: 10/08/17 09:19 Dose: 1,000 mg Tramadol HCl (Ultram -) 50 mg PO Q8H PRN PRN Reason: PAIN LEVEL 6-10 Last Admin: 10/05/17 15:56 Dose: 50 mg - Objective Vital Signs: Vital Signs Temperature 98 F 10/08/17 10:00 Pulse Rate 65 10/08/17 10:00 Respiratory Rate 18 10/08/17 10:00 Blood Pressure 143/77 10/08/17 10:00 O2 Sat by Pulse Oximetry (%) 97 10/07/17 21:00 Constitutional: Yes: No Distress, Calm Cardiovascular: Yes: Regular Rate and Rhythm Respiratory: Yes: Regular, CTA Bilaterally Gastrointestinal: Yes: Normal Bowel Sounds, Soft Musculoskeletal: Yes: WNL Extremities: Yes: WNL Neurological: Yes: Alert, Oriented Psychiatric: Yes: Alert, Oriented Labs: CBC, BMP 10/07/17 06:00 10/07/17 06:00 INR, PTT INR 1.14 (0.82-1.09) 10/07/17 06:00 Assessment/Plan Problem List - Problems (1) Controlled diabetes mellitus with diabetic peripheral angiopathy without gangrene, without long-term current use of insulin Code(s): E11.51 - TYPE 2 DIABETES W DIABETIC PERIPHERAL ANGIOPATH W/O GANGRENE (2) Diabetic ulcer of left foot Code(s): E11.621 - TYPE 2 DIABETES MELLITUS WITH FOOT ULCER; L97.529 - NON- PRESSURE CHRONIC ULCER OTH PRT LEFT FOOT W UNSP SEVERITY Qualifiers: Diabetic foot ulcer location: other Diabetes mellitus type: type 1 Non- pressure ulcer stage: with other severity Qualified Code(s): E10.621 - Type 1 diabetes mellitus with foot ulcer; L97.528 - Non-pressure chronic ulcer of other part of left foot with other specified severity; L97.528 - Non-pressure chronic ulcer of other part of left foot with other specified severity; L97.528 - Non-pressure chronic ulcer of other part of left foot with other specified severity; L97.528 - Non-pressure chronic ulcer of other part of left foot with other specified severity (3) Abdominal distension Code(s): R14.0 - ABDOMINAL DISTENSION (GASEOUS) (4) Abscess of external ear Code(s): H60.00 - ABSCESS OF EXTERNAL EAR, UNSPECIFIED EAR Qualifiers: Laterality: left Qualified Code(s): H60.02 - Abscess of left external ear (5) Anemia Code(s): D64.9 - ANEMIA, UNSPECIFIED (6) Ascites due to alcoholic cirrhosis Code(s): K70.31 - ALCOHOLIC CIRRHOSIS OF LIVER WITH ASCITES (7) Atherosclerosis Code(s): I70.90 - UNSPECIFIED ATHEROSCLEROSIS [place] LE gangrene/PVD/Ischemia/Osteomylitis Hx of Hepatic Ca Anemia/Thrombocytopenia plan patient stable no new issues still awaiting the cx report patient will need 4 more weeks of iv abx
[2017-10-08] MEDS: COLLAGENASE CLOSTRIDIUM HIST. 30 GRAMS TUBE TP SCH (15:03)
[2017-10-08] MEDS: traMADol HCL 50 MG TABLET PO PRN (16:51)
[2017-10-08] MEDS ORDERED: INSULIN (NOVOLOG) ASPART 100 UNITS/ML 10ML VIAL ONE (21:31)
[2017-10-08] MEDS: ATORVASTATIN CA 10 MG TABLET (FP) PO SCH (22:05)
[2017-10-09] MEDS ORDERED: PIPERACILLIN/TAZOBACTAM 3.375 GM VIAL IVPB ONE ×4 (00:04→23:48)
[2017-10-09] MEDS ORDERED: SODIUM CHLORIDE 100 ML IVPB ONE ×4 (00:04→23:48)
[2017-10-09] MEDS: PIPERACILLIN/TAZOB 3.375 GM 3.375 GM in SODIUM CHLORIDE 100 ML IVPB SCH ×3 (01:13→17:37)
[2017-10-09] MEDS: INSULIN SLIDING SCALE (NOVOLOG) 1 VIAL SQ SCH ×4 (06:27→22:20)
[2017-10-09] MEDS: INSULIN (LEVEMIR) 100 UNITS/ML UNITS SQ SCH ×2 (06:28→22:19)
[2017-10-09] MEDS ORDERED: INSULIN (LEVEMIR) 100 UNITS/ML UNITS SQ ONE (06:40)
[2017-10-09] MEDS ORDERED: INSULIN (NOVOLOG) ASPART 100 UNITS/ML 10ML VIAL ONE (06:40)
[2017-10-09 07:59] LABS: HEMOGLOBIN 8.3 GM/dL (11.7-16.9); MCH 33.1 pg (25.7-33.7); MCHC 34.7 g/dl (32.0-35.9); MEAN CELL VOLUME 95.4 fl (80-96); MEAN PLT VOLUME 7.1 fl (7.5-11.1); PLATELET COUNT 89 K/MM3 (134-434); RBC 2.52 M/mm3 (4.00-5.60); RDW 16.4 % (11.9-15.9); WHITE BLOOD COUNT 4.3 K/mm3 (4.0-10.0)
[2017-10-09 08:53] LABS: ANION GAP 5 (8-16); BLOOD UREA NITROGEN 12 mg/dL (7-18); CHLORIDE 109 mmol/L (98-107); CO2 25 mmol/L (21-32); CREATININE 1.1 mg/dL (0.7-1.3); GLUCOSE,RANDOM 94 mg/dL (74-106); POTASSIUM 4.4 mmol/L (3.5-5.1); SODIUM 139 mmol/L (136-145)
--- NOTE | 2017-10-09 10:23 | PN ---
Progress Note (short form) - Note Progress Note: Patient seen at bedside NAD, denies f/c/n/v, denies pain to left foot. WBC 4.3 Dressing c/d/i left foot wound lateral foot, mostly fibrotic, no exposed bone, no drainage. minimal erythema, sutures intact A/P diabetic foot infection left s/p amputation plan for d/c with iv abx and VAC f/u Dr. Aguirre in [facility]
[2017-10-09] MEDS ORDERED: RANOLAZINE E.R. 500 MG TABLET (FP) ONE ×2 (10:30→21:55)
[2017-10-09] MEDS: RANOLAZINE E.R. 1,000 MG TABLET (FP) PO SCH ×2 (10:33→22:21)
[2017-10-09] MEDS: LACTULOSE 20 GM/30 ML UDC (FOR ORAL USE ONLY) PO SCH ×4 (10:34→22:17)
[2017-10-09] MEDS: PANTOPRAZOLE 40 MG TABLET (FP) PO SCH (10:34)
[2017-10-09] MEDS: HEPARIN NA (PORCINE) 5,000 UNITS/ML 1ML VIAL SQ SCH ×2 (10:34→22:17)
[2017-10-09] MEDS: LACTOBACILLUS ACIDOPHILUS 1 TABLET PO SCH ×2 (10:34→22:17)
[2017-10-09] MEDS: ASPIRIN 81 MG CHEWABLE TABLETS PO SCH (10:34)
[2017-10-09] MEDS: MULTIVITAMINS (DAILY MVI) TABLET (FP) PO SCH (10:34)
[2017-10-09] MEDS ORDERED: PT OWN MED DRAWER 7, Y5N ONE (10:37)
[2017-10-09] MEDS: MIDODRINE HCL 5 MG TABLET PO SCH ×3 (10:38→17:36)
[2017-10-09] MEDS: COLLAGENASE CLOSTRIDIUM HIST. 30 GRAMS TUBE TP SCH (10:40)
--- NOTE | 2017-10-09 11:21 | PN ---
Progress Note, Physician History of Present Illness: stable no issues awaiting for wound vac tolerating abx - Current Medication List Current Medications: Active Medications Acetaminophen (Tylenol -) 650 mg PO Q4H PRN PRN Reason: FEVER Aspirin (Asa -) 81 mg PO DAILY [facility] Last Admin: 10/09/17 10:34 Dose: 81 mg Atorvastatin Calcium (Lipitor -) 10 mg PO HS [facility] Last Admin: 10/08/17 22:05 Dose: 10 mg Collagenase (Santyl -) 1 applic TP DAILY [facility] Last Admin: 10/09/17 10:40 Dose: 1 applic Fentanyl (Sublimaze Injection -) 25 mcg IVPUSH [id number] PRN PRN Reason: PAIN-PACU ORDER X 4 DOSES ONLY Heparin Sodium (Porcine) (Heparin -) 5,000 unit SQ BID [facility] Last Admin: 10/09/17 10:34 Dose: 5,000 unit Piperacillin Sod/Tazobactam (Sod 3.375 gm/ Sodium Chloride) 100 mls @ 200 mls/ hr IVPB Q8H-IV [facility]; Protocol Last Admin: 10/09/17 10:33 Dose: 200 mls/hr Insulin Aspart (Novolog Vial Sliding Scale -) 1 vial SQ ACHS [facility]; Protocol Last Admin: 10/09/17 06:27 Dose: Not Given Insulin Detemir (Levemir Vial) 25 units SQ AM [facility] Last Admin: 10/09/17 06:28 Dose: 25 unit Insulin Detemir (Levemir Vial) 10 units SQ HS [facility] Last Admin: 10/08/17 22:06 Dose: 10 unit Lactobacillus Acidophilus (Bacid -) 1 tab PO BID [facility] Last Admin: 10/09/17 10:34 Dose: 1 tab Lactulose (Cephulac (Oral Use)) 20 gm PO QID [facility] Last Admin: 10/09/17 10:34 Dose: 20 gm Midodrine (Proamatine -) 5 mg PO TID-MID [facility] Last Admin: 10/09/17 10:38 Dose: 5 mg Multivitamins/Minerals/Vitamin C (Tab-A-Vit -) 1 tab PO DAILY [facility] Last Admin: 10/09/17 10:34 Dose: 1 tab Nadolol (Corgard -) 20 mg PO DAILY [facility] Last Admin: 10/05/17 11:03 Dose: Not Given Ondansetron HCl (Zofran Injection) 4 mg IVPUSH Q6H PRN PRN Reason: NAUSEA AND/OR VOMITING Pantoprazole Sodium (Protonix -) 40 mg PO DAILY [facility] Last Admin: 10/09/17 10:34 Dose: 40 mg Ranolazine (Ranexa -) 1,000 mg PO BID [facility] Last Admin: 10/09/17 10:33 Dose: 1,000 mg - Objective Vital Signs: Vital Signs Temperature 98 F 10/09/17 10:00 Pulse Rate 57 L 10/09/17 10:00 Respiratory Rate 18 10/09/17 10:00 Blood Pressure 126/71 10/09/17 10:00 O2 Sat by Pulse Oximetry (%) 97 10/08/17 21:00 Constitutional: Yes: No Distress, Calm Cardiovascular: Yes: Regular Rate and Rhythm Respiratory: Yes: Regular, CTA Bilaterally Gastrointestinal: Yes: Normal Bowel Sounds, Soft Musculoskeletal: Yes: WNL Extremities: Yes: Other Wound/Incision: Yes: Dressing Dry and Intact Neurological: Yes: Alert, Oriented Psychiatric: Yes: Alert, Oriented Labs: CBC, BMP 10/09/17 06:25 10/09/17 06:25 INR, PTT INR 1.14 (0.82-1.09) 10/07/17 06:00 Assessment/Plan Problem List - Problems (1) Controlled diabetes mellitus with diabetic peripheral angiopathy without gangrene, without long-term current use of insulin Code(s): E11.51 - TYPE 2 DIABETES W DIABETIC PERIPHERAL ANGIOPATH W/O GANGRENE (2) Diabetic ulcer of left foot Code(s): E11.621 - TYPE 2 DIABETES MELLITUS WITH FOOT ULCER; L97.529 - NON- PRESSURE CHRONIC ULCER OTH PRT LEFT FOOT W UNSP SEVERITY Qualifiers: Diabetic foot ulcer location: other Diabetes mellitus type: type 1 Non- pressure ulcer stage: with other severity Qualified Code(s): E10.621 - Type 1 diabetes mellitus with foot ulcer; L97.528 - Non-pressure chronic ulcer of other part of left foot with other specified severity; L97.528 - Non-pressure chronic ulcer of other part of left foot with other specified severity; L97.528 - Non-pressure chronic ulcer of other part of left foot with other specified severity; L97.528 - Non-pressure chronic ulcer of other part of left foot with other specified severity (3) Abdominal distension Code(s): R14.0 - ABDOMINAL DISTENSION (GASEOUS) (4) Abscess of external ear Code(s): H60.00 - ABSCESS OF EXTERNAL EAR, UNSPECIFIED EAR Qualifiers: Laterality: left Qualified Code(s): H60.02 - Abscess of left external ear (5) Anemia Code(s): D64.9 - ANEMIA, UNSPECIFIED (6) Ascites due to alcoholic cirrhosis Code(s): K70.31 - ALCOHOLIC CIRRHOSIS OF LIVER WITH ASCITES (7) Atherosclerosis Code(s): I70.90 - UNSPECIFIED ATHEROSCLEROSIS [place] LE gangrene/PVD/Ischemia/Osteomylitis Hx of Hepatic Ca Anemia/Thrombocytopenia plan patient stable no new issues cx report noted patient will need 4 more weeks of iv abx
--- NOTE | 2017-10-09 11:25 | PN ---
Physical Exam: SUBJECTIVE: Patient seen and examined. No complaints. OBJECTIVE: Vital Signs Period Temp Pulse Resp BP Sys/Ferrell Pulse Ox Last 24 Hr 98 F-98.6 F 53-60 18-20 126-153/69-71 97 GENERAL: The patient is awake, alert, confused, in no acute distress. LUNGS: Breath sounds equal, clear to auscultation bilaterally, no wheezes, no crackles, no accessory muscle use. HEART: Regular rate and rhythm, S1, S2 without murmur, rub or gallop. ABDOMEN: Obese, soft, nontender, nondistended, normoactive bowel sounds, no guarding, no rebound, no masses. EXTREMITIES: No edema. Left foot wrapped. Laboratory Results - last 24 hr 10/08/17 10/08/17 10/08/17 11:33 17:13 22:03 WBC RBC Hgb Hct MCV MCH MCHC RDW Plt Count MPV Sodium Potassium Chloride Carbon Dioxide Anion Gap BUN Creatinine POC Glucometer 144 160 179 Random Glucose Calcium 10/09/17 10/09/17 10/09/17 06:20 06:25 06:25 WBC 4.3 RBC 2.52 L Hgb 8.3 L Hct 24.0 L MCV 95.4 MCH 33.1 MCHC 34.7 RDW 16.4 H Plt Count 89 L MPV 7.1 L Sodium 139 Potassium 4.4 Chloride 109 H Carbon Dioxide 25 Anion Gap 5 L BUN 12 Creatinine 1.1 POC Glucometer 105 Random Glucose 94 Calcium 8.0 L Active Medications Generic Name Dose Route Start Last Admin Trade Name Freq PRN Reason Stop Dose Admin Acetaminophen 650 mg 10/04/17 18:29 Tylenol - PO Q4H PRN FEVER Aspirin 81 mg 10/05/17 10:00 10/09/17 10:34 Asa - PO 81 mg DAILY J CARLOS Administration Atorvastatin Calcium 10 mg 10/04/17 22:00 10/08/17 22:05 Lipitor - PO 10 mg HS J CARLOS Administration Collagenase 1 applic 10/05/17 10:00 10/09/17 10:40 Santyl - TP 1 applic DAILY J CARLOS Administration Fentanyl 25 mcg 10/04/17 19:20 Sublimaze Injection - IVPUSH [id number] PRN PAIN-PACU ORDER X 4 DOSES ONLY Heparin Sodium (Porcine) 5,000 unit 10/06/17 22:00 10/09/17 10:34 Heparin - SQ 5,000 unit BID J CARLOS Administration Piperacillin Sod/Tazobactam 100 mls @ 200 mls/hr 10/05/17 02:00 10/09/17 10: 33 Sod 3.375 gm/ Sodium Chloride IVPB 200 mls/hr Q8H-IV J CARLOS Administration Protocol Insulin Aspart 1 vial 10/04/17 22:00 10/09/17 06:27 Novolog Vial Sliding Scale - SQ Not Given ACHS [facility] Protocol Insulin Detemir 25 units 10/05/17 07:00 10/09/17 06:28 Levemir Vial SQ 25 unit AM J CARLOS Administration Insulin Detemir 10 units 10/04/17 22:00 10/08/17 22:06 Levemir Vial SQ 10 unit HS J CARLOS Administration Lactobacillus Acidophilus 1 tab 10/04/17 22:00 10/09/17 10:34 Bacid - PO 1 tab BID J CARLOS Administration Lactulose 20 gm 10/07/17 18:00 10/09/17 10:34 Cephulac (Oral Use) PO 20 gm QID J CARLOS Administration Midodrine 5 mg 10/05/17 10:00 10/09/17 10:38 Proamatine - PO 5 mg TID-MID J CARLOS Administration Multivitamins/Minerals/Vitamin C 1 tab 10/05/17 10:00 10/09/17 10:34 Tab-A-Vit - PO 1 tab DAILY J CARLOS Administration Nadolol 20 mg 10/05/17 10:00 10/05/17 11:03 Corgard - PO Not Given DAILY J CARLOS Ondansetron HCl 4 mg 10/04/17 19:20 Zofran Injection IVPUSH Q6H PRN NAUSEA AND/OR VOMITING Pantoprazole Sodium 40 mg 10/05/17 10:00 10/09/17 10:34 Protonix - PO 40 mg DAILY J CARLOS Administration Ranolazine 1,000 mg 10/04/17 22:00 10/09/17 10:33 Ranexa - PO 1,000 mg BID J CARLOS Administration ASSESSMENT/PLAN: 1. Infected left foot diabetic ulcer - s/p left 5th toe amputation, bone biopsy, culture 09/30 - Bone culture growing Enterobacer cloacae, Enterococcus faeclis, Prevotella bivia - Wound culture growing Enterobacter cloacae, Actinomyces israelii - s/p left foot debridement and lavage 10/04 - Culture growing Kluyvera ascorbata - Continue Zosyn - ID follow up - Continue wound care with Santyl - Awaiting wound VAC 2. Type 2 DM with peripheral neuropathy - Continue Levemir, Novolog sliding scale 3. CAD - Continue aspirin, Lipitor, Ranexa 4. Cirrhosis with portal hypertensive gastropathy, ascites, hepatic encephalopathy - Continue lactulose, Corgard (held secondary to bradycardia and hypotension) - Check ammonia level 5. Anemia - Transfused 1 unit PRBCs this admission - Stool positive for occult blood - Hemoglobin stable - EGD showed portal hypertensive gastropathy and gastritis with no evidence of bleeding - Continue Protonix - Avoid NSAIDs 6. Acute kidney injury - Resolved 7. Hypotension - Continue Midodrine - Antihypertensive meds held 8. Thrombocytopenia - Platelets stable 9. HTN 10. Hyperlipidemia - Continue Lipitor 11. Obesity with BMI 35.2 12. Disposition - Plan for discharge to short term rehab for wound VAC, IV antibiotics Visit type - Emergency Visit Emergency Visit: Yes ED Registration Date: 09/30/17 Care time: The patient presented to the Emergency Department on the above date and was hospitalized for further evaluation of their emergent condition. - New Patient This patient is new to me today: No - Critical Care Critical Care patient: No - Discharge Referral Referred to [facility] No
[2017-10-09] MEDS: ATORVASTATIN CA 10 MG TABLET (FP) PO SCH (22:20)
[2017-10-10] MEDS: PIPERACILLIN/TAZOB 3.375 GM 3.375 GM in SODIUM CHLORIDE 100 ML IVPB SCH ×3 (01:41→19:35)
[2017-10-10] MEDS: INSULIN SLIDING SCALE (NOVOLOG) 1 VIAL SQ SCH ×4 (06:16→21:11)
[2017-10-10] MEDS: INSULIN (LEVEMIR) 100 UNITS/ML UNITS SQ SCH ×2 (06:33→21:10)
[2017-10-10] MEDS ORDERED: INSULIN (LEVEMIR) 100 UNITS/ML UNITS SQ ONE (06:34)
[2017-10-10] MEDS ORDERED: INSULIN (NOVOLOG) ASPART 100 UNITS/ML 10ML VIAL ONE ×2 (06:34→19:46)
[2017-10-10] MEDS ORDERED: SODIUM CHLORIDE 100 ML IVPB ONE ×2 (09:29→19:15)
[2017-10-10] MEDS ORDERED: RANOLAZINE E.R. 500 MG TABLET (FP) ONE (09:29)
[2017-10-10] MEDS ORDERED: PIPERACILLIN/TAZOBACTAM 3.375 GM VIAL IVPB ONE ×2 (09:29→19:15)
[2017-10-10] MEDS: RANOLAZINE E.R. 1,000 MG TABLET (FP) PO SCH ×2 (09:40→21:07)
[2017-10-10] MEDS: PANTOPRAZOLE 40 MG TABLET (FP) PO SCH (09:41)
[2017-10-10] MEDS: ASPIRIN 81 MG CHEWABLE TABLETS PO SCH (09:41)
[2017-10-10] MEDS: MULTIVITAMINS (DAILY MVI) TABLET (FP) PO SCH (09:41)
[2017-10-10] MEDS: HEPARIN NA (PORCINE) 5,000 UNITS/ML 1ML VIAL SQ SCH ×2 (09:41→21:08)
[2017-10-10] MEDS: LACTOBACILLUS ACIDOPHILUS 1 TABLET PO SCH ×2 (09:41→21:07)
[2017-10-10] MEDS: COLLAGENASE CLOSTRIDIUM HIST. 30 GRAMS TUBE TP SCH (09:42)
[2017-10-10] MEDS: LACTULOSE 20 GM/30 ML UDC (FOR ORAL USE ONLY) PO SCH ×4 (09:42→21:08)
[2017-10-10] MEDS ORDERED: PT OWN MED DRAWER 7, Y5N ONE (09:45)
[2017-10-10] MEDS: MIDODRINE HCL 5 MG TABLET PO SCH ×3 (09:45→18:42)
--- NOTE | 2017-10-10 10:19 | PN ---
Progress Note, Physician - Current Medication List Current Medications: Active Medications Acetaminophen (Tylenol -) 650 mg PO Q4H PRN PRN Reason: FEVER Aspirin (Asa -) 81 mg PO DAILY [facility] Last Admin: 10/10/17 09:41 Dose: 81 mg Atorvastatin Calcium (Lipitor -) 10 mg PO HS [facility] Last Admin: 10/09/17 22:20 Dose: 10 mg Collagenase (Santyl -) 1 applic TP DAILY [facility] Last Admin: 10/10/17 09:42 Dose: 1 applic Heparin Sodium (Porcine) (Heparin -) 5,000 unit SQ BID [facility] Last Admin: 10/10/17 09:41 Dose: 5,000 unit Piperacillin Sod/Tazobactam (Sod 3.375 gm/ Sodium Chloride) 100 mls @ 200 mls/ hr IVPB Q8H-IV [facility]; Protocol Last Admin: 10/10/17 09:46 Dose: 200 mls/hr Insulin Aspart (Novolog Vial Sliding Scale -) 1 vial SQ ACHS [facility]; Protocol Last Admin: 10/10/17 06:16 Dose: Not Given Insulin Detemir (Levemir Vial) 25 units SQ AM [facility] Last Admin: 10/10/17 06:33 Dose: 25 unit Insulin Detemir (Levemir Vial) 10 units SQ HS [facility] Last Admin: 10/09/17 22:19 Dose: 10 unit Lactobacillus Acidophilus (Bacid -) 1 tab PO BID [facility] Last Admin: 10/10/17 09:41 Dose: 1 tab Lactulose (Cephulac (Oral Use)) 20 gm PO QID [facility] Last Admin: 10/10/17 09:42 Dose: 20 gm Midodrine (Proamatine -) 5 mg PO TID-MID [facility] Last Admin: 10/10/17 09:45 Dose: 5 mg Multivitamins/Minerals/Vitamin C (Tab-A-Vit -) 1 tab PO DAILY [facility] Last Admin: 10/10/17 09:41 Dose: 1 tab Nadolol (Corgard -) 20 mg PO DAILY [facility] Last Admin: 10/05/17 11:03 Dose: Not Given Ondansetron HCl (Zofran Injection) 4 mg IVPUSH Q6H PRN PRN Reason: NAUSEA AND/OR VOMITING Pantoprazole Sodium (Protonix -) 40 mg PO DAILY [facility] Last Admin: 10/10/17 09:41 Dose: 40 mg Ranolazine (Ranexa -) 1,000 mg PO BID J CARLOS Last Admin: 10/10/17 09:40 Dose: 1,000 mg - Objective Vital Signs: Vital Signs Temperature 98 F 10/10/17 10:00 Pulse Rate 60 10/10/17 10:00 Respiratory Rate 18 10/10/17 10:00 Blood Pressure 143/70 10/10/17 10:00 O2 Sat by Pulse Oximetry (%) 97 10/10/17 09:00 Cardiovascular: Yes: S1, S2 Respiratory: Yes: Regular, CTA Bilaterally Gastrointestinal: Yes: Normal Bowel Sounds, Soft Labs: CBC, BMP 10/09/17 06:25 10/09/17 06:25 INR, PTT INR 1.14 (0.82-1.09) 10/07/17 06:00 Problem List - Problems (1) Sepsis Code(s): A41.9 - SEPSIS, UNSPECIFIED ORGANISM (2) Diabetic ulcer of left foot Code(s): E11.621 - TYPE 2 DIABETES MELLITUS WITH FOOT ULCER; L97.529 - NON- PRESSURE CHRONIC ULCER OTH PRT LEFT FOOT W UNSP SEVERITY Qualifiers: Diabetic foot ulcer location: other Diabetes mellitus type: type 1 Non- pressure ulcer stage: with other severity Qualified Code(s): E10.621 - Type 1 diabetes mellitus with foot ulcer; L97.528 - Non-pressure chronic ulcer of other part of left foot with other specified severity (3) Diabetes mellitus, insulin dependent (IDDM), uncontrolled Code(s): E10.65 - TYPE 1 DIABETES MELLITUS WITH HYPERGLYCEMIA (4) HCC (hepatocellular carcinoma) Code(s): C22.0 - LIVER CELL CARCINOMA (5) Anemia Code(s): D64.9 - ANEMIA, UNSPECIFIED Assessment/Plan - Problems (1) Diabetes type 2, uncontrolled Assessment/Plan: -BGM -Diabetic diet -A1c 5.6 -Insulin long and short acting, adjust by endocrinology -RD consult -Endocrinology on board Code(s): E11.65 - TYPE 2 DIABETES MELLITUS WITH HYPERGLYCEMIA Qualifiers: Diabetes mellitus complication status: with circulatory complication Diabetes mellitus complication detail: with other circulatory complications (2) CAD (coronary artery disease) Assessment/Plan: -aspirin 81 mg po daily -Lipitor 10 mg po HS -Seen by cardiology -Nadolol on hold for bradycardia -On Ranexa 550 mg po BID Code(s): I25.10 - ATHSCL HEART DISEASE OF [place] CORONARY ARTERY W/O ANG PCTRS (3) Anemia Assessment/Plan: -2/2 CKD chronic disease -received 1 unit PRBC this admission -normal transfusion parameters -Stool Guaiac positive -Iron profile normal -thyroid profile, B 12, folate okay -EGD today Code(s): D64.9 - ANEMIA, UNSPECIFIED (4) Ascites Assessment/Plan: -On U/S abdomen- moderate ascites -Chronic -GI consult Code(s): R18.8 - OTHER ASCITES Qualifiers: Ascites type: other type Qualified Code(s): R18.8 - Other ascites (5) Cellulitis of toe, left Assessment/Plan: -On IV Zosyn 3.375 Q8H -Podiatry consult -debridement done yesterday by Podiatry -dressing changed podiatry -Awaiting wound vac Code(s): L03.032 - CELLULITIS OF LEFT TOE (6) SHANEKA (acute kidney injury) Assessment/Plan: -Seen by Nephrology -Likely secondary to use of JOSI+NSAID's -hold BP meds -Avoid usage of nsaid's at this time -midodrine 5 mg po TID-MID -Labs in AM -Cardiology to decide when to start Nadolol Code(s): N17.9 - ACUTE KIDNEY FAILURE, UNSPECIFIED
--- NOTE | 2017-10-10 12:13 | PN ---
Progress Note, Physician History of Present Illness: stable no new issues - Current Medication List Current Medications: Active Medications Acetaminophen (Tylenol -) 650 mg PO Q4H PRN PRN Reason: FEVER Aspirin (Asa -) 81 mg PO DAILY [facility] Last Admin: 10/10/17 09:41 Dose: 81 mg Atorvastatin Calcium (Lipitor -) 10 mg PO HS [facility] Last Admin: 10/09/17 22:20 Dose: 10 mg Collagenase (Santyl -) 1 applic TP DAILY [facility] Last Admin: 10/10/17 09:42 Dose: 1 applic Heparin Sodium (Porcine) (Heparin -) 5,000 unit SQ BID [facility] Last Admin: 10/10/17 09:41 Dose: 5,000 unit Piperacillin Sod/Tazobactam (Sod 3.375 gm/ Sodium Chloride) 100 mls @ 200 mls/ hr IVPB Q8H-IV [facility]; Protocol Last Admin: 10/10/17 09:46 Dose: 200 mls/hr Insulin Aspart (Novolog Vial Sliding Scale -) 1 vial SQ ACHS [facility]; Protocol Last Admin: 10/10/17 11:56 Dose: Not Given Insulin Detemir (Levemir Vial) 25 units SQ AM [facility] Last Admin: 10/10/17 06:33 Dose: 25 unit Insulin Detemir (Levemir Vial) 10 units SQ HS [facility] Last Admin: 10/09/17 22:19 Dose: 10 unit Lactobacillus Acidophilus (Bacid -) 1 tab PO BID [facility] Last Admin: 10/10/17 09:41 Dose: 1 tab Lactulose (Cephulac (Oral Use)) 20 gm PO QID [facility] Last Admin: 10/10/17 09:42 Dose: 20 gm Midodrine (Proamatine -) 5 mg PO TID-MID [facility] Last Admin: 10/10/17 09:45 Dose: 5 mg Multivitamins/Minerals/Vitamin C (Tab-A-Vit -) 1 tab PO DAILY [facility] Last Admin: 10/10/17 09:41 Dose: 1 tab Nadolol (Corgard -) 20 mg PO DAILY [facility] Last Admin: 10/05/17 11:03 Dose: Not Given Ondansetron HCl (Zofran Injection) 4 mg IVPUSH Q6H PRN PRN Reason: NAUSEA AND/OR VOMITING Pantoprazole Sodium (Protonix -) 40 mg PO DAILY [facility] Last Admin: 10/10/17 09:41 Dose: 40 mg Ranolazine (Ranexa -) 1,000 mg PO BID [facility] Last Admin: 10/10/17 09:40 Dose: 1,000 mg - Objective Vital Signs: Vital Signs Temperature 98 F 10/10/17 11:57 Pulse Rate 63 10/10/17 11:57 Respiratory Rate 18 10/10/17 11:57 Blood Pressure 147/79 10/10/17 11:57 O2 Sat by Pulse Oximetry (%) 97 10/10/17 09:00 Constitutional: Yes: No Distress, Calm Cardiovascular: Yes: Regular Rate and Rhythm Respiratory: Yes: Regular, CTA Bilaterally Gastrointestinal: Yes: Normal Bowel Sounds, Soft Musculoskeletal: Yes: WNL Extremities: Yes: Other Wound/Incision: Yes: Dressing Dry and Intact Neurological: Yes: Alert, Oriented Psychiatric: Yes: Alert, Oriented Labs: CBC, BMP 10/09/17 06:25 10/09/17 06:25 INR, PTT INR 1.14 (0.82-1.09) 10/07/17 06:00 Assessment/Plan Problem List - Problems (1) Controlled diabetes mellitus with diabetic peripheral angiopathy without gangrene, without long-term current use of insulin Code(s): E11.51 - TYPE 2 DIABETES W DIABETIC PERIPHERAL ANGIOPATH W/O GANGRENE (2) Diabetic ulcer of left foot Code(s): E11.621 - TYPE 2 DIABETES MELLITUS WITH FOOT ULCER; L97.529 - NON- PRESSURE CHRONIC ULCER OTH PRT LEFT FOOT W UNSP SEVERITY Qualifiers: Diabetic foot ulcer location: other Diabetes mellitus type: type 1 Non- pressure ulcer stage: with other severity Qualified Code(s): E10.621 - Type 1 diabetes mellitus with foot ulcer; L97.528 - Non-pressure chronic ulcer of other part of left foot with other specified severity; L97.528 - Non-pressure chronic ulcer of other part of left foot with other specified severity; L97.528 - Non-pressure chronic ulcer of other part of left foot with other specified severity; L97.528 - Non-pressure chronic ulcer of other part of left foot with other specified severity (3) Abdominal distension Code(s): R14.0 - ABDOMINAL DISTENSION (GASEOUS) (4) Abscess of external ear Code(s): H60.00 - ABSCESS OF EXTERNAL EAR, UNSPECIFIED EAR Qualifiers: Laterality: left Qualified Code(s): H60.02 - Abscess of left external ear (5) Anemia Code(s): D64.9 - ANEMIA, UNSPECIFIED (6) Ascites due to alcoholic cirrhosis Code(s): K70.31 - ALCOHOLIC CIRRHOSIS OF LIVER WITH ASCITES (7) Atherosclerosis Code(s): I70.90 - UNSPECIFIED ATHEROSCLEROSIS SHANEKA LE gangrene/PVD/Ischemia/Osteomylitis Hx of Hepatic Ca Anemia/Thrombocytopenia plan patient stable no new issues cx report noted patient will need 4 more weeks of iv abx
[2017-10-10] MEDS: NYSTATIN POWDER 100,000 UNITS/GM - 15 GM TOPICAL POWDER TP SCH (18:41)
[2017-10-10] MEDS: ATORVASTATIN CA 10 MG TABLET (FP) PO SCH (21:09)
--- NOTE | 2017-10-10 22:46 | PN ---
Progress Note (short form) - Note Progress Note: no complaint appetite still weak Current Active Problems SHANEKA (acute kidney injury) (Acute) Ascites (Acute) CKD (chronic kidney disease) (Acute) Controlled diabetes mellitus with diabetic peripheral angiopathy without gangrene, without long-term current use of insulin (Acute) Diabetic ulcer of left foot (Acute) Hepatocellular carcinoma (Acute) 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 (Acute) Sepsis (Acute) Laboratory Results - last 24 hr 10/09/17 10/10/17 10/10/17 22:15 05:40 11:54 POC Glucometer 174 142 190 10/10/17 10/10/17 18:16 21:06 POC Glucometer 186 197 plan: bgm novolog insulin doses levemir 29 units am levemir 10 units pm Problem List - Problems (1) Controlled diabetes mellitus with diabetic peripheral angiopathy without gangrene, without long-term current use of insulin Code(s): E11.51 - TYPE 2 DIABETES W DIABETIC PERIPHERAL ANGIOPATH W/O GANGRENE (2) Diabetic ulcer of left foot Code(s): E11.621 - TYPE 2 DIABETES MELLITUS WITH FOOT ULCER; L97.529 - NON- PRESSURE CHRONIC ULCER OTH PRT LEFT FOOT W UNSP SEVERITY Qualifiers: Diabetic foot ulcer location: other Diabetes mellitus type: type 1 Non- pressure ulcer stage: with other severity Qualified Code(s): E10.621 - Type 1 diabetes mellitus with foot ulcer; L97.528 - Non-pressure chronic ulcer of other part of left foot with other specified severity (3) Abdominal distension Code(s): R14.0 - ABDOMINAL DISTENSION (GASEOUS) (4) Abscess of external ear Code(s): H60.00 - ABSCESS OF EXTERNAL EAR, UNSPECIFIED EAR Qualifiers: Laterality: left Qualified Code(s): H60.02 - Abscess of left external ear (5) Anemia Code(s): D64.9 - ANEMIA, UNSPECIFIED (6) Ascites due to alcoholic cirrhosis Code(s): K70.31 - ALCOHOLIC CIRRHOSIS OF LIVER WITH ASCITES (7) Atherosclerosis Code(s): I70.90 - UNSPECIFIED ATHEROSCLEROSIS
[2017-10-11] MEDS ORDERED: PIPERACILLIN/TAZOBACTAM 3.375 GM VIAL IVPB ONE ×3 (00:17→17:07)
[2017-10-11] MEDS ORDERED: SODIUM CHLORIDE 100 ML IVPB ONE ×3 (00:18→17:07)
[2017-10-11] MEDS: PIPERACILLIN/TAZOB 3.375 GM 3.375 GM in SODIUM CHLORIDE 100 ML IVPB SCH ×3 (01:03→17:21)
[2017-10-11] MEDS: INSULIN SLIDING SCALE (NOVOLOG) 1 VIAL SQ SCH ×4 (06:14→21:15)
[2017-10-11] MEDS: INSULIN (LEVEMIR) 100 UNITS/ML UNITS SQ SCH ×2 (06:17→21:13)
[2017-10-11] MEDS ORDERED: RANOLAZINE E.R. 500 MG TABLET (FP) ONE (09:19)
[2017-10-11] MEDS: LACTOBACILLUS ACIDOPHILUS 1 TABLET PO SCH ×2 (09:44→21:11)
[2017-10-11] MEDS: HEPARIN NA (PORCINE) 5,000 UNITS/ML 1ML VIAL SQ SCH ×3 (09:45→21:12)
[2017-10-11] MEDS: PANTOPRAZOLE 40 MG TABLET (FP) PO SCH (09:45)
[2017-10-11] MEDS: MULTIVITAMINS (DAILY MVI) TABLET (FP) PO SCH (09:45)
[2017-10-11] MEDS: COLLAGENASE CLOSTRIDIUM HIST. 30 GRAMS TUBE TP SCH (09:46)
[2017-10-11] MEDS: NYSTATIN POWDER 100,000 UNITS/GM - 15 GM TOPICAL POWDER TP SCH (09:46)
[2017-10-11] MEDS: ASPIRIN 81 MG CHEWABLE TABLETS PO SCH (09:46)
[2017-10-11] MEDS: LACTULOSE 20 GM/30 ML UDC (FOR ORAL USE ONLY) PO SCH ×3 (09:46→21:12)
[2017-10-11] MEDS: RANOLAZINE E.R. 1,000 MG TABLET (FP) PO SCH ×2 (09:47→21:15)
[2017-10-11] MEDS: MIDODRINE HCL 5 MG TABLET PO SCH ×3 (09:48→17:21)
--- NOTE | 2017-10-11 10:48 | PN ---
Progress Note, Physician Chief Complaint: Left diabetic foot ulcer History of Present Illness: NAD Seen by ID and nephrology IV abx Had debridement yesterday Wound cultures H/H stable Wound vac at [facility] - Current Medication List Current Medications: Active Medications Acetaminophen (Tylenol -) 650 mg PO Q4H PRN PRN Reason: FEVER Aspirin (Asa -) 81 mg PO DAILY [facility] Last Admin: 10/11/17 09:46 Dose: 81 mg Atorvastatin Calcium (Lipitor -) 10 mg PO HS [facility] Last Admin: 10/10/17 21:09 Dose: 10 mg Collagenase (Santyl -) 1 applic TP DAILY [facility] Last Admin: 10/11/17 09:46 Dose: 1 applic Heparin Sodium (Porcine) (Heparin -) 5,000 unit SQ BID [facility] Last Admin: 10/11/17 09:54 Dose: Not Given Piperacillin Sod/Tazobactam (Sod 3.375 gm/ Sodium Chloride) 100 mls @ 200 mls/ hr IVPB Q8H-IV [facility]; Protocol Last Admin: 10/11/17 09:48 Dose: 200 mls/hr Insulin Aspart (Novolog Vial Sliding Scale -) 1 vial SQ ACHS [facility]; Protocol Last Admin: 10/11/17 06:14 Dose: Not Given Insulin Detemir (Levemir Vial) 10 units SQ HS [facility] Last Admin: 10/10/17 21:10 Dose: 10 unit Insulin Detemir (Levemir Vial) 29 units SQ AM [facility] Last Admin: 10/11/17 06:17 Dose: 29 units Lactobacillus Acidophilus (Bacid -) 1 tab PO BID [facility] Last Admin: 10/11/17 09:44 Dose: 1 tab Lactulose (Cephulac (Oral Use)) 20 gm PO QID [facility] Last Admin: 10/11/17 09:46 Dose: Not Given Midodrine (Proamatine -) 5 mg PO TID-MID [facility] Last Admin: 10/11/17 09:48 Dose: 5 mg Multivitamins/Minerals/Vitamin C (Tab-A-Vit -) 1 tab PO DAILY [facility] Last Admin: 10/11/17 09:45 Dose: 1 tab Nadolol (Corgard -) 20 mg PO DAILY [facility] Last Admin: 10/05/17 11:03 Dose: Not Given Nystatin (Nystop Powder -) 1 applic TP DAILY [facility] Last Admin: 10/11/17 09:46 Dose: 1 applic Ondansetron HCl (Zofran Injection) 4 mg IVPUSH Q6H PRN PRN Reason: NAUSEA AND/OR VOMITING Pantoprazole Sodium (Protonix -) 40 mg PO DAILY [facility] Last Admin: 10/11/17 09:45 Dose: 40 mg Ranolazine (Ranexa -) 1,000 mg PO BID [facility] Last Admin: 10/11/17 09:47 Dose: 1,000 mg - Objective Vital Signs: Vital Signs Temperature 98.2 F 10/11/17 10:00 Pulse Rate 63 10/11/17 10:00 Respiratory Rate 18 10/11/17 10:00 Blood Pressure 132/64 10/11/17 10:00 O2 Sat by Pulse Oximetry (%) 96 10/10/17 20:45 Constitutional: Yes: Well Nourished, No Distress, Calm Cardiovascular: Yes: Regular Rate and Rhythm Respiratory: Yes: Regular Gastrointestinal: Yes: Normal Bowel Sounds, Soft Wound/Incision: Yes: Dressing Dry and Intact Neurological: Yes: Alert, Oriented Psychiatric: Yes: Alert, Oriented Labs: CBC, BMP 10/09/17 06:25 10/09/17 06:25 INR, PTT INR 1.14 (0.82-1.09) 10/07/17 06:00 Problem List - Problems (1) Diabetes type 2, uncontrolled Assessment/Plan: -BGM -Diabetic diet -A1c 5.6 -Insulin long and short acting, adjust by endocrinology -RD consult -Endocrinology on board Code(s): E11.65 - TYPE 2 DIABETES MELLITUS WITH HYPERGLYCEMIA Qualifiers: Diabetes mellitus complication status: with circulatory complication Diabetes mellitus complication detail: with other circulatory complications (2) CAD (coronary artery disease) Assessment/Plan: -aspirin 81 mg po daily -Lipitor 10 mg po HS -Seen by cardiology -Nadolol on hold for SBP < 100 mm Hg and HR<60 bpm -On Ranexa 550 mg po BID Code(s): I25.10 - ATHSCL HEART DISEASE OF [place] CORONARY ARTERY W/O ANG PCTRS (3) Anemia Assessment/Plan: -2/2 CKD chronic disease -received 1 unit PRBC this admission -normal transfusion parameters -Stool Guaiac positive -Iron profile normal -thyroid profile, B 12, folate okay -EGD-Grade b Esophageal varices and gastritis Code(s): D64.9 - ANEMIA, UNSPECIFIED (4) Ascites Assessment/Plan: -On U/S abdomen- moderate ascites -Chronic -GI consult Code(s): R18.8 - OTHER ASCITES Qualifiers: Ascites type: other type Qualified Code(s): R18.8 - Other ascites (5) Cellulitis of toe, left Assessment/Plan: -On IV Zosyn 3.375 Q8H -Podiatry consult -debridement done by Podiatry -dressing changed podiatry -wound vac at [facility] Code(s): L03.032 - CELLULITIS OF LEFT TOE (6) SHANEKA (acute kidney injury) Assessment/Plan: -Seen by Nephrology -Likely secondary to use of JOSI+NSAID's -hold BP meds -Avoid usage of nsaid's at this time -midodrine 5 mg po TID-MID -Labs in AM Code(s): N17.9 - ACUTE KIDNEY FAILURE, UNSPECIFIED Assessment/Plan see problem list -DVT prophylaxis
--- NOTE | 2017-10-11 12:42 | PN ---
Progress Note, Physician History of Present Illness: doing well no complaints - Current Medication List Current Medications: Active Medications Acetaminophen (Tylenol -) 650 mg PO Q4H PRN PRN Reason: FEVER Aspirin (Asa -) 81 mg PO DAILY [facility] Last Admin: 10/11/17 09:46 Dose: 81 mg Atorvastatin Calcium (Lipitor -) 10 mg PO HS [facility] Last Admin: 10/10/17 21:09 Dose: 10 mg Collagenase (Santyl -) 1 applic TP DAILY [facility] Last Admin: 10/11/17 09:46 Dose: 1 applic Heparin Sodium (Porcine) (Heparin -) 5,000 unit SQ BID [facility] Last Admin: 10/11/17 09:54 Dose: Not Given Piperacillin Sod/Tazobactam (Sod 3.375 gm/ Sodium Chloride) 100 mls @ 200 mls/ hr IVPB Q8H-IV [facility]; Protocol Last Admin: 10/11/17 09:48 Dose: 200 mls/hr Insulin Aspart (Novolog Vial Sliding Scale -) 1 vial SQ ACHS [facility]; Protocol Last Admin: 10/11/17 11:51 Dose: Not Given Insulin Detemir (Levemir Vial) 10 units SQ HS [facility] Last Admin: 10/10/17 21:10 Dose: 10 unit Insulin Detemir (Levemir Vial) 29 units SQ AM [facility] Last Admin: 10/11/17 06:17 Dose: 29 units Lactobacillus Acidophilus (Bacid -) 1 tab PO BID [facility] Last Admin: 10/11/17 09:44 Dose: 1 tab Lactulose (Cephulac (Oral Use)) 20 gm PO QID [facility] Last Admin: 10/11/17 09:46 Dose: Not Given Midodrine (Proamatine -) 5 mg PO TID-MID [facility] Last Admin: 10/11/17 09:48 Dose: 5 mg Multivitamins/Minerals/Vitamin C (Tab-A-Vit -) 1 tab PO DAILY [facility] Last Admin: 10/11/17 09:45 Dose: 1 tab Nadolol (Corgard -) 20 mg PO DAILY [facility] Last Admin: 10/05/17 11:03 Dose: Not Given Nystatin (Nystop Powder -) 1 applic TP DAILY [facility] Last Admin: 10/11/17 09:46 Dose: 1 applic Ondansetron HCl (Zofran Injection) 4 mg IVPUSH Q6H PRN PRN Reason: NAUSEA AND/OR VOMITING Pantoprazole Sodium (Protonix -) 40 mg PO DAILY [facility] Last Admin: 10/11/17 09:45 Dose: 40 mg Ranolazine (Ranexa -) 1,000 mg PO BID [facility] Last Admin: 10/11/17 09:47 Dose: 1,000 mg - Objective Vital Signs: Vital Signs Temperature 98.2 F 10/11/17 10:00 Pulse Rate 63 10/11/17 10:00 Respiratory Rate 18 10/11/17 10:00 Blood Pressure 132/64 10/11/17 10:00 O2 Sat by Pulse Oximetry (%) 96 10/11/17 09:00 Constitutional: Yes: No Distress, Calm Cardiovascular: Yes: Regular Rate and Rhythm Respiratory: Yes: Regular, CTA Bilaterally Gastrointestinal: Yes: Normal Bowel Sounds, Soft Musculoskeletal: Yes: WNL Extremities: Yes: WNL Wound/Incision: Yes: Dressing Dry and Intact Neurological: Yes: Alert, Oriented Psychiatric: Yes: Alert, Oriented Labs: CBC, BMP 10/09/17 06:25 10/09/17 06:25 INR, PTT INR 1.14 (0.82-1.09) 10/07/17 06:00 Assessment/Plan Problem List - Problems (1) Controlled diabetes mellitus with diabetic peripheral angiopathy without gangrene, without long-term current use of insulin Code(s): E11.51 - TYPE 2 DIABETES W DIABETIC PERIPHERAL ANGIOPATH W/O GANGRENE (2) Diabetic ulcer of left foot Code(s): E11.621 - TYPE 2 DIABETES MELLITUS WITH FOOT ULCER; L97.529 - NON- PRESSURE CHRONIC ULCER OTH PRT LEFT FOOT W UNSP SEVERITY Qualifiers: Diabetic foot ulcer location: other Diabetes mellitus type: type 1 Non- pressure ulcer stage: with other severity Qualified Code(s): E10.621 - Type 1 diabetes mellitus with foot ulcer; L97.528 - Non-pressure chronic ulcer of other part of left foot with other specified severity; L97.528 - Non-pressure chronic ulcer of other part of left foot with other specified severity; L97.528 - Non-pressure chronic ulcer of other part of left foot with other specified severity; L97.528 - Non-pressure chronic ulcer of other part of left foot with other specified severity (3) Abdominal distension Code(s): R14.0 - ABDOMINAL DISTENSION (GASEOUS) (4) Abscess of external ear Code(s): H60.00 - ABSCESS OF EXTERNAL EAR, UNSPECIFIED EAR Qualifiers: Laterality: left Qualified Code(s): H60.02 - Abscess of left external ear (5) Anemia Code(s): D64.9 - ANEMIA, UNSPECIFIED (6) Ascites due to alcoholic cirrhosis Code(s): K70.31 - ALCOHOLIC CIRRHOSIS OF LIVER WITH ASCITES (7) Atherosclerosis Code(s): I70.90 - UNSPECIFIED ATHEROSCLEROSIS SHANEKA LE gangrene/PVD/Ischemia/Osteomylitis Hx of Hepatic Ca Anemia/Thrombocytopenia plan patient stable no new issues cx report noted patient will need 4 more weeks of iv abx await for wound care
--- NOTE | 2017-10-11 13:41 | PN ---
Progress Note (short form) - Note Progress Note: Podiatry F/U: Seen/evaluated at bedside, NAD. Pain controlled, denies F/V/N/C/SOB/CP. Afebrile, VSS. S/p L fifth toe amputation and partial fifth ray resection. GEORGE: L foot: post-surgical diabetic ulcer fifth ray mixed fibrogranular base, exposed tendon, no purulent drainage, no fluctuance, no soft tissue crepitus, no periwound erythema, no ascending cellulitis, no signs of active infection. No gangrenous changes. WBC: 4.3 OR Cx: mixed orgs Imp: 57 year old DM M s/p L fifth toe amputation, partial fifth ray resection 1. IV abx 2. Plan for discharge to SNF. Patient needs wound vac placement. Wound vac at 125 mmHg continuous with black granufoam changed 3x/week. 3. Partial weightbearing L foot with surgical shoe 4. Upon discharge, patient to f/u with me in wound healing center on 10/18/17 in am. [phone]. Angel Aguirre DPM
--- NOTE | 2017-10-11 14:07 | DS ---
Physical Examination Vital Signs: Vital Signs Temperature 98.1 F 10/11/17 13:33 Pulse Rate 56 L 10/11/17 13:33 Respiratory Rate 20 10/11/17 13:33 Blood Pressure 145/75 10/11/17 13:33 O2 Sat by Pulse Oximetry (%) 96 10/11/17 09:00 Constitutional: Yes: Well Nourished, No Distress, Calm Cardiovascular: Yes: Regular Rate and Rhythm Respiratory: Yes: Regular Gastrointestinal: Yes: Normal Bowel Sounds, Soft Musculoskeletal: Yes: WNL Extremities: Yes: Amputation (left toe) Wound/Incision: Yes: Dressing Dry and Intact Neurological: Yes: Alert, Oriented Psychiatric: Yes: Alert, Oriented Labs: CBC, BMP 10/09/17 06:25 10/09/17 06:25 Discharge Summary Reason For Visit: DIABETES MELLITUS TYPE 2W DIABETIC POLYNEUROPATHY Current Active Problems SHANEKA (acute kidney injury) (Acute) Ascites (Acute) CKD (chronic kidney disease) (Acute) Controlled diabetes mellitus with diabetic peripheral angiopathy without gangrene, without long-term current use of insulin (Acute) Diabetic ulcer of left foot (Acute) Hepatocellular carcinoma (Acute) 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 (Acute) Sepsis (Acute) Hospital Course: 57 year old male, accompanied by , with a significant past medical history of anemia, liver cell carcinoma, hepatic encephalopathy (patient is on a liver transplant list), hypertension, hyperlipidemia, CVA, IDDM, gastritis, esophageal varices who presents to the emergency department for left foot wound for about a month. reports patient was being followed at wound care for his foot wound, which has been gradually worsening over the past month. reports increased erythema, warmth, and bloody discharge from wound site. She states patient has left foot numbness at baseline. reports new onset of cough, fever, and fatigue since yesterday, but no chills, headache, or dizziness. Per Dr. Mckeon, patients ID doctor, he was concerned patient was septic and was sent to the ED today for further evaluation and possible debridement. reports patients last meal was at 09:00 this morning. Patient denies any abdominal pain, nausea, vomiting, diarrhea, or constipation. Podiatry instructions: 57 year old DM M s/p L fifth toe amputation, partial fifth ray resection 1. IV abx 2. Plan for discharge to SNF. Patient needs wound vac placement. Wound vac at 125 mmHg continuous with black granufoam changed 3x/week. 3. Partial weightbearing L foot with surgical shoe 4. Upon discharge, patient to f/u with me in wound healing center on 10/18/17 in am. [phone]. Condition: Stable - Instructions Diet, Activity, Other Instructions: -CBC/CMP/ammonia in 1 week -Follow up with Beka Abdullahi MD at Wound care center -IV Zosyn 3.375 Q8H for 4 weeks via PICC line -Low sodium diabetic diet -Lactulose 20 gm QID to make sure patient has at least 3-4 bowel movements/day. Titrate lactulose accordingly. -Hold Nadolol for SBP below 100 mm Hg or HR <60 bpm (used for esophageal Varices ) -Wound vac at 125 mmHg continuous with black granufoam changed 3x/week. -Partial weightbearing L foot with surgical shoe -Upon discharge, patient to f/u with me in wound healing center on 10/18/17 in am. [phone]. Referrals: Beka Aguirre MD [Staff Physician] - Roxanne Duran MD [Primary Care Provider] - Disposition: CUSTODIAL FACILITY - Home Medications Comprehensive Discharge Medication List: Ambulatory Orders Multivitamins [Multivit ([facility] Formulary)] 1 tab PO DAILY 07/15/16 Aspirin [ASA -] 81 mg PO DAILY tab.chew 10/30/16 Atorvastatin Ca [Lipitor] 10 mg PO HS #30 tab 12/11/16 Pantoprazole Sodium [Protonix] 40 mg PO DAILY #30 tab 12/11/16 Collagenase Clostridium Hist. [Santyl] 1 applic TP DAILY #90 oint...g. 05/02/17 Ranolazine [Ranexa] 1,000 mg PO Q12H 09/30/17 Acetaminophen [Tylenol .Regular Strength -] 650 mg PO Q4H PRN tablet 10/11/17 Heparin - 5,000 unit SQ BID vial 10/11/17 Insulin (Levemir) [Levemir Vial] 10 units SQ HS units 10/11/17 Insulin (Levemir) [Levemir Vial] 29 units SQ AM units 10/11/17 Insulin Sliding Scale [Novolog Vial Sliding Scale -] 1 vial SQ ACHS units 10/11 Lactobacillus Acidophilus [Bacid -] 1 tab PO BID tab 10/11/17 Lactulose (Oral Use) [Cephulac -] 20 gm PO QID udc 10/11/17 Midodrine HCl [Proamatine -] 5 mg PO TID-MID tablet 10/11/17 Nadolol 20 mg PO DAILY #30 tab 10/11/17 Nystatin Powder [Nystop Powder -] 1 applic TP DAILY applic 10/11/17 Piperacillin/Tazob 3.375 gm [Zosyn -] 3.375 gm IVPB Q8H-IV vial 10/11/17
[2017-10-11] MEDS: ATORVASTATIN CA 10 MG TABLET (FP) PO SCH (21:14)
[2017-10-12] MEDS ORDERED: PIPERACILLIN/TAZOBACTAM 3.375 GM VIAL IVPB ONE ×2 (00:42→09:33)
[2017-10-12] MEDS ORDERED: SODIUM CHLORIDE 100 ML IVPB ONE ×2 (00:42→09:33)
[2017-10-12] MEDS: PIPERACILLIN/TAZOB 3.375 GM 3.375 GM in SODIUM CHLORIDE 100 ML IVPB SCH ×2 (01:04→09:47)
[2017-10-12] MEDS: INSULIN SLIDING SCALE (NOVOLOG) 1 VIAL SQ SCH ×2 (06:07→13:53)
[2017-10-12] MEDS: LACTULOSE 20 GM/30 ML UDC (FOR ORAL USE ONLY) PO SCH ×2 (06:07→14:38)
[2017-10-12] MEDS: INSULIN (LEVEMIR) 100 UNITS/ML UNITS SQ SCH (06:33)
[2017-10-12] MEDS ORDERED: INSULIN (NOVOLOG) ASPART 100 UNITS/ML 10ML VIAL ONE (06:45)
[2017-10-12] MEDS: LACTOBACILLUS ACIDOPHILUS 1 TABLET PO SCH (09:47)
[2017-10-12] MEDS: NADOLOL 20 MG TABLET (FP) PO SCH (09:47)
[2017-10-12] MEDS: MULTIVITAMINS (DAILY MVI) TABLET (FP) PO SCH (09:47)
[2017-10-12] MEDS: PANTOPRAZOLE 40 MG TABLET (FP) PO SCH (09:47)
[2017-10-12] MEDS: ASPIRIN 81 MG CHEWABLE TABLETS PO SCH (09:47)
[2017-10-12] MEDS: MIDODRINE HCL 5 MG TABLET PO SCH ×2 (09:48→14:38)
[2017-10-12] MEDS: HEPARIN NA (PORCINE) 5,000 UNITS/ML 1ML VIAL SQ SCH (09:48)
[2017-10-12] MEDS: RANOLAZINE E.R. 1,000 MG TABLET (FP) PO SCH (09:48)
[2017-10-12] MEDS: NYSTATIN POWDER 100,000 UNITS/GM - 15 GM TOPICAL POWDER TP SCH (09:49)
[2017-10-12] MEDS: COLLAGENASE CLOSTRIDIUM HIST. 30 GRAMS TUBE TP SCH (09:49)
--- NOTE | 2017-10-12 11:19 | PN ---
Progress Note, Physician Chief Complaint: Left diabetic foot ulcer History of Present Illness: NAD Seen by ID and nephrology IV abx Had debridement yesterday Wound cultures H/H stable Wound vac at [facility] Awaiting discharge - Current Medication List Current Medications: Active Medications Acetaminophen (Tylenol -) 650 mg PO Q4H PRN PRN Reason: FEVER Last Admin: 10/11/17 21:11 Dose: 650 mg Aspirin (Asa -) 81 mg PO DAILY [facility] Last Admin: 10/12/17 09:47 Dose: 81 mg Atorvastatin Calcium (Lipitor -) 10 mg PO HS [facility] Last Admin: 10/11/17 21:14 Dose: 10 mg Collagenase (Santyl -) 1 applic TP DAILY [facility] Last Admin: 10/12/17 09:49 Dose: 1 applic Heparin Sodium (Porcine) (Heparin -) 5,000 unit SQ BID [facility] Last Admin: 10/12/17 09:48 Dose: Not Given Piperacillin Sod/Tazobactam (Sod 3.375 gm/ Sodium Chloride) 100 mls @ 200 mls/ hr IVPB Q8H-IV [facility]; Protocol Last Admin: 10/12/17 09:47 Dose: 200 mls/hr Insulin Aspart (Novolog Vial Sliding Scale -) 1 vial SQ ACHS [facility]; Protocol Last Admin: 10/12/17 06:07 Dose: Not Given Insulin Detemir (Levemir Vial) 10 units SQ HS [facility] Last Admin: 10/11/17 21:13 Dose: 10 unit Insulin Detemir (Levemir Vial) 29 units SQ AM [facility] Last Admin: 10/12/17 06:33 Dose: 29 units Lactobacillus Acidophilus (Bacid -) 1 tab PO BID [facility] Last Admin: 10/12/17 09:47 Dose: 1 tab Lactulose (Cephulac (Oral Use)) 20 gm PO TID [facility] Last Admin: 10/12/17 06:07 Dose: Not Given Midodrine (Proamatine -) 5 mg PO TID-MID [facility] Last Admin: 10/12/17 09:48 Dose: 5 mg Multivitamins/Minerals/Vitamin C (Tab-A-Vit -) 1 tab PO DAILY [facility] Last Admin: 10/12/17 09:47 Dose: 1 tab Nadolol (Corgard -) 20 mg PO DAILY [facility] Last Admin: 10/12/17 09:47 Dose: 20 mg Nystatin (Nystop Powder -) 1 applic TP DAILY [facility] Last Admin: 10/12/17 09:49 Dose: 1 applic Ondansetron HCl (Zofran Injection) 4 mg IVPUSH Q6H PRN PRN Reason: NAUSEA AND/OR VOMITING Pantoprazole Sodium (Protonix -) 40 mg PO DAILY [facility] Last Admin: 10/12/17 09:47 Dose: 40 mg Ranolazine (Ranexa -) 1,000 mg PO BID [facility] Last Admin: 10/12/17 09:48 Dose: 1,000 mg - Objective Vital Signs: Vital Signs Temperature 98.1 F 10/12/17 09:55 Pulse Rate 61 10/12/17 09:55 Respiratory Rate 18 10/12/17 09:55 Blood Pressure 120/62 10/12/17 09:55 O2 Sat by Pulse Oximetry (%) 98 10/12/17 09:00 Constitutional: Yes: Well Nourished, No Distress, Calm Cardiovascular: Yes: Regular Rate and Rhythm Respiratory: Yes: Regular Gastrointestinal: Yes: Normal Bowel Sounds, Soft Musculoskeletal: Yes: WNL Neurological: Yes: Alert, Oriented Psychiatric: Yes: Alert, Oriented Labs: CBC, BMP 10/09/17 06:25 10/09/17 06:25 INR, PTT INR 1.14 (0.82-1.09) 10/07/17 06:00 Problem List - Problems (1) Diabetes type 2, uncontrolled Assessment/Plan: -BGM -Diabetic diet -A1c 5.6 -Insulin long and short acting, adjust by endocrinology -RD consult -Endocrinology on board Code(s): E11.65 - TYPE 2 DIABETES MELLITUS WITH HYPERGLYCEMIA Qualifiers: Diabetes mellitus complication status: with circulatory complication Diabetes mellitus complication detail: with other circulatory complications (2) CAD (coronary artery disease) Assessment/Plan: -aspirin 81 mg po daily -Lipitor 10 mg po HS -Seen by cardiology -Nadolol on hold for SBP < 100 mm Hg and HR<60 bpm -On Ranexa 550 mg po BID Code(s): I25.10 - ATHSCL HEART DISEASE OF [place] CORONARY ARTERY W/O ANG PCTRS (3) Anemia Assessment/Plan: -2/2 CKD chronic disease -received 1 unit PRBC this admission -normal transfusion parameters -Stool Guaiac positive -Iron profile normal -thyroid profile, B 12, folate okay -EGD-Grade b Esophageal varices and gastritis Code(s): D64.9 - ANEMIA, UNSPECIFIED (4) Ascites Assessment/Plan: -On U/S abdomen- moderate ascites -Chronic -GI consult Code(s): R18.8 - OTHER ASCITES Qualifiers: Ascites type: other type Qualified Code(s): R18.8 - Other ascites (5) Cellulitis of toe, left Assessment/Plan: -On IV Zosyn 3.375 Q8H -Podiatry consult -debridement done by Podiatry -dressing changed podiatry -wound vac at [facility] Code(s): L03.032 - CELLULITIS OF LEFT TOE (6) SHANEKA (acute kidney injury) Assessment/Plan: -Seen by Nephrology -Likely secondary to use of JOSI+NSAID's -hold BP meds -Avoid usage of nsaid's at this time -midodrine 5 mg po TID-MID -Labs in AM Code(s): N17.9 - ACUTE KIDNEY FAILURE, UNSPECIFIED Assessment/Plan see problem list -DVT prophylaxis
--- NOTE | 2017-10-12 11:28 | PN ---
Progress Note, Physician History of Present Illness: No acute events overnight. Clinically the same. No fever, chills, abdominal pain. - Current Medication List Current Medications: Active Medications Acetaminophen (Tylenol -) 650 mg PO Q4H PRN PRN Reason: FEVER Last Admin: 10/11/17 21:11 Dose: 650 mg Aspirin (Asa -) 81 mg PO DAILY [facility] Last Admin: 10/12/17 09:47 Dose: 81 mg Atorvastatin Calcium (Lipitor -) 10 mg PO HS [facility] Last Admin: 10/11/17 21:14 Dose: 10 mg Collagenase (Santyl -) 1 applic TP DAILY [facility] Last Admin: 10/12/17 09:49 Dose: 1 applic Heparin Sodium (Porcine) (Heparin -) 5,000 unit SQ BID [facility] Last Admin: 10/12/17 09:48 Dose: Not Given Piperacillin Sod/Tazobactam (Sod 3.375 gm/ Sodium Chloride) 100 mls @ 200 mls/ hr IVPB Q8H-IV [facility]; Protocol Last Admin: 10/12/17 09:47 Dose: 200 mls/hr Insulin Aspart (Novolog Vial Sliding Scale -) 1 vial SQ ACHS [facility]; Protocol Last Admin: 10/12/17 06:07 Dose: Not Given Insulin Detemir (Levemir Vial) 10 units SQ HS [facility] Last Admin: 10/11/17 21:13 Dose: 10 unit Insulin Detemir (Levemir Vial) 29 units SQ AM [facility] Last Admin: 10/12/17 06:33 Dose: 29 units Lactobacillus Acidophilus (Bacid -) 1 tab PO BID [facility] Last Admin: 10/12/17 09:47 Dose: 1 tab Lactulose (Cephulac (Oral Use)) 20 gm PO TID [facility] Last Admin: 10/12/17 06:07 Dose: Not Given Midodrine (Proamatine -) 5 mg PO TID-MID [facility] Last Admin: 10/12/17 09:48 Dose: 5 mg Multivitamins/Minerals/Vitamin C (Tab-A-Vit -) 1 tab PO DAILY [facility] Last Admin: 10/12/17 09:47 Dose: 1 tab Nadolol (Corgard -) 20 mg PO DAILY [facility] Last Admin: 10/12/17 09:47 Dose: 20 mg Nystatin (Nystop Powder -) 1 applic TP DAILY [facility] Last Admin: 10/12/17 09:49 Dose: 1 applic Ondansetron HCl (Zofran Injection) 4 mg IVPUSH Q6H PRN PRN Reason: NAUSEA AND/OR VOMITING Pantoprazole Sodium (Protonix -) 40 mg PO DAILY [facility] Last Admin: 10/12/17 09:47 Dose: 40 mg Ranolazine (Ranexa -) 1,000 mg PO BID [facility] Last Admin: 10/12/17 09:48 Dose: 1,000 mg - Objective Vital Signs: Vital Signs Temperature 98.1 F 10/12/17 09:55 Pulse Rate 61 10/12/17 09:55 Respiratory Rate 18 10/12/17 09:55 Blood Pressure 120/62 10/12/17 09:55 O2 Sat by Pulse Oximetry (%) 98 10/12/17 09:00 Constitutional: Yes: Well Nourished, No Distress, Calm Eyes: Yes: Conjunctiva Clear HENT: Yes: Atraumatic Cardiovascular: Yes: Regular Rate and Rhythm Respiratory: Yes: Regular Gastrointestinal: Yes: Normal Bowel Sounds, Soft, Ascites (.), Distention. No: Tenderness, Tenderness, Rebound, Vomiting Neurological: Yes: Alert, Oriented Labs: CBC, BMP 10/09/17 06:25 10/09/17 06:25 INR, PTT INR 1.14 (0.82-1.09) 10/07/17 06:00 Laboratory Last Values WBC 4.3 K/mm3 (4.0-10.0) 10/09/17 06:25 RBC 2.52 M/mm3 (4.00-5.60) L 10/09/17 06:25 Hgb 8.3 GM/dL (11.7-16.9) L 10/09/17 06:25 Hct 24.0 % (35.4-49) L 10/09/17 06:25 MCV 95.4 fl (80-96) 10/09/17 06:25 MCH 33.1 pg (25.7-33.7) 10/09/17 06:25 MCHC 34.7 g/dl (32.0-35.9) 10/09/17 06:25 RDW 16.4 % (11.9-15.9) H 10/09/17 06:25 Plt Count 89 K/MM3 (134-434) L 10/09/17 06:25 MPV 7.1 fl (7.5-11.1) L 10/09/17 06:25 Total Counted 100 10/03/17 07:30 Neutrophils % 74.5 % (42.8-82.8) 10/07/17 06:00 Neutrophils % (Manual) 80.0 % (42.8-82.8) 10/07/17 06:00 Band Neutrophils % 0.0 % 10/07/17 06:00 Lymphocytes % 14.1 % (8-40) 10/07/17 06:00 Lymphocytes % (Manual) 13.0 % (8-40) D 10/07/17 06:00 Monocytes % 9.6 % (3.8-10.2) 10/07/17 06:00 Monocytes % (Manual) 5 % (3.8-10.2) 10/07/17 06:00 Eosinophils % 1.3 % (0-4.5) 10/07/17 06:00 Eosinophils % (Manual) 0.0 % (0-4.5) D 10/07/17 06:00 Basophils % 0.5 % (0-2.0) 10/07/17 06:00 Basophils % (Manual) 2.0 % (0-2.0) D 10/07/17 06:00 Myelocytes % (Man) 0 % (0-2) D 10/07/17 06:00 Promyelocytes % (Man) 0 % (0-2) 10/07/17 06:00 Blast Cells % (Manual) 0 % (0-0) 10/07/17 06:00 Nucleated RBC % 0 % (0-0) 10/07/17 06:00 Metamyelocytes 0 % (0-2) 10/07/17 06:00 Hypochromia 0 10/03/17 07:30 Toxic Granulation 0 10/03/17 07:30 Dohle Bodies 0 10/03/17 07:30 Platelet Estimate Decreased 10/07/17 06:00 Platelet Comment Present 10/03/17 07:30 Polychromasia 0 10/03/17 07:30 Poikilocytosis 0 10/03/17 07:30 Basophilic Stippling 0 10/03/17 07:30 Anisocytosis 1+ 10/07/17 06:00 Microcytosis 0 10/03/17 07:30 Macrocytosis 0 10/03/17 07:30 Spherocytes 0 10/03/17 07:30 Sickle Cells 0 10/03/17 07:30 Target Cells 0 10/03/17 07:30 Tear Drop Cells 0 10/03/17 07:30 Ovalocytes 1+ 10/07/17 06:00 Stomatocytes 0 10/03/17 07:30 Helmet Cells 0 10/03/17 07:30 [place] Bodies 0 10/03/17 07:30 [place] Rings 0 10/03/17 07:30 [place] Cells 0 10/03/17 07:30 Acanthocytes (Spur) 0 10/03/17 07:30 Rouleaux 0 10/03/17 07:30 Fragmented RBCs 0 10/03/17 07:30 Schistocytes 1+ 10/07/17 06:00 PT with INR 12.90 SEC (9.7-13.0) 10/07/17 06:00 INR 1.14 (0.82-1.09) 10/07/17 06:00 PTT (Actin FS) 29.9 SECONDS (26.9-34.4) 09/30/17 14:01 VBG pH 7.31 (7.32-7.42) L 09/30/17 14:01 POC VBG pCO2 47.6 mmHg (38-52) 09/30/17 14:01 POC VBG pO2 13.7 mmHg (28-48) L* 09/30/17 14:01 Mixed VBG HCO3 23.1 meq/L (19-25) 09/30/17 14:01 Sodium 139 mmol/L (136-145) 10/09/17 06:25 Potassium 4.4 mmol/L (3.5-5.1) 10/09/17 06:25 Chloride 109 mmol/L (98-107) H 10/09/17 06:25 Carbon Dioxide 25 mmol/L (21-32) 10/09/17 06:25 Anion Gap 5 (8-16) L 10/09/17 06:25 BUN 12 mg/dL (7-18) 10/09/17 06:25 Creatinine 1.1 mg/dL (0.7-1.3) 10/09/17 06:25 Creat Clearance w eGFR > 60 (>60) 10/07/17 06:00 POC Glucometer 171 UNITS (80-120) 10/12/17 06:06 Random Glucose 94 mg/dL (74-106) 10/09/17 06:25 Hemoglobin A1c % 5.6 % (4.8-6.0) D 10/02/17 06:00 Lactic Acid 1.6 mmol/L (0.0-2.0) 10/01/17 10:35 Calcium 8.0 mg/dL (8.5-10.1) L 10/09/17 06:25 Phosphorus 2.7 mg/dL (2.5-4.9) 10/05/17 06:00 Magnesium 2.0 mg/dL (1.8-2.4) 10/05/17 06:00 Iron 44 ug/dL (38-169) 10/04/17 06:00 TIBC 170 ug/dL (250-450) L 10/04/17 06:00 Iron Saturation 26 % (15-55) 10/04/17 06:00 Ferritin 84.733 ng/ml (16.4-293.9) 10/04/17 06:00 Total Bilirubin 1.3 mg/dL (0.2-1.0) H 10/07/17 06:00 AST 29 U/L (15-37) 10/07/17 06:00 ALT 18 U/L (12-78) 10/07/17 06:00 Alkaline Phosphatase 142 U/L (45-117) H 10/07/17 06:00 Ammonia 57.26 umol/L (11-32) H 10/09/17 12:39 Troponin I 0.03 ng/ml (0.00-0.05) D 09/30/17 22:00 Total Protein 6.2 g/dl (6.4-8.2) L 10/07/17 06:00 Albumin 2.3 g/dl (3.4-5.0) L 10/07/17 06:00 Vitamin B12 1080 pg/ml (180-914) H D 10/04/17 06:00 Serum Folate 38 ng/ml (3.1-17.5) H 10/04/17 06:00 TSH 0.85 uIU/ml (0.358-3.74) D 10/04/17 06:00 Free T4 1.39 ng/dl (0.76-1.16) H 10/04/17 06:00 Urine Color Dkyellow 09/30/17 16:39 Urine Appearance Clear 09/30/17 16:39 Urine pH 5.0 (5.0-8.0) 09/30/17 16:39 Ur Specific [place] 1.016 (1.001-1.035) 09/30/17 16:39 Urine Protein Negative (NEGATIVE) 09/30/17 16:39 Urine Glucose (UA) Negative (NEGATIVE) 09/30/17 16:39 Urine Ketones Negative (NEGATIVE) 09/30/17 16:39 Urine Blood Negative (NEGATIVE) 09/30/17 16:39 Urine Nitrite Negative (NEGATIVE) 09/30/17 16:39 Urine Bilirubin Negative (<2.0 mg/dL) 09/30/17 16:39 Urine Urobilinogen 2.0 mg/dL (0.2-1.0) 09/30/17 16:39 Ur Leukocyte Esterase Negative (NEGATIVE) 09/30/17 16:39 U Random Total Protein 13 mg/dl (5-11.9) H 10/01/17 15:25 Ur Random Sodium 59 MMOL/L 10/01/17 15:25 Ur Random Urea Nitrogn 460 mg/dL 10/01/17 15:25 Urine Creatinine 49.9 mg/dL (20-370) 10/01/17 15:25 Stool Occult Blood Positive (NEGATIVE) 10/05/17 19:20 Blood Type A POSITIVE 10/01/17 14:35 Antibody Screen Negative 10/01/17 14:35 Crossmatch See Detail 10/01/17 14:35 Problem List - Problems (1) Hepatocellular carcinoma Code(s): C22.0 - LIVER CELL CARCINOMA (2) 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 Code(s): K75.81 - NONALCOHOLIC STEATOHEPATITIS (HERNANDEZ); K74.60 - UNSPECIFIED CIRRHOSIS OF LIVER (3) Ascites Code(s): R18.8 - OTHER ASCITES Assessment/Plan Continue current care. Discussed with the patient.
--- NOTE | 2017-10-12 12:32 | PN ---
Progress Note, Physician History of Present Illness: stable no issues for picc line - Current Medication List Current Medications: Active Medications Acetaminophen (Tylenol -) 650 mg PO Q4H PRN PRN Reason: FEVER Last Admin: 10/11/17 21:11 Dose: 650 mg Aspirin (Asa -) 81 mg PO DAILY [facility] Last Admin: 10/12/17 09:47 Dose: 81 mg Atorvastatin Calcium (Lipitor -) 10 mg PO HS [facility] Last Admin: 10/11/17 21:14 Dose: 10 mg Collagenase (Santyl -) 1 applic TP DAILY [facility] Last Admin: 10/12/17 09:49 Dose: 1 applic Heparin Sodium (Porcine) (Heparin -) 5,000 unit SQ BID [facility] Last Admin: 10/12/17 09:48 Dose: Not Given Piperacillin Sod/Tazobactam (Sod 3.375 gm/ Sodium Chloride) 100 mls @ 200 mls/ hr IVPB Q8H-IV [facility]; Protocol Last Admin: 10/12/17 09:47 Dose: 200 mls/hr Insulin Aspart (Novolog Vial Sliding Scale -) 1 vial SQ ACHS [facility]; Protocol Last Admin: 10/12/17 06:07 Dose: Not Given Insulin Detemir (Levemir Vial) 10 units SQ HS [facility] Last Admin: 10/11/17 21:13 Dose: 10 unit Insulin Detemir (Levemir Vial) 29 units SQ AM [facility] Last Admin: 10/12/17 06:33 Dose: 29 units Lactobacillus Acidophilus (Bacid -) 1 tab PO BID [facility] Last Admin: 10/12/17 09:47 Dose: 1 tab Lactulose (Cephulac (Oral Use)) 20 gm PO TID [facility] Last Admin: 10/12/17 06:07 Dose: Not Given Midodrine (Proamatine -) 5 mg PO TID-MID [facility] Last Admin: 10/12/17 09:48 Dose: 5 mg Multivitamins/Minerals/Vitamin C (Tab-A-Vit -) 1 tab PO DAILY [facility] Last Admin: 10/12/17 09:47 Dose: 1 tab Nadolol (Corgard -) 20 mg PO DAILY [facility] Last Admin: 10/12/17 09:47 Dose: 20 mg Nystatin (Nystop Powder -) 1 applic TP DAILY [facility] Last Admin: 10/12/17 09:49 Dose: 1 applic Ondansetron HCl (Zofran Injection) 4 mg IVPUSH Q6H PRN PRN Reason: NAUSEA AND/OR VOMITING Pantoprazole Sodium (Protonix -) 40 mg PO DAILY [facility] Last Admin: 10/12/17 09:47 Dose: 40 mg Ranolazine (Ranexa -) 1,000 mg PO BID [facility] Last Admin: 10/12/17 09:48 Dose: 1,000 mg - Objective Vital Signs: Vital Signs Temperature 98.1 F 10/12/17 09:55 Pulse Rate 61 10/12/17 09:55 Respiratory Rate 18 10/12/17 09:55 Blood Pressure 120/62 10/12/17 09:55 O2 Sat by Pulse Oximetry (%) 98 10/12/17 09:00 Constitutional: Yes: No Distress, Calm Cardiovascular: Yes: Regular Rate and Rhythm Respiratory: Yes: Regular, CTA Bilaterally Gastrointestinal: Yes: Normal Bowel Sounds, Soft Musculoskeletal: Yes: WNL Extremities: Yes: Other Wound/Incision: Yes: Dressing Dry and Intact Neurological: Yes: Alert, Oriented Psychiatric: Yes: Alert, Oriented Labs: CBC, BMP 10/09/17 06:25 10/09/17 06:25 INR, PTT INR 1.14 (0.82-1.09) 10/07/17 06:00 Assessment/Plan Problem List - Problems (1) Controlled diabetes mellitus with diabetic peripheral angiopathy without gangrene, without long-term current use of insulin Code(s): E11.51 - TYPE 2 DIABETES W DIABETIC PERIPHERAL ANGIOPATH W/O GANGRENE (2) Diabetic ulcer of left foot Code(s): E11.621 - TYPE 2 DIABETES MELLITUS WITH FOOT ULCER; L97.529 - NON- PRESSURE CHRONIC ULCER OTH PRT LEFT FOOT W UNSP SEVERITY Qualifiers: Diabetic foot ulcer location: other Diabetes mellitus type: type 1 Non- pressure ulcer stage: with other severity Qualified Code(s): E10.621 - Type 1 diabetes mellitus with foot ulcer; L97.528 - Non-pressure chronic ulcer of other part of left foot with other specified severity; L97.528 - Non-pressure chronic ulcer of other part of left foot with other specified severity; L97.528 - Non-pressure chronic ulcer of other part of left foot with other specified severity; L97.528 - Non-pressure chronic ulcer of other part of left foot with other specified severity (3) Abdominal distension Code(s): R14.0 - ABDOMINAL DISTENSION (GASEOUS) (4) Abscess of external ear Code(s): H60.00 - ABSCESS OF EXTERNAL EAR, UNSPECIFIED EAR Qualifiers: Laterality: left Qualified Code(s): H60.02 - Abscess of left external ear (5) Anemia Code(s): D64.9 - ANEMIA, UNSPECIFIED (6) Ascites due to alcoholic cirrhosis Code(s): K70.31 - ALCOHOLIC CIRRHOSIS OF LIVER WITH ASCITES (7) Atherosclerosis Code(s): I70.90 - UNSPECIFIED ATHEROSCLEROSIS SHANEKA LE gangrene/PVD/Ischemia/Osteomylitis Hx of Hepatic Ca Anemia/Thrombocytopenia plan patient stable no new issues continue abx as planned and complete the course wound care rest as per the team
[2017-10-12 14:08] VITALS: BP 134/62; PULSE 48; TEMP 98
--- NOTE | 2017-10-12 14:41 | PATH ---
Surgical Pathology Report Patient Name: JAYSON STRAUSS Med. Rec. #: [id number] /Age/Gender: 1960 (Age: 57) / M Account: [id number] Location: [facility] MED/SURG Taken: 10/07/2017 Received: 10/11/2017 Reported: 10/12/2017 Physicians: Pedrito Li M.D. Specimen(s) Received BX ANTRUM Clinical History Liver cirrhosis, esophageal varices Postoperative diagnosis: Grade B. esophageal and gastric varices, gastritis Final Diagnosis GASTRIC ANTRAL BIOPSY: GASTRIC MUCOSA WITH MILD GASTRITIS AND INCREASED VASCULAR DILATIONS IN THE LAMINA PROPRIA. IMMUNOSTAIN IS NEGATIVE FOR H. PYLORI ORGANISMS. Electronically Signed Lorne Perales M.D. Gross Description Received in formalin, labeled "antral biopsy" is a mcgill, irregular portion of soft tissue measuring 0.2 cm. in greatest dimension. The specimen is submitted in toto in one cassette. 10/11/2017 [facility]10/11/2017
== END 2017-10-12 16:30 | DRG 255 ==
LOC: JER 13:05 → JERBED 15:40 → J7W 19:35
PROVIDERS: ADMIT Family Medicine; ATTEND Family Medicine
PROC: 0Y6Y0Z3 Detachment at Left 5th Toe, Low, Open Approach (ICD-10-PCS; principal; 2017-09-30 17:00)
PROC: 30233N1 Transfusion of Nonautologous Red Blood Cells into Peripheral Vein, Percutaneous Approach (ICD-10-PCS; 2017-10-01)
PROC: 0QBR0ZX Excision of Left Toe Phalanx, Open Approach, Diagnostic (ICD-10-PCS; 2017-10-04)
PROC: 0JBR0ZZ Excision of Left Foot Subcutaneous Tissue and Fascia, Open Approach (ICD-10-PCS; 2017-10-04)
PROC: 3E1038Z Irrigation of Skin and Mucous Membranes using Irrigating Substance, Percutaneous Approach (ICD-10-PCS; 2017-10-04)
PROC: 0DD68ZX Extraction of Stomach, Via Natural or Artificial Opening Endoscopic, Diagnostic (ICD-10-PCS; 2017-10-07)
PROC: 02HV33Z Insertion of Infusion Device into Superior Vena Cava, Percutaneous Approach (ICD-10-PCS; 2017-10-12)
DX: E11.52 Type 2 diabetes mellitus with diabetic peripheral angiopathy with gangrene (principal); N17.0 Acute kidney failure with tubular necrosis; C22.0 Liver cell carcinoma; R18.8 Other ascites; I85.00 Esophageal varices without bleeding; L97.529 Non-pressure chronic ulcer of other part of left foot with unspecified severity; E11.65 Type 2 diabetes mellitus with hyperglycemia; K75.81 Nonalcoholic steatohepatitis (NASH); K72.90 Hepatic failure, unspecified without coma; L03.032 Cellulitis of left toe; I86.4 Gastric varices; E78.5 Hyperlipidemia, unspecified; D69.6 Thrombocytopenia, unspecified; I25.10 Atherosclerotic heart disease of native coronary artery without angina pectoris; E66.9 Obesity, unspecified; Z68.35 Body mass index [BMI] 35.0-35.9, adult; D64.9 Anemia, unspecified; I95.9 Hypotension, unspecified; K29.70 Gastritis, unspecified, without bleeding
CPT/HCPCS: 36415; 36430; 36569; 71045-TC-FY; 73630-TC-LT; 76700-TC; 77001-TC-FY; 80048; 80053; 81003; 82140; 82272; 82570; 82607; 82728; 82746; 82803; 82962; 83036; 83540; 83550; 83605; 83735; 84100; 84156; 84300; 84439; 84443; 84484; 84540; 85025; 85027; 85610; 85730; 86850; 86900; 86901; 86922; 87040; 87070; 87075; 87076; 87086; 87186; 87205; 88304-TC; 88305-TC; 88311-TC; 93005; 93010; 94760; 97116-GP; 97161-GP; 99284-25; C1751; G0463-25; J0131; J1644; J7030; P9038; P9047; P9058

== ENCOUNTER 2017-10-25 14:11 | Inpatient (IN) | payer MEDICARE, OTHER ==
--- NOTE | 2017-10-25 14:18 | PDOC ---
Rapid Medical Evaluation Time Seen by Provider: 10/25/17 14:13 Medical Evaluation: Allergies Allergy/AdvReac Type Severity Reaction Status Date / Time Iodinated Contrast- Oral and Allergy Verified 10/24/17 13:28 IV Dye [Iodinated Contrast Media - IV Dye] I have performed a brief in-person evaluation of this patient. The patient presents with a chief complaint of: sent by doctor for admission for surgery tomorrow. patient will be having surgery on his left foot wound tomorrow Pertinent physical exam findings: wound to left foot I have ordered the following: labs, EKG, UA, CXR The patient will proceed to the ED for further evaluation. Discharge Disposition - Diagnosis Wound infection - Referrals Referrals: Jg Flores MD [Primary Care Provider] - - Patient Instructions - Post Discharge Activity
[2017-10-25 14:41] LABS: BASO % 1.2 % (0-2.0); EOS % 4.6 % (0-4.5); HEMATOCRIT 25.3 % (35.4-49); HEMOGLOBIN 8.8 GM/dL (11.7-16.9); LYMPH % 12.7 % (8-40); MCH 33.5 pg (25.7-33.7); MCHC 34.8 g/dl (32.0-35.9); MEAN CELL VOLUME 96.4 fl (80-96); MEAN PLT VOLUME 7.4 fl (7.5-11.1); MONO % 10.4 % (3.8-10.2); NEUT % 71.1 % (42.8-82.8); PLATELET COUNT 100 K/MM3 (134-434); RBC 2.62 M/mm3 (4.00-5.60); WHITE BLOOD COUNT 3.9 K/mm3 (4.0-10.0)
[2017-10-25 15:01] LABS: INR 1.08 (0.82-1.09); PROTHROMBIN TIME (PATIENT) 12.2 SEC (9.7-13.0)
[2017-10-25 15:04] LABS: ACTIVATED PTT 34.5 SECONDS (26.9-34.4)
[2017-10-25 15:11] LABS: ALBUMIN 2.4 g/dl (3.4-5.0); ANION GAP 8 (8-16); BILIRUBIN,TOTAL 1.2 mg/dL (0.2-1.0); BLOOD UREA NITROGEN 15 mg/dL (7-18); CALCIUM 8.3 mg/dL (8.5-10.1); CHLORIDE 105 mmol/L (98-107); CO2 23 mmol/L (21-32); CREATININE 1.3 mg/dL (0.7-1.3); GLUCOSE,RANDOM 297 mg/dL (74-106); POTASSIUM 4.2 mmol/L (3.5-5.1); SGOT/AST 39 U/L (15-37); SGPT/ALT 23 U/L (12-78); SODIUM 136 mmol/L (136-145); TOT PROT 7.5 g/dl (6.4-8.2)
[2017-10-25 15:17] LABS: ALK PHOS 155 U/L (45-117)
--- NOTE | 2017-10-25 17:07 | PDOC ---
History of Present Illness <Promise Cameron - Last Filed: 10/25/17 17:22> - General History Source: Patient Exam Limitations: No Limitations - History of Present Illness Initial Comments: 10/25/17 18:15 The patient is a 57 year old male, with a significant past medical history of anemia, HCC, hepatic encephalopathy (patient is on a liver transplant list), hypertension, hyperlipidemia, CVA, IDDM, gastritis, and esophageal varices, who presents to the emergency department with, wound on the left foot. The patient is currently under the wound care supervision of Dr. Neil Gasca to whom sent him over for admission and debridement. He reports purulent discharge from the wound. He denies any recent fevers, chills, headache or dizziness. He denies any recent nausea, vomit, diarrhea or constipation. He denies any recent chest pain or shortness of breath. He denies any recent dysuria, frequency, urgency or hematuria. Allergies: Iodinated Contrast Media (Oral and IV) Past Surgical History: Cholecystectomy. Cardiac stent placement. Left 4th digit amputation. Social History: Non smoker. No ETOH or recreational drug use. PCP: Dr. Roxanne Duran ID: Dr. Mckeon Leaf Conditioner: Dr. Scanlon Vascular: Dr. Neil Gasca <Crispin Reveles - Last Filed: 10/25/17 19:07> - General Chief Complaint: Wound Stated Complaint: Wound Time Seen by Provider: 10/25/17 14:13 Past History - Past Medical History Anemia: Yes Asthma: No Cancer: Yes (LIVER) Cardiac Disorders: Yes CVA: Yes COPD: No CHF: No DVT: No Dementia: No Diabetes: Yes GI Disorders: Yes (ESOPHAGEAL VARICES,GASTRITIS) Disorders: No HTN: Yes Hypercholesterolemia: Yes Liver Disease: (HEPATIC ENCEPHALOPATHY) Seizures: No Thyroid Disease: No - Surgical History Abdominal Surgery: No Appendectomy: No Cardiac Surgery: Yes (CARDIAC STENTS) Cholecystectomy: Yes Lung Surgery: No Neurologic Surgery: No Orthopedic Surgery: No - Suicide/Smoking/Psychosocial Hx Smoking Status: No Smoking History: Never smoked Have you smoked in the past 12 months: No Number of Cigarettes Smoked Daily: 0 Cigars Per Day: 0 Information on smoking cessation initiated: No Hx Alcohol Use: No Drug/Substance Use Hx: No Substance Use Type: None Hx Substance Use Treatment: No <Promise Cameron - Last Filed: 10/25/17 17:22> <Jaz Revelesphilip - Last Filed: 10/25/17 19:07> - Past Medical History Allergies/Adverse Reactions: Allergies Allergy/AdvReac Type Severity Reaction Status Date / Time Iodinated Contrast- Oral and Allergy Verified 10/25/17 14:14 IV Dye [Iodinated Contrast Media - IV Dye] Home Medications: Ambulatory Orders Multivitamins [Multivit ([facility] Formulary)] 1 tab PO DAILY 07/15/16 Aspirin [ASA -] 81 mg PO DAILY tab.chew 10/30/16 Atorvastatin Ca [Lipitor] 10 mg PO HS #30 tab 12/11/16 Pantoprazole Sodium [Protonix] 40 mg PO DAILY #30 tab 12/11/16 Collagenase Clostridium Hist. [Santyl] 1 applic TP DAILY #90 oint...g. 05/02/17 Ranolazine [Ranexa] 1,000 mg PO Q12H 09/30/17 Acetaminophen [Tylenol .Regular Strength -] 650 mg PO Q4H PRN tablet 10/11/17 Heparin - 5,000 unit SQ BID vial 10/11/17 Insulin (Levemir) [Levemir Vial] 10 units SQ HS units 10/11/17 Insulin (Levemir) [Levemir Vial] 29 units SQ AM units 10/11/17 Insulin Sliding Scale [Novolog Vial Sliding Scale -] 1 vial SQ ACHS units 10/11 Lactobacillus Acidophilus [Bacid -] 1 tab PO BID tab 10/11/17 Lactulose (Oral Use) [Cephulac -] 20 gm PO QID udc 10/11/17 Midodrine HCl [Proamatine -] 5 mg PO TID-MID tablet 10/11/17 Nadolol 20 mg PO DAILY #30 tab 10/11/17 Nystatin Powder [Nystop Powder -] 1 applic TP DAILY applic 10/11/17 Piperacillin/Tazob 3.375 gm [Zosyn -] 3.375 gm IVPB Q8H-IV vial 10/11/17 Review of Systems - Review of Systems Able to Perform ROS?: Yes Comments:: 10/25/17 18:16 CONSTITUTIONAL: Absent: fever, no chills, no fatigue EYES: Absent: visual changes ENT: Absent: ear pain, no sore throat CARDIOVASCULAR: Absent: chest pain, no palpitations RESPIRATORY: Absent: cough, no SOB GI: Absent: abdominal pain, no nausea, no vomiting, no constipation, no diarrhea GENITOURINARY: Absent: dysuria, no frequency, no hematuria MUSKULOSKELETAL: Absent: back pain, no arthralgia, no myalgia EXTREMITIES: Present: Nonhealing wound on the left foot. SKIN: Absent: rash NEURO: Absent: headache All Other Systems: Reviewed and Negative <Cripsin Reveles - Last Filed: 10/25/17 19:07> *Physical Exam - Vital Signs Last Vital Signs Temp Pulse Resp BP Pulse Ox 97.9 F 52 L 18 129/68 100 10/25/17 14:15 10/25/17 14:15 10/25/17 14:15 10/25/17 14:15 10/25/17 14:15 <Promise Cameron - Last Filed: 10/25/17 17:22> - Vital Signs Last Vital Signs Temp Pulse Resp BP Pulse Ox 97.9 F 52 L 18 129/68 100 10/25/17 14:15 10/25/17 14:15 10/25/17 14:15 10/25/17 14:15 10/25/17 14:15 - Physical Exam Comments: 10/25/17 18:17 GENERAL: Well developed, well nourished. Awake and alert. No acute distress. HEENT: Normocephalic, atraumatic. PERRLA, EOMI. No conjunctival pallor. Sclera are non- icteric. Moist mucous membranes. Oropharynx is clear. NECK: Supple. Full ROM. No JVD. Carotid pulses 2+ and symmetric, without bruits. No thyromegaly. No lymphadenopathy. +CARDIOVASCULAR: Murmur. Regular rate and rhythm. No rubs, or gallops. Distal pulses are 2+ and symmetric. PULMONARY: No evidence of respiratory distress. Lungs clear to auscultation bilaterally. No wheezing, rales or rhonchi. ABDOMINAL: Soft. Non-tender. Non-distended. No rebound or guarding. No organomegaly. Normoactive bowel sounds. MUSCULOSKELETAL Normal range of motion at all joints. No bony deformities or tenderness. No CVA tenderness. +EXTREMITIES: Non healing wound on the left lower extremity surface where the 5th metatarsal used to be located. 3cm deep open ulceration with foul smelling purulent discharge. No cyanosis. No clubbing. No edema. No calf tenderness. SKIN: Warm and dry. Normal capillary refill. No jaundice. NEUROLOGICAL: Alert, awake, appropriate. Cranial nerves 2-12 intact. No deficits to light touch and temperature in face, upper extremities and lower extremities. No motor deficits in the in face, upper extremities and lower extremities. Normoreflexic in the upper and lower extremities. Normal speech. Toes are down- going bilaterally. PSYCHIATRIC: Cooperative. Good eye contact. Appropriate mood and affect. <Crispin Reveles - Last Filed: 10/25/17 19:07> ED Treatment Course - LABORATORY CBC & Chemistry Diagram: 10/25/17 14:30 10/25/17 14:30 - ADDITIONAL ORDERS Additional order review: Laboratory Results 10/25/17 10/25/17 10/25/17 14:30 14:30 14:30 PT with INR 12.20 INR 1.08 PTT (Actin FS) 34.5 H Sodium 136 Potassium 4.2 Chloride 105 Carbon Dioxide 23 Anion Gap 8 BUN 15 D Creatinine 1.3 Creat Clearance w eGFR 56.50 Random Glucose 297 H D Calcium 8.3 L Total Bilirubin 1.2 H AST 39 H D ALT 23 D Alkaline Phosphatase 155 H Creatine Kinase 64 Troponin I 0.05 D Total Protein 7.5 D Albumin 2.4 L Blood Type A POSITIVE Antibody Screen Negative 10/25/17 14:30 RBC 2.62 L MCV 96.4 H MCHC 34.8 RDW 18.0 H MPV 7.4 L Neutrophils % 71.1 Lymphocytes % 12.7 Monocytes % 10.4 H Eosinophils % 4.6 H D Basophils % 1.2 <Promise Cameron - Last Filed: 10/25/17 17:22> - LABORATORY CBC & Chemistry Diagram: 10/25/17 14:30 10/25/17 14:30 - ADDITIONAL ORDERS Additional order review: Laboratory Results 10/25/17 10/25/17 10/25/17 14:30 14:30 14:30 PT with INR 12.20 INR 1.08 PTT (Actin FS) 34.5 H Sodium 136 Potassium 4.2 Chloride 105 Carbon Dioxide 23 Anion Gap 8 BUN 15 D Creatinine 1.3 Creat Clearance w eGFR 56.50 Random Glucose 297 H D Calcium 8.3 L Total Bilirubin 1.2 H AST 39 H D ALT 23 D Alkaline Phosphatase 155 H Creatine Kinase 64 Troponin I 0.05 D Total Protein 7.5 D Albumin 2.4 L Blood Type A POSITIVE Antibody Screen Negative 10/25/17 14:30 RBC 2.62 L MCV 96.4 H MCHC 34.8 RDW 18.0 H MPV 7.4 L Neutrophils % 71.1 Lymphocytes % 12.7 Monocytes % 10.4 H Eosinophils % 4.6 H D Basophils % 1.2 <Crispin Reveles - Last Filed: 10/25/17 19:07> *DC/Admit/Observation/Transfer - Discharge Dispostion Decision to Admit order: Yes <Promise Cameron - Last Filed: 10/25/17 17:22> - Attestations Scribe Attestion: 10/25/17 18:19 Documentation prepared by Crispin Reveles, acting as medical office manager for Promise Cameron MD. <Crispin Reveles - Last Filed: 10/25/17 19:07> Diagnosis at time of Disposition: Wound infection CKD (chronic kidney disease) Qualifiers: Chronic kidney disease stage: unspecified stage Qualified Code(s): N18.9 - Chronic kidney disease, unspecified Type 2 diabetes mellitus with diabetic neuropathy, unspecified Qualifiers: Diabetes mellitus electrostatic paint operator insulin use: with electrostatic paint operator use Qualified Code(s): E11.40 - Type 2 diabetes mellitus with diabetic neuropathy, unspecified
[2017-10-25] MEDS ORDERED: VANCOMYCIN 1,000 MG in DEXTROSE 5%-WATER - 250 ML IVPB ONE (17:20)
[2017-10-25] MEDS ORDERED: PIPERACILLIN/TAZOB 3.375 GM 3.375 GM in DEXTROSE 5%-WATER - 50 ML IVPB ONE (17:21)
[2017-10-25] MEDS ORDERED: PIPERACILLIN/TAZOB 3.375 GM 3.375 GM/50 ML BAG IVPB ONE (17:41)
[2017-10-25] MEDS ORDERED: VANCOMYCIN 1 GRAM (PRE-DOCKED) 1,000 MG/250 ML BAG IVPB ONE (17:41)
--- NOTE | 2017-10-25 17:59 | HP ---
Admitting History and Physical - Admission Chief Complaint: sent from wound care History of Present Illness: This is a 57 year old male with phx of anemia, HCC, hepatic encephalopathy ( patient is on a liver transplant list), hypertension, hyperlipidemia, CVA, IDDM , gastritis, esophageal varices, L foot wound currently on IV abx via PICC line , presenting from wound care visit today. Wound care was displeased with the healing of the wound, would like debridement tomorrow. Denies sob, fever, chills, sob, cp. History Source: Patient, Medical Record Limitations to Obtaining History: No Limitations - Past Medical History FUND RAISER: Yes: Peripheral Neuropathy Cardiovascular: Yes: CAD, HTN, Hyperlipdemia Gastrointestinal: Yes: Ascites, Esophageal Varices, Gastritis, GI Bleed, Hemorrhoids, Other Hepatobiliary: Yes: Cirrhosis (h/o esophageal varices s/p banding, related to HERNANDEZ), Cholelithiasis (s/p lap choly), Other (PORTAL VEIN PARTIAL THROMBOSIS, HCC treated with transhepatic heat ablations at [facility]) Renal/: Yes: Renal Inusuff Heme/Onc: Yes: Anemia, Thrombocytopenia Endocrine: Yes: Diabetes Mellitus - Past Surgical History Past Surgical History: Yes: Amputation (left toe #4, right toes #2,3), Cholecystectomy, Colonoscopy, Hernia Repair, Upper Endoscopy - Smoking History Smoking history: Never smoked Have you smoked in the past 12 months: No Aproximately how many cigarettes per day: 0 - Alcohol/Substance Use Hx Alcohol Use: No History of Substance Use: reports: None - Social History ADL: Independent 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 [Santyl] 1 applic TP DAILY #90 oint...g. 05/02/17 Ranolazine [Ranexa] 1,000 mg PO Q12H 09/30/17 Acetaminophen [Tylenol .Regular Strength -] 650 mg PO Q4H PRN tablet 10/11/17 Heparin - 5,000 unit SQ BID vial 10/11/17 Insulin (Levemir) [Levemir Vial] 10 units SQ HS units 10/11/17 Insulin (Levemir) [Levemir Vial] 29 units SQ AM units 10/11/17 Insulin Sliding Scale [Novolog Vial Sliding Scale -] 1 vial SQ ACHS units 10/11 Lactobacillus Acidophilus [Bacid -] 1 tab PO BID tab 10/11/17 Lactulose (Oral Use) [Cephulac -] 20 gm PO QID udc 10/11/17 Midodrine HCl [Proamatine -] 5 mg PO TID-MID tablet 10/11/17 Nadolol 20 mg PO DAILY #30 tab 10/11/17 Nystatin Powder [Nystop Powder -] 1 applic TP DAILY applic 10/11/17 Piperacillin/Tazob 3.375 gm [Zosyn -] 3.375 gm IVPB Q8H-IV vial 10/11/17 Family Disease History - Family Disease History Family Disease History: Diabetes: Brother (alcoholic cirrhosis), Sister, CA: Mother (breast Ca), Other: Father ( from alcohol related complications) Review of Systems - Review of Systems Constitutional: reports: No Symptoms Eyes: reports: No Symptoms HENT: reports: No Symptoms Neck: reports: No Symptoms Cardiovascular: reports: No Symptoms Respiratory: reports: No Symptoms Gastrointestinal: reports: No Symptoms Genitourinary: reports: No Symptoms Breasts: reports: No Symptoms Reported Musculoskeletal: reports: No Symptoms Integumentary: reports: Other (L foot draining wound) Neurological: reports: No Symptoms Endocrine: reports: No Symptoms Hematology/Lymphatic: reports: No Symptoms Psychiatric: reports: No Symptoms Physical Examination Vital Signs: Vital Signs Temperature 97.9 F 10/25/17 14:15 Pulse Rate 52 L 10/25/17 14:15 Respiratory Rate 18 10/25/17 14:15 Blood Pressure 129/68 10/25/17 14:15 O2 Sat by Pulse Oximetry (%) 100 10/25/17 14:15 Constitutional: Yes: No Distress Eyes: Yes: Conjunctiva Clear HENT: Yes: Atraumatic Neck: Yes: Supple Cardiovascular: Yes: Regular Rate and Rhythm, S1, S2 Respiratory: Yes: Regular, Rhonchi Gastrointestinal: Yes: Normal Bowel Sounds, Soft Renal/: Yes: WNL Musculoskeletal: Yes: WNL Extremities: Yes: Other (L foot wound, lateral draining push, slough) Edema: No Peripheral Pulses WNL: Yes Integumentary: Yes: Other (RUE picc line in place) Wound/Incision: Yes: Open to air, Draining Neurological: Yes: Alert, Oriented, Cran Nerves II-XII Intact Labs: CBC, BMP 10/25/17 14:30 10/25/17 14:30 Imaging - Results Chest X-ray: Report Reviewed, Image Reviewed Problem List - Problems (1) CKD (chronic kidney disease) Code(s): N18.9 - CHRONIC KIDNEY DISEASE, UNSPECIFIED Qualifiers: Chronic kidney disease stage: unspecified stage Qualified Code(s): N18.9 - Chronic kidney disease, unspecified (2) Cellulitis of toe, left Code(s): L03.032 - CELLULITIS OF LEFT TOE Assessment/Plan Assessment: 57 year old male with pustulant drainage from L lateral wound Plan: 1. L foot diabetic foot ulcer/wound s/p 5th toe amputation 09/30 - For debridement tomorrow, npo after midnight - Continue zosyn - ID consulted - Vascular consulted 2. DM II - Levemir, ISS 3. CAD - Continue aspirin, Lipitor, Ranexa 4. Cirrhosis with portal hypertensive gastropathy, ascites, hepatic encephalopathy - Continue lactulose, Corgard 7. Hypotension - Stable now - Continue Midodrine 8. Thrombocytopenia - Platelets stable 9. Hyperlipidemia - Continue Lipitor 10. DVT - SCDs Visit type - Emergency Visit Emergency Visit: Yes Care time: The patient presented to the Emergency Department on the above date and was hospitalized for further evaluation of their emergent condition. - New Patient This patient is new to me today: Yes Date on this admission: 10/25/17 - Critical Care Critical Care patient: No Hospitalist Screening - Colonoscopy Questionnaire Colonoscopy Questionnaire: Colonoscopy Questionnaire - Patient: 50 - 75 years old and never had a screening colonoscopy: Yes History of colon or rectal polyps, or CA: Unknown History of IBD, Crohn's disease or UC: Unknown History of abdominal radiation therapy as a child: Unknown - Relative: 1 with colon or rectal CA, or polyps at age 60 or younger: Unknown Colon or rectal CA diagnosed at age 45 or younger: Unknown Multiple relatives with colon or rectal CA: Unknown - Outcome: Screening Result: Positive Screen
[2017-10-25] MEDS ORDERED: oxyCODONE HCL 5 MG TABLET PO PRN (18:02)
[2017-10-25] MEDS ORDERED: INSULIN SLIDING SCALE (NOVOLOG) 1 VIAL SQ SCH (22:00)
[2017-10-25 22:26] VITALS: BMI 35.6
[2017-10-25] MEDS ORDERED: RANOLAZINE E.R. 500 MG TABLET (FP) ONE (23:03)
[2017-10-25] MEDS: INSULIN (LEVEMIR) 100 UNITS/ML UNITS SQ SCH (23:07)
[2017-10-25] MEDS: RANOLAZINE E.R. 1,000 MG TABLET (FP) PO SCH (23:07)
[2017-10-25] MEDS: LACTULOSE 20 GM/30 ML UDC (FOR ORAL USE ONLY) PO SCH (23:07)
[2017-10-25] MEDS: ATORVASTATIN CA 10 MG TABLET (FP) PO SCH (23:07)
[2017-10-25] MEDS: INSULIN SLIDING SCALE (NOVOLOG) 1 VIAL SQ SCH (23:08)
[2017-10-25 23:29] LABS: URINE APPEARANCE CLEAR; URINE BILIRUBIN NEGATIVE (<2.0 mg/dL); URINE COLOR YELLOW; URINE GLUCOSE (UA) 3+ (NEGATIVE); URINE KETONE NEGATIVE (NEGATIVE); URINE LEUK ESTERASE NEGATIVE (NEGATIVE); URINE NITRITE NEGATIVE (NEGATIVE); URINE UROBILINOGEN NEGATIVE mg/dL (0.2-1.0)
[2017-10-25 23:39] LABS: URINE PROTEIN 2+ (NEGATIVE)
[2017-10-25 23:40] LABS: EPI CELLS RARE /HPF (FEW); URINE BACTERIA RARE /hpf (NONE SEEN); URINE MUCUS RARE
[2017-10-26] MEDS ORDERED: PIPERACILLIN/TAZOBACTAM 3.375 GM VIAL IVPB ONE ×3 (01:04→16:53)
[2017-10-26] MEDS ORDERED: DEXTROSE 5%-WATER - 50 ML IVPB ONE ×3 (01:04→16:53)
[2017-10-26] MEDS: PIPERACILLIN/TAZOB 3.375 GM 3.375 GM in DEXTROSE 5%-WATER - 50 ML IVPB SCH ×3 (01:42→16:54)
[2017-10-26] MEDS ORDERED: [UNRECOGNIZED DRUG - OTHER] IVPB SCH (02:00)
[2017-10-26] MEDS: INSULIN SLIDING SCALE (NOVOLOG) 1 VIAL SQ SCH ×4 (06:39→23:09)
[2017-10-26] MEDS: INSULIN (LEVEMIR) 100 UNITS/ML UNITS SQ SCH ×2 (06:39→23:08)
[2017-10-26 07:51] LABS: BASO % 0.7 % (0-2.0); EOS % 4.5 % (0-4.5); HEMATOCRIT 23.7 % (35.4-49); HEMOGLOBIN 8.4 GM/dL (11.7-16.9); LYMPH % 15.1 % (8-40); MCH 33.6 pg (25.7-33.7); MCHC 35.3 g/dl (32.0-35.9); MEAN CELL VOLUME 95.1 fl (80-96); MEAN PLT VOLUME 7.7 fl (7.5-11.1); MONO % 12.4 % (3.8-10.2); NEUT % 67.3 % (42.8-82.8); PLATELET COUNT 93 K/MM3 (134-434); RBC 2.49 M/mm3 (4.00-5.60); RDW 17.4 % (11.9-15.9); WHITE BLOOD COUNT 3.8 K/mm3 (4.0-10.0)
[2017-10-26 08:00] LABS: BLOOD UREA NITROGEN 13 mg/dL (7-18); CHLORIDE 106 mmol/L (98-107); GLUCOSE,RANDOM 108 mg/dL (74-106); POTASSIUM 4.1 mmol/L (3.5-5.1); SODIUM 140 mmol/L (136-145)
[2017-10-26 08:03] LABS: ANION GAP 9 (8-16); CALCIUM 8.2 mg/dL (8.5-10.1); CO2 25 mmol/L (21-32); CREATININE 1.2 mg/dL (0.7-1.3)
[2017-10-26] MEDS ORDERED: RANOLAZINE E.R. 500 MG TABLET (FP) ONE ×2 (08:41→21:20)
[2017-10-26] MEDS ORDERED: PT OWN MED DRAWER 7, Y5N ONE (08:41)
--- NOTE | 2017-10-26 09:30 | PN ---
Progress Note (short form) - Note Progress Note: VASCULAR SURGERY - Neil Gasca Called to eval 57 yo male well know to Vascular Surgery/Wound Care Service. Patient recently s/p 5th toe amp on left foot by SYDNEY Aguirre. Sent in from [facility] due to chronic DM infection to surgical site. Previous U/S shows 50% block in the TP trunk. AVSS. Afeb. PE General: alert. nad. LLE: 5th ray DM ulcer. Fibrogranular base distally. Evidence of wound contracture to distal portion of wound. Proximally, necrotic eschar (unstageable ). No foul odor. No purulence/drainage/erythema. +1 pedal edema. Warm. Hard to assess DP and PT. Problem List - Problems (1) Osteomyelitis Assessment/Plan: As per SYDNEY Aguirre --> he plans on taking patient to OR tomorrow for debridement and further resection of 5th ray shaft. Cont IV ABX Pain management prn Dr. Gasca will take patient to OR on 10/28/17 for LLE angio, possible plasty, possible stent Tight glycemic control Medical optimization/clearance for impending procedures Make NPO after midnight Above plan discussed with both and agree. Code(s): M86.9 - OSTEOMYELITIS, UNSPECIFIED (2) Peripheral vascular disease Code(s): I73.9 - PERIPHERAL VASCULAR DISEASE, UNSPECIFIED
--- NOTE | 2017-10-26 09:44 | EKG ---
Test Reason : Blood Pressure : / mmHG Vent. Rate : 045 BPM Atrial Rate : 045 BPM P-R Int : 166 ms QRS Dur : 118 ms QT Int : 514 ms P-R-T Axes : -01 -36 015 degrees QTc Int : 444 ms SINUS BRADYCARDIA LEFT AXIS DEVIATION LEFT VENTRICULAR HYPERTROPHY WITH QRS WIDENING CANNOT RULE OUT SEPTAL INFARCT , AGE UNDETERMINED ABNORMAL ECG WHEN COMPARED WITH ECG OF 01-OCT-2017 10:27, MINIMAL CRITERIA FOR SEPTAL INFARCT ARE NOW PRESENT Confirmed by KRISTINA VELIZ MD ([id number]) on 10/26/2017 9:44:10 AM Referred By: Confirmed By:KRISTINA VELIZ MD
[2017-10-26] MEDS: RANOLAZINE E.R. 1,000 MG TABLET (FP) PO SCH ×2 (09:58→23:09)
[2017-10-26] MEDS: LACTULOSE 20 GM/30 ML UDC (FOR ORAL USE ONLY) PO SCH ×6 (09:58→23:17)
[2017-10-26] MEDS: ASPIRIN 81 MG CHEWABLE TABLETS PO SCH (09:58)
[2017-10-26] MEDS: MIDODRINE HCL 5 MG TABLET PO SCH ×3 (09:58→18:01)
--- NOTE | 2017-10-26 10:14 | CONSULT ---
Consult - text type - Consultation Consultation Note: Podiatry Consultation: 57 year old IDDM M well known to me from wound healing center, sent in for admission for non-healing L foot ulcer. Patient is s/p L fifth digit amputation , partial fifth ray resection for severe DFI. Currently on IV abx via PICC line for treatment of osteomyelitis. Presented to wound healing yesterday with necrosis to the wound. Denies F/V/N/C/SOB/CP. Afebrile. PMHx: anemia, HCC, hepatic encephalopathy (patient is on a liver transplant list ), hypertension, hyperlipidemia, CVA, IDDM, gastritis, esophageal varices Meds: noted ALL: dye GEORGE: L foot: diabetic ulcer fifth ray underlying fibrogranular base distally, gangrenous necrosis with eschar proximally, probes to bone proximally with exposed fifth metatarsal stump, no purulent drainage, no fluctuance, moderate periwound erythema, no streaking cellulitis, no soft tissue crepitus. Imp: 57 year old IDDM, PVD M with L foot DFU, osteomyelitis 1. IV abx 2. Plan for OR debridement/lavage tomorrow morning. NPO at midnight. Discussed case with patient and his . 3. Discussed case with Vascular Sx. Will touch base post-operatively. If there is not appropriate bleeding intraoperatively he will need angiogram. 4. Will obtain OR cultures. 5. Will follow. Angel Aguirre DPM
[2017-10-26] MEDS: NADOLOL 20 MG TABLET (FP) PO SCH (11:15)
[2017-10-26] MEDS: NYSTATIN POWDER 100,000 UNITS/GM - 15 GM TOPICAL POWDER TP SCH (11:15)
[2017-10-26] MEDS ORDERED: INSULIN (NOVOLOG) ASPART 100 UNITS/ML 10ML VIAL ONE ×3 (11:42→21:20)
--- NOTE | 2017-10-26 12:24 | PN ---
Progress Note, Physician Chief Complaint: Necrosis of Diabetic Foot Ulcer History of Present Illness: NAD Sitting at the edge of the bed at bedside Seen by Podiatry - Current Medication List Current Medications: Active Medications Aspirin (Asa -) 81 mg PO DAILY [facility] Last Admin: 10/26/17 09:58 Dose: 81 mg Atorvastatin Calcium (Lipitor -) 10 mg PO HS [facility] Last Admin: 10/25/17 23:07 Dose: 10 mg Insulin Aspart (Novolog Vial Sliding Scale -) 1 vial SQ ACHS [facility]; Protocol Last Admin: 10/26/17 11:41 Dose: 4 units Insulin Detemir (Levemir Vial) 10 units SQ HS [facility] Last Admin: 10/25/17 23:07 Dose: 10 units Insulin Detemir (Levemir Vial) 29 units SQ ACBK [facility] Last Admin: 10/26/17 06:39 Dose: Not Given Lactulose (Cephulac (Oral Use)) 20 gm PO QID [facility] Last Admin: 10/26/17 10:08 Dose: Not Given Midodrine (Proamatine -) 5 mg PO TID-MID [facility] Last Admin: 10/26/17 09:58 Dose: 5 mg Nadolol (Corgard -) 20 mg PO DAILY [facility] Last Admin: 10/26/17 11:15 Dose: 20 mg Non-Formulary Medication (Piperacillin/Tazob 3.375 Gm [Zosyn -]) 3.375 gm IVPB Q8H-IV [facility] Nystatin (Nystop Powder -) 1 applic TP DAILY [facility] Last Admin: 10/26/17 11:15 Dose: 1 applic Oxycodone HCl (Roxicodone -) 5 mg PO Q6H PRN PRN Reason: PAIN LEVEL 4 - 6 Ranolazine (Ranexa -) 1,000 mg PO BID [facility] Last Admin: 10/26/17 09:58 Dose: 1,000 mg - Objective Vital Signs: Vital Signs Temperature 98.2 F 10/26/17 06:25 Pulse Rate 63 10/26/17 06:25 Respiratory Rate 20 10/26/17 06:25 Blood Pressure 116/60 10/26/17 06:25 O2 Sat by Pulse Oximetry (%) 100 10/25/17 22:30 Constitutional: Yes: Well Nourished, No Distress, Calm Cardiovascular: Yes: Regular Rate and Rhythm Respiratory: Yes: Regular Gastrointestinal: Yes: Normal Bowel Sounds, Soft Musculoskeletal: Yes: WNL Edema: No Wound/Incision: Yes: Dressing Dry and Intact Neurological: Yes: Alert, Oriented Psychiatric: Yes: Alert, Oriented Labs: CBC, BMP 10/26/17 06:00 10/26/17 06:00 INR, PTT INR 1.08 (0.82-1.09) 10/25/17 14:30 Problem List - Problems (1) CKD (chronic kidney disease) Assessment/Plan: -Cr at baseline -Monitor trend Code(s): N18.9 - CHRONIC KIDNEY DISEASE, UNSPECIFIED Qualifiers: Chronic kidney disease stage: unspecified stage Qualified Code(s): N18.9 - Chronic kidney disease, unspecified (2) Type 2 diabetes mellitus with diabetic neuropathy, unspecified Assessment/Plan: -BGM ACHS -Insulin coverage -Levemir BID -Diabetic diet -Last A1c at 5.6 Code(s): E11.40 - TYPE 2 DIABETES MELLITUS WITH DIABETIC NEUROPATHY, UNSP Qualifiers: Diabetes mellitus mcfp insulin use: with mcfp use Qualified Code( s): E11.40 - Type 2 diabetes mellitus with diabetic neuropathy, unspecified; Z79.4 - care home (current) use of insulin (3) Anemia Assessment/Plan: -Anemia of chronic disease and Bleeding esophagea varices -EGD last admission by Dr Nash, varices stabilized -On Nadolol for esophageal varices -stable -monitor trend Code(s): D64.9 - ANEMIA, UNSPECIFIED (4) Cellulitis of toe, left Assessment/Plan: -Seen by podiatry -ID consult appreciated -IV Zosyn Q8H -Going for Debridement in AM by Dr Aguirre -NPO past midnight -Going for angiogram on Tuesday by Dr Gasca -Oxycodone 5 mg Q6H PRN for pain Code(s): L03.032 - CELLULITIS OF LEFT TOE (5) Hepatic encephalopathy Assessment/Plan: -On Lactulose -Please titrate lactulose until 4 BM/day are achieved Code(s): K72.90 - HEPATIC FAILURE, UNSPECIFIED WITHOUT COMA (6) CAD (coronary artery disease) Assessment/Plan: -Aspirin 81 mg po daily -Atorvastatin 10 mg po HS Code(s): I25.10 - ATHSCL HEART DISEASE OF [place] CORONARY ARTERY W/O ANG PCTRS Assessment/Plan see problem list DVT prophylaxis
--- NOTE | 2017-10-26 15:24 | CON.ID ---
Consult Consult Specialty:: infectios diseases Reason for Consultation:: wound infection with necrosis and wound break down - History of Present Illness Chief Complaint: no healing wound History of Present Illness: 57 year old male with phx of anemia, HCC, hepatic encephalopathy , hypertension , hyperlipidemia, CVA, IDDM, gastritis, esophageal varices, L foot wound currently on IV abx via PICC line, presenting from wound care visit today. patient wound has broken down with necrosis of the part of the wound after looking at the wound patient needs to go to the operating room. and get reoperated patient being taken to the operating room today patient otherwise doing well - History Source History Provided By: Patient, Family Member Limitations to Obtaining History: No Limitations - Past Medical History INTERPRETER DEAF: Yes: Peripheral Neuropathy Cardio/Vascular: Yes: CAD, HTN, Hyperlipdemia Gastrointestinal: Yes: Ascites, Esophageal Varices, Gastritis, GI Bleed, Hemorrhoids, Other Hepatobiliary: Yes: Cirrhosis (h/o esophageal varices s/p banding, related to HERNANDEZ), Cholelithiasis (s/p lap choly), Other (PORTAL VEIN PARTIAL THROMBOSIS, HCC treated with transhepatic heat ablations at [facility]) Renal/: Yes: Renal Inusuff Endocrine: Yes: Diabetes Mellitus - Past Surgical History Past Surgical History: Yes: Amputation (left toe #4, right toes #2,3), Cholecystectomy, Colonoscopy, Hernia Repair, Upper Endoscopy - Alcohol/Substance Use Hx Alcohol Use: No History of Substance Use: reports: None - Smoking History Smoking history: Never smoked Have you smoked in the past 12 months: No Aproximately how many cigarettes per day: 0 - Social History Usual Living Arrangement: With Spouse ADL: Independent 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 [employer] History of Recent Travel: No Home Medications - Allergies Allergies/Adverse Reactions: Allergies Allergy/AdvReac Type Severity Reaction Status Date / Time Iodinated Contrast- Oral and Allergy Verified 10/25/17 14:14 IV Dye [Iodinated Contrast Media - IV Dye] - Home Medications Home Medications: Ambulatory Orders Multivitamins [Multivit ([facility] Formulary)] 1 tab PO DAILY 07/15/16 Aspirin [ASA -] 81 mg PO DAILY tab.chew 10/30/16 Atorvastatin Ca [Lipitor] 10 mg PO HS #30 tab 12/11/16 Pantoprazole Sodium [Protonix] 40 mg PO DAILY #30 tab 12/11/16 Collagenase Clostridium Hist. [Santyl] 1 applic TP DAILY #90 oint...g. 05/02/17 Ranolazine [Ranexa] 1,000 mg PO Q12H 09/30/17 Acetaminophen [Tylenol .Regular Strength -] 650 mg PO Q4H PRN tablet 10/11/17 Heparin - 5,000 unit SQ BID vial 10/11/17 Insulin (Levemir) [Levemir Vial] 10 units SQ HS units 10/11/17 Insulin (Levemir) [Levemir Vial] 29 units SQ AM units 10/11/17 Insulin Sliding Scale [Novolog Vial Sliding Scale -] 1 vial SQ ACHS units 10/11 Lactobacillus Acidophilus [Bacid -] 1 tab PO BID tab 10/11/17 Lactulose (Oral Use) [Cephulac -] 20 gm PO QID udc 10/11/17 Midodrine HCl [Proamatine -] 5 mg PO TID-MID tablet 10/11/17 Nadolol 20 mg PO DAILY #30 tab 10/11/17 Nystatin Powder [Nystop Powder -] 1 applic TP DAILY applic 10/11/17 Piperacillin/Tazob 3.375 gm [Zosyn -] 3.375 gm IVPB Q8H-IV vial 10/11/17 Family Disease History - Family Disease History Family Disease History: Diabetes: Brother (alcoholic cirrhosis), Sister, CA: Mother (breast Ca), Other: Father ( from alcohol related complications) Review of Systems - Review of Systems Constitutional: reports: No Symptoms Eyes: reports: No Symptoms HENT: reports: No Symptoms Neck: reports: No Symptoms Cardiovascular: reports: No Symptoms Respiratory: reports: No Symptoms Gastrointestinal: reports: No Symptoms Genitourinary: reports: No Symptoms Musculoskeletal: reports: Other Integumentary: reports: Erythema, Wound (breakdown with necrotic skin) Neurological: reports: No Symptoms Endocrine: reports: No Symptoms Hematology/Lymphatic: reports: No Symptoms Psychiatric: reports: No Symptoms Physical Exam Vital Signs: Vital Signs Temperature 98.2 F 10/26/17 14:29 Pulse Rate 56 L 10/26/17 14:29 Respiratory Rate 20 10/26/17 14:29 Blood Pressure 108/50 10/26/17 14:29 O2 Sat by Pulse Oximetry (%) 100 10/26/17 09:00 Constitutional: Yes: Well Nourished, No Distress, Calm Cardiovascular: Yes: Regular Rate and Rhythm Respiratory: Yes: Regular, CTA Bilaterally Gastrointestinal: Yes: Normal Bowel Sounds, Soft Musculoskeletal: Yes: Other Extremities: Yes: Other Integumentary: Yes: Other Wound/Incision: Yes: Draining, Other (broke down) Neurological: Yes: Alert, Oriented Psychiatric: Yes: Alert, Oriented Labs: CBC, BMP 10/26/17 06:00 10/26/17 06:00 Imaging - Results Chest X-ray: Report Reviewed, Image Reviewed Assessment/Plan Problem List - Problems (1) CKD (chronic kidney disease) Code(s): N18.9 - CHRONIC KIDNEY DISEASE, UNSPECIFIED Qualifiers: Chronic kidney disease stage: unspecified stage Qualified Code(s): N18.9 - Chronic kidney disease, unspecified (2) Cellulitis of toe, left Code(s): L03.032 - CELLULITIS OF LEFT TOE Assessment/Plan Assessment: 57 year old male with pustulant drainage from L lateral wound Plan: 1. L foot diabetic foot ulcer/wound s/p 5th toe amputation 09/30 2. DM II 3. CAD 4. Cirrhosis with portal hypertensive gastropathy, ascites, hepatic encephalopathy 7. Hypotension 8. Thrombocytopenia 9. Hyperlipidemia - Continue Lipitor plan we will continue the current abx await for cx from the or rest as per the team
[2017-10-26] MEDS: ATORVASTATIN CA 10 MG TABLET (FP) PO SCH (23:08)
[2017-10-27] MEDS ORDERED: DEXTROSE 5%-WATER - 50 ML IVPB ONE ×3 (02:06→17:30)
[2017-10-27] MEDS ORDERED: PIPERACILLIN/TAZOBACTAM 3.375 GM VIAL IVPB ONE ×3 (02:06→17:30)
[2017-10-27] MEDS: PIPERACILLIN/TAZOB 3.375 GM 3.375 GM in DEXTROSE 5%-WATER - 50 ML IVPB SCH ×4 (09:19→17:48)
[2017-10-27] MEDS: INSULIN (LEVEMIR) 100 UNITS/ML UNITS SQ SCH ×2 (09:19→21:41)
[2017-10-27] MEDS: INSULIN SLIDING SCALE (NOVOLOG) 1 VIAL SQ SCH ×4 (09:19→21:41)
[2017-10-27] MEDS ORDERED: LIDOCAINE HCL 1%, 10 MG/ML (20ML VIAL) ONE (10:44)
[2017-10-27] MEDS ORDERED: BUPIVACAINE HCL/PF 0.5% (5MG/ML) 10 ML VIAL ONE (10:44)
[2017-10-27] MEDS ORDERED: MIDAZOLAM HCL 2 MG/2 ML SINGLE DOSE VIAL ONE (10:52)
[2017-10-27] MEDS ORDERED: LIDOCAINE HCL 1%, 10 MG/ML (20ML VIAL) NR ONE (11:00)
--- NOTE | 2017-10-27 11:07 | PN ---
Progress Note, Physician History of Present Illness: post op stable doing well dressing on the leg - Current Medication List Current Medications: Active Medications Aspirin (Asa -) 81 mg PO DAILY [facility] Last Admin: 10/26/17 09:58 Dose: 81 mg Atorvastatin Calcium (Lipitor -) 10 mg PO HS [facility] Last Admin: 10/26/17 23:08 Dose: 10 mg Piperacillin Sod/Tazobactam (Sod 3.375 gm/ Dextrose) 50 mls @ 100 mls/hr IVPB Q8H-IV [facility]; Protocol Last Admin: 10/27/17 09:32 Dose: 100 mls/hr Insulin Aspart (Novolog Vial Sliding Scale -) 1 vial SQ ACHS [facility]; Protocol Last Admin: 10/27/17 09:19 Dose: Not Given Insulin Detemir (Levemir Vial) 10 units SQ HS [facility] Last Admin: 10/26/17 23:08 Dose: 10 units Insulin Detemir (Levemir Vial) 29 units SQ ACBK [facility] Last Admin: 10/27/17 09:19 Dose: Not Given Lactulose (Cephulac (Oral Use)) 20 gm PO QID [facility] Last Admin: 10/26/17 23:17 Dose: Not Given Midodrine (Proamatine -) 5 mg PO TID-MID [facility] Last Admin: 10/26/17 18:01 Dose: 5 mg Nadolol (Corgard -) 20 mg PO DAILY [facility] Last Admin: 10/26/17 11:15 Dose: 20 mg Nystatin (Nystop Powder -) 1 applic TP DAILY [facility] Last Admin: 10/26/17 11:15 Dose: 1 applic Oxycodone HCl (Roxicodone -) 5 mg PO Q6H PRN PRN Reason: PAIN LEVEL 4 - 6 Ranolazine (Ranexa -) 1,000 mg PO BID [facility] Last Admin: 10/26/17 23:09 Dose: 1,000 mg - Objective Vital Signs: Vital Signs Temperature 98 F 10/27/17 09:36 Pulse Rate 57 L 10/27/17 09:36 Respiratory Rate 20 10/27/17 09:36 Blood Pressure 128/56 10/27/17 09:36 O2 Sat by Pulse Oximetry (%) 100 10/26/17 21:00 Constitutional: Yes: No Distress, Calm Cardiovascular: Yes: Regular Rate and Rhythm Respiratory: Yes: Regular, CTA Bilaterally Gastrointestinal: Yes: Normal Bowel Sounds, Soft Musculoskeletal: Yes: WNL Extremities: Yes: Other Wound/Incision: Yes: Dressing Dry and Intact Neurological: Yes: Alert, Oriented Labs: CBC, BMP 10/26/17 06:00 10/26/17 06:00 INR, PTT INR 1.08 (0.82-1.09) 10/25/17 14:30 Assessment/Plan Problem List - Problems (1) CKD (chronic kidney disease) Code(s): N18.9 - CHRONIC KIDNEY DISEASE, UNSPECIFIED Qualifiers: Chronic kidney disease stage: unspecified stage Qualified Code(s): N18.9 - Chronic kidney disease, unspecified (2) Cellulitis of toe, left Code(s): L03.032 - CELLULITIS OF LEFT TOE Assessment/Plan Assessment: 57 year old male with pustulant drainage from L lateral wound Plan: 1. L foot diabetic foot ulcer/wound s/p 5th toe amputation 09/30 2. DM II 3. CAD 4. Cirrhosis with portal hypertensive gastropathy, ascites, hepatic encephalopathy 7. Hypotension 8. Thrombocytopenia 9. Hyperlipidemia - Continue Lipitor plan continue abx await for cx report wound care rest as per the team
--- NOTE | 2017-10-27 11:47 | OP ---
Operative Note - Note: Operative Date: 10/27/17 Pre-Operative Diagnosis: Left foot diabetic ulcer with osteomyelitis Operation: Left foot debridement/lavage with fifth metatarsal resection Post-Operative Diagnosis: Same as Pre-op Surgeon: Beka Aguirre Anesthesia: Local, MAC Specimens Removed: Bone left foot Estimated Blood Loss (mls): 10 Instrument used (Debridements only): #15 blade scalpel, scissors and forceps Operative Report Dictated: Yes
--- NOTE | 2017-10-27 12:47 | OP ---
DATE OF OPERATION: 10/27/2017 PREOPERATIVE DIAGNOSIS: Left foot diabetic foot ulcer with osteomyelitis. POSTOPERATIVE DIAGNOSIS: Left foot diabetic foot ulcer with osteomyelitis. PROCEDURE: Left foot debridement and lavage with metatarsal resection. SURGEON: Beka Aguirre DPM COLD PRESS OPERATOR: , PGY-3, [facility]. ANESTHESIA: IV sedation with local. HEMOSTASIS: Surgical dissection. PATHOLOGY: Bone, left foot. COMPLICATIONS: None. Patient was brought to the operating room and placed on the operating table in the supine position. Following induction of IV sedation, local anesthesia was achieved utilizing 14 mL of 2% lidocaine pain. The left foot was scrubbed, prepped, and draped in the usual sterile fashion. I elected to not use a tourniquet during the course of the procedure. Attention was directed to the left lateral foot where a diabetic foot ulcer with exposed 5th metatarsal stump was visualized and appreciated. I began by performing a 3.0-cm linear longitudinal incision at the proximal aspect of the metatarsal overlying the metatarsal base. The incision was continued distally, and a circumferential-type incision to circumscribe the ulcer. The diabetic foot ulcer was noted to be fibronecrotic with moderate fibrotic fluff. An excisional debridement was performed of the left foot diabetic foot ulcer utilizing a sterile 15 blade, sterile scissors, and forceps to the level of subcutaneous tissue. All devitalized necrotic tissue was subsequently removed. An appropriate wound culture was then obtained. Next, I visualized the 5th metatarsal which was noted to be exposed. The 5th metatarsal was resected just distal to the base of the metatarsal. We took care to preserve the metatarsal base and all its attachments. The 5th metatarsal proximal shaft was removed from the operative site. A portion of the bone was sent for pathology as well as bone culture. The surgical site was copiously irrigated with sterile saline mixed with bacitracin. The proximal aspect of the incision was coapted and maintained utilizing 3-0 nylon in a simple interrupted suture fashion. The remainder of the wound was packed open utilizing 1/2-inch Iodoform packing. Following the conclusion of the procedure, the surgical site was covered with Xeroform, and a sterile compressive dressing was applied to the left foot consisting of sterile gauze, Kerlix, and Mook wrap. Patient tolerated the procedure and anesthesia well, without complications. He was transferred from the operating room to recovery unit with vital signs stable and neurovasculature intact to the left foot. SYDNEY RONDON/[id number]
--- NOTE | 2017-10-27 13:57 | PN ---
Progress Note, Physician Chief Complaint: patient went to OR today for debridement - Current Medication List Current Medications: Active Medications Aspirin (Asa -) 81 mg PO DAILY [facility] Atorvastatin Calcium (Lipitor -) 10 mg PO HS [facility] Fentanyl (Sublimaze Injection -) 25 mcg IVPUSH [id number] PRN PRN Reason: PAIN-PACU ORDER X 4 DOSES ONLY Stop: 10/27/17 18:00 Piperacillin Sod/Tazobactam (Sod 3.375 gm/ Dextrose) 50 mls @ 100 mls/hr IVPB Q8H-IV [facility]; Protocol Insulin Aspart (Novolog Vial Sliding Scale -) 1 vial SQ ACHS [facility]; Protocol Insulin Detemir (Levemir Vial) 10 units SQ HS [facility] Insulin Detemir (Levemir Vial) 29 units SQ ACBK [facility] Lactulose (Cephulac (Oral Use)) 20 gm PO QID [facility] Midodrine (Proamatine -) 5 mg PO TID-MID [facility] Nadolol (Corgard -) 20 mg PO DAILY [facility] Nystatin (Nystop Powder -) 1 applic TP DAILY [facility] Oxycodone HCl (Roxicodone -) 5 mg PO Q6H PRN PRN Reason: PAIN LEVEL 4 - 6 Ranolazine (Ranexa -) 1,000 mg PO BID [facility] Sodium Hypochlorite (Dakin's Solution 0.25% (Half-Strength) -) 1 applic TP DAILY [facility] - Objective Vital Signs: Vital Signs Temperature 98.0 F 10/27/17 11:41 Pulse Rate 49 L 10/27/17 12:30 Respiratory Rate 16 10/27/17 12:30 Blood Pressure 151/65 10/27/17 12:30 O2 Sat by Pulse Oximetry (%) 99 10/27/17 12:30 Constitutional: Yes: Calm Neck: Yes: Trachea Midline Cardiovascular: Yes: Regular Rate and Rhythm, S1, S2 Respiratory: Yes: CTA Bilaterally Gastrointestinal: Yes: Normal Bowel Sounds, Soft Extremities: Yes: Other (left foot dressing) Neurological: Yes: Alert, Oriented Labs: CBC, BMP 10/26/17 06:00 10/26/17 06:00 INR, PTT INR 1.08 (0.82-1.09) 10/25/17 14:30 Problem List - Problems (1) Diabetic ulcer of left foot Assessment/Plan: - Note: Operative Date: 10/27/17 Pre-Operative Diagnosis: Left foot diabetic ulcer with osteomyelitis Operation: Left foot debridement/lavage with fifth metatarsal resection Post-Operative Diagnosis: Same as Pre-op Surgeon: Beka Aguirre Anesthesia: Local, MAC Specimens Removed: Bone left foot Estimated Blood Loss (mls): 10 Instrument used (Debridements only): #15 blade scalpel, scissors and forceps Operative Report Dictated: Yes iv abx podiatry Code(s): E11.621 - TYPE 2 DIABETES MELLITUS WITH FOOT ULCER; L97.529 - NON- PRESSURE CHRONIC ULCER OTH PRT LEFT FOOT W UNSP SEVERITY Qualifiers: Diabetic foot ulcer location: other Diabetes mellitus type: type 1 Non- pressure ulcer stage: with other severity Qualified Code(s): E10.621 - Type 1 diabetes mellitus with foot ulcer; L97.528 - Non-pressure chronic ulcer of other part of left foot with other specified severity (2) Type 2 diabetes mellitus with diabetic neuropathy, unspecified Assessment/Plan: tight glycemic control bgm sliding scale levemir [id number] Code(s): E11.40 - TYPE 2 DIABETES MELLITUS WITH DIABETIC NEUROPATHY, UNSP Qualifiers: Diabetes mellitus termite inspector insulin use: with termite inspector use Qualified Code( s): E11.40 - Type 2 diabetes mellitus with diabetic neuropathy, unspecified; Z79.4 - group home (current) use of insulin (3) CAD (coronary artery disease) Assessment/Plan: ranexa,asa,statin Code(s): I25.10 - ATHSCL HEART DISEASE OF [place] CORONARY ARTERY W/O ANG PCTRS
[2017-10-27] MEDS: LACTULOSE 20 GM/30 ML UDC (FOR ORAL USE ONLY) PO SCH ×4 (13:59→21:40)
[2017-10-27] MEDS: NADOLOL 20 MG TABLET (FP) PO SCH (13:59)
[2017-10-27] MEDS: ASPIRIN 81 MG CHEWABLE TABLETS PO SCH (13:59)
[2017-10-27] MEDS: MIDODRINE HCL 5 MG TABLET PO SCH ×3 (14:00→17:57)
[2017-10-27] MEDS: NYSTATIN POWDER 100,000 UNITS/GM - 15 GM TOPICAL POWDER TP SCH (14:00)
[2017-10-27] MEDS: RANOLAZINE E.R. 1,000 MG TABLET (FP) PO SCH ×2 (14:00→21:41)
[2017-10-27] MEDS ORDERED: INSULIN (NOVOLOG) ASPART 100 UNITS/ML 10ML VIAL ONE ×2 (17:31→21:12)
[2017-10-27] MEDS ORDERED: PT OWN MED DRAWER 7, Y5N ONE (18:43)
[2017-10-27] MEDS ORDERED: RANOLAZINE E.R. 500 MG TABLET (FP) ONE (21:12)
[2017-10-27] MEDS: HEPARIN NA (PORCINE) 5,000 UNITS/ML 1ML VIAL SQ SCH (21:41)
[2017-10-27] MEDS: ATORVASTATIN CA 10 MG TABLET (FP) PO SCH (21:42)
[2017-10-27] MEDS: oxyCODONE HCL 5 MG TABLET PO PRN (23:53)
[2017-10-28] MEDS ORDERED: PIPERACILLIN/TAZOBACTAM 3.375 GM VIAL IVPB ONE ×3 (01:11→17:24)
[2017-10-28] MEDS ORDERED: DEXTROSE 5%-WATER - 50 ML IVPB ONE ×3 (01:11→17:24)
[2017-10-28] MEDS: PIPERACILLIN/TAZOB 3.375 GM 3.375 GM in DEXTROSE 5%-WATER - 50 ML IVPB SCH ×3 (01:34→17:28)
--- NOTE | 2017-10-28 06:00 | PN ---
Progress Note (short form) - Note Progress Note: Podiatry F/U; Seen/evaluated at bedside NAD. Pain controlled, denies F/V/N/C/SOB/CP. AFebrile. S/p L foot debridement/lavage with metatarsal resection POD#1. GEORGE: L foot: dressing C/D/I, no active bleeding. Sutures coapted proximally and fifth ray diabetic ulcer packed distally. Underlying fibrogranular base, no purulence, no fluctuance, decreased periwound erythema, no streaking cellulitis , no signs of active infection. OR Cx: pending Imp: 57 year old IDDM M s/p L foot debridement/lavage with metatarsal resection for DFU and osteomyelitis. POD#1 1. IV abx per ID 2. Saline irrigation at bedside, xeroform + DSD L foot 3. Partial WB L heel with surgical shoe 4. F/u OR cultures 5. I do not believe patient is scheduled for angio today. Would confirm with Dr. Gasca. Discussed case with him, if wound does not heal appropriately will need angio. 6. Will follow. Angel Aguirre DPM
[2017-10-28] MEDS ORDERED: PT OWN MED DRAWER 7, Y5N ONE ×2 (06:09→11:00)
[2017-10-28] MEDS: INSULIN (LEVEMIR) 100 UNITS/ML UNITS SQ SCH ×2 (06:23→22:19)
[2017-10-28] MEDS: INSULIN SLIDING SCALE (NOVOLOG) 1 VIAL SQ SCH ×4 (06:23→22:18)
[2017-10-28 09:02] LABS: ALBUMIN 2.1 g/dl (3.4-5.0); ANION GAP 9 (8-16); BILIRUBIN,TOTAL 1.2 mg/dL (0.2-1.0); BLOOD UREA NITROGEN 16 mg/dL (7-18); CHLORIDE 106 mmol/L (98-107); CO2 24 mmol/L (21-32); GLUCOSE,RANDOM 127 mg/dL (74-106); POTASSIUM 4.1 mmol/L (3.5-5.1); SGOT/AST 35 U/L (15-37); SGPT/ALT 20 U/L (12-78); SODIUM 139 mmol/L (136-145); TOT PROT 6.9 g/dl (6.4-8.2)
[2017-10-28 09:05] LABS: ALK PHOS 132 U/L (45-117); CALCIUM 8.3 mg/dL (8.5-10.1); CREATININE 1.1 mg/dL (0.7-1.3)
--- NOTE | 2017-10-28 09:20 | PN ---
Progress Note (short form) - Note Progress Note: POD #1 - s/p debridement and resection of 5th metatarsal left foot under MAC. VSS. Pt. doing well, resting comfortably in bed. No complaints. No apparent anesthetic complications noted. Continue current care.
[2017-10-28] MEDS: ASPIRIN 81 MG CHEWABLE TABLETS PO SCH (11:01)
[2017-10-28] MEDS: HEPARIN NA (PORCINE) 5,000 UNITS/ML 1ML VIAL SQ SCH ×2 (11:01→22:19)
[2017-10-28] MEDS: NYSTATIN POWDER 100,000 UNITS/GM - 15 GM TOPICAL POWDER TP SCH (11:02)
[2017-10-28] MEDS: NADOLOL 20 MG TABLET (FP) PO SCH (11:03)
[2017-10-28] MEDS: RANOLAZINE E.R. 1,000 MG TABLET (FP) PO SCH ×2 (11:03→22:20)
[2017-10-28] MEDS: MIDODRINE HCL 5 MG TABLET PO SCH ×3 (11:03→17:28)
[2017-10-28] MEDS: SODIUM HYPOCHLORITE 0.25%- 473 ML BULK BOTTLE TP SCH (11:07)
[2017-10-28] MEDS: LACTULOSE 20 GM/30 ML UDC (FOR ORAL USE ONLY) PO SCH ×4 (11:08→22:19)
[2017-10-28] MEDS ORDERED: INSULIN (NOVOLOG) ASPART 100 UNITS/ML 10ML VIAL ONE (11:52)
--- NOTE | 2017-10-28 12:07 | PN ---
Progress Note, Physician Chief Complaint: Necrosis of Diabetic Foot Ulcer History of Present Illness: NAD Sitting at the edge of the bed at bedside Seen by Podiatry, dressing changed this am by podiatry Had debridement yesterday awaiting pathology C&S - Current Medication List Current Medications: Active Medications Aspirin (Asa -) 81 mg PO DAILY [facility] Last Admin: 10/28/17 11:01 Dose: 81 mg Atorvastatin Calcium (Lipitor -) 10 mg PO HS [facility] Last Admin: 10/27/17 21:42 Dose: 10 mg Heparin Sodium (Porcine) (Heparin -) 5,000 unit SQ BID [facility] Last Admin: 10/28/17 11:01 Dose: 5,000 unit Piperacillin Sod/Tazobactam (Sod 3.375 gm/ Dextrose) 50 mls @ 100 mls/hr IVPB Q8H-IV [facility]; Protocol Last Admin: 10/28/17 11:29 Dose: 100 mls/hr Insulin Aspart (Novolog Vial Sliding Scale -) 1 vial SQ ACHS [facility]; Protocol Last Admin: 10/28/17 11:50 Dose: 4 units Insulin Detemir (Levemir Vial) 10 units SQ HS [facility] Last Admin: 10/27/17 21:41 Dose: 10 units Insulin Detemir (Levemir Vial) 29 units SQ ACBK [facility] Last Admin: 10/28/17 06:23 Dose: Not Given Lactulose (Cephulac (Oral Use)) 20 gm PO QID [facility] Last Admin: 10/28/17 11:08 Dose: Not Given Midodrine (Proamatine -) 5 mg PO TID-MID [facility] Last Admin: 10/28/17 11:03 Dose: 5 mg Nadolol (Corgard -) 20 mg PO DAILY [facility] Last Admin: 10/28/17 11:03 Dose: 20 mg Nystatin (Nystop Powder -) 1 applic TP DAILY [facility] Last Admin: 10/28/17 11:02 Dose: 1 applic Oxycodone HCl (Roxicodone -) 5 mg PO Q6H PRN PRN Reason: PAIN LEVEL 4 - 6 Last Admin: 10/27/17 23:53 Dose: 5 mg Ranolazine (Ranexa -) 1,000 mg PO BID [facility] Last Admin: 10/28/17 11:03 Dose: 1,000 mg Sodium Hypochlorite (Dakin's Solution 0.25% (Half-Strength) -) 1 applic TP DAILY [facility] Last Admin: 10/28/17 11:07 Dose: 1 applic - Objective Vital Signs: Vital Signs Temperature 98.9 F 10/28/17 05:34 Pulse Rate 60 10/28/17 05:34 Respiratory Rate 20 10/28/17 05:34 Blood Pressure 115/56 10/28/17 05:34 O2 Sat by Pulse Oximetry (%) 99 10/27/17 21:00 Constitutional: Yes: Well Nourished, No Distress, Calm Cardiovascular: Yes: Regular Rate and Rhythm Respiratory: Yes: Regular Wound/Incision: Yes: Dressing Dry and Intact Neurological: Yes: Alert, Oriented Psychiatric: Yes: Alert, Oriented Labs: CBC, BMP 10/26/17 06:00 10/28/17 07:00 INR, PTT INR 1.08 (0.82-1.09) 10/25/17 14:30 Problem List - Problems (1) CKD (chronic kidney disease) Assessment/Plan: -Cr at baseline -Monitor trend Code(s): N18.9 - CHRONIC KIDNEY DISEASE, UNSPECIFIED Qualifiers: Chronic kidney disease stage: unspecified stage Qualified Code(s): N18.9 - Chronic kidney disease, unspecified (2) Type 2 diabetes mellitus with diabetic neuropathy, unspecified Assessment/Plan: -BGM ACHS -Insulin coverage -Levemir BID -Diabetic diet -Last A1c at 5.6 Code(s): E11.40 - TYPE 2 DIABETES MELLITUS WITH DIABETIC NEUROPATHY, UNSP Qualifiers: Diabetes mellitus care home insulin use: with care home use Qualified Code( s): E11.40 - Type 2 diabetes mellitus with diabetic neuropathy, unspecified; Z79.4 - intermediate accountant (current) use of insulin (3) Anemia Assessment/Plan: -Anemia of chronic disease and Bleeding esophagea varices -EGD last admission by Dr Nash, varices stabilized -On Nadolol for esophageal varices -stable -monitor trend Code(s): D64.9 - ANEMIA, UNSPECIFIED (4) Cellulitis of toe, left Assessment/Plan: -Seen by podiatry -ID consult appreciated -IV Zosyn Q8H -Debridement yesterday by Dr Aguirre -Oxycodone 5 mg Q6H PRN for pain Code(s): L03.032 - CELLULITIS OF LEFT TOE (5) Hepatic encephalopathy Assessment/Plan: -On Lactulose -Please titrate lactulose until 4 BM/day are achieved Code(s): K72.90 - HEPATIC FAILURE, UNSPECIFIED WITHOUT COMA (6) CAD (coronary artery disease) Assessment/Plan: -Aspirin 81 mg po daily -Atorvastatin 10 mg po HS Code(s): I25.10 - ATHSCL HEART DISEASE OF [place] CORONARY ARTERY W/O ANG PCTRS Assessment/Plan see problem list DVT prophylaxis
--- NOTE | 2017-10-28 13:30 | PN ---
Progress Note, Physician History of Present Illness: post op stable doing well dressing on the leg cx results noted - Current Medication List Current Medications: Active Medications Aspirin (Asa -) 81 mg PO DAILY [facility] Last Admin: 10/28/17 11:01 Dose: 81 mg Atorvastatin Calcium (Lipitor -) 10 mg PO HS [facility] Last Admin: 10/27/17 21:42 Dose: 10 mg Heparin Sodium (Porcine) (Heparin -) 5,000 unit SQ BID [facility] Last Admin: 10/28/17 11:01 Dose: 5,000 unit Piperacillin Sod/Tazobactam (Sod 3.375 gm/ Dextrose) 50 mls @ 100 mls/hr IVPB Q8H-IV [facility]; Protocol Last Admin: 10/28/17 11:29 Dose: 100 mls/hr Insulin Aspart (Novolog Vial Sliding Scale -) 1 vial SQ ACHS [facility]; Protocol Last Admin: 10/28/17 11:50 Dose: 4 units Insulin Detemir (Levemir Vial) 10 units SQ HS [facility] Last Admin: 10/27/17 21:41 Dose: 10 units Insulin Detemir (Levemir Vial) 29 units SQ ACBK [facility] Last Admin: 10/28/17 06:23 Dose: Not Given Lactulose (Cephulac (Oral Use)) 20 gm PO QID [facility] Last Admin: 10/28/17 11:08 Dose: Not Given Midodrine (Proamatine -) 5 mg PO TID-MID [facility] Last Admin: 10/28/17 11:03 Dose: 5 mg Nadolol (Corgard -) 20 mg PO DAILY [facility] Last Admin: 10/28/17 11:03 Dose: 20 mg Nystatin (Nystop Powder -) 1 applic TP DAILY [facility] Last Admin: 10/28/17 11:02 Dose: 1 applic Oxycodone HCl (Roxicodone -) 5 mg PO Q6H PRN PRN Reason: PAIN LEVEL 4 - 6 Last Admin: 10/27/17 23:53 Dose: 5 mg Ranolazine (Ranexa -) 1,000 mg PO BID [facility] Last Admin: 10/28/17 11:03 Dose: 1,000 mg Sodium Hypochlorite (Dakin's Solution 0.25% (Half-Strength) -) 1 applic TP DAILY [facility] Last Admin: 10/28/17 11:07 Dose: 1 applic - Objective Vital Signs: Vital Signs Temperature 98.9 F 10/28/17 05:34 Pulse Rate 60 10/28/17 05:34 Respiratory Rate 20 10/28/17 05:34 Blood Pressure 115/56 10/28/17 05:34 O2 Sat by Pulse Oximetry (%) 99 10/27/17 21:00 Constitutional: Yes: No Distress, Calm Cardiovascular: Yes: Regular Rate and Rhythm Respiratory: Yes: Regular, CTA Bilaterally Gastrointestinal: Yes: Normal Bowel Sounds, Soft Musculoskeletal: Yes: WNL Extremities: Yes: Other Wound/Incision: Yes: Dressing Dry and Intact Neurological: Yes: Alert, Oriented Psychiatric: Yes: Alert Labs: CBC, BMP 10/26/17 06:00 10/28/17 07:00 INR, PTT INR 1.08 (0.82-1.09) 10/25/17 14:30 Assessment/Plan Problem List - Problems (1) CKD (chronic kidney disease) Code(s): N18.9 - CHRONIC KIDNEY DISEASE, UNSPECIFIED Qualifiers: Chronic kidney disease stage: unspecified stage Qualified Code(s): N18.9 - Chronic kidney disease, unspecified (2) Cellulitis of toe, left Code(s): L03.032 - CELLULITIS OF LEFT TOE Assessment/Plan Assessment: 57 year old male with pustulant drainage from L lateral wound Plan: 1. L foot diabetic foot ulcer/wound s/p 5th toe amputation 09/30 2. DM II 3. CAD 4. Cirrhosis with portal hypertensive gastropathy, ascites, hepatic encephalopathy 7. Hypotension 8. Thrombocytopenia 9. Hyperlipidemia - Continue Lipitor plan continue abx await for sensitivites wound care rest as per the team
[2017-10-28] MEDS: oxyCODONE HCL 5 MG TABLET PO PRN (18:42)
[2017-10-28] MEDS ORDERED: RANOLAZINE E.R. 500 MG TABLET (FP) ONE (21:22)
[2017-10-28] MEDS: ATORVASTATIN CA 10 MG TABLET (FP) PO SCH (22:19)
[2017-10-29] MEDS ORDERED: DEXTROSE 5%-WATER - 50 ML IVPB ONE ×3 (01:31→18:58)
[2017-10-29] MEDS ORDERED: PIPERACILLIN/TAZOBACTAM 3.375 GM VIAL IVPB ONE ×3 (01:31→18:58)
[2017-10-29] MEDS: PIPERACILLIN/TAZOB 3.375 GM 3.375 GM in DEXTROSE 5%-WATER - 50 ML IVPB SCH ×3 (01:49→19:01)
[2017-10-29] MEDS: INSULIN SLIDING SCALE (NOVOLOG) 1 VIAL SQ SCH ×4 (06:08→22:37)
[2017-10-29] MEDS: INSULIN (LEVEMIR) 100 UNITS/ML UNITS SQ SCH ×2 (06:09→22:37)
--- NOTE | 2017-10-29 09:23 | PN ---
Progress Note, Physician History of Present Illness: patient doing well no issues awaiting for finalization of cx and sensitivities no complaints - Current Medication List Current Medications: Active Medications Aspirin (Asa -) 81 mg PO DAILY [facility] Last Admin: 10/28/17 11:01 Dose: 81 mg Atorvastatin Calcium (Lipitor -) 10 mg PO HS [facility] Last Admin: 10/28/17 22:19 Dose: 10 mg Heparin Sodium (Porcine) (Heparin -) 5,000 unit SQ BID [facility] Last Admin: 10/28/17 22:19 Dose: 5,000 unit Piperacillin Sod/Tazobactam (Sod 3.375 gm/ Dextrose) 50 mls @ 100 mls/hr IVPB Q8H-IV [facility]; Protocol Last Admin: 10/29/17 01:49 Dose: 100 mls/hr Insulin Aspart (Novolog Vial Sliding Scale -) 1 vial SQ ACHS [facility]; Protocol Last Admin: 10/29/17 06:08 Dose: Not Given Insulin Detemir (Levemir Vial) 10 units SQ HS [facility] Last Admin: 10/28/17 22:19 Dose: 10 units Insulin Detemir (Levemir Vial) 29 units SQ ACBK [facility] Last Admin: 10/29/17 06:09 Dose: 29 units Lactulose (Cephulac (Oral Use)) 20 gm PO QID [facility] Last Admin: 10/28/17 22:19 Dose: 20 gm Midodrine (Proamatine -) 5 mg PO TID-MID [facility] Last Admin: 10/28/17 17:28 Dose: 5 mg Nadolol (Corgard -) 20 mg PO DAILY [facility] Last Admin: 10/28/17 11:03 Dose: 20 mg Nystatin (Nystop Powder -) 1 applic TP DAILY [facility] Last Admin: 10/28/17 11:02 Dose: 1 applic Oxycodone HCl (Roxicodone -) 5 mg PO Q6H PRN PRN Reason: PAIN LEVEL 4 - 6 Last Admin: 10/28/17 18:42 Dose: 5 mg Ranolazine (Ranexa -) 1,000 mg PO BID [facility] Last Admin: 10/28/17 22:20 Dose: 1,000 mg Sodium Hypochlorite (Dakin's Solution 0.25% (Half-Strength) -) 1 applic TP DAILY [facility] Last Admin: 10/28/17 11:07 Dose: 1 applic - Objective Vital Signs: Vital Signs Temperature 98.3 F 10/29/17 06:00 Pulse Rate 56 L 10/29/17 06:00 Respiratory Rate 20 10/28/17 22:38 Blood Pressure 132/71 10/29/17 06:00 O2 Sat by Pulse Oximetry (%) 98 10/28/17 21:00 Constitutional: Yes: No Distress, Calm Cardiovascular: Yes: Regular Rate and Rhythm Respiratory: Yes: Regular, CTA Bilaterally Gastrointestinal: Yes: Normal Bowel Sounds, Soft Musculoskeletal: Yes: WNL Extremities: Yes: Other Wound/Incision: Yes: Dressing Dry and Intact Neurological: Yes: Alert, Oriented Psychiatric: Yes: Alert, Oriented Labs: CBC, BMP 10/26/17 06:00 10/28/17 07:00 INR, PTT INR 1.08 (0.82-1.09) 10/25/17 14:30 Assessment/Plan Problem List - Problems (1) CKD (chronic kidney disease) Code(s): N18.9 - CHRONIC KIDNEY DISEASE, UNSPECIFIED Qualifiers: Chronic kidney disease stage: unspecified stage Qualified Code(s): N18.9 - Chronic kidney disease, unspecified (2) Cellulitis of toe, left Code(s): L03.032 - CELLULITIS OF LEFT TOE Assessment/Plan Assessment: 57 year old male with pustulant drainage from L lateral wound Plan: 1. L foot diabetic foot ulcer/wound s/p 5th toe amputation 09/30 2. DM II 3. CAD 4. Cirrhosis with portal hypertensive gastropathy, ascites, hepatic encephalopathy 7. Hypotension 8. Thrombocytopenia 9. Hyperlipidemia - Continue Lipitor plan continue abx await for sensitivites wound care rest as per the team
[2017-10-29] MEDS ORDERED: RANOLAZINE E.R. 500 MG TABLET (FP) ONE ×2 (10:23→22:31)
[2017-10-29] MEDS ORDERED: PT OWN MED DRAWER 7, Y5N ONE ×5 (10:23→18:25)
[2017-10-29] MEDS: ASPIRIN 81 MG CHEWABLE TABLETS PO SCH (10:30)
[2017-10-29] MEDS: LACTULOSE 20 GM/30 ML UDC (FOR ORAL USE ONLY) PO SCH ×5 (10:30→22:44)
[2017-10-29] MEDS: NYSTATIN POWDER 100,000 UNITS/GM - 15 GM TOPICAL POWDER TP SCH (10:30)
[2017-10-29] MEDS: HEPARIN NA (PORCINE) 5,000 UNITS/ML 1ML VIAL SQ SCH ×2 (10:31→22:37)
[2017-10-29] MEDS: RANOLAZINE E.R. 1,000 MG TABLET (FP) PO SCH ×2 (10:32→22:36)
[2017-10-29] MEDS: SODIUM HYPOCHLORITE 0.25%- 473 ML BULK BOTTLE TP SCH (10:33)
[2017-10-29] MEDS: NADOLOL 20 MG TABLET (FP) PO SCH (10:33)
[2017-10-29] MEDS: MIDODRINE HCL 5 MG TABLET PO SCH ×3 (10:33→18:22)
--- NOTE | 2017-10-29 12:15 | PN ---
Progress Note, Physician Chief Complaint: awake alert bedside NOTES AND EVENTS REVIEWED - Current Medication List Current Medications: Active Medications Aspirin (Asa -) 81 mg PO DAILY [facility] Last Admin: 10/29/17 10:30 Dose: 81 mg Atorvastatin Calcium (Lipitor -) 10 mg PO HS [facility] Last Admin: 10/28/17 22:19 Dose: 10 mg Heparin Sodium (Porcine) (Heparin -) 5,000 unit SQ BID [facility] Last Admin: 10/29/17 10:31 Dose: 5,000 unit Piperacillin Sod/Tazobactam (Sod 3.375 gm/ Dextrose) 50 mls @ 100 mls/hr IVPB Q8H-IV [facility]; Protocol Last Admin: 10/29/17 10:30 Dose: 100 mls/hr Insulin Aspart (Novolog Vial Sliding Scale -) 1 vial SQ ACHS [facility]; Protocol Last Admin: 10/29/17 11:45 Dose: 2 units Insulin Detemir (Levemir Vial) 10 units SQ HS [facility] Last Admin: 10/28/17 22:19 Dose: 10 units Insulin Detemir (Levemir Vial) 29 units SQ ACBK [facility] Last Admin: 10/29/17 06:09 Dose: 29 units Lactulose (Cephulac (Oral Use)) 20 gm PO QID [facility] Last Admin: 10/29/17 10:46 Dose: Not Given Midodrine (Proamatine -) 5 mg PO TID-MID [facility] Last Admin: 10/29/17 10:33 Dose: 5 mg Nadolol (Corgard -) 20 mg PO DAILY [facility] Last Admin: 10/29/17 10:33 Dose: 20 mg Nystatin (Nystop Powder -) 1 applic TP DAILY [facility] Last Admin: 10/29/17 10:30 Dose: 1 applic Oxycodone HCl (Roxicodone -) 5 mg PO Q6H PRN PRN Reason: PAIN LEVEL 4 - 6 Last Admin: 10/28/17 18:42 Dose: 5 mg Ranolazine (Ranexa -) 1,000 mg PO BID [facility] Last Admin: 10/29/17 10:32 Dose: 1,000 mg Sodium Hypochlorite (Dakin's Solution 0.25% (Half-Strength) -) 1 applic TP DAILY [facility] Last Admin: 10/29/17 10:33 Dose: 1 applic - Objective Vital Signs: Vital Signs Temperature 98.3 F 10/29/17 06:00 Pulse Rate 56 L 10/29/17 06:00 Respiratory Rate 20 10/28/17 22:38 Blood Pressure 132/71 10/29/17 06:00 O2 Sat by Pulse Oximetry (%) 100 10/29/17 12:02 Constitutional: Yes: Mild Distress Eyes: Yes: WNL HENT: Yes: WNL Neck: Yes: WNL Cardiovascular: Yes: WNL Respiratory: Yes: WNL Gastrointestinal: Yes: WNL Genitourinary: Yes: WNL Musculoskeletal: Yes: WNL Extremities: Yes: Amputation, Deformity Edema: No Peripheral Pulses WNL: Yes Integumentary: Yes: Other Wound/Incision: Yes: Dressing Dry and Intact Neurological: Yes: Pre-Existing Deficit ...Motor Strength: LLE Psychiatric: Yes: WNL Labs: CBC, BMP 10/26/17 06:00 10/28/17 07:00 INR, PTT INR 1.08 (0.82-1.09) 10/25/17 14:30 Problem List - Problems (1) CAD (coronary artery disease) Code(s): I25.10 - ATHSCL HEART DISEASE OF [place] CORONARY ARTERY W/O ANG PCTRS (2) CKD (chronic kidney disease) Code(s): N18.9 - CHRONIC KIDNEY DISEASE, UNSPECIFIED Qualifiers: Chronic kidney disease stage: unspecified stage Qualified Code(s): N18.9 - Chronic kidney disease, unspecified (3) Type 2 diabetes mellitus with diabetic neuropathy, unspecified Code(s): E11.40 - TYPE 2 DIABETES MELLITUS WITH DIABETIC NEUROPATHY, UNSP Qualifiers: Diabetes mellitus residential insulin use: with terminal gauger supervisor use Qualified Code( s): E11.40 - Type 2 diabetes mellitus with diabetic neuropathy, unspecified; Z79.4 - termite technician (current) use of insulin (4) 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 Code(s): K75.81 - NONALCOHOLIC STEATOHEPATITIS (HERNANDEZ); K74.60 - UNSPECIFIED CIRRHOSIS OF LIVER (5) Metabolic syndrome Code(s): E88.81 - METABOLIC SYNDROME (6) Open wound of toe Code(s): S91.109A - UNSP OPEN WOUND OF UNSP TOE(S) W/O DAMAGE TO NAIL, INIT Qualifiers: Encounter type: initial encounter Qualified Code(s): S91.109A - Unspecified open wound of unspecified toe(s) without damage to nail, initial encounter (7) Osteomyelitis Code(s): M86.9 - OSTEOMYELITIS, UNSPECIFIED Qualifiers: Osteomyelitis location: foot Laterality: left (8) Osteomyelitis Code(s): M86.9 - OSTEOMYELITIS, UNSPECIFIED (9) Wound infection Code(s): T14.8XXA - OTHER INJURY OF UNSPECIFIED BODY REGION, INITIAL ENCOUNTER; L08.9 - LOCAL INFECTION OF THE SKIN AND SUBCUTANEOUS TISSUE, UNSP (10) Hyperlipidemia Code(s): E78.5 - HYPERLIPIDEMIA, UNSPECIFIED (11) Hypertension Code(s): I10 - ESSENTIAL (PRIMARY) HYPERTENSION (12) Peripheral vascular disease Code(s): I73.9 - PERIPHERAL VASCULAR DISEASE, UNSPECIFIED Assessment/Plan AMPUTATION LEFT TOE IV ABX F/U WITH PODIATRY AND VASC SX DM CONTROL ADA STRICT GLUCOSE CONTROL
--- NOTE | 2017-10-29 19:46 | FALL ---
Fall Exam - Event Witnessed fall: No Location of Fall: Bathroom Fall from: Pt states he was getting up from toilet to get walker and his right knee gave out. He fell landing on his buttocks. No head injury. - Pre-Fall Mental Status: Alert, Oriented, Cooperative Current Medications: Current Medications Generic Name Dose Route Start Last Admin Trade Name Freq PRN Reason Stop Dose Admin Aspirin 81 mg 10/28/17 10:00 10/29/17 10:30 Asa - PO 81 mg DAILY [facility] Administration Atorvastatin Calcium 10 mg 10/27/17 22:00 10/28/17 22:19 Lipitor - PO 10 mg HS [facility] Administration Heparin Sodium (Porcine) 5,000 unit 10/27/17 22:00 10/29/17 10:31 Heparin - SQ 5,000 unit BID [facility] Administration Piperacillin Sod/Tazobactam 50 mls @ 100 mls/hr 10/27/17 18:00 10/29/17 19:01 Sod 3.375 gm/ Dextrose IVPB 100 mls/hr Q8H-IV [facility] Administration Protocol Insulin Aspart 1 vial 10/27/17 16:30 10/29/17 16:43 Novolog Vial Sliding Scale - SQ 2 units ACHS [facility] Administration Protocol Insulin Detemir 10 units 10/27/17 22:00 10/28/17 22:19 Levemir Vial SQ 10 units HS [facility] Administration Insulin Detemir 29 units 10/28/17 07:00 10/29/17 06:09 Levemir Vial SQ 29 units ACBK [facility] Administration Lactulose 20 gm 10/27/17 14:00 10/29/17 18:22 Cephulac (Oral Use) PO Not Given QID [facility] Midodrine 5 mg 10/27/17 14:00 10/29/17 18:22 Proamatine - PO 5 mg TID-MID [facility] Administration Nadolol 20 mg 10/28/17 10:00 10/29/17 10:33 Corgard - PO 20 mg DAILY [facility] Administration Nystatin 1 applic 10/28/17 10:00 10/29/17 10:30 Nystop Powder - TP 1 applic DAILY [facility] Administration Oxycodone HCl 5 mg 10/27/17 11:58 10/28/17 18:42 Roxicodone - PO 5 mg Q6H PRN Administration PAIN LEVEL 4 - 6 Ranolazine 1,000 mg 10/27/17 22:00 10/29/17 10:32 Ranexa - PO 1,000 mg BID [facility] Administration Sodium Hypochlorite 1 applic 10/28/17 10:00 10/29/17 10:33 Dakin's Solution 0.25% (Half-Strength) - TP 1 applic DAILY [facility] Administration - Post-Fall Patient Outcome: Abrasion/Bruise (left knee less than 1cm) Exam Findings: head: NCAT. lungs: CTA B/L. Cardio: S1S2 no murmur, rub. Abd: soft, nont BS + x 4q. M/S: no pain on palpation of head, spine, pelvis, FROM all extremities Treatment: Dressing Vital Signs: Vital Signs Temperature 98.9 F 10/29/17 15:00 Pulse Rate 57 L 10/29/17 19:11 Respiratory Rate 20 10/29/17 15:00 Blood Pressure 145/74 10/29/17 19:11 O2 Sat by Pulse Oximetry (%) 100 10/29/17 12:02 LOC Post-Fall: Awake, Alert, Oriented Identify factors for HIGH RISK for Head Injury: Pt on anticoagulant (Pt refusing CT scan. Risks/benefits discussed. Advised to notify staff if headache. )
[2017-10-29] MEDS: ATORVASTATIN CA 10 MG TABLET (FP) PO SCH (22:37)
[2017-10-30] MEDS ORDERED: PIPERACILLIN/TAZOBACTAM 3.375 GM VIAL IVPB ONE ×2 (01:17→09:25)
[2017-10-30] MEDS ORDERED: DEXTROSE 5%-WATER - 50 ML IVPB ONE ×2 (01:17→09:25)
[2017-10-30] MEDS: PIPERACILLIN/TAZOB 3.375 GM 3.375 GM in DEXTROSE 5%-WATER - 50 ML IVPB SCH ×2 (02:08→09:29)
[2017-10-30 06:37] LABS: SERUM IRON SATURATION 15 % (15-55); TOTAL IRON BINDING CAPACITY 193 ug/dL (250-450); UIBC 165 ug/dL (111-343)
[2017-10-30] MEDS: INSULIN SLIDING SCALE (NOVOLOG) 1 VIAL SQ SCH ×4 (06:47→22:40)
[2017-10-30] MEDS: INSULIN (LEVEMIR) 100 UNITS/ML UNITS SQ SCH ×2 (06:48→22:40)
[2017-10-30 07:20] LABS: HEMATOCRIT 23.1 % (35.4-49); HEMOGLOBIN 8.3 GM/dL (11.7-16.9); MCH 33.4 pg (25.7-33.7); MCHC 35.7 g/dl (32.0-35.9); MEAN CELL VOLUME 93.5 fl (80-96); MEAN PLT VOLUME 7.4 fl (7.5-11.1); PLATELET COUNT 90 K/MM3 (134-434); RBC 2.47 M/mm3 (4.00-5.60); RDW 16.9 % (11.9-15.9); WHITE BLOOD COUNT 4.6 K/mm3 (4.0-10.0)
[2017-10-30 07:37] LABS: ANION GAP 7 (8-16); BLOOD UREA NITROGEN 17 mg/dL (7-18); CALCIUM 8.2 mg/dL (8.5-10.1); CHLORIDE 104 mmol/L (98-107); CO2 25 mmol/L (21-32); GLUCOSE,RANDOM 157 mg/dL (74-106); SODIUM 136 mmol/L (136-145)
[2017-10-30 07:39] LABS: CREATININE 1.2 mg/dL (0.7-1.3)
--- NOTE | 2017-10-30 08:06 | PN ---
Progress Note (short form) - Note Progress Note: Podiatry F/U: Seen/evaluated at bedside, NAD. Pain controlled, denies F/V/N/C/SOB/CP. Afebrile, VSS. Notes having fall yesterday getting out of bathroom. Currently afebrile, VSS. GEORGE: L foot: lateral fifth ray diabetic ulcer mixed fibrogranular base down to muscle, minimal necrosis proximally, no purulence, no fluctuance, no periwound erythema, no ascending cellulitis, no signs of active infection. Minimal tenderness to palpation. Bone Cx: E. Cloacae, E. Faecalis Imp: 57 year old IDDM M s/p L foot debridement with partial resection fifth ray 1. IV abx 2. Dakin's irrigation at bedside 3. Continue local wound care 4. ID f/u 5. Will follow. Needs wound vac placement, just not sure if he is going home vs. rehab. Angel Aguirre DPM
[2017-10-30] MEDS ORDERED: PT OWN MED DRAWER 7, Y5N ONE ×3 (09:24→20:07)
[2017-10-30] MEDS ORDERED: RANOLAZINE E.R. 500 MG TABLET (FP) ONE ×2 (09:24→22:15)
[2017-10-30] MEDS: HEPARIN NA (PORCINE) 5,000 UNITS/ML 1ML VIAL SQ SCH ×2 (09:28→22:36)
[2017-10-30] MEDS: LACTULOSE 20 GM/30 ML UDC (FOR ORAL USE ONLY) PO SCH ×4 (09:29→22:01)
[2017-10-30] MEDS: ASPIRIN 81 MG CHEWABLE TABLETS PO SCH (09:32)
[2017-10-30] MEDS: RANOLAZINE E.R. 1,000 MG TABLET (FP) PO SCH ×2 (09:33→22:38)
[2017-10-30] MEDS: NADOLOL 20 MG TABLET (FP) PO SCH (09:33)
[2017-10-30] MEDS: MIDODRINE HCL 5 MG TABLET PO SCH ×3 (09:33→17:18)
[2017-10-30] MEDS: NYSTATIN POWDER 100,000 UNITS/GM - 15 GM TOPICAL POWDER TP SCH (09:39)
[2017-10-30] MEDS: SODIUM HYPOCHLORITE 0.25%- 473 ML BULK BOTTLE TP SCH (09:52)
--- NOTE | 2017-10-30 10:33 | PN ---
Progress Note, Physician Chief Complaint: AWAKE ALERT NAD DENIES FEVERS OR CHILLS - Current Medication List Current Medications: Active Medications Aspirin (Asa -) 81 mg PO DAILY [facility] Last Admin: 10/30/17 09:32 Dose: 81 mg Atorvastatin Calcium (Lipitor -) 10 mg PO HS [facility] Last Admin: 10/29/17 22:37 Dose: 10 mg Heparin Sodium (Porcine) (Heparin -) 5,000 unit SQ BID [facility] Last Admin: 10/30/17 09:28 Dose: 5,000 unit Piperacillin Sod/Tazobactam (Sod 3.375 gm/ Dextrose) 50 mls @ 100 mls/hr IVPB Q8H-IV [facility]; Protocol Last Admin: 10/30/17 09:29 Dose: 100 mls/hr Insulin Aspart (Novolog Vial Sliding Scale -) 1 vial SQ ACHS [facility]; Protocol Last Admin: 10/30/17 06:47 Dose: 2 units Insulin Detemir (Levemir Vial) 10 units SQ HS [facility] Last Admin: 10/29/17 22:37 Dose: 10 units Insulin Detemir (Levemir Vial) 29 units SQ ACBK [facility] Last Admin: 10/30/17 06:48 Dose: 29 units Lactulose (Cephulac (Oral Use)) 20 gm PO QID [facility] Last Admin: 10/30/17 09:29 Dose: Not Given Midodrine (Proamatine -) 5 mg PO TID-MID [facility] Last Admin: 10/30/17 09:33 Dose: 5 mg Nadolol (Corgard -) 20 mg PO DAILY [facility] Last Admin: 10/30/17 09:33 Dose: 20 mg Nystatin (Nystop Powder -) 1 applic TP DAILY [facility] Last Admin: 10/30/17 09:39 Dose: 1 applic Oxycodone HCl (Roxicodone -) 5 mg PO Q6H PRN PRN Reason: PAIN LEVEL 4 - 6 Last Admin: 10/28/17 18:42 Dose: 5 mg Ranolazine (Ranexa -) 1,000 mg PO BID [facility] Last Admin: 10/30/17 09:33 Dose: 1,000 mg Sodium Hypochlorite (Dakin's Solution 0.25% (Half-Strength) -) 1 applic TP DAILY [facility] Last Admin: 10/30/17 09:52 Dose: Not Given - Objective Vital Signs: Vital Signs Temperature 98.8 F 10/30/17 06:00 Pulse Rate 68 10/30/17 06:00 Respiratory Rate 20 10/30/17 06:00 Blood Pressure 160/64 10/30/17 06:00 O2 Sat by Pulse Oximetry (%) 100 10/29/17 21:00 Constitutional: Yes: No Distress Eyes: Yes: WNL HENT: Yes: WNL Neck: Yes: WNL Cardiovascular: Yes: WNL Respiratory: Yes: WNL Gastrointestinal: Yes: WNL Genitourinary: Yes: WNL Musculoskeletal: Yes: Other Extremities: Yes: Amputation Edema: Yes Edema: LLE: 1+ Peripheral Pulses WNL: Yes Integumentary: Yes: Pressure Ulcer, Other Wound/Incision: Yes: Dressing Dry and Intact Neurological: Yes: Pre-Existing Deficit ...Motor Strength: LLE Psychiatric: Yes: WNL Labs: CBC, BMP 10/30/17 06:50 10/30/17 06:50 INR, PTT INR 1.08 (0.82-1.09) 10/25/17 14:30 Problem List - Problems (1) CAD (coronary artery disease) Code(s): I25.10 - ATHSCL HEART DISEASE OF [place] CORONARY ARTERY W/O ANG PCTRS (2) CKD (chronic kidney disease) Code(s): N18.9 - CHRONIC KIDNEY DISEASE, UNSPECIFIED Qualifiers: Chronic kidney disease stage: unspecified stage Qualified Code(s): N18.9 - Chronic kidney disease, unspecified (3) Type 2 diabetes mellitus with diabetic neuropathy, unspecified Code(s): E11.40 - TYPE 2 DIABETES MELLITUS WITH DIABETIC NEUROPATHY, UNSP Qualifiers: Diabetes mellitus tower equipment installer insulin use: with tower equipment installer use Qualified Code( s): E11.40 - Type 2 diabetes mellitus with diabetic neuropathy, unspecified; Z79.4 - bleacher kraft pulp (current) use of insulin (4) 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 Code(s): K75.81 - NONALCOHOLIC STEATOHEPATITIS (HERNANDEZ); K74.60 - UNSPECIFIED CIRRHOSIS OF LIVER (5) Metabolic syndrome Code(s): E88.81 - METABOLIC SYNDROME (6) Open wound of toe Code(s): S91.109A - UNSP OPEN WOUND OF UNSP TOE(S) W/O DAMAGE TO NAIL, INIT Qualifiers: Encounter type: initial encounter Qualified Code(s): S91.109A - Unspecified open wound of unspecified toe(s) without damage to nail, initial encounter (7) Osteomyelitis Code(s): M86.9 - OSTEOMYELITIS, UNSPECIFIED Qualifiers: Osteomyelitis location: foot Laterality: left (8) Osteomyelitis Code(s): M86.9 - OSTEOMYELITIS, UNSPECIFIED (9) Wound infection Code(s): T14.8XXA - OTHER INJURY OF UNSPECIFIED BODY REGION, INITIAL ENCOUNTER; L08.9 - LOCAL INFECTION OF THE SKIN AND SUBCUTANEOUS TISSUE, UNSP (10) Hyperlipidemia Code(s): E78.5 - HYPERLIPIDEMIA, UNSPECIFIED (11) Hypertension Code(s): I10 - ESSENTIAL (PRIMARY) HYPERTENSION (12) Peripheral vascular disease Code(s): I73.9 - PERIPHERAL VASCULAR DISEASE, UNSPECIFIED Assessment/Plan PODIATRY FOLLOW UP APPRECIATED WOUND VAC NEEDED EITHER AT SNF OR HOME IV ABX PER ID DVT PROPHYLAXIS SSI DIET COMPLIANCE STRESSED
--- NOTE | 2017-10-30 11:07 | PN ---
Progress Note, Physician History of Present Illness: doing well no complaints cx report noted sensitivities noted - Current Medication List Current Medications: Active Medications Aspirin (Asa -) 81 mg PO DAILY [facility] Last Admin: 10/30/17 09:32 Dose: 81 mg Atorvastatin Calcium (Lipitor -) 10 mg PO HS J CARLOS Last Admin: 10/29/17 22:37 Dose: 10 mg Heparin Sodium (Porcine) (Heparin -) 5,000 unit SQ BID [facility] Last Admin: 10/30/17 09:28 Dose: 5,000 unit Ertapenem 1 gm/ Sodium (Chloride) 50 mls @ 50 mls/hr IVPB DAILY [facility]; Protocol Insulin Aspart (Novolog Vial Sliding Scale -) 1 vial SQ ACHS [facility]; Protocol Last Admin: 10/30/17 06:47 Dose: 2 units Insulin Detemir (Levemir Vial) 10 units SQ HS [facility] Last Admin: 10/29/17 22:37 Dose: 10 units Insulin Detemir (Levemir Vial) 29 units SQ ACBK [facility] Last Admin: 10/30/17 06:48 Dose: 29 units Lactulose (Cephulac (Oral Use)) 20 gm PO QID [facility] Last Admin: 10/30/17 09:29 Dose: Not Given Midodrine (Proamatine -) 5 mg PO TID-MID [facility] Last Admin: 10/30/17 09:33 Dose: 5 mg Nadolol (Corgard -) 20 mg PO DAILY [facility] Last Admin: 10/30/17 09:33 Dose: 20 mg Nystatin (Nystop Powder -) 1 applic TP DAILY [facility] Last Admin: 10/30/17 09:39 Dose: 1 applic Oxycodone HCl (Roxicodone -) 5 mg PO Q6H PRN PRN Reason: PAIN LEVEL 4 - 6 Last Admin: 10/28/17 18:42 Dose: 5 mg Ranolazine (Ranexa -) 1,000 mg PO BID [facility] Last Admin: 10/30/17 09:33 Dose: 1,000 mg Sodium Hypochlorite (Dakin's Solution 0.25% (Half-Strength) -) 1 applic TP DAILY [facility] Last Admin: 10/30/17 09:52 Dose: Not Given - Objective Vital Signs: Vital Signs Temperature 98.8 F 10/30/17 06:00 Pulse Rate 68 10/30/17 06:00 Respiratory Rate 20 10/30/17 06:00 Blood Pressure 160/64 10/30/17 06:00 O2 Sat by Pulse Oximetry (%) 100 10/29/17 21:00 Constitutional: Yes: No Distress, Calm Cardiovascular: Yes: Regular Rate and Rhythm Respiratory: Yes: Regular, CTA Bilaterally Gastrointestinal: Yes: Normal Bowel Sounds, Soft Musculoskeletal: Yes: WNL Extremities: Yes: Other Wound/Incision: Yes: Dressing Dry and Intact Neurological: Yes: Alert, Oriented Psychiatric: Yes: Alert, Oriented Labs: CBC, BMP 10/30/17 06:50 10/30/17 06:50 INR, PTT INR 1.08 (0.82-1.09) 10/25/17 14:30 Assessment/Plan Problem List - Problems (1) CKD (chronic kidney disease) Code(s): N18.9 - CHRONIC KIDNEY DISEASE, UNSPECIFIED Qualifiers: Chronic kidney disease stage: unspecified stage Qualified Code(s): N18.9 - Chronic kidney disease, unspecified (2) Cellulitis of toe, left Code(s): L03.032 - CELLULITIS OF LEFT TOE Assessment/Plan Assessment: 57 year old male with pustulant drainage from L lateral wound Plan: 1. L foot diabetic foot ulcer/wound s/p 5th toe amputation 09/30 2. DM II 3. CAD 4. Cirrhosis with portal hypertensive gastropathy, ascites, hepatic encephalopathy 7. Hypotension 8. Thrombocytopenia 9. Hyperlipidemia - Continue Lipitor plan changed abx to ertapenam and ampicillin will need it for couple of weeks will d/e podiatry and give fnal recommendations rest as per the team
[2017-10-30] MEDS: AMPICILLIN - 1 GM in SODIUM CHLORIDE 100 ML IVPB SCH ×3 (12:47→20:09)
[2017-10-30] MEDS: ERTAPENEM SODIUM 1 GM in SODIUM CHLORIDE 50 ML IVPB SCH (12:47)
[2017-10-30] MEDS ORDERED: INSULIN (NOVOLOG) ASPART 100 UNITS/ML 10ML VIAL ONE (22:15)
[2017-10-30] MEDS: ATORVASTATIN CA 10 MG TABLET (FP) PO SCH (22:36)
[2017-10-31] MEDS ORDERED: PT OWN MED DRAWER 7, Y5N ONE ×2 (02:27→21:35)
[2017-10-31] MEDS: AMPICILLIN - 1 GM in SODIUM CHLORIDE 100 ML IVPB SCH ×4 (03:05→21:54)
[2017-10-31] MEDS: oxyCODONE HCL 5 MG TABLET PO PRN ×2 (04:38→22:49)
[2017-10-31] MEDS: INSULIN SLIDING SCALE (NOVOLOG) 1 VIAL SQ SCH ×4 (06:47→21:54)
[2017-10-31] MEDS: INSULIN (LEVEMIR) 100 UNITS/ML UNITS SQ SCH ×2 (06:48→21:54)
[2017-10-31] MEDS ORDERED: RANOLAZINE E.R. 500 MG TABLET (FP) ONE ×2 (09:17→21:35)
[2017-10-31] MEDS: HEPARIN NA (PORCINE) 5,000 UNITS/ML 1ML VIAL SQ SCH ×2 (09:18→21:54)
[2017-10-31] MEDS: LACTULOSE 20 GM/30 ML UDC (FOR ORAL USE ONLY) PO SCH ×4 (09:19→21:54)
[2017-10-31] MEDS: ASPIRIN 81 MG CHEWABLE TABLETS PO SCH (09:19)
[2017-10-31] MEDS: SODIUM HYPOCHLORITE 0.25%- 473 ML BULK BOTTLE TP SCH (09:20)
[2017-10-31] MEDS: NYSTATIN POWDER 100,000 UNITS/GM - 15 GM TOPICAL POWDER TP SCH (09:21)
[2017-10-31] MEDS: NADOLOL 20 MG TABLET (FP) PO SCH (09:21)
[2017-10-31] MEDS: MIDODRINE HCL 5 MG TABLET PO SCH ×3 (09:21→17:15)
[2017-10-31] MEDS: RANOLAZINE E.R. 1,000 MG TABLET (FP) PO SCH ×2 (09:22→21:55)
[2017-10-31] MEDS: ERTAPENEM SODIUM 1 GM in SODIUM CHLORIDE 50 ML IVPB SCH (10:13)
--- NOTE | 2017-10-31 11:21 | PN ---
Progress Note, Physician History of Present Illness: patient stable doing well - Current Medication List Current Medications: Active Medications Aspirin (Asa -) 81 mg PO DAILY [facility] Last Admin: 10/31/17 09:19 Dose: 81 mg Atorvastatin Calcium (Lipitor -) 10 mg PO HS [facility] Last Admin: 10/30/17 22:36 Dose: 10 mg Heparin Sodium (Porcine) (Heparin -) 5,000 unit SQ BID [facility] Last Admin: 10/31/17 09:18 Dose: 5,000 unit Ertapenem 1 gm/ Sodium (Chloride) 50 mls @ 50 mls/hr IVPB DAILY [facility]; Protocol Last Admin: 10/31/17 10:13 Dose: 50 mls/hr Ampicillin Sodium 1 gm/ Sodium (Chloride) 100 mls @ 200 mls/hr IVPB Q6H-IV [facility] ; Protocol Last Admin: 10/31/17 09:05 Dose: 200 mls/hr Insulin Aspart (Novolog Vial Sliding Scale -) 1 vial SQ ACHS [facility]; Protocol Last Admin: 10/31/17 06:47 Dose: Not Given Insulin Detemir (Levemir Vial) 10 units SQ HS [facility] Last Admin: 10/30/17 22:40 Dose: 10 units Insulin Detemir (Levemir Vial) 29 units SQ ACBK [facility] Last Admin: 10/31/17 06:48 Dose: 29 units Lactulose (Cephulac (Oral Use)) 20 gm PO QID [facility] Last Admin: 10/31/17 09:19 Dose: Not Given Midodrine (Proamatine -) 5 mg PO TID-MID [facility] Last Admin: 10/31/17 09:21 Dose: 5 mg Nadolol (Corgard -) 20 mg PO DAILY [facility] Last Admin: 10/31/17 09:21 Dose: 20 mg Nystatin (Nystop Powder -) 1 applic TP DAILY [facility] Last Admin: 10/31/17 09:21 Dose: 1 applic Oxycodone HCl (Roxicodone -) 5 mg PO Q6H PRN PRN Reason: PAIN LEVEL 4 - 6 Last Admin: 10/31/17 04:38 Dose: 5 mg Ranolazine (Ranexa -) 1,000 mg PO BID [facility] Last Admin: 10/31/17 09:22 Dose: 1,000 mg Sodium Hypochlorite (Dakin's Solution 0.25% (Half-Strength) -) 1 applic TP DAILY [facility] Last Admin: 10/31/17 09:20 Dose: 1 applic - Objective Vital Signs: Vital Signs Temperature 98.6 F 10/31/17 08:53 Pulse Rate 55 L 10/31/17 08:53 Respiratory Rate 20 10/31/17 08:53 Blood Pressure 116/55 10/31/17 08:53 O2 Sat by Pulse Oximetry (%) 98 10/30/17 21:00 Constitutional: Yes: No Distress, Calm Cardiovascular: Yes: Regular Rate and Rhythm Respiratory: Yes: Regular, CTA Bilaterally Gastrointestinal: Yes: Normal Bowel Sounds, Soft Musculoskeletal: Yes: WNL Extremities: Yes: Other Wound/Incision: Yes: Dressing Dry and Intact Neurological: Yes: Alert, Oriented Psychiatric: Yes: Alert, Oriented Labs: CBC, BMP 10/30/17 06:50 10/30/17 06:50 INR, PTT INR 1.08 (0.82-1.09) 10/25/17 14:30 Assessment/Plan Problem List - Problems (1) CKD (chronic kidney disease) Code(s): N18.9 - CHRONIC KIDNEY DISEASE, UNSPECIFIED Qualifiers: Chronic kidney disease stage: unspecified stage Qualified Code(s): N18.9 - Chronic kidney disease, unspecified (2) Cellulitis of toe, left Code(s): L03.032 - CELLULITIS OF LEFT TOE Assessment/Plan Assessment: 57 year old male with pustulant drainage from L lateral wound Plan: 1. L foot diabetic foot ulcer/wound s/p 5th toe amputation 09/30 2. DM II 3. CAD 4. Cirrhosis with portal hypertensive gastropathy, ascites, hepatic encephalopathy 7. Hypotension 8. Thrombocytopenia 9. Hyperlipidemia - Continue Lipitor plan changed abx to ertapenam and ampicillin will need it for couple of weeks will d/w podiatry and give final recommendations rest as per the team
--- NOTE | 2017-10-31 12:05 | DS ---
Physical Examination Vital Signs: Vital Signs Temperature 98.6 F 10/31/17 08:53 Pulse Rate 55 L 10/31/17 08:53 Respiratory Rate 20 10/31/17 08:53 Blood Pressure 116/55 10/31/17 08:53 O2 Sat by Pulse Oximetry (%) 98 10/30/17 21:00 Constitutional: Yes: Well Nourished, No Distress, Calm Cardiovascular: Yes: Regular Rate and Rhythm Respiratory: Yes: Regular Gastrointestinal: Yes: Normal Bowel Sounds, Soft Wound/Incision: Yes: Dressing Dry and Intact Neurological: Yes: Alert, Oriented Psychiatric: Yes: Alert, Oriented Labs: CBC, BMP 10/30/17 06:50 10/30/17 06:50 Discharge Summary Reason For Visit: PORTAL HYPERTENSION WITH ESOPHAGAL/DM Current Active Problems CAD (coronary artery disease) (Acute) CKD (chronic kidney disease) (Acute) Type 2 diabetes mellitus with diabetic neuropathy, unspecified (Acute) Hospital Course: This is a 57 year old male with phx of anemia, HCC, hepatic encephalopathy ( patient is on a liver transplant list), hypertension, hyperlipidemia, CVA, IDDM , gastritis, esophageal varices, L foot wound currently on IV abx via PICC line , presenting from wound care visit today. Wound care was displeased with the healing of the wound, would like debridement tomorrow. Pt had debridement done by Dr Aguirre Microbiology 10/27/17 11:00 Bone Gram Stain - Final 10/27/17 11:00 Bone Tissue Culture - Final Enterobacter Cloacae Enterococcus Faecalis 10/27/17 11:00 Tissue-Other Gram Stain - Final 10/27/17 11:00 Tissue-Other Tissue Culture - Final Enterobacter Cloacae Enterococcus Faecalis 10/25/17 17:31 Foot - Left Wound Culture - Final Kluyvera Ascorbata Mr S Aureus Condition: Stable - Instructions Diet, Activity, Other Instructions: Ampicillin 1 gm IVPB Q6h for 4 weeks Ertapenam 1 gm IVPB daily for 5 weeks Please do not dissolve antibiotics with D5W, mix only with Alina Saline Referrals: Jg Flores MD [Primary Care Provider] - Beka Aguirre MD [Staff Physician] - Disposition: [facility] F[facility] - Home Medications Comprehensive Discharge Medication List: Ambulatory Orders Multivitamins [Multivit ([facility] Formulary)] 1 tab PO DAILY 07/15/16 Aspirin [ASA -] 81 mg PO DAILY tab.chew 10/30/16 Atorvastatin Ca [Lipitor] 10 mg PO HS #30 tab 12/11/16 Pantoprazole Sodium [Protonix] 40 mg PO DAILY #30 tab 12/11/16 Ranolazine [Ranexa] 1,000 mg PO Q12H 09/30/17 Acetaminophen [Tylenol .Regular Strength -] 650 mg PO Q4H PRN tablet 10/11/17 Heparin - 5,000 unit SQ BID vial 10/11/17 Insulin (Levemir) [Levemir Vial] 10 units SQ HS units 10/11/17 Insulin (Levemir) [Levemir Vial] 29 units SQ AM units 10/11/17 Insulin Sliding Scale [Novolog Vial Sliding Scale -] 1 vial SQ ACHS units 10/11 Lactobacillus Acidophilus [Bacid -] 1 tab PO BID tab 10/11/17 Lactulose (Oral Use) [Cephulac -] 20 gm PO QID udc 10/11/17 Midodrine HCl [Proamatine -] 5 mg PO TID-MID tablet 10/11/17 Nadolol 20 mg PO DAILY #30 tab 10/11/17 Nystatin Powder [Nystop Powder -] 1 applic TP DAILY applic 10/11/17 Ampicillin - 1 gm IVPB Q6H-IV vial 10/31/17 Ertapenem Sodium - 1 Gram [Invanz (Pre-Docked)] 1 gm IVPB DAILY #1 bag 10/31/17 Heparin - 5,000 unit SQ BID vial 10/31/17 Sodium Hypochlorite [Dakin's Solution 0.25% (Half-Strength) -] 1 applic TP DAILY ml 10/31/17 oxyCODONE HCL [Roxicodone -] 5 mg PO Q6H PRN tablet MDD 4 10/31/17
--- NOTE | 2017-10-31 13:21 | PATH ---
Surgical Pathology Report Patient Name: JAYSON STRAUSS [facility]. Rec. #: [id number] /Age/Gender: 1960 (Age: 57) / M Account: [id number] Location: [address] [place] [address]/[facility] Taken: 10/27/2017 Received: 10/27/2017 Reported: 10/31/2017 Physicians: SYDNEY Servin M.D. Specimen(s) Received BONE 5TH METATARSAL LEFT FOOT Clinical History Ulcer left foot Final Diagnosis Bone, foot, Fifth Metatarsal, left, biopsy: BOne with acute AND CHRONIC inflammation, granulation tissue, and MILD TO MODERATE acute osteomyelitis. Electronically Signed Chrissie Cassidy M.D. Gross Description Received in formalin labeled "bone fifth metatarsal left foot" is a segment of bone with attached soft tissue measuring 3 x 1.8 x 1.2 cm. Focal areas of hemorrhage are noted in one end. Specimen is entirely submitted after brief decalcification. PIETRO/10/27/2017 narendra/10/27/2017
[2017-10-31] MEDS: ATORVASTATIN CA 10 MG TABLET (FP) PO SCH (21:54)
[2017-11-01] MEDS ORDERED: PT OWN MED DRAWER 7, Y5N ONE ×3 (01:34→14:35)
[2017-11-01] MEDS: AMPICILLIN - 1 GM in SODIUM CHLORIDE 100 ML IVPB SCH ×3 (02:25→15:22)
[2017-11-01] MEDS: INSULIN (LEVEMIR) 100 UNITS/ML UNITS SQ SCH (06:33)
[2017-11-01] MEDS: INSULIN SLIDING SCALE (NOVOLOG) 1 VIAL SQ SCH ×2 (06:34→11:39)
--- NOTE | 2017-11-01 08:44 | PN ---
Progress Note, Physician Chief Complaint: Necrosis of Diabetic Foot Ulcer History of Present Illness: NAD Sitting at the edge of the bed at bedside D/C home today with VNS, Laurie to provide IV Ertapenam 1 gm to be given once a day for 5 days [facility] to Provide Wound Vac - Current Medication List Current Medications: Active Medications Aspirin (Asa -) 81 mg PO DAILY [facility] Last Admin: 10/31/17 09:19 Dose: 81 mg Atorvastatin Calcium (Lipitor -) 10 mg PO HS [facility] Last Admin: 10/31/17 21:54 Dose: 10 mg Heparin Sodium (Porcine) (Heparin -) 5,000 unit SQ BID J [facility] Last Admin: 10/31/17 21:54 Dose: 5,000 unit Ertapenem 1 gm/ Sodium (Chloride) 50 mls @ 50 mls/hr IVPB DAILY [facility]; Protocol Last Admin: 10/31/17 10:13 Dose: 50 mls/hr Ampicillin Sodium 1 gm/ Sodium (Chloride) 100 mls @ 200 mls/hr IVPB Q6H-IV [facility] ; Protocol Last Admin: 11/01/17 02:25 Dose: 200 mls/hr Insulin Aspart (Novolog Vial Sliding Scale -) 1 vial SQ ACHS [facility]; Protocol Last Admin: 11/01/17 06:34 Dose: Not Given Insulin Detemir (Levemir Vial) 10 units SQ HS [facility] Last Admin: 10/31/17 21:54 Dose: 10 units Insulin Detemir (Levemir Vial) 29 units SQ ACBK [facility] Last Admin: 11/01/17 06:33 Dose: 29 units Lactulose (Cephulac (Oral Use)) 20 gm PO QID [facility] Last Admin: 10/31/17 21:54 Dose: Not Given Midodrine (Proamatine -) 5 mg PO TID-MID [facility] Last Admin: 10/31/17 17:15 Dose: 5 mg Nadolol (Corgard -) 20 mg PO DAILY [facility] Last Admin: 10/31/17 09:21 Dose: 20 mg Nystatin (Nystop Powder -) 1 applic TP DAILY [facility] Last Admin: 10/31/17 09:21 Dose: 1 applic Oxycodone HCl (Roxicodone -) 5 mg PO Q6H PRN PRN Reason: PAIN LEVEL 4 - 6 Last Admin: 10/31/17 22:49 Dose: 5 mg Ranolazine (Ranexa -) 1,000 mg PO BID [facility] Last Admin: 10/31/17 21:55 Dose: 1,000 mg Sodium Hypochlorite (Dakin's Solution 0.25% (Half-Strength) -) 1 applic TP DAILY [facility] Last Admin: 10/31/17 09:20 Dose: 1 applic - Objective Vital Signs: Vital Signs Temperature 98.9 F 11/01/17 05:31 Pulse Rate 60 11/01/17 05:31 Respiratory Rate 21 11/01/17 05:31 Blood Pressure 114/61 11/01/17 05:31 O2 Sat by Pulse Oximetry (%) 98 10/31/17 21:00 Constitutional: Yes: Well Nourished, No Distress, Calm Cardiovascular: Yes: Regular Rate and Rhythm Respiratory: Yes: Regular Gastrointestinal: Yes: Normal Bowel Sounds, Soft Wound/Incision: Yes: Dressing Dry and Intact Neurological: Yes: Alert, Oriented Psychiatric: Yes: Alert, Oriented Labs: CBC, BMP 10/30/17 06:50 10/30/17 06:50 INR, PTT INR 1.08 (0.82-1.09) 10/25/17 14:30 Problem List - Problems (1) CKD (chronic kidney disease) Assessment/Plan: -Cr at baseline -Monitor trend Code(s): N18.9 - CHRONIC KIDNEY DISEASE, UNSPECIFIED Qualifiers: Chronic kidney disease stage: unspecified stage Qualified Code(s): N18.9 - Chronic kidney disease, unspecified (2) Type 2 diabetes mellitus with diabetic neuropathy, unspecified Assessment/Plan: -BGM ACHS -Insulin coverage -Levemir BID -Diabetic diet -Last A1c at 5.6 Code(s): E11.40 - TYPE 2 DIABETES MELLITUS WITH DIABETIC NEUROPATHY, UNSP Qualifiers: 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: with intermediate school teacher use Qualified Code( s): E11.40 - Type 2 diabetes mellitus with diabetic neuropathy, unspecified; Z79.4 - 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 (3) Anemia Assessment/Plan: -Anemia of chronic disease and Bleeding esophagea varices -EGD last admission by Dr Nash, varices stabilized -On Nadolol for esophageal varices -stable -monitor trend Code(s): D64.9 - ANEMIA, UNSPECIFIED (4) Cellulitis of toe, left Assessment/Plan: -Seen by podiatry -ID consult appreciated -IV ertapenam with ampicillin 1 gm Q6H for 4 weeks -Oxycodone 5 mg Q6H PRN for pain Code(s): L03.032 - CELLULITIS OF LEFT TOE (5) Hepatic encephalopathy Assessment/Plan: -On Lactulose -Please titrate lactulose until 4 BM/day are achieved Code(s): K72.90 - HEPATIC FAILURE, UNSPECIFIED WITHOUT COMA (6) CAD (coronary artery disease) Assessment/Plan: -Aspirin 81 mg po daily -Atorvastatin 10 mg po HS Code(s): I25.10 - ATHSCL HEART DISEASE OF [place] CORONARY ARTERY W/O ANG PCTRS Assessment/Plan see problem list
[2017-11-01] MEDS ORDERED: RANOLAZINE E.R. 500 MG TABLET (FP) ONE (09:46)
[2017-11-01 09:57] VITALS: BP 139/69; PULSE 55; TEMP 98.5
[2017-11-01] MEDS: ERTAPENEM SODIUM 1 GM in SODIUM CHLORIDE 50 ML IVPB SCH (09:58)
[2017-11-01] MEDS: LACTULOSE 20 GM/30 ML UDC (FOR ORAL USE ONLY) PO SCH ×2 (09:59→15:22)
[2017-11-01] MEDS: ASPIRIN 81 MG CHEWABLE TABLETS PO SCH (09:59)
[2017-11-01] MEDS: MIDODRINE HCL 5 MG TABLET PO SCH ×2 (10:00→15:22)
[2017-11-01] MEDS: NADOLOL 20 MG TABLET (FP) PO SCH (10:00)
[2017-11-01] MEDS: RANOLAZINE E.R. 1,000 MG TABLET (FP) PO SCH (10:01)
[2017-11-01] MEDS: HEPARIN NA (PORCINE) 5,000 UNITS/ML 1ML VIAL SQ SCH (10:01)
[2017-11-01] MEDS: NYSTATIN POWDER 100,000 UNITS/GM - 15 GM TOPICAL POWDER TP SCH (10:02)
[2017-11-01] MEDS ORDERED: INSULIN (NOVOLOG) ASPART 100 UNITS/ML 10ML VIAL ONE (10:16)
--- NOTE | 2017-11-01 15:21 | PN ---
Progress Note, Physician History of Present Illness: doing well no issues wound looked at with podiatry clean - Current Medication List Current Medications: Active Medications Aspirin (Asa -) 81 mg PO DAILY [facility] Last Admin: 11/01/17 09:59 Dose: 81 mg Atorvastatin Calcium (Lipitor -) 10 mg PO HS J [facility] Last Admin: 10/31/17 21:54 Dose: 10 mg Heparin Sodium (Porcine) (Heparin -) 5,000 unit SQ BID J [facility] Last Admin: 11/01/17 10:01 Dose: 5,000 unit Ertapenem 1 gm/ Sodium (Chloride) 50 mls @ 50 mls/hr IVPB DAILY [facility]; Protocol Last Admin: 11/01/17 09:58 Dose: 50 mls/hr Ampicillin Sodium 1 gm/ Sodium (Chloride) 100 mls @ 200 mls/hr IVPB Q6H-IV [facility] ; Protocol Last Admin: 11/01/17 09:58 Dose: 200 mls/hr Insulin Aspart (Novolog Vial Sliding Scale -) 1 vial SQ ACHS [facility]; Protocol Last Admin: 11/01/17 11:39 Dose: 2 units Insulin Detemir (Levemir Vial) 10 units SQ HS [facility] Last Admin: 10/31/17 21:54 Dose: 10 units Insulin Detemir (Levemir Vial) 29 units SQ ACBK [facility] Last Admin: 11/01/17 06:33 Dose: 29 units Lactulose (Cephulac (Oral Use)) 20 gm PO QID [facility] Last Admin: 11/01/17 09:59 Dose: Not Given Midodrine (Proamatine -) 5 mg PO TID-MID [facility] Last Admin: 11/01/17 10:00 Dose: 5 mg Nadolol (Corgard -) 20 mg PO DAILY [facility] Last Admin: 11/01/17 10:00 Dose: 20 mg Nystatin (Nystop Powder -) 1 applic TP DAILY [facility] Last Admin: 11/01/17 10:02 Dose: Not Given Ranolazine (Ranexa -) 1,000 mg PO BID [facility] Last Admin: 11/01/17 10:01 Dose: 1,000 mg Sodium Hypochlorite (Dakin's Solution 0.25% (Half-Strength) -) 1 applic TP DAILY [facility] Last Admin: 10/31/17 09:20 Dose: 1 applic - Objective Vital Signs: Vital Signs Temperature 98.5 F 11/01/17 09:56 Pulse Rate 55 L 11/01/17 09:56 Respiratory Rate 18 11/01/17 09:56 Blood Pressure 139/69 11/01/17 09:56 O2 Sat by Pulse Oximetry (%) 98 10/31/17 21:00 Constitutional: Yes: No Distress, Calm Cardiovascular: Yes: Regular Rate and Rhythm Respiratory: Yes: Regular, CTA Bilaterally Gastrointestinal: Yes: Normal Bowel Sounds, Soft Musculoskeletal: Yes: WNL Extremities: Yes: Other Integumentary: Yes: Other Wound/Incision: Yes: Clean/Dry Neurological: Yes: Alert, Oriented Psychiatric: Yes: Alert, Oriented Labs: CBC, BMP 10/30/17 06:50 10/30/17 06:50 INR, PTT INR 1.08 (0.82-1.09) 10/25/17 14:30 Assessment/Plan Problem List - Problems (1) CKD (chronic kidney disease) Code(s): N18.9 - CHRONIC KIDNEY DISEASE, UNSPECIFIED Qualifiers: Chronic kidney disease stage: unspecified stage Qualified Code(s): N18.9 - Chronic kidney disease, unspecified (2) Cellulitis of toe, left Code(s): L03.032 - CELLULITIS OF LEFT TOE Assessment/Plan Assessment: 57 year old male with pustulant drainage from L lateral wound Plan: 1. L foot diabetic foot ulcer/wound s/p 5th toe amputation 09/30 2. DM II 3. CAD 4. Cirrhosis with portal hypertensive gastropathy, ascites, hepatic encephalopathy 7. Hypotension 8. Thrombocytopenia 9. Hyperlipidemia - Continue Lipitor plan continue current abx wound vac rest continue current mgmt wound care plan is for wound vac
[2017-11-01] MEDS: SODIUM HYPOCHLORITE 0.25%- 473 ML BULK BOTTLE TP SCH (15:22)
--- NOTE | 2017-11-01 15:32 | PN ---
Progress Note (short form) - Note Progress Note: Podiatry F/U: Seen/evaluated at bedside with , NAD. Pain controlled, denies F/V/N/C/SOB/ CP. Afebrile, VSS. Going home today with services. GEORGE: L foot: post-surgical fifth ray diabetic ulcer with mixed fibrogranular base, regular borders, no probing to bone, no purulence, no fluctuance, mild periwound erythema, no streaking cellulitis, no signs of active infection. No gangrenous changes. L foot bone path: acute/chronic osteomyelitis Imp: 57 year old IDDM M s/p L fifth ray resection and debridement for DFU and osteomyelitis 1. IV abx per ID. Per ID PICC line + ertapenem 2. Home nursing services for wound vac. 125 mmHg continuous changed 3x/week. 3. Patient instructed to minimize weightbearing activity and only use surgical offloading shoe. 4. Appropriate glycemic management discussed. 5. Upon discharge, will f/u with me in wound healing center 11/08/17. [phone] Angel Aguirre DPM
== END 2017-11-01 16:52 | disposition home or self-care (01) | DRG 464 ==
LOC: JER 14:11 → JERBED 17:07 → J6S 21:30
PROVIDERS: ADMIT Internal Medicine; ATTEND Family Medicine
PROC: 0JBR0ZZ Excision of Left Foot Subcutaneous Tissue and Fascia, Open Approach (ICD-10-PCS; 2017-10-27)
PROC: 0QBP0ZZ Excision of Left Metatarsal, Open Approach (ICD-10-PCS; principal; 2017-10-27 10:30)
DX: T87.54 Necrosis of amputation stump, left lower extremity (principal); M86.172 Other acute osteomyelitis, left ankle and foot; R18.8 Other ascites; K76.6 Portal hypertension; M86.672 Other chronic osteomyelitis, left ankle and foot; E11.69 Type 2 diabetes mellitus with other specified complication; E11.621 Type 2 diabetes mellitus with foot ulcer; L97.529 Non-pressure chronic ulcer of other part of left foot with unspecified severity; I25.10 Atherosclerotic heart disease of native coronary artery without angina pectoris; L03.032 Cellulitis of left toe; K74.60 Unspecified cirrhosis of liver; K31.89 Other diseases of stomach and duodenum; K72.90 Hepatic failure, unspecified without coma; I95.9 Hypotension, unspecified; D69.6 Thrombocytopenia, unspecified; E78.5 Hyperlipidemia, unspecified; N18.9 Chronic kidney disease, unspecified; D64.9 Anemia, unspecified; E11.40 Type 2 diabetes mellitus with diabetic neuropathy, unspecified; I12.9 Hypertensive chronic kidney disease with stage 1 through stage 4 chronic kidney disease, or unspecified chronic kidney disease; E11.22 Type 2 diabetes mellitus with diabetic chronic kidney disease
CPT/HCPCS: 11042; 36415; 71046-TC-FY; 80048; 80053; 81003; 81015; 82550; 82728; 82746; 82962; 83036; 83540; 83550; 84484; 85025; 85027; 85610; 85730; 86850; 86900; 86901; 87040; 87070; 87075; 87186; 87205; 88305-TC; 88311-TC; 93005; 93010; 94760; 99283-25; J1644

== ENCOUNTER 2017-11-18 06:28 | Day surgery (SDC) | payer MEDICARE ==
[2017-11-17 15:52] VITALS: BMI 35.9
[~2017-11-18 06:28] MED LIST: methylPREDNISolone NA SUCC 40 MG/1 ML VIAL IVPUSH ONE
[2017-11-18] MEDS ORDERED: LIDOCAINE HCL 1%, 10 MG/ML (20ML VIAL) ONE (07:15)
[2017-11-18] MEDS ORDERED: HEPARIN NA (PORCINE) 5,000 UNITS/ML 1ML VIAL ONE ×2 (07:15→07:57)
[2017-11-18] MEDS ORDERED: MIDAZOLAM HCL 2 MG/2 ML SINGLE DOSE VIAL ONE (07:27)
[2017-11-18] MEDS ORDERED: methylPREDNISolone NA SUCC 40 MG/1 ML VIAL ONE (07:43)
[2017-11-18] MEDS ORDERED: methylPREDNISolone NA SUCC 40 MG/1 ML VIAL IVPUSH ONE (07:50)
[2017-11-18] MEDS ORDERED: ceFAZolin SODIUM 1 GM VIAL ONE (08:04)
[2017-11-18] MEDS ORDERED: ceFAZolin SODIUM 1 GM VIAL IVPB ONE (08:05)
[2017-11-18] MEDS ORDERED: LIDOCAINE HCL 1%, 10 MG/ML (20ML VIAL) NR ONE (08:11)
--- NOTE | 2017-11-18 08:49 | HP ---
Admitting History and Physical - Admission Chief Complaint: non healing ulcer of left foot. 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 Cardiovascular: Yes: CAD, HTN, Hyperlipdemia Gastrointestinal: Yes: Ascites, Esophageal Varices, Gastritis, GI Bleed, Hemorrhoids, Other Hepatobiliary: Yes: Cirrhosis (h/o esophageal varices s/p banding, related to HERNANDEZ), Cholelithiasis (s/p lap choly), Other (PORTAL VEIN PARTIAL THROMBOSIS, HCC treated with transhepatic heat ablations at [facility]) Renal/: Yes: Renal Inusuff Heme/Onc: Yes: Anemia, Thrombocytopenia Endocrine: Yes: Diabetes Mellitus - Past Surgical History Past Surgical History: Yes: Amputation (left toe #4, right toes #2,3), Cholecystectomy, Colonoscopy, Hernia Repair, Upper Endoscopy - Smoking History Smoking history: Never smoked Have you smoked in the past 12 months: No Aproximately how many cigarettes per day: 0 - Alcohol/Substance Use Hx Alcohol Use: No History of Substance Use: reports: None - Social History ADL: Independent 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 [employer] History of Recent Travel: No Home Medications - Allergies Allergies/Adverse Reactions: Allergies Allergy/AdvReac Type Severity Reaction Status Date / Time Iodinated Contrast- Oral and Allergy Verified 11/17/17 08:36 IV Dye [Iodinated Contrast Media - IV Dye] - Home Medications Home Medications: Ambulatory Orders Multivitamins [Multivit ([facility] Formulary)] 1 tab PO DAILY 07/15/16 Aspirin [ASA -] 81 mg PO DAILY tab.chew 10/30/16 Atorvastatin Ca [Lipitor] 10 mg PO HS #30 tab 12/11/16 Pantoprazole Sodium [Protonix] 40 mg PO DAILY #30 tab 12/11/16 Ranolazine [Ranexa] 1,000 mg PO Q12H 09/30/17 Acetaminophen [Tylenol .Regular Strength -] 650 mg PO Q4H PRN tablet 10/11/17 Insulin (Levemir) [Levemir Vial] 10 units SQ HS units 10/11/17 Insulin (Levemir) [Levemir Vial] 29 units SQ AM units 10/11/17 Lactobacillus Acidophilus [Bacid -] 1 tab PO BID tab 10/11/17 Midodrine HCl [Proamatine -] 5 mg PO TID-MID tablet 10/11/17 Nystatin Powder [Nystop Powder -] 1 applic TP DAILY applic 10/11/17 Ertapenem Sodium - 1 Gram [Invanz (Pre-Docked)] 1 gm IVPB DAILY #1 bag 10/31/17 oxyCODONE HCL [Roxicodone -] 5 mg PO Q6H PRN tablet MDD 4 10/31/17 Ampicillin Trihydrate 1 g PO Q6H #120 capsule 11/01/17 Lactulose (Oral Use) [Cephulac -] 20 gm PO QID #3600 ml 11/01/17 Lisinopril 20 mg PO DAILY 11/17/17 Nadolol 20 mg PO DAILY 11/17/17 Prednisone [Prednisone 50 MG TABLETS] 50 mg PO TID #7 tablet 11/17/17 Insulin Sliding Scale [Novolog Vial Sliding Scale -] 20 unit SQ ACHS 11/18/17 Family Disease History - Family Disease History Family Disease History: Diabetes: Brother (alcoholic cirrhosis), Sister, CA: Mother (breast Ca), Other: Father ( from alcohol related complications) Review of Systems - Review of Systems Constitutional: reports: No Symptoms Eyes: reports: No Symptoms HENT: reports: No Symptoms Neck: reports: No Symptoms Cardiovascular: reports: No Symptoms Respiratory: reports: No Symptoms Gastrointestinal: reports: No Symptoms Genitourinary: reports: No Symptoms Breasts: reports: No Symptoms Reported Musculoskeletal: reports: No Symptoms Integumentary: reports: No Symptoms Neurological: reports: No Symptoms Endocrine: reports: No Symptoms Hematology/Lymphatic: reports: No Symptoms Psychiatric: reports: No Symptoms Physical Examination Vital Signs: Vital Signs Temperature 97.7 F 11/18/17 07:33 Pulse Rate 78 11/18/17 07:33 Respiratory Rate 20 11/18/17 07:33 Blood Pressure 126/74 11/18/17 07:33 O2 Sat by Pulse Oximetry (%) 97 11/18/17 07:38 Constitutional: Yes: Well Nourished, No Distress, Calm Eyes: Yes: WNL, Conjunctiva Clear, EOM Intact HENT: Yes: WNL, Atraumatic, Normocephalic Neck: Yes: WNL, Supple, Trachea Midline Cardiovascular: Yes: WNL, Regular Rate and Rhythm Respiratory: Yes: WNL, Regular, CTA Bilaterally Gastrointestinal: Yes: WNL, Normal Bowel Sounds Musculoskeletal: Yes: WNL Extremities: Yes: WNL Edema: No Integumentary: Yes: WNL Neurological: Yes: WNL, Alert, Oriented ...Motor Strength: WNL Psychiatric: Yes: WNL Problem List - Problems (1) Atherosclerotic PVD with ulceration Code(s): I70.209 - UNSP ATHSCL [facility] [facility] ARTERIES OF EXTREMITIES, UNSP EXTREMITY; L98.499 - NON-PRESSURE CHRONIC ULCER OF SKIN OF SITES W UNSP SEVERITY Assessment/Plan Non healing ulcer left foot 1. For angiogram today.
--- NOTE | 2017-11-18 08:51 | OP ---
Operative Note - Note: Operative Date: 11/18/17 Pre-Operative Diagnosis: non healing ulcer left foot Operation: Aortogram, LLE angiogram, TP trunk atherectomy with DCB angioplasty Post-Operative Diagnosis: Same as Pre-op Surgeon: Neil Gasca Anesthesia: Fractional Estimated Blood Loss (mls): 50 Operative Report Dictated: Yes
[2017-11-18] MEDS ORDERED: oxyCODONE HCL 5 MG TABLET PO PRN (08:52)
[2017-11-18] MEDS ORDERED: ONDANSETRON 4 MG/2 ML VIAL IVPUSH PRN (08:52)
[2017-11-18] MEDS ORDERED: LACTATED RINGERS SOLUTION 1,000 ML IV SCH (09:00)
--- NOTE | 2017-11-18 09:47 | OP ---
DATE OF OPERATION: 11/18/2017 PREOPERATIVE DIAGNOSIS: Non-healing left foot ulcer. POSTOPERATIVE DIAGNOSIS: Non-healing left foot ulcer. PROCEDURE PERFORMED: Aortogram, left lower extremity angiogram, tibioperoneal trunk atherectomy with drug-coated balloon angioplasty. SURGEON: Neil Gross DO ANESTHESIA: Fractional. BLOOD LOSS: 50 mL. INDICATIONS: The patient is a 57-year-old male who has a non-healing left foot ulcer. Preoperative ultrasound showed that he has a TP trunk lesion measuring about 70%, and it was decided that he would need an angiogram. DESCRIPTION OF PROCEDURE: The patient was consented for the procedure, understanding all risks, benefits and alternatives. He was then taken to the operating room. Once in the operating room, the patient was laid on the operating table in the supine manner. The areas of the left and left groin were prepped and draped in a sterile surgical manner. We then injected 10 mL of lidocaine 1% over the right common femoral artery. We then took our Micropuncture needle and punctured the right common femoral artery. Micropuncture wire was inserted. Micropuncture sheath was inserted, and an additional 5-[place]orese sheath was inserted. A 0.035 floppy guidewire was inserted into the aorta, followed by an Omni Flush catheter. We then shot an aortogram via hand injection, showing that aorta and iliac arteries were without any disease. We then went up and over using an 0.035 floppy guidewire and placed the Omni Flush catheter in the left common femoral artery. We then shot an angiogram of the left lower extremity, showing that the common femoral artery, the profunda and the SFA were all patent. The popliteal artery was patent. The TP trunk had 2 lesions, measuring about 70%. The patient has 2-vessel runoff, PT and DP, into the foot. At this point we placed a 0.035 stiff guidewire down into the SFA. We removed our Omni Flush catheter. We placed a 6 x 45 crossover sheath. Then 5000 units of IV heparin was administered to the patient. We then selectively crossed our lesion using an 0.035 stiff guidewire and placed the wire down into the perineal artery. We then placed a Quick-Cross catheter and exchanged the wire for a ViperWire. We then went ahead and used I orbital atherectomy and performed orbital atherectomy on low and medium for both lesions, with multiple passes. Completion angiogram now showed that the vessels were patent and the runoff was still patent. At this point we went ahead and used a 4 x 6 drug-coated Lutonix balloon and performed drug-coated balloon angioplasty of the area. We kept the balloon up for 2 minutes. Completion angiogram then showed that the vessels were patent and of good caliber. We then shot a completion angiogram showing that there was good brisk flow all the way into the foot, with 2-vessel runoff. At this point we brought our sheath up and over. A StarClose device was successfully deployed in the right common femoral artery. Pressure was held for 5 minutes. Afterwards there was no more bleeding. The area was wet and dried, and Dermabond was placed. The patient tolerated the procedure with no complication. The patient was transferred to the PACU in stable condition. NEIL GROSS DO [id number]
[2017-11-18 15:41] VITALS: TEMP 97.5
[2017-11-18 15:42] VITALS: BP 105/56; PULSE 61
== END 2017-11-18 11:20 | disposition home or self-care (01) ==
LOC: JASU-SURG 06:28
PROVIDERS: ATTEND Surgery Vascular Surgery
PROC: 047U3Z1 Dilation of Left Peroneal Artery using Drug-Coated Balloon, Percutaneous Approach (ICD-10-PCS; principal; 2017-11-18 07:30)
DX: E11.621 Type 2 diabetes mellitus with foot ulcer (principal); I70.245 Atherosclerosis of native arteries of left leg with ulceration of other part of foot; L97.529 Non-pressure chronic ulcer of other part of left foot with unspecified severity; I10 Essential (primary) hypertension; K72.90 Hepatic failure, unspecified without coma; D64.9 Anemia, unspecified; Z79.4 Long term (current) use of insulin
CPT/HCPCS: 37229; C2623; 76000-TC-FY; 82962; 94760; J1644

== ENCOUNTER → 2017-11-22 | Day surgery (SDC) | payer MEDICARE ==
[2017-11-22 08:14] LABS: BASO % 0.4 % (0-2.0); EOS % 4.4 % (0-4.5); HEMATOCRIT 24.6 % (35.4-49); HEMOGLOBIN 8.3 GM/dL (11.7-16.9); MCH 31.1 pg (25.7-33.7); MCHC 33.7 g/dl (32.0-35.9); MEAN CELL VOLUME 92.2 fl (80-96); MONO % 9.4 % (3.8-10.2); NEUT % 73.8 % (42.8-82.8); PLATELET COUNT 116 K/MM3 (134-434); RBC 2.67 M/mm3 (4.00-5.60); RDW 16.5 % (11.9-15.9); WHITE BLOOD COUNT 4.7 K/mm3 (4.0-10.0)
[2017-11-22 08:43] LABS: INR 1.15 (0.82-1.09)
[2017-11-22 09:18] LABS: ANISOCYTOSIS 2+; MACROCYTOSIS 0; PLATELET ESTIMATE DECREASED
== END | disposition home or self-care (01) ==
LOC: JRADIR 07:31
PROVIDERS: ATTEND Surgery Vascular Surgery
PROC: 0W9G3ZX Drainage of Peritoneal Cavity, Percutaneous Approach, Diagnostic (ICD-10-PCS; principal; 2017-11-22)
PROC: BW40ZZZ Ultrasonography of Abdomen (ICD-10-PCS; 2017-11-22)
DX: R18.8 Other ascites (principal)
CPT/HCPCS: 36415; 49083; 76942-TC; 85025; 85610

== ENCOUNTER 2017-12-05 09:11 | Inpatient (IN) | payer MEDICARE ==
--- NOTE | 2017-12-05 09:29 | PDOC ---
History of Present Illness - General Chief Complaint: Wound Stated Complaint: ADMIT Time Seen by Provider: 12/05/17 09:29 History Source: Patient, Spouse Exam Limitations: No Limitations - History of Present Illness Initial Comments: Pt, with PMH of HTN, HLD, Type 2 DM, liver cirrhosis with ascites and esophageal varices, CRD, and osteomyelitis of the L foot with multiple appendage amputations, presents for direct admission for repeat wound debridement of L foot wound. Dr. Gasca completed tibial arthroectomy 11/25/2017, and the pt has had prior removal of R 3rd and 4th toe amputations, and L 4th and 5th amputations with wound debridement. The pt had PICC line placed 2017, has a wound nurse that comes to home, and has seen wound care in hospital every 2 weeks. The pt has been compliant with his medications and is scheduled for repeat debridement of L foot wound tomorrow. The pt complains of recent abdominal swelling. His last paracentesis was 2017 with 8500 cc of fluid drained. He denies fevers/chills, nausea/vomiting, chest pain, SOB, increased leg swelling, or pain in the L foot. 12/05/17 13:55 12/05/17 14:07 Past History - Travel Traveled outside of the country in the last 30 days: No Close contact w/someone who was outside of country & ill: No - Past Medical History Allergies/Adverse Reactions: Allergies Allergy/AdvReac Type Severity Reaction Status Date / Time Iodinated Contrast- Oral and Allergy Verified 12/05/17 09:18 IV Dye [Iodinated Contrast Media - IV Dye] Home Medications: Ambulatory Orders Multivitamins [Multivit ([facility] Formulary)] 1 tab PO DAILY 07/15/16 Aspirin [ASA -] 81 mg PO DAILY tab.chew 10/30/16 Atorvastatin Ca [Lipitor] 10 mg PO HS #30 tab 12/11/16 Pantoprazole Sodium [Protonix] 40 mg PO DAILY #30 tab 12/11/16 Ranolazine [Ranexa] 1,000 mg PO Q12H 09/30/17 Lisinopril 10 mg PO DAILY 11/17/17 Nadolol 20 mg PO DAILY 11/17/17 Insulin Sliding Scale [Novolog Vial Sliding Scale -] 0 unit SQ ACHS 11/18/17 Furosemide [Lasix] 40 mg PO DAILY 12/05/17 Insulin (Levemir) [Levemir Vial] 50 units SQ HS 12/05/17 Metformin HCl [Metformin HCl ER] 500 mg PO BID 12/05/17 Nateglinide [Starlix (Nf)] 60 mg PO TID 12/05/17 Rifaximin [Xifaxan] 550 mg PO BID 12/05/17 Spironolactone 50 mg PO DAILY 12/05/17 Anemia: Yes Asthma: No Cancer: Yes (LIVER) Cardiac Disorders: Yes CVA: Yes COPD: No CHF: No DVT: No Dementia: No Diabetes: Yes GI Disorders: Yes (ESOPHAGEAL VARICES,GASTRITIS) Disorders: No HTN: Yes Hypercholesterolemia: Yes Liver Disease: Yes (HEPATIC ENCEPHALOPATHY) Seizures: No Thyroid Disease: No - Surgical History Abdominal Surgery: No Appendectomy: No Cardiac Surgery: Yes (CARDIAC STENTS) Cholecystectomy: Yes Lung Surgery: No Neurologic Surgery: No Orthopedic Surgery: No - Immunization History Immunization Up to Date: Yes - Suicide/Smoking/Psychosocial Hx Smoking Status: No Smoking History: Never smoked Have you smoked in the past 12 months: No Number of Cigarettes Smoked Daily: 0 Cigars Per Day: 0 Information on smoking cessation initiated: No Hx Alcohol Use: No Drug/Substance Use Hx: No Substance Use Type: None Hx Substance Use Treatment: No Review of Systems - Review of Systems Able to Perform ROS?: Yes Is the patient limited Hungarian proficient: No Constitutional: Yes: Weight Stable. No: Chills, Diaphoresis, Fever, Loss of Appetite HEENTM: No: Recent change in vision, Hearing Loss, Difficulty Swallowing Respiratory: No: Cough, Orthopnea, Shortness of Breath, Productive cough Cardiac (ROS): No: Chest Pain, Edema, Irregular Heart Rate, Lightheadedness, Syncope ABD/GI: Yes: Abdominal Distended. No: Constipated, Diarrhea, Nausea, Poor Appetite, Poor Fluid Intake, Vomiting : No: Burning, Dysuria, Frequency, Hematuria, Urgency Musculoskeletal: No: Joint Pain, Muscle Pain Integumentary: No: Bruising, Rash Neurological: No: Headache, Dizziness Psychiatric: No: Change in Appetite Endocrine: No: Increased Thirst, Increased Urine, Unexplained Weight Gain Hematologic/Lymphatic: No: Anemia, Blood Clots, Easy Bleeding All Other Systems: Reviewed and Negative *Physical Exam - Vital Signs Last Vital Signs Temp Pulse Resp BP Pulse Ox 97.9 F 60 16 128/62 100 12/05/17 09:19 12/05/17 09:19 12/05/17 09:19 12/05/17 09:19 12/05/17 09:19 - Physical Exam General Appearance: Yes: Nourished, Appropriately Dressed, Obese. No: Apparent Distress HEENT: positive: EOMI, Normal ENT Inspection, Normal Voice, Symmetrical, Pharynx Normal, Hearing Grossly Normal Neck: positive: Trachea midline, Normal Thyroid, Supple. negative: Tender, Rigid Respiratory/Chest: positive: Lungs Clear, Decreased Breath Sounds (decreased breath sounds posterior, no crackles). negative: Chest Tender, Normal Breath Sounds, Respiratory Distress, Accessory Muscle Use Cardiovascular: positive: Regular Rhythm, Regular Rate, S1, S2, Edema (b/l feet swelling, non-pitting). negative: JVD, Murmur Vascular Pulses: Dorsalis-Pedis (R): 4+, Doralis-Pedis (L): 4+ Gastrointestinal/Abdominal: positive: Normal Bowel Sounds, Soft, Distended ( protuberant abdomen, fluid shift). negative: Tender, Organomegaly (no hepatomegaly palpated, protuberant abdomen difficult to assess), Pulsatile Mass , Guarding, Rebound Lymphatic: negative: Adenopathy, Tenderness Musculoskeletal: positive: Normal Inspection. negative: CVA Tenderness Extremity: positive: Normal Capillary Refill, Normal Range of Motion, Pelvis Stable, Pedal Edema, Other (Amputated toes, as listed in HPI. 10 cm open, purulent wound on lateral L foot. ). negative: Normal Inspection, Tender Integumentary: positive: Normal Color, Dry, Warm, Other (Draining L open foot wound). negative: Ecchymosis Neurologic: positive: career transition specialist II-XII NML intact, Fully Oriented, Alert, Normal Mood/ Affect, Normal Response, Motor Strength 5/5, Sensory Deficit (decreased sensation to light touch, b/l dorsal feet up to mid-crespo. ) ED Treatment Course - LABORATORY CBC & Chemistry Diagram: 12/05/17 10:00 12/05/17 10:02 - RADIOLOGY Radiology Studies Ordered: chest x-ray: unchanged from prior read. 12/05/17 14:15 Medical Decision Making - Medical Decision Making Pt seen and comfortable. Ordered pre-operative labs (CBC, CMP, type & screen, coags), ECG, and chest x-ray. Wound is packed. Dr. Cardoso received report and spoke to surgeon. 12/05/17 10:02 Spoke to hospitalist, will admit under Dr. Avila for Dr. Aguirre. Wound dressing changed. H/H 7.9/23.6, WBC 5.1, Plt 87, INR 1.15. Hospitalist team will start desired antibiotics and come to see pt. Pt continues to be stable and without pain. 12/05/17 12:29 Pt continues to be comfortable. Awaiting move to bed on med/surg floor. 12/05/17 14:15 *DC/Admit/Observation/Transfer Diagnosis at time of Disposition: DM Diabetes mellitus, Hyperlipidemia Wound, open, foot Qualifiers: Encounter type: subsequent encounter Laterality: left Qualified Code(s): S91.302D - Unspecified open wound, left foot, subsequent encounter Diabetic ulcer of left foot Qualifiers: Diabetic foot ulcer location: other Diabetes mellitus type: type 2 Non- pressure ulcer stage: with other severity Qualified Code(s): E11.621 - Type 2 diabetes mellitus with foot ulcer Hypertension Qualifiers: Hypertension type: unspecified Qualified Code(s): I10 - Essential (primary) hypertension - Discharge Dispostion Condition at time of disposition: Stable Decision to Admit order: Yes - Referrals - Patient Instructions - Post Discharge Activity
[2017-12-05 10:22] LABS: BASO % 0.5 % (0-2.0); EOS % 0.5 % (0-4.5); HEMATOCRIT 23.6 % (35.4-49); HEMOGLOBIN 7.9 GM/dL (11.7-16.9); LYMPH % 8.2 % (8-40); MCH 30.5 pg (25.7-33.7); MCHC 33.5 g/dl (32.0-35.9); MEAN PLT VOLUME 8.5 fl (7.5-11.1); MONO % 7.5 % (3.8-10.2); NEUT % 83.3 % (42.8-82.8); PLATELET COUNT 87 K/MM3 (134-434); RDW 17.3 % (11.9-15.9); WHITE BLOOD COUNT 5.1 K/mm3 (4.0-10.0)
--- NOTE | 2017-12-05 10:28 | PDOC ---
Attending Attestation - Resident Resident Name: CeliaBrennaZita - ED Attending Attestation I have performed the following: I have examined & evaluated the patient, The case was reviewed & discussed with the resident, I agree w/resident's findings & plan - HPI HPI: 12/05/17 10:26 57-year-old male with chronic diabetic foot ulcer complicated by osteomyelitis currently on daily antibiotics at home via right arm PICC line presents for worsening of wound requiring debridement. Patient is being treated by Dr. Duran , Dr. Aguirre, and Dr. Gasca. no fever/chills - Physicial Exam PE: 12/05/17 10:26 Vital signs normal, afebrile Well-appearing lying in stretcher Left foot: Status post partial amputation, open wound along the lateral metatarsal region with purulence, no obvious necrosis or cellulitis. - Medical Decision Making 12/05/17 10:27 57-year-old male with chronic diabetic foot ulcer/osteomyelitis, nonhealing requiring debridement. Preoperative labs Discussed with Dr. June, who will likely operate tomorrow Received his last dose of antibiotics yesterday, to be continued during admission
[2017-12-05 10:38] LABS: INR 1.15 (0.82-1.09)
[2017-12-05 10:40] LABS: ACTIVATED PTT 36.2 SECONDS (25.2-36.5)
[2017-12-05 10:54] LABS: ALBUMIN 2.2 g/dl (3.4-5.0); ANION GAP 8 (8-16); BLOOD UREA NITROGEN 33 mg/dL (7-18); CALCIUM 8.1 mg/dL (8.5-10.1); CHLORIDE 108 mmol/L (98-107); CO2 23 mmol/L (21-32); CREATININE 1.3 mg/dL (0.7-1.3); GLUCOSE,RANDOM 170 mg/dL (74-106); POTASSIUM 4.7 mmol/L (3.5-5.1); SGOT/AST 48 U/L (15-37); SGPT/ALT 28 U/L (12-78); SODIUM 139 mmol/L (136-145)
[2017-12-05 10:56] LABS: ALK PHOS 219 U/L (45-117); BILIRUBIN,TOTAL 0.9 mg/dL (0.2-1.0); TOT PROT 6.8 g/dl (6.4-8.2)
--- NOTE | 2017-12-05 11:31 | EKG ---
Test Reason : Blood Pressure : / mmHG Vent. Rate : 054 BPM Atrial Rate : 054 BPM P-R Int : 186 ms QRS Dur : 122 ms QT Int : 468 ms P-R-T Axes : 024 -38 035 degrees QTc Int : 443 ms SINUS BRADYCARDIA LEFT AXIS DEVIATION LEFT VENTRICULAR HYPERTROPHY WITH QRS WIDENING ABNORMAL ECG WHEN COMPARED WITH ECG OF 25-OCT-2017 16:16, MINIMAL CRITERIA FOR SEPTAL INFARCT ARE NO LONGER PRESENT Confirmed by JOSE ALFREDO SÁNCHEZ, KRISTINA ([id number]) on 12/05/2017 11:31:29 AM Referred By: Confirmed By:KRISTINA VELIZ MD
--- NOTE | 2017-12-05 12:55 | HP ---
Admitting History and Physical - Admission Chief Complaint: left fifth toe ulcer debridement History of Present Illness: This is a 57 year old male with phx of anemia, HCC, hepatic encephalopathy ( patient is on a liver transplant list), hypertension, hyperlipidemia, CVA, IDDM , gastritis, esophageal varices, L foot wound currently on IV abx via PICC line for osteomyelitis, presenting from wound care visit today. healing of the wound, . 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: Peripheral Neuropathy Cardiovascular: Yes: CAD, HTN, Hyperlipdemia Gastrointestinal: Yes: Ascites, Esophageal Varices, Gastritis, GI Bleed, Hemorrhoids, Other Hepatobiliary: Yes: Cirrhosis (h/o esophageal varices s/p banding, related to HERNANDEZ), Cholelithiasis (s/p lap choly), Other (PORTAL VEIN PARTIAL THROMBOSIS, HCC treated with transhepatic heat ablations at [facility]) Renal/: Yes: Renal Inusuff Heme/Onc: Yes: Anemia, Thrombocytopenia Endocrine: Yes: Diabetes Mellitus - Past Surgical History Past Surgical History: Yes: Amputation (left toe #4, right toes #2,3), Cholecystectomy, Colonoscopy, Hernia Repair, Upper Endoscopy - Smoking History Smoking history: Never smoked Have you smoked in the past 12 months: No Aproximately how many cigarettes per day: 0 - Alcohol/Substance Use Hx Alcohol Use: No History of Substance Use: reports: None - Social History ADL: Independent 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 [employer] History of Recent Travel: No Home Medications - Allergies Allergies/Adverse Reactions: Allergies Allergy/AdvReac Type Severity Reaction Status Date / Time Iodinated Contrast- Oral and Allergy Verified 12/05/17 09:18 IV Dye [Iodinated Contrast Media - IV Dye] - Home Medications Home Medications: Ambulatory Orders Multivitamins [Multivit ([facility] Formulary)] 1 tab PO DAILY 07/15/16 Aspirin [ASA -] 81 mg PO DAILY tab.chew 10/30/16 Atorvastatin Ca [Lipitor] 10 mg PO HS #30 tab 12/11/16 Pantoprazole Sodium [Protonix] 40 mg PO DAILY #30 tab 12/11/16 Ranolazine [Ranexa] 1,000 mg PO Q12H 09/30/17 Lisinopril 10 mg PO DAILY 11/17/17 Nadolol 20 mg PO DAILY 11/17/17 Insulin Sliding Scale [Novolog Vial Sliding Scale -] 0 unit SQ ACHS 11/18/17 Furosemide [Lasix] 40 mg PO DAILY 12/05/17 Insulin (Levemir) [Levemir Vial] 50 units SQ HS 12/05/17 Metformin HCl [Metformin HCl ER] 500 mg PO BID 12/05/17 Nateglinide [Starlix (Nf)] 60 mg PO TID 12/05/17 Rifaximin [Xifaxan] 550 mg PO BID 12/05/17 Spironolactone 50 mg PO DAILY 12/05/17 Family Disease History - Family Disease History Family Disease History: Diabetes: Brother (alcoholic cirrhosis), Sister, CA: Mother (breast Ca), Other: Father ( from alcohol related complications) Review of Systems - Review of Systems Musculoskeletal: reports: Other (left fifth toe wound) Physical Examination Vital Signs: Vital Signs Temperature 97.9 F 12/05/17 09:19 Pulse Rate 60 12/05/17 09:19 Respiratory Rate 16 12/05/17 09:19 Blood Pressure 128/62 12/05/17 09:19 O2 Sat by Pulse Oximetry (%) 98 12/05/17 10:14 Constitutional: Yes: Calm Cardiovascular: Yes: Regular Rate and Rhythm, S1, S2 Respiratory: Yes: CTA Bilaterally Gastrointestinal: Yes: Soft, Ascites, Distention Musculoskeletal: Yes: Other (picc line) Extremities: Yes: Other Edema: Yes Wound/Incision: Yes: Other (left foot fifth toe wound open and seen) Labs: CBC, BMP 12/05/17 10:00 12/05/17 10:02 Problem List - Problems (1) Diabetic ulcer of left foot Assessment/Plan: debridement tmw per podiatry NPO tonight iv abx via picc line ertrapenem ID consult Code(s): E11.621 - TYPE 2 DIABETES MELLITUS WITH FOOT ULCER; L97.529 - NON- PRESSURE CHRONIC ULCER OTH PRT LEFT FOOT W UNSP SEVERITY Qualifiers: Diabetic foot ulcer location: other Diabetes mellitus type: type 2 Non- pressure ulcer stage: with other severity Qualified Code(s): E11.621 - Type 2 diabetes mellitus with foot ulcer; L97.528 - Non-pressure chronic ulcer of other part of left foot with other specified severity (2) DM Diabetes mellitus Assessment/Plan: insulin levemir bgm sliding scale Code(s): E11.9 - TYPE 2 DIABETES MELLITUS WITHOUT COMPLICATIONS (3) Ascites Assessment/Plan: spironolactone and lasix paracentesis via IR Code(s): R18.8 - OTHER ASCITES (4) Liver cirrhosis Assessment/Plan: nadalol lactulose rifaximin Code(s): K74.60 - UNSPECIFIED CIRRHOSIS OF LIVER
[2017-12-05] MEDS ORDERED: LACTULOSE 20 GM/30 ML UDC (FOR ORAL USE ONLY) PO PRN (13:10)
[2017-12-05] MEDS ORDERED: ERTAPENEM SODIUM 1 GM/50 ML PRE-DOCKED IVPB SCH (13:15)
[2017-12-05] MEDS ORDERED: ERTAPENEM SODIUM 1 GM VIAL ONE (13:16)
[2017-12-05] MEDS: ERTAPENEM SODIUM 1 GM in SODIUM CHLORIDE 50 ML IVPB SCH (13:40)
--- NOTE | 2017-12-05 15:31 | PN ---
Progress Note (short form) - Note Progress Note: patient to go to OR tmw afternoon after 1;00pm to get paracentesis early in morning cardiology and GI consult start diuretics on tuesday Problem List - Problems (1) Diabetic ulcer of left foot Code(s): E11.621 - TYPE 2 DIABETES MELLITUS WITH FOOT ULCER; L97.529 - NON- PRESSURE CHRONIC ULCER OTH PRT LEFT FOOT W UNSP SEVERITY Qualifiers: Diabetic foot ulcer location: other Diabetes mellitus type: type 2 Non- pressure ulcer stage: with other severity Qualified Code(s): E11.621 - Type 2 diabetes mellitus with foot ulcer; L97.528 - Non-pressure chronic ulcer of other part of left foot with other specified severity (2) DM Diabetes mellitus Code(s): E11.9 - TYPE 2 DIABETES MELLITUS WITHOUT COMPLICATIONS (3) Ascites Code(s): R18.8 - OTHER ASCITES (4) Liver cirrhosis Code(s): K74.60 - UNSPECIFIED CIRRHOSIS OF LIVER
--- NOTE | 2017-12-05 15:32 | CON.CARD ---
Consult Consult Specialty:: Cardiology Referred by:: Dr. Watkins Reason for Consultation:: Preop cardiac evaluation for foot surgery - History of Present Illness Chief Complaint: Admitted for L foot wound debridement History of Present Illness: 57 M with pmh anemia, HCC, history of portal vein thrombosis, hyperlipidemia, CVA, IDDM, gastritis, PVD, esophageal varices, multiple prior foot surgeries including amputations, admitted for L foot wound with plan for debridement. Pt seen and examined in the ER in nad. states he is otherwise feeling well. He walks with a walker but states he goes out of the apartment walking each day. He denies any chest pain or sob with his daily activities. No pnd or orthopnea. No palpitations. Echocardiogram in 2017 showed normal LV systolic function without valvular pathology. 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: Peripheral Neuropathy Cardio/Vascular: Yes: CAD, HTN, Hyperlipdemia Gastrointestinal: Yes: Ascites, Esophageal Varices, Gastritis, GI Bleed, Hemorrhoids, Other Hepatobiliary: Yes: Cirrhosis (h/o esophageal varices s/p banding, related to HERNANDEZ), Cholelithiasis (s/p lap choly), Other (PORTAL VEIN PARTIAL THROMBOSIS, HCC treated with transhepatic heat ablations at [facility]) Renal/: Yes: Renal Inusuff Endocrine: Yes: Diabetes Mellitus - Past Surgical History Past Surgical History: Yes: Amputation (left toe #4, right toes #2,3), Cholecystectomy, Colonoscopy, Hernia Repair, Upper Endoscopy - Alcohol/Substance Use Hx Alcohol Use: No History of Substance Use: reports: None - Smoking History Smoking history: Never smoked Have you smoked in the past 12 months: No Aproximately how many cigarettes per day: 0 - Social History Usual Living Arrangement: With Spouse ADL: Independent 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 [employer] History of Recent Travel: No Home Medications - Allergies Allergies/Adverse Reactions: Allergies Allergy/AdvReac Type Severity Reaction Status Date / Time Iodinated Contrast- Oral and Allergy Verified 12/05/17 09:18 IV Dye [Iodinated Contrast Media - IV Dye] - Home Medications Home Medications: Ambulatory Orders Multivitamins [Multivit ([facility] Formul[facility])] 1 tab PO DAILY 07/15/16 Aspirin [ASA -] 81 mg PO DAILY tab.chew 10/30/16 Atorvastatin Ca [Lipitor] 10 mg PO HS #30 tab 12/11/16 Pantoprazole Sodium [Protonix] 40 mg PO DAILY #30 tab 12/11/16 Ranolazine [Ranexa] 1,000 mg PO Q12H 09/30/17 Lisinopril 10 mg PO DAILY 11/17/17 Nadolol 20 mg PO DAILY 11/17/17 Insulin Sliding Scale [Novolog Vial Sliding Scale -] 0 unit SQ ACHS 11/18/17 Furosemide [Lasix] 40 mg PO DAILY 12/05/17 Insulin (Levemir) [Levemir Vial] 50 units SQ HS 12/05/17 Metformin HCl [Metformin HCl ER] 500 mg PO BID 12/05/17 Nateglinide [Starlix (Nf)] 60 mg PO TID 12/05/17 Rifaximin [Xifaxan] 550 mg PO BID 12/05/17 Spironolactone 50 mg PO DAILY 12/05/17 Family Disease History - Family Disease History Family Disease History: Diabetes: Brother (alcoholic cirrhosis), Sister, CA: Mother (breast Ca), Other: Father ( from alcohol related complications) Review of Systems - Review of Systems Constitutional: denies: No Symptoms, Chills, Diaphoresis, Fever, Lethargy, Loss of Appetite, Malaise, Night Sweats, Unintentional Wgt. Loss, Weakness, Other Eyes: denies: No Symptoms, Blind Spots, Blurred Vision, Double Vision, Eye Pain , Floaters, Photophobia, Recent Change in Vision, Other HENT: denies: No Symptoms, Difficult Swallowing, Ear Discharge, Ear Pain, Epistaxis, Gingival Bleeding, Hearing Loss, Mouth Swelling, Nasal Congestion, Ocular Prosthesis, Throat Pain, Toothache, Ringing in Ears, Other Neck: denies: No Symptoms, Decreased ROM, Lumps, Pain on Movement, Stiffness, Swollen Glands, Tenderness, Other Cardiovascular: denies: No Symptoms, Chest Pain, Edema, Palpitations, Shortness of Breath, Other Respiratory: denies: No Symptoms, Cough, Exercise Intolerance, Hemoptysis, Orthopnea, PND, Snoring, SOB, SOB on Exertion, Wheezing, Other Gastrointestinal: reports: Bloating. denies: No Symptoms, Abdominal Pain, Constipation, Diarrhea, Dysphagia, Indigestion, Melena, Nausea, Rectal Bleeding , Vomiting, Vomiting Blood, Other Genitourinary: denies: No Symptoms, Burning, Discharge, Dysuria, Flank Pain, Frequency, Hematuria, Incontinence, Lesions, Menses, Pain, Testicular Mass, Testicular Pain, Testicular Swelling, Urgency, Vaginal Bleeding, Other Breasts: denies: No Symptoms Reported, See HPI, Breast Implants, Discharge from Nipple, Lumps, Pain, Skin Changes, Other Musculoskeletal: denies: No Symptoms, Back Pain, Crepitus, Decreased ROM, Extremity Pain, Joint Pain, Joint Swelling, Muscle Pain, Muscle Cramps, Muscle Weakness, Other Integumentary: reports: Wound. denies: No Symptoms, Blister, Bruising, Change in Color, Eczema, Erythema, Incision, Lesions, Lump, Pallor, Pruritis, Rash, Other Neurological: denies: No Symptoms, Change in LOC, Change in Speech, Confusion, Dizziness, Headache, Incoordination, Numbness, Parasthesia, Pre-Existing Deficit , Seizure, Syncope, Tremors, Unsteady Gait, Weakness, Other Endocrine: denies: No Symptoms, Excessive Sweating, Flushing, Increased Hunger, Increased Thirst, Intolerance to Cold, Intolerance to Heat, Unexplained Weight Gain, Unexplained Weight Loss, Other Hematology/Lymphatic: denies: No Symptoms, Easily Bruised, Excessive Bleeding, Swollen Glands, Other Psychiatric: denies: No Symptoms, Altered Sleep Pattern, Anxiety, Depression, Hallucinations, Panic, Paranoia, Suicidal, Other - Risk Factors Known Risk Factors: Yes: Diabetes Mellitus, Hypercholesterolemia, Hypertension Vital Signs: Vital Signs Temperature 98.6 F 12/05/17 14:21 Pulse Rate 57 L 12/05/17 14:21 Respiratory Rate 18 12/05/17 14:21 Blood Pressure 113/56 12/05/17 14:21 O2 Sat by Pulse Oximetry (%) 99 12/05/17 14:21 Constitutional: Yes: No Distress, Calm Eyes: Yes: Conjunctiva Clear, EOM Intact, PERRL HENT: Yes: Atraumatic, Normocephalic Neck: Yes: Supple, Trachea Midline Respiratory: Yes: Regular, CTA Bilaterally. No: Rales, Rhonchi, SOB, Wheezes Gastrointestinal: Yes: Normal Bowel Sounds, Abdomen, Obese, Ascites, Distention. No: Tenderness Renal/: Yes: WNL Cardiovascular: Yes: Regular Rate and Rhythm. No: Bradycardia, Tachycardia, Pulse Irregular, Gallop, Rub, Varicosities JVD: No Carotid Bruit: No PMI: Non-Displaced Heart Sounds: Yes: S1, S2. No: Split S2, S3, S4, Clicks, Gallop, Rub, Bruit Murmur: Yes: Systolic Murmur, Grade 2. No: Diastolic Murmur Musculoskeletal: Yes: Joint Swelling Extremities: Yes: Amputation Edema: Yes Edema: LLE: Trace Peripheral Pulses WNL: No Neurological: Yes: Alert, Oriented Psychiatric: Yes: Alert, Oriented - Other Data Labs, Other Data: CBC, BMP 12/05/17 10:00 12/05/17 10:02 INR, PTT INR 1.15 (0.82-1.09) H 12/05/17 10:00 ekg-sinus bradycardia 54bpm, LVH, LAFB Echo: Report Reviewed Imaging - Results Chest X-ray: Report Reviewed, Image Reviewed EKG: Report Reviewed, Image Reviewed Other: Report Reviewed, Image Reviewed Assessment/Plan 57 M with pmh anemia, HCC, history of portal vein thrombosis, hyperlipidemia, CVA, IDDM, gastritis, PVD, esophageal varices, multiple prior foot surgeries including amputations, admitted for L foot wound with plan for debridement. Pt seen and examined in the ER in nad. states he is otherwise feeling well. He walks with a walker but states he goes out of the apartment walking each day. He denies any chest pain or sob with his daily activities. No pnd or orthopnea. No palpitations. Echocardiogram in 2017 showed normal LV systolic function without valvular pathology. Preop cardiac evaluation for L foot surgery and debridement -at this time there is no cardiac contraindication to the planned procedure and would recommend to proceed without delay for additional cardiac work up. -HTN is adequately controlled, would cont current ant-htn regimen throughout the procedure -[facility] routine perioperative monitoring. Please call with any additional questions.
--- NOTE | 2017-12-05 16:00 | CON.GI ---
Consult Consult Specialty:: GI Reason for Consultation:: End stage liver diases - History of Present Illness History of Present Illness: Chart reviewed. Eventsnoted. The pt is known to GI service from prior admissions. Prior admissions going back to early 2016 reviewed. A 57-year-old gentleman with history of Diabetes, metabolic liver disease, liver cirrhosis, portal hypertension, grade 3 esophageal varices status post banding, portal veins from boluses, hepatocellular carcinoma status post radiation therapy, followed at [facility] by Drs. Geronimo and Justice. Admitted for lower extremity infection and need for debridement. GI was called for moderate ascites. Asymptomatic. EGD 09/30 showed gastric and esophageal varices. At the time of this encountered the patient is awake, alert, oriented 3. No asterixis, tremors, jaundice. Does not appear toxic. Reports his liver history in fairly good detail. Remembers all his current medications. He is scheduled for lower extremity wound debridement tomorrow. The patient denies early satiety, dysphagia, odynophagia or nausea, vomiting, hematemesis, coffee- ground emesis, jaundice, low-grade fever, chills, early satiety, shortness of breath sitting up, or laying down. Denies abdominal pain, tenderness. Denies melena, hematochezia, change in stool caliber. - History Source History Provided By: Patient, Medical Record - Past Medical History HOST AND HOSTESS: Yes: Peripheral Neuropathy Cardio/Vascular: Yes: CAD, HTN, Hyperlipdemia Gastrointestinal: Yes: Ascites, Esophageal Varices, Gastritis, GI Bleed, Hemorrhoids, Other Hepatobiliary: Yes: Cirrhosis (h/o esophageal varices s/p banding, related to HERNANDEZ), Cholelithiasis (s/p lap choly), Other (PORTAL VEIN PARTIAL THROMBOSIS, HCC treated with transhepatic heat ablations at 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 [employer] History of Recent Travel: No Home Medications - Allergies Allergies/Adverse Reactions: Allergies Allergy/AdvReac Type Severity Reaction Status Date / Time Iodinated Contrast- Oral and Allergy Verified 12/05/17 09:18 IV Dye [Iodinated Contrast Media - IV Dye] - Home Medications Home Medications: Ambulatory Orders Multivitamins [Multivit ([facility] Formul[facility])] 1 tab PO DAILY 07/15/16 Aspirin [ASA -] 81 mg PO DAILY tab.chew 10/30/16 Atorvastatin Ca [Lipitor] 10 mg PO HS #30 tab 12/11/16 Pantoprazole Sodium [Protonix] 40 mg PO DAILY #30 tab 12/11/16 Ranolazine [Ranexa] 1,000 mg PO Q12H 09/30/17 Lisinopril 10 mg PO DAILY 11/17/17 Nadolol 20 mg PO DAILY 11/17/17 Insulin Sliding Scale [Novolog Vial Sliding Scale -] 0 unit SQ ACHS 11/18/17 Furosemide [Lasix] 40 mg PO DAILY 12/05/17 Insulin (Levemir) [Levemir Vial] 50 units SQ HS 12/05/17 Metformin HCl [Metformin HCl ER] 500 mg PO BID 12/05/17 Nateglinide [Starlix (Nf)] 60 mg PO TID 12/05/17 Rifaximin [Xifaxan] 550 mg PO BID 12/05/17 Spironolactone 50 mg PO DAILY 12/05/17 Family Disease History - Family Disease History Family Disease History: Diabetes: Brother (alcoholic cirrhosis), Sister, CA: Mother (breast Ca), Other: Father ( from alcohol related complications) Physical Exam-GI Vital Signs: Vital Signs Temperature 98.6 F 12/05/17 14:21 Pulse Rate 57 L 12/05/17 14:21 Respiratory Rate 18 12/05/17 14:21 Blood Pressure 113/56 12/05/17 14:21 O2 Sat by Pulse Oximetry (%) 99 12/05/17 14:21 Constitutional: Yes: No Distress, Calm Eyes: No: Sclera Icterus HENT: Yes: Atraumatic, Normocephalic Neck: Yes: Supple Cardiovascular: Yes: Regular Rate and Rhythm Respiratory: Yes: Regular Gastrointestinal Inspection: Yes: Ascites, Distention ...Auscultate: Yes: Normoactive Bowel Sounds ...Palpate: No: Firm/Rigid, Guarding, Mass, Tenderness, Tenderness, Epigastium, Tenderness, Rebound ...Percussion: Yes: Fluid Wave Neurological: Yes: Alert, Oriented. No: Asterixis, Confusion, Lethargy, Tremors Labs: CBC, BMP 12/05/17 10:00 12/05/17 10:02 INR, PTT INR 1.15 (0.82-1.09) H 12/05/17 10:00 Laboratory Last Values WBC 5.1 K/mm3 (4.0-10.0) 12/05/17 10:00 RBC 2.60 M/mm3 (4.00-5.60) L 12/05/17 10:00 Hgb 7.9 GM/dL (11.7-16.9) L 12/05/17 10:00 Hct 23.6 % (35.4-49) L 12/05/17 10:00 MCV 91.0 fl (80-96) 12/05/17 10:00 MCH 30.5 pg (25.7-33.7) 12/05/17 10:00 MCHC 33.5 g/dl (32.0-35.9) 12/05/17 10:00 RDW 17.3 % (11.9-15.9) H 12/05/17 10:00 Plt Count 87 K/MM3 (134-434) L D 12/05/17 10:00 MPV 8.5 fl (7.5-11.1) 12/05/17 10:00 Absolute Neuts (auto) 4.3 # 12/05/17 10:00 Neutrophils % 83.3 % (42.8-82.8) H 12/05/17 10:00 Lymphocytes % 8.2 % (8-40) D 12/05/17 10:00 Monocytes % 7.5 % (3.8-10.2) 12/05/17 10:00 Eosinophils % 0.5 % (0-4.5) D 12/05/17 10:00 Basophils % 0.5 % (0-2.0) 12/05/17 10:00 Nucleated RBC % 0 % (0-0) 12/05/17 10:00 PT with INR 13.00 SEC (9.7-13.0) 12/05/17 10:00 INR 1.15 (0.82-1.09) H 12/05/17 10:00 PTT (Actin FS) 36.2 SECONDS (25.2-36.5) 12/05/17 10:00 Sodium 139 mmol/L (136-145) 12/05/17 10:02 Potassium 4.7 mmol/L (3.5-5.1) 12/05/17 10:02 Chloride 108 mmol/L (98-107) H 12/05/17 10:02 Carbon Dioxide 23 mmol/L (21-32) 12/05/17 10:02 Anion Gap 8 (8-16) 12/05/17 10:02 BUN 33 mg/dL (7-18) H 12/05/17 10:02 Creatinine 1.3 mg/dL (0.7-1.3) 12/05/17 10:02 Creat Clearance w eGFR 56.50 (>60) 12/05/17 10:02 Random Glucose 170 mg/dL (74-106) H 12/05/17 10:02 Calcium 8.1 mg/dL (8.5-10.1) L 12/05/17 10:02 Total Bilirubin 0.9 mg/dL (0.2-1.0) 12/05/17 10:02 AST 48 U/L (15-37) H D 12/05/17 10:02 ALT 28 U/L (12-78) D 12/05/17 10:02 Alkaline Phosphatase 219 U/L (45-117) H 12/05/17 10:02 Total Protein 6.8 g/dl (6.4-8.2) 12/05/17 10:02 Albumin 2.2 g/dl (3.4-5.0) L 12/05/17 10:02 Blood Type A POSITIVE 12/05/17 10:00 Antibody Screen Negative 12/05/17 10:00 Problem List - Problems (1) Gastric varices without bleeding Code(s): I86.4 - GASTRIC VARICES (2) Ascites Code(s): R18.8 - OTHER ASCITES (3) Diabetic ulcer of left foot Code(s): E11.621 - TYPE 2 DIABETES MELLITUS WITH FOOT ULCER; L97.529 - NON- PRESSURE CHRONIC ULCER OTH PRT LEFT FOOT W UNSP SEVERITY Qualifiers: Diabetic foot ulcer location: other Diabetes mellitus type: type 2 Non- pressure ulcer stage: with other severity Qualified Code(s): E11.621 - Type 2 diabetes mellitus with foot ulcer; L97.528 - Non-pressure chronic ulcer of other part of left foot with other specified severity (4) Wound, open, foot Code(s): S91.309A - UNSPECIFIED OPEN WOUND, UNSPECIFIED FOOT, INITIAL ENCOUNTER Qualifiers: Encounter type: subsequent encounter Laterality: left Qualified Code(s): S91.302D - Unspecified open wound, left foot, subsequent encounter (5) HCC (hepatocellular carcinoma) Code(s): C22.0 - LIVER CELL CARCINOMA (6) Portal hypertension with esophageal varices Code(s): K76.6 - PORTAL HYPERTENSION; I85.00 - ESOPHAGEAL VARICES WITHOUT BLEEDING Assessment/Plan Continue current management and medications. Consider albumin IV if large volume paracentesis attempted. The pt is already on "dry" side with elevated BUN. Discussed with the patient. Will monitor.
--- NOTE | 2017-12-05 16:21 | CON.ID ---
Consult Consult Specialty:: infectious diseases Reason for Consultation:: osteo of the lt foot - History of Present Illness Chief Complaint: open non healing wound with bone exposure History of Present Illness: 57 M with pmh anemia, HCC, history of portal vein thrombosis, hyperlipidemia, CVA, IDDM, gastritis, PVD, esophageal varices, multiple prior foot surgeries including amputations, admitted for L foot wound with plan for debridement. Pt seen and examined in the ER in nad. states he is otherwise feeling well. He walks with a walker but states he goes out of the apartment walking each day. He denies any chest pain or sob with his daily activities. No pnd or orthopnea. No palpitations. 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: Peripheral Neuropathy Cardio/Vascular: Yes: CAD, HTN, Hyperlipdemia Gastrointestinal: Yes: Ascites, Esophageal Varices, Gastritis, GI Bleed, Hemorrhoids, Other Hepatobiliary: Yes: Cirrhosis (h/o esophageal varices s/p banding, related to HERNANDEZ), Cholelithiasis (s/p lap choly), Other (PORTAL VEIN PARTIAL THROMBOSIS, HCC treated with transhepatic heat ablations at [facility]) Renal/: Yes: Renal Inusuff Endocrine: Yes: Diabetes Mellitus - Past Surgical History Past Surgical History: Yes: Amputation (left toe #4, right toes #2,3), Cholecystectomy, Colonoscopy, Hernia Repair, Upper Endoscopy - Alcohol/Substance Use Hx Alcohol Use: No History of Substance Use: reports: None - Smoking History Smoking history: Never smoked Have you smoked in the past 12 months: No Aproximately how many cigarettes per day: 0 - Social History Usual Living Arrangement: With Spouse ADL: Independent 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 [employer] History of Recent Travel: No Home Medications - Allergies Allergies/Adverse Reactions: Allergies Allergy/AdvReac Type Severity Reaction Status Date / Time Iodinated Contrast- Oral and Allergy Verified 12/05/17 09:18 IV Dye [Iodinated Contrast Media - IV Dye] - Home Medications Home Medications: Ambulatory Orders Multivitamins [Multivit ([facility] Formul[facility])] 1 tab PO DAILY 07/15/16 Aspirin [ASA -] 81 mg PO DAILY tab.chew 10/30/16 Atorvastatin Ca [Lipitor] 10 mg PO HS #30 tab 12/11/16 Pantoprazole Sodium [Protonix] 40 mg PO DAILY #30 tab 12/11/16 Ranolazine [Ranexa] 1,000 mg PO Q12H 09/30/17 Lisinopril 10 mg PO DAILY 11/17/17 Nadolol 20 mg PO DAILY 11/17/17 Insulin Sliding Scale [Novolog Vial Sliding Scale -] 0 unit SQ ACHS 11/18/17 Furosemide [Lasix] 40 mg PO DAILY 12/05/17 Insulin (Levemir) [Levemir Vial] 50 units SQ HS 12/05/17 Metformin HCl [Metformin HCl ER] 500 mg PO BID 12/05/17 Nateglinide [Starlix (Nf) -] 60 mg PO TID 12/05/17 Rifaximin [Xifaxan] 550 mg PO BID 12/05/17 Spironolactone 50 mg PO DAILY 12/05/17 Vancomycin 1,250 mg IVPB DAILY@1800 vial 12/09/17 oxyCODONE HCL [Roxicodone -] 5 mg PO Q6H #20 tablet MDD 4 12/09/17 Family Disease History - Family Disease History Family Disease History: Diabetes: Brother (alcoholic cirrhosis), Sister, CA: Mother (breast Ca), Other: Father ( from alcohol related complications) Review of Systems - Review of Systems Constitutional: reports: No Symptoms Eyes: reports: No Symptoms HENT: reports: No Symptoms Neck: reports: No Symptoms Cardiovascular: reports: No Symptoms Respiratory: reports: No Symptoms Gastrointestinal: reports: No Symptoms Genitourinary: reports: No Symptoms Musculoskeletal: reports: Other Integumentary: reports: Erythema (left foot), Wound Neurological: reports: No Symptoms Endocrine: reports: No Symptoms Hematology/Lymphatic: reports: No Symptoms Psychiatric: reports: No Symptoms Physical Exam Vital Signs: Vital Signs Temperature 98.6 F 12/05/17 14:21 Pulse Rate 57 L 12/05/17 14:21 Respiratory Rate 18 12/05/17 14:21 Blood Pressure 113/56 12/05/17 14:21 O2 Sat by Pulse Oximetry (%) 99 12/05/17 14:21 Constitutional: Yes: Well Nourished, No Distress, Calm, Thin Eyes: Yes: Conjunctiva Clear HENT: Yes: Atraumatic Neck: Yes: Supple, Trachea Midline Cardiovascular: Yes: Regular Rate and Rhythm Respiratory: Yes: Regular, CTA Bilaterally Gastrointestinal: Yes: Normal Bowel Sounds, Soft Musculoskeletal: Yes: Other Extremities: Yes: Other Wound/Incision: Yes: Other (wound break down with exposure of the bone) Neurological: Yes: Alert, Oriented Psychiatric: Yes: Alert, Oriented Labs: CBC, BMP 12/05/17 10:00 12/05/17 10:02 Imaging - Results Chest X-ray: Report Reviewed, Image Reviewed Ultrasound: Report Reviewed, Image Reviewed Assessment/Plan Problem List - Problems (1) Diabetic ulcer of left foot Code(s): E11.621 - TYPE 2 DIABETES MELLITUS WITH FOOT ULCER; L97.529 - NON- PRESSURE CHRONIC ULCER OTH PRT LEFT FOOT W UNSP SEVERITY Qualifiers: Diabetic foot ulcer location: other Diabetes mellitus type: type 2 Non- pressure ulcer stage: with other severity Qualified Code(s): E11.621 - Type 2 diabetes mellitus with foot ulcer; L97.528 - Non-pressure chronic ulcer of other part of left foot with other specified severity (2) DM Diabetes mellitus Code(s): E11.9 - TYPE 2 DIABETES MELLITUS WITHOUT COMPLICATIONS (3) Ascites Code(s): R18.8 - OTHER ASCITES (4) Liver cirrhosis Code(s): K74.60 - UNSPECIFIED CIRRHOSIS OF LIVER osteo of the left foot wound infection plan plan biopsy of the bone wound care await for all the results rest as per the team
[2017-12-05 20:23] VITALS: BMI 37.2
[2017-12-05] MEDS ORDERED: PT OWN MED DRAWER 7, Y5N ONE (20:49)
[2017-12-05] MEDS: HEPARIN NA (PORCINE) 5,000 UNITS/ML 1ML VIAL SQ SCH (21:12)
[2017-12-05] MEDS: INSULIN SLIDING SCALE (NOVOLOG) 1 VIAL SQ SCH (21:16)
[2017-12-05] MEDS: RIFAXIMIN 550 MG TABLET (UD) PO SCH (21:52)
[2017-12-05] MEDS ORDERED: INSULIN (LEVEMIR) 100 UNITS/ML UNITS SQ SCH (22:00)
[2017-12-05] MEDS ORDERED: ATORVASTATIN CA 10 MG TABLET (FP) PO SCH (22:00)
[2017-12-06] MEDS: INSULIN SLIDING SCALE (NOVOLOG) 1 VIAL SQ SCH ×5 (06:01→21:51)
[2017-12-06] MEDS ORDERED: INSULIN (NOVOLOG) ASPART 100 UNITS/ML 10ML VIAL ONE ×2 (06:57→21:08)
[2017-12-06] MEDS ORDERED: PT OWN MED DRAWER 7, Y5N ONE (06:58)
[2017-12-06] MEDS ORDERED: INSULIN (LEVEMIR) 100 UNITS/ML UNITS SQ SCH ×2 (07:00→22:00)
[2017-12-06 07:24] LABS: BASO % 0.7 % (0-2.0); EOS % 0.6 % (0-4.5); HEMATOCRIT 20.7 % (35.4-49); HEMOGLOBIN 7.1 GM/dL (11.7-16.9); LYMPH % 16.8 % (8-40); MCHC 34.4 g/dl (32.0-35.9); MEAN PLT VOLUME 8.3 fl (7.5-11.1); MONO % 11.3 % (3.8-10.2); NEUT % 70.6 % (42.8-82.8); PLATELET COUNT 73 K/MM3 (134-434); RDW 17.4 % (11.9-15.9); WHITE BLOOD COUNT 3.7 K/mm3 (4.0-10.0)
[2017-12-06 07:31] LABS: INR 1.17 (0.82-1.09); PROTHROMBIN TIME (PATIENT) 13.2 SEC (9.7-13.0)
[2017-12-06 07:48] LABS: ALBUMIN 2.1 g/dl (3.4-5.0); ANION GAP 7 (8-16); BLOOD UREA NITROGEN 29 mg/dL (7-18); CALCIUM 8.4 mg/dL (8.5-10.1); CHLORIDE 109 mmol/L (98-107); CO2 25 mmol/L (21-32); GLUCOSE,RANDOM 119 mg/dL (74-106); MAGNESIUM 1.8 mg/dL (1.8-2.4); SGOT/AST 44 U/L (15-37); SODIUM 141 mmol/L (136-145)
[2017-12-06 07:52] LABS: ALK PHOS 212 U/L (45-117); BILIRUBIN,TOTAL 0.9 mg/dL (0.2-1.0); CHOLESTEROL 130 mg/dL (50-200); CREATININE 1.2 mg/dL (0.7-1.3); HDL CHOLESTEROL 40 mg/dL (40-60); PHOSPHOROUS 3.7 mg/dL (2.5-4.9); SGPT/ALT 28 U/L (12-78); TOT PROT 6.6 g/dl (6.4-8.2); TRIGLYCERIDES 72 mg/dL (35-160)
[2017-12-06] MEDS ORDERED: FUROSEMIDE 40 MG TABLET (FP) PO SCH (10:00)
[2017-12-06] MEDS ORDERED: NADOLOL 20 MG TABLET (FP) PO SCH (10:00)
[2017-12-06] MEDS ORDERED: SPIRONOLACTONE 25 MG TABLET (FP) PO SCH (10:00)
[2017-12-06 11:09] LABS: ANISOCYTOSIS 1+; OVALOCYTE 2+; PLATELET ESTIMATE DECREASED
[2017-12-06] MEDS: ERTAPENEM SODIUM 1 GM in SODIUM CHLORIDE 50 ML IVPB SCH (11:43)
[2017-12-06] MEDS: RIFAXIMIN 550 MG TABLET (UD) PO SCH ×2 (11:43→21:50)
[2017-12-06] MEDS: HEPARIN NA (PORCINE) 5,000 UNITS/ML 1ML VIAL SQ SCH ×2 (11:44→21:50)
--- NOTE | 2017-12-06 12:09 | PN ---
Progress Note, Physician Chief Complaint: patient seen and examined 800cc of fluid removed by IR- paracentesis NPO for OR today for left foot fifth digit bone debridement has picc line on invanz - Current Medication List Current Medications: Active Medications Atorvastatin Calcium (Lipitor -) 10 mg PO HS [facility] Last Admin: 12/05/17 21:17 Dose: 10 mg Furosemide (Lasix -) 40 mg PO DAILY [facility] Heparin Sodium (Porcine) (Heparin -) 5,000 unit SQ BID [facility] Last Admin: 12/06/17 11:44 Dose: Not Given Ertapenem 1 gm/ Sodium (Chloride) 50 mls @ 100 mls/hr IVPB DAILY [facility] Last Admin: 12/06/17 11:43 Dose: 100 mls/hr Insulin Aspart (Novolog Vial Sliding Scale -) 1 vial SQ ACHS [facility]; Protocol Last Admin: 12/06/17 11:44 Dose: Not Given Insulin Detemir (Levemir Vial) 10 units SQ HS [facility] Insulin Detemir (Levemir Vial) 25 units SQ ACBK [facility] Lactulose (Cephulac (Oral Use)) 20 gm PO TID PRN PRN Reason: CONSTIPATION Nadolol (Corgard -) 20 mg PO DAILY [facility] Last Admin: 12/06/17 11:42 Dose: 20 mg Rifaximin (Xifaxan -) 550 mg PO BID [facility] Last Admin: 12/06/17 11:43 Dose: 550 mg Spironolactone (Aldactone -) 50 mg PO DAILY [facility] - Objective Vital Signs: Vital Signs Temperature 98 F 12/06/17 08:59 Pulse Rate 61 12/06/17 08:59 Respiratory Rate 18 12/06/17 08:59 Blood Pressure 144/71 12/06/17 08:59 O2 Sat by Pulse Oximetry (%) 99 12/05/17 20:37 Constitutional: Yes: Calm Cardiovascular: Yes: Regular Rate and Rhythm, S1, S2 Respiratory: Yes: CTA Bilaterally Gastrointestinal: Yes: Soft Edema: Yes Neurological: Yes: Alert, Oriented Labs: CBC, BMP 12/06/17 06:00 12/06/17 06:00 INR, PTT INR 1.17 (0.82-1.09) H 12/06/17 06:00 Problem List - Problems (1) Diabetic ulcer of left foot Assessment/Plan: debridement today per podiatry in afternoon appreicate cardiology consult cleared for surgery today NPO iv abx via picc line ertrapenem ID consult start ivf given he is NPO for OR Code(s): E11.621 - TYPE 2 DIABETES MELLITUS WITH FOOT ULCER; L97.529 - NON- PRESSURE CHRONIC ULCER OTH PRT LEFT FOOT W UNSP SEVERITY Qualifiers: Diabetic foot ulcer location: other Diabetes mellitus type: type 2 Non- pressure ulcer stage: with other severity Qualified Code(s): E11.621 - Type 2 diabetes mellitus with foot ulcer; L97.528 - Non-pressure chronic ulcer of other part of left foot with other specified severity (2) DM Diabetes mellitus Assessment/Plan: insulin levemir bgm sliding scale Code(s): E11.9 - TYPE 2 DIABETES MELLITUS WITHOUT COMPLICATIONS (3) Ascites Assessment/Plan: spironolactone and lasix on hold today to start from t[facility] paracentesis via IR done today 800cc removed BP 130/69 and HR 57 after paracentesis Code(s): R18.8 - OTHER ASCITES (4) Liver cirrhosis Assessment/Plan: nadalol lactulose rifaximin Code(s): K74.60 - UNSPECIFIED CIRRHOSIS OF LIVER
[2017-12-06] MEDS ORDERED: DEXTROSE 5%-0.45% SALINE 1,000 ML IV SCH (12:30)
--- NOTE | 2017-12-06 13:25 | PN ---
Progress Note, Physician History of Present Illness: no new issues stable awaiting for biopsy today - Current Medication List Current Medications: Active Medications Atorvastatin Calcium (Lipitor -) 10 mg PO HS [facility] Last Admin: 12/05/17 21:17 Dose: 10 mg Furosemide (Lasix -) 40 mg PO DAILY [facility] Heparin Sodium (Porcine) (Heparin -) 5,000 unit SQ BID [facility] Last Admin: 12/06/17 11:44 Dose: Not Given Ertapenem 1 gm/ Sodium (Chloride) 50 mls @ 100 mls/hr IVPB DAILY [facility] Last Admin: 12/06/17 11:43 Dose: 100 mls/hr Dextrose/Sodium Chloride (D5-1/2ns -) 1,000 mls @ 75 mls/hr IV ASDIR [facility] Insulin Aspart (Novolog Vial Sliding Scale -) 1 vial SQ ACHS [facility]; Protocol Last Admin: 12/06/17 11:44 Dose: Not Given Insulin Detemir (Levemir Vial) 10 units SQ HS [facility] Insulin Detemir (Levemir Vial) 25 units SQ ACBK [facility] Lactulose (Cephulac (Oral Use)) 20 gm PO TID PRN PRN Reason: CONSTIPATION Nadolol (Corgard -) 20 mg PO DAILY [facility] Last Admin: 12/06/17 11:42 Dose: 20 mg Rifaximin (Xifaxan -) 550 mg PO BID [facility] Last Admin: 12/06/17 11:43 Dose: 550 mg Spironolactone (Aldactone -) 50 mg PO DAILY [facility] - Objective Vital Signs: Vital Signs Temperature 98 F 12/06/17 08:59 Pulse Rate 61 12/06/17 08:59 Respiratory Rate 18 12/06/17 08:59 Blood Pressure 144/71 12/06/17 08:59 O2 Sat by Pulse Oximetry (%) 99 12/05/17 20:37 Constitutional: Yes: No Distress, Calm Cardiovascular: Yes: Regular Rate and Rhythm Respiratory: Yes: Regular, CTA Bilaterally Gastrointestinal: Yes: Normal Bowel Sounds, Soft Musculoskeletal: Yes: WNL Extremities: Yes: Other Wound/Incision: Yes: Dressing Dry and Intact Neurological: Yes: Alert, Oriented Psychiatric: Yes: Alert, Oriented Labs: CBC, BMP 12/06/17 06:00 12/06/17 06:00 INR, PTT INR 1.17 (0.82-1.09) H 12/06/17 06:00 Assessment/Plan Problem List - Problems (1) Diabetic ulcer of left foot Code(s): E11.621 - TYPE 2 DIABETES MELLITUS WITH FOOT ULCER; L97.529 - NON- PRESSURE CHRONIC ULCER OTH PRT LEFT FOOT W UNSP SEVERITY Qualifiers: Diabetic foot ulcer location: other Diabetes mellitus type: type 2 Non- pressure ulcer stage: with other severity Qualified Code(s): E11.621 - Type 2 diabetes mellitus with foot ulcer; L97.528 - Non-pressure chronic ulcer of other part of left foot with other specified severity (2) DM Diabetes mellitus Code(s): E11.9 - TYPE 2 DIABETES MELLITUS WITHOUT COMPLICATIONS (3) Ascites Code(s): R18.8 - OTHER ASCITES (4) Liver cirrhosis Code(s): K74.60 - UNSPECIFIED CIRRHOSIS OF LIVER osteo of the left foot wound infection plan plan biopsy of the bone wound care await for all the results rest as per the team
[2017-12-06] MEDS ORDERED: ERTAPENEM SODIUM 1 GM/50 ML PRE-DOCKED IVPB SCH (13:30)
--- NOTE | 2017-12-06 13:35 | PN ---
Progress Note (short form) - Note Progress Note: Pre-operative Note: Risks, benefits, alternatives to surgery discussed at length. Patient amenable for planned procedure. Plan for L foot debridement/lavage under MAC/Local. Angel Aguirre DPM
[2017-12-06] MEDS ORDERED: LIDOCAINE HCL 2% (20ML MULTI-DOSE VIAL) NR ONE (13:38)
[2017-12-06] MEDS ORDERED: LIDOCAINE HCL 2% (50ML VIAL) NR ONE (13:56)
[2017-12-06] MEDS ORDERED: BACITRACIN 50,000 UNITS VIAL TP ONE (14:19)
[2017-12-06] MEDS ORDERED: ERTAPENEM SODIUM 1 GM in SODIUM CHLORIDE 50 ML IVPB SCH (14:45)
[2017-12-06] MEDS ORDERED: LACTULOSE 20 GM/30 ML UDC (FOR ORAL USE ONLY) PO PRN (14:59)
--- NOTE | 2017-12-06 15:07 | OP ---
Operative Note - Note: Operative Date: 12/06/17 Pre-Operative Diagnosis: L foot diabetic foot ulcer and chronic osteomyelitis Operation: L foot debridement and lavage with bone biopsy Post-Operative Diagnosis: Same as Pre-op Surgeon: Beka Aguirre Anesthesia: Local, MAC Specimens Removed: bone left foot Estimated Blood Loss (mls): 10 Instrument used (Debridements only): #15 blade scalpel, scissors and forceps Operative Report Dictated: Yes
--- NOTE | 2017-12-06 15:12 | OP ---
DATE OF OPERATION: 12/06/2017 PREOPERATIVE DIAGNOSIS: Left foot diabetic foot ulcer with chronic osteomyelitis. POSTOPERATIVE DIAGNOSIS: Left foot diabetic foot ulcer with chronic osteomyelitis. PROCEDURE: Left foot debridement and lavage with bone biopsy. SURGEON: Beka Aguirre DPM ANESTHESIOLOGIST: None. ANESTHESIA: IV sedation with local. HEMOSTASIS: Surgical dissection. PATHOLOGY: Bone, left foot. COMPLICATIONS: None. The patient was brought to the operating room and placed on the operating table in the supine position. Following induction of IV sedation, local anesthesia was achieved utilizing 10 mL of 2% lidocaine plain. The left foot was scrubbed, prepped, and draped in the usual sterile fashion. Attention was directed to the left lateral foot where a diabetic foot ulcer probing to 5th metatarsal base was visualized and appreciated. I began by performing an excisional debridement of the left foot diabetic ulcer to the level of bone utilizing a sterile 15 blade, scissors, and forceps. All devitalized inflammatory tissue was removed from the ulcer site. A soft tissue wound culture was obtained. Healthy granular tissue persisted. Next, I directed my attention to the exposed remnant 5th metatarsal stump. A 2.5-cm linear longitudinal incision was made proximal to the ulcer to visualize the base of the 5th metatarsal which was noted to be hypertrophied and fragmented. The base of the 5th metatarsal was carefully freed. All soft tissue and ligamentous attachments were resected, and the remnant 5th metatarsal was removed from the operative field. A section of the bone was portioned off for bone culture, and the remainder was removed for bone pathology. The surgical site was then copiously irrigated with sterile saline mixed with bacitracin. The incision was loosely coapted utilizing 3-0 nylon in a retention-suture fashion. The remainder was packed utilizing 1/4-inch Iodoform packing. Following conclusion of the procedure, the surgical site was covered with Xeroform and a sterile compressive dressing was applied to the left foot consisting of sterile gauze, Cody, Kerlix, and an Mook wrap. The patient tolerated the procedure and anesthesia well without complications. He was transferred from the operating room to the recovery unit with vital signs stable and neurovasculature intact to the left foot. SYDNEY RONDON/[id number]
[2017-12-06] MEDS: DEXTROSE 5%-0.45% SALINE 1,000 ML IV SCH (15:32)
[2017-12-06] MEDS: ATORVASTATIN CA 10 MG TABLET (FP) PO SCH (21:50)
[2017-12-06] MEDS: INSULIN (LEVEMIR) 100 UNITS/ML UNITS SQ SCH (21:50)
[2017-12-07] MEDS: DEXTROSE 5%-0.45% SALINE 1,000 ML IV SCH (05:00)
[2017-12-07] MEDS: INSULIN (LEVEMIR) 100 UNITS/ML UNITS SQ SCH ×2 (06:31→21:29)
[2017-12-07] MEDS: INSULIN SLIDING SCALE (NOVOLOG) 1 VIAL SQ SCH ×4 (06:32→21:32)
[2017-12-07] MEDS ORDERED: INSULIN (NOVOLOG) ASPART 100 UNITS/ML 10ML VIAL ONE ×2 (06:44→21:08)
[2017-12-07] MEDS ORDERED: INSULIN (LEVEMIR) 100 UNITS/ML UNITS SQ SCH (07:00)
[2017-12-07 08:10] LABS: BASO % 0.5 % (0-2.0); EOS % 0.1 % (0-4.5); HEMATOCRIT 21.1 % (35.4-49); HEMOGLOBIN 7.1 GM/dL (11.7-16.9); LYMPH % 12.5 % (8-40); MCH 30.3 pg (25.7-33.7); MCHC 33.7 g/dl (32.0-35.9); MEAN PLT VOLUME 8.6 fl (7.5-11.1); NEUT % 74.9 % (42.8-82.8); PLATELET COUNT 94 K/MM3 (134-434); RBC 2.35 M/mm3 (4.00-5.60); RDW 17.1 % (11.9-15.9); WHITE BLOOD COUNT 3.9 K/mm3 (4.0-10.0)
[2017-12-07 08:38] LABS: CHLORIDE 108 mmol/L (98-107); POTASSIUM 4.5 mmol/L (3.5-5.1); SODIUM 140 mmol/L (136-145)
[2017-12-07 08:56] LABS: ALBUMIN 1.8 g/dl (3.4-5.0); ALK PHOS 204 U/L (45-117); ANION GAP 7 (8-16); BILIRUBIN,TOTAL 0.8 mg/dL (0.2-1.0); BLOOD UREA NITROGEN 25 mg/dL (7-18); CALCIUM 7.7 mg/dL (8.5-10.1); CO2 25 mmol/L (21-32); CREATININE 1.1 mg/dL (0.7-1.3); GLUCOSE,RANDOM 141 mg/dL (74-106); SGOT/AST 45 U/L (15-37); SGPT/ALT 26 U/L (12-78); TOT PROT 5.9 g/dl (6.4-8.2)
[2017-12-07] MEDS ORDERED: PT OWN MED DRAWER 7, Y5N ONE ×2 (09:03→21:10)
[2017-12-07] MEDS: RIFAXIMIN 550 MG TABLET (UD) PO SCH ×2 (09:08→21:32)
[2017-12-07] MEDS: FUROSEMIDE 40 MG TABLET (FP) PO SCH (09:08)
[2017-12-07] MEDS: NADOLOL 20 MG TABLET (FP) PO SCH (09:08)
[2017-12-07] MEDS: HEPARIN NA (PORCINE) 5,000 UNITS/ML 1ML VIAL SQ SCH ×2 (09:08→21:29)
[2017-12-07] MEDS: SPIRONOLACTONE 25 MG TABLET (FP) PO SCH (09:10)
[2017-12-07] MEDS ORDERED: SPIRONOLACTONE 25 MG TABLET (FP) PO SCH (10:00)
[2017-12-07] MEDS ORDERED: FUROSEMIDE 40 MG TABLET (FP) PO SCH (10:00)
[2017-12-07] MEDS: ERTAPENEM SODIUM 1 GM in SODIUM CHLORIDE 50 ML IVPB SCH (10:16)
--- NOTE | 2017-12-07 11:12 | PN ---
Progress Note (short form) - Note Progress Note: Podiatry F/U: Seen/evaluated at bedside, NAD. Denies F/V/N/C/SOB/CP. Afebrile, VSS. S/p L foot debridement and bone biopsy POD #1. GEORGE: L foot: lateral fifth ray diabetic ulcer with sutures coapted proximally, no dehiscence noted, fibrogranular wound base, no purulence, no fluctuance, no streaking cellulitis, no signs of active infection. OR Cx: pending Imp: 57 year old DM M s/p L foot debridement and bone biopsy POD#1 1. DSD L foot 2. Will order Dakins for irrigation 3. IV abx per ID 4. F/u OR cultures 5. Will need reinstatement of wound vac. Medium black granufoam, set at 125 mmHg continuous. 6. Upon discharge will f/u with me in wound healing center Angel Aguirre DPM
--- NOTE | 2017-12-07 11:45 | PN ---
Progress Note, Physician Chief Complaint: s/p left foot debridment and bone biopsy under MAC History of Present Illness: post op day one - Current Medication List Current Medications: Active Medications Atorvastatin Calcium (Lipitor -) 10 mg PO HS [facility] Last Admin: 12/06/17 21:50 Dose: 10 mg Furosemide (Lasix -) 40 mg PO DAILY [facility] Last Admin: 12/07/17 09:08 Dose: 40 mg Heparin Sodium (Porcine) (Heparin -) 5,000 unit SQ BID [facility] Last Admin: 12/07/17 09:08 Dose: 5,000 unit Dextrose/Sodium Chloride (D5-1/2ns -) 1,000 mls @ 75 mls/hr IV ASDIR [facility] Last Admin: 12/07/17 05:00 Dose: 75 mls/hr Ertapenem 1 gm/ Sodium (Chloride) 50 mls @ 100 mls/hr IVPB DAILY [facility] Last Admin: 12/07/17 10:16 Dose: 100 mls/hr Insulin Aspart (Novolog Vial Sliding Scale -) 1 vial SQ ACHS [facility]; Protocol Last Admin: 12/07/17 11:13 Dose: 8 units Insulin Detemir (Levemir Vial) 10 units SQ HS [facility] Last Admin: 12/06/17 21:50 Dose: 10 unit Insulin Detemir (Levemir Vial) 25 units SQ ACBK [facility] Last Admin: 12/07/17 06:31 Dose: 25 unit Lactulose (Cephulac (Oral Use)) 20 gm PO Q8H PRN PRN Reason: CONSTIPATION Nadolol (Corgard -) 20 mg PO DAILY [facility] Last Admin: 12/07/17 09:08 Dose: 20 mg Oxycodone HCl (Roxicodone -) 5 mg PO Q4H PRN PRN Reason: PAIN LEVEL 1-5 Rifaximin (Xifaxan -) 550 mg PO BID [facility] Last Admin: 12/07/17 09:08 Dose: 550 mg Sodium Hypochlorite (Dakin's Solution 0.25% (Half-Strength) -) 1 applic TP DAILY [facility] Spironolactone (Aldactone -) 50 mg PO DAILY [facility] Last Admin: 12/07/17 09:10 Dose: 50 mg - Objective Vital Signs: Vital Signs Temperature 97.4 F L 12/07/17 10:00 Pulse Rate 58 L 12/07/17 10:00 Respiratory Rate 12/07/17 10:00 Blood Pressure 106/56 12/07/17 10:00 O2 Sat by Pulse Oximetry (%) 100 12/06/17 20:19 Constitutional: Yes: Well Nourished Cardiovascular: Yes: WNL Respiratory: Yes: WNL Gastrointestinal: Yes: WNL Labs: CBC, BMP 12/07/17 06:10 12/07/17 06:10 INR, PTT INR 1.17 (0.82-1.09) H 12/06/17 06:00 Assessment/Plan No adverse effects of anesthetic, tolerating PO, dept of anesthesia will sign off care at this time
--- NOTE | 2017-12-07 11:52 | PN ---
Progress Note, Physician History of Present Illness: patient s/p bone biopsy all cx send patient with no complaints - Current Medication List Current Medications: Active Medications Atorvastatin Calcium (Lipitor -) 10 mg PO HS [facility] Last Admin: 12/06/17 21:50 Dose: 10 mg Furosemide (Lasix -) 40 mg PO DAILY [facility] Last Admin: 12/07/17 09:08 Dose: 40 mg Heparin Sodium (Porcine) (Heparin -) 5,000 unit SQ BID [facility] Last Admin: 12/07/17 09:08 Dose: 5,000 unit Dextrose/Sodium Chloride (D5-1/2ns -) 1,000 mls @ 75 mls/hr IV ASDIR [facility] Last Admin: 12/07/17 05:00 Dose: 75 mls/hr Ertapenem 1 gm/ Sodium (Chloride) 50 mls @ 100 mls/hr IVPB DAILY [facility] Last Admin: 12/07/17 10:16 Dose: 100 mls/hr Insulin Aspart (Novolog Vial Sliding Scale -) 1 vial SQ ACHS [facility]; Protocol Last Admin: 12/07/17 11:13 Dose: 8 units Insulin Detemir (Levemir Vial) 10 units SQ HS [facility] Last Admin: 12/06/17 21:50 Dose: 10 unit Insulin Detemir (Levemir Vial) 25 units SQ ACBK [facility] Last Admin: 12/07/17 06:31 Dose: 25 unit Lactulose (Cephulac (Oral Use)) 20 gm PO Q8H PRN PRN Reason: CONSTIPATION Nadolol (Corgard -) 20 mg PO DAILY [facility] Last Admin: 12/07/17 09:08 Dose: 20 mg Oxycodone HCl (Roxicodone -) 5 mg PO Q4H PRN PRN Reason: PAIN LEVEL 1-5 Rifaximin (Xifaxan -) 550 mg PO BID [facility] Last Admin: 12/07/17 09:08 Dose: 550 mg Sodium Hypochlorite (Dakin's Solution 0.25% (Half-Strength) -) 1 applic TP DAILY [facility] Spironolactone (Aldactone -) 50 mg PO DAILY [facility] Last Admin: 12/07/17 09:10 Dose: 50 mg - Objective Vital Signs: Vital Signs Temperature 97.4 F L 12/07/17 10:00 Pulse Rate 58 L 12/07/17 10:00 Respiratory Rate 18 12/07/17 10:00 Blood Pressure 106/56 12/07/17 10:00 O2 Sat by Pulse Oximetry (%) 100 12/06/17 20:19 Constitutional: Yes: No Distress, Calm Cardiovascular: Yes: Regular Rate and Rhythm Respiratory: Yes: Regular, CTA Bilaterally Gastrointestinal: Yes: Normal Bowel Sounds Musculoskeletal: Yes: Other Extremities: Yes: Other Wound/Incision: Yes: Dressing Dry and Intact Neurological: Yes: Alert, Oriented Psychiatric: Yes: Alert, Oriented Labs: CBC, BMP 12/07/17 06:10 12/07/17 06:10 INR, PTT INR 1.17 (0.82-1.09) H 12/06/17 06:00 Assessment/Plan Problem List - Problems (1) Diabetic ulcer of left foot Code(s): E11.621 - TYPE 2 DIABETES MELLITUS WITH FOOT ULCER; L97.529 - NON- PRESSURE CHRONIC ULCER OTH PRT LEFT FOOT W UNSP SEVERITY Qualifiers: Diabetic foot ulcer location: other Diabetes mellitus type: type 2 Non- pressure ulcer stage: with other severity Qualified Code(s): E11.621 - Type 2 diabetes mellitus with foot ulcer; L97.528 - Non-pressure chronic ulcer of other part of left foot with other specified severity (2) DM Diabetes mellitus Code(s): E11.9 - TYPE 2 DIABETES MELLITUS WITHOUT COMPLICATIONS (3) Ascites Code(s): R18.8 - OTHER ASCITES (4) Liver cirrhosis Code(s): K74.60 - UNSPECIFIED CIRRHOSIS OF LIVER plan continue current abx await for the final cx report will decide after that further management
--- NOTE | 2017-12-07 12:16 | PN ---
Progress Note (short form) - Note Progress Note: Comfortable. Afebrile. Pain-free. AAO x 3. Abdomen soft, non-tender. S/p RLE debridement yesterday. Continue current care. Will follow. Problem List - Problems (1) Gastric varices without bleeding Code(s): I86.4 - GASTRIC VARICES (2) Ascites Code(s): R18.8 - OTHER ASCITES (3) Diabetic ulcer of left foot Code(s): E11.621 - TYPE 2 DIABETES MELLITUS WITH FOOT ULCER; L97.529 - NON- PRESSURE CHRONIC ULCER OTH PRT LEFT FOOT W UNSP SEVERITY Qualifiers: Diabetic foot ulcer location: other Diabetes mellitus type: type 2 Non- pressure ulcer stage: with other severity Qualified Code(s): E11.621 - Type 2 diabetes mellitus with foot ulcer; L97.528 - Non-pressure chronic ulcer of other part of left foot with other specified severity (4) Wound, open, foot Code(s): S91.309A - UNSPECIFIED OPEN WOUND, UNSPECIFIED FOOT, INITIAL ENCOUNTER Qualifiers: Encounter type: subsequent encounter Laterality: left Qualified Code(s): S91.302D - Unspecified open wound, left foot, subsequent encounter (5) HCC (hepatocellular carcinoma) Code(s): C22.0 - LIVER CELL CARCINOMA (6) Portal hypertension with esophageal varices Code(s): K76.6 - PORTAL HYPERTENSION; I85.00 - ESOPHAGEAL VARICES WITHOUT BLEEDING
--- NOTE | 2017-12-07 13:29 | PN ---
Progress Note, Physician Chief Complaint: diabetic foot ulcer History of Present Illness: Had debridement yesterday Operative Date: 12/06/17 Pre-Operative Diagnosis: L foot diabetic foot ulcer and chronic osteomyelitis Operation: L foot debridement and lavage with bone biopsy Post-Operative Diagnosis: Same as Pre-op Surgeon: Beka Aguirre Seen by ID On IV abx Awaiting cultures PICC line - Current Medication List Current Medications: Active Medications Atorvastatin Calcium (Lipitor -) 10 mg PO HS [facility] Last Admin: 12/06/17 21:50 Dose: 10 mg Furosemide (Lasix -) 40 mg PO DAILY [facility] Last Admin: 12/07/17 09:08 Dose: 40 mg Heparin Sodium (Porcine) (Heparin -) 5,000 unit SQ BID [facility] Last Admin: 12/07/17 09:08 Dose: 5,000 unit Dextrose/Sodium Chloride (D5-1/2ns -) 1,000 mls @ 75 mls/hr IV ASDIR [facility] Last Admin: 12/07/17 05:00 Dose: 75 mls/hr Ertapenem 1 gm/ Sodium (Chloride) 50 mls @ 100 mls/hr IVPB DAILY [facility] Last Admin: 12/07/17 10:16 Dose: 100 mls/hr Insulin Aspart (Novolog Vial Sliding Scale -) 1 vial SQ ACHS [facility]; Protocol Last Admin: 12/07/17 11:13 Dose: 8 units Insulin Detemir (Levemir Vial) 10 units SQ HS [facility] Last Admin: 12/06/17 21:50 Dose: 10 unit Insulin Detemir (Levemir Vial) 25 units SQ ACBK [facility] Last Admin: 12/07/17 06:31 Dose: 25 unit Lactulose (Cephulac (Oral Use)) 20 gm PO Q8H PRN PRN Reason: CONSTIPATION Nadolol (Corgard -) 20 mg PO DAILY [facility] Last Admin: 12/07/17 09:08 Dose: 20 mg Oxycodone HCl (Roxicodone -) 5 mg PO Q4H PRN PRN Reason: PAIN LEVEL 1-5 Rifaximin (Xifaxan -) 550 mg PO BID [facility] Last Admin: 12/07/17 09:08 Dose: 550 mg Sodium Hypochlorite (Dakin's Solution 0.25% (Half-Strength) -) 1 applic TP DAILY [facility] Spironolactone (Aldactone -) 50 mg PO DAILY [facility] Last Admin: 12/07/17 09:10 Dose: 50 mg - Objective Vital Signs: Vital Signs Temperature 97.4 F L 12/07/17 10:00 Pulse Rate 58 L 12/07/17 10:00 Respiratory Rate 12/07/17 10:00 Blood Pressure 106/56 12/07/17 10:00 O2 Sat by Pulse Oximetry (%) 100 12/06/17 20:19 Constitutional: Yes: Well Nourished, No Distress, Calm Cardiovascular: Yes: Regular Rate and Rhythm Respiratory: Yes: Regular Gastrointestinal: Yes: Normal Bowel Sounds, Soft Musculoskeletal: Yes: WNL Wound/Incision: Yes: Dressing Dry and Intact Neurological: Yes: Alert, Oriented Psychiatric: Yes: Alert, Oriented Labs: CBC, BMP 12/07/17 06:10 12/07/17 06:10 INR, PTT INR 1.17 (0.82-1.09) H 12/06/17 06:00 Problem List - Problems (1) Diabetic ulcer of left foot Assessment/Plan: -ID consult -IV abx -wound care -Seen by Podiatry -Await cultures Code(s): E11.621 - TYPE 2 DIABETES MELLITUS WITH FOOT ULCER; L97.529 - NON- PRESSURE CHRONIC ULCER OTH PRT LEFT FOOT W UNSP SEVERITY Qualifiers: Diabetic foot ulcer location: other Diabetes mellitus type: type 2 Non- pressure ulcer stage: with other severity Qualified Code(s): E11.621 - Type 2 diabetes mellitus with foot ulcer; L97.528 - Non-pressure chronic ulcer of other part of left foot with other specified severity (2) Gastric varices without bleeding Assessment/Plan: -Seen by GI -On Nadolol Code(s): I86.4 - GASTRIC VARICES (3) DM Diabetes mellitus Assessment/Plan: -BGM AC HS -Insulin novolog and levemir -diabetic diet -RD consult Code(s): E11.9 - TYPE 2 DIABETES MELLITUS WITHOUT COMPLICATIONS (4) Anemia Assessment/Plan: -PRBC x 1 -Furosemide post PRBC -Repeat labs in AM Code(s): D64.9 - ANEMIA, UNSPECIFIED Assessment/Plan see problem list
[2017-12-07] MEDS ORDERED: FUROSEMIDE 40 MG/4 ML INJECTABLE VIAL IVPUSH ONE (13:33)
[2017-12-07] MEDS: oxyCODONE HCL 5 MG TABLET PO PRN ×2 (15:07→21:36)
[2017-12-07] MEDS: ATORVASTATIN CA 10 MG TABLET (FP) PO SCH (21:32)
[2017-12-08] MEDS: INSULIN SLIDING SCALE (NOVOLOG) 1 VIAL SQ SCH ×4 (06:03→21:22)
[2017-12-08] MEDS: INSULIN (LEVEMIR) 100 UNITS/ML UNITS SQ SCH ×2 (06:31→21:20)
[2017-12-08] MEDS ORDERED: INSULIN (LEVEMIR) 100 UNITS/ML UNITS SQ ONE (06:38)
[2017-12-08] MEDS ORDERED: INSULIN (NOVOLOG) ASPART 100 UNITS/ML 10ML VIAL ONE ×3 (06:38→21:21)
[2017-12-08] MEDS: oxyCODONE HCL 5 MG TABLET PO PRN ×3 (07:41→20:29)
[2017-12-08 08:20] LABS: BASO % 0.5 % (0-2.0); EOS % 0.5 % (0-4.5); HEMATOCRIT 26.3 % (35.4-49); HEMOGLOBIN 9.2 GM/dL (11.7-16.9); LYMPH % 12.8 % (8-40); MCH 31.3 pg (25.7-33.7); MEAN CELL VOLUME 89.4 fl (80-96); MONO % 11.1 % (3.8-10.2); NEUT % 75.1 % (42.8-82.8); PLATELET COUNT 108 K/MM3 (134-434); RBC 2.94 M/mm3 (4.00-5.60); RDW 16.7 % (11.9-15.9); WHITE BLOOD COUNT 6.6 K/mm3 (4.0-10.0)
--- NOTE | 2017-12-08 08:29 | PN ---
Progress Note, Physician Chief Complaint: diabetic foot ulcer History of Present Illness: Had debridement yesterday Operative Date: 12/06/17 Pre-Operative Diagnosis: L foot diabetic foot ulcer and chronic osteomyelitis Operation: L foot debridement and lavage with bone biopsy Post-Operative Diagnosis: Same as Pre-op Surgeon: Beka Aguirre Seen by ID On IV abx Awaiting cultures PICC line wants to go home - Current Medication List Current Medications: Active Medications Atorvastatin Calcium (Lipitor -) 10 mg PO HS [facility] Last Admin: 12/07/17 21:32 Dose: 10 mg Furosemide (Lasix -) 40 mg PO DAILY [facility] Last Admin: 12/07/17 09:08 Dose: 40 mg Heparin Sodium (Porcine) (Heparin -) 5,000 unit SQ BID [facility] Last Admin: 12/07/17 21:29 Dose: 5,000 unit Ertapenem 1 gm/ Sodium (Chloride) 50 mls @ 100 mls/hr IVPB DAILY [facility] Last Admin: 12/07/17 10:16 Dose: 100 mls/hr Insulin Aspart (Novolog Vial Sliding Scale -) 1 vial SQ [facility]; Protocol Last Admin: 12/08/17 06:03 Dose: Not Given Insulin Detemir (Levemir Vial) 10 units SQ HS [facility] Last Admin: 12/07/17 21:29 Dose: 10 unit Insulin Detemir (Levemir Vial) 25 units SQ ACBK [facility] Last Admin: 12/08/17 06:31 Dose: 25 unit Lactulose (Cephulac (Oral Use)) 20 gm PO Q8H PRN PRN Reason: CONSTIPATION Nadolol (Corgard -) 20 mg PO DAILY [facility] Last Admin: 12/07/17 09:08 Dose: 20 mg Oxycodone HCl (Roxicodone -) 5 mg PO Q4H PRN PRN Reason: PAIN LEVEL 1-5 Last Admin: 12/08/17 07:41 Dose: 5 mg Rifaximin (Xifaxan -) 550 mg PO BID [facility] Last Admin: 12/07/17 21:32 Dose: 550 mg Sodium Hypochlorite (Dakin's Solution 0.25% (Half-Strength) -) 1 applic TP DAILY [facility] Spironolactone (Aldactone -) 50 mg PO DAILY [facility] Last Admin: 12/07/17 09:10 Dose: 50 mg - Objective Vital Signs: Vital Signs Temperature 98.4 F 12/08/17 06:16 Pulse Rate 49 L 12/08/17 06:16 Respiratory Rate 20 12/08/17 06:16 Blood Pressure 99/53 12/08/17 06:16 O2 Sat by Pulse Oximetry (%) 97 12/07/17 20:25 Constitutional: Yes: Well Nourished, No Distress, Calm Cardiovascular: Yes: Regular Rate and Rhythm Respiratory: Yes: Regular Gastrointestinal: Yes: Normal Bowel Sounds, Soft Musculoskeletal: Yes: WNL Extremities: Yes: WNL Wound/Incision: Yes: Dressing Dry and Intact Neurological: Yes: Alert, Oriented Psychiatric: Yes: Alert, Oriented Labs: CBC, BMP 12/08/17 08:08 INR, PTT INR 1.17 (0.82-1.09) H 12/06/17 06:00 Problem List - Problems (1) Diabetic ulcer of left foot Assessment/Plan: -ID consult -IV abx -wound care -Seen by Podiatry -Await cultures Code(s): E11.621 - TYPE 2 DIABETES MELLITUS WITH FOOT ULCER; L97.529 - NON- PRESSURE CHRONIC ULCER OTH PRT LEFT FOOT W UNSP SEVERITY Qualifiers: Diabetic foot ulcer location: other Diabetes mellitus type: type 2 Non- pressure ulcer stage: with other severity Qualified Code(s): E11.621 - Type 2 diabetes mellitus with foot ulcer; L97.528 - Non-pressure chronic ulcer of other part of left foot with other specified severity (2) Gastric varices without bleeding Assessment/Plan: -Seen by GI -On Nadolol Code(s): I86.4 - GASTRIC VARICES (3) DM Diabetes mellitus Assessment/Plan: -BGM AC HS -Insulin novolog and levemir -diabetic diet -RD consult Code(s): E11.9 - TYPE 2 DIABETES MELLITUS WITHOUT COMPLICATIONS (4) Anemia Assessment/Plan: -PRBC x 1 -Furosemide post PRBC -Repeat labs in AM Code(s): D64.9 - ANEMIA, UNSPECIFIED Assessment/Plan see problem list
[2017-12-08 08:55] LABS: ALK PHOS 237 U/L (45-117); ANION GAP 7 (8-16); BILIRUBIN,TOTAL 1.1 mg/dL (0.2-1.0); BLOOD UREA NITROGEN 25 mg/dL (7-18); CALCIUM 8.2 mg/dL (8.5-10.1); CHLORIDE 105 mmol/L (98-107); CO2 26 mmol/L (21-32); CREATININE 1.4 mg/dL (0.7-1.3); GLUCOSE,RANDOM 123 mg/dL (74-106); POTASSIUM 4.3 mmol/L (3.5-5.1); SGOT/AST 47 U/L (15-37); SODIUM 138 mmol/L (136-145); TOT PROT 6.8 g/dl (6.4-8.2)
[2017-12-08 08:56] LABS: SGPT/ALT 29 U/L (12-78)
[2017-12-08] MEDS: HEPARIN NA (PORCINE) 5,000 UNITS/ML 1ML VIAL SQ SCH ×2 (09:12→21:20)
[2017-12-08] MEDS: FUROSEMIDE 40 MG TABLET (FP) PO SCH (09:12)
[2017-12-08] MEDS: SPIRONOLACTONE 25 MG TABLET (FP) PO SCH (09:12)
[2017-12-08] MEDS: RIFAXIMIN 550 MG TABLET (UD) PO SCH ×2 (09:14→21:22)
[2017-12-08] MEDS: ERTAPENEM SODIUM 1 GM in SODIUM CHLORIDE 50 ML IVPB SCH (09:17)
--- NOTE | 2017-12-08 10:30 | PN ---
Progress Note (short form) - Note Progress Note: Podiatry: Seen/evaluated at bedside NAD. Mild pain which is controlled to L foot, denies F/V/N/C/SOB/CP. Afebrile, VSS. S/p L foot debridement with bone biopsy POD#2. GEORGE: L foot: sutures well coapted proximal lateral fifth ray, no dehiscence noted. Fifth ray diabetic ulcer fibrogranular base, regular borders, increased granulation tissue, no purulence, no fluctuance, no streaking cellulitis, no soft tissue crepitus, no signs of active infection. OR Cx: MRSA Imp: 57 year old DM M s/p L foot debridement and bone bx POD#2 1. IV abx per ID 2. Dakins irrigation at bedside. Dakins wet to dry applied to L foot. 3. Partial WB L heel with surgical offloading shoe. 4. Will reinstate wound vac and home nursing services upon discharge. Wound vac black granufoam 125 mmHg continuous 3x/week. 5. Upon discharge, will f/u with me in wound healing center 12/13. Angel Aguirre DPM
[2017-12-08] MEDS: SODIUM HYPOCHLORITE 0.25%- 473 ML BULK BOTTLE TP SCH (11:00)
[2017-12-08] MEDS: NADOLOL 20 MG TABLET (FP) PO SCH (11:02)
[2017-12-08 11:14] LABS: PLATELET ESTIMATE DECREASED
[2017-12-08] MEDS ORDERED: ONDANSETRON 4 MG/2 ML VIAL ONE (14:41)
--- NOTE | 2017-12-08 14:50 | PN ---
Progress Note, Physician History of Present Illness: patient s/p bone biopsy cx reports noted - Current Medication List Current Medications: Active Medications Atorvastatin Calcium (Lipitor -) 10 mg PO HS [facility] Last Admin: 12/07/17 21:32 Dose: 10 mg Furosemide (Lasix -) 40 mg PO DAILY [facility] Last Admin: 12/08/17 09:12 Dose: 40 mg Heparin Sodium (Porcine) (Heparin -) 5,000 unit SQ BID [facility] Last Admin: 12/08/17 09:12 Dose: 5,000 unit Ertapenem 1 gm/ Sodium (Chloride) 50 mls @ 100 mls/hr IVPB DAILY [facility] Last Admin: 12/08/17 09:17 Dose: 100 mls/hr Insulin Aspart (Novolog Vial Sliding Scale -) 1 vial SQ ACHS [facility]; Protocol Last Admin: 12/08/17 12:10 Dose: 2 units Insulin Detemir (Levemir Vial) 10 units SQ HS [facility] Last Admin: 12/07/17 21:29 Dose: 10 unit Insulin Detemir (Levemir Vial) 25 units SQ ACBK [facility] Last Admin: 12/08/17 06:31 Dose: 25 unit Lactulose (Cephulac (Oral Use)) 20 gm PO Q8H PRN PRN Reason: CONSTIPATION Nadolol (Corgard -) 20 mg PO DAILY [facility] Last Admin: 12/08/17 11:02 Dose: 20 mg Oxycodone HCl (Roxicodone -) 5 mg PO Q4H PRN PRN Reason: PAIN LEVEL 1-5 Last Admin: 12/08/17 07:41 Dose: 5 mg Rifaximin (Xifaxan -) 550 mg PO BID [facility] Last Admin: 12/08/17 09:14 Dose: 550 mg Sodium Hypochlorite (Dakin's Solution 0.25% (Half-Strength) -) 1 applic TP DAILY [facility] Last Admin: 12/08/17 11:00 Dose: 1 appful Spironolactone (Aldactone -) 50 mg PO DAILY [facility] Last Admin: 12/08/17 09:12 Dose: 50 mg - Objective Vital Signs: Vital Signs Temperature 98.0 F 12/08/17 09:00 Pulse Rate 48 L 12/08/17 11:50 Respiratory Rate 20 12/08/17 09:00 Blood Pressure 115/63 12/08/17 11:50 O2 Sat by Pulse Oximetry (%) 100 12/08/17 09:00 Constitutional: Yes: No Distress, Calm Cardiovascular: Yes: Regular Rate and Rhythm Respiratory: Yes: Regular, CTA Bilaterally Gastrointestinal: Yes: Normal Bowel Sounds, Soft Musculoskeletal: Yes: WNL Extremities: Yes: Other Wound/Incision: Yes: Dressing Dry and Intact Neurological: Yes: Alert, Oriented Psychiatric: Yes: Alert, Oriented Labs: CBC, BMP 12/08/17 08:08 12/08/17 08:08 INR, PTT INR 1.17 (0.82-1.09) H 12/06/17 06:00 Assessment/Plan Problem List - Problems (1) Diabetic ulcer of left foot Code(s): E11.621 - TYPE 2 DIABETES MELLITUS WITH FOOT ULCER; L97.529 - NON- PRESSURE CHRONIC ULCER OTH PRT LEFT FOOT W UNSP SEVERITY Qualifiers: Diabetic foot ulcer location: other Diabetes mellitus type: type 2 Non- pressure ulcer stage: with other severity Qualified Code(s): E11.621 - Type 2 diabetes mellitus with foot ulcer; L97.528 - Non-pressure chronic ulcer of other part of left foot with other specified severity (2) DM Diabetes mellitus Code(s): E11.9 - TYPE 2 DIABETES MELLITUS WITHOUT COMPLICATIONS (3) Ascites Code(s): R18.8 - OTHER ASCITES (4) Liver cirrhosis Code(s): K74.60 - UNSPECIFIED CIRRHOSIS OF LIVER plan patients bone cx noted stopped ertapenam started vanco await for sensitivities once we have that will decide duration of abx
--- NOTE | 2017-12-08 14:57 | PATH ---
Surgical Pathology Report Patient Name: JAYSON STRAUSS Med. Rec. #: [id number] /Age/Gender: 1960 (Age: 57) / M Account: [id number] Location: [facility] MED/SURG Taken: 12/06/2017 Received: 12/07/2017 Reported: 12/08/2017 Physicians: Beka Aguirre DPM PHYSICIAN EMERGENCY DEPT Specimen(s) Received A: BONE LEFT FOOT B: BONE LEFT FOOT Clinical History Diabetic ulcer, chronic osteomyelitis left foot Final Diagnosis A. BONE, FOOT, LEFT, BIOPSY: BONE WITH ACUTE INFLAMMATION, GRANULATION TISSUE, AND ACUTE OSTEOMYELITIS. B. BONE, FOOT, LEFT, BIOPSY: BONE WITH REMODELING AND REACTIVE CHANGES CONSISTENT WITH CHRONIC OSTEOMYELITIS. DENSE FIBROCONNECTIVE TISSUE AND SKELETAL MUSCLE PRESENT. Electronically Signed Chrissie Cassidy M.D. Gross Description A. Received fresh labeled "culture sensitivity bone left foot," is a 1.3 x 1.0 x 0.3 cm aggregate of mcgill bone fragments. The specimen is brought to microbiology for culture. The remainder of the specimen is entirely submitted in one cassette, following decalcification. B. Received in formalin labeled "bone left foot," is a 4.0 x 2.3 x 1.7 cm mcgill-yellow portion of bone. Sectioning reveals yellow, hard trabecular bone. Service Order Expediter sections are submitted in 3 cassettes as follows: [id number] ends of bone, following decalcification; 3-central portion of bone, following decalcification. /12/07/201712/07/2017
[2017-12-08] MEDS ORDERED: VANCOMYCIN 1,250 MG in DEXTROSE 5%-WATER - 250 ML IVPB SCH (18:00)
[2017-12-08] MEDS ORDERED: PT OWN MED DRAWER 7, Y5N ONE (20:23)
[2017-12-08] MEDS: ATORVASTATIN CA 10 MG TABLET (FP) PO SCH (21:20)
[2017-12-09] MEDS: INSULIN SLIDING SCALE (NOVOLOG) 1 VIAL SQ SCH ×3 (06:27→16:37)
[2017-12-09] MEDS: INSULIN (LEVEMIR) 100 UNITS/ML UNITS SQ SCH (06:33)
[2017-12-09] MEDS ORDERED: INSULIN (NOVOLOG) ASPART 100 UNITS/ML 10ML VIAL ONE ×2 (06:39→11:33)
[2017-12-09] MEDS: oxyCODONE HCL 5 MG TABLET PO PRN ×2 (06:52→11:25)
--- NOTE | 2017-12-09 09:20 | PN ---
Progress Note, Physician Chief Complaint: diabetic foot ulcer History of Present Illness: Operative Date: 12/06/17 Pre-Operative Diagnosis: L foot diabetic foot ulcer and chronic osteomyelitis Operation: L foot debridement and lavage with bone biopsy Post-Operative Diagnosis: Same as Pre-op Surgeon: Beka Aguirre Seen by ID On IV abx Awaiting sensitivities PICC line wants to go home - Current Medication List Current Medications: Active Medications Atorvastatin Calcium (Lipitor -) 10 mg PO HS [facility] Last Admin: 12/08/17 21:20 Dose: 10 mg Furosemide (Lasix -) 40 mg PO DAILY [facility] Last Admin: 12/08/17 09:12 Dose: 40 mg Heparin Sodium (Porcine) (Heparin -) 5,000 unit SQ BID [facility] Last Admin: 12/08/17 21:20 Dose: 5,000 unit Vancomycin HCl 1,250 mg/ (Dextrose) 250 mls @ 250 mls/2 hr IVPB DAILY@1800 [facility] ; Protocol Last Admin: 12/08/17 18:26 Dose: 250 mls/2 hr Insulin Aspart (Novolog Vial Sliding Scale -) 1 vial SQ ACHS [facility]; Protocol Last Admin: 12/09/17 06:27 Dose: Not Given Insulin Detemir (Levemir Vial) 10 units SQ HS [facility] Last Admin: 12/08/17 21:20 Dose: 10 unit Insulin Detemir (Levemir Vial) 25 units SQ ACBK [facility] Last Admin: 12/09/17 06:33 Dose: 25 unit Lactulose (Cephulac (Oral Use)) 20 gm PO Q8H PRN PRN Reason: CONSTIPATION Nadolol (Corgard -) 20 mg PO DAILY [facility] Last Admin: 12/08/17 11:02 Dose: 20 mg Oxycodone HCl (Roxicodone -) 5 mg PO Q4H PRN PRN Reason: PAIN LEVEL 1-5 Last Admin: 12/09/17 06:52 Dose: 5 mg Rifaximin (Xifaxan -) 550 mg PO BID [facility] Last Admin: 12/08/17 21:22 Dose: 550 mg Sodium Hypochlorite (Dakin's Solution 0.25% (Half-Strength) -) 1 applic TP DAILY [facility] Last Admin: 12/08/17 11:00 Dose: 1 appful Spironolactone (Aldactone -) 50 mg PO DAILY [facility] Last Admin: 12/08/17 09:12 Dose: 50 mg - Objective Vital Signs: Vital Signs Temperature 98.3 F 12/09/17 06:00 Pulse Rate 51 L 12/09/17 06:00 Respiratory Rate 18 12/09/17 06:00 Blood Pressure 104/58 12/09/17 06:00 O2 Sat by Pulse Oximetry (%) 100 12/08/17 20:39 Constitutional: Yes: Well Nourished, No Distress, Calm Cardiovascular: Yes: Regular Rate and Rhythm Respiratory: Yes: Regular Gastrointestinal: Yes: Normal Bowel Sounds, Soft, Abdomen, Obese Musculoskeletal: Yes: WNL Extremities: Yes: WNL Wound/Incision: Yes: Dressing Dry and Intact (Left foot) Neurological: Yes: Alert, Oriented Psychiatric: Yes: Alert, Oriented Labs: CBC, BMP 12/08/17 08:08 12/08/17 08:08 INR, PTT INR 1.17 (0.82-1.09) H 12/06/17 06:00 Problem List - Problems (1) Diabetic ulcer of left foot Assessment/Plan: -ID consult -IV abx -wound care -Seen by Podiatry -Awaiting sensitivities Code(s): E11.621 - TYPE 2 DIABETES MELLITUS WITH FOOT ULCER; L97.529 - NON- PRESSURE CHRONIC ULCER OTH PRT LEFT FOOT W UNSP SEVERITY Qualifiers: Diabetic foot ulcer location: other Diabetes mellitus type: type 2 Non- pressure ulcer stage: with other severity Qualified Code(s): E11.621 - Type 2 diabetes mellitus with foot ulcer; L97.528 - Non-pressure chronic ulcer of other part of left foot with other specified severity (2) Gastric varices without bleeding Assessment/Plan: -Seen by GI -On Nadolol Code(s): I86.4 - GASTRIC VARICES (3) DM Diabetes mellitus Assessment/Plan: -BGM AC HS -Insulin novolog and levemir -diabetic diet -RD consult Code(s): E11.9 - TYPE 2 DIABETES MELLITUS WITHOUT COMPLICATIONS (4) Anemia Assessment/Plan: -PRBC x 1 -Furosemide post PRBC -Repeat labs in AM Code(s): D64.9 - ANEMIA, UNSPECIFIED Assessment/Plan see problem list
[2017-12-09] MEDS ORDERED: PT OWN MED DRAWER 7, Y5N ONE (10:00)
[2017-12-09] MEDS: HEPARIN NA (PORCINE) 5,000 UNITS/ML 1ML VIAL SQ SCH (10:01)
[2017-12-09] MEDS: RIFAXIMIN 550 MG TABLET (UD) PO SCH (10:02)
[2017-12-09] MEDS: FUROSEMIDE 40 MG TABLET (FP) PO SCH (10:02)
[2017-12-09] MEDS: NADOLOL 20 MG TABLET (FP) PO SCH (10:02)
[2017-12-09] MEDS: SPIRONOLACTONE 25 MG TABLET (FP) PO SCH (10:02)
--- NOTE | 2017-12-09 11:25 | PN ---
Progress Note, Physician History of Present Illness: patient stable doing well cx report noted - Current Medication List Current Medications: Active Medications Atorvastatin Calcium (Lipitor -) 10 mg PO HS [facility] Last Admin: 12/08/17 21:20 Dose: 10 mg Furosemide (Lasix -) 40 mg PO DAILY [facility] Last Admin: 12/09/17 10:02 Dose: 40 mg Heparin Sodium (Porcine) (Heparin -) 5,000 unit SQ BID [facility] Last Admin: 12/09/17 10:01 Dose: 5,000 unit Vancomycin HCl 1,250 mg/ (Dextrose) 250 mls @ 250 mls/2 hr IVPB DAILY@1800 [facility] ; Protocol Last Admin: 12/08/17 18:26 Dose: 250 mls/2 hr Insulin Aspart (Novolog Vial Sliding Scale -) 1 vial SQ ACHS [facility]; Protocol Last Admin: 12/09/17 06:27 Dose: Not Given Insulin Detemir (Levemir Vial) 10 units SQ HS [facility] Last Admin: 12/08/17 21:20 Dose: 10 unit Insulin Detemir (Levemir Vial) 25 units SQ ACBK [facility] Last Admin: 12/09/17 06:33 Dose: 25 unit Lactulose (Cephulac (Oral Use)) 20 gm PO Q8H PRN PRN Reason: CONSTIPATION Nadolol (Corgard -) 20 mg PO DAILY [facility] Last Admin: 12/09/17 10:02 Dose: 20 mg Oxycodone HCl (Roxicodone -) 5 mg PO Q4H PRN PRN Reason: PAIN LEVEL 1-5 Last Admin: 12/09/17 06:52 Dose: 5 mg Rifaximin (Xifaxan -) 550 mg PO BID [facility] Last Admin: 12/09/17 10:02 Dose: 550 mg Sodium Hypochlorite (Dakin's Solution 0.25% (Half-Strength) -) 1 applic TP DAILY [facility] Last Admin: 12/08/17 11:00 Dose: 1 appful Spironolactone (Aldactone -) 50 mg PO DAILY [facility] Last Admin: 12/09/17 10:02 Dose: 50 mg - Objective Vital Signs: Vital Signs Temperature 98.3 F 12/09/17 06:00 Pulse Rate 51 L 12/09/17 06:00 Respiratory Rate 18 12/09/17 06:00 Blood Pressure 104/58 12/09/17 06:00 O2 Sat by Pulse Oximetry (%) 100 12/08/17 20:39 Constitutional: Yes: No Distress, Calm Cardiovascular: Yes: Regular Rate and Rhythm Respiratory: Yes: Regular, CTA Bilaterally Gastrointestinal: Yes: Normal Bowel Sounds, Soft Musculoskeletal: Yes: WNL Extremities: Yes: Other Wound/Incision: Yes: Dressing Dry and Intact Neurological: Yes: Alert, Oriented Psychiatric: Yes: Alert, Oriented Labs: CBC, BMP 12/08/17 08:08 12/08/17 08:08 INR, PTT INR 1.17 (0.82-1.09) H 12/06/17 06:00 Assessment/Plan Problem List - Problems (1) Diabetic ulcer of left foot Code(s): E11.621 - TYPE 2 DIABETES MELLITUS WITH FOOT ULCER; L97.529 - NON- PRESSURE CHRONIC ULCER OTH PRT LEFT FOOT W UNSP SEVERITY Qualifiers: Diabetic foot ulcer location: other Diabetes mellitus type: type 2 Non- pressure ulcer stage: with other severity Qualified Code(s): E11.621 - Type 2 diabetes mellitus with foot ulcer; L97.528 - Non-pressure chronic ulcer of other part of left foot with other specified severity (2) DM Diabetes mellitus Code(s): E11.9 - TYPE 2 DIABETES MELLITUS WITHOUT COMPLICATIONS (3) Ascites Code(s): R18.8 - OTHER ASCITES (4) Liver cirrhosis Code(s): K74.60 - UNSPECIFIED CIRRHOSIS OF LIVER plan bone cx result noted patient needs to go on vanco 125gm daily for 5 weeks cbc bmp esr crp weekly follow vanco trough untill it is between 15 to 20 rest as per the team
--- NOTE | 2017-12-09 12:30 | DS ---
Physical Examination Vital Signs: Vital Signs Temperature 98.3 F 12/09/17 06:00 Pulse Rate 51 L 12/09/17 06:00 Respiratory Rate 18 12/09/17 06:00 Blood Pressure 104/58 12/09/17 06:00 O2 Sat by Pulse Oximetry (%) 100 12/08/17 20:39 Constitutional: Yes: Well Nourished, No Distress, Calm Cardiovascular: Yes: Regular Rate and Rhythm Respiratory: Yes: Regular Gastrointestinal: Yes: Normal Bowel Sounds, Soft Musculoskeletal: Yes: WNL Extremities: Yes: WNL Edema: No Wound/Incision: Yes: Dressing Dry and Intact Neurological: Yes: Alert, Oriented Psychiatric: Yes: Alert, Oriented Labs: CBC, BMP 12/08/17 08:08 12/08/17 08:08 Discharge Summary Reason For Visit: HYPERLIPIDEMIA,DM,DIABETIC ULCER OF L FOOT,HYPERTE Current Active Problems Ascites (Acute) Diabetic ulcer of left foot (Acute) Gastric varices without bleeding (Acute) Wound, open, foot (Acute) DM Diabetes mellitus (Chronic) Hyperlipidemia (Chronic) Hypertension (Chronic) Hospital Course: This is a 57 year old male with phx of anemia, HCC, hepatic encephalopathy ( patient is on a liver transplant list), hypertension, hyperlipidemia, CVA, IDDM , gastritis, esophageal varices, L foot wound currently on IV abx via PICC line for osteomyelitis, presenting from wound care visit today. healing of the wound, . seen by dr nguyen last week and he wants to do debridement for tmw Patient completed ampicilin course of four weeks needs another one more week of ertrapenem Condition: Stable - Instructions Diet, Activity, Other Instructions: Reinstate wound vac and home nursing services upon discharge. Wound vac black granufoam 125 mm Hg continuous 3x/week. Vancomycin 1.25 g daily for 5 weeks Check CBC/CMP/ESR/CRP/Vanco level weekly. Keep Vanco level between 15-20. Referrals: Beka Nguyen MD [Staff Physician] - Roxanne Duran MD [Primary Care Provider] - Neil Gasca MD [Non Staff, Medical] - Disposition: VNS/HOME HEALTH CARE - Home Medications Comprehensive Discharge Medication List: Ambulatory Orders Multivitamins [Multivit ([facility] Formulary)] 1 tab PO DAILY 03/02/17 Aspirin [ASA -] 81 mg PO DAILY tab.chew 10/30/16 Atorvastatin Ca [Lipitor] 10 mg PO HS #30 tab 12/11/16 Pantoprazole Sodium [Protonix] 40 mg PO DAILY #30 tab 12/11/16 Ranolazine [Ranexa] 1,000 mg PO Q12H 09/30/17 Lisinopril 10 mg PO DAILY 11/17/17 Nadolol 20 mg PO DAILY 11/17/17 Insulin Sliding Scale [Novolog Vial Sliding Scale -] 0 unit SQ ACHS 11/18/17 Furosemide [Lasix] 40 mg PO DAILY 12/05/17 Insulin (Levemir) [Levemir Vial] 50 units SQ HS 12/05/17 Metformin HCl [Metformin HCl ER] 500 mg PO BID 12/05/17 Nateglinide [Starlix (Nf) -] 60 mg PO TID 12/05/17 Rifaximin [Xifaxan] 550 mg PO BID 12/05/17 Spironolactone 50 mg PO DAILY 12/05/17 Vancomycin 1,250 mg IVPB DAILY@1800 vial 12/09/17 oxyCODONE HCL [Roxicodone -] 5 mg PO Q6H #20 tablet MDD 4 12/09/17
[2017-12-09] MEDS: SODIUM HYPOCHLORITE 0.25%- 473 ML BULK BOTTLE TP SCH (13:57)
[2017-12-09] MEDS ORDERED: VANCOMYCIN 1,250 MG in DEXTROSE 5%-WATER - 250 ML IVPB SCH (16:00)
[2017-12-09 17:36] VITALS: BP 115/60; PULSE 52; TEMP 98.6
== END 2017-12-09 17:35 | disposition home health service (06) | DRG 623 ==
LOC: JER 09:11 → JERBED 10:37 → J7W 18:50
PROVIDERS: ADMIT Family Medicine; ATTEND Family Medicine
PROC: 0QBP0ZX Excision of Left Metatarsal, Open Approach, Diagnostic (ICD-10-PCS; 2017-12-06)
PROC: 0W9G3ZZ Drainage of Peritoneal Cavity, Percutaneous Approach (ICD-10-PCS; 2017-12-06)
PROC: 0JBR0ZZ Excision of Left Foot Subcutaneous Tissue and Fascia, Open Approach (ICD-10-PCS; principal; 2017-12-06 13:30)
PROC: 30233N1 Transfusion of Nonautologous Red Blood Cells into Peripheral Vein, Percutaneous Approach (ICD-10-PCS; 2017-12-07)
DX: E11.621 Type 2 diabetes mellitus with foot ulcer (principal); L97.528 Non-pressure chronic ulcer of other part of left foot with other specified severity; M86.672 Other chronic osteomyelitis, left ankle and foot; I85.00 Esophageal varices without bleeding; A49.02 Methicillin resistant Staphylococcus aureus infection, unspecified site; I10 Essential (primary) hypertension; K74.60 Unspecified cirrhosis of liver; D64.9 Anemia, unspecified; K72.90 Hepatic failure, unspecified without coma; Z89.432 Acquired absence of left foot; Z89.421 Acquired absence of other right toe(s); E11.69 Type 2 diabetes mellitus with other specified complication; Z79.4 Long term (current) use of insulin; Z79.1 Long term (current) use of non-steroidal anti-inflammatories (NSAID); G62.9 Polyneuropathy, unspecified; Z76.82 Awaiting organ transplant status; E78.5 Hyperlipidemia, unspecified; Z86.73 Personal history of transient ischemic attack (TIA), and cerebral infarction without residual deficits; Z85.05 Personal history of malignant neoplasm of liver; I25.10 Atherosclerotic heart disease of native coronary artery without angina pectoris; Z95.5 Presence of coronary angioplasty implant and graft; Z80.3 Family history of malignant neoplasm of breast; Z86.718 Personal history of other venous thrombosis and embolism; I73.9 Peripheral vascular disease, unspecified
CPT/HCPCS: 36415; 36430; 71046-TC-FY; 76942-TC; 80053; 80061; 82140; 82962; 83721; 83735; 84100; 85025; 85610; 85730; 86850; 86900; 86901; 86922; 87070; 87075; 87186; 87205; 88305-TC; 88311-TC; 93005; 93010; 94760; 97116-GP; 97161-GP; 99285-25; J1644; P9038; P9058

== ENCOUNTER 2017-12-20 08:38 | Inpatient (IN) | payer MEDICARE ==
--- NOTE | 2017-12-20 09:15 | PDOC ---
History of Present Illness - General Chief Complaint: Nausea/Vomiting Stated Complaint: SLOW HEART RATE Time Seen by Provider: 12/20/17 09:14 History Source: Patient Exam Limitations: No Limitations - History of Present Illness Initial Comments: 12/20/17 09:26 57 year old male with PMH HTN, DM, HLD, cirrhosis presenting for cough associated with vomiting. Pt states since yesterday he has had a dry cough and posttussive vomiting. He denies nausea, vomiting without coughing. Pt normally ambulates with a walker. Pt had his left 4th and 5th toes amputated x2 weeks ago. Pt has a PICC line. Pt has drain in left foot. PCP - Annabi Allergies - IV contrast Denies etoh use, nicotine use, illicit drug use 12/20/17 16:07 Past History - Past Medical History Allergies/Adverse Reactions: Allergies Allergy/AdvReac Type Severity Reaction Status Date / Time Iodinated Contrast- Oral and Allergy Verified 12/20/17 08:50 IV Dye [Iodinated Contrast Media - IV Dye] Home Medications: Ambulatory Orders oxyCODONE HCL [Roxicodone -] 5 mg PO Q6H #20 tablet MDD 4 12/09/17 Aspirin [ASA -] 81 mg PO DAILY 12/20/17 Atorvastatin Ca [Lipitor] 10 mg PO DAILY 12/20/17 Furosemide [Lasix -] 40 mg PO BID 12/20/17 Insulin Detemir [Levemir Flextouch] 50 unit SQ HS 12/20/17 Insulin Lispro [Humalog Kwikpen] 0 unit SQ ASDIR 12/20/17 Lisinopril 20 mg PO DAILY 12/20/17 Multivitamins [Tab-A-Vit -] 1 tab PO DAILY 12/20/17 Nadolol 20 mg PO DAILY 12/20/17 Nateglinide [Starlix (Nf)] 60 mg PO TID 12/20/17 Pantoprazole Sodium [Protonix -] 40 mg PO DAILY 12/20/17 Ranolazine [Ranexa -] 1,000 mg PO BID 12/20/17 Rifaximin [Xifaxan] 550 mg PO BID 12/20/17 Spironolactone 50 mg PO DAILY 12/20/17 metFORMIN HCL [Metformin HCl] 500 mg PO BID 12/20/17 Anemia: Yes Asthma: No Cancer: Yes (LIVER) Cardiac Disorders: Yes (Stents 2006) CVA: Yes COPD: No CHF: No DVT: No Dementia: No Diabetes: Yes GI Disorders: Yes (ESOPHAGEAL VARICES,GASTRITIS) Disorders: No HTN: Yes Hypercholesterolemia: Yes Liver Disease: Yes (HEPATIC ENCEPHALOPATHY) Seizures: No Thyroid Disease: No - Surgical History Abdominal Surgery: No Appendectomy: No Cardiac Surgery: Yes (CARDIAC STENTS) Cholecystectomy: Yes Lung Surgery: No Neurologic Surgery: No Orthopedic Surgery: No - Immunization History Immunization Up to Date: Yes - Suicide/Smoking/Psychosocial Hx Smoking Status: No Smoking History: Never smoked Have you smoked in the past 12 months: No Number of Cigarettes Smoked Daily: 0 Cigars Per Day: 0 Information on smoking cessation initiated: No Hx Alcohol Use: No Drug/Substance Use Hx: No Substance Use Type: None Hx Substance Use Treatment: No Review of Systems - Review of Systems Able to Perform ROS?: Yes Comments:: 12/20/17 09:38 General: denies fever, chills, night sweats, generalized weakness. HEENT: denies sore throat, rhinorrhea, ear pain. Heart: denies chest pain, palpitations, syncope, lower extremity swelling, diaphoresis. Respiratory: admits to cough. denies shortness of breath, sputum production, hematemesis. Abdomen: admits to vomiting, abdominal pain. denies nausea, diarrhea, constipation, blood in stool. : denies dysuria, increased urinary frequency, hematuria, urinary incontinence , flank pain. Back: denies back pain, flank pain. Musculoskeletal: denies joint pain, muscle pain, joint swelling. Neurological: denies headache, dizziness, numbness, tingling, weakness. Skin: denies rash, laceration, abrasion. *Physical Exam - Vital Signs Last Vital Signs Temp Pulse Resp BP Pulse Ox 97.9 F 57 L 18 148/73 99 12/20/17 08:50 12/20/17 08:50 12/20/17 08:50 12/20/17 08:50 12/20/17 08:50 - Physical Exam Comments: 12/20/17 09:40 Appearance: comfortable. HEENT: head is normocephalic, atraumatic. EOMI. PERRLA. Neck: supple. Full ROM. Heart: regular rhythm. no murmurs, rubs or gallops. No pericardial friction rub. Lungs: clear to auscultation bilaterally. no crackles, rhonchi or wheezing. no stridor. Abdomen: soft, nontender, protuberant. normal bowel sounds. no rebound, guarding , masses. Extremities: right 2nd and 3rd toe amputated, healed well. Left fourth and fifth toe amputated, dressing applied on left foot, drain present. Peripheral pulses intact and equal. No lower extremity edema. Neurological: Alert. Oriented x3. CN 2-12 grossly intact. Moves all four extremities. Heart Score/ECG Review - ECG Impressions Comment:: 12/20/17 10:06 Rate 55, regular rhythm, left axis, no acute ST changes. ED Treatment Course - LABORATORY CBC & Chemistry Diagram: 12/20/17 10:30 12/20/17 10:13 Medical Decision Making - Medical Decision Making 12/20/17 09:40 57 year old male with PH DM, HTN, HLD presenting for cough and postussive vomiting since yesterday. Lung clear. Initial Vital Signs Temp Pulse Resp BP Pulse Ox 97.9 F 57 L 18 148/73 99 12/20/17 08:50 12/20/17 08:50 12/20/17 08:50 12/20/17 08:50 12/20/17 08:50 Afebrile. No tachyacrdia. No hypoxia. Pending labs, EKG, CXR. 12/20/17 14:45 Anemia, Hgb 8.6. AST 55 ALP 284 Ammonia 64.6, close to baseline. Cardiac enzymes negative. Lipase normal. Pending paracentesis. 12/20/17 15:07 CXR negative. Abdominal XR report - LUQ mass, presumed enlarged spleen. rule out ascites. 12/20/17 15:37 Paracentesis performed. Pt continuing with cough and abdominal pain. Pt unable to ambulate with walker. 12/20/17 16:26 Pt will be admitted to Dr. Flores's service. Paged Dr. Flores. Pending paracentesis results. *DC/Admit/Observation/Transfer Diagnosis at time of Disposition: Abdominal pain, Cough - Discharge Dispostion Condition at time of disposition: Stable Decision to Admit order: Yes - Referrals Referrals: Roxanne Duran MD [Primary Care Provider] - - Patient Instructions - Post Discharge Activity
--- NOTE | 2017-12-20 10:39 | PDOC ---
Attending Attestation - Resident Resident Name: Jacqui Juarez - ED Attending Attestation I have performed the following: I have examined & evaluated the patient, The case was reviewed & discussed with the resident, I agree w/resident's findings & plan, Exceptions are as noted - HPI HPI: 12/20/17 10:29 "The patient is a 57 year old male, with a significant PMH of HTN, HLD, Type 2 DM, HCC, cirrhosis with ascites and esophageal varices, CRD, and osteomyelitis of the L foot with multiple appendage amputations who presents to the emergency department with 1 day of dry cough and 2 episodes of non bloody non bilious emesis s/p coughing fits. The patient also endorses shortness of breath following his coughing fits. The patient states he is experiencing diffuse abdominal discomfort and chronic progressively worsening abdominal distension for which he states he has had fluid drained in the past. The patient states his last bowel movement was yesterday which was normal (denies diarrhea, melena or hematochezia). The patient denies chest pain, palpitations, headache and dizziness. Denies fever, chills, diarrhea and constipation. Denies dysuria, frequency, urgency and hematuria. Allergies: Iodinated contrast - oral and IV dye Surgical Hx: Cholecystectomy Social History: Denies tobacco use, EtoH use or recreational drug use. PCP: Dr Roxanne Flores " - Physicial Exam PE: 12/20/17 10:39 "GENERAL: Awake, alert, and fully oriented, in no acute distress. HEAD: No signs of trauma EYES: PERRLA, EOMI, sclera anicteric, conjunctiva clear ENT: Auricles normal inspection, hearing grossly normal, nares patent, oropharynx clear without exudates. Moist mucosa NECK: Nontender, no stepoffs, Normal ROM, supple, no lymphadenopathy, JVD, or masses LUNGS: Breath sounds equal, clear to auscultation bilaterally. No wheezes, and no crackles HEART: Regular rate and rhythm, normal S1 and S2, no murmurs, rubs or gallops ABDOMEN: + distended, + tympanitic, + fluid wave, mild epigastric TTP EXTREMITIES: Normal range of motion, no edema. No clubbing or cyanosis. No cords, erythema, or tenderness NEUROLOGICAL: Cranial nerves II through XII intact. 5/5 strength and sensation in all extremities, Normal speech, normal gait, normal cerebellar function SKIN: Warm, Dry, normal turgor, no rashes or lesions noted." - Medical Decision Making 12/20/17 10:40 57 M with cough and N+V x2. Exam notable for abdominal distention, likely 2/2 ascites. However, pt also with tympany on exam, concerning for obstruction. - Labs - CXR - Upright abd XR to r/o obstruction 12/20/17 16:29 XR with nonobstructive bowel gas pattern Labs unremarkable Diagnostic paracentesis performed to r/o SBP. Will admit for intractable abdominal pain <James Ulloa - Last Filed: 12/20/17 16:31> Attestations - Attestations 12/20/17 10:56 Documentation prepared by Kurt Mendoza, acting as medical insurance verifier for James Ulloa MD. <Kurt Mendoza - Last Filed: 12/20/17 10:56>
[2017-12-20 11:00] LABS: ALK PHOS 284 U/L (45-117); ANION GAP 8 (8-16); BILIRUBIN,TOTAL 0.9 mg/dL (0.2-1.0); BLOOD UREA NITROGEN 24 mg/dL (7-18); CALCIUM 8.7 mg/dL (8.5-10.1); CHLORIDE 107 mmol/L (98-107); CO2 26 mmol/L (21-32); CREATININE 1.2 mg/dL (0.7-1.3); GLUCOSE,RANDOM 114 mg/dL (74-106); LIPASE 164 U/L (73-393); POTASSIUM 4.8 mmol/L (3.5-5.1); SGOT/AST 55 U/L (15-37); SGPT/ALT 38 U/L (12-78); SODIUM 141 mmol/L (136-145); TOT PROT 7.1 g/dl (6.4-8.2)
[2017-12-20 11:29] LABS: BASO % 0.4 % (0-2.0); EOS % 0.5 % (0-4.5); HEMATOCRIT 25.4 % (35.4-49); HEMOGLOBIN 8.6 GM/dL (11.7-16.9); MCH 30.1 pg (25.7-33.7); MCHC 33.9 g/dl (32.0-35.9); MEAN CELL VOLUME 88.9 fl (80-96); MEAN PLT VOLUME 7.9 fl (7.5-11.1); MONO % 7.7 % (3.8-10.2); NEUT % 85.4 % (42.8-82.8); PLATELET COUNT 114 K/MM3 (134-434); RBC 2.86 M/mm3 (4.00-5.60); WHITE BLOOD COUNT 7.1 K/mm3 (4.0-10.0)
[2017-12-20] MEDS ORDERED: MAG HYDROX/AL HYDROX/SIMETH 30 ML UNIT-DOSE CUP PO ONE (12:43)
[2017-12-20] MEDS ORDERED: FAMOTIDINE 20 MG/50 ML IVPB 20 MG/50 ML MG IVPB ONE ×2 (12:43→13:43)
[2017-12-20] MEDS ORDERED: MAG HYDROX/AL HYDROX/SIMETH 30 ML UNIT-DOSE CUP ONE (13:43)
[2017-12-20] MEDS ORDERED: LIDOCAINE HCL 1%, 10 MG/ML (50 mL VIAL) SQ ONE (14:00)
[2017-12-20] MEDS ORDERED: LIDOCAINE HCL/PF 1% SDV 5ML VIAL ONE (15:15)
--- NOTE | 2017-12-20 16:25 | EKG ---
Test Reason : Blood Pressure : / mmHG Vent. Rate : 055 BPM Atrial Rate : 055 BPM P-R Int : 194 ms QRS Dur : 112 ms QT Int : 460 ms P-R-T Axes : 007 -37 002 degrees QTc Int : 440 ms SINUS BRADYCARDIA LEFT AXIS DEVIATION MODERATE VOLTAGE CRITERIA FOR LVH, MAY BE NORMAL VARIANT CANNOT RULE OUT SEPTAL INFARCT , AGE UNDETERMINED ABNORMAL ECG Confirmed by Aamir Potter MD ([id number]) on 12/20/2017 4:25:16 PM Referred By: Confirmed By:Aamir Potter MD
[2017-12-20 17:13] LABS: TOTAL PROTEIN,PERITONEAL FLUID 1 gm/dL
[2017-12-20 18:17] LABS: PERITONEAL RBC 1336 /mm3
[2017-12-20] MEDS ORDERED: PATIENT'S OWN MEDICATION (NON-FORMULARY) (Insulin Detemir [Levemir Flextouch] 50 UNIT) SQ SCH (22:00)
[2017-12-20 22:24] LABS: PERITONEAL FLUID LYMPHOCYTE 88 %; PERITONEAL FLUID MESOTHELIAL 6 %; PERITONEAL FLUID NEUTROPHIL 1 %
[2017-12-21] MEDS ORDERED: RANOLAZINE E.R. 500 MG TABLET (FP) ONE ×3 (01:53→22:37)
[2017-12-21] MEDS: RIFAXIMIN 550 MG TABLET (UD) PO SCH ×3 (02:08→23:06)
[2017-12-21] MEDS: HEPARIN NA (PORCINE) 5,000 UNITS/ML 1ML VIAL SQ SCH ×3 (02:08→23:02)
[2017-12-21] MEDS: PANTOPRAZOLE SODIUM 40 MG VIAL IVPUSH SCH ×3 (02:08→23:05)
[2017-12-21] MEDS: INSULIN (LEVEMIR) 100 UNITS/ML UNITS SQ SCH ×2 (02:08→23:09)
[2017-12-21] MEDS: ATORVASTATIN CA 10 MG TABLET (FP) PO SCH ×2 (02:08→23:05)
[2017-12-21] MEDS: RANOLAZINE E.R. 1,000 MG TABLET (FP) PO SCH ×3 (02:09→23:09)
[2017-12-21] MEDS: FUROSEMIDE 40 MG TABLET (FP) PO SCH ×2 (06:55→14:29)
[2017-12-21] MEDS: metFORMIN HCL 500 MG TABLET (FP) PO SCH ×2 (06:55→16:28)
[2017-12-21 07:15] LABS: BASO % 0.9 % (0-2.0); EOS % 0.9 % (0-4.5); HEMATOCRIT 22.3 % (35.4-49); HEMOGLOBIN 7.7 GM/dL (11.7-16.9); LYMPH % 13.4 % (8-40); MCH 30.3 pg (25.7-33.7); MCHC 34.3 g/dl (32.0-35.9); MEAN CELL VOLUME 88.3 fl (80-96); MEAN PLT VOLUME 7.6 fl (7.5-11.1); MONO % 9.3 % (3.8-10.2); NEUT % 75.5 % (42.8-82.8); PLATELET COUNT 96 K/MM3 (134-434); RBC 2.53 M/mm3 (4.00-5.60); RDW 16.7 % (11.9-15.9); WHITE BLOOD COUNT 5.2 K/mm3 (4.0-10.0)
--- NOTE | 2017-12-21 08:36 | PN ---
Progress Note, Physician - Current Medication List Current Medications: Active Medications Aspirin (Asa -) 81 mg PO DAILY [facility] Atorvastatin Calcium (Lipitor -) 10 mg PO HS [facility] Last Admin: 12/21/17 02:08 Dose: 10 mg Furosemide (Lasix -) 40 mg PO BIDLASIX [facility] Last Admin: 12/21/17 06:55 Dose: 40 mg Heparin Sodium (Porcine) (Heparin -) 5,000 unit SQ BID [facility] Last Admin: 12/21/17 02:08 Dose: 5,000 unit Insulin Detemir (Levemir Vial) 10 units SQ HS [facility] Last Admin: 12/21/17 02:08 Dose: 10 units Lisinopril (Prinivil) 20 mg PO DAILY [facility] Metformin HCl (Glucophage -) 500 mg PO BIDAC [facility] Last Admin: 12/21/17 06:55 Dose: 500 mg Multivitamins/Minerals/Vitamin C (Tab-A-Vit -) 1 tab PO DAILY [facility] Nadolol (Corgard -) 20 mg PO DAILY [facility] Oxycodone HCl (Roxicodone -) 5 mg PO Q6H PRN PRN Reason: PAIN 4-6 Pantoprazole Sodium (Protonix Iv) 40 mg IVPUSH BID [facility] Last Admin: 12/21/17 02:08 Dose: 40 mg Ranolazine (Ranexa -) 1,000 mg PO BID [facility] Last Admin: 12/21/17 02:09 Dose: 1,000 mg Rifaximin (Xifaxan -) 550 mg PO BID [facility] Last Admin: 12/21/17 02:08 Dose: 550 mg Spironolactone (Aldactone -) 50 mg PO DAILY [facility] - Objective Vital Signs: Vital Signs Temperature 98.2 F 12/21/17 06:31 Pulse Rate 54 L 12/21/17 06:31 Respiratory Rate 20 12/21/17 06:31 Blood Pressure 118/62 12/21/17 06:31 O2 Sat by Pulse Oximetry (%) 96 12/20/17 22:00 Labs: CBC, BMP 12/21/17 07:00
[2017-12-21 08:37] LABS: CHLORIDE 106 mmol/L (98-107); POTASSIUM 4.8 mmol/L (3.5-5.1); SODIUM 138 mmol/L (136-145)
[2017-12-21 09:17] LABS: ALBUMIN 1.8 g/dl (3.4-5.0); ALK PHOS 245 U/L (45-117); ANION GAP 5 (8-16); BILIRUBIN,TOTAL 0.8 mg/dL (0.2-1.0); BLOOD UREA NITROGEN 23 mg/dL (7-18); CALCIUM 8.5 mg/dL (8.5-10.1); CO2 27 mmol/L (21-32); CREATININE 1.2 mg/dL (0.7-1.3); GLUCOSE,RANDOM 117 mg/dL (74-106); SGOT/AST 48 U/L (15-37); SGPT/ALT 34 U/L (12-78); TOT PROT 6.4 g/dl (6.4-8.2)
--- NOTE | 2017-12-21 10:28 | EKG ---
Test Reason : Blood Pressure : / mmHG Vent. Rate : 057 BPM Atrial Rate : 057 BPM P-R Int : 176 ms QRS Dur : 110 ms QT Int : 448 ms P-R-T Axes : 020 -43 047 degrees QTc Int : 436 ms SINUS BRADYCARDIA LEFT AXIS DEVIATION MODERATE VOLTAGE CRITERIA FOR LVH, MAY BE NORMAL VARIANT CANNOT RULE OUT SEPTAL INFARCT (CITED ON OR BEFORE 25-OCT-2017) ABNORMAL ECG WHEN COMPARED WITH ECG OF 20-DEC-2017 08:43, QUESTIONABLE CHANGE IN INITIAL FORCES OF SEPTAL LEADS T WAVE INVERSION NO LONGER EVIDENT IN INFERIOR LEADS Confirmed by KRISTINA VELIZ MD ([id number]) on 12/21/2017 10:28:12 AM Referred By: Confirmed By:KRISTINA VELIZ MD
[2017-12-21] MEDS: SPIRONOLACTONE 25 MG TABLET (FP) PO SCH (10:32)
[2017-12-21] MEDS: ASPIRIN 81 MG CHEWABLE TABLETS PO SCH (10:32)
[2017-12-21] MEDS: MULTIVITAMINS (DAILY MVI) TABLET (FP) PO SCH (10:32)
[2017-12-21] MEDS: NADOLOL 20 MG TABLET (FP) PO SCH (10:32)
[2017-12-21] MEDS: LISINOPRIL 20 MG TABLET (FP) PO SCH (10:32)
--- NOTE | 2017-12-21 12:57 | CON.ID ---
Consult Consult Specialty:: infectious diseases Reason for Consultation:: cough - History of Present Illness Chief Complaint: cough wiht sputum production History of Present Illness: 57 year old male, accompanied by , with a significant past medical history of anemia, liver cell carcinoma, hepatic encephalopathy (patient is on a liver transplant list), hypertension, hyperlipidemia, CVA, IDDM, gastritis, esophageal varices well known to me from previous admission and now being treated for osteo of the foot with mrsa infection and with wound vac on the wound came to the hospital because of dry cough and 2 episodes of non bloody non bilious emesis s/p coughing fits. The patient also endorses shortness of breath following his coughing fits. The patient states he is experiencing diffuse abdominal discomfort and chronic progressively worsening abdominal distension for which he states he has had fluid drained in the past. The patient states his last bowel movement was yesterday which was normal (denies diarrhea, melena or hematochezia). patient now had fluid drained and currently feels comfortable - History Source History Provided By: Patient Limitations to Obtaining History: No Limitations - Past Medical History DIRECTOR MUSIC: Yes: Peripheral Neuropathy Cardio/Vascular: Yes: CAD, HTN, Hyperlipdemia Gastrointestinal: Yes: Ascites, Esophageal Varices, Gastritis, GI Bleed, Hemorrhoids, Other Hepatobiliary: Yes: Cirrhosis (h/o esophageal varices s/p banding, related to HERNANDEZ), Cholelithiasis (s/p lap choly), Other (PORTAL VEIN PARTIAL THROMBOSIS, HCC treated with transhepatic heat ablations at [facility]) Renal/: Yes: Renal Inusuff Endocrine: Yes: Diabetes Mellitus - Past Surgical History Past Surgical History: Yes: Amputation (left toe #4, right toes #2,3), Cholecystectomy, Colonoscopy, Hernia Repair, Upper Endoscopy - Alcohol/Substance Use Hx Alcohol Use: No History of Substance Use: reports: None - Smoking History Smoking history: Never smoked Have you smoked in the past 12 months: No Aproximately how many cigarettes per day: 0 - Social History Usual Living Arrangement: With Spouse ADL: Independent 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 [employer] History of Recent Travel: No Home Medications - Allergies Allergies/Adverse Reactions: Allergies Allergy/AdvReac Type Severity Reaction Status Date / Time Iodinated Contrast- Oral and Allergy Verified 12/20/17 08:50 IV Dye [Iodinated Contrast Media - IV Dye] - Home Medications Home Medications: Ambulatory Orders oxyCODONE HCL [Roxicodone -] 5 mg PO Q6H #20 tablet MDD 4 12/09/17 Aspirin [ASA -] 81 mg PO DAILY 12/20/17 Atorvastatin Ca [Lipitor] 10 mg PO DAILY 12/20/17 Furosemide [Lasix -] 40 mg PO BID 12/20/17 Insulin Detemir [Levemir Flextouch] 50 unit SQ HS 12/20/17 Insulin Lispro [Humalog Kwikpen] 0 unit SQ ASDIR 12/20/17 Lisinopril 20 mg PO DAILY 12/20/17 Multivitamins [Tab-A-Vit -] 1 tab PO DAILY 12/20/17 Nadolol 20 mg PO DAILY 12/20/17 Nateglinide [Starlix (Nf)] 60 mg PO TID 12/20/17 Pantoprazole Sodium [Protonix -] 40 mg PO DAILY 12/20/17 Ranolazine [Ranexa -] 1,000 mg PO BID 12/20/17 Rifaximin [Xifaxan] 550 mg PO BID 12/20/17 Spironolactone 50 mg PO DAILY 12/20/17 metFORMIN HCL [Metformin HCl] 500 mg PO BID 12/20/17 Family Disease History - Family Disease History Family Disease History: Diabetes: Brother (alcoholic cirrhosis), Sister, CA: Mother (breast Ca), Other: Father ( from alcohol related complications) Review of Systems - Review of Systems Constitutional: reports: No Symptoms Eyes: reports: No Symptoms HENT: reports: No Symptoms Neck: reports: No Symptoms Cardiovascular: reports: No Symptoms Respiratory: reports: Cough Gastrointestinal: reports: No Symptoms Genitourinary: reports: No Symptoms Musculoskeletal: reports: No Symptoms Integumentary: reports: No Symptoms Neurological: reports: No Symptoms Endocrine: reports: No Symptoms Hematology/Lymphatic: reports: No Symptoms Psychiatric: reports: No Symptoms Physical Exam Vital Signs: Vital Signs Temperature 98.4 F 12/21/17 09:00 Pulse Rate 55 L 12/21/17 09:00 Respiratory Rate 16 12/21/17 09:00 Blood Pressure 110/65 12/21/17 09:00 O2 Sat by Pulse Oximetry (%) 96 12/20/17 22:00 Constitutional: Yes: Calm, Mild Distress Cardiovascular: Yes: Regular Rate and Rhythm Respiratory: Yes: Regular, Poor Air Entry (bases) Gastrointestinal: Yes: Normal Bowel Sounds, Soft, Other (ascites) Musculoskeletal: Yes: WNL Extremities: Yes: Other Wound/Incision: Yes: Other (wound vac in place) Neurological: Yes: Alert, Oriented Psychiatric: Yes: Alert, Oriented Labs: CBC, BMP 12/21/17 07:00 12/21/17 07:00 Imaging - Results Chest X-ray: Report Reviewed, Image Reviewed X-ray: Report Reviewed, Image Reviewed Assessment/Plan Problem List - Problems (1) Abdominal pain Code(s): R10.9 - UNSPECIFIED ABDOMINAL PAIN (2) Cough Code(s): R05 - COUGH (3) SHANEKA (acute kidney injury) Code(s): N17.9 - ACUTE KIDNEY FAILURE, UNSPECIFIED (4) Abdominal distension Code(s): R14.0 - ABDOMINAL DISTENSION (GASEOUS) (5) Anemia Code(s): D64.9 - ANEMIA, UNSPECIFIED (6) Ascites Code(s): R18.8 - OTHER ASCITES (7) Diabetes 1.5, managed as type 2 Code(s): E13.9 - OTHER SPECIFIED DIABETES MELLITUS WITHOUT COMPLICATIONS (8) Diabetes mellitus, insulin dependent (IDDM), uncontrolled Code(s): E10.65 - TYPE 1 DIABETES MELLITUS WITH HYPERGLYCEMIA (9) Diabetic ulcer of left foot Code(s): E11.621 - TYPE 2 DIABETES MELLITUS WITH FOOT ULCER; L97.529 - NON- PRESSURE CHRONIC ULCER OTH PRT LEFT FOOT W UNSP SEVERITY Qualifiers: Diabetic foot ulcer location: other Diabetes mellitus type: type 2 Non- pressure ulcer stage: with other severity Qualified Code(s): E11.621 - Type 2 diabetes mellitus with foot ulcer; L97.528 - Non-pressure chronic ulcer of other part of left foot with other specified severity plan will start him back on vanco will await for all results findings in lung not very impressive if symptoms persist then will do ct of the chest
--- NOTE | 2017-12-21 13:23 | CON.GI ---
Consult Consult Specialty:: GI Reason for Consultation:: ascites - History of Present Illness History of Present Illness: Chart reviewed. Events noted. The pt is known to GI service from multiple recent admissions. Admitted for dry cough and one episode of vomiting yesterday The pr reports mild generalized abdominal discomfort however he has been afebrile, w/o chills, nausea, dysurea, jaundice, GRED, melena, hematochezia, hematemesis. Able to finish all his meals. Diagnostic abdominal paracentesis in ED showed no signs of SBP. ON exam, he appears to be comfortable, AAOx3, w/o astirexis, tremors. Distended , but soft and non-tender abdomen. Ascites present. No LE edema. 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 [employer] History of Recent Travel: No Home Medications - Allergies Allergies/Adverse Reactions: Allergies Allergy/AdvReac Type Severity Reaction Status Date / Time Iodinated Contrast- Oral and Allergy Verified 12/20/17 08:50 IV Dye [Iodinated Contrast Media - IV Dye] - Home Medications Home Medications: Ambulatory Orders oxyCODONE HCL [Roxicodone -] 5 mg PO Q6H #20 tablet MDD 4 12/09/17 Aspirin [ASA -] 81 mg PO DAILY 12/20/17 Atorvastatin Ca [Lipitor] 10 mg PO DAILY 12/20/17 Furosemide [Lasix -] 40 mg PO BID 12/20/17 Insulin Detemir [Levemir Flextouch] 50 unit SQ HS 12/20/17 Insulin Lispro [Humalog Kwikpen] 0 unit SQ ASDIR 12/20/17 Lisinopril 20 mg PO DAILY 12/20/17 Multivitamins [Tab-A-Vit -] 1 tab PO DAILY 12/20/17 Nadolol 20 mg PO DAILY 12/20/17 Nateglinide [Starlix (Nf)] 60 mg PO TID 12/20/17 Pantoprazole Sodium [Protonix -] 40 mg PO DAILY 12/20/17 Ranolazine [Ranexa -] 1,000 mg PO BID 12/20/17 Rifaximin [Xifaxan] 550 mg PO BID 12/20/17 Spironolactone 50 mg PO DAILY 12/20/17 metFORMIN HCL [Metformin HCl] 500 mg PO BID 12/20/17 Family Disease History - Family Disease History Family Disease History: Diabetes: Brother (alcoholic cirrhosis), Sister, CA: Mother (breast Ca), Other: Father ( from alcohol related complications) Review of Systems Findings/Remarks: as per HPI, ED, H&P Physical Exam-GI Vital Signs: Vital Signs Temperature 98.4 F 12/21/17 09:00 Pulse Rate 55 L 12/21/17 09:00 Respiratory Rate 16 12/21/17 09:00 Blood Pressure 110/65 12/21/17 09:00 O2 Sat by Pulse Oximetry (%) 96 12/20/17 22:00 Constitutional: Yes: Well Nourished, No Distress, Calm Eyes: Yes: Conjunctiva Clear. No: Sclera Icterus HENT: Yes: Atraumatic Neck: Yes: Supple Cardiovascular: Yes: Regular Rate and Rhythm. No: Bradycardia, Tachycardia Respiratory: Yes: Regular, CTA Bilaterally. No: Cough, Rales Gastrointestinal Inspection: Yes: Ascites, Distention ...Auscultate: Yes: Normoactive Bowel Sounds ...Palpate: Yes: Soft, Splenomegaly. No: Firm/Rigid, Guarding, Mass, Tenderness , Tenderness, Epigastium, Tenderness, Rebound ...Percussion: Yes: Fluid Wave Edema: No Neurological: Yes: Alert, Oriented. No: Aphasia, Asterixis, Confusion, Lethargy Labs: CBC, BMP 12/21/17 07:00 12/21/17 07:00 Laboratory Last Values WBC 5.2 K/mm3 (4.0-10.0) 12/21/17 07:00 RBC 2.53 M/mm3 (4.00-5.60) L 12/21/17 07:00 Hgb 7.7 GM/dL (11.7-16.9) L 12/21/17 07:00 Hct 22.3 % (35.4-49) L 12/21/17 07:00 MCV 88.3 fl (80-96) 12/21/17 07:00 MCH 30.3 pg (25.7-33.7) 12/21/17 07:00 MCHC 34.3 g/dl (32.0-35.9) 12/21/17 07:00 RDW 16.7 % (11.9-15.9) H 12/21/17 07:00 Plt Count 96 K/MM3 (134-434) L 12/21/17 07:00 MPV 7.6 fl (7.5-11.1) 12/21/17 07:00 Absolute Neuts (auto) 3.9 # 12/21/17 07:00 Neutrophils % 75.5 % (42.8-82.8) 12/21/17 07:00 Lymphocytes % 13.4 % (8-40) D 12/21/17 07:00 Monocytes % 9.3 % (3.8-10.2) 12/21/17 07:00 Eosinophils % 0.9 % (0-4.5) 12/21/17 07:00 Basophils % 0.9 % (0-2.0) 12/21/17 07:00 Nucleated RBC % 0 % (0-0) 12/21/17 07:00 Sodium 138 mmol/L (136-145) 12/21/17 07:00 Potassium 4.8 mmol/L (3.5-5.1) 12/21/17 07:00 Chloride 106 mmol/L (98-107) 12/21/17 07:00 Carbon Dioxide 27 mmol/L (21-32) 12/21/17 07:00 Anion Gap 5 (8-16) L 12/21/17 07:00 BUN 23 mg/dL (7-18) H 12/21/17 07:00 Creatinine 1.2 mg/dL (0.7-1.3) 12/21/17 07:00 Creat Clearance w eGFR > 60 (>60) 12/21/17 07:00 POC Glucometer 125 UNITS (80-120) 12/21/17 06:54 Random Glucose 117 mg/dL (74-106) H 12/21/17 07:00 Calcium 8.5 mg/dL (8.5-10.1) 12/21/17 07:00 Total Bilirubin 0.8 mg/dL (0.2-1.0) 12/21/17 07:00 AST 48 U/L (15-37) H 12/21/17 07:00 ALT 34 U/L (12-78) 12/21/17 07:00 Alkaline Phosphatase 245 U/L (45-117) H D 12/21/17 07:00 Ammonia 64.6 umol/L (11-32) H 12/20/17 10:13 Creatine Kinase 59 IU/L (39-308) 12/20/17 10:13 Troponin I 0.03 ng/ml (0.00-0.05) D 12/21/17 07:00 Total Protein 6.4 g/dl (6.4-8.2) 12/21/17 07:00 Albumin 1.8 g/dl (3.4-5.0) L 12/21/17 07:00 Lipase 164 U/L (73-393) 12/20/17 10:13 Peritoneal WBC 83 /mm3 12/20/17 15:30 Peritoneal RBC 1336 /mm3 12/20/17 15:30 Periton Neutrophils 1 % 12/20/17 15:30 Periton Lymphocytes 88 % 12/20/17 15:30 Periton Mesothelial 6 % 12/20/17 15:30 Peritoneal Other Cells 5 % 12/20/17 15:30 Peritoneal Tot Protein 1 gm/dL 12/20/17 15:30 Peritoneal Albumin 0 g/dL 12/20/17 15:30 Peritoneal LDH 46 IU/L 12/20/17 15:30 Peritoneal Glucose 138 mg/dL 12/20/17 15:30 Peritoneal Amylase 14 U/L 12/20/17 15:30 Imaging - Results X-ray: Report Reviewed Problem List - Problems (1) Abdominal pain Code(s): R10.9 - UNSPECIFIED ABDOMINAL PAIN (2) Esophageal varices Code(s): I85.00 - ESOPHAGEAL VARICES WITHOUT BLEEDING (3) Gastric varices without bleeding Code(s): I86.4 - GASTRIC VARICES (4) HCC (hepatocellular carcinoma) Code(s): C22.0 - LIVER CELL CARCINOMA Assessment/Plan No signs of SBP, or tense ascites. Continue current hepatic care. R/o respiratory tract infection. Ascites/hydrothorax may result in dry cough. Therapeutic paracentesis can be undertaken with close monitoring of renal function. Discussed with the patient
--- NOTE | 2017-12-21 14:04 | CONSULT ---
Consultation: REQUESTING PROVIDER: CONSULT REQUEST: We have been asked to medically evaluate this patient for ( Hematology-oncology). HISTORY OF PRESENT ILLNESS: 57 y/o male with PMH of cirrhosis, splenomegaly, esophageal varices, HCC ( treated with transhepatic heat ablation) came to the hospital with a chief complaint of non productive cough from 2 days and pain in upper part of his abdomen since one day. Patient states that cough had started 2 days ago and was getting worse. Pain was present in upper part of abdomen, pain was dull in nature, non radiating, constant, pain use to increase with cough. Denies nausea, vomiting, blood in stool, change in weight and appetite. Denies sob, chest pain, palpitations, dizziness, runny nose, sick contacts, regurgitation of food, posterior nasal discharge, fever and chills. Denies yellow discoloration of skin, eyes and urine. Denies pruritus. PMH : Peripheral Neuropathy, CAD, HTN, hyperlipidemia, ascites, esophageal varices, gastritis, GI bleed, hemorrhoids, cirrhosis (h/o esophageal varices s/ p banding, related to HERNANDEZ), cholelithiasis (s/p lap choly), Other (PORTAL VEIN PARTIAL THROMBOSIS, HCC treated with transhepatic heat ablations at [facility]) diabetes Mellitus, osteomyelitis, anemia, thrombocytopenia. PSH: esophageal band ligation, lap cholecystectomy, paracentesis, multiple toe amputations. 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 Family: Mother dies from breast ca at age of 90 Father from alcoholism at age of 70 Has 7 siblings most of them have DM Has 2 children and they are healthy Allergies Allergy/AdvReac Type Severity Reaction Status Date / Time Iodinated Contrast- Oral and Allergy Verified 12/20/17 08:50 IV Dye [Iodinated Contrast Media - IV Dye] REVIEW OF SYSTEMS: CONSTITUTIONAL: Absent: fever, chills, diaphoresis,malaise, loss of appetite, weight change HEENT: Absent: rhinorrhea, nasal congestion, throat pain, throat swelling, mouth swelling, ear pain, eye pain, visual changes CARDIOVASCULAR: Absent: chest pain, syncope, palpitations, irregular heart rate, lightheadedness , peripheral edema RESPIRATORY: Absent: cough, shortness of breath, wheezing, stridor, hemoptysis GASTROINTESTINAL: as above GENITOURINARY: Absent: dysuria, frequency, urgency, hesitancy, hematuria, flank pain, genital pain MUSCULOSKELETAL: Absent: myalgia, arthralgia, SKIN: Absent: rash, itching, pallor HEMATOLOGIC/IMMUNOLOGIC: Absent: easy bleeding, easy bruising, ENDOCRINE: Absent: unexplained weight gain, unexplained weight loss, NEUROLOGIC: Absent: headache, focal weakness, dizziness, PSYCHIATRIC: Absent: anxiety, depression, PHYSICAL EXAMINATION 12/21/17 12/21/17 06:31 09:00 Temperature 98.2 F 98.4 F Pulse Rate 54 L 55 L Pulse Rate [ Right Radial] Respiratory 20 16 Rate Blood Pressure 118/62 110/65 Blood Pressure [Left Arm] O2 Sat by Pulse Oximetry (%) GENERAL: Awake, alert, and fully oriented, in no acute distress. HEAD: Normal with no signs of trauma. EYES: Pupils equal, round and reactive to light, extraocular movements intact, sclera anicteric, conjunctiva clear. EARS, NOSE, THROAT: Moist mucous membranes. no oral thrush NECK: Normal range of motion, supple without lymphadenopathy, LUNGS: Breath sounds equal, clear to auscultation bilaterally. No wheezes, and no crackles. No accessory muscle use. HEART: Regular rate and rhythm, normal S1 and S2 without murmur ABDOMEN: Soft, nontender, distended, no guarding, no rebound, no masses, veins visible on anterior abdominal wall, umbilicus in center, transverse surgical scar present just above umbilicus, fluid thrill preset. UPPER EXTREMITIES: 2+ pulses, warm, well-perfused. No cyanosis. . LOWER EXTREMITIES: warm, No calf tenderness. peripheral edema 1+ on left side, left foot has vacuum dressing on foot, 4th and 5th toe amputation on left side, 2nd and 3rd toe amputation on right side. NEUROLOGICAL: Normal speech. PSYCHIATRIC: Cooperative. Good eye contact. SKIN: Warm, dry, 12/21/17 12/21/17 07:00 07:00 WBC 5.2 RBC 2.53 L Hgb 7.7 L Hct 22.3 L MCV 88.3 MCH 30.3 MCHC 34.3 RDW 16.7 H Plt Count 96 L MPV 7.6 Absolute Neuts (auto) 3.9 Neutrophils % 75.5 Lymphocytes % 13.4 D Monocytes % 9.3 Eosinophils % 0.9 Basophils % 0.9 Nucleated RBC % 0 Sodium 138 Potassium 4.8 Chloride 106 Carbon Dioxide 27 Anion Gap 5 L BUN 23 H Creatinine 1.2 Creat Clearance w eGFR > 60 POC Glucometer Random Glucose 117 H Calcium 8.5 Total Bilirubin 0.8 AST 48 H ALT 34 Alkaline Phosphatase 245 H D Troponin I 0.03 D Total Protein 6.4 Albumin 1.8 L Peritoneal WBC Peritoneal RBC Periton Neutrophils Periton Lymphocytes Periton Mesothelial Peritoneal Other Cells Peritoneal Tot Protein Peritoneal Albumin Peritoneal LDH Peritoneal Glucose Peritoneal Amylase Active Medications Generic Name Dose Route Start Last Admin Trade Name Rockq PRN Reason Stop Dose Admin Aspirin 81 mg 12/21/17 10:00 12/21/17 10:32 Asa - PO 81 mg DAILY J CARLOS Administration Atorvastatin Calcium 10 mg 12/20/17 22:00 12/21/17 02:08 Lipitor - PO 10 mg HS J CARLOS Administration Furosemide 40 mg 12/21/17 06:00 12/21/17 06:55 Lasix - PO 40 mg BIDLASIX J CARLOS Administration Heparin Sodium (Porcine) 5,000 unit 12/20/17 22:00 12/21/17 10:32 Heparin - SQ 5,000 unit BID J CARLOS Administration Vancomycin HCl 1,250 mg/ 250 mls @ 250 mls/2 hr 12/21/17 14:00 Dextrose IVPB Q24H [facility] Protocol Insulin Detemir 10 units 12/20/17 22:00 12/21/17 02:08 Levemir Vial SQ 10 units HS J CARLOS Administration Lisinopril 20 mg 12/21/17 10:00 12/21/17 10:32 Prinivil PO 20 mg DAILY J CARLOS Administration Metformin HCl 500 mg 12/21/17 07:00 12/21/17 06:55 Glucophage - PO 500 mg BIDAC J CARLOS Administration Multivitamins/Minerals/Vitamin C 1 tab 12/21/17 10:00 12/21/17 10:32 Tab-A-Vit - PO 1 tab DAILY J CARLOS Administration Nadolol 20 mg 12/21/17 10:00 12/21/17 10:32 Corgard - PO 20 mg DAILY J CARLOS Administration Oxycodone HCl 5 mg 12/20/17 18:15 Roxicodone - PO Q6H PRN PAIN 4-6 Pantoprazole Sodium 40 mg 12/20/17 22:00 12/21/17 10:32 Protonix Iv IVPUSH 40 mg BID J CARLOS Administration Ranolazine 1,000 mg 12/20/17 22:00 12/21/17 10:33 Ranexa - PO 1,000 mg BID J CARLOS Administration Rifaximin 550 mg 12/20/17 22:00 12/21/17 10:32 Xifaxan - PO 550 mg BID J CARLOS Administration Spironolactone 50 mg 12/21/17 10:00 12/21/17 10:32 Aldactone - PO 50 mg DAILY J CARLOS Administration ASSESSMENT/PLAN: Patient with advanced liver disease/HCC/Decompensated cirrhosis/PVT/ Splenomegaly Anemia/Thrombocytopenia/coagulopathy are likely from the above, but also OM/ Abx might be playing a role too. In last admission patient had Hb of 7.1 and had received one unit of blood. Pt was discharged with Hb of 9.2. Now patient came back with Hb of 8.6 and decreased to 7.7. We will order stool for occult blood, iron studies, vitamin b12, folic acid, ldh. We will transfuse one unit of pack cell. GI follow up. Dispo: We will continue to follow the patient. Thank you for this consultative opportunity. Visit type - Emergency Visit Emergency Visit: Yes ED Registration Date: 12/20/17 Care time: The patient presented to the Emergency Department on the above date and was hospitalized for further evaluation of their emergent condition. - New Patient This patient is new to me today: Yes Date on this admission: 12/22/17 - Critical Care Critical Care patient: No
[2017-12-21] MEDS: VANCOMYCIN 1,250 MG in DEXTROSE 5%-WATER - 250 ML IVPB SCH (16:28)
--- NOTE | 2017-12-21 17:19 | HP ---
Admitting History and Physical - Primary Care Physician PCP: Madhu Nicolas - Admission Chief Complaint: COUGH/ABD PAIN, ANEMIA, VOMITING/R/O SEPSIS History of Present Illness: 57 year old male with PMH HTN, DM, HLD, cirrhosis presenting for cough associated with vomiting. Pt states since yesterday he has had a dry cough and posttussive vomiting. He denies nausea, vomiting without coughing. Pt normally ambulates with a walker. Pt had his left 4th and 5th toes amputated x2 weeks ago. 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 Cardiovascular: Yes: CAD, HTN, Hyperlipdemia Gastrointestinal: Yes: Ascites, Esophageal Varices, Gastritis, GI Bleed, Hemorrhoids, Other Hepatobiliary: Yes: Cirrhosis (h/o esophageal varices s/p banding, related to HERNANDEZ), Cholelithiasis (s/p lap choly), Other (PORTAL VEIN PARTIAL THROMBOSIS, HCC treated with transhepatic heat ablations at [facility]) Renal/: Yes: Renal Inusuff Heme/Onc: Yes: Anemia, Thrombocytopenia Endocrine: Yes: Diabetes Mellitus - Past Surgical History Past Surgical History: Yes: Amputation (left toe #4, right toes #2,3), Cholecystectomy, Colonoscopy, Hernia Repair, Upper Endoscopy - Smoking History Smoking history: Never smoked Have you smoked in the past 12 months: No Aproximately how many cigarettes per day: 0 - Alcohol/Substance Use Hx Alcohol Use: No History of Substance Use: reports: None - Social History ADL: Independent 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 [id number] History of Recent Travel: No Home Medications - Allergies Allergies/Adverse Reactions: Allergies Allergy/AdvReac Type Severity Reaction Status Date / Time Iodinated Contrast- Oral and Allergy Verified 12/20/17 08:50 IV Dye [Iodinated Contrast Media - IV Dye] - Home Medications Home Medications: Ambulatory Orders oxyCODONE HCL [Roxicodone -] 5 mg PO Q6H #20 tablet MDD 4 12/09/17 Aspirin [ASA -] 81 mg PO DAILY 12/20/17 Atorvastatin Ca [Lipitor] 10 mg PO DAILY 12/20/17 Furosemide [Lasix -] 40 mg PO BID 12/20/17 Insulin Detemir [Levemir Flextouch] 50 unit SQ HS 12/20/17 Insulin Lispro [Humalog Kwikpen] 0 unit SQ ASDIR 12/20/17 Lisinopril 20 mg PO DAILY 12/20/17 Multivitamins [Tab-A-Vit -] 1 tab PO DAILY 12/20/17 Nadolol 20 mg PO DAILY 12/20/17 Nateglinide [Starlix (Nf)] 60 mg PO TID 12/20/17 Pantoprazole Sodium [Protonix -] 40 mg PO DAILY 12/20/17 Ranolazine [Ranexa -] 1,000 mg PO BID 12/20/17 Rifaximin [Xifaxan] 550 mg PO BID 12/20/17 Spironolactone 50 mg PO DAILY 12/20/17 metFORMIN HCL [Metformin HCl] 500 mg PO BID 12/20/17 Family Disease History - Family Disease History Family Disease History: Diabetes: Brother (alcoholic cirrhosis), Sister, CA: Mother (breast Ca), Other: Father ( from alcohol related complications) Review of Systems - Review of Systems Constitutional: reports: Loss of Appetite, Weakness Eyes: reports: No Symptoms HENT: reports: No Symptoms Neck: reports: No Symptoms Cardiovascular: reports: No Symptoms Respiratory: reports: No Symptoms Gastrointestinal: reports: No Symptoms Genitourinary: reports: Incontinence Musculoskeletal: reports: Joint Pain, Muscle Weakness, Other Integumentary: reports: Other Neurological: reports: Pre-Existing Deficit Endocrine: reports: No Symptoms Hematology/Lymphatic: reports: No Symptoms Psychiatric: reports: Other Physical Examination Vital Signs: Vital Signs Temperature 99.1 F 12/21/17 14:14 Pulse Rate 50 L 12/21/17 14:14 Respiratory Rate 16 12/21/17 09:00 Blood Pressure 121/68 12/21/17 14:14 O2 Sat by Pulse Oximetry (%) 96 12/21/17 09:00 Constitutional: Yes: Mild Distress Eyes: Yes: WNL HENT: Yes: WNL Neck: Yes: WNL Cardiovascular: Yes: WNL Respiratory: Yes: WNL Gastrointestinal: Yes: Tenderness Renal/: Yes: Incontinence Musculoskeletal: Yes: Muscle Weakness Extremities: Yes: Amputation Integumentary: Yes: Other (WOUND VAC TO LEFT FOOT AMPUTATION) Neurological: Yes: Pre-Existing Deficit, Other ...Motor Strength: LLE Psychiatric: Yes: WNL Labs: CBC, BMP 12/21/17 07:00 12/21/17 07:00 Problem List - Problems (1) Abdominal pain Code(s): R10.9 - UNSPECIFIED ABDOMINAL PAIN (2) Cough Code(s): R05 - COUGH (3) SHANEKA (acute kidney injury) Code(s): N17.9 - ACUTE KIDNEY FAILURE, UNSPECIFIED (4) Abdominal distension Code(s): R14.0 - ABDOMINAL DISTENSION (GASEOUS) (5) Anemia Code(s): D64.9 - ANEMIA, UNSPECIFIED (6) Ascites Code(s): R18.8 - OTHER ASCITES (7) Diabetes 1.5, managed as type 2 Code(s): E13.9 - OTHER SPECIFIED DIABETES MELLITUS WITHOUT COMPLICATIONS (8) Diabetes mellitus, insulin dependent (IDDM), uncontrolled Code(s): E10.65 - TYPE 1 DIABETES MELLITUS WITH HYPERGLYCEMIA (9) Diabetic ulcer of left foot Code(s): E11.621 - TYPE 2 DIABETES MELLITUS WITH FOOT ULCER; L97.529 - NON- PRESSURE CHRONIC ULCER OTH PRT LEFT FOOT W UNSP SEVERITY Qualifiers: Diabetic foot ulcer location: other Diabetes mellitus type: type 2 Non- pressure ulcer stage: with other severity Qualified Code(s): E11.621 - Type 2 diabetes mellitus with foot ulcer; L97.528 - Non-pressure chronic ulcer of other part of left foot with other specified severity Assessment/Plan IV ABX PER ID GI EVAL HEME/ONC FOR ANEMIA WOUND VAC FOR LEFT FOOT ULCER
--- NOTE | 2017-12-21 17:49 | PN ---
Teaching Attending Note Name of Resident: Christo Beck ATTENDING PHYSICIAN STATEMENT I saw and evaluated the patient. I reviewed the resident's note and discussed the case with the resident. I agree with the resident's findings and plan as documented. SUBJECTIVE: Patient seen and examined Patient with advanced liver disease with cirrhosis, portal hypertension, partial thrombosed portal vein , hepatocellular carcinima treated by heat ablation at [facility], coagulopathy, anemia , thrombocytopenia, DM, PVD, osteomyelitis, s/p amputation of left 4th and 5th, LE digits and right 2nd and 3rd LE digits. Patient presents with pain LUQ, anemia and thrombocytopenia OBJECTIVE: HEENT: JONE, EOM Intact Oropharynx: No thrush, No mucositis Neck: Supple Nodes: Without adenopathy Lungs: diminished breath sounds bilaterally Abd: ascites, fluid wave, umbilical hernia, surgical scar above umbilicus, no definite organomegaly appreciated Ext amputation left 4th and 5th digits and bone on left and 2nd and 3rd digits on right Skin: No rashes, Integument intact ASSESSMENT AND PLAN: Agree that cytopenias, coagulopathy are secondary to liver disease with portal hypertension , hypersplenism Would consider paracentesis for comfort. Would transfuse one unit of packed cell Wound care follow up. Stool for occult blood and Fe++ studies. Elevated ammonia--consider lactulose.
[2017-12-22] MEDS: oxyCODONE HCL 5 MG TABLET PO PRN ×2 (04:14→22:07)
[2017-12-22] MEDS: LACTULOSE 20 GM/30 ML UDC (FOR ORAL USE ONLY) PO SCH ×3 (06:48→22:05)
[2017-12-22] MEDS: FUROSEMIDE 40 MG TABLET (FP) PO SCH ×2 (06:48→14:58)
[2017-12-22] MEDS: metFORMIN HCL 500 MG TABLET (FP) PO SCH ×2 (06:49→16:57)
[2017-12-22 08:00] LABS: HEMATOCRIT 24.8 % (35.4-49); HEMOGLOBIN 8.7 GM/dL (11.7-16.9); MCH 30.6 pg (25.7-33.7); MEAN CELL VOLUME 87.5 fl (80-96); MEAN PLT VOLUME 7.5 fl (7.5-11.1); PLATELET COUNT 96 K/MM3 (134-434); RBC 2.84 M/mm3 (4.00-5.60); RDW 16.3 % (11.9-15.9); WHITE BLOOD COUNT 5.2 K/mm3 (4.0-10.0)
[2017-12-22 09:15] LABS: ANION GAP 9 (8-16); BLOOD UREA NITROGEN 22 mg/dL (7-18); CALCIUM 8.3 mg/dL (8.5-10.1); CHLORIDE 103 mmol/L (98-107); CO2 26 mmol/L (21-32); GLUCOSE,RANDOM 123 mg/dL (74-106); POTASSIUM 4.4 mmol/L (3.5-5.1); SODIUM 138 mmol/L (136-145)
[2017-12-22 09:22] LABS: CREATININE 1.4 mg/dL (0.7-1.3)
--- NOTE | 2017-12-22 10:17 | PN ---
Progress Note, Physician Chief Complaint: awake alert c/o ascites in abd getting worse - Current Medication List Current Medications: Active Medications Aspirin (Asa -) 81 mg PO DAILY [facility] Last Admin: 12/21/17 10:32 Dose: 81 mg Atorvastatin Calcium (Lipitor -) 10 mg PO HS [facility] Last Admin: 12/21/17 23:05 Dose: 10 mg Furosemide (Lasix -) 40 mg PO BIDLASIX [facility] Last Admin: 12/22/17 06:48 Dose: 40 mg Heparin Sodium (Porcine) (Heparin -) 5,000 unit SQ BID [facility] Last Admin: 12/21/17 23:02 Dose: 5,000 unit Vancomycin HCl 1,250 mg/ (Dextrose) 250 mls @ 250 mls/2 hr IVPB Q24H [facility]; Protocol Last Admin: 12/21/17 16:28 Dose: 250 mls/2 hr Insulin Detemir (Levemir Vial) 10 units SQ HS [facility] Last Admin: 12/21/17 23:09 Dose: 10 units Lactulose (Cephulac (Oral Use)) 20 gm PO TID [facility] Last Admin: 12/22/17 06:48 Dose: 20 gm Lisinopril (Prinivil) 20 mg PO DAILY [facility] Last Admin: 12/21/17 10:32 Dose: 20 mg Metformin HCl (Glucophage -) 500 mg PO BIDAC [facility] Last Admin: 12/22/17 06:49 Dose: 500 mg Multivitamins/Minerals/Vitamin C (Tab-A-Vit -) 1 tab PO DAILY [facility] Last Admin: 12/21/17 10:32 Dose: 1 tab Nadolol (Corgard -) 20 mg PO DAILY [facility] Last Admin: 12/21/17 10:32 Dose: 20 mg Oxycodone HCl (Roxicodone -) 5 mg PO Q6H PRN PRN Reason: PAIN 4-6 Last Admin: 12/22/17 04:14 Dose: 5 mg Pantoprazole Sodium (Protonix Iv) 40 mg IVPUSH BID [facility] Last Admin: 12/21/17 23:05 Dose: 40 mg Ranolazine (Ranexa -) 1,000 mg PO BID [facility] Last Admin: 12/21/17 23:09 Dose: 1,000 mg Rifaximin (Xifaxan -) 550 mg PO BID [facility] Last Admin: 12/21/17 23:06 Dose: 550 mg Spironolactone (Aldactone -) 50 mg PO DAILY J CARLOS Last Admin: 12/21/17 10:32 Dose: 50 mg - Objective Vital Signs: Vital Signs Temperature 98.9 F 12/22/17 06:00 Pulse Rate 56 L 12/22/17 06:00 Respiratory Rate 20 12/22/17 06:00 Blood Pressure 141/71 12/22/17 06:00 O2 Sat by Pulse Oximetry (%) 96 12/21/17 21:00 Constitutional: Yes: Mild Distress Eyes: Yes: WNL HENT: Yes: WNL Neck: Yes: WNL Cardiovascular: Yes: WNL Respiratory: Yes: WNL Gastrointestinal: Yes: Ascites, Tenderness Musculoskeletal: Yes: Muscle Weakness Extremities: Yes: Amputation, Deformity Integumentary: Yes: Pressure Ulcer Wound/Incision: Yes: Dressing Dry and Intact (wound vac to left foot) Neurological: Yes: Pre-Existing Deficit ...Motor Strength: LLE Psychiatric: Yes: WNL Labs: CBC, BMP 12/22/17 07:30 12/22/17 07:30 Problem List - Problems (1) Abdominal pain Code(s): R10.9 - UNSPECIFIED ABDOMINAL PAIN (2) Cough Code(s): R05 - COUGH (3) SHANEKA (acute kidney injury) Code(s): N17.9 - ACUTE KIDNEY FAILURE, UNSPECIFIED (4) Abdominal distension Code(s): R14.0 - ABDOMINAL DISTENSION (GASEOUS) (5) Anemia Code(s): D64.9 - ANEMIA, UNSPECIFIED (6) Ascites Code(s): R18.8 - OTHER ASCITES (7) Diabetes 1.5, managed as type 2 Code(s): E13.9 - OTHER SPECIFIED DIABETES MELLITUS WITHOUT COMPLICATIONS (8) Diabetes mellitus, insulin dependent (IDDM), uncontrolled Code(s): E10.65 - TYPE 1 DIABETES MELLITUS WITH HYPERGLYCEMIA (9) Diabetic ulcer of left foot Code(s): E11.621 - TYPE 2 DIABETES MELLITUS WITH FOOT ULCER; L97.529 - NON- PRESSURE CHRONIC ULCER OTH PRT LEFT FOOT W UNSP SEVERITY Qualifiers: Diabetic foot ulcer location: other Diabetes mellitus type: type 2 Non- pressure ulcer stage: with other severity Qualified Code(s): E11.621 - Type 2 diabetes mellitus with foot ulcer; L97.528 - Non-pressure chronic ulcer of other part of left foot with other specified severity (10) Ascites Code(s): R18.8 - OTHER ASCITES Assessment/Plan paracentesis with IR for abdominal ascites id and wound care f/u ada/bgm/ssi oob to chair as tolerated iv abx
[2017-12-22] MEDS ORDERED: RANOLAZINE E.R. 500 MG TABLET (FP) ONE ×2 (10:46→20:43)
[2017-12-22] MEDS: ASPIRIN 81 MG CHEWABLE TABLETS PO SCH (11:06)
[2017-12-22] MEDS: NADOLOL 20 MG TABLET (FP) PO SCH ×2 (11:06→11:11)
[2017-12-22] MEDS: RIFAXIMIN 550 MG TABLET (UD) PO SCH ×2 (11:07→22:02)
[2017-12-22] MEDS: SPIRONOLACTONE 25 MG TABLET (FP) PO SCH (11:07)
[2017-12-22] MEDS: MULTIVITAMINS (DAILY MVI) TABLET (FP) PO SCH (11:08)
[2017-12-22] MEDS: LISINOPRIL 20 MG TABLET (FP) PO SCH (11:08)
[2017-12-22] MEDS: PANTOPRAZOLE SODIUM 40 MG VIAL IVPUSH SCH ×2 (11:11→22:03)
[2017-12-22] MEDS: RANOLAZINE E.R. 1,000 MG TABLET (FP) PO SCH ×2 (11:11→22:08)
[2017-12-22] MEDS: HEPARIN NA (PORCINE) 5,000 UNITS/ML 1ML VIAL SQ SCH ×2 (11:11→22:05)
[2017-12-22 11:20] LABS: INR 1.21 (0.83-1.09); PROTHROMBIN TIME (PATIENT) 13.7 SEC (9.7-13.0)
--- NOTE | 2017-12-22 13:12 | PN ---
Progress Note, Physician History of Present Illness: stable uncomfortable because of abd distension still with cough no fevers - Current Medication List Current Medications: Active Medications Aspirin (Asa -) 81 mg PO DAILY [facility] Last Admin: 12/22/17 11:06 Dose: 81 mg Atorvastatin Calcium (Lipitor -) 10 mg PO HS [facility] Last Admin: 12/21/17 23:05 Dose: 10 mg Furosemide (Lasix -) 40 mg PO BIDLASIX [facility] Last Admin: 12/22/17 06:48 Dose: 40 mg Heparin Sodium (Porcine) (Heparin -) 5,000 unit SQ BID [facility] Last Admin: 12/22/17 11:11 Dose: 5,000 unit Vancomycin HCl 1,250 mg/ (Dextrose) 250 mls @ 250 mls/2 hr IVPB Q24H [facility]; Protocol Last Admin: 12/21/17 16:28 Dose: 250 mls/2 hr Insulin Detemir (Levemir Vial) 10 units SQ HS [facility] Last Admin: 12/21/17 23:09 Dose: 10 units Lactulose (Cephulac (Oral Use)) 20 gm PO TID [facility] Last Admin: 12/22/17 06:48 Dose: 20 gm Lisinopril (Prinivil) 20 mg PO DAILY [facility] Last Admin: 12/22/17 11:08 Dose: 20 mg Metformin HCl (Glucophage -) 500 mg PO BIDAC [facility] Last Admin: 12/22/17 06:49 Dose: 500 mg Multivitamins/Minerals/Vitamin C (Tab-A-Vit -) 1 tab PO DAILY [facility] Last Admin: 12/22/17 11:08 Dose: 1 tab Nadolol (Corgard -) 20 mg PO DAILY [facility] Last Admin: 12/22/17 11:11 Dose: Not Given Oxycodone HCl (Roxicodone -) 5 mg PO Q6H PRN PRN Reason: PAIN 4-6 Last Admin: 12/22/17 04:14 Dose: 5 mg Pantoprazole Sodium (Protonix Iv) 40 mg IVPUSH BID [facility] Last Admin: 12/22/17 11:11 Dose: 40 mg Ranolazine (Ranexa -) 1,000 mg PO BID [facility] Last Admin: 12/22/17 11:11 Dose: 1,000 mg Rifaximin (Xifaxan -) 550 mg PO BID [facility] Last Admin: 12/22/17 11:07 Dose: 550 mg Spironolactone (Aldactone -) 50 mg PO DAILY [facility] Last Admin: 12/22/17 11:07 Dose: 50 mg - Objective Vital Signs: Vital Signs Temperature 98.5 F 12/22/17 09:23 Pulse Rate 58 L 12/22/17 09:23 Respiratory Rate 18 12/22/17 09:23 Blood Pressure 121/68 12/22/17 09:23 O2 Sat by Pulse Oximetry (%) 96 12/22/17 09:00 Constitutional: Yes: Calm, Mild Distress Cardiovascular: Yes: Regular Rate and Rhythm Respiratory: Yes: Regular, CTA Bilaterally Gastrointestinal: Yes: Soft, Other Musculoskeletal: Yes: WNL Extremities: Yes: WNL Neurological: Yes: Alert, Oriented Psychiatric: Yes: Alert, Oriented Labs: CBC, BMP 12/22/17 07:30 12/22/17 07:30 INR, PTT INR 1.21 (0.83-1.09) H 12/22/17 10:30 Assessment/Plan Problem List - Problems (1) Abdominal pain Code(s): R10.9 - UNSPECIFIED ABDOMINAL PAIN (2) Cough Code(s): R05 - COUGH (3) SHANEKA (acute kidney injury) Code(s): N17.9 - ACUTE KIDNEY FAILURE, UNSPECIFIED (4) Abdominal distension Code(s): R14.0 - ABDOMINAL DISTENSION (GASEOUS) (5) Anemia Code(s): D64.9 - ANEMIA, UNSPECIFIED (6) Ascites Code(s): R18.8 - OTHER ASCITES (7) Diabetes 1.5, managed as type 2 Code(s): E13.9 - OTHER SPECIFIED DIABETES MELLITUS WITHOUT COMPLICATIONS (8) Diabetes mellitus, insulin dependent (IDDM), uncontrolled Code(s): E10.65 - TYPE 1 DIABETES MELLITUS WITH HYPERGLYCEMIA (9) Diabetic ulcer of left foot Code(s): E11.621 - TYPE 2 DIABETES MELLITUS WITH FOOT ULCER; L97.529 - NON- PRESSURE CHRONIC ULCER OTH PRT LEFT FOOT W UNSP SEVERITY Qualifiers: Diabetic foot ulcer location: other Diabetes mellitus type: type 2 Non- pressure ulcer stage: with other severity Qualified Code(s): E11.621 - Type 2 diabetes mellitus with foot ulcer; L97.528 - Non-pressure chronic ulcer of other part of left foot with other specified severity plan will check vanco level consider tapping for relieving discomfort wound care rest as per the team follow creatinine
[2017-12-22] MEDS: VANCOMYCIN 1,250 MG in DEXTROSE 5%-WATER - 250 ML IVPB SCH (14:58)
[2017-12-22 15:38] VITALS: BMI 38.9
[2017-12-22] MEDS: INSULIN (LEVEMIR) 100 UNITS/ML UNITS SQ SCH (22:03)
[2017-12-22] MEDS: ATORVASTATIN CA 10 MG TABLET (FP) PO SCH (22:07)
[2017-12-23 06:06] LABS: SERUM IRON SATURATION 40 % (15-55); TOTAL IRON BINDING CAPACITY 183 ug/dL (250-450); UIBC 110 ug/dL (111-343)
[2017-12-23] MEDS: metFORMIN HCL 500 MG TABLET (FP) PO SCH ×2 (06:56→18:19)
[2017-12-23] MEDS: FUROSEMIDE 40 MG TABLET (FP) PO SCH ×2 (06:56→15:07)
[2017-12-23] MEDS: LACTULOSE 20 GM/30 ML UDC (FOR ORAL USE ONLY) PO SCH ×3 (07:00→21:14)
--- NOTE | 2017-12-23 07:38 | PN ---
Progress Note (short form) - Note Progress Note: Patient seen and examined Some abdominal discomfort and SOB Last Vital Signs Temp Pulse Resp BP Pulse Ox 98 F 46 L 20 116/61 96 12/23/17 07:28 12/23/17 07:28 12/23/17 07:28 12/23/17 07:28 12/22/17 21:00 HEENT: JONE, EOM Intact Oropharynx: No thrush, No mucositis, poor dentition Cor: RSR, No murmurs, No gallops Lungs:diminished breath sounds bilaterally Abd: ascites , fluid wave Ext:PVD, dressing distal LLE , s/p amputation 4th and 5th digit LLE and 2nd and 3rd digit RLE CBC, BMP 12/22/17 07:30 12/22/17 07:30 INR, PTT INR 1.21 (0.83-1.09) H 12/22/17 10:30 Current Medications Generic Name Dose Route Start Last Admin Trade Name Freq PRN Reason Stop Dose Admin Aspirin 81 mg 12/21/17 10:00 12/22/17 11:06 Asa - PO 81 mg DAILY J CARLOS Administration Atorvastatin Calcium 10 mg 12/20/17 22:00 12/22/17 22:07 Lipitor - PO 10 mg HS J CARLOS Administration Furosemide 40 mg 12/21/17 06:00 12/23/17 06:56 Lasix - PO 40 mg BIDLASIX J CARLOS Administration Heparin Sodium (Porcine) 5,000 unit 12/20/17 22:00 12/22/17 22:05 Heparin - SQ 5,000 unit BID J CARLOS Administration Vancomycin HCl 1,250 mg/ 250 mls @ 250 mls/2 hr 12/21/17 14:00 12/22/17 14:58 Dextrose IVPB 250 mls/2 hr Q24H J CARLOS Administration Protocol Insulin Detemir 10 units 12/20/17 22:00 12/22/17 22:03 Levemir Vial SQ 10 units HS J CARLOS Administration Lactulose 20 gm 12/22/17 06:00 12/23/17 07:00 Cephulac (Oral Use) PO Not Given TID J CARLOS Lisinopril 20 mg 12/21/17 10:00 12/22/17 11:08 Prinivil PO 20 mg DAILY J CARLOS Administration Metformin HCl 500 mg 12/21/17 07:00 12/23/17 06:56 Glucophage - PO 500 mg BIDAC J CARLOS Administration Multivitamins/Minerals/Vitamin C 1 tab 12/21/17 10:00 12/22/17 11:08 Tab-A-Vit - PO 1 tab DAILY J CARLOS Administration Nadolol 20 mg 12/21/17 10:00 12/22/17 11:11 Corgard - PO Not Given DAILY J CARLOS Oxycodone HCl 5 mg 12/20/17 18:15 12/22/17 22:07 Roxicodone - PO 5 mg Q6H PRN Administration PAIN 4-6 Pantoprazole Sodium 40 mg 12/20/17 22:00 12/22/17 22:03 Protonix Iv IVPUSH 40 mg BID J CARLOS Administration Ranolazine 1,000 mg 12/20/17 22:00 12/22/17 22:08 Ranexa - PO 1,000 mg BID J CARLOS Administration Rifaximin 550 mg 12/20/17 22:00 12/22/17 22:02 Xifaxan - PO 550 mg BID J CARLOS Administration Spironolactone 50 mg 12/21/17 10:00 12/22/17 11:07 Aldactone - PO 50 mg DAILY J CARLOS Administration Impression: Advance liver disease Ascites Anemia Trhrombocytopenia Portal hypertension For paracentesis--platelets and INR are at acceptable levels for same . If significant volume loss and decrease BP can supplement with SPA.
--- NOTE | 2017-12-23 09:53 | PN ---
Progress Note, Physician History of Present Illness: patient stable going for paracentesis no other issues vanco level noted - Current Medication List Current Medications: Active Medications Aspirin (Asa -) 81 mg PO DAILY [facility] Last Admin: 12/22/17 11:06 Dose: 81 mg Atorvastatin Calcium (Lipitor -) 10 mg PO HS [facility]PL[facility] Last Admin: 12/22/17 22:07 Dose: 10 mg Furosemide (Lasix -) 40 mg PO BIDLASIX REPLACED BY [facility] Last Admin: 12/23/17 06:56 Dose: 40 mg Heparin Sodium (Porcine) (Heparin -) 5,000 unit SQ BID [facility] Last Admin: 12/22/17 22:05 Dose: 5,000 unit Insulin Detemir (Levemir Vial) 10 units SQ HS [facility] Last Admin: 12/22/17 22:03 Dose: 10 units Lactulose (Cephulac (Oral Use)) 20 gm PO TID [facility]PL[facility] BY [facility] Last Admin: 12/23/17 07:00 Dose: Not Given Lisinopril (Prinivil) 20 mg PO DAILY [facility] Last Admin: 12/22/17 11:08 Dose: 20 mg Metformin HCl (Glucophage -) 500 mg PO BIDAC REPLACED BY [facility] Last Admin: 12/23/17 06:56 Dose: 500 mg Multivitamins/Minerals/Vitamin C (Tab-A-Vit -) 1 tab PO DAILY [facility] Last Admin: 12/22/17 11:08 Dose: 1 tab Nadolol (Corgard -) 20 mg PO DAILY [facility] Last Admin: 12/22/17 11:11 Dose: Not Given Oxycodone HCl (Roxicodone -) 5 mg PO Q6H PRN PRN Reason: PAIN 4-6 Last Admin: 12/22/17 22:07 Dose: 5 mg Pantoprazole Sodium (Protonix Iv) 40 mg IVPUSH BID [facility] Last Admin: 12/22/17 22:03 Dose: 40 mg Ranolazine (Ranexa -) 1,000 mg PO BID [facility] Last Admin: 12/22/17 22:08 Dose: 1,000 mg Rifaximin (Xifaxan -) 550 mg PO BID [facility] Last Admin: 12/22/17 22:02 Dose: 550 mg Spironolactone (Aldactone -) 50 mg PO DAILY [facility] Last Admin: 12/22/17 11:07 Dose: 50 mg - Objective Vital Signs: Vital Signs Temperature 98 F 08/10/18 07:28 Pulse Rate 46 L 12/23/17 07:28 Respiratory Rate 20 12/23/17 07:28 Blood Pressure 116/61 12/23/17 07:28 O2 Sat by Pulse Oximetry (%) 96 12/22/17 21:00 Constitutional: Yes: No Distress, Calm Cardiovascular: Yes: Regular Rate and Rhythm Respiratory: Yes: Regular, Poor Air Entry Gastrointestinal: Yes: Normal Bowel Sounds, Soft, Ascites Musculoskeletal: Yes: WNL Extremities: Yes: Other Wound/Incision: Yes: Other (wound vac in place) Neurological: Yes: Alert, Oriented Psychiatric: Yes: Alert Labs: CBC, BMP 12/22/17 07:30 12/22/17 07:30 INR, PTT INR 1.21 (0.83-1.09) H 12/22/17 10:30 Assessment/Plan Problem List - Problems (1) Abdominal pain Code(s): R10.9 - UNSPECIFIED ABDOMINAL PAIN (2) Cough Code(s): R05 - COUGH (3) SHANEKA (acute kidney injury) Code(s): N17.9 - ACUTE KIDNEY FAILURE, UNSPECIFIED (4) Abdominal distension Code(s): R14.0 - ABDOMINAL DISTENSION (GASEOUS) (5) Anemia Code(s): D64.9 - ANEMIA, UNSPECIFIED (6) Ascites Code(s): R18.8 - OTHER ASCITES (7) Diabetes 1.5, managed as type 2 Code(s): E13.9 - OTHER SPECIFIED DIABETES MELLITUS WITHOUT COMPLICATIONS (8) Diabetes mellitus, insulin dependent (IDDM), uncontrolled Code(s): E10.65 - TYPE 1 DIABETES MELLITUS WITH HYPERGLYCEMIA (9) Diabetic ulcer of left foot Code(s): E11.621 - TYPE 2 DIABETES MELLITUS WITH FOOT ULCER; L97.529 - NON- PRESSURE CHRONIC ULCER OTH PRT LEFT FOOT W UNSP SEVERITY Qualifiers: Diabetic foot ulcer location: other Diabetes mellitus type: type 2 Non- pressure ulcer stage: with other severity Qualified Code(s): E11.621 - Type 2 diabetes mellitus with foot ulcer; L97.528 - Non-pressure chronic ulcer of other part of left foot with other specified severity plan vanco level noted will recheck vanco level awaiting paracentesis rest as per the team
[2017-12-23] MEDS ORDERED: RANOLAZINE E.R. 500 MG TABLET (FP) ONE ×3 (10:35→21:01)
[2017-12-23] MEDS ORDERED: PT OWN MED DRAWER 7, Y5N ONE (10:36)
[2017-12-23] MEDS: ASPIRIN 81 MG CHEWABLE TABLETS PO SCH (10:42)
[2017-12-23] MEDS: LISINOPRIL 20 MG TABLET (FP) PO SCH (10:42)
[2017-12-23] MEDS: NADOLOL 20 MG TABLET (FP) PO SCH (10:42)
[2017-12-23] MEDS: SPIRONOLACTONE 25 MG TABLET (FP) PO SCH (10:42)
[2017-12-23] MEDS: HEPARIN NA (PORCINE) 5,000 UNITS/ML 1ML VIAL SQ SCH ×2 (10:42→21:13)
[2017-12-23] MEDS: MULTIVITAMINS (DAILY MVI) TABLET (FP) PO SCH (10:44)
[2017-12-23] MEDS: RANOLAZINE E.R. 1,000 MG TABLET (FP) PO SCH ×2 (10:44→21:13)
[2017-12-23] MEDS: PANTOPRAZOLE SODIUM 40 MG VIAL IVPUSH SCH ×2 (10:44→21:13)
[2017-12-23] MEDS: RIFAXIMIN 550 MG TABLET (UD) PO SCH ×2 (10:49→21:13)
[2017-12-23] MEDS: oxyCODONE HCL 5 MG TABLET PO PRN (11:57)
--- NOTE | 2017-12-23 13:09 | PN ---
Progress Note, Physician Chief Complaint: in intervntional radiology for paracentesis seen in radiology mild distress - Current Medication List Current Medications: Active Medications Aspirin (Asa -) 81 mg PO DAILY [facility] Last Admin: 12/23/17 10:42 Dose: Not Given Atorvastatin Calcium (Lipitor -) 10 mg PO HS [facility] Last Admin: 12/22/17 22:07 Dose: 10 mg Furosemide (Lasix -) 40 mg PO BIDLASIX [facility] Last Admin: 12/23/17 06:56 Dose: 40 mg Heparin Sodium (Porcine) (Heparin -) 5,000 unit SQ BID [facility] Last Admin: 12/23/17 10:42 Dose: Not Given Insulin Detemir (Levemir Vial) 10 units SQ HS [facility] Last Admin: 12/22/17 22:03 Dose: 10 units Lactulose (Cephulac (Oral Use)) 20 gm PO TID [facility] Last Admin: 12/23/17 07:00 Dose: Not Given Lisinopril (Prinivil) 20 mg PO DAILY [facility] Last Admin: 12/23/17 10:42 Dose: Not Given Metformin HCl (Glucophage -) 500 mg PO BIDAC [facility] Last Admin: 12/23/17 06:56 Dose: 500 mg Multivitamins/Minerals/Vitamin C (Tab-A-Vit -) 1 tab PO DAILY [facility] Last Admin: 12/23/17 10:44 Dose: 1 tab Nadolol (Corgard -) 20 mg PO DAILY [facility] Last Admin: 12/23/17 10:42 Dose: Not Given Oxycodone HCl (Roxicodone -) 5 mg PO Q6H PRN PRN Reason: PAIN 4-6 Last Admin: 12/23/17 11:57 Dose: 5 mg Pantoprazole Sodium (Protonix Iv) 40 mg IVPUSH BID [facility] Last Admin: 12/23/17 10:44 Dose: 40 mg Ranolazine (Ranexa -) 1,000 mg PO BID [facility] Last Admin: 12/23/17 10:44 Dose: 1,000 mg Rifaximin (Xifaxan -) 550 mg PO BID [facility] Last Admin: 12/23/17 10:49 Dose: 550 mg Spironolactone (Aldactone -) 50 mg PO DAILY [facility] Last Admin: 12/23/17 10:42 Dose: Not Given - Objective Vital Signs: Vital Signs Temperature 98 F 12/23/17 07:28 Pulse Rate 46 L 12/23/17 07:28 Respiratory Rate 20 12/23/17 07:28 Blood Pressure 116/61 12/23/17 07:28 O2 Sat by Pulse Oximetry (%) 96 12/22/17 21:00 Constitutional: Yes: Mild Distress Eyes: Yes: WNL HENT: Yes: WNL Neck: Yes: WNL Cardiovascular: Yes: WNL Respiratory: Yes: WNL Gastrointestinal: Yes: Ascites, Distention Genitourinary: Yes: Incontinence Musculoskeletal: Yes: Other Extremities: Yes: Amputation, Deformity Edema: No Integumentary: Yes: Pressure Ulcer Wound/Incision: Yes: Draining, Other (WOUNDVAC LEFT FOOT) Neurological: Yes: Pre-Existing Deficit ...Motor Strength: LLE Psychiatric: Yes: WNL Labs: CBC, BMP 12/22/17 07:30 12/22/17 07:30 INR, PTT INR 1.21 (0.83-1.09) H 12/22/17 10:30 Problem List - Problems (1) Abdominal pain Code(s): R10.9 - UNSPECIFIED ABDOMINAL PAIN (2) Cough Code(s): R05 - COUGH (3) SHANEKA (acute kidney injury) Code(s): N17.9 - ACUTE KIDNEY FAILURE, UNSPECIFIED (4) Abdominal distension Code(s): R14.0 - ABDOMINAL DISTENSION (GASEOUS) (5) Anemia Code(s): D64.9 - ANEMIA, UNSPECIFIED (6) Ascites Code(s): R18.8 - OTHER ASCITES (7) Diabetes 1.5, managed as type 2 Code(s): E13.9 - OTHER SPECIFIED DIABETES MELLITUS WITHOUT COMPLICATIONS (8) Diabetes mellitus, insulin dependent (IDDM), uncontrolled Code(s): E10.65 - TYPE 1 DIABETES MELLITUS WITH HYPERGLYCEMIA (9) Diabetic ulcer of left foot Code(s): E11.621 - TYPE 2 DIABETES MELLITUS WITH FOOT ULCER; L97.529 - NON- PRESSURE CHRONIC ULCER OTH PRT LEFT FOOT W UNSP SEVERITY Qualifiers: Diabetic foot ulcer location: other Diabetes mellitus type: type 2 Non- pressure ulcer stage: with other severity Qualified Code(s): E11.621 - Type 2 diabetes mellitus with foot ulcer; L97.528 - Non-pressure chronic ulcer of other part of left foot with other specified severity (10) Ascites Code(s): R18.8 - OTHER ASCITES Assessment/Plan PARACENTESIS TODAY CHECK INR/PLTS ONCOLOGY EVAL APPRECIATED GI F/U SEND FLUIDS FOR CX/CYTOLOGY/GRAM STAIN PAIN CONTROL IV ABX CONT ID F/U
[2017-12-23 16:47] LABS: PERITONEAL RBC 1354 /mm3
[2017-12-23] MEDS: INSULIN (LEVEMIR) 100 UNITS/ML UNITS SQ SCH (21:14)
[2017-12-23] MEDS: ATORVASTATIN CA 10 MG TABLET (FP) PO SCH (21:14)
[2017-12-23 22:17] LABS: PERITONEAL FLUID NEUTROPHIL 6 %
[2017-12-23 22:18] LABS: PERITONEAL FLUID LYMPHOCYTE 21 %; PERITONEAL FLUID MACROPHAGE 68 %; PERITONEAL FLUID MESOTHELIAL 1 %; PERITONEAL FLUID MONOCYTE 4 %
[2017-12-24] MEDS: LACTULOSE 20 GM/30 ML UDC (FOR ORAL USE ONLY) PO SCH ×4 (06:26→23:10)
[2017-12-24] MEDS: metFORMIN HCL 500 MG TABLET (FP) PO SCH (06:27)
[2017-12-24] MEDS: FUROSEMIDE 40 MG TABLET (FP) PO SCH ×2 (06:27→14:42)
[2017-12-24 07:54] LABS: HEMATOCRIT 26.1 % (35.4-49); HEMOGLOBIN 9.2 GM/dL (11.7-16.9); MCHC 35.1 g/dl (32.0-35.9); MEAN CELL VOLUME 88.3 fl (80-96); PLATELET COUNT 97 K/MM3 (134-434); RBC 2.95 M/mm3 (4.00-5.60); RDW 16.3 % (11.9-15.9); WHITE BLOOD COUNT 5.5 K/mm3 (4.0-10.0)
[2017-12-24 08:01] LABS: INR 1.17 (0.83-1.09); PROTHROMBIN TIME (PATIENT) 13.2 SEC (9.7-13.0)
[2017-12-24 08:08] LABS: CHLORIDE 103 mmol/L (98-107); POTASSIUM 4.5 mmol/L (3.5-5.1); SODIUM 139 mmol/L (136-145)
[2017-12-24 08:18] LABS: ALBUMIN 1.9 g/dl (3.4-5.0); ALK PHOS 225 U/L (45-117); ANION GAP 8 (8-16); BILIRUBIN,TOTAL 1.2 mg/dL (0.2-1.0); BLOOD UREA NITROGEN 23 mg/dL (7-18); CALCIUM 8.4 mg/dL (8.5-10.1); CO2 28 mmol/L (21-32); CREATININE 1.3 mg/dL (0.7-1.3); GLUCOSE,RANDOM 108 mg/dL (74-106); SGOT/AST 37 U/L (15-37); SGPT/ALT 28 U/L (12-78); TOT PROT 6.6 g/dl (6.4-8.2)
--- NOTE | 2017-12-24 08:28 | PN ---
Progress Note, Physician Chief Complaint: Ascitis Diabetic foot wound Liver cirrhosis History of Present Illness: NAD Wound vac on Vanco Trough 18.58 yesterday No more complaints Cr 1.4 yesterday Awaiting labs today Wants to home Has PICC line PADMINI - Current Medication List Current Medications: Active Medications Aspirin (Asa -) 81 mg PO DAILY [facility] Last Admin: 12/23/17 10:42 Dose: Not Given Atorvastatin Calcium (Lipitor -) 10 mg PO HS [facility] Last Admin: 12/23/17 21:14 Dose: 10 mg Furosemide (Lasix -) 40 mg PO BIDLASIX [facility] Last Admin: 12/24/17 06:27 Dose: 40 mg Heparin Sodium (Porcine) (Heparin -) 5,000 unit SQ BID [facility] Last Admin: 12/23/17 21:13 Dose: 5,000 unit Insulin Detemir (Levemir Vial) 10 units SQ HS [facility] Last Admin: 12/23/17 21:14 Dose: 10 units Lactulose (Cephulac (Oral Use)) 20 gm PO TID [facility] Last Admin: 12/24/17 06:26 Dose: Not Given Lisinopril (Prinivil) 20 mg PO DAILY [facility] Last Admin: 12/23/17 10:42 Dose: Not Given Metformin HCl (Glucophage -) 500 mg PO BIDAC [facility] Last Admin: 12/24/17 06:27 Dose: 500 mg Multivitamins/Minerals/Vitamin C (Tab-A-Vit -) 1 tab PO DAILY [facility] Last Admin: 12/23/17 10:44 Dose: 1 tab Nadolol (Corgard -) 20 mg PO DAILY [facility] Last Admin: 12/23/17 10:42 Dose: Not Given Oxycodone HCl (Roxicodone -) 5 mg PO Q6H PRN PRN Reason: PAIN 4-6 Last Admin: 12/23/17 11:57 Dose: 5 mg Pantoprazole Sodium (Protonix Iv) 40 mg IVPUSH BID [facility] Last Admin: 12/23/17 21:13 Dose: 40 mg Ranolazine (Ranexa -) 1,000 mg PO BID [facility] Last Admin: 12/23/17 21:13 Dose: 1,000 mg Rifaximin (Xifaxan -) 550 mg PO BID [facility] Last Admin: 12/23/17 21:13 Dose: 550 mg Spironolactone (Aldactone -) 50 mg PO DAILY [facility] CAR[facility] Last Admin: 12/23/17 10:42 Dose: Not Given - Objective Vital Signs: Vital Signs Temperature 98.1 F 12/24/17 07:00 Pulse Rate 51 L 12/24/17 07:00 Respiratory Rate 12/24/17 07:00 Blood Pressure 112/62 12/24/17 07:00 O2 Sat by Pulse Oximetry (%) 98 12/23/17 21:00 Constitutional: Yes: Well Nourished, No Distress, Calm Cardiovascular: Yes: Regular Rate and Rhythm Respiratory: Yes: Regular Gastrointestinal: Yes: Normal Bowel Sounds, Soft, Abdomen, Obese Musculoskeletal: Yes: WNL Extremities: Yes: WNL Edema: No Wound/Incision: Yes: Dressing Dry and Intact Neurological: Yes: Alert, Oriented Psychiatric: Yes: Alert, Oriented Labs: CBC, BMP 12/24/17 06:30 12/24/17 06:30 INR, PTT INR 1.17 (0.83-1.09) H 12/24/17 06:30 Problem List - Problems (1) Abdominal pain Assessment/Plan: - Code(s): R10.9 - UNSPECIFIED ABDOMINAL PAIN (2) Ascites Assessment/Plan: -improved -had therapeutic paracentesis this admission, 2L taken out -Awaiting fluid micro Code(s): R18.8 - OTHER ASCITES (3) Anemia Assessment/Plan: -Chronic, 2/2 to liver cirrhosis -At his baseline Code(s): D64.9 - ANEMIA, UNSPECIFIED (4) Diabetes mellitus, insulin dependent (IDDM), uncontrolled Assessment/Plan: -A1c 5.0 -Diabetic diet -D/C metformin -Continue Levemir and novolog sliding scale -BGM AC HS Code(s): E10.65 - TYPE 1 DIABETES MELLITUS WITH HYPERGLYCEMIA (5) Diabetic ulcer of left foot Assessment/Plan: -Podiatry on board -ID on board -Wound vac Code(s): E11.621 - TYPE 2 DIABETES MELLITUS WITH FOOT ULCER; L97.529 - NON- PRESSURE CHRONIC ULCER OTH PRT LEFT FOOT W UNSP SEVERITY Qualifiers: Diabetic foot ulcer location: other Diabetes mellitus type: type 2 Non- pressure ulcer stage: with other severity Qualified Code(s): E11.621 - Type 2 diabetes mellitus with foot ulcer; L97.528 - Non-pressure chronic ulcer of other part of left foot with other specified severity Assessment/Plan see problem list self ambulatory DVT prophylaxis
[2017-12-24] MEDS ORDERED: RANOLAZINE E.R. 500 MG TABLET (FP) ONE ×2 (10:18→22:28)
[2017-12-24] MEDS: NADOLOL 20 MG TABLET (FP) PO SCH (10:57)
[2017-12-24] MEDS: LISINOPRIL 20 MG TABLET (FP) PO SCH ×2 (10:57→11:37)
[2017-12-24] MEDS: SPIRONOLACTONE 25 MG TABLET (FP) PO SCH ×2 (10:57→11:37)
[2017-12-24] MEDS: PANTOPRAZOLE SODIUM 40 MG VIAL IVPUSH SCH ×2 (11:02→23:00)
[2017-12-24] MEDS: RIFAXIMIN 550 MG TABLET (UD) PO SCH ×2 (11:02→23:00)
[2017-12-24] MEDS: HEPARIN NA (PORCINE) 5,000 UNITS/ML 1ML VIAL SQ SCH ×2 (11:02→23:00)
[2017-12-24] MEDS: MULTIVITAMINS (DAILY MVI) TABLET (FP) PO SCH (11:02)
[2017-12-24] MEDS: ASPIRIN 81 MG CHEWABLE TABLETS PO SCH (11:02)
[2017-12-24] MEDS: RANOLAZINE E.R. 1,000 MG TABLET (FP) PO SCH ×2 (11:03→23:03)
--- NOTE | 2017-12-24 12:45 | PN ---
Progress Note, Physician History of Present Illness: patient doing well no complaints vanco level noted will hold vanco today creatinine now coming down - Current Medication List Current Medications: Active Medications Aspirin (Asa -) 81 mg PO DAILY [facility] Last Admin: 12/24/17 11:02 Dose: 81 mg Atorvastatin Calcium (Lipitor -) 10 mg PO HS [facility] Last Admin: 12/23/17 21:14 Dose: 10 mg Furosemide (Lasix -) 40 mg PO BIDLASIX [facility] Last Admin: 12/24/17 06:27 Dose: 40 mg Heparin Sodium (Porcine) (Heparin -) 5,000 unit SQ BID [facility] Last Admin: 12/24/17 11:02 Dose: 5,000 unit Insulin Detemir (Levemir Vial) 10 units SQ HS [facility] Last Admin: 12/23/17 21:14 Dose: 10 units Lactulose (Cephulac (Oral Use)) 20 gm PO TID [facility] Last Admin: 12/24/17 06:26 Dose: Not Given Lisinopril (Prinivil) 20 mg PO DAILY [facility] Last Admin: 12/24/17 11:37 Dose: 20 mg Multivitamins/Minerals/Vitamin C (Tab-A-Vit -) 1 tab PO DAILY [facility] Last Admin: 12/24/17 11:02 Dose: 1 tab Nadolol (Corgard -) 20 mg PO DAILY [facility] Last Admin: 12/24/17 10:57 Dose: Not Given Oxycodone HCl (Roxicodone -) 5 mg PO Q6H PRN PRN Reason: PAIN 4-6 Last Admin: 12/23/17 11:57 Dose: 5 mg Pantoprazole Sodium (Protonix Iv) 40 mg IVPUSH BID [facility] Last Admin: 12/24/17 11:02 Dose: 40 mg Ranolazine (Ranexa -) 1,000 mg PO BID [facility] Last Admin: 12/24/17 11:03 Dose: 1,000 mg Rifaximin (Xifaxan -) 550 mg PO BID [facility] Last Admin: 12/24/17 11:02 Dose: 550 mg Spironolactone (Aldactone -) 50 mg PO DAILY [facility] Last Admin: 12/24/17 11:37 Dose: 50 mg - Objective Vital Signs: Vital Signs Temperature 97.8 F 12/24/17 09:40 Pulse Rate 51 L 12/24/17 07:00 Respiratory Rate 18 08/11/18 09:40 Blood Pressure 99/52 12/24/17 09:40 O2 Sat by Pulse Oximetry (%) 98 12/23/17 21:00 Constitutional: Yes: No Distress, Calm Cardiovascular: Yes: Regular Rate and Rhythm Respiratory: Yes: Regular, CTA Bilaterally Gastrointestinal: Yes: Normal Bowel Sounds, Soft Musculoskeletal: Yes: WNL Extremities: Yes: Other Wound/Incision: Yes: Other (wound vac in place) Neurological: Yes: Alert, Oriented Labs: CBC, BMP 12/24/17 06:30 12/24/17 06:30 INR, PTT INR 1.17 (0.83-1.09) H 12/24/17 06:30 Assessment/Plan Problem List - Problems (1) Abdominal pain Code(s): R10.9 - UNSPECIFIED ABDOMINAL PAIN (2) Cough Code(s): R05 - COUGH (3) SHANEKA (acute kidney injury) Code(s): N17.9 - ACUTE KIDNEY FAILURE, UNSPECIFIED (4) Abdominal distension Code(s): R14.0 - ABDOMINAL DISTENSION (GASEOUS) (5) Anemia Code(s): D64.9 - ANEMIA, UNSPECIFIED (6) Ascites Code(s): R18.8 - OTHER ASCITES (7) Diabetes 1.5, managed as type 2 Code(s): E13.9 - OTHER SPECIFIED DIABETES MELLITUS WITHOUT COMPLICATIONS (8) Diabetes mellitus, insulin dependent (IDDM), uncontrolled Code(s): E10.65 - TYPE 1 DIABETES MELLITUS WITH HYPERGLYCEMIA (9) Diabetic ulcer of left foot Code(s): E11.621 - TYPE 2 DIABETES MELLITUS WITH FOOT ULCER; L97.529 - NON- PRESSURE CHRONIC ULCER OTH PRT LEFT FOOT W UNSP SEVERITY Qualifiers: Diabetic foot ulcer location: other Diabetes mellitus type: type 2 Non- pressure ulcer stage: with other severity Qualified Code(s): E11.621 - Type 2 diabetes mellitus with foot ulcer; L97.528 - Non-pressure chronic ulcer of other part of left foot with other specified severity plan post paracentesis will see what is vanco level then will decide the dose follow creatinine
[2017-12-24] MEDS: INSULIN (LEVEMIR) 100 UNITS/ML UNITS SQ SCH (23:01)
[2017-12-24] MEDS: ATORVASTATIN CA 10 MG TABLET (FP) PO SCH (23:01)
[2017-12-25] MEDS: LACTULOSE 20 GM/30 ML UDC (FOR ORAL USE ONLY) PO SCH ×2 (06:08→13:40)
[2017-12-25] MEDS: FUROSEMIDE 40 MG TABLET (FP) PO SCH ×2 (06:08→13:40)
--- NOTE | 2017-12-25 07:23 | PN ---
Progress Note, Physician History of Present Illness: patient stable doing well no complaints feels good after paracentesis cr decreasing - Current Medication List Current Medications: Active Medications Aspirin (Asa -) 81 mg PO DAILY [facility] Last Admin: 12/24/17 11:02 Dose: 81 mg Atorvastatin Calcium (Lipitor -) 10 mg PO HS [facility] Last Admin: 12/24/17 23:01 Dose: 10 mg Furosemide (Lasix -) 40 mg PO BIDLASIX [facility] Last Admin: 12/25/17 06:08 Dose: 40 mg Heparin Sodium (Porcine) (Heparin -) 5,000 unit SQ BID [facility] Last Admin: 12/24/17 23:00 Dose: 5,000 unit Insulin Detemir (Levemir Vial) 10 units SQ HS [facility] Last Admin: 12/24/17 23:01 Dose: 10 units Lactulose (Cephulac (Oral Use)) 20 gm PO TID [facility] Last Admin: 12/25/17 06:08 Dose: Not Given Lisinopril (Prinivil) 20 mg PO DAILY [facility] Last Admin: 12/24/17 11:37 Dose: 20 mg Multivitamins/Minerals/Vitamin C (Tab-A-Vit -) 1 tab PO DAILY [facility] Last Admin: 12/24/17 11:02 Dose: 1 tab Nadolol (Corgard -) 20 mg PO DAILY [facility] Last Admin: 12/24/17 10:57 Dose: Not Given Oxycodone HCl (Roxicodone -) 5 mg PO Q6H PRN PRN Reason: PAIN 4-6 Last Admin: 12/23/17 11:57 Dose: 5 mg Pantoprazole Sodium (Protonix Iv) 40 mg IVPUSH BID [facility] Last Admin: 12/24/17 23:00 Dose: 40 mg Ranolazine (Ranexa -) 1,000 mg PO BID [facility] Last Admin: 12/24/17 23:03 Dose: 1,000 mg Rifaximin (Xifaxan -) 550 mg PO BID [facility] Last Admin: 12/24/17 23:00 Dose: 550 mg Spironolactone (Aldactone -) 50 mg PO DAILY [facility] Last Admin: 12/24/17 11:37 Dose: 50 mg - Objective Vital Signs: Vital Signs Temperature 98.9 F 12/24/17 22:00 Pulse Rate 60 12/24/17 22:00 Respiratory Rate 20 12/24/17 22:00 Blood Pressure 118/54 12/24/17 22:00 O2 Sat by Pulse Oximetry (%) 99 12/24/17 21:00 Constitutional: Yes: No Distress, Calm Cardiovascular: Yes: Regular Rate and Rhythm Respiratory: Yes: Regular, CTA Bilaterally Gastrointestinal: Yes: Normal Bowel Sounds, Soft Musculoskeletal: Yes: WNL Extremities: Yes: Other Wound/Incision: Yes: Other (wound vac in place) Neurological: Yes: Alert, Oriented Psychiatric: Yes: Alert, Oriented Labs: CBC, BMP 12/24/17 06:30 12/24/17 06:30 INR, PTT INR 1.17 (0.83-1.09) H 12/24/17 06:30 Assessment/Plan Problem List - Problems (1) Abdominal pain Code(s): R10.9 - UNSPECIFIED ABDOMINAL PAIN (2) Cough Code(s): R05 - COUGH (3) SHANEKA (acute kidney injury) Code(s): N17.9 - ACUTE KIDNEY FAILURE, UNSPECIFIED (4) Abdominal distension Code(s): R14.0 - ABDOMINAL DISTENSION (GASEOUS) (5) Anemia Code(s): D64.9 - ANEMIA, UNSPECIFIED (6) Ascites Code(s): R18.8 - OTHER ASCITES (7) Diabetes 1.5, managed as type 2 Code(s): E13.9 - OTHER SPECIFIED DIABETES MELLITUS WITHOUT COMPLICATIONS (8) Diabetes mellitus, insulin dependent (IDDM), uncontrolled Code(s): E10.65 - TYPE 1 DIABETES MELLITUS WITH HYPERGLYCEMIA (9) Diabetic ulcer of left foot Code(s): E11.621 - TYPE 2 DIABETES MELLITUS WITH FOOT ULCER; L97.529 - NON- PRESSURE CHRONIC ULCER OTH PRT LEFT FOOT W UNSP SEVERITY Qualifiers: Diabetic foot ulcer location: other Diabetes mellitus type: type 2 Non- pressure ulcer stage: with other severity Qualified Code(s): E11.621 - Type 2 diabetes mellitus with foot ulcer; L97.528 - Non-pressure chronic ulcer of other part of left foot with other specified severity plan post paracentesis vanco levels noted please send patient on vanco 1 gm daily then vanco trough before the 4th dose follow creatinine strictly rest continue current mgmt i ahve discussed the change with the patient please inform him also
[2017-12-25] MEDS ORDERED: VANCOMYCIN 1,000 MG in DEXTROSE 5%-WATER - 250 ML IVPB SCH (09:00)
[2017-12-25] MEDS ORDERED: VANCOMYCIN 1 GM PREMIX - 1 GM/200 ML BAG IVPB SCH (10:00)
[2017-12-25] MEDS ORDERED: RANOLAZINE E.R. 500 MG TABLET (FP) ONE (10:21)
[2017-12-25] MEDS ORDERED: PT OWN MED DRAWER 7, Y5N ONE (10:29)
[2017-12-25] MEDS: RANOLAZINE E.R. 1,000 MG TABLET (FP) PO SCH (10:47)
[2017-12-25] MEDS: PANTOPRAZOLE SODIUM 40 MG VIAL IVPUSH SCH (10:48)
[2017-12-25] MEDS: MULTIVITAMINS (DAILY MVI) TABLET (FP) PO SCH (10:48)
[2017-12-25] MEDS: NADOLOL 20 MG TABLET (FP) PO SCH (10:48)
[2017-12-25] MEDS: HEPARIN NA (PORCINE) 5,000 UNITS/ML 1ML VIAL SQ SCH (10:48)
[2017-12-25] MEDS: RIFAXIMIN 550 MG TABLET (UD) PO SCH (10:48)
[2017-12-25] MEDS: SPIRONOLACTONE 25 MG TABLET (FP) PO SCH (10:49)
[2017-12-25] MEDS: ASPIRIN 81 MG CHEWABLE TABLETS PO SCH (10:49)
[2017-12-25] MEDS: LISINOPRIL 20 MG TABLET (FP) PO SCH (10:49)
[2017-12-25 11:35] VITALS: BP 110/61; PULSE 65; TEMP 98.5
--- NOTE | 2017-12-28 10:16 | PATH ---
Cytology Non-Gynecological Report Patient Name: JAYSON STRAUSS Med. Rec. #: [id number] /Age/Gender: 1960 (Age: 57) / M Account: [id number] Location: [facility] MED/SURG Taken: 12/23/2017 Received: 12/27/2017 Reported: 12/28/2017 Physicians: Jg Flores M.D. Specimen(s) Received RLQ ASCITES BODY FLUID Clinical History Ascites, cirrhosis Final Diagnosis ABDOMINAL FLUID, RIGHT LOWER QUADRANT, PARACENTESIS: SATISFACTORY FOR EVALUATION. NO MALIGNANT CELLS IDENTIFIED. MESOTHELIAL CELLS PRESENT. Electronically Signed Chrissie Cassidy M.D. Gross Description Approximately 20 cc of yellow fluid received fixed in 50% alcohol. Approximately 6000 cc of yellow fluid received fresh. Two cytofunnels and one cellblock prepared.
== END 2017-12-25 13:40 | disposition home health service (06) | DRG 435 ==
LOC: JER 08:38 → JERBED 16:25 → OBSVTOIN 18:05 → J8W 21:35
PROVIDERS: ADMIT Family Medicine; ATTEND Family Medicine
PROC: 30233N1 Transfusion of Nonautologous Red Blood Cells into Peripheral Vein, Percutaneous Approach (ICD-10-PCS; 2017-12-21)
PROC: 0W9G3ZX Drainage of Peritoneal Cavity, Percutaneous Approach, Diagnostic (ICD-10-PCS; principal; 2017-12-23)
DX: C22.0 Liver cell carcinoma (principal); I81 Portal vein thrombosis; R18.8 Other ascites; N17.9 Acute kidney failure, unspecified; I85.10 Secondary esophageal varices without bleeding; K76.6 Portal hypertension; D68.9 Coagulation defect, unspecified; L97.529 Non-pressure chronic ulcer of other part of left foot with unspecified severity; K74.60 Unspecified cirrhosis of liver; E11.621 Type 2 diabetes mellitus with foot ulcer; K75.81 Nonalcoholic steatohepatitis (NASH); D73.1 Hypersplenism; E10.65 Type 1 diabetes mellitus with hyperglycemia; D69.6 Thrombocytopenia, unspecified; D64.9 Anemia, unspecified; E78.5 Hyperlipidemia, unspecified; I10 Essential (primary) hypertension
CPT/HCPCS: 36415; 36430; 71045-TC-FY; 74019-TC-FY; 76098-TC-FY; 76942-TC; 80048; 80053; 82042; 82140; 82150; 82550; 82607; 82728; 82746; 82945; 82962; 83540; 83550; 83615; 83690; 84157; 84443; 84484; 85025; 85027; 85610; 86850; 86900; 86901; 86922; 87070; 87075; 87102; 87116; 87205; 87206; 87210; 88108; 88305-TC; 89051; 93005; 93010; 97116-GP; 97161-GP; 99283-25; G0378; G0480; J1644; P9038; P9058

== ENCOUNTER 2018-02-17 14:04 | Inpatient (IN) | payer MEDICARE, OTHER ==
--- NOTE | 2018-02-17 16:03 | PDOC ---
History of Present Illness - General Chief Complaint: Wound Stated Complaint: WOUND Time Seen by Provider: 02/17/18 16:02 History Source: Patient Exam Limitations: No Limitations - History of Present Illness Initial Comments: 02/17/18 16:02 CHIEF COMPLAINT: Wound HISTORY OF PRESENT ILLNESS: This is a 58-year-old male with a history of hypertension, HCC s/p transhepatic heat ablations at [facility], ascites s/p mult IR paracentesis (last 12/2017), esophageal varices s/p banding, IDDM, anemia requiring transfusion, PVD, and diabetic foot ulcers referred by his math and science division chair and vascular surgeon for admission for OR debridement of left lateral fifth digit ulcer. He also notes increasing abdominal distention causing shortness of breath and difficulty laying flat. PCP: Dr. Duran Tie Hacker: Dr. Aguirre Vascular surgeon: Dr. Gasca REVIEW OF SYSTEMS: GENERAL/CONSTITUTIONAL: No fever or chills. No weakness. No weight change. HEAD, EYES, EARS, NOSE AND THROAT: No change in vision. No ear pain or discharge. No sore throat. CARDIOVASCULAR: No chest pain or palpitations. RESPIRATORY: No cough or wheezing. Dyspnea on minimal exertion and when laying falt. GASTROINTESTINAL: No nausea, vomiting, diarrhea or constipation. GENITOURINARY: No dysuria, frequency, or change in urination. MUSCULOSKELETAL: No joint or muscle swelling or pain. No neck or back pain. SKIN: No rash or easy bruising. NEUROLOGIC: No headache, vertigo, loss of consciousness, or loss of sensation. PSYCHIATRIC: No depression or anxiety. ENDOCRINE: No increased thirst. No abnormal weight change. HEMATOLOGIC/LYMPHATIC: History of anemia requiring transfusions. Easy bleeding, or history of blood clots. ALLERGIC/IMMUNOLOGIC: No hives or skin allergy. No latex allergy. PHYSICAL EXAM: GENERAL: The patient is awake, alert, and fully oriented, in no acute distress. HEAD: Normal with no signs of trauma. ENT: Pupils equal, round and reactive to light, extraocular movements intact, sclera anicteric, conjunctiva clear. Neck supple. LUNGS: Clear to auscultation bilaterally. Normal excursion. No respiratory distress or use of accessory muscles. CV: RRR, S1/S2, no MRG. Cap refill < 2 sec. ABDOMEN: Distended with fluid wave. EXTREMITIES: Normal range of motion 1+ LLE edema, trace RLE edema. S/p right 2nd and 3rd toe amputations, left 4th and 5th amputations. Ulceration at 5th toe stump site with some yellow pus oozing, probes to bone. NEUROLOGICAL: Normal speech, normal gait. CN II-XII grossly intact. PSYCH: Normal mood, normal affect. SKIN: Warm, dry, normal turgor. Past History - Past Medical History Allergies/Adverse Reactions: Allergies Allergy/AdvReac Type Severity Reaction Status Date / Time Iodinated Contrast- Oral and Allergy Verified 02/17/18 14:11 IV Dye [Iodinated Contrast Media - IV Dye] Home Medications: Ambulatory Orders oxyCODONE HCL [Roxicodone -] 5 mg PO Q6H #20 tablet MDD 4 12/09/17 Aspirin [ASA -] 81 mg PO DAILY 12/20/17 Atorvastatin Ca [Lipitor] 10 mg PO DAILY 12/20/17 Furosemide [Lasix -] 40 mg PO BID 12/20/17 Lisinopril 20 mg PO DAILY 12/20/17 Multivitamins [Multivit ([facility] Formulary)] 1 tab PO DAILY 12/20/17 Nadolol 20 mg PO DAILY 12/20/17 Nateglinide [Starlix (Nf) -] 60 mg PO TID 12/20/17 Pantoprazole Sodium [Protonix -] 40 mg PO DAILY 12/20/17 Ranolazine [Ranexa -] 1,000 mg PO BID 12/20/17 Rifaximin [Xifaxan -] 550 mg PO BID 12/20/17 Spironolactone 50 mg PO DAILY 12/20/17 metFORMIN HCL [Metformin HCl] 500 mg PO BID 12/20/17 Insulin (Levemir) [Levemir Vial] 10 units SQ HS units 12/25/17 Lactulose (Oral Use) [Cephulac -] 20 gm PO TID udc 12/25/17 Anemia: Yes Asthma: No Cancer: Yes (LIVER) Cardiac Disorders: Yes (Stents 2006) CVA: Yes COPD: No CHF: No DVT: No Dementia: No Diabetes: Yes GI Disorders: Yes (ESOPHAGEAL VARICES,GASTRITIS) Disorders: No HTN: Yes Hypercholesterolemia: Yes Liver Disease: Yes (HEPATIC ENCEPHALOPATHY) Seizures: No Thyroid Disease: No - Surgical History Abdominal Surgery: No Appendectomy: No Cardiac Surgery: Yes (CARDIAC STENTS) Cholecystectomy: Yes Lung Surgery: No Neurologic Surgery: No Orthopedic Surgery: No - Immunization History Immunization Up to Date: Yes - Suicide/Smoking/Psychosocial Hx Smoking Status: No Smoking History: Never smoked Have you smoked in the past 12 months: No Number of Cigarettes Smoked Daily: 0 Cigars Per Day: 0 Hx Alcohol Use: No Drug/Substance Use Hx: No Substance Use Type: None Hx Substance Use Treatment: No *Physical Exam - Vital Signs Last Vital Signs Temp Pulse Resp BP Pulse Ox 98.2 F 52 L 18 112/54 L 100 02/17/18 14:12 02/17/18 14:12 02/17/18 14:12 02/17/18 14:12 02/17/18 14:12 ED Treatment Course - LABORATORY CBC & Chemistry Diagram: 02/17/18 16:30 02/17/18 16:30 Medical Decision Making - Medical Decision Making 02/17/18 16:56 A/P: 4-year-old male for admission for operative debridement of left diabetic foot ulcer. Also with symptomatic ascites. 1. EKG 2. Preop labs 3. Chest x-ray 4. Oxycodone 5 mg for pain 5. IR paracentesis-spoke with department and will place on schedule for Tuesday 5. Admit 02/17/18 17:22 Labs notable for hgb 7.0 - will transfuse 1 unit PRBC given dyspnea, pre-op status Cr 2.0, up from baseline of 1.2 - 1.4 WBC 12.1 *DC/Admit/Observation/Transfer Diagnosis at time of Disposition: Anemia requiring transfusions Ascites Qualifiers: Ascites type: malignant Qualified Code(s): R18.0 - Malignant ascites Dyspnea Qualifiers: Dyspnea type: dyspnea on exertion Qualified Code(s): R06.09 - Other forms of dyspnea Ulcer of left foot Qualifiers: Non-pressure ulcer stage: with necrosis of bone Qualified Code(s): L97.524 - Non-pressure chronic ulcer of other part of left foot with necrosis of bone Leukocytosis Qualifiers: Leukocytosis type: unspecified Qualified Code(s): D72.829 - Elevated white blood cell count, unspecified - Discharge Dispostion Condition at time of disposition: Guarded Decision to Admit order: Yes - Referrals Referrals: Roxanne Duran MD [Primary Care Provider] - - Patient Instructions - Post Discharge Activity
[2018-02-17 16:43] LABS: BASO % 0.3 % (0-2.0); EOS % 0.4 % (0-4.5); HEMATOCRIT 21.1 % (35.4-49); LYMPH % 4.8 % (8-40); MCH 30.5 pg (25.7-33.7); MCHC 33.2 g/dl (32.0-35.9); MEAN CELL VOLUME 91.9 fl (80-96); MONO % 8.5 % (3.8-10.2); PLATELET COUNT 124 K/MM3 (134-434); RDW 18.3 % (11.9-15.9); WHITE BLOOD COUNT 12.8 K/mm3 (4.0-10.0)
[2018-02-17] MEDS ORDERED: oxyCODONE HCL 5 MG TABLET PO ONE (16:51)
[2018-02-17 16:57] LABS: INR 1.25 (0.83-1.09); PROTHROMBIN TIME (PATIENT) 14.8 SEC (9.7-13.0)
[2018-02-17 17:08] LABS: ALK PHOS 222 U/L (45-117); ANION GAP 8 MMOL/L (8-16); BILIRUBIN,TOTAL 3.8 mg/dL (0.2-1); BLOOD UREA NITROGEN 41 mg/dL (7-18); CALCIUM 8.5 mg/dL (8.5-10.1); CHLORIDE 105 mmol/L (98-107); CO2 21 mmol/L (21-32); GLUCOSE,RANDOM 145 mg/dL (74-106); POTASSIUM 5.1 mmol/L (3.5-5.1); SGOT/AST 43 U/L (15-37); SGPT/ALT 23 U/L (13-61); SODIUM 135 mmol/L (136-145); TOT PROT 7.6 g/dl (6.4-8.2)
[2018-02-17] MEDS ORDERED: oxyCODONE HCL 5 MG TABLET ONE (18:10)
--- NOTE | 2018-02-17 20:50 | HP ---
CHIEF COMPLAINT: abdominal distention PCP: Renee, Vascular Surgery: Campos, Podiatry: Timothy HISTORY OF PRESENT ILLNESS: This is a 58 year old male with multiple medical problems including HERNANDEZ, HCC with ascites, DM with foot ulcer who presented to the ED from wound clinic for admission for debridement of foot ulcer for medical optimization. Pt reports increasing abdominal girth/distention with associated increased "liver" pain. He denies SOB, CP, palpitations. He reports taking aleve daily for the pain. ER course was notable for: (1) BUN/Cr 41/2.0 (2) Hgb 7.0 Recent Travel: pt denies PAST MEDICAL HISTORY: HTN, HLD, CAD, anemia, HCC s/p heat ablations at [facility], HERNANDEZ, ascites, esophageal varices s/p banding, DM, PVD, diabetic foot ulcers PAST SURGICAL HISTORY: cardiac stents 2006 L anterior tibial artherectomy and angioplasty L TP trunk atherectomy with DCB angioplasty L 4th, 5th toe amputations, L 5th metatarsal resection R 2nd, 3rd toe amputations cholcystectomy Social History: Smoking: pt denies Alcohol: pt denies Drugs: pt denies Family History: mother s/p BrCA father , complications of ETOH brother s/p alcholic cirrhosis brother complications of infection brother alive, s/p CVA Allergies Iodinated Contrast- Oral and IV Dye [Iodinated Contrast Media - IV Dye] Allergy (Verified 02/17/18 14:11) HOME MEDICATIONS: 3 Medication Instructions Recorded Aspirin [ASA -] 81 mg PO DAILY 12/20/17 Atorvastatin Ca [Lipitor] 10 mg PO DAILY 12/20/17 Furosemide [Lasix -] 40 mg PO BID 12/20/17 Lisinopril 20 mg PO DAILY 12/20/17 Multivitamins [Multivit ([facility] 1 tab PO DAILY 12/20/17 Formulary)] Nadolol 20 mg PO DAILY 12/20/17 Nateglinide [Starlix (Nf) -] 60 mg PO TID 12/20/17 Pantoprazole Sodium [Protonix -] 40 mg PO DAILY 12/20/17 Ranolazine [Ranexa -] 1,000 mg PO BID 12/20/17 Rifaximin [Xifaxan -] 550 mg PO BID 12/20/17 Spironolactone 50 mg PO DAILY 12/20/17 metFORMIN HCL [Metformin HCl] 500 mg PO BID 12/20/17 Insulin (Levemir) [Levemir Vial] 10 units SQ HS units 12/25/17 Lactulose (Oral Use) [Cephulac -] 20 gm PO TID udc 12/25/17 REVIEW OF SYSTEMS CONSTITUTIONAL: Absent: fever, chills, diaphoresis, generalized weakness, malaise, loss of appetite, weight change HEENT: Absent: rhinorrhea, nasal congestion, throat pain, throat swelling, difficulty swallowing, mouth swelling, ear pain, eye pain, visual changes CARDIOVASCULAR: Absent: chest pain, syncope, palpitations, irregular heart rate, lightheadedness , peripheral edema RESPIRATORY: Absent: cough, shortness of breath, dyspnea with exertion, orthopnea, wheezing, stridor, hemoptysis GASTROINTESTINAL: Present: abdominal pain, abdominal distension Absent: nausea, vomiting, diarrhea, constipation, melena, hematochezia GENITOURINARY: Absent: dysuria, frequency, urgency, hesitancy, hematuria, flank pain, genital pain MUSCULOSKELETAL: Absent: myalgia, arthralgia, joint swelling, back pain, neck pain SKIN: Present: foot ulcer Absent: rash, itching, pallor HEMATOLOGIC/IMMUNOLOGIC: Absent: easy bleeding, easy bruising, lymphadenopathy, frequent infections ENDOCRINE: Absent: unexplained weight gain, unexplained weight loss, heat intolerance, cold intolerance NEUROLOGIC: Absent: headache, focal weakness or paresthesias, dizziness, unsteady gait, seizure, mental status changes, bladder or bowel incontinence PSYCHIATRIC: Absent: anxiety, depression, suicidal or homicidal ideation, hallucinations. PHYSICAL EXAMINATION Vital Signs - 24 hr 3 02/17/18 02/17/18 14:12 19:00 Temperature 98.2 F Pulse Rate 52 L Pulse Rate [ 58 L Apical] Respiratory 18 18 Rate Blood Pressure 112/54 L Blood Pressure 122/74 [Right Arm] O2 Sat by Pulse 100 99 Oximetry (%) GENERAL: Awake, alert, and fully oriented, in no acute distress. HEAD: Normal with no signs of trauma. EYES: Pupils equal, round and reactive to light, extraocular movements intact, sclera anicteric, conjunctiva clear. No lid lag. EARS, NOSE, THROAT: Ears normal, nares patent, oropharynx clear without exudates. Moist mucous membranes. NECK: Normal range of motion, supple without lymphadenopathy, JVD, or masses. LUNGS: Breath sounds equal, clear to auscultation bilaterally. No wheezes, and no crackles. No accessory muscle use. HEART: Regular rate and rhythm, normal S1 and S2 without murmur, rub or gallop. ABDOMEN: Softly distended, nontender, normoactive bowel sounds, no guarding, no rebound, no masses. + ascites, + prominent superficial veins noted on inspection MUSCULOSKELETAL: Normal range of motion at all joints. No bony deformities or tenderness. No CVA tenderness. UPPER EXTREMITIES: 2+ pulses, warm, well-perfused. No cyanosis. No clubbing. No peripheral edema. LOWER EXTREMITIES: 2+ pulses, warm, well-perfused. No calf tenderness. No peripheral edema. NEUROLOGICAL: Cranial nerves II-XII intact. Normal speech. PSYCHIATRIC: Cooperative. Good eye contact. Appropriate mood and affect. SKIN: Warm, dry, normal turgor, no rashes or lesions noted, normal capillary refill. Laboratory Results - last 24 hr 3 02/17/18 02/17/18 02/17/18 16:30 16:30 16:30 WBC 12.8 H RBC 2.30 L Hgb 7.0 L Hct 21.1 L D MCV 91.9 MCH 30.5 MCHC 33.2 RDW 18.3 H Plt Count 124 L D MPV 7.0 L D Absolute Neuts (auto) 11.0 H Neutrophils % 86.0 H Lymphocytes % 4.8 L D Monocytes % 8.5 Eosinophils % 0.4 Basophils % 0.3 Nucleated RBC % 0 PT with INR 14.80 H INR 1.25 H Sodium 135 L Potassium 5.1 Chloride 105 Carbon Dioxide 21 Anion Gap 8 BUN 41 H Creatinine 2.0 H Creat Clearance w eGFR 34.25 Random Glucose 145 H Calcium 8.5 Total Bilirubin 3.8 H AST 43 H ALT 23 Alkaline Phosphatase 222 H Total Protein 7.6 Albumin 2.0 L Blood Type A POSITIVE Antibody Screen Negative Crossmatch See Detail ASSESSMENT/PLAN: 58yM with PMH HTN, HLD, CAD, anemia, HCC s/p heat ablations at [facility], HERNANDEZ, ascites, esophageal varices s/p banding, DM, PVD, diabetic foot ulcers presented to the ED with foot ulcer for debridement requiring optimization of medical conditions prior. diabetic foot ulcer - cont santyl - podiatry and vascular surgery consult - for debridement ascites - consult for IR drainage HERNANDEZ/hepatocellullar CA with esophageal varices - cont home lasix, aldactone, rifaximin, lactulose, nadolol - check ammonia level in am - no s/s hepatic encephalopathy at present. SHANEKA - pt has been taking aleve at home, DC same - monitor off nSAIDs - renal consult anemia - 1uPRBC, repeat CBC in am HTN/HLD/CAD - cont home meds: ASA, lipitor, ranexa, lisinopril, nadolol DM - hold home po hyoglycemics - cont levemir - BGM AC/HS with novolog sliding scale DVT PPX - heparin deferred in setting of anemia requiring PRBC with h/o varices FEN - tolerating po - BMP in AM - diabetic diet as tolerated Dispo: pt currently requires further inpatient management of his emergent condition Visit type - Emergency Visit Emergency Visit: Yes ED Registration Date: 02/17/18 Care time: The patient presented to the Emergency Department on the above date and was hospitalized for further evaluation of their emergent condition. - New Patient This patient is new to me today: Yes Date on this admission: 02/17/18 - Critical Care Critical Care patient: No
[2018-02-17] MEDS ORDERED: RANOLAZINE E.R. 500 MG TABLET (FP) ONE ×2 (22:36→22:46)
[2018-02-17] MEDS: RIFAXIMIN 550 MG TABLET (UD) PO SCH (22:41)
[2018-02-17] MEDS: LACTULOSE 20 GM/30 ML UDC (FOR ORAL USE ONLY) PO SCH ×2 (22:41→22:54)
[2018-02-17] MEDS: ATORVASTATIN CA 10 MG TABLET (FP) PO SCH (22:41)
[2018-02-17] MEDS: RANOLAZINE E.R. 1,000 MG TABLET (FP) PO SCH (22:42)
[2018-02-17] MEDS: INSULIN SLIDING SCALE (NOVOLOG) 1 VIAL SQ SCH (22:48)
[2018-02-17] MEDS: oxyCODONE HCL 5 MG TABLET PO PRN (22:48)
[2018-02-17] MEDS: INSULIN (LEVEMIR) 100 UNITS/ML UNITS SQ SCH (22:49)
[2018-02-18] MEDS: LACTULOSE 20 GM/30 ML UDC (FOR ORAL USE ONLY) PO SCH ×3 (05:36→23:05)
[2018-02-18] MEDS ORDERED: INSULIN (NOVOLOG) ASPART 100 UNITS/ML 10ML VIAL ONE ×2 (05:40→23:15)
[2018-02-18] MEDS: FUROSEMIDE 40 MG TABLET (FP) PO SCH ×2 (05:42→14:06)
[2018-02-18] MEDS: INSULIN SLIDING SCALE (NOVOLOG) 1 VIAL SQ SCH ×5 (06:52→23:12)
[2018-02-18 07:58] LABS: BASO % 0.3 % (0-2.0); HEMATOCRIT 22.1 % (35.4-49); HEMOGLOBIN 7.3 GM/dL (11.7-16.9); LYMPH % 6.9 % (8-40); MCH 29.9 pg (25.7-33.7); MCHC 32.7 g/dl (32.0-35.9); MEAN CELL VOLUME 91.4 fl (80-96); MEAN PLT VOLUME 7.3 fl (7.5-11.1); MONO % 7.2 % (3.8-10.2); NEUT % 84.6 % (42.8-82.8); PLATELET COUNT 111 K/MM3 (134-434); RBC 2.42 M/mm3 (4.00-5.60); RDW 17.9 % (11.9-15.9); WHITE BLOOD COUNT 11.2 K/mm3 (4.0-10.0)
[2018-02-18 08:21] LABS: ANION GAP 7 MMOL/L (8-16); BLOOD UREA NITROGEN 41 mg/dL (7-18); CALCIUM 8.4 mg/dL (8.5-10.1); CHLORIDE 106 mmol/L (98-107); CO2 23 mmol/L (21-32); CREATININE 1.8 mg/dL (0.55-1.3); GLUCOSE,RANDOM 138 mg/dL (74-106); MAGNESIUM 2.1 mg/dL (1.8-2.4); PHOSPHOROUS 3.4 mg/dL (2.5-4.9); POTASSIUM 4.3 mmol/L (3.5-5.1); SODIUM 136 mmol/L (136-145)
[2018-02-18] MEDS ORDERED: PATIENT'S OWN MEDICATION (NON-FORMULARY) (Spironolactone [Spironolactone] 50 MG) PO SCH (10:00)
[2018-02-18] MEDS ORDERED: FLU VACCINE QUAD 60 MCG/0.5 ML (MDV 18-19) IM ONE (10:00)
--- NOTE | 2018-02-18 10:17 | PN ---
Progress Note, Physician Chief Complaint: EVENTS AND NOTES REVIEWED PATIENT AWAKE IN MILD-MOD DISTRESS DENIES CHEST PAIN HOWEVER DOES HAVE SOB - Current Medication List Current Medications: Active Medications Aspirin (Asa -) 81 mg PO DAILY [facility] Atorvastatin Calcium (Lipitor -) 10 mg PO HS [facility] Last Admin: 02/17/18 22:41 Dose: 10 mg Collagenase (Santyl -) 1 applic TP DAILY [facility]; Protocol Furosemide (Lasix -) 40 mg PO BIDLASIX [facility] Last Admin: 02/18/18 05:42 Dose: 40 mg Insulin Aspart (Novolog Vial Sliding Scale -) 1 vial SQ ACHS [facility]; Protocol Last Admin: 02/18/18 06:52 Dose: 2 units Insulin Detemir (Levemir Vial) 10 units SQ HS [facility] Last Admin: 02/17/18 22:49 Dose: 10 units Lactulose (Cephulac (Oral Use)) 20 gm PO TID [facility] Last Admin: 02/18/18 05:36 Dose: Not Given Lisinopril (Prinivil) 20 mg PO DAILY [facility] Multivitamins/Minerals/Vitamin C (Tab-A-Vit -) 1 tab PO DAILY [facility] Nadolol (Corgard -) 20 mg PO DAILY [facility] Oxycodone HCl (Roxicodone -) 5 mg PO Q4H PRN PRN Reason: PAIN LEVEL 6-10 Last Admin: 02/17/18 22:48 Dose: 5 mg Pantoprazole Sodium (Protonix -) 40 mg PO DAILY [facility] Ranolazine (Ranexa -) 1,000 mg PO BID [facility] Last Admin: 02/17/18 22:42 Dose: 1,000 mg Rifaximin (Xifaxan -) 550 mg PO BID [facility] Last Admin: 02/17/18 22:41 Dose: 550 mg Spironolactone (Aldactone -) 50 mg PO DAILY [facility] - Objective Vital Signs: Vital Signs Temperature 97.8 F 02/18/18 06:43 Pulse Rate 63 02/18/18 06:43 Respiratory Rate 20 02/18/18 06:43 Blood Pressure 106/66 02/18/18 06:43 O2 Sat by Pulse Oximetry (%) 99 02/17/18 21:00 Constitutional: Yes: Mild Distress Eyes: Yes: WNL HENT: Yes: WNL Neck: Yes: WNL Cardiovascular: Yes: Regular Rate and Rhythm Respiratory: Yes: Diminished, Other Gastrointestinal: Yes: Ascites, Distention, Other Genitourinary: Yes: WNL Musculoskeletal: Yes: Muscle Weakness Extremities: Yes: Amputation, Deformity Edema: Yes Edema: LLE: 2+ Integumentary: Yes: Pressure Ulcer, Rash, Other Wound/Incision: Yes: Dressing Dry and Intact, Unapproximated Neurological: Yes: Pre-Existing Deficit, Weakness ...Motor Strength: LLE, RLE Psychiatric: Yes: Other Labs: CBC, BMP 02/18/18 06:40 02/18/18 06:40 INR, PTT INR 1.25 (0.83-1.09) H 02/17/18 16:30 Problem List - Problems (1) Anemia requiring transfusions Code(s): D64.9 - ANEMIA, UNSPECIFIED (2) Ascites Code(s): R18.8 - OTHER ASCITES Qualifiers: Ascites type: malignant Qualified Code(s): R18.0 - Malignant ascites (3) Diabetic foot ulcer associated with type 2 diabetes mellitus Code(s): E11.621 - TYPE 2 DIABETES MELLITUS WITH FOOT ULCER; L97.509 - NON- PRESSURE CHRONIC ULCER OTH PRT UNSP FOOT W UNSP SEVERITY Qualifiers: Laterality: left (4) Dyspnea Code(s): R06.00 - DYSPNEA, UNSPECIFIED Qualifiers: Dyspnea type: dyspnea on exertion Qualified Code(s): R06.09 - Other forms of dyspnea (5) Leukocytosis Code(s): D72.829 - ELEVATED WHITE BLOOD CELL COUNT, UNSPECIFIED Qualifiers: Leukocytosis type: unspecified Qualified Code(s): D72.829 - Elevated white blood cell count, unspecified (6) PVD (peripheral vascular disease) Code(s): I73.9 - PERIPHERAL VASCULAR DISEASE, UNSPECIFIED (7) Type 2 diabetes mellitus Code(s): E11.9 - TYPE 2 DIABETES MELLITUS WITHOUT COMPLICATIONS (8) Ulcer of left foot Code(s): L97.529 - NON-PRESSURE CHRONIC ULCER OTH PRT LEFT FOOT W UNSP SEVERITY Qualifiers: Non-pressure ulcer stage: with necrosis of bone Qualified Code(s): L97.524 - Non-pressure chronic ulcer of other part of left foot with necrosis of bone (9) SHANEKA (acute kidney injury) Code(s): N17.9 - ACUTE KIDNEY FAILURE, UNSPECIFIED (10) Abdominal distension Code(s): R14.0 - ABDOMINAL DISTENSION (GASEOUS) (11) Ascites due to alcoholic cirrhosis Code(s): K70.31 - ALCOHOLIC CIRRHOSIS OF LIVER WITH ASCITES (12) Atherosclerosis Code(s): I70.90 - UNSPECIFIED ATHEROSCLEROSIS (13) Atherosclerotic PVD with ulceration Code(s): I70.209 - UNSP ATHSCL [place]K ARTERIES OF EXTREMITIES, UNSP EXTREMITY; L98.499 - NON-PRESSURE CHRONIC ULCER OF SKIN OF SITES W UNSP SEVERITY (14) Hepatic encephalopathy Code(s): K72.90 - HEPATIC FAILURE, UNSPECIFIED WITHOUT COMA Assessment/Plan IV ABX FOR WOUND INFECTION PVD WITH PODIATRY/VASC SX F/U FOR SX ASCITES NEEDS PARACENTESIS WITH IR ID CONSULT ORDERED DVT PROPHYLAXIS OOB TO CHAIR WITH ASSIST ANEMIA TRANSFUSE PRBC NEEDED STOOL FOR OCCULT SCREEN DM ON SSI/LEVEMIR/ADA/BGM CHECKS LAST A1C % 5.0
[2018-02-18] MEDS ORDERED: RANOLAZINE E.R. 500 MG TABLET (FP) ONE ×2 (10:48→23:01)
[2018-02-18] MEDS: LISINOPRIL 20 MG TABLET (FP) PO SCH (10:52)
[2018-02-18] MEDS: NADOLOL 20 MG TABLET (FP) PO SCH (10:52)
[2018-02-18] MEDS: ASPIRIN 81 MG CHEWABLE TABLETS PO SCH (10:52)
[2018-02-18] MEDS: PANTOPRAZOLE 40 MG TABLET (FP) PO SCH (10:53)
[2018-02-18] MEDS: RIFAXIMIN 550 MG TABLET (UD) PO SCH ×2 (10:53→23:08)
[2018-02-18] MEDS: MULTIVITAMINS (DAILY MVI) TABLET (FP) PO SCH (10:54)
[2018-02-18] MEDS: SPIRONOLACTONE 25 MG TABLET (FP) PO SCH (10:54)
[2018-02-18] MEDS: COLLAGENASE CLOSTRIDIUM HIST. 30 GRAMS TUBE TP SCH (11:01)
[2018-02-18] MEDS: RANOLAZINE E.R. 1,000 MG TABLET (FP) PO SCH ×2 (11:05→23:18)
--- NOTE | 2018-02-18 13:44 | CON.ID ---
Consult Consult Specialty:: infectious disease Referred by:: virgen Reason for Consultation:: diabetic foot ulcer - History of Present Illness Chief Complaint: diabetic foot ulcer, ascites History of Present Illness: 58 year old man pmh recurrent diabetic foot infection left foot- history of mssa osteo, mrsa osteo, last completed antibiotics over one month ago followed in wound care by dr mancera and dr monge no fevers sent for medical optiomization prior to foot surgery no fevers, no drainage from the foot c/o discomfort from abdominal distention history from patient and at bedside - History Source History Provided By: Patient, Family Member Limitations to Obtaining History: No Limitations - Past Medical History 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 Cardio/Vascular: Yes: CAD, HTN, Hyperlipdemia Gastrointestinal: Yes: Ascites, Esophageal Varices, Gastritis, GI Bleed, Hemorrhoids, Other Hepatobiliary: Yes: Cirrhosis (h/o esophageal varices s/p banding, related to HERNANDEZ), Cholelithiasis (s/p lap choly), Other (PORTAL VEIN PARTIAL THROMBOSIS, HCC treated with transhepatic heat ablations at [facility]) Renal/: Yes: Renal Inusuff Heme/Onc: Yes: Cancer (HCC) Infectious Disease: Yes: MRSA, Other (osteomyelitis left foot ) Endocrine: Yes: Diabetes Mellitus - Past Surgical History Past Surgical History: Yes: Amputation (left toe #4, right toes #2,3), Cholecystectomy, Colonoscopy, Hernia Repair, Upper Endoscopy - Alcohol/Substance Use Hx Alcohol Use: No History of Substance Use: reports: None - Smoking History Smoking history: Never smoked Have you smoked in the past 12 months: No Aproximately how many cigarettes per day: 0 - Social History Usual Living Arrangement: With Spouse ADL: Independent 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 [employer] History of Recent Travel: No Home Medications - Allergies Allergies/Adverse Reactions: Allergies Allergy/AdvReac Type Severity Reaction Status Date / Time Iodinated Contrast- Oral and Allergy Verified 02/17/18 14:11 IV Dye [Iodinated Contrast Media - IV Dye] - Home Medications Home Medications: Ambulatory Orders Aspirin [ASA -] 81 mg PO DAILY 12/20/17 Atorvastatin Ca [Lipitor] 10 mg PO DAILY 12/20/17 Furosemide [Lasix -] 40 mg PO BID 12/20/17 Lisinopril 20 mg PO DAILY 12/20/17 Multivitamins [Multivit ([facility] Formulary)] 1 tab PO DAILY 12/20/17 Nadolol 20 mg PO DAILY 12/20/17 Nateglinide [Starlix (Nf) -] 60 mg PO TID 12/20/17 Pantoprazole Sodium [Protonix -] 40 mg PO DAILY 12/20/17 Ranolazine [Ranexa -] 1,000 mg PO BID 12/20/17 Rifaximin [Xifaxan -] 550 mg PO BID 12/20/17 Spironolactone 50 mg PO DAILY 12/20/17 metFORMIN HCL [Metformin HCl] 500 mg PO BID 12/20/17 Insulin (Levemir) [Levemir Vial] 10 units SQ HS units 12/25/17 Lactulose (Oral Use) [Cephulac -] 20 gm PO TID udc 12/25/17 Family Disease History - Family Disease History Family Disease History: Diabetes: Brother (alcoholic cirrhosis), Sister, CA: Mother (breast Ca), Other: Father ( from alcohol related complications) Review of Systems - Review of Systems Constitutional: reports: No Symptoms Eyes: reports: No Symptoms HENT: reports: No Symptoms Neck: reports: No Symptoms Cardiovascular: reports: No Symptoms Respiratory: reports: No Symptoms Gastrointestinal: reports: Other (abdominal distention) Genitourinary: reports: No Symptoms Physical Exam Vital Signs: Vital Signs Temperature 97.8 F 02/18/18 06:43 Pulse Rate 63 02/18/18 06:43 Respiratory Rate 20 02/18/18 06:43 Blood Pressure 106/66 02/18/18 06:43 O2 Sat by Pulse Oximetry (%) 99 02/17/18 21:00 Constitutional: Yes: Well Nourished, No Distress, Calm Eyes: Yes: Conjunctiva Clear HENT: Yes: Atraumatic, Normocephalic Neck: Yes: Supple Cardiovascular: Yes: Regular Rate and Rhythm Respiratory: Yes: Regular, CTA Bilaterally, Diminished (at bases) Gastrointestinal: Yes: Normal Bowel Sounds, Soft, Ascites. No: Tenderness ...Rectal Exam: Yes: Deferred Edema: No Wound/Incision: Yes: Other (right foot second/third toe amputation well healed left foot 4/5 amputation , open wound no drainage, no erythema) Psychiatric: Yes: Alert Labs: CBC, BMP 02/18/18 06:40 02/18/18 06:40 Imaging - Results Chest X-ray: Report Reviewed, Image Reviewed Problem List - Problems (1) Diabetic foot ulcer associated with type 2 diabetes mellitus Code(s): E11.621 - TYPE 2 DIABETES MELLITUS WITH FOOT ULCER; L97.509 - NON- PRESSURE CHRONIC ULCER OTH PRT UNSP FOOT W UNSP SEVERITY Qualifiers: Laterality: left (2) Ascites Code(s): R18.8 - OTHER ASCITES Qualifiers: Ascites type: malignant Qualified Code(s): R18.0 - Malignant ascites (3) Hepatocellular carcinoma Code(s): C22.0 - LIVER CELL CARCINOMA Assessment/Plan await vascular and podiatry evaluation hold empiric antiibotics for now suggest getting operative cultures as this has now evolved into a chronic process check crp, suspect esr will be high due to chronic anemia ?need for MRI- will d/w podiatry for paracentesis on Tuesday
--- NOTE | 2018-02-18 14:35 | CONSULT ---
Consult - text type - Consultation Consultation Note: Podiatry Consultation: 58 year old DM, PVD M, well known to me from wound healing, presents for admission with ascites abdomen. Patient has significant podiatric history, including multiple amputations and debridements of L foot. He denies F/V/C/ SOB. Afebrile. PMHx: DM, HTN, PVD, HCC with ascites Meds: noted ALL: contrast GEORGE: L foot: pedal pulses nonpalpable. Lateral ray diabetic ulcer fibrogranular base , probing to bone at proximal aspect of ulcer, no purulent drainage, no fluctuance, no streaking cellulitis, no signs of active infection. Moderate tenderness to palpation. Imp: 58 year old DM, PVD M with L foot diabetic ulcer, chronic osteomyelitis 1. IV abx 2. LOcal wound care santyl 3. For tap of ascites 4. Likely for angio with Dr. Gasca 5. Once vascular cleared will need OR debridement, abx beads, +/- graft placement Angel Aguirre DPM
--- NOTE | 2018-02-18 17:04 | EKG ---
Test Reason : Blood Pressure : / mmHG Vent. Rate : 056 BPM Atrial Rate : 056 BPM P-R Int : 182 ms QRS Dur : 120 ms QT Int : 488 ms P-R-T Axes : 021 -36 047 degrees QTc Int : 470 ms SINUS BRADYCARDIA LEFT AXIS DEVIATION LEFT VENTRICULAR HYPERTROPHY WITH QRS WIDENING POOR R WAVE PROGRESSION ABNORMAL ECG WHEN COMPARED WITH ECG OF 20-DEC-2017 20:21, NO SIGNIFICANT CHANGE WAS FOUND Confirmed by DASH SÁNCHEZ, LIZ ([id number]) on 02/18/2018 5:03:30 PM Referred By: Confirmed By:LIZ BOWLING MD
[2018-02-18] MEDS: INSULIN (LEVEMIR) 100 UNITS/ML UNITS SQ SCH (23:07)
[2018-02-18] MEDS: ATORVASTATIN CA 10 MG TABLET (FP) PO SCH (23:07)
[2018-02-18] MEDS ORDERED: PT OWN MED DRAWER 7, Y5N ONE (23:14)
[2018-02-18] MEDS ORDERED: INSULIN (LEVEMIR) 100 UNITS/ML UNITS SQ ONE (23:15)
[2018-02-19] MEDS: oxyCODONE HCL 5 MG TABLET PO PRN ×3 (00:34→14:18)
[2018-02-19] MEDS: FUROSEMIDE 40 MG TABLET (FP) PO SCH ×2 (06:33→14:18)
[2018-02-19] MEDS: LACTULOSE 20 GM/30 ML UDC (FOR ORAL USE ONLY) PO SCH ×3 (06:33→22:48)
[2018-02-19] MEDS: INSULIN SLIDING SCALE (NOVOLOG) 1 VIAL SQ SCH ×4 (06:35→23:01)
[2018-02-19 07:50] LABS: HEMATOCRIT 21.3 % (35.4-49); HEMOGLOBIN 7.1 GM/dL (11.7-16.9); MCHC 33.2 g/dl (32.0-35.9); MEAN CELL VOLUME 90.3 fl (80-96); MEAN PLT VOLUME 7.3 fl (7.5-11.1); PLATELET COUNT 105 K/MM3 (134-434); RBC 2.36 M/mm3 (4.00-5.60); RDW 18.7 % (11.9-15.9); WHITE BLOOD COUNT 12.5 K/mm3 (4.0-10.0)
[2018-02-19 08:22] LABS: ANION GAP 7 MMOL/L (8-16); BLOOD UREA NITROGEN 45 mg/dL (7-18); CALCIUM 8.1 mg/dL (8.5-10.1); CHLORIDE 106 mmol/L (98-107); CO2 21 mmol/L (21-32); GLUCOSE,RANDOM 132 mg/dL (74-106); POTASSIUM 4.8 mmol/L (3.5-5.1); SODIUM 134 mmol/L (136-145)
[2018-02-19] MEDS ORDERED: PT OWN MED DRAWER 7, Y5N ONE (10:20)
[2018-02-19] MEDS ORDERED: RANOLAZINE E.R. 500 MG TABLET (FP) ONE ×2 (10:20→22:28)
[2018-02-19] MEDS: PANTOPRAZOLE 40 MG TABLET (FP) PO SCH (10:23)
[2018-02-19] MEDS: ASPIRIN 81 MG CHEWABLE TABLETS PO SCH (10:23)
[2018-02-19] MEDS: SPIRONOLACTONE 25 MG TABLET (FP) PO SCH (10:23)
[2018-02-19] MEDS: RIFAXIMIN 550 MG TABLET (UD) PO SCH ×2 (10:23→22:50)
[2018-02-19] MEDS: NADOLOL 20 MG TABLET (FP) PO SCH (10:23)
[2018-02-19] MEDS: RANOLAZINE E.R. 1,000 MG TABLET (FP) PO SCH ×2 (10:23→23:01)
[2018-02-19] MEDS: LISINOPRIL 20 MG TABLET (FP) PO SCH (10:23)
[2018-02-19] MEDS: MULTIVITAMINS (DAILY MVI) TABLET (FP) PO SCH (10:23)
[2018-02-19] MEDS: COLLAGENASE CLOSTRIDIUM HIST. 30 GRAMS TUBE TP SCH (10:24)
--- NOTE | 2018-02-19 10:48 | PN ---
Progress Note, Physician Chief Complaint: EVENTS AND NOTED REVIEWED AWAKE AND ALERT, NAD TOLERATING DIET C/O R LOWER BACK PAIN X THIS MORNING REFUSING LACTULOSE X 1DOSE - Current Medication List Current Medications: Active Medications Aspirin (Asa -) 81 mg PO DAILY [facility] Last Admin: 02/19/18 10:23 Dose: 81 mg Atorvastatin Calcium (Lipitor -) 10 mg PO HS [facility] Last Admin: 02/18/18 23:07 Dose: 10 mg Collagenase (Santyl -) 1 applic TP DAILY [facility]; Protocol Last Admin: 02/19/18 10:24 Dose: 1 applic Furosemide (Lasix -) 40 mg PO BIDLASIX [facility] Last Admin: 02/19/18 06:33 Dose: 40 mg Insulin Aspart (Novolog Vial Sliding Scale -) 1 vial SQ ACHS [facility]; Protocol Last Admin: 02/19/18 06:35 Dose: Not Given Insulin Detemir (Levemir Vial) 10 units SQ HS [facility] Last Admin: 02/18/18 23:07 Dose: 10 units Lactulose (Cephulac (Oral Use)) 20 gm PO TID [facility] Last Admin: 02/19/18 06:33 Dose: Not Given Lisinopril (Prinivil) 20 mg PO DAILY [facility] Last Admin: 02/19/18 10:23 Dose: 20 mg Multivitamins/Minerals/Vitamin C (Tab-A-Vit -) 1 tab PO DAILY [facility] Last Admin: 02/19/18 10:23 Dose: 1 tab Nadolol (Corgard -) 20 mg PO DAILY [facility] Last Admin: 02/19/18 10:23 Dose: 20 mg Oxycodone HCl (Roxicodone -) 5 mg PO Q4H PRN PRN Reason: PAIN LEVEL 6-10 Last Admin: 02/19/18 09:44 Dose: 5 mg Pantoprazole Sodium (Protonix -) 40 mg PO DAILY [facility] Last Admin: 02/19/18 10:23 Dose: 40 mg Ranolazine (Ranexa -) 1,000 mg PO BID [facility] Last Admin: 02/19/18 10:23 Dose: 1,000 mg Rifaximin (Xifaxan -) 550 mg PO BID [facility] Last Admin: 02/19/18 10:23 Dose: 550 mg Spironolactone (Aldactone -) 50 mg PO DAILY [facility] Last Admin: 02/19/18 10:23 Dose: 50 mg - Objective Vital Signs: Vital Signs Temperature 98.5 F 02/19/18 06:00 Pulse Rate 60 02/19/18 06:00 Respiratory Rate 20 02/19/18 06:00 Blood Pressure 102/55 L 02/19/18 06:00 O2 Sat by Pulse Oximetry (%) 98 02/18/18 21:00 Constitutional: Yes: No Distress Eyes: Yes: WNL Cardiovascular: Yes: Regular Rate and Rhythm Respiratory: Yes: Diminished Gastrointestinal: Yes: Ascites, Distention Musculoskeletal: Yes: Muscle Weakness Edema: No Wound/Incision: Yes: Dressing Dry and Intact Neurological: Yes: Weakness Labs: CBC, BMP 02/19/18 07:00 02/19/18 07:00 INR, PTT INR 1.25 (0.83-1.09) H 02/17/18 16:30 Problem List - Problems (1) Anemia requiring transfusions Code(s): D64.9 - ANEMIA, UNSPECIFIED (2) Ascites Code(s): R18.8 - OTHER ASCITES Qualifiers: Ascites type: malignant Qualified Code(s): R18.0 - Malignant ascites (3) Diabetic foot ulcer associated with type 2 diabetes mellitus Code(s): E11.621 - TYPE 2 DIABETES MELLITUS WITH FOOT ULCER; L97.509 - NON- PRESSURE CHRONIC ULCER OTH PRT UNSP FOOT W UNSP SEVERITY Qualifiers: Laterality: left (4) Dyspnea Code(s): R06.00 - DYSPNEA, UNSPECIFIED Qualifiers: Dyspnea type: dyspnea on exertion Qualified Code(s): R06.09 - Other forms of dyspnea (5) Leukocytosis Code(s): D72.829 - ELEVATED WHITE BLOOD CELL COUNT, UNSPECIFIED Qualifiers: Leukocytosis type: unspecified Qualified Code(s): D72.829 - Elevated white blood cell count, unspecified (6) PVD (peripheral vascular disease) Code(s): I73.9 - PERIPHERAL VASCULAR DISEASE, UNSPECIFIED (7) Type 2 diabetes mellitus Code(s): E11.9 - TYPE 2 DIABETES MELLITUS WITHOUT COMPLICATIONS (8) Ulcer of left foot Code(s): L97.529 - NON-PRESSURE CHRONIC ULCER OTH PRT LEFT FOOT W UNSP SEVERITY Qualifiers: Non-pressure ulcer stage: with necrosis of bone Qualified Code(s): L97.524 - Non-pressure chronic ulcer of other part of left foot with necrosis of bone (9) SHANEKA (acute kidney injury) Code(s): N17.9 - ACUTE KIDNEY FAILURE, UNSPECIFIED (10) Abdominal distension Code(s): R14.0 - ABDOMINAL DISTENSION (GASEOUS) (11) Ascites due to alcoholic cirrhosis Code(s): K70.31 - ALCOHOLIC CIRRHOSIS OF LIVER WITH ASCITES (12) Atherosclerosis Code(s): I70.90 - UNSPECIFIED ATHEROSCLEROSIS (13) Atherosclerotic PVD with ulceration Code(s): I70.209 - UNSP ATHSCL [place] ARTERIES OF EXTREMITIES, UNSP EXTREMITY; L98.499 - NON-PRESSURE CHRONIC ULCER OF SKIN OF SITES W UNSP SEVERITY (14) Hepatic encephalopathy Code(s): K72.90 - HEPATIC FAILURE, UNSPECIFIED WITHOUT COMA Assessment/Plan FOLLOW UP WITH ID PVD: PODIATRY AND VASCULAR F/U FOR SURGERY ASCITES, PARACENTESIS WITH IR PENDING ANEMIA, MONITOR CBC AND TRANSFUSE WITH PRBC NEEDED OXYCODONE FOR R LOWER BACK PAIN UA/CS TO R/O PYELONEPHRITIS DM ON SSI/LEVEMIR, MONITOR FS DVT PROPHYLAXIS OOB TO CHAIR WITH ASSIST
--- NOTE | 2018-02-19 11:25 | CON.CARD ---
Consult Consult Specialty:: Cardiology Referred by:: Fidencio Reason for Consultation:: CHF - History of Present Illness Chief Complaint: ascites, foot pain History of Present Illness: 58M h/o CAD s/p stents 2007,HERNANDEZ, HCC with ascites, DM, foot ulcer p/w foot ulcer debridement, ascites. Has increasing abdominal girth as well with increased abd pain. no dyspnea, chest pain,palps. He has h/o ascites on spironolactone and lasix, IR paracentesis pending. Also noticed edema for several weeks LLE, foot ulcer on LLE. 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 Cardio/Vascular: Yes: CAD, HTN, Hyperlipdemia Gastrointestinal: Yes: Ascites, Esophageal Varices, Gastritis, GI Bleed, Hemorrhoids, Other Hepatobiliary: Yes: Cirrhosis (h/o esophageal varices s/p banding, related to HERNANDEZ), Cholelithiasis (s/p lap choly), Other (PORTAL VEIN PARTIAL THROMBOSIS, HCC treated with transhepatic heat ablations at [facility]) Renal/: Yes: Renal Inusuff Infectious Disease: Yes: MRSA, Other (osteomyelitis left foot ) Endocrine: Yes: Diabetes Mellitus - Past Surgical History Past Surgical History: Yes: Amputation (left toe #4, right toes #2,3), Cholecystectomy, Colonoscopy, Hernia Repair, Upper Endoscopy - Alcohol/Substance Use Hx Alcohol Use: No History of Substance Use: reports: None - Smoking History Smoking history: Never smoked Have you smoked in the past 12 months: No Aproximately how many cigarettes per day: 0 - Social History Usual Living Arrangement: With Spouse ADL: Independent 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 [employer] History of Recent Travel: No Home Medications - Allergies Allergies/Adverse Reactions: Allergies Allergy/AdvReac Type Severity Reaction Status Date / Time Iodinated Contrast- Oral and Allergy Verified 02/17/18 14:11 IV Dye [Iodinated Contrast Media - IV Dye] - Home Medications Home Medications: Ambulatory Orders Aspirin [ASA -] 81 mg PO DAILY 12/20/17 Atorvastatin Ca [Lipitor] 10 mg PO DAILY 12/20/17 Furosemide [Lasix -] 40 mg PO BID 12/20/17 Lisinopril 20 mg PO DAILY 12/20/17 Multivitamins [Multivit ([facility])] 1 tab PO DAILY 12/20/17 Nadolol 20 mg PO DAILY 12/20/17 Nateglinide [Starlix (Nf) -] 60 mg PO TID 12/20/17 Pantoprazole Sodium [Protonix -] 40 mg PO DAILY 12/20/17 Ranolazine [Ranexa -] 1,000 mg PO BID 12/20/17 Rifaximin [Xifaxan -] 550 mg PO BID 12/20/17 Spironolactone 50 mg PO DAILY 12/20/17 metFORMIN HCL [Metformin HCl] 500 mg PO BID 12/20/17 Insulin (Levemir) [Levemir Vial] 10 units SQ HS units 12/25/17 Lactulose (Oral Use) [Cephulac -] 20 gm PO TID [facility] 12/25/17 Family Disease History - Family Disease History Family Disease History: Diabetes: Brother (alcoholic cirrhosis), Sister, CA: Mother (breast Ca), Other: Father ( from alcohol related complications) Review of Systems - Review of Systems Constitutional: reports: No Symptoms Eyes: reports: No Symptoms HENT: reports: No Symptoms Neck: reports: No Symptoms Cardiovascular: reports: No Symptoms Respiratory: reports: No Symptoms Gastrointestinal: reports: Bloating Genitourinary: reports: No Symptoms Musculoskeletal: reports: Extremity Pain Integumentary: reports: No Symptoms Neurological: reports: No Symptoms Endocrine: reports: No Symptoms Hematology/Lymphatic: reports: No Symptoms Psychiatric: reports: No Symptoms Vital Signs: Vital Signs Temperature 98.5 F 02/19/18 06:00 Pulse Rate 60 02/19/18 06:00 Respiratory Rate 20 02/19/18 06:00 Blood Pressure 102/55 L 02/19/18 06:00 O2 Sat by Pulse Oximetry (%) 98 02/18/18 21:00 Constitutional: Yes: Well Nourished, No Distress, Calm Eyes: Yes: Conjunctiva Clear, EOM Intact HENT: Yes: Atraumatic, Normocephalic Neck: Yes: Supple, Trachea Midline Respiratory: Yes: Regular, CTA Bilaterally Gastrointestinal: Yes: Normal Bowel Sounds, Ascites Renal/: Yes: WNL Cardiovascular: Yes: Regular Rate and Rhythm JVD: No Heart Sounds: Yes: S1, S2 Edema: Yes Edema: LLE: 2+ Peripheral Pulses WNL: Yes Integumentary: No: Jaundice Neurological: Yes: Alert, Oriented ...Motor Strength: WNL Psychiatric: Yes: Alert, Oriented - Other Data Labs, Other Data: CBC, BMP 02/19/18 07:00 02/19/18 07:00 INR, PTT INR 1.25 (0.83-1.09) H 02/17/18 16:30 Assessment/Plan EKG: sinus fermín, LAD, LVH Echo 10/2016 LV mildly dilated, nl LV function, RV nl function and size, mildly dilated RA, tr TR mibi 05/2015 no ischemia, EF 53% 58M h/o CAD s/p stents 2006,HERNANDEZ, HCC with ascites, DM, foot ulcer p/w foot ulcer debridement, ascites ascites, LLE edema - ascites likely in setting of HCC, HERNANDEZ - on spironolactone and lasix at home, plan for paracentesis with IR - edema likely in setting of lower ext wound - no sob, JVD, lungs clear - check echocardiogram, nl EF on prior foot ulcer - wound care, ID consulted with plan for debridement CAD - on aspirin, statin, ranolazine - normal EF on echo 10/2016 - stable, asymptomatic DM - manage per primary team
[2018-02-19 13:46] VITALS: BMI 37.0
[2018-02-19 13:59] LABS: URINE APPEARANCE CLEAR; URINE BILIRUBIN NEGATIVE (<2.0 mg/dL); URINE COLOR AMBER; URINE GLUCOSE (UA) NEGATIVE (NEGATIVE); URINE KETONE NEGATIVE (NEGATIVE); URINE LEUK ESTERASE NEGATIVE (NEGATIVE); URINE NITRITE NEGATIVE (NEGATIVE); URINE PROTEIN NEGATIVE (NEGATIVE); URINE UROBILINOGEN 4.0 E.U/dl mg/dL (0.2-1.0)
[2018-02-19 14:01] LABS: EPI CELLS RARE /HPF (FEW); URINE HYALINE CAST 16 /lpf
[2018-02-19] MEDS ORDERED: oxyCODONE HCL 5 MG TABLET PO PRN (15:59)
[2018-02-19] MEDS ORDERED: morphine SULFATE 4 MG/ML VIAL IVPUSH ONE (16:00)
[2018-02-19] MEDS: ATORVASTATIN CA 10 MG TABLET (FP) PO SCH (22:50)
[2018-02-19] MEDS: INSULIN (LEVEMIR) 100 UNITS/ML UNITS SQ SCH (23:00)
[2018-02-19] MEDS ORDERED: INSULIN (LEVEMIR) 100 UNITS/ML UNITS SQ ONE (23:09)
[2018-02-20] MEDS: LACTULOSE 20 GM/30 ML UDC (FOR ORAL USE ONLY) PO SCH ×3 (06:10→21:36)
[2018-02-20] MEDS: INSULIN SLIDING SCALE (NOVOLOG) 1 VIAL SQ SCH ×4 (06:18→21:42)
[2018-02-20] MEDS: FUROSEMIDE 40 MG TABLET (FP) PO SCH ×2 (07:46→13:52)
--- NOTE | 2018-02-20 09:04 | PN ---
Progress Note, Physician Chief Complaint: AWAKE ALERT FEELS BETTER TODAY - Current Medication List Current Medications: Active Medications Aspirin (Asa -) 81 mg PO DAILY [facility] Last Admin: 02/19/18 10:23 Dose: 81 mg Atorvastatin Calcium (Lipitor -) 10 mg PO HS [facility] Last Admin: 02/19/18 22:50 Dose: 10 mg Collagenase (Santyl -) 1 applic TP DAILY [facility]; Protocol Last Admin: 02/19/18 10:24 Dose: 1 applic Furosemide (Lasix -) 40 mg PO BIDLASIX [facility] Last Admin: 02/20/18 07:46 Dose: Not Given Insulin Aspart (Novolog Vial Sliding Scale -) 1 vial SQ ACHS [facility]; Protocol Last Admin: 02/20/18 06:18 Dose: Not Given Insulin Detemir (Levemir Vial) 10 units SQ HS [facility] Last Admin: 02/19/18 23:00 Dose: 10 units Lactulose (Cephulac (Oral Use)) 20 gm PO TID [facility] Last Admin: 02/20/18 06:10 Dose: Not Given Lisinopril (Prinivil) 20 mg PO DAILY [facility] Last Admin: 02/19/18 10:23 Dose: 20 mg Multivitamins/Minerals/Vitamin C (Tab-A-Vit -) 1 tab PO DAILY [facility] Last Admin: 02/19/18 10:23 Dose: 1 tab Nadolol (Corgard -) 20 mg PO DAILY [facility] Last Admin: 02/19/18 10:23 Dose: 20 mg Oxycodone HCl (Roxicodone -) 10 mg PO Q4H PRN PRN Reason: PAIN LEVEL 6-10 Last Admin: 02/19/18 23:18 Dose: 10 mg Pantoprazole Sodium (Protonix -) 40 mg PO DAILY [facility] Last Admin: 02/19/18 10:23 Dose: 40 mg Ranolazine (Ranexa -) 1,000 mg PO BID [facility] Last Admin: 02/19/18 23:01 Dose: 1,000 mg Rifaximin (Xifaxan -) 550 mg PO BID [facility] Last Admin: 02/19/18 22:50 Dose: 550 mg Spironolactone (Aldactone -) 50 mg PO DAILY [facility] Last Admin: 02/19/18 10:23 Dose: 50 mg - Objective Vital Signs: Vital Signs Temperature 100.5 F H 02/20/18 06:47 Pulse Rate 76 02/20/18 06:47 Respiratory Rate 20 02/20/18 06:47 Blood Pressure 120/72 02/20/18 06:47 O2 Sat by Pulse Oximetry (%) 98 02/19/18 21:00 Constitutional: Yes: Mild Distress Eyes: Yes: WNL HENT: Yes: WNL Neck: Yes: WNL Cardiovascular: Yes: WNL Respiratory: Yes: WNL Gastrointestinal: Yes: WNL Genitourinary: Yes: Incontinence Musculoskeletal: Yes: Muscle Weakness Extremities: Yes: Amputation, Deformity Integumentary: Yes: Pressure Ulcer, Venous Stasis Changes Wound/Incision: Yes: Dressing Dry and Intact Neurological: Yes: Numbness, Paresthesia, Pre-Existing Deficit, Weakness ...Motor Strength: LLE, RLE Psychiatric: Yes: Other Labs: CBC, BMP 02/19/18 07:00 02/19/18 07:00 INR, PTT INR 1.25 (0.83-1.09) H 02/17/18 16:30 Problem List - Problems (1) Anemia requiring transfusions Code(s): D64.9 - ANEMIA, UNSPECIFIED (2) Ascites Code(s): R18.8 - OTHER ASCITES Qualifiers: Ascites type: malignant Qualified Code(s): R18.0 - Malignant ascites (3) Diabetic foot ulcer associated with type 2 diabetes mellitus Code(s): E11.621 - TYPE 2 DIABETES MELLITUS WITH FOOT ULCER; L97.509 - NON- PRESSURE CHRONIC ULCER OTH PRT UNSP FOOT W UNSP SEVERITY Qualifiers: Laterality: left (4) Dyspnea Code(s): R06.00 - DYSPNEA, UNSPECIFIED Qualifiers: Dyspnea type: dyspnea on exertion Qualified Code(s): R06.09 - Other forms of dyspnea (5) Leukocytosis Code(s): D72.829 - ELEVATED WHITE BLOOD CELL COUNT, UNSPECIFIED Qualifiers: Leukocytosis type: unspecified Qualified Code(s): D72.829 - Elevated white blood cell count, unspecified (6) PVD (peripheral vascular disease) Code(s): I73.9 - PERIPHERAL VASCULAR DISEASE, UNSPECIFIED (7) Type 2 diabetes mellitus Code(s): E11.9 - TYPE 2 DIABETES MELLITUS WITHOUT COMPLICATIONS Qualifiers: Diabetes mellitus retirement insulin use: without retirement use Diabetes mellitus complication status: with circulatory complication Diabetes mellitus complication detail: with peripheral angiopathy with gangrene Qualified Code(s ): E11.52 - Type 2 diabetes mellitus with diabetic peripheral angiopathy with gangrene (8) Ulcer of left foot Code(s): L97.529 - NON-PRESSURE CHRONIC ULCER OTH PRT LEFT FOOT W UNSP SEVERITY Qualifiers: Non-pressure ulcer stage: with necrosis of bone Qualified Code(s): L97.524 - Non-pressure chronic ulcer of other part of left foot with necrosis of bone (9) SHANEKA (acute kidney injury) Code(s): N17.9 - ACUTE KIDNEY FAILURE, UNSPECIFIED (10) Abdominal distension Code(s): R14.0 - ABDOMINAL DISTENSION (GASEOUS) (11) Ascites due to alcoholic cirrhosis Code(s): K70.31 - ALCOHOLIC CIRRHOSIS OF LIVER WITH ASCITES (12) Atherosclerosis Code(s): I70.90 - UNSPECIFIED ATHEROSCLEROSIS (13) Atherosclerotic PVD with ulceration Code(s): I70.209 - UNSP ATHSCL [place] ARTERIES OF EXTREMITIES, UNSP EXTREMITY; L98.499 - NON-PRESSURE CHRONIC ULCER OF SKIN OF SITES W UNSP SEVERITY (14) Hepatic encephalopathy Code(s): K72.90 - HEPATIC FAILURE, UNSPECIFIED WITHOUT COMA Assessment/Plan TRANSFUSE PRBC PODIATRY/VASC SX EVAL PAIN CONTROL IV ABX WOUND CARE SSI/DIABETES EDUCATION D/W WITH PATIENT DIETARY CONSULT WITH NUTRITION EVAL CHECK LABS HEME CONSULT FOR ANEMIA
[2018-02-20] MEDS: SPIRONOLACTONE 25 MG TABLET (FP) PO SCH (10:26)
[2018-02-20] MEDS: PANTOPRAZOLE 40 MG TABLET (FP) PO SCH (10:26)
[2018-02-20] MEDS: NADOLOL 20 MG TABLET (FP) PO SCH (10:26)
[2018-02-20] MEDS: LISINOPRIL 20 MG TABLET (FP) PO SCH (10:26)
[2018-02-20] MEDS: RANOLAZINE E.R. 1,000 MG TABLET (FP) PO SCH ×2 (10:26→21:42)
[2018-02-20] MEDS: ASPIRIN 81 MG CHEWABLE TABLETS PO SCH (10:26)
[2018-02-20] MEDS: RIFAXIMIN 550 MG TABLET (UD) PO SCH ×2 (10:27→21:41)
[2018-02-20] MEDS: MULTIVITAMINS (DAILY MVI) TABLET (FP) PO SCH (10:27)
--- NOTE | 2018-02-20 12:00 | CONSULT ---
Consultation: REQUESTING PROVIDER:Fidencio CONSULT REQUEST: We have been asked to medically evaluate this patient for Anemia. HISTORY OF PRESENT ILLNESS: 58 year old male with multiple medical problems including HERNANDEZ, HCC with ascites, DM with foot ulcer who presented to the ED from wound clinic for admission for debridement of foot ulcer for medical optimization. Pt reports increasing abdominal girth/distention with associated increased "liver" pain. He reports taking aleve daily for the pain. He denies SOB, CP, palpitations. Recent Travel: pt denies PAST MEDICAL HISTORY: HTN, HLD, CAD, anemia, HCC s/p heat ablations at [facility], HERNANDEZ, ascites, esophageal varices s/p banding, DM, PVD, diabetic foot ulcers PAST SURGICAL HISTORY: cardiac stents 2006 L anterior tibial artherectomy and angioplasty L TP trunk atherectomy with DCB angioplasty L 4th, 5th toe amputations, L 5th metatarsal resection R 2nd, 3rd toe amputations cholcystectomy Social History: Smoking: pt denies Alcohol: pt denies Drugs: pt denies Family History: mother s/p BrCA father , complications of ETOH brother s/p alcholic cirrhosis brother complications of infection brother alive, s/p CVA REVIEW OF SYSTEMS: CONSTITUTIONAL: Absent: fever, chills, diaphoresis, generalized weakness, malaise, loss of appetite, weight change HEENT: Absent: rhinorrhea, nasal congestion, throat pain, throat swelling, difficulty swallowing, mouth swelling, ear pain, eye pain, visual changes CARDIOVASCULAR: Absent: chest pain, syncope, palpitations, irregular heart rate, lightheadedness , peripheral edema RESPIRATORY: Absent: cough, shortness of breath, dyspnea with exertion, orthopnea, wheezing, stridor, hemoptysis GASTROINTESTINAL:abdominal pain, abdominal distension Absent: nausea, vomiting, diarrhea, constipation, melena, hematochezia GENITOURINARY: Absent: dysuria, frequency, urgency, hesitancy, hematuria, flank pain, genital pain MUSCULOSKELETAL: Absent: myalgia, arthralgia, joint swelling, back pain, neck pain SKIN: foot ulcer Absent: rash, itching, pallor HEMATOLOGIC/IMMUNOLOGIC: Absent: easy bleeding, easy bruising, lymphadenopathy, frequent infections ENDOCRINE: Absent: unexplained weight gain, unexplained weight loss, heat intolerance, cold intolerance NEUROLOGIC: Absent: headache, focal weakness or paresthesias, dizziness, unsteady gait, seizure, mental status changes, bladder or bowel incontinence PSYCHIATRIC: Absent: anxiety, depression, suicidal or homicidal ideation, hallucinations.. PHYSICAL EXAMINATION Vital Signs - 24 hr 02/19/18 02/19/18 02/19/18 15:34 16:30 21:00 Temperature 98.7 F 98.2 F Pulse Rate 64 64 Respiratory 22 H 22 H Rate Blood Pressure 109/59 L 104/56 L O2 Sat by Pulse 98 Oximetry (%) 02/19/18 02/20/18 02/20/18 22:00 06:47 09:00 Temperature 99 F 100.5 F H 100.6 F H Pulse Rate 64 76 74 Respiratory 20 20 18 Rate Blood Pressure 113/66 120/72 104/60 O2 Sat by Pulse Oximetry (%) HEENT: JONE, EOM Intact Oropharynx: No thrush, No mucositis Neck: Supple Nodes: Without adenopathy Lungs: diminished breath sounds bilaterally Abd: ascites, fluid wave, umbilical hernia, surgical scar above umbilicus, no definite organomegaly appreciated Ext amputation left 4th and 5th digits and bone on left and 2nd and 3rd digits on right Skin: No rashes, Integument intact Laboratory Results - last 24 hr 02/17/18 02/19/18 02/19/18 16:30 11:46 13:00 POC Glucometer 169 Urine Color K[place] Urine Appearance Clear Urine pH 5.0 Ur Specific [place] 1.013 Urine Protein Negative Urine Glucose (UA) Negative Urine Ketones Negative Urine Blood 2+ H Urine Nitrite Negative Urine Bilirubin Negative Urine Urobilinogen 4.0 e.u/dl Ur Leukocyte Esterase Negative Urine WBC (Auto) 5 Urine RBC (Auto) 40 Ur Epithelial Cells Rare Hyaline Casts 16 Blood Type Antibody Screen Crossmatch See Detail 02/19/18 02/19/18 02/20/18 17:11 22:53 06:18 POC Glucometer 186 155 142 Urine Color Urine Appearance Urine pH Ur Specific [place] Urine Protein Urine Glucose (UA) Urine Ketones Urine Blood Urine Nitrite Urine Bilirubin Urine Urobilinogen Ur Leukocyte Esterase Urine WBC (Auto) Urine RBC (Auto) Ur Epithelial Cells Hyaline Casts Blood Type Antibody Screen Crossmatch 02/20/18 09:15 POC Glucometer Urine Color Urine Appearance Urine pH Ur Specific [place] Urine Protein Urine Glucose (UA) Urine Ketones Urine Blood Urine Nitrite Urine Bilirubin Urine Urobilinogen Ur Leukocyte Esterase Urine WBC (Auto) Urine RBC (Auto) Ur Epithelial Cells Hyaline Casts Blood Type A POSITIVE Antibody Screen Negative Crossmatch See Detail Active Medications Generic Name Dose Route Start Last Admin Trade Name Tello PRN Reason Stop Dose Admin Aspirin 81 mg 02/18/18 10:00 02/20/18 10:26 Asa - PO Not Given DAILY [facility] Atorvastatin Calcium 10 mg 02/17/18 22:00 02/19/18 22:50 Lipitor - PO 10 mg HS [facility] Administration Collagenase 1 applic 02/18/18 10:00 02/19/18 10:24 Santyl - TP 1 applic DAILY [facility] Administration Protocol Furosemide 40 mg 02/18/18 06:00 02/20/18 07:46 Lasix - PO Not Given BIDLASIX [facility] Insulin Aspart 1 vial 02/17/18 22:00 02/20/18 06:18 Novolog Vial Sliding Scale - SQ Not Given ACHS [facility] Protocol Insulin Detemir 10 units 02/17/18 22:00 02/19/18 23:00 Levemir Vial SQ 10 units HS [facility] Administration Lactulose 20 gm 02/17/18 22:00 02/20/18 06:10 Cephulac (Oral Use) PO Not Given TID [facility] Lisinopril 20 mg 02/18/18 10:00 02/20/18 10:26 Prinivil PO Not Given DAILY [facility] Multivitamins/Minerals/Vitamin C 1 tab 02/18/18 10:00 02/20/18 10:27 Tab-A-Vit - PO Not Given DAILY [facility] Nadolol 20 mg 02/18/18 10:00 02/20/18 10:26 Corgard - PO Not Given DAILY [facility] Oxycodone HCl 10 mg 02/19/18 15:59 02/19/18 23:18 Roxicodone - PO 10 mg Q4H PRN Administration PAIN LEVEL 6-10 Pantoprazole Sodium 40 mg 02/18/18 10:00 02/20/18 10:26 Protonix - PO Not Given DAILY [facility] Ranolazine 1,000 mg 02/17/18 22:00 02/20/18 10:26 Ranexa - PO Not Given BID [facility] Rifaximin 550 mg 02/17/18 22:00 02/20/18 10:27 Xifaxan - PO Not Given BID [facility] Spironolactone 50 mg 02/18/18 10:00 02/20/18 10:26 Aldactone - PO Not Given DAILY J CARLOS ASSESSMENT/PLAN: Dispo: We will continue to follow the patient. Thank you for this consultative opportunity. Problem List - Problems (1) Anemia requiring transfusions Assessment/Plan: Anemia is multifactorial given CKD and Anemia of chronic disease. * s/p 1 unit PRBC on 02/17 with appropriate response. * anemia labs sent * Repeat CBC in am * normal transfusion thresholds. (2) Diabetic foot ulcer associated with type 2 diabetes mellitus Assessment/Plan: Plan for OR on 02/22 for debridement and biopsy. (3) PVD (peripheral vascular disease) Assessment/Plan: Aspirin (Asa -) 81 mg PO DAILY Atorvastatin Calcium (Lipitor -) 10 mg PO HS (4) Type 2 diabetes mellitus Assessment/Plan: with circulatory complications * ADA diet * BGM ACHS * ISS ACHS (5) Ascites due to alcoholic cirrhosis Assessment/Plan: s/p 9L of fluid removed today (6) CKD (chronic kidney disease) (7) Hepatocellular carcinoma Assessment/Plan: Will need follow up with clinical pharmacologist. (8) 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 Visit type - Emergency Visit Emergency Visit: Yes ED Registration Date: 02/17/18 Care time: The patient presented to the Emergency Department on the above date and was hospitalized for further evaluation of their emergent condition. - New Patient This patient is new to me today: Yes Date on this admission: 02/22/18 - Critical Care Critical Care patient: No
[2018-02-20] MEDS: COLLAGENASE CLOSTRIDIUM HIST. 30 GRAMS TUBE TP SCH (12:37)
--- NOTE | 2018-02-20 13:34 | ECHO ---
Name: JAYSON STRAUSS Exam:Adult Echocardiogram Study Date: 02/20/2018 09:58 AM Age: 58 yrs Reason For Study: edema Height: 70 in Weight: 258 lb BSA: 2.3 m2 MMode/2D Measurements & Calculations IVSd: 0.73 cm Ao root diam: 2.8 cm LVIDd: 6.2 cm LA dimension: 5.8 cm LVIDs: 3.4 cm ACS: 1.9 cm LVPWd: 0.86 cm IVSs: 1.2 cm LVPWs: 1.3 cm EDV(Teich): 192.7 ml ESV(Teich): 46.4 ml LVOT diam: 2.3 cm Doppler Measurements & Calculations MV E max jorge luis: 96.7 cm/sec Ao V2 max: 198.8 cm/sec MV A max jorge luis: 96.3 cm/sec Ao max P.8 mmHg MV E/A: 1.0 Ao V2 mean: 128.7 cm/sec Ao mean P.9 mmHg Ao V2 VTI: 37.4 cm TERE(I,D): 3.0 cm2 TERE(V,D): 2.8 cm2 LV V1 max P.8 mmHg SV(LVOT): 113.3 ml LV V1 mean P.5 mmHg LV V1 max: 130.2 cm/sec LV V1 mean: 86.6 cm/sec LV V1 VTI: 26.3 cm TR max jorge luis: 255.6 cm/sec PA V2 max: 162.4 cm/sec TR max P.2 mmHg PA max P.6 mmHg PA V2 mean: 104.2 cm/sec PA mean P.9 mmHg PA V2 VTI: 31.5 cm Med Peak E' Jorge Luis: 5.3 cm/sec Med E/e': 18.4 Lat Peak E' Jorge Luis: 9.9 cm/sec Lat E/e': 9.8 Procedure A complete two-dimensional transthoracic echocardiogram was performed (2D, M-mode, Doppler and color flow Doppler). Left Ventricle The left ventricle is mildly dilated. Left ventricular systolic function is normal. Ejection Fraction = 60- 65%. Diastolic dysfunction, Grade II (pseudonormalization pattern). Elevated filling pressure. No reg ional wall motion abnormalities noted. Right Ventricle The right ventricle is normal size. The right ventricular systolic function is normal. Atria The left atrium is moderately dilated. Right atrial size is normal. Mitral Valve There is mild mitral annular calcification. There is no mitral regurgitation noted. Tricuspid Valve The tricuspid valve is normal in structure and function. Pulmonary artery systolic pressure is at [address] 36 mmHg if RA pressure is assumed 3 mmHg (IVC was not visulized therefore RA pressure could not be estim ated). Aortic Valve There is mild aortic sclerosis.;. No aortic regurgitation is present. Pulmonic Valve The pulmonic valve is not well visualized. Great Vessels The aortic root is normal size. Pericardium/Pleura There is no pericardial effusion. Interpretation Summary The left ventricle is mildly dilated. Left ventricular systolic function is normal. No regional wall motion abnormalities noted. Ejection Fraction = 60-65%. Diastolic dysfunction, Grade II (pseudonormalization pattern) with elevated filling pressure The right ventricular systolic function is normal. The left atrium is moderately dilated. Right atrial size is normal. There is mild mitral annular calcification. Pulmonary artery systolic pressure is at least 36 mmHg if RA pressure is assumed 3 mmHg (IVC was not visulized therefore RA pressure could not be estimated) There is mild aortic sclerosis.; There is no pericardial effusion. Previous study is not available for comparison Ritesh Casillas MD 02/20/2018 01:34 PM
--- NOTE | 2018-02-20 15:22 | PN ---
Progress Note (short form) - Note Progress Note: s: s/p paracentesis today, feels better. no chest pain, palps, dizzy, lightheadedness Current Medications Aspirin (Asa -) 81 mg PO DAILY [facility] Last Admin: 02/20/18 10:26 Dose: Not Given Atorvastatin Calcium (Lipitor -) 10 mg PO HS [facility] Last Admin: 02/19/18 22:50 Dose: 10 mg Collagenase (Santyl -) 1 applic TP DAILY [facility]; Protocol Last Admin: 02/20/18 12:37 Dose: Not Given Furosemide (Lasix -) 40 mg PO BIDLASIX [facility] Last Admin: 02/20/18 13:52 Dose: Not Given Insulin Aspart (Novolog Vial Sliding Scale -) 1 vial SQ [facility]; Protocol Last Admin: 02/20/18 12:35 Dose: Not Given Insulin Detemir (Levemir Vial) 10 units SQ [facility] Last Admin: 02/19/18 23:00 Dose: 10 units Lactulose (Cephulac (Oral Use)) 20 gm PO TID [facility] Last Admin: 02/20/18 13:50 Dose: Not Given Lisinopril (Prinivil) 20 mg PO DAILY [facility] Last Admin: 02/20/18 10:26 Dose: Not Given Multivitamins/Minerals/Vitamin C (Tab-A-Vit -) 1 tab PO DAILY [facility] Last Admin: 02/20/18 10:27 Dose: Not Given Nadolol (Corgard -) 20 mg PO DAILY [facility] Last Admin: 02/20/18 10:26 Dose: Not Given Oxycodone HCl (Roxicodone -) 10 mg PO Q4H PRN PRN Reason: PAIN LEVEL 6-10 Last Admin: 02/19/18 23:18 Dose: 10 mg Pantoprazole Sodium (Protonix -) 40 mg PO DAILY [facility] Last Admin: 02/20/18 10:26 Dose: Not Given Ranolazine (Ranexa -) 1,000 mg PO BID [facility] Last Admin: 02/20/18 10:26 Dose: Not Given Rifaximin (Xifaxan -) 550 mg PO BID [facility] Last Admin: 02/20/18 10:27 Dose: Not Given Spironolactone (Aldactone -) 50 mg PO DAILY [facility] Last Admin: 02/20/18 10:26 Dose: Not Given Vital Signs: Vital Signs Period Temp Pulse Resp BP Sys/Ferrell Pulse Ox Last 24 Hr 98.2 F-100.6 F 64-76 18-22 104-120/56-72 98 Constitutional: Yes: Well Nourished, No Distress, Calm Eyes: Yes: Conjunctiva Clear, EOM Intact HENT: Yes: Atraumatic, Normocephalic Neck: Yes: Supple, Trachea Midline Respiratory: Yes: Regular, CTA Bilaterally Gastrointestinal: Yes: Normal Bowel Sounds Renal/: Yes: WNL Cardiovascular: Yes: Regular Rate and Rhythm JVD: No Heart Sounds: Yes: S1, S2 Edema: Yes Edema: LLE: 2+ Peripheral Pulses WNL: Yes Integumentary: No: Jaundice Neurological: Yes: Alert, Oriented ...Motor Strength: WNL Psychiatric: Yes: Alert, Oriented Assessment/Plan EKG: sinus fermín, LAD, LVH Echo 10/2016 LV mildly dilated, nl LV function, RV nl function and size, mildly dilated RA, tr TR echo 02/2018 LV mildly dilated, nl LV function EF 60-65%, grade II diastolic dysfunction, increased filling pressures, RV nl, LA mod dilatd, RA nl mibi 05/2015 no ischemia, EF 53% 58M h/o CAD s/p stents 2007,HERNANDEZ, HCC with ascites, DM, foot ulcer p/w foot ulcer debridement, ascites ascites, LLE edema - ascites likely in setting of HCC, HERNANDEZ - on spironolactone and lasix at home, now s/p paracentesis - edema likely in setting of lower ext wound - no sob, JVD, lungs clear - echo normal EF, with diastolic dysfunction and elevated LA pressure - continue diuretics with spironolactone, lasix, cont nadolol - held today due to low BP after paracentesis foot ulcer - wound care, ID consulted with plan for debridement CAD - on aspirin, statin, ranolazine - normal EF on echo 02/2018, grade II diastolic dysfunction - stable, asymptomatic - continue spironolactone and lasix DM - manage per primary team
--- NOTE | 2018-02-20 17:12 | CONSULT ---
Consult Consult Specialty:: VAscular Surgery - History of Present Illness Chief Complaint: Left foot ulcer with ascites in abdomen. Pt sent from wound care clinic to. ER. 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: Peripheral Neuropathy Cardio/Vascular: Yes: CAD, HTN, Hyperlipdemia Gastrointestinal: Yes: Ascites, Esophageal Varices, Gastritis, GI Bleed, Hemorrhoids, Other Hepatobiliary: Yes: Cirrhosis (h/o esophageal varices s/p banding, related to HERNANDEZ), Cholelithiasis (s/p lap choly), Other (PORTAL VEIN PARTIAL THROMBOSIS, HCC treated with transhepatic heat ablations at [facility]) Renal/: Yes: Renal Inusuff Infectious Disease: Yes: MRSA, Other (osteomyelitis left foot ) Endocrine: Yes: Diabetes Mellitus - Past Surgical History Past Surgical History: Yes: Amputation (left toe #4, right toes #2,3), Cholecystectomy, Colonoscopy, Hernia Repair, Upper Endoscopy - Alcohol/Substance Use Hx Alcohol Use: No History of Substance Use: reports: None - Smoking History Smoking history: Never smoked Have you smoked in the past 12 months: No Aproximately how many cigarettes per day: 0 - Social History Usual Living Arrangement: With Spouse ADL: Independent 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 [employer] History of Recent Travel: No Home Medications - Allergies Allergies/Adverse Reactions: Allergies Allergy/AdvReac Type Severity Reaction Status Date / Time Iodinated Contrast- Oral and Allergy Verified 02/17/18 14:11 IV Dye [Iodinated Contrast Media - IV Dye] - Home Medications Home Medications: Ambulatory Orders Aspirin [ASA -] 81 mg PO DAILY 12/20/17 Atorvastatin Ca [Lipitor] 10 mg PO DAILY 12/20/17 Furosemide [Lasix -] 40 mg PO BID 12/20/17 Lisinopril 20 mg PO DAILY 12/20/17 Multivitamins [Multivit ([facility] Formulary)] 1 tab PO DAILY 12/20/17 Nadolol 20 mg PO DAILY 12/20/17 Nateglinide [Starlix (Nf) -] 60 mg PO TID 12/20/17 Pantoprazole Sodium [Protonix -] 40 mg PO DAILY 12/20/17 Ranolazine [Ranexa -] 1,000 mg PO BID 12/20/17 Rifaximin [Xifaxan -] 550 mg PO BID 12/20/17 Spironolactone 50 mg PO DAILY 12/20/17 metFORMIN HCL [Metformin HCl] 500 mg PO BID 12/20/17 Insulin (Levemir) [Levemir Vial] 10 units SQ HS units 12/25/17 Lactulose (Oral Use) [Cephulac -] 20 gm PO TID [facility] 12/25/17 Family Disease History - Family Disease History Family Disease History: Diabetes: Brother (alcoholic cirrhosis), Sister, CA: Mother (breast Ca), Other: Father ( from alcohol related complications) Review of Systems - Review of Systems Constitutional: reports: No Symptoms Eyes: reports: No Symptoms HENT: reports: No Symptoms Neck: reports: No Symptoms Cardiovascular: reports: No Symptoms Respiratory: reports: No Symptoms Gastrointestinal: reports: No Symptoms Musculoskeletal: reports: No Symptoms Integumentary: reports: No Symptoms Neurological: reports: No Symptoms Endocrine: reports: No Symptoms Hematology/Lymphatic: reports: No Symptoms Psychiatric: reports: No Symptoms Physical Exam Vital Signs: Vital Signs Temperature 98.4 F 02/20/18 15:29 Pulse Rate 64 02/20/18 15:29 Respiratory Rate 18 02/20/18 15:29 Blood Pressure 82/52 L 02/20/18 15:29 O2 Sat by Pulse Oximetry (%) 98 02/19/18 21:00 Constitutional: Yes: Well Nourished, No Distress, Calm Eyes: Yes: WNL, Conjunctiva Clear, EOM Intact HENT: Yes: WNL, Atraumatic, Normocephalic Neck: Yes: WNL, Supple, Trachea Midline Cardiovascular: Yes: WNL, Regular Rate and Rhythm Respiratory: Yes: WNL, Regular, CTA Bilaterally Gastrointestinal: Yes: WNL, Normal Bowel Sounds ...Rectal Exam: Yes: WNL Renal/: Yes: WNL Breast(s): Yes: WNL Musculoskeletal: Yes: WNL Extremities: Yes: Other (Left foot ulcer lateral foot.) Edema: No Peripheral Pulses WNL: No Integumentary: Yes: WNL Neurological: Yes: WNL, Alert, Oriented ...Motor Strength: WNL Psychiatric: Yes: WNL Labs: CBC, BMP 02/19/18 07:00 02/19/18 07:00 Problem List - Problems (1) Anemia requiring transfusions Assessment/Plan: Left foot ulcer 1. paracentesis performed today - 9l taken out. 2. Pt needs blood transfusions 3. Pt has a creatinine of 2.0 4. Pt needs angiogram to look at runoff into left foot. -- can do wed or thurs depending on when pt can be optimized. Neil vazquezel DO Code(s): D64.9 - ANEMIA, UNSPECIFIED (2) Ascites Code(s): R18.8 - OTHER ASCITES Qualifiers: Ascites type: malignant Qualified Code(s): R18.0 - Malignant ascites (3) Ulcer of left foot Code(s): L97.529 - NON-PRESSURE CHRONIC ULCER OTH PRT LEFT FOOT W UNSP SEVERITY Qualifiers: Non-pressure ulcer stage: with necrosis of bone Qualified Code(s): L97.524 - Non-pressure chronic ulcer of other part of left foot with necrosis of bone
[2018-02-20] MEDS ORDERED: SODIUM CHLORIDE 250 ML IV STA (19:08)
[2018-02-20] MEDS ORDERED: SODIUM CHLORIDE 500 ML IV STA (20:43)
[2018-02-20] MEDS ORDERED: RANOLAZINE E.R. 500 MG TABLET (FP) ONE (21:12)
[2018-02-20] MEDS: ATORVASTATIN CA 10 MG TABLET (FP) PO SCH (21:41)
[2018-02-20] MEDS: INSULIN (LEVEMIR) 100 UNITS/ML UNITS SQ SCH (21:43)
--- NOTE | 2018-02-20 23:29 | PN ---
Teaching Attending Note Name of Resident: Shahid Mcneill ATTENDING PHYSICIAN STATEMENT I saw and evaluated the patient. I reviewed the resident's note and discussed the case with the resident. I agree with the resident's findings and plan as documented. Patient with advanced liver disease with cirrhosis, portal hypertension, partial thrombosed portal vein , hepatocellular carcinima treated by heat ablation at [facility], coagulopathy, anemia , thrombocytopenia, DM, PVD, osteomyelitis, s/p amputation of left 4th and 5th, LE digits and right 2nd and 3rd LE digits. Patient presents with left foot ulcer, ascites, anemia OBJECTIVE: Last Vital Signs Temp Pulse Resp BP Pulse Ox 98.2 F 62 20 77/46 L 98 02/20/18 17:16 02/20/18 17:16 02/20/18 17:16 02/20/18 17:16 02/19/18 21:00 HEENT: JONE, EOM Intact Oropharynx: No thrush, No mucositis Neck: Supple Nodes: Without adenopathy Lungs: diminished breath sounds bilaterally Abd: ascites, fluid wave, umbilical hernia, surgical scar above umbilicus, no definite organomegaly appreciated Ext amputation left 4th and 5th digits and bone on left and 2nd and 3rd digits on right Skin: No rashes, Integument intact ASSESSMENT AND PLAN: Agree that cytopenias, coagulopathy are secondary to liver disease with portal hypertension , hypersplenism s/p paracentesis will transfuse PRBCs as necessary or hgb <7 screening tests for anemia ordered will need f/[facility] liver team regarding HCC
[2018-02-21] MEDS: LACTULOSE 20 GM/30 ML UDC (FOR ORAL USE ONLY) PO SCH ×3 (06:49→21:54)
[2018-02-21] MEDS: FUROSEMIDE 40 MG TABLET (FP) PO SCH ×2 (06:54→13:54)
[2018-02-21] MEDS: INSULIN SLIDING SCALE (NOVOLOG) 1 VIAL SQ SCH ×4 (06:55→21:55)
[2018-02-21 08:22] LABS: HEMOGLOBIN 8.6 GM/dL (11.7-16.9); MCH 29.6 pg (25.7-33.7); MCHC 33.1 g/dl (32.0-35.9); MEAN CELL VOLUME 89.5 fl (80-96); MEAN PLT VOLUME 7.7 fl (7.5-11.1); PLATELET COUNT 116 K/MM3 (134-434); RBC 2.91 M/mm3 (4.00-5.60); WHITE BLOOD COUNT 16.8 K/mm3 (4.0-10.0)
--- NOTE | 2018-02-21 08:23 | PN ---
Progress Note, Physician Chief Complaint: C/O CHEST PAIN VS BP LOW 81/43MMHG 02 SAT 97% ROOM AIR BGM 140 - Current Medication List Current Medications: Active Medications Aspirin (Asa -) 81 mg PO DAILY [facility] Last Admin: 02/20/18 10:26 Dose: Not Given Atorvastatin Calcium (Lipitor -) 10 mg PO HS [facility] Last Admin: 02/20/18 21:41 Dose: 10 mg Collagenase (Santyl -) 1 applic TP DAILY [facility]; Protocol Last Admin: 02/20/18 12:37 Dose: Not Given Furosemide (Lasix -) 40 mg PO BIDLASIX [facility] Last Admin: 02/21/18 06:54 Dose: 40 mg Insulin Aspart (Novolog Vial Sliding Scale -) 1 vial SQ [facility]; Protocol Last Admin: 02/21/18 06:55 Dose: Not Given Insulin Detemir (Levemir Vial) 10 units SQ [facility] Last Admin: 02/20/18 21:43 Dose: 10 units Lactulose (Cephulac (Oral Use)) 20 gm PO TID [facility] Last Admin: 02/21/18 06:49 Dose: Not Given Lisinopril (Prinivil) 20 mg PO DAILY [facility] Last Admin: 02/20/18 10:26 Dose: Not Given Multivitamins/Minerals/Vitamin C (Tab-A-Vit -) 1 tab PO DAILY [facility] Last Admin: 02/20/18 10:27 Dose: Not Given Nadolol (Corgard -) 20 mg PO DAILY [facility] Last Admin: 02/20/18 10:26 Dose: Not Given Oxycodone HCl (Roxicodone -) 10 mg PO Q4H PRN PRN Reason: PAIN LEVEL 6-10 Last Admin: 02/19/18 23:18 Dose: 10 mg Pantoprazole Sodium (Protonix -) 40 mg PO DAILY [facility] Last Admin: 02/20/18 10:26 Dose: Not Given Ranolazine (Ranexa -) 1,000 mg PO BID [facility] Last Admin: 02/20/18 21:42 Dose: 1,000 mg Rifaximin (Xifaxan -) 550 mg PO BID [facility] Last Admin: 02/20/18 21:41 Dose: 550 mg Spironolactone (Aldactone -) 50 mg PO DAILY [facility] Last Admin: 02/20/18 10:26 Dose: Not Given - Objective Vital Signs: Vital Signs Temperature 98.1 F 02/21/18 05:23 Pulse Rate 62 02/21/18 05:23 Respiratory Rate 20 02/21/18 05:23 Blood Pressure 90/53 L 02/21/18 05:23 O2 Sat by Pulse Oximetry (%) 98 02/19/18 21:00 Constitutional: Yes: Mild Distress Eyes: Yes: WNL HENT: Yes: WNL Neck: Yes: WNL Cardiovascular: Yes: WNL Respiratory: Yes: WNL Gastrointestinal: Yes: Ascites, Distention Genitourinary: Yes: Incontinence Musculoskeletal: Yes: Muscle Weakness Extremities: Yes: WNL Edema: No Integumentary: Yes: Pressure Ulcer, Other Wound/Incision: Yes: Dressing Dry and Intact Neurological: Yes: Pre-Existing Deficit, Unsteady Gait, Weakness ...Motor Strength: LLE, RLE Psychiatric: Yes: Other Labs: INR, PTT INR 1.25 (0.83-1.09) H 02/17/18 16:30 Problem List - Problems (1) Anemia requiring transfusions Code(s): D64.9 - ANEMIA, UNSPECIFIED (2) Ascites Code(s): R18.8 - OTHER ASCITES Qualifiers: Ascites type: malignant Qualified Code(s): R18.0 - Malignant ascites (3) Diabetic foot ulcer associated with type 2 diabetes mellitus Code(s): E11.621 - TYPE 2 DIABETES MELLITUS WITH FOOT ULCER; L97.509 - NON- PRESSURE CHRONIC ULCER OTH PRT UNSP FOOT W UNSP SEVERITY Qualifiers: Laterality: left (4) Dyspnea Code(s): R06.00 - DYSPNEA, UNSPECIFIED Qualifiers: Dyspnea type: dyspnea on exertion Qualified Code(s): R06.09 - Other forms of dyspnea (5) Leukocytosis Code(s): D72.829 - ELEVATED WHITE BLOOD CELL COUNT, UNSPECIFIED Qualifiers: Leukocytosis type: unspecified Qualified Code(s): D72.829 - Elevated white blood cell count, unspecified (6) PVD (peripheral vascular disease) Code(s): I73.9 - PERIPHERAL VASCULAR DISEASE, UNSPECIFIED (7) Type 2 diabetes mellitus Code(s): E11.9 - TYPE 2 DIABETES MELLITUS WITHOUT COMPLICATIONS Qualifiers: Diabetes mellitus alf insulin use: without terminal operator use Diabetes mellitus complication status: with circulatory complication Diabetes mellitus complication detail: with peripheral angiopathy with gangrene Qualified Code(s ): E11.52 - Type 2 diabetes mellitus with diabetic peripheral angiopathy with gangrene (8) Ulcer of left foot Code(s): L97.529 - NON-PRESSURE CHRONIC ULCER OTH PRT LEFT FOOT W UNSP SEVERITY Qualifiers: Non-pressure ulcer stage: with necrosis of bone Qualified Code(s): L97.524 - Non-pressure chronic ulcer of other part of left foot with necrosis of bone (9) SHANEKA (acute kidney injury) Code(s): N17.9 - ACUTE KIDNEY FAILURE, UNSPECIFIED (10) Abdominal distension Code(s): R14.0 - ABDOMINAL DISTENSION (GASEOUS) (11) Ascites due to alcoholic cirrhosis Code(s): K70.31 - ALCOHOLIC CIRRHOSIS OF LIVER WITH ASCITES (12) Atherosclerosis Code(s): I70.90 - UNSPECIFIED ATHEROSCLEROSIS (13) Atherosclerotic PVD with ulceration Code(s): I70.209 - UNSP ATHSCL [place] ARTERIES OF EXTREMITIES, UNSP EXTREMITY; L98.499 - NON-PRESSURE CHRONIC ULCER OF SKIN OF SITES W UNSP SEVERITY (14) Hepatic encephalopathy Code(s): K72.90 - HEPATIC FAILURE, UNSPECIFIED WITHOUT COMA Assessment/Plan CXR/CARDIAC ENZYMES/EKK NOW IVF STOP OXYCODONE LABS PENDING NARCOTIC EFFECT? VS ATYPICAL CHEST PAIN? STOOL SOFTENERS BGM CHECKS IV ABX
[2018-02-21] MEDS ORDERED: SODIUM CHLORIDE 250 ML IV STA (08:50)
[2018-02-21 09:07] LABS: ANION GAP 7 MMOL/L (8-16); BLOOD UREA NITROGEN 57 mg/dL (7-18); CALCIUM 7.7 mg/dL (8.5-10.1); CHLORIDE 105 mmol/L (98-107); CO2 22 mmol/L (21-32); CREATININE 2.3 mg/dL (0.55-1.3); GLUCOSE,RANDOM 132 mg/dL (74-106); SODIUM 134 mmol/L (136-145)
--- NOTE | 2018-02-21 09:51 | PN ---
Progress Note (short form) - Note Progress Note: surgery Patient being followed for Left foot wound. Patient needs angiogram to look at runoff into left foot, However patient c/o of chest pain this morning, currently being worked up. Will plan for angio once patient cleared and medically optimized. Discussed with Dr Gasca, will follow.
[2018-02-21] MEDS ORDERED: SODIUM CHLORIDE 1,000 ML IV SCH (10:00)
[2018-02-21] MEDS: SPIRONOLACTONE 25 MG TABLET (FP) PO SCH (10:32)
[2018-02-21] MEDS: LISINOPRIL 20 MG TABLET (FP) PO SCH (10:32)
[2018-02-21] MEDS: NADOLOL 20 MG TABLET (FP) PO SCH (10:32)
[2018-02-21] MEDS ORDERED: PT OWN MED DRAWER 7, Y5N ONE ×2 (10:36→17:41)
[2018-02-21] MEDS ORDERED: RANOLAZINE E.R. 500 MG TABLET (FP) ONE ×3 (10:36→21:41)
[2018-02-21] MEDS: ASPIRIN 81 MG CHEWABLE TABLETS PO SCH (10:43)
[2018-02-21] MEDS: COLLAGENASE CLOSTRIDIUM HIST. 30 GRAMS TUBE TP SCH (10:44)
[2018-02-21] MEDS: PANTOPRAZOLE 40 MG TABLET (FP) PO SCH (10:44)
[2018-02-21] MEDS: RANOLAZINE E.R. 1,000 MG TABLET (FP) PO SCH ×2 (10:46→21:56)
[2018-02-21] MEDS: POLYETHYLENE GLYCOL 3350 119 GM BTL PO SCH (10:46)
[2018-02-21] MEDS: RIFAXIMIN 550 MG TABLET (UD) PO SCH ×2 (10:47→21:56)
[2018-02-21] MEDS: MULTIVITAMINS (DAILY MVI) TABLET (FP) PO SCH (10:47)
--- NOTE | 2018-02-21 11:27 | PN ---
Progress Note (short form) - Note Progress Note: s: chest pain this AM per RN, per patient had pain in upper abdomen. yesterday felt okay, no symptoms. no nausea, diaphoresis, dyspnea. Current Medications Aspirin (Asa -) 81 mg PO DAILY [facility] Last Admin: 02/20/18 10:26 Dose: Not Given Atorvastatin Calcium (Lipitor -) 10 mg PO HS [facility] Last Admin: 02/19/18 22:50 Dose: 10 mg Collagenase (Santyl -) 1 applic TP DAILY [facility]; Protocol Last Admin: 02/20/18 12:37 Dose: Not Given Furosemide (Lasix -) 40 mg PO BIDLASIX [facility] Last Admin: 02/20/18 13:52 Dose: Not Given Insulin Aspart (Novolog Vial Sliding Scale -) 1 vial SQ [facility]; Protocol Last Admin: 02/20/18 12:35 Dose: Not Given Insulin Detemir (Levemir Vial) 10 units SQ [facility] Last Admin: 02/19/18 23:00 Dose: 10 units Lactulose (Cephulac (Oral Use)) 20 gm PO TID [facility] Last Admin: 02/20/18 13:50 Dose: Not Given Lisinopril (Prinivil) 20 mg PO DAILY [facility] Last Admin: 02/20/18 10:26 Dose: Not Given Multivitamins/Minerals/Vitamin C (Tab-A-Vit -) 1 tab PO DAILY [facility] Last Admin: 02/20/18 10:27 Dose: Not Given Nadolol (Corgard -) 20 mg PO DAILY [facility] Last Admin: 02/20/18 10:26 Dose: Not Given Oxycodone HCl (Roxicodone -) 10 mg PO Q4H PRN PRN Reason: PAIN LEVEL 6-10 Last Admin: 02/19/18 23:18 Dose: 10 mg Pantoprazole Sodium (Protonix -) 40 mg PO DAILY [facility] Last Admin: 02/20/18 10:26 Dose: Not Given Ranolazine (Ranexa -) 1,000 mg PO BID [facility] Last Admin: 02/20/18 10:26 Dose: Not Given Rifaximin (Xifaxan -) 550 mg PO BID [facility] Last Admin: 02/20/18 10:27 Dose: Not Given Spironolactone (Aldactone -) 50 mg PO DAILY [facility] Last Admin: 02/20/18 10:26 Dose: Not Given Vital Signs: Vital Signs Period Temp Pulse Resp BP Sys/Ferrell Pulse Ox Last 24 Hr 98.2 F-100.6 F 64-76 18-22 104-120/56-72 98 Constitutional: Yes: Well Nourished, No Distress, Calm Eyes: Yes: Conjunctiva Clear, EOM Intact HENT: Yes: Atraumatic, Normocephalic Neck: Yes: Supple, Trachea Midline Respiratory: Yes: Regular, CTA Bilaterally Gastrointestinal: Yes: Normal Bowel Sounds Renal/: Yes: WNL Cardiovascular: Yes: Regular Rate and Rhythm JVD: No Heart Sounds: Yes: S1, S2 Edema: Yes Edema: LLE: 2+ Peripheral Pulses WNL: Yes Integumentary: No: Jaundice Neurological: Yes: Alert, Oriented ...Motor Strength: WNL Psychiatric: Yes: Alert, Oriented Assessment/Plan EKG: sinus fermín, LAD, LVH Echo 10/2016 LV mildly dilated, nl LV function, RV nl function and size, mildly dilated RA, tr TR echo 02/2018 LV mildly dilated, nl LV function EF 60-65%, grade II diastolic dysfunction, increased filling pressures, RV nl, LA mod dilatd, RA nl mibi 05/2015 no ischemia, EF 53% 58M h/o CAD s/p stents 2006,HERNANDEZ, HCC with ascites, DM, foot ulcer p/w foot ulcer debridement, ascites, now with NSTEMI NSTEMI - trop 15.7, EKG with nonspecific changes, chest pain episode this morning - concern for bleeding, receieved 2 units PRBC yesterday, has been hypotensive. discussed with Dr. Nicolas, will start heparin gtt and plavix pending stool guaiac and repeat CBC - increase atorvastatin to 80 mg daily, continue aspirin, ranolazine - normal EF on echo - currently asymptomatic - discussed case with Dr. Jones, [place] [facility] anemia, SHANEKA, cirrhosis in patient asymptomatic, nl EF would defer cardiac catheterization at this point, medical management and monitor closely - trend troponins - transfer to tele hypotension - likely related to fluid shifts from paracentesis yesterday, s/p 9L removed - IV fluid, holding diuretics ascites, LLE edema - ascites likely in setting of HCC, HERNANDEZ - on spironolactone and lasix at home, now s/p paracentesis - edema likely in setting of lower ext wound - no sob, JVD, lungs clear - echo normal EF, with diastolic dysfunction and elevated LA pressure - holding diuretics in setting of hypotension foot ulcer - wound care, ID consulted with plan for debridement CAD - on aspirin, statin, ranolazine - manage NSTEMI as above - normal EF on echo 02/2018, grade II diastolic dysfunction DM - manage per primary team
[2018-02-21] MEDS ORDERED: FLU VACCINE QUAD 60 MCG/0.5 ML (MDV 18-19) IM ONE (11:40)
--- NOTE | 2018-02-21 11:45 | EKG ---
Test Reason : Blood Pressure : / mmHG Vent. Rate : 056 BPM Atrial Rate : 056 BPM P-R Int : 186 ms QRS Dur : 128 ms QT Int : 496 ms P-R-T Axes : 047 -31 027 degrees QTc Int : 478 ms SINUS BRADYCARDIA LEFT AXIS DEVIATION NON-SPECIFIC INTRA-VENTRICULAR CONDUCTION BLOCK ABNORMAL ECG Confirmed by Aamir Potter MD ([id number]) on 02/21/2018 11:45:32 AM Referred By: Rimma ROSALES Confirmed By:Aamir Potter MD
[2018-02-21] MEDS ORDERED: SODIUM CHLORIDE 0.9% 500 ML INFUS.BAG IV ONE (13:18)
[2018-02-21] MEDS ORDERED: OCTREOTIDE ACETATE 1,200 MCG in DEXTROSE 5%-WATER - 488 ML IVPB SCH ×2 (15:30→19:45)
--- NOTE | 2018-02-21 16:04 | CONSULT ---
Consultation: CONSULT REQUEST: We have been asked to medically evaluate this patient for transfer to the ICU. HISTORY OF PRESENT ILLNESS: Jesús Schaeffer is a 58yo man with a PMH of HTN, HLD, CAD, chronic anemia, HERNANDEZ , HCC, ascites, esophageal varicies, IDDM, PVD, diabetic foot ulcers who was admitted on 02/17 for debridement of a diabetic foot ulcer and was noted to have symptomatic ascites with increasing abdominal girth and orthopnea. He received 1u RBCs on arrival due to hbg 7.0 and dyspnea. Mr Schaeffer underwent IR paracentesis yesterday with 9L of fluid removed; however he did not receive any albumin following the paracentesis. He has additionally been refusing his lactulose per chart review. This morning he was complaining of abdominal/epigastric/chest pain. A troponin and EKG were ordered, and he was found to have a troponin elevation to 15.7 without EKG changes. Cardiology was consulted for an NSTEMI. Due to a guaiac positive stool today, it was decided not to start heparin. He became hypotensive to the 60's/30's and ICU was contacted for evaluation. Following 2x 250cc bolus his BP improved to the 90's. However, he was transferred to the ICU for monitoring. REVIEW OF SYSTEMS: General: No fevers, no chills, no appetite change, no malaise HEENT: No changes in vision, no changes in hearing, no congestion, no sore throat CV: See HPI Pulm: +SOB GI: No nausea or vomiting, no change in bowel habits, no melena. +abdominal pain , +Constipation, +ascites, see HPI : No frequency, no urgency, no dysuria Musc: No back pain, no joint swelling, no recent injury Skin: No rash, no lesions, no erythema. +Diabetic foot ulcers Endo: +IDDM Heme: No unusual bruising or bleeding, no swollen glands. +Chronic anemia Neuro: No syncope, +stocking/glove paresthesias, no focal weakness Vasc: +Claudication. +PVD Psych: No recent change in mood, no SI or HI PHYSICAL EXAMINATION Vital Signs - 24 hr 02/20/18 02/20/18 02/21/18 17:16 23:00 00:30 Temperature 98.2 F 97.8 F 98.9 F Pulse Rate 62 68 60 Respiratory 20 20 20 Rate Blood Pressure 77/46 L 70/42 L 73/46 L O2 Sat by Pulse Oximetry (%) 02/21/18 02/21/18 02/21/18 05:23 09:00 10:31 Temperature 98.1 F 98.8 F Pulse Rate 62 54 L 63 Respiratory 20 20 20 Rate Blood Pressure 90/53 L 81/43 L 84/50 L O2 Sat by Pulse 97 Oximetry (%) 02/21/18 02/21/18 02/21/18 12:08 12:50 13:09 Temperature 99.8 F H Pulse Rate 57 L 52 L 57 L Respiratory 20 20 20 Rate Blood Pressure 68/43 L 74/44 L 75/44 L O2 Sat by Pulse Oximetry (%) 02/21/18 15:13 Temperature Pulse Rate 56 L Respiratory 20 Rate Blood Pressure 94/42 L O2 Sat by Pulse Oximetry (%) General: Uncomfortable HEENT: PERRL, EOMI, voice normal Cards: RRR, no murmur appreciated Pulm: Comfortable on room air, clear to auscultation bilaterally Abd: Soft, mildly distended. Diffuse mild TTP Ext: BLE 1+ pitting edema. L foot with clean dressing in place Vasc: Extremities WWP. Skin: BLE with skin discoloration consistent with vascular disease Neuro: Alert. Oriented to self, place, situation. Stated year as 1959 and president as [facility] Psych: Mood appropriate to situation Laboratory Results - last 24 hr 02/17/18 02/20/18 02/20/18 16:30 09:15 16:55 WBC RBC Hgb Hct MCV MCH MCHC RDW Plt Count MPV Sodium Potassium Chloride Carbon Dioxide Anion Gap BUN Creatinine Creat Clearance w eGFR POC Glucometer 190 Random Glucose Calcium Ferritin Creatine Kinase Creatine Kinase Index CK-MB (CK-2) Troponin I Vitamin B12 TSH Free T4 Stool Occult Blood Blood Type A POSITIVE A POSITIVE Antibody Screen Negative Negative Crossmatch See Detail See Detail 02/20/18 02/21/18 02/21/18 21:38 06:52 07:10 WBC 16.8 H RBC 2.91 L Hgb 8.6 L Hct 26.0 L D MCV 89.5 MCH 29.6 MCHC 33.1 RDW 20.0 H Plt Count 116 L MPV 7.7 Sodium Potassium Chloride Carbon Dioxide Anion Gap BUN Creatinine Creat Clearance w eGFR POC Glucometer 166 145 Random Glucose Calcium Ferritin Creatine Kinase Creatine Kinase Index CK-MB (CK-2) Troponin I Vitamin B12 TSH Free T4 Stool Occult Blood Blood Type Antibody Screen Crossmatch 02/21/18 02/21/18 02/21/18 07:10 07:10 08:46 WBC RBC Hgb Hct MCV MCH MCHC RDW Plt Count MPV Sodium 134 L Potassium 5.0 Chloride 105 Carbon Dioxide 22 Anion Gap 7 L BUN 57 H Creatinine 2.3 H Creat Clearance w eGFR 29.15 POC Glucometer 140 Random Glucose 132 H Calcium 7.7 L Ferritin 175.7 Creatine Kinase 910 H Creatine Kinase Index 2.8 CK-MB (CK-2) 25.8 H Troponin I 15.70 H* Vitamin B12 1898 H TSH 0.27 L D Free T4 1.37 H Stool Occult Blood Blood Type Antibody Screen Crossmatch 02/21/18 02/21/18 02/21/18 09:00 12:00 12:16 WBC RBC Hgb Hct MCV MCH MCHC RDW Plt Count MPV Sodium Potassium Chloride Carbon Dioxide Anion Gap BUN Creatinine Creat Clearance w eGFR POC Glucometer 180 Random Glucose Calcium Ferritin Creatine Kinase Cancelled Creatine Kinase Index CK-MB (CK-2) Troponin I Cancelled Vitamin B12 TSH Free T4 Stool Occult Blood Positive Blood Type Antibody Screen Crossmatch 02/21/18 13:05 WBC RBC Hgb Hct MCV MCH MCHC RDW Plt Count MPV Sodium Potassium Chloride Carbon Dioxide Anion Gap BUN Creatinine Creat Clearance w eGFR POC Glucometer Random Glucose Calcium Ferritin Creatine Kinase 864 H Creatine Kinase Index 2.9 CK-MB (CK-2) 25.8 H Troponin I 15.00 H* Vitamin B12 TSH Free T4 Stool Occult Blood Blood Type Antibody Screen Crossmatch Active Medications Generic Name Dose Route Start Last Admin Trade Name Freq PRN Reason Stop Dose Admin Aspirin 81 mg 02/18/18 10:00 02/21/18 10:43 Asa - PO 81 mg DAILY J CARLOS Administration Atorvastatin Calcium 80 mg 02/21/18 22:00 Lipitor - PO HS J CARLOS Chlorhexidine Gluconate 1 applic 02/21/18 22:00 Hibiclens For Decolonization - TP HS J CARLOS Collagenase 1 applic 02/18/18 10:00 02/21/18 10:44 Santyl - TP 1 applic DAILY J CARLOS Administration Protocol Furosemide 40 mg 02/18/18 06:00 02/21/18 13:54 Lasix - PO Not Given BIDLASIX J CARLOS Sodium Chloride 1,000 mls @ 83 mls/hr 02/21/18 10:00 02/21/18 10:43 Normal Saline - IV 83 mls/hr ASDIR J CARLOS Administration Insulin Aspart 1 vial 02/21/18 16:30 Novolog Vial Sliding Scale - SQ ACHS [facility] Protocol Insulin Detemir 10 units 02/17/18 22:00 02/20/18 21:43 Levemir Vial SQ 10 units HS J CARLOS Administration Lactulose 20 gm 02/17/18 22:00 02/21/18 13:52 Cephulac (Oral Use) PO Not Given TID J CARLOS Lisinopril 20 mg 02/18/18 10:00 02/21/18 10:32 Prinivil PO Not Given DAILY [facility] Multivitamins/Minerals/Vitamin C 1 tab 02/18/18 10:00 02/21/18 10:47 Tab-A-Vit - PO 1 tab DAILY [facility] Administration Mupirocin 1 applic 02/21/18 22:00 Bactroban Ointment (For Decolonization) - NS 02/26/18 21:59 BID J CARLOS Nadolol 20 mg 02/18/18 10:00 02/21/18 10:32 Corgard - PO Not Given DAILY J CARLOS Pantoprazole Sodium 40 mg 02/22/18 10:00 Protonix Iv IVPUSH DAILY J CARLOS Polyethylene Glycol 17 gm 02/21/18 10:00 02/21/18 10:46 Miralax (For Daily Use) - PO 17 gm DAILY J CARLOS Administration Ranolazine 1,000 mg 02/17/18 22:00 02/21/18 10:46 Ranexa - PO 1,000 mg BID J CARLOS Administration Rifaximin 550 mg 02/17/18 22:00 02/21/18 10:47 Xifaxan - PO 550 mg BID J CARLOS Administration Senna 1 tab 02/21/18 22:00 Senna - PO HS J CARLOS Spironolactone 50 mg 02/18/18 10:00 02/21/18 10:32 Aldactone - PO Not Given DAILY J CARLOS ASSESSMENT/PLAN: Logan Schaeffer is a 58yo man with a PMH of HTN, HLD, CAD, chronic anemia, HERNANDEZ , HDCC, ascites, esophageal varicies, IDDM, PVD, admitted to the hospital on 02/17 for debridement of a diabetic foot ulcer, now s/p IR paracentesis with removal of 9L of ascites yesterday. He had an NSTEMI this morning with trop elevation to 15.7 and was subsequently hypotensive to 65/35, though his BP improved with IV fluids. He was transferred to the ICU for monitoring. Neuro: - A&Ox2. Unclear whether this is new, may be secondary to hypotension. CV: - NSTEMI. h/o HTN, HLD, CAD - Trop elevated to 15.7 --> 15.0. Will recheck at 6pm to ensure trop is downtrending - Repeat EKG at 6pm - Continue home ASA, statin, ranolazine. No heparin in the setting of guaiac positive stool - Holding home lisinopril, lasix, spironolactone in the setting of hypotension - Hypotension most likely due to large volume paracentesis yesterday Pulm: - h/o orthopnea, dyspnea - Supplemental O2 to keep sats over 90 - IS 10x per hour Heme: - Chronic anemia - Repeat CBC in evening today given guaiac positive stool - Monitor daily CBC GI: - h/o HCC, HERNANDEZ, ascites, esophageal varicies - NPO - Dr Wilson consulted for +guaiac - Continue lactulose, rifamixin, natolol, pantoprazole - No BM recorded since admission. Encourage use of lactulose, miralax, senna Renal: - Holding diuretics due to hypotension - Monitor lytes, kidney function ID: - No issues Endo: - IDDM - Continue insulin Musc: - Fall precautions PPx: - Holding heparin due to possible GI bleed; no LE compression due to PVD - Pantoprazole FEN: - NPO - NS@83 - Replete lytes PRN Dispo: - Monitor in ICU Discussed with Dr Andreina Smith PGY1 Visit type - Emergency Visit Emergency Visit: No - New Patient This patient is new to me today: Yes Date on this admission: 02/21/18 - Critical Care Critical Care patient: Yes Total Critical Care Time (in minutes): 45 Critical Care Statement: The care of this patient involved high complexity decision making to prevent further life threatening deterioration of the patient 's condition and/or to evaluate & treat vital organ system(s) failure or risk of failure.
--- NOTE | 2018-02-21 17:20 | PN ---
Progress Note (short form) - Note Progress Note: events noted s/p paracentesis yesterday develeoped anemia and hypotension this am some chest pain some low grade fever- tmax yest 99.8- temp now transferring to ICU for hypotension and elevated troponin 15 chest pain has resolved currently alert no pain oriented to name and place d/w at bedside Vital Signs Period Temp Pulse Resp BP Sys/Ferrell Pulse Ox Last 24 Hr 97.8 F-99.8 F 52-68 20-20 68-94/37-53 97 cor-rrr lungs decreased bs at bases abd soft,nt ext wound is clean left foot, no erythema no drainage MRI- no osteomyelitis CBC, BMP 02/21/18 07:10 02/21/18 07:10 a/p hypotension positive troponins for transfer to ICU hypotension may partially be due to paracentesis but will obtain cultures and cover for sepsis vancomycin check levels in am cefepilme adjusted for SHANEKA/ckd over 45 minutes spent in the care of this patient d/w ICU team Problem List - Problems (1) Diabetic foot ulcer associated with type 2 diabetes mellitus Code(s): E11.621 - TYPE 2 DIABETES MELLITUS WITH FOOT ULCER; L97.509 - NON- PRESSURE CHRONIC ULCER OTH PRT UNSP FOOT W UNSP SEVERITY Qualifiers: Laterality: left (2) Ascites Code(s): R18.8 - OTHER ASCITES Qualifiers: Ascites type: malignant Qualified Code(s): R18.0 - Malignant ascites (3) Hepatocellular carcinoma Code(s): C22.0 - LIVER CELL CARCINOMA
[2018-02-21] MEDS ORDERED: CEFEPIME 1 GM in DEXTROSE 5%-WATER - 50 ML IVPB SCH (17:45)
[2018-02-21] MEDS ORDERED: VANCOMYCIN 1,250 MG in DEXTROSE 5%-WATER - 250 ML IVPB ONE (17:45)
--- NOTE | 2018-02-21 17:55 | CON.GI ---
Consult Consult Specialty:: GI - History of Present Illness History of Present Illness: Prior admissions going back to early 2017 reviewed. A 57-year-old gentleman with history of Diabetes, metabolic liver disease, liver cirrhosis, portal hypertension, grade 3 esophageal varices status post banding, portal veins from boluses, hepatocellular carcinoma status post radiation therapy, followed at [facility] by Drs. Geronimo and Justice. Admitted for lower extremity infection and need for debridement. GI was called for moderate ascites. Asymptomatic. EGD 09/30 showed gastric and esophageal varices. S/p TACE by Dr Mchugh. S/p large volume paracentesis yesterday, today noted to be hypotensive and guaiac postive stool. There were no reports of melena and rectal bleeding. He was noted to have worsening abdominal distention - Past Medical History GORE STITCHER: Yes: Peripheral Neuropathy Cardio/Vascular: Yes: CAD, HTN, Hyperlipdemia Gastrointestinal: Yes: Ascites, Esophageal Varices, Gastritis, GI Bleed, Hemorrhoids, Other Hepatobiliary: Yes: Cirrhosis (h/o esophageal varices s/p banding, related to HERNANDEZ), Cholelithiasis (s/p lap choly), Other (PORTAL VEIN PARTIAL THROMBOSIS, HCC treated with transhepatic heat ablations at [facility]) Renal/: Yes: Renal Inusuff Infectious Disease: Yes: MRSA, Other (osteomyelitis left foot ) Endocrine: Yes: Diabetes Mellitus - Past Surgical History Past Surgical History: Yes: Amputation (left toe #4, right toes #2,3), Cholecystectomy, Colonoscopy, Hernia Repair, Upper Endoscopy - Alcohol/Substance Use Hx Alcohol Use: No History of Substance Use: reports: None - Smoking History Smoking history: Never smoked Have you smoked in the past 12 months: No Aproximately how many cigarettes per day: 0 - Social History Usual Living Arrangement: With Spouse ADL: Independent 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 [employer] History of Recent Travel: No Home Medications - Allergies Allergies/Adverse Reactions: Allergies Allergy/AdvReac Type Severity Reaction Status Date / Time Iodinated Contrast- Oral and Allergy Verified 02/17/18 14:11 IV Dye [Iodinated Contrast Media - IV Dye] - Home Medications Home Medications: Ambulatory Orders Aspirin [ASA -] 81 mg PO DAILY 12/20/17 Atorvastatin Ca [Lipitor] 10 mg PO DAILY 12/20/17 Furosemide [Lasix -] 40 mg PO BID 12/20/17 Lisinopril 20 mg PO DAILY 12/20/17 Multivitamins [Multivit ([facility] Formulary)] 1 tab PO DAILY 12/20/17 Nadolol 20 mg PO DAILY 12/20/17 Nateglinide [Starlix (Nf) -] 60 mg PO TID 12/20/17 Pantoprazole Sodium [Protonix -] 40 mg PO DAILY 12/20/17 Ranolazine [Ranexa -] 1,000 mg PO BID 12/20/17 Rifaximin [Xifaxan -] 550 mg PO BID 12/20/17 Spironolactone 50 mg PO DAILY 12/20/17 metFORMIN HCL [Metformin HCl] 500 mg PO BID 12/20/17 Insulin (Levemir) [Levemir Vial] 10 units SQ HS units 12/25/17 Lactulose (Oral Use) [Cephulac -] 20 gm PO TID udc 12/25/17 Family Disease History - Family Disease History Family Disease History: Diabetes: Brother (alcoholic cirrhosis), Sister, CA: Mother (breast Ca), Other: Father ( from alcohol related complications) Physical Exam-GI Vital Signs: Vital Signs Temperature 98.3 F 02/21/18 17:08 Pulse Rate 59 L 02/21/18 17:08 Respiratory Rate 20 02/21/18 17:08 Blood Pressure 69/37 L 02/21/18 17:08 O2 Sat by Pulse Oximetry (%) 97 02/21/18 09:00 Constitutional: Yes: Well Nourished Eyes: Yes: Conjunctiva Clear HENT: Yes: Atraumatic Neck: Yes: Supple Cardiovascular: Yes: Regular Rate and Rhythm Respiratory: Yes: CTA Bilaterally Gastrointestinal Inspection: Yes: Ascites ...Palpate: Yes: Soft. No: Firm/Rigid, Guarding, Hepatomegaly, Mass, Pulsatile Mass, Splenomegaly, Tenderness, Tenderness, Epigastium ...Percussion: Yes: Fluid Wave Labs: CBC, BMP 02/21/18 07:10 02/21/18 07:10 INR, PTT INR 1.25 (0.83-1.09) H 02/17/18 16:30 Problem List - Problems (1) Hepatoma Code(s): C22.0 - LIVER CELL CARCINOMA (2) Hypotension Assessment/Plan: etiology include secondary to sepsis and occult bleeding intraperitoneum R> give albumin every for hours for 4 doses then every 6 hours for 4 doses left message with Dr Rendon transfuse 1 unit of platelets and 2 units FFP discussed with ICU resident avoid IVF if possible continue Octreotide drip IV Protonix Code(s): I95.9 - HYPOTENSION, UNSPECIFIED
[2018-02-21] MEDS: ALBUMIN HUMAN 25% 12.5 GM/50 ML VIAL IVPB SCH ×6 (18:01→23:00)
[2018-02-21 18:56] LABS: HEMATOCRIT 25.8 % (35.4-49); HEMOGLOBIN 8.6 GM/dL (11.7-16.9); MCH 29.8 pg (25.7-33.7); MCHC 33.2 g/dl (32.0-35.9); MEAN CELL VOLUME 89.7 fl (80-96); MEAN PLT VOLUME 7.9 fl (7.5-11.1); PLATELET COUNT 113 K/MM3 (134-434); RBC 2.88 M/mm3 (4.00-5.60); RDW 20.7 % (11.9-15.9); WHITE BLOOD COUNT 17.7 K/mm3 (4.0-10.0)
[2018-02-21] MEDS ORDERED: ALBUMIN HUMAN 25% 12.5 GM/50 ML VIAL IVPB SCH (19:30)
[2018-02-21 19:42] LABS: URINE APPEARANCE SLCLOUDY; URINE BILIRUBIN NEGATIVE (<2.0 mg/dL); URINE COLOR AMBER; URINE GLUCOSE (UA) NEGATIVE (NEGATIVE); URINE KETONE NEGATIVE (NEGATIVE); URINE LEUK ESTERASE NEGATIVE (NEGATIVE); URINE NITRITE NEGATIVE (NEGATIVE); URINE PROTEIN NEGATIVE (NEGATIVE); URINE UROBILINOGEN 4.0 E.U/dl mg/dL (0.2-1.0)
[2018-02-21] MEDS: OCTREOTIDE ACETATE 1,200 MCG in DEXTROSE 5%-WATER - 488 ML IVPB SCH (20:35)
[2018-02-21] MEDS: CEFEPIME 1 GM in DEXTROSE 5%-WATER 100 ML IVPB SCH (20:36)
--- NOTE | 2018-02-21 20:48 | PN ---
Progress Note (short form) - Note Progress Note: Spoke with Dr Wilson and Dr Dominique about the patients hypotension. It has been agreed that the best treatment is volume expansion with Albumin 24 q 4 hr x 4, then 25 q6 hr x 4, 1 u platelets, 2 u ffp. since patient already got 4 doses of albumin 12.5 today, will give another 4 or 12.[address] Wilson also recommended octreotide gtt and liver US to evaluate tumor size (s /p TACE) Dr Rendon would accept patient to [place] if condition worsens [phone]
[2018-02-21] MEDS: CHLORHEXIDINE GLUCONATE 4% CLEANSER FOR DECOLONIZATION TP SCH (21:54)
[2018-02-21] MEDS: MUPIROCIN 2% TOPICAL OINTMENT FOR DECOLONIZATION NS SCH (21:54)
[2018-02-21] MEDS: ATORVASTATIN CA 80 MG TABLET (FP) PO SCH (21:54)
[2018-02-21] MEDS: SENNOSIDES 8.6MG TABLET (FP) PO SCH (21:55)
[2018-02-21] MEDS: INSULIN (LEVEMIR) 100 UNITS/ML UNITS SQ SCH (22:16)
[2018-02-22] MEDS ORDERED: ALBUMIN HUMAN 25% 12.5 GM/50 ML VIAL IVPB ONE (01:30)
[2018-02-22] MEDS: ALBUMIN HUMAN 25% 12.5 GM/50 ML VIAL IVPB SCH (03:49)
[2018-02-22] MEDS: INSULIN SLIDING SCALE (NOVOLOG) 1 VIAL SQ SCH ×3 (06:11→17:11)
[2018-02-22] MEDS: LACTULOSE 20 GM/30 ML UDC (FOR ORAL USE ONLY) PO SCH ×2 (06:11→13:46)
[2018-02-22 06:33] LABS: HEMATOCRIT 24.3 % (35.4-49); MCH 29.7 pg (25.7-33.7); MCHC 32.7 g/dl (32.0-35.9); MEAN CELL VOLUME 90.8 fl (80-96); MEAN PLT VOLUME 7.9 fl (7.5-11.1); PLATELET COUNT 109 K/MM3 (134-434); RBC 2.68 M/mm3 (4.00-5.60); RDW 20.5 % (11.9-15.9)
[2018-02-22 06:55] LABS: INR 1.51 (0.83-1.09); PROTHROMBIN TIME (PATIENT) 17.9 SEC (9.7-13.0)
[2018-02-22 06:57] LABS: ACTIVATED PTT 40.6 SECONDS (25.2-36.5)
[2018-02-22] MEDS ORDERED: PT OWN MED DRAWER 7, Y5N ONE ×11 (08:17→23:56)
[2018-02-22 08:22] LABS: ANION GAP 13 MMOL/L (8-16); BLOOD UREA NITROGEN 59 mg/dL (7-18); CALCIUM 8.2 mg/dL (8.5-10.1); CHLORIDE 104 mmol/L (98-107); CO2 18 mmol/L (21-32); CREATININE 2.4 mg/dL (0.55-1.3); GLUCOSE,RANDOM 168 mg/dL (74-106); LDH 310 U/L (87-246); MAGNESIUM 2.2 mg/dL (1.8-2.4); PHOSPHOROUS 4.5 mg/dL (2.5-4.9); POTASSIUM 5.2 mmol/L (3.5-5.1); SODIUM 135 mmol/L (136-145)
--- NOTE | 2018-02-22 08:49 | PN ---
Progress Note, Physician History of Present Illness: events noted transferred to icu--positive troponin and hypotension - Current Medication List Current Medications: Active Medications Albumin Human (Albumin Human 25% -) 25 gm IVPB Q6H [facility] Stop: 02/23/18 07:31 Aspirin (Asa -) 81 mg PO DAILY [facility] Last Admin: 02/21/18 10:43 Dose: 81 mg Atorvastatin Calcium (Lipitor -) 80 mg PO HS J CARLOS Last Admin: 02/21/18 21:54 Dose: 80 mg Chlorhexidine Gluconate (Hibiclens For Decolonization -) 1 applic TP HS [facility] Last Admin: 02/21/18 21:54 Dose: 1 applic Collagenase (Santyl -) 1 applic TP DAILY [facility]; Protocol Last Admin: 02/21/18 10:44 Dose: 1 applic Furosemide (Lasix -) 40 mg PO BIDLASIX [facility] Last Admin: 02/21/18 13:54 Dose: Not Given Sodium Chloride (Normal Saline -) 1,000 mls @ 83 mls/hr IV ASDIR [facility] Last Admin: 02/21/18 10:43 Dose: 83 mls/hr Octreotide Acetate 1,200 mcg/ (Dextrose) 500 mls @ 20.83 mls/hr IVPB ASDIR J CARLOS ; Protocol Last Admin: 02/21/18 20:35 Dose: 20.83 mls/hr Cefepime HCl 1 gm/ Dextrose 100 mls @ 100 mls/hr IVPB Q12H [facility]; Protocol Last Admin: 02/21/18 20:36 Dose: 100 mls/hr Insulin Aspart (Novolog Vial Sliding Scale -) 1 vial SQ ACHS [facility]; Protocol Last Admin: 02/22/18 06:11 Dose: 3 unit Insulin Detemir (Levemir Vial) 10 units SQ HS [facility] Last Admin: 02/21/18 22:16 Dose: 10 units Lactulose (Cephulac (Oral Use)) 20 gm PO TID [facility] Last Admin: 02/22/18 06:11 Dose: 20 gm Lidocaine (Lidoderm Patch -) 1 patch TP DAILY [facility] Lisinopril (Prinivil) 20 mg PO DAILY [facility] Last Admin: 02/21/18 10:32 Dose: Not Given Miscellaneous (Lidoderm Patch Removal) 1 each MC DAILY@2200 [facility] Multivitamins/Minerals/Vitamin C (Tab-A-Vit -) 1 tab PO DAILY [facility] Last Admin: 10/09/18 10:47 Dose: 1 tab Mupirocin (Bactroban Ointment (For Decolonization) -) 1 applic NS BID [facility] Stop: 02/26/18 21:59 Last Admin: 02/21/18 21:54 Dose: 1 applic Nadolol (Corgard -) 20 mg PO DAILY [facility] Last Admin: 02/21/18 10:32 Dose: Not Given Pantoprazole Sodium (Protonix Iv) 40 mg IVPUSH DAILY [facility] Polyethylene Glycol (Miralax (For Daily Use) -) 17 gm PO DAILY [facility] Last Admin: 02/21/18 10:46 Dose: 17 gm Ranolazine (Ranexa -) 1,000 mg PO BID [facility] Last Admin: 02/21/18 21:56 Dose: 1,000 mg Rifaximin (Xifaxan -) 550 mg PO BID [facility] Last Admin: 02/21/18 21:56 Dose: 550 mg Senna (Senna -) 1 tab PO HS [facility] Last Admin: 02/21/18 21:55 Dose: 1 tab Spironolactone (Aldactone -) 50 mg PO DAILY [facility] Last Admin: 02/21/18 10:32 Dose: Not Given - Objective Vital Signs: Vital Signs Temperature 98.9 F 02/22/18 06:00 Pulse Rate 60 02/22/18 06:00 Respiratory Rate 21 H 02/22/18 06:00 Blood Pressure 86/58 L 02/22/18 06:00 O2 Sat by Pulse Oximetry (%) 97 02/21/18 20:15 Cardiovascular: Yes: Murmur, S1, S2 Respiratory: Yes: Diminished, On Nasal O2 Gastrointestinal: Yes: Normal Bowel Sounds, Soft, Ascites, Distention Neurological: Yes: Alert, Weakness Labs: CBC, BMP 02/22/18 05:30 02/22/18 05:30 INR, PTT INR 1.51 (0.83-1.09) H 02/22/18 05:30 Problem List - Problems (1) Non-ST elevated myocardial infarction Assessment/Plan: -Follow cardiac enzymes - cardio consult - hold clopidogrel, heparin due to anemia requiring transfusion - continue atorvastatin, aspirin - normal EF on echo 02/20 Code(s): I21.4 - NON-ST ELEVATION (NSTEMI) MYOCARDIAL INFARCTION (2) Ascites Assessment/Plan: -s/p tap - gi on case - holding diuretics in setting of hypotension as above - on octreotide, IV protonix Code(s): R18.8 - OTHER ASCITES Qualifiers: Ascites type: malignant Qualified Code(s): R18.0 - Malignant ascites (3) Hepatoma Assessment/Plan: per gi Code(s): C22.0 - LIVER CELL CARCINOMA (4) Hypotension Assessment/Plan: maybe due to paracentesis monitor cultures done iv abx Code(s): I95.9 - HYPOTENSION, UNSPECIFIED (5) Diabetes mellitus, insulin dependent (IDDM), uncontrolled Assessment/Plan: bgm Code(s): E10.65 - TYPE 1 DIABETES MELLITUS WITH HYPERGLYCEMIA (6) Elevated troponin I level Assessment/Plan: as above Code(s): R74.8 - ABNORMAL LEVELS OF OTHER SERUM ENZYMES
[2018-02-22] MEDS: LIDOCAINE 5% TOPICAL PATCH TP SCH ×2 (08:53→10:46)
--- NOTE | 2018-02-22 10:25 | PN ---
Progress Note (short form) - Note Progress Note: s: chest pain this AM as well as abdominal pain. no dyspnea, edema, orthopnea, PND Current Medications Albumin Human (Albumin Human 25% -) 25 gm IVPB Q6H [facility] Stop: 02/23/18 07:31 Aspirin (Asa -) 81 mg PO DAILY [facility] Last Admin: 02/21/18 10:43 Dose: 81 mg Atorvastatin Calcium (Lipitor -) 80 mg PO HS [facility] Last Admin: 02/21/18 21:54 Dose: 80 mg Chlorhexidine Gluconate (Hibiclens For Decolonization -) 1 applic TP HS [facility] Last Admin: 02/21/18 21:54 Dose: 1 applic Collagenase (Santyl -) 1 applic TP DAILY [facility]; Protocol Last Admin: 02/21/18 10:44 Dose: 1 applic Furosemide (Lasix -) 40 mg PO BIDLASIX [facility] Last Admin: 02/21/18 13:54 Dose: Not Given Octreotide Acetate 1,200 mcg/ (Dextrose) 500 mls @ 20.83 mls/hr IVPB ASDIR [facility] ; Protocol Last Admin: 02/21/18 20:35 Dose: 20.83 mls/hr Cefepime HCl 1 gm/ Dextrose 100 mls @ 100 mls/hr IVPB Q12H [facility]; Protocol Last Admin: 02/21/18 20:36 Dose: 100 mls/hr Insulin Aspart (Novolog Vial Sliding Scale -) 1 vial SQ ACHS [facility]; Protocol Last Admin: 02/22/18 06:11 Dose: 3 unit Insulin Detemir (Levemir Vial) 10 units SQ HS [facility] Last Admin: 02/21/18 22:16 Dose: 10 units Lactulose (Cephulac (Oral Use)) 20 gm PO TID [facility] Last Admin: 02/22/18 06:11 Dose: 20 gm Lidocaine (Lidoderm Patch -) 1 patch TP DAILY [facility] Last Admin: 02/22/18 08:53 Dose: 1 patch Lisinopril (Prinivil) 20 mg PO DAILY [facility] Last Admin: 02/21/18 10:32 Dose: Not Given Miscellaneous (Lidoderm Patch Removal) 1 each MC DAILY@2200 [facility] Multivitamins/Minerals/Vitamin C (Tab-A-Vit -) 1 tab PO DAILY [facility] Last Admin: 02/21/18 10:47 Dose: 1 tab Mupirocin (Bactroban Ointment (For Decolonization) -) 1 applic NS BID [facility] Stop: 02/26/18 21:59 Last Admin: 02/21/18 21:54 Dose: 1 applic Nadolol (Corgard -) 20 mg PO DAILY [facility] Last Admin: 02/21/18 10:32 Dose: Not Given Pantoprazole Sodium (Protonix Iv) 40 mg IVPUSH DAILY [facility] Polyethylene Glycol (Miralax (For Daily Use) -) 17 gm PO DAILY [facility] Last Admin: 02/21/18 10:46 Dose: 17 gm Ranolazine (Ranexa -) 1,000 mg PO BID [facility] Last Admin: 02/21/18 21:56 Dose: 1,000 mg Rifaximin (Xifaxan -) 550 mg PO BID [facility] Last Admin: 02/21/18 21:56 Dose: 550 mg Senna (Senna -) 1 tab PO HS [facility] Last Admin: 02/21/18 21:55 Dose: 1 tab Spironolactone (Aldactone -) 50 mg PO DAILY [facility] Last Admin: 02/21/18 10:32 Dose: Not Given Vital Signs: Vital Signs Period Temp Pulse Resp BP Sys/Ferrell Pulse Ox Last 24 Hr 98.3 F-99.8 F 52-88 18-22 68-94/37-66 97-97 Constitutional: Yes: Well Nourished, No Distress, Calm Eyes: Yes: Conjunctiva Clear, EOM Intact HENT: Yes: Atraumatic, Normocephalic Neck: Yes: Supple, Trachea Midline Respiratory: Yes: Regular, CTA Bilaterally Gastrointestinal: Yes: Normal Bowel Sounds Renal/: Yes: WNL Cardiovascular: Yes: Regular Rate and Rhythm JVD: No Heart Sounds: Yes: S1, S2 Edema: Yes Edema: LLE: 2+ Peripheral Pulses WNL: Yes Integumentary: No: Jaundice Neurological: Yes: Alert, Oriented ...Motor Strength: WNL Psychiatric: Yes: Alert, Oriented Assessment/Plan EKG: sinus fermín, LAD, LVH Echo 10/2016 LV mildly dilated, nl LV function, RV nl function and size, mildly dilated RA, tr TR echo 02/2018 LV mildly dilated, nl LV function EF 60-65%, grade II diastolic dysfunction, increased filling pressures, RV nl, LA mod dilatd, RA nl mibi 05/2015 no ischemia, EF 53% 58M h/o CAD s/p stents 2007,HERNANDEZ, HCC with ascites, DM, foot ulcer p/w foot ulcer debridement, ascites, now with NSTEMI NSTEMI - trop 15.7->15.0->13, event likely happened hours to days prior to initial troponin was checked given was already downtrending - this morning episode of chest pain with repeat trop 19, EKG no acute changes - mild MARGARITO in I, aVL on EKG yesterday, now resolved, may be LCx lesion - discussed case with Dr. 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 Rendon is at [facility] - continue atorvastatin, aspirin, ranolazine - normal EF on echo 02/20 hypotension - likely related to fluid shifts from paracentesis s/p 9L removed vs septic, on broad spectrum abx per ID - albumin per GI, holding diuretics ascites, LLE edema - ascites likely in setting of HCC, HERNANDEZ - on spironolactone and lasix at home, now s/p paracentesis - edema likely in setting of lower ext wound - no sob, JVD, lungs clear - echo normal EF, with diastolic dysfunction - holding diuretics in setting of hypotension as above HCC, HERNANDEZ, cirrhosis - on octreotide, IV protonix GI following - plan for transfer to [facility] for tertiary caer foot ulcer - wound care, ID consulted with plan for debridement this week - patient is not cleared from cardiac standpoint due to NSTEMI, hypotension - on abx CAD - on aspirin, statin, ranolazine - manage NSTEMI as above - normal EF on echo 02/2018, grade II diastolic dysfunction DM - manage per primary team
[2018-02-22] MEDS ORDERED: VANCOMYCIN 1,000 MG in DEXTROSE 5%-WATER - 250 ML IVPB ONE (10:27)
--- NOTE | 2018-02-22 10:30 | PN ---
Progress Note (short form) - Note Progress Note: now in ICU alert complains of chest pain this am Vital Signs Period Temp Pulse Resp BP Sys/Ferrell Pulse Ox Last 24 Hr 98.3 F-99.8 F 52-88 18-22 68-94/37-66 97-97 cor-rrr lungs decreased bs at bases abd soft,distended, +ascites ext- dressing intact left foot gonzalez CBC, BMP 02/22/18 05:30 02/22/18 05:30 Microbiology 02/21/18 18:00 Blood - Peripheral Venous Blood Culture - Preliminary Pending Organism 02/21/18 18:50 Blood - Peripheral Venous Blood Culture - Preliminary Pending Organism 02/19/18 13:00 Urine - Urine Clean Catch Urine Culture - Final Contaminated: Please Repeat Current Medications Albumin Human (Albumin Human 25% -) 25 gm IVPB Q6H [facility] Stop: 02/23/18 07:31 Aspirin (Asa -) 81 mg PO DAILY [facility] Last Admin: 02/21/18 10:43 Dose: 81 mg Atorvastatin Calcium (Lipitor -) 80 mg PO HS [facility] Last Admin: 02/21/18 21:54 Dose: 80 mg Chlorhexidine Gluconate (Hibiclens For Decolonization -) 1 applic TP HS [facility] Last Admin: 02/21/18 21:54 Dose: 1 applic Collagenase (Santyl -) 1 applic TP DAILY [facility]; Protocol Last Admin: 02/21/18 10:44 Dose: 1 applic Furosemide (Lasix -) 40 mg PO BIDLASIX [facility] Last Admin: 02/21/18 13:54 Dose: Not Given Octreotide Acetate 1,200 mcg/ (Dextrose) 500 mls @ 20.83 mls/hr IVPB ASDIR [facility] ; Protocol Last Admin: 02/21/18 20:35 Dose: 20.83 mls/hr Cefepime HCl 1 gm/ Dextrose 100 mls @ 100 mls/hr IVPB Q12H [facility]; Protocol Last Admin: 02/21/18 20:36 Dose: 100 mls/hr Vancomycin HCl 1,000 mg/ (Dextrose) 250 mls @ 166.667 mls/hr IVPB ONCE ONE; Protocol Stop: 02/22/18 11:56 Insulin Aspart (Novolog Vial Sliding Scale -) 1 vial SQ ACHS [facility]; Protocol Last Admin: 02/22/18 06:11 Dose: 3 unit Insulin Detemir (Levemir Vial) 10 units SQ HS [facility] Last Admin: 02/21/18 22:16 Dose: 10 units Lactulose (Cephulac (Oral Use)) 20 gm PO TID [facility] Last Admin: 02/22/18 06:11 Dose: 20 gm Lidocaine (Lidoderm Patch -) 1 patch TP DAILY [facility] Last Admin: 02/22/18 08:53 Dose: 1 patch Lisinopril (Prinivil) 20 mg PO DAILY [facility] Last Admin: 02/21/18 10:32 Dose: Not Given Miscellaneous (Lidoderm Patch Removal) 1 each MC DAILY@2200 [facility] Multivitamins/Minerals/Vitamin C (Tab-A-Vit -) 1 tab PO DAILY [facility] Last Admin: 02/21/18 10:47 Dose: 1 tab Mupirocin (Bactroban Ointment (For Decolonization) -) 1 applic NS BID [facility] Stop: 02/26/18 21:59 Last Admin: 02/21/18 21:54 Dose: 1 applic Nadolol (Corgard -) 20 mg PO DAILY [facility] Last Admin: 02/21/18 10:32 Dose: Not Given Pantoprazole Sodium (Protonix Iv) 40 mg IVPUSH DAILY [facility] Polyethylene Glycol (Miralax (For Daily Use) -) 17 gm PO DAILY [facility] Last Admin: 02/21/18 10:46 Dose: 17 gm Ranolazine (Ranexa -) 1,000 mg PO BID [facility] Last Admin: 02/21/18 21:56 Dose: 1,000 mg Rifaximin (Xifaxan -) 550 mg PO BID [facility] Last Admin: 02/21/18 21:56 Dose: 550 mg Senna (Senna -) 1 tab PO HS [facility] Last Admin: 02/21/18 21:55 Dose: 1 tab Spironolactone (Aldactone -) 50 mg PO DAILY [facility] Last Admin: 02/21/18 10:32 Dose: Not Given a/p sepsis- gram positive bacteremia- on vancomycin by levels, cefepime to continue repeat blood cultures in am, check echo r/o endocarditis hypotension positive troponins-chest pain- eval by ICU/cardiology- nurse notified hepatoma history of MRSA osteo- MRI this admission no osteo vancomycin check levels in am cefepilme adjusted for SHANEKA/ckd Problem List - Problems (1) Diabetic foot ulcer associated with type 2 diabetes mellitus Code(s): E11.621 - TYPE 2 DIABETES MELLITUS WITH FOOT ULCER; L97.509 - NON- PRESSURE CHRONIC ULCER OTH PRT UNSP FOOT W UNSP SEVERITY Qualifiers: Laterality: left (2) Ascites Code(s): R18.8 - OTHER ASCITES Qualifiers: Ascites type: malignant Qualified Code(s): R18.0 - Malignant ascites (3) Hepatocellular carcinoma Code(s): C22.0 - LIVER CELL CARCINOMA
[2018-02-22] MEDS ORDERED: RANOLAZINE E.R. 500 MG TABLET (FP) ONE ×2 (10:49→22:06)
[2018-02-22] MEDS: CEFEPIME 1 GM in DEXTROSE 5%-WATER 100 ML IVPB SCH ×3 (10:54→22:10)
[2018-02-22] MEDS ORDERED: MORPHINE SULFATE 2 MG/ML VIAL IVPUSH ONE (10:55)
[2018-02-22] MEDS: PANTOPRAZOLE SODIUM 40 MG VIAL IVPUSH SCH (10:58)
[2018-02-22] MEDS: ASPIRIN 81 MG CHEWABLE TABLETS PO SCH (10:59)
[2018-02-22] MEDS: MULTIVITAMINS (DAILY MVI) TABLET (FP) PO SCH (10:59)
[2018-02-22] MEDS: RIFAXIMIN 550 MG TABLET (UD) PO SCH ×2 (10:59→22:12)
[2018-02-22] MEDS: RANOLAZINE E.R. 1,000 MG TABLET (FP) PO SCH (11:00)
--- NOTE | 2018-02-22 11:15 | PN ---
Progress Note (short form) - Note Progress Note: Podiatry F/U: Seen/evaluated at bedside. Complains of chest pain. Afebrile. GEORGE: L foot: lateral fifth ray diabetic ulcer fibrogranular base, exposed cuboid, no purulence, no fluctuance, no streaking cellulitis, no soft tissue crepitus, no signs of active infection MRI L foot: negative for osteomyelitis h/o MRSA Imp: 58 year old DM M with L foot DFU 1. Abx per ID 2. Continue local wound care 3. Not stable for any podiatric procedure at this time. Likely getting transferred to [facility] for further management. Will be on standby until complex medical conditions are rectified. Angel Aguirre DPM
--- NOTE | 2018-02-22 11:22 | EKG ---
Test Reason : Blood Pressure : / mmHG Vent. Rate : 054 BPM Atrial Rate : 054 BPM P-R Int : 194 ms QRS Dur : 140 ms QT Int : 504 ms P-R-T Axes : 055 -29 016 degrees QTc Int : 477 ms SINUS BRADYCARDIA NON-SPECIFIC INTRA-VENTRICULAR CONDUCTION BLOCK ABNORMAL ECG WHEN COMPARED WITH ECG OF 21-FEB-2018 09:44, NO SIGNIFICANT CHANGE WAS FOUND Confirmed by JOSE ALFREDO SÁNCHEZ, KRISTINA ([id number]) on 02/22/2018 11:21:59 AM Referred By: Rimma ROSALES Confirmed By:KRISTINA VELIZ MD
--- NOTE | 2018-02-22 12:12 | CONSULT ---
Consult - text type - Consultation Consultation Note: Renal Consult for SHANEKA This is a 58 year old gentleman with hx of HCC s/p radiation Tx, Non- alcoholic cirrhosis, CAD, DM, hx of SHANEKA who presented with LE wound found to have worsening asciteis now with NSTEMI and SHANEKA. Home Medications Medication Instructions Recorded Aspirin [ASA -] 81 mg PO DAILY 12/20/17 Atorvastatin Ca [Lipitor] 10 mg PO DAILY 12/20/17 Furosemide [Lasix -] 40 mg PO BID 12/20/17 Lisinopril 20 mg PO DAILY 12/20/17 Multivitamins [Multivit ([facility] 1 tab PO DAILY 12/20/17 Formulary)] Nadolol 20 mg PO DAILY 12/20/17 Nateglinide [Starlix (Nf) -] 60 mg PO TID 12/20/17 Pantoprazole Sodium [Protonix -] 40 mg PO DAILY 12/20/17 Ranolazine [Ranexa -] 1,000 mg PO BID 12/20/17 Rifaximin [Xifaxan -] 550 mg PO BID 12/20/17 Spironolactone 50 mg PO DAILY 12/20/17 metFORMIN HCL [Metformin HCl] 500 mg PO BID 12/20/17 Insulin (Levemir) [Levemir Vial] 10 units SQ HS units 12/25/17 Lactulose (Oral Use) [Cephulac -] 20 gm PO TID [facility] 12/25/17 Vital Signs Temperature 98.9 F 02/22/18 06:00 Pulse Rate 60 02/22/18 06:00 Respiratory Rate 21 H 02/22/18 06:00 Blood Pressure 86/58 L 02/22/18 06:00 O2 Sat by Pulse Oximetry (%) 97 02/21/18 20:15 Intake & Output 02/19/18 02/20/18 02/21/18 02/22/18 23:59 23:59 23:59 23:59 Intake Total 1550 2700 1396 Output Total 400 1800 600 Balance -400 1550 900 796 Weight 117.027 kg 117.118 kg CBC, BMP 02/22/18 05:30 02/22/18 05:30 Current Medications Albumin Human (Albumin Human 25% -) 25 gm IVPB Q6H [facility] Stop: 02/23/18 07:31 Aspirin (Asa -) 81 mg PO DAILY [facility] Last Admin: 02/22/18 10:59 Dose: 81 mg Atorvastatin Calcium (Lipitor -) 80 mg PO HS [facility] Last Admin: 02/21/18 21:54 Dose: 80 mg Chlorhexidine Gluconate (Hibiclens For Decolonization -) 1 applic TP HS [facility] Last Admin: 02/21/18 21:54 Dose: 1 applic Collagenase (Santyl -) 1 applic TP DAILY [facility]; Protocol Last Admin: 02/21/18 10:44 Dose: 1 applic Furosemide (Lasix -) 40 mg PO BIDLASIX [facility] Last Admin: 02/21/18 13:54 Dose: Not Given Octreotide Acetate 1,200 mcg/ (Dextrose) 500 mls @ 20.83 mls/hr IVPB ASDIR [facility] ; Protocol Last Admin: 02/21/18 20:35 Dose: 20.83 mls/hr Cefepime HCl 1 gm/ Dextrose 100 mls @ 100 mls/hr IVPB Q12H [facility]; Protocol Last Admin: 02/22/18 10:54 Dose: Not Given Insulin Aspart (Novolog Vial Sliding Scale -) 1 vial SQ ACHS [facility]; Protocol Last Admin: 02/22/18 06:11 Dose: 3 unit Insulin Detemir (Levemir Vial) 10 units SQ HS [facility] Last Admin: 02/21/18 22:16 Dose: 10 units Lactulose (Cephulac (Oral Use)) 20 gm PO TID [facility] Last Admin: 02/22/18 06:11 Dose: 20 gm Lidocaine (Lidoderm Patch -) 1 patch TP DAILY [facility] Last Admin: 02/22/18 10:46 Dose: Not Given Lisinopril (Prinivil) 20 mg PO DAILY [facility] Last Admin: 02/21/18 10:32 Dose: Not Given Miscellaneous (Lidoderm Patch Removal) 1 each MC DAILY@2200 [facility] Multivitamins/Minerals/Vitamin C (Tab-A-Vit -) 1 tab PO DAILY [facility] Last Admin: 02/22/18 10:59 Dose: 1 tab Mupirocin (Bactroban Ointment (For Decolonization) -) 1 applic NS BID [facility] Stop: 02/26/18 21:59 Last Admin: 02/21/18 21:54 Dose: 1 applic Nadolol (Corgard -) 20 mg PO DAILY [facility] Last Admin: 02/21/18 10:32 Dose: Not Given Pantoprazole Sodium (Protonix Iv) 40 mg IVPUSH DAILY [facility] Last Admin: 02/22/18 10:58 Dose: 40 mg Polyethylene Glycol (Miralax (For Daily Use) -) 17 gm PO DAILY [facility] Last Admin: 02/21/18 10:46 Dose: 17 gm Ranolazine (Ranexa -) 1,000 mg PO BID [facility] Last Admin: 02/22/18 11:00 Dose: 1,000 mg Rifaximin (Xifaxan -) 550 mg PO BID [facility] Last Admin: 02/22/18 10:59 Dose: 550 mg Senna (Senna -) 1 tab PO HS [facility] Last Admin: 02/21/18 21:55 Dose: 1 tab Spironolactone (Aldactone -) 50 mg PO DAILY [facility] Last Admin: 02/21/18 10:32 Dose: Not Given #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
[2018-02-22] MEDS: MUPIROCIN 2% TOPICAL OINTMENT FOR DECOLONIZATION NS SCH ×2 (12:23→22:10)
[2018-02-22] MEDS: NADOLOL 20 MG TABLET (FP) PO SCH (12:24)
[2018-02-22] MEDS: COLLAGENASE CLOSTRIDIUM HIST. 30 GRAMS TUBE TP SCH ×2 (12:25→17:25)
[2018-02-22] MEDS: POLYETHYLENE GLYCOL 3350 119 GM BTL PO SCH (12:45)
--- NOTE | 2018-02-22 13:02 | PN ---
Teaching Attending Note Name of Resident: Katlin Smith ATTENDING PHYSICIAN STATEMENT I saw and evaluated the patient. I reviewed the resident's note and discussed the case with the resident. I agree with the resident's findings and plan as documented. SUBJECTIVE: Pt seen and examined in the ICU. c/o chest pain this AM, troponins rising. Pain described as sharp in nature, nonradiating. No shortness of breath, nausea or diaphoresis. Transfused FFP, platelets yesterday, started on octreotide gtt. Blood cultures growing gram positive cocci. OBJECTIVE: Vital Signs Period Temp Pulse Resp BP Sys/Ferrell Pulse Ox Last 24 Hr 98.3 F-99.8 F 56-88 18-22 69-94/37-66 97-97 Intake & Output 02/19/18 02/20/18 02/21/18 02/22/18 23:59 23:59 23:59 23:59 Intake Total 1550 2700 1396 Output Total 400 1800 600 Balance -400 1550 900 796 Weight 117.027 kg 117.118 kg Gen: tachypneic at rest Heart: RRR Lung: decreased breath sounds at the bases Abd: softly distended, +ascites Ext: + edema CBC, BMP 02/22/18 05:30 CMP Sodium 135 mmol/L (136-145) L 02/22/18 05:30 Potassium 5.2 mmol/L (3.5-5.1) H 02/22/18 05:30 Chloride 104 mmol/L (98-107) 02/22/18 05:30 Carbon Dioxide 18 mmol/L (21-32) L 02/22/18 05:30 Anion Gap 13 MMOL/L (8-16) 02/22/18 05:30 BUN 59 mg/dL (7-18) H 02/22/18 05:30 Creatinine 2.4 mg/dL (0.55-1.3) H 02/22/18 05:30 Creat Clearance w eGFR 27.75 (>60) 02/22/18 05:30 POC Glucometer 229.26741 UNITS (80-120) 02/22/18 12:39 Random Glucose 168 mg/dL (74-106) H 02/22/18 05:30 Lactic Acid 1.7 mmol/L (0.4-2.0) 02/21/18 18:50 Calcium 8.2 mg/dL (8.5-10.1) L 02/22/18 05:30 Phosphorus 4.5 mg/dL (2.5-4.9) 02/22/18 05:30 Magnesium 2.2 mg/dL (1.8-2.4) 02/22/18 05:30 Iron 66 ug/dL (38-169) 02/21/18 07:10 TIBC 158 ug/dL (250-450) L 02/21/18 07:10 Iron Saturation 42 % (15-55) 02/21/18 07:10 Ferritin 175.7 ng/ml (8-388) 02/21/18 07:10 Total Bilirubin 3.8 mg/dL (0.2-1) H 02/17/18 16:30 AST 43 U/L (15-37) H 02/17/18 16:30 ALT 23 U/L (13-61) 02/17/18 16:30 Alkaline Phosphatase 222 U/L (45-117) H 02/17/18 16:30 Ammonia 68.70 umol/L (11-32) H 02/18/18 06:40 LD Total 310 U/L (87-246) H 02/22/18 05:30 Creatine Kinase 935 IU/L (26-308) H 02/22/18 05:30 Creatine Kinase Index 3.4 % (0.0-5.0) 02/22/18 05:30 CK-MB (CK-2) 32.5 ng/mL (0.5-3.6) H 02/22/18 05:30 Troponin I 19.60 ng/ml (0.00-0.05) H* 02/22/18 05:30 C-Reactive Protein 16.9 MG/DL (0.00-0.3) H 02/19/18 07:00 Total Protein 7.6 g/dl (6.4-8.2) 02/17/18 16:30 Albumin 2.0 g/dl (3.4-5.0) L 02/17/18 16:30 Vitamin B12 1898 pg/ml (193-986) H 02/21/18 07:10 TSH 0.27 uIU/ml (0.358-3.74) L D 02/21/18 07:10 Free T4 1.37 ng/dl (0.76-1.16) H 02/21/18 07:10 Active Medications Albumin Human (Albumin Human 25% -) 25 gm IVPB Q6H [facility] Stop: 02/23/18 07:31 Aspirin (Asa -) 81 mg PO DAILY [facility] Last Admin: 02/22/18 10:59 Dose: 81 mg Atorvastatin Calcium (Lipitor -) 80 mg PO HS [facility] Last Admin: 02/21/18 21:54 Dose: 80 mg Chlorhexidine Gluconate (Hibiclens For Decolonization -) 1 applic TP HS [facility] Last Admin: 02/21/18 21:54 Dose: 1 applic Collagenase (Santyl -) 1 applic TP DAILY [facility]; Protocol Last Admin: 02/22/18 12:25 Dose: Not Given Octreotide Acetate 1,200 mcg/ (Dextrose) 500 mls @ 20.83 mls/hr IVPB ASDIR [facility] ; Protocol Last Admin: 02/21/18 20:35 Dose: 20.83 mls/hr Cefepime HCl 1 gm/ Dextrose 100 mls @ 100 mls/hr IVPB Q12H [facility]; Protocol Last Admin: 02/22/18 12:22 Dose: 100 mls/hr Insulin Aspart (Novolog Vial Sliding Scale -) 1 vial SQ ACHS [facility]; Protocol Last Admin: 02/22/18 12:42 Dose: 3 unit Insulin Detemir (Levemir Vial) 10 units SQ HS [facility] Last Admin: 02/21/18 22:16 Dose: 10 units Lactulose (Cephulac (Oral Use)) 20 gm PO TID [facility] Last Admin: 02/22/18 06:11 Dose: 20 gm Lidocaine (Lidoderm Patch -) 1 patch TP DAILY [facility] Last Admin: 02/22/18 10:46 Dose: Not Given Midodrine (Proamatine -) 2.5 mg PO TID-MID [facility] Miscellaneous (Lidoderm Patch Removal) 1 each MC DAILY@2200 [facility] Multivitamins/Minerals/Vitamin C (Tab-A-Vit -) 1 tab PO DAILY [facility] Last Admin: 02/22/18 10:59 Dose: 1 tab Mupirocin (Bactroban Ointment (For Decolonization) -) 1 applic NS BID [facility] Stop: 02/26/18 21:59 Last Admin: 02/22/18 12:23 Dose: 1 applic Nadolol (Corgard -) 20 mg PO DAILY [facility] Last Admin: 02/22/18 12:24 Dose: Not Given Pantoprazole Sodium (Protonix Iv) 40 mg IVPUSH DAILY [facility] Last Admin: 02/22/18 10:58 Dose: 40 mg Polyethylene Glycol (Miralax (For Daily Use) -) 17 gm PO DAILY [facility] Last Admin: 02/22/18 12:45 Dose: 17 gm Ranolazine (Ranexa -) 1,000 mg PO BID [facility] Last Admin: 02/22/18 11:00 Dose: 1,000 mg Rifaximin (Xifaxan -) 550 mg PO BID [facility] Last Admin: 02/22/18 10:59 Dose: 550 mg Senna (Senna -) 1 tab PO HS [facility] Last Admin: 02/21/18 21:55 Dose: 1 tab ASSESSMENT AND PLAN: Gram Positive Bacteremia Sepsis Acute Kidney Injury - r/o Hepato-Renal Syndrome Thrombocytopenia Coagulopathy Liver Cirrhosis Ascites s/p Large Volume Paracentesis r/o GI Bleed h/o Esophageal Varices HCC s/p TACE Acute NSTEMI CAD HTN - continue antibiotics - f/u cultures - hold diuretics - on albumin - monitor urine output, creatinine - midodrine per renal - trend cardiac enzymes - repeat echocardiogram to assess wall motion abnormalities and to r/o endocarditis - monitor CBC, coags - transfuse as needed - continue protonix, octreotide - NPO - would transfer to [facility] for further treatment - prognosis guarded critical care time spent in reviewing chart, evaluating patient and formulating plan 35 min
[2018-02-22] MEDS ORDERED: VANCOMYCIN 1 GRAM (PRE-DOCKED) 1,000 MG/250 ML BAG IVPB ONE (13:30)
[2018-02-22 13:32] LABS: ALBUMIN 2.7 g/dl (3.4-5.0); ALK PHOS 158 U/L (45-117); ANION GAP 9 MMOL/L (8-16); BILIRUBIN,TOTAL 4.8 mg/dL (0.2-1); BLOOD UREA NITROGEN 64 mg/dL (7-18); CALCIUM 7.8 mg/dL (8.5-10.1); CHLORIDE 103 mmol/L (98-107); CO2 19 mmol/L (21-32); CREATININE 2.7 mg/dL (0.55-1.3); GLUCOSE,RANDOM 192 mg/dL (74-106); POTASSIUM 5.5 mmol/L (3.5-5.1); SGOT/AST 141 U/L (15-37); SGPT/ALT 31 U/L (13-61); SODIUM 130 mmol/L (136-145); TOT PROT 6.9 g/dl (6.4-8.2)
[2018-02-22] MEDS: ALBUMIN HUMAN 25% 100 ML VIAL IVPB SCH ×2 (14:01→20:12)
[2018-02-22] MEDS ORDERED: SODIUM POLYSTYRENE SULFONATE 15 GM/60 ML BOTTLE PO ONE (14:12)
--- NOTE | 2018-02-22 14:18 | PN ---
Physical Exam: SUBJECTIVE: - Transfer to ICU from floor for hypotension to 60's, NSTEMI - GI consulted - started on octreotide drip, albumin for fluid resuscitation, transfused platelets and FFP - Troponin initially decreased from 15.7 to 13.9, but increased this AM to 19.6 - Blood cultures x2 positive for gram positive cocci in clusters - Recurrence of sharp chest pain this morning, morphine given for pain - [facility] contacted for transfer to tertiary care center as Mr Schaeffer is already followed there OBJECTIVE: Vital Signs Period Temp Pulse Resp BP Sys/Ferrell Pulse Ox Last 24 Hr 98.3 F-98.9 F 56-88 18-22 69-94/37-66 97-97 General: Comfortable HEENT: PERRL, EOMI, voice normal Cards: RRR, no murmur appreciated Pulm: Slightly tachypnic. No wheezing or crackles noted. Abd: Soft, mildly distended. Diffuse mild TTP Ext: BLE 1+ pitting edema. L foot with clean dressing in place Neuro: Alert, responsive Psych: Mood appropriate to situation Laboratory Results - last 24 hr 02/20/18 02/21/18 02/21/18 09:15 07:10 13:05 WBC RBC Hgb Hct MCV MCH MCHC RDW Plt Count MPV Retic Count PT with INR INR PTT (Actin FS) Sodium Potassium Chloride Carbon Dioxide Anion Gap BUN Creatinine Creat Clearance w eGFR POC Glucometer Random Glucose Lactic Acid Calcium Phosphorus Magnesium Iron 66 TIBC 158 L Iron Saturation 42 Total Bilirubin AST ALT Alkaline Phosphatase LD Total Creatine Kinase Creatine Kinase Index 2.9 CK-MB (CK-2) 25.8 H Troponin I Total Protein Albumin Urine Color Urine Appearance Urine pH Ur Specific Harper Urine Protein Urine Glucose (UA) Urine Ketones Urine Blood Urine Nitrite Urine Bilirubin Urine Urobilinogen Ur Leukocyte Esterase Random Vancomycin Crossmatch See Detail 02/21/18 02/21/18 02/21/18 16:57 17:39 18:00 WBC RBC Hgb Hct MCV MCH MCHC RDW Plt Count MPV Retic Count PT with INR INR PTT (Actin FS) Sodium Potassium Chloride Carbon Dioxide Anion Gap BUN Creatinine Creat Clearance w eGFR POC Glucometer 159 Random Glucose Lactic Acid Calcium Phosphorus Magnesium Iron TIBC Iron Saturation Total Bilirubin AST ALT Alkaline Phosphatase LD Total Creatine Kinase Creatine Kinase Index CK-MB (CK-2) Troponin I 13.90 H* Total Protein Albumin Urine Color Kaley Urine Appearance Slcloudy Urine pH 5.0 Ur Specific Harper 1.016 Urine Protein Negative Urine Glucose (UA) Negative Urine Ketones Negative Urine Blood Negative Urine Nitrite Negative Urine Bilirubin Negative Urine Urobilinogen 4.0 e.u/dl Ur Leukocyte Esterase Negative Random Vancomycin Crossmatch 02/21/18 02/21/18 02/21/18 18:00 18:50 21:54 WBC 17.7 H RBC 2.88 L Hgb 8.6 L Hct 25.8 L MCV 89.7 MCH 29.8 MCHC 33.2 RDW 20.7 H Plt Count 113 L MPV 7.9 Retic Count PT with INR INR PTT (Actin FS) Sodium Potassium Chloride Carbon Dioxide Anion Gap BUN Creatinine Creat Clearance w eGFR POC Glucometer [phone] Random Glucose Lactic Acid 1.7 Calcium Phosphorus Magnesium Iron TIBC Iron Saturation Total Bilirubin AST ALT Alkaline Phosphatase LD Total Creatine Kinase Creatine Kinase Index CK-MB (CK-2) Troponin I Total Protein Albumin Urine Color Urine Appearance Urine pH Ur Specific [place] Urine Protein Urine Glucose (UA) Urine Ketones Urine Blood Urine Nitrite Urine Bilirubin Urine Urobilinogen Ur Leukocyte Esterase Random Vancomycin Crossmatch 02/22/18 02/22/18 02/22/18 05:30 05:30 05:30 WBC RBC Hgb Hct MCV MCH MCHC RDW Plt Count MPV Retic Count 4.65 H D PT with INR INR PTT (Actin FS) Sodium 135 L Potassium 5.2 H Chloride 104 Carbon Dioxide 18 L Anion Gap 13 BUN 59 H Creatinine 2.4 H Creat Clearance w eGFR 27.75 POC Glucometer Random Glucose 168 H Lactic Acid Calcium 8.2 L Phosphorus 4.5 Magnesium 2.2 Iron TIBC Iron Saturation Total Bilirubin AST ALT Alkaline Phosphatase LD Total 310 H Creatine Kinase 935 H Creatine Kinase Index 3.4 CK-MB (CK-2) 32.5 H Troponin I 19.60 H* Total Protein Albumin Urine Color Urine Appearance Urine pH Ur Specific Harper Urine Protein Urine Glucose (UA) Urine Ketones Urine Blood Urine Nitrite Urine Bilirubin Urine Urobilinogen Ur Leukocyte Esterase Random Vancomycin 16.5 L Crossmatch 02/22/18 02/22/18 02/22/18 05:30 05:30 05:41 WBC 17.0 H RBC 2.68 L Hgb 8.0 L Hct 24.3 L MCV 90.8 MCH 29.7 MCHC 32.7 RDW 20.5 H Plt Count 109 L MPV 7.9 Retic Count PT with INR 17.90 H INR 1.51 H PTT (Actin FS) 40.6 H Sodium Potassium Chloride Carbon Dioxide Anion Gap BUN Creatinine Creat Clearance w eGFR POC Glucometer 210.59316 Random Glucose Lactic Acid Calcium Phosphorus Magnesium Iron TIBC Iron Saturation Total Bilirubin AST ALT Alkaline Phosphatase LD Total Creatine Kinase Creatine Kinase Index CK-MB (CK-2) Troponin I Total Protein Albumin Urine Color Urine Appearance Urine pH Ur Specific [place] Urine Protein Urine Glucose (UA) Urine Ketones Urine Blood Urine Nitrite Urine Bilirubin Urine Urobilinogen Ur Leukocyte Esterase Random Vancomycin Crossmatch 02/22/18 02/22/18 12:30 12:39 WBC RBC Hgb Hct MCV MCH MCHC RDW Plt Count MPV Retic Count PT with INR INR PTT (Actin FS) Sodium 130 L Potassium 5.5 H Chloride 103 Carbon Dioxide 19 L Anion Gap 9 BUN 64 H Creatinine 2.7 H Creat Clearance w eGFR 24.23 POC Glucometer [phone] Random Glucose 192 H Lactic Acid Calcium 7.8 L Phosphorus Magnesium Iron TIBC Iron Saturation Total Bilirubin 4.8 H AST 141 H ALT 31 Alkaline Phosphatase 158 H LD Total Creatine Kinase Creatine Kinase Index CK-MB (CK-2) Troponin I Total Protein 6.9 Albumin 2.7 L Urine Color Urine Appearance Urine pH Ur Specific Harper Urine Protein Urine Glucose (UA) Urine Ketones Urine Blood Urine Nitrite Urine Bilirubin Urine Urobilinogen Ur Leukocyte Esterase Random Vancomycin Crossmatch Active Medications Generic Name Dose Route Start Last Admin Trade Name Freq PRN Reason Stop Dose Admin Albumin Human 25 gm 02/22/18 13:30 02/22/18 14:01 Albumin Human 25% - IVPB 02/23/18 07:31 25 gm Q6H J CARLOS Administration Aspirin 81 mg 02/18/18 10:00 02/22/18 10:59 Asa - PO 81 mg DAILY J CARLOS Administration Atorvastatin Calcium 80 mg 02/21/18 22:00 02/21/18 21:54 Lipitor - PO 80 mg HS J CARLOS Administration Chlorhexidine Gluconate 1 applic 02/21/18 22:00 02/21/18 21:54 Hibiclens For Decolonization - TP 1 applic HS J CARLOS Administration Collagenase 1 applic 02/18/18 10:00 02/22/18 12:25 Santyl - TP Not Given DAILY J CARLOS Protocol Octreotide Acetate 1,200 mcg/ 500 mls @ 20.83 mls/hr 02/21/18 19:45 02/21/18 20:35 Dextrose IVPB 20.83 mls/hr ASDIR J CARLOS Administration Protocol 50 MCG/HR Cefepime HCl 1 gm/ Dextrose 100 mls @ 100 mls/hr 02/21/18 20:17 02/22/18 12: 22 IVPB 100 mls/hr Q12H J CARLOS Administration Protocol Vancomycin HCl 1,000 mg in 250 mls @ 166.667 mls/hr 02/22/18 13:30 02/22/18 13:46 Vancomycin (Pre-Docked) IVPB 02/22/18 14:59 166.667 mls/hr ONCE ONE Administration Protocol Insulin Aspart 1 vial 02/21/18 16:30 02/22/18 12:42 Novolog Vial Sliding Scale - SQ 3 unit ACHS J CARLOS Administration Protocol Insulin Detemir 10 units 02/17/18 22:00 02/21/18 22:16 Levemir Vial SQ 10 units HS J CARLOS Administration Lactulose 20 gm 02/17/18 22:00 02/22/18 13:46 Cephulac (Oral Use) PO 20 gm TID J CARLOS Administration Lidocaine 1 patch 02/22/18 10:00 02/22/18 10:46 Lidoderm Patch - TP Not Given DAILY J CARLOS Midodrine 2.5 mg 02/22/18 14:00 Proamatine - PO TID-MID J CARLOS Miscellaneous 1 each 02/22/18 22:00 Lidoderm Patch Removal MC DAILY@2200 J CARLOS Multivitamins/Minerals/Vitamin C 1 tab 02/18/18 10:00 02/22/18 10:59 Tab-A-Vit - PO 1 tab DAILY J CARLOS Administration Mupirocin 1 applic 02/21/18 22:00 02/22/18 12:23 Bactroban Ointment (For Decolonization) - NS 02/26/18 21:59 1 applic BID J CARLOS Administration Nadolol 20 mg 02/18/18 10:00 02/22/18 12:24 Corgard - PO Not Given DAILY J CARLOS Pantoprazole Sodium 40 mg 02/22/18 10:00 02/22/18 10:58 Protonix Iv IVPUSH 40 mg DAILY J CARLOS Administration Polyethylene Glycol 17 gm 02/21/18 10:00 10/10/18 12:45 Miralax (For Daily Use) - PO 17 gm DAILY J CARLOS Administration Ranolazine 1,000 mg 02/17/18 22:00 02/22/18 11:00 Ranexa - PO 1,000 mg BID J CARLOS Administration Rifaximin 550 mg 02/17/18 22:00 02/22/18 10:59 Xifaxan - PO 550 mg BID J CARLOS Administration Senna 1 tab 02/21/18 22:00 02/21/18 21:55 Senna - PO 1 tab HS J CARLOS Administration Sodium Polystyrene Sulfonate 30 gm 02/22/18 14:12 Kayexalate - PO 02/22/18 14:13 ONCE ONE ASSESSMENT/PLAN: Logan Schaeffer is a 58yo man with a PMH of HTN, HLD, CAD, chronic anemia, HERNANDEZ , HDCC, ascites, esophageal varicies, IDDM, PVD, diabetic foot ulcers who was transferred to the ICU yesterday with an NSTEMI and hypotension to the 60's following paracentesis with 9L removed. He continues to be hypotensive and has rising troponins today. Transfer to a tertiary care center where Mr Schaeffer follows for his liver conditions is underway. Neuro: - Complaining of increased sharp chest pain. Morphine given for pain control. CV: - NSTEMI yesterday, possibly due to demand ischemia with hypotension to the 60's. - Troponin initially 15.7, decreased to 13.9 but repeat trop increased to 19.6 - h/o HTN, HLD, CAD - Continue home ASA, statin, ranolazine. No heparin due to guaiac positive stool - Holding home lisinopril, lasix, spironolactone in the setting of hypotension - Hypotension continues to be in 60's-80's, most likely due to large volume paracentesis and intravascular volume depletion. - Albumin 25% q6hr for fluid resuscitation. - Midodrine started for continue hypotension - Repeat echo ordered Pulm: - h/o orthopnea, dyspnea - Supplemental O2 to keep sats over 90 - IS 10x per hour Heme: - Chronic anemia - Repeat CBC in evening yesterday stable - Monitor daily CBC GI: - h/o HCC, HERNANDEZ, ascites, esophageal varicies - NPO - Dr Wilson consulted for +guaiac stool. - Likely no active GI bleed - Recommended FFP, platelets. Albumin for intravasc volume repletion. - Octreotide drip started per GI due to known varicies and to constrict mesenteric abd vessels given the possibility of small post-paracentesis bleed - Continue lactulose, rifamixin, natolol, pantoprazole - Encourage use of lactulose, miralax, senna - had BM today but not previously during this admission Renal: - Holding diuretics and lisinopril due to hypotension - Nephrology following. Agrees with albumin. - Midodrine for hypotension per nephrology - Potassium increased to 5.2 this morning, now 5.5. Giving kayexalate. Will recheck lytes in evening. - Monitor lytes, kidney function ID: - Blood and urine cultures sent yesterday - BCx both positive for gram positive cocci in clusters - Has been afebrile - ID following - started on emperic vancomycin and cefepime Endo: - IDDM - Continue insulin Musc: - Fall precautions PPx: - Holding heparin due to guaiac positive stool; no LE compression due to PVD - Pantoprazole FEN: - NPO - Albumin 25% Q6hr - Replete lytes PRN Dispo: - Monitor in ICU. Transfer to [facility] started. Discussed with Dr Nicholson and ICU team. Katlin Smith PGY1 Visit type - Emergency Visit Emergency Visit: No - New Patient This patient is new to me today: No - Critical Care Critical Care patient: Yes Total Critical Care Time (in minutes): 45 Critical Care Statement: The care of this patient involved high complexity decision making to prevent further life threatening deterioration of the patient 's condition and/or to evaluate & treat vital organ system(s) failure or risk of failure.
--- NOTE | 2018-02-22 17:10 | ECHO ---
Version: 1 Name: JAYSON STRAUSS Exam: Adult Echocardiogram Study Date: 02/22/2018, 3:10 PM Age: 58 Years MMode/2D Measurements & Calculations IVSd: 0.96 cm LVIDs: 3.6 cm LVIDd: 5.6 cm LVPWd: 0.95 cm LVOT diam: 2.10 cm Ao root diam: 3.3 cm LA dimension: 4.9 cm Doppler Measurements & Calculations MV E max jorge luis: 108.0 cm/sec Med E/e': 16.3 MV A max jorge luis: 78.6 cm/sec Med Peak E' Jorge Luis: 6.6 cm/sec MV E/A: 1.37 Lat E/e': 16.5 Lat Peak E' Jorge Luis: 6.5 cm/sec TR max jorge luis: 313.5 cm/sec TR max P.4 mmHg Procedure A two-dimensional transthoracic echocardiogram with color flow and Doppler was performed. The study was technically difficult with many images being suboptimal in quality. Left Ventricle The left ventricular size, thickness and function are normal. The left ventricular ejection fraction is normal. Regional wall motion abnormalities cannot be excluded due to limited visualization. Right Ventricle The right ventricle is not well visualized. Atria The left atrium is moderately dilated. The right atrium is moderately dilated. Mitral Valve There is moderate mitral valve thickening. There is no mitral valve stenosis. There is mild mitral regurgitation. Tricuspid Valve There is moderate tricuspid valve thickening. There is no tricuspid stenosis. Right ventricular syst olic pressure is elevated at 40-50mmHg. There is moderate tricuspid regurgitation. Aortic Valve The aortic valve is not well visualized. No hemodynamically significant valvular aortic stenosis. No aortic regurgitation is present. Pulmonic Valve The pulmonic valve is not well visualized. Great Vessels The aortic root is normal size. Pericardium/Pleura There is no pericardial effusion. Summary Statements The study was technically difficult with many images being suboptimal in quality. The left ventricular size, thickness and function are normal The left ventricular ejection fraction is normal. Regional wall motion abnormalities cannot be excluded due to limited visualization. The left atrium is moderately dilated. The right atrium is moderately dilated. There is moderate mitral valve thickening. There is mild mitral regurgitation. Right ventricular systolic pressure is elevated at 40-50mmHg. There is moderate tricuspid regurgitation. MD Rob Patel 02/22/2018, 5:09 PM Ordering Physician: CARIDAD GAN Performed By: Shivani Maloney
--- NOTE | 2018-02-22 17:23 | PN ---
Teaching Attending Note Name of Resident: Shahid Mcneill ATTENDING PHYSICIAN STATEMENT I saw and evaluated the patient. I reviewed the resident's note and discussed the case with the resident. I agree with the resident's findings and plan as documented. SUBJECTIVE:Patient seen and examined Transferred to ICU after he developed chest pain and troponins. History of advanced liver disease with portal hypertension, hypersplenism, anemia, thrombocytopenia. Patient is s/p paracentesis of high volume fluid. Developed chest pain and troponins post procedure. To be transferred to [facility]. INR--1.51, platelets 109K hct -24%. Anemia likely multifactorial with liver disease, hypersplenism, blood letting , Fe++-66, TIBC-158 and elevated ferritin compatible with chronic disease. No intervention at this time. OBJECTIVE: ASSESSMENT AND PLAN:
[2018-02-22] MEDS: MIDODRINE HCL 2.5 MG TABLET PO SCH ×2 (17:24→17:25)
--- NOTE | 2018-02-22 17:24 | PN ---
Physical Exam: SUBJECTIVE: Patient seen and examined bedside. No chest pain. Lying comfortably , awaiting transfer. 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 foot Skin: No rashes, Integument intact Laboratory Results - last 24 hr 02/20/18 02/21/18 02/21/18 09:15 07:10 17:39 WBC RBC Hgb Hct MCV MCH MCHC RDW Plt Count MPV Retic Count PT with INR INR PTT (Actin FS) Sodium Potassium Chloride Carbon Dioxide Anion Gap BUN Creatinine Creat Clearance w eGFR POC Glucometer Random Glucose Lactic Acid Calcium Phosphorus Magnesium Iron 66 TIBC 158 L Iron Saturation 42 Total Bilirubin AST ALT Alkaline Phosphatase LD Total Creatine Kinase Creatine Kinase Index CK-MB (CK-2) Troponin I Total Protein Albumin Urine Color Kaley Urine Appearance Slcloudy Urine pH 5.0 Ur Specific [place] 1.016 Urine Protein Negative Urine Glucose (UA) Negative Urine Ketones Negative Urine Blood Negative Urine Nitrite Negative Urine Bilirubin Negative Urine Urobilinogen 4.0 e.u/dl Ur Leukocyte Esterase Negative Random Vancomycin Crossmatch See Detail 02/21/18 02/21/18 02/21/18 18:00 18:00 18:50 WBC 17.7 H RBC 2.88 L Hgb 8.6 L Hct 25.8 L MCV 89.7 MCH 29.8 MCHC 33.2 RDW 20.7 H Plt Count 113 L MPV 7.9 Retic Count PT with INR INR PTT (Actin FS) Sodium Potassium Chloride Carbon Dioxide Anion Gap BUN Creatinine Creat Clearance w eGFR POC Glucometer Random Glucose Lactic Acid 1.7 Calcium Phosphorus Magnesium Iron TIBC Iron Saturation Total Bilirubin AST ALT Alkaline Phosphatase LD Total Creatine Kinase Creatine Kinase Index CK-MB (CK-2) Troponin I 13.90 H* Total Protein Albumin Urine Color Urine Appearance Urine pH Ur Specific [place] Urine Protein Urine Glucose (UA) Urine Ketones Urine Blood Urine Nitrite Urine Bilirubin Urine Urobilinogen Ur Leukocyte Esterase Random Vancomycin Crossmatch 02/21/18 02/22/18 02/22/18 21:54 05:30 05:30 WBC RBC Hgb Hct MCV MCH MCHC RDW Plt Count MPV Retic Count 4.65 H D PT with INR INR PTT (Actin FS) Sodium Potassium Chloride Carbon Dioxide Anion Gap BUN Creatinine Creat Clearance w eGFR POC Glucometer 209.86249 Random Glucose Lactic Acid Calcium Phosphorus Magnesium Iron TIBC Iron Saturation Total Bilirubin AST ALT Alkaline Phosphatase LD Total Creatine Kinase Creatine Kinase Index CK-MB (CK-2) Troponin I Total Protein Albumin Urine Color Urine Appearance Urine pH Ur Specific [place] Urine Protein Urine Glucose (UA) Urine Ketones Urine Blood Urine Nitrite Urine Bilirubin Urine Urobilinogen Ur Leukocyte Esterase Random Vancomycin 16.5 L Crossmatch 02/22/18 02/22/18 02/22/18 05:30 05:30 05:30 WBC 17.0 H RBC 2.68 L Hgb 8.0 L Hct 24.3 L MCV 90.8 MCH 29.7 MCHC 32.7 RDW 20.5 H Plt Count 109 L MPV 7.9 Retic Count PT with INR 17.90 H INR 1.51 H PTT (Actin FS) 40.6 H Sodium 135 L Potassium 5.2 H Chloride 104 Carbon Dioxide 18 L Anion Gap 13 BUN 59 H Creatinine 2.4 H Creat Clearance w eGFR 27.75 POC Glucometer Random Glucose 168 H Lactic Acid Calcium 8.2 L Phosphorus 4.5 Magnesium 2.2 Iron TIBC Iron Saturation Total Bilirubin AST ALT Alkaline Phosphatase LD Total 310 H Creatine Kinase 935 H Creatine Kinase Index 3.4 CK-MB (CK-2) 32.5 H Troponin I 19.60 H* Total Protein Albumin Urine Color Urine Appearance Urine pH Ur Specific [place] Urine Protein Urine Glucose (UA) Urine Ketones Urine Blood Urine Nitrite Urine Bilirubin Urine Urobilinogen Ur Leukocyte Esterase Random Vancomycin Crossmatch 02/22/18 02/22/18 02/22/18 05:41 12:30 12:39 WBC RBC Hgb Hct MCV MCH MCHC RDW Plt Count MPV Retic Count PT with INR INR PTT (Actin FS) Sodium 130 L Potassium 5.5 H Chloride 103 Carbon Dioxide 19 L Anion Gap 9 BUN 64 H Creatinine 2.7 H Creat Clearance w eGFR 24.23 POC Glucometer 210.74666 229.40314 Random Glucose 192 H Lactic Acid Calcium 7.8 L Phosphorus Magnesium Iron TIBC Iron Saturation Total Bilirubin 4.8 H AST 141 H ALT 31 Alkaline Phosphatase 158 H LD Total Creatine Kinase 819 H Creatine Kinase Index 4.3 CK-MB (CK-2) 35.7 H Troponin I 20.00 H* Total Protein 6.9 Albumin 2.7 L Urine Color Urine Appearance Urine pH Ur Specific [place] Urine Protein Urine Glucose (UA) Urine Ketones Urine Blood Urine Nitrite Urine Bilirubin Urine Urobilinogen Ur Leukocyte Esterase Random Vancomycin Crossmatch Active Medications Generic Name Dose Route Start Last Admin Trade Name Freq PRN Reason Stop Dose Admin Albumin Human 25 gm 02/22/18 13:30 02/22/18 14:01 Albumin Human 25% - IVPB 02/23/18 07:31 25 gm Q6H J CARLOS Administration Aspirin 81 mg 02/18/18 10:00 02/22/18 10:59 Asa - PO 81 mg DAILY J CARLOS Administration Atorvastatin Calcium 80 mg 02/21/18 22:00 02/21/18 21:54 Lipitor - PO 80 mg HS J CARLOS Administration Chlorhexidine Gluconate 1 applic 02/21/18 22:00 02/21/18 21:54 Hibiclens For Decolonization - TP 1 applic HS J CARLOS Administration Collagenase 1 applic 02/18/18 10:00 02/22/18 12:25 Santyl - TP Not Given DAILY J CARLOS Protocol Octreotide Acetate 1,200 mcg/ 500 mls @ 20.83 mls/hr 02/21/18 19:45 02/21/18 20:35 Dextrose IVPB 20.83 mls/hr ASDIR J CARLOS Administration Protocol 50 MCG/HR Cefepime HCl 1 gm/ Dextrose 100 mls @ 100 mls/hr 02/21/18 20:17 02/22/18 12: 22 IVPB 100 mls/hr Q12H J CARLOS Administration Protocol Insulin Aspart 1 vial 02/21/18 16:30 02/22/18 12:42 Novolog Vial Sliding Scale - SQ 3 unit ACHS J CARLOS Administration Protocol Insulin Detemir 10 units 02/17/18 22:00 02/21/18 22:16 Levemir Vial SQ 10 units HS J CARLOS Administration Lactulose 20 gm 02/17/18 22:00 02/22/18 13:46 Cephulac (Oral Use) PO 20 gm TID J CARLOS Administration Lidocaine 1 patch 02/22/18 10:00 02/22/18 10:46 Lidoderm Patch - TP Not Given DAILY J CARLSO Midodrine 2.5 mg 02/22/18 14:00 Proamatine - PO TID-MID J CARLOS Miscellaneous 1 each 02/22/18 22:00 Lidoderm Patch Removal MC DAILY@2200 [facility] Multivitamins/Minerals/Vitamin C 1 tab 02/18/18 10:00 02/22/18 10:59 Tab-A-Vit - PO 1 tab DAILY J CARLOS Administration Mupirocin 1 applic 02/21/18 22:00 02/22/18 12:23 Bactroban Ointment (For Decolonization) - NS 02/26/18 21:59 1 applic BID J CARLOS Administration Nadolol 20 mg 02/18/18 10:00 02/22/18 12:24 Corgard - PO Not Given DAILY J CARLOS Pantoprazole Sodium 40 mg 02/22/18 10:00 02/22/18 10:58 Protonix Iv IVPUSH 40 mg DAILY J CARLOS Administration Polyethylene Glycol 17 gm 02/21/18 10:00 02/22/18 12:45 Miralax (For Daily Use) - PO 17 gm DAILY J CARLOS Administration Ranolazine 1,000 mg 02/17/18 22:00 02/22/18 11:00 Ranexa - PO 1,000 mg BID J CARLOS Administration Rifaximin 550 mg 02/17/18 22:00 02/22/18 10:59 Xifaxan - PO 550 mg BID J CARLOS Administration Senna 1 tab 02/21/18 22:00 02/21/18 21:55 Senna - PO 1 tab HS J CARLOS Administration ASSESSMENT/PLAN: Problem List - Problems (1) Anemia requiring transfusions Assessment/Plan: Anemia is multifactorial given CKD and Anemia of chronic disease. * Awaiting transfer to [facility] for hepatology service f/u/ * INR--1.51, platelets 109K hct -24%. * anemia most likely secondary to advanced Liver disease * normal transfusion thresholds. (2) Diabetic foot ulcer associated with type 2 diabetes mellitus Assessment/Plan: He was scheduled for procedure today but deferred given clinical course. * Awaiting transfer to [facility] for further management. (3) PVD (peripheral vascular disease) Assessment/Plan: Aspirin (Asa -) 81 mg PO DAILY Atorvastatin Calcium (Lipitor -) 10 mg PO HS (4) Type 2 diabetes mellitus Assessment/Plan: with circulatory complications * ADA diet * BGM ACHS * ISS ACHS (5) Ascites due to alcoholic cirrhosis Assessment/Plan: s/p 9L of fluid removed 02/20/18 * He subsequently developed CP and had rise in troponins. * Transferred to ICU for further management. * Awaiting transfer to [facility] to Hepatology service. (6) CKD (chronic kidney disease) (7) Hepatocellular carcinoma Assessment/Plan: Will need follow up with residence hall director at [facility] (8) 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 Visit type - Emergency Visit Emergency Visit: Yes ED Registration Date: 02/17/18 Care time: The patient presented to the Emergency Department on the above date and was hospitalized for further evaluation of their emergent condition. - New Patient This patient is new to me today: No - Critical Care Critical Care patient: Yes Total Critical Care Time (in minutes): 47 Critical Care Statement: The care of this patient involved high complexity decision making to prevent further life threatening deterioration of the patient 's condition and/or to evaluate & treat vital organ system(s) failure or risk of failure.
[2018-02-22] MEDS: OCTREOTIDE ACETATE 1,200 MCG in DEXTROSE 5%-WATER - 488 ML IVPB SCH (20:35)
[2018-02-22 20:46] LABS: ALBUMIN 2.9 g/dl (3.4-5.0); ALK PHOS 164 U/L (45-117); ANION GAP 7 MMOL/L (8-16); BILIRUBIN,TOTAL 5.3 mg/dL (0.2-1); BLOOD UREA NITROGEN 65 mg/dL (7-18); CHLORIDE 105 mmol/L (98-107); CO2 17 mmol/L (21-32); CREATININE 2.9 mg/dL (0.55-1.3); GLUCOSE,RANDOM 183 mg/dL (74-106); POTASSIUM 5.6 mmol/L (3.5-5.1); SGOT/AST 150 U/L (15-37); SGPT/ALT 31 U/L (13-61); SODIUM 129 mmol/L (136-145); TOT PROT 7.2 g/dl (6.4-8.2)
[2018-02-22] MEDS: ATORVASTATIN CA 80 MG TABLET (FP) PO SCH (22:11)
[2018-02-22] MEDS: CHLORHEXIDINE GLUCONATE 4% CLEANSER FOR DECOLONIZATION TP SCH (22:11)
[2018-02-22] MEDS: SENNOSIDES 8.6MG TABLET (FP) PO SCH (22:11)
[2018-02-22] MEDS ORDERED: ALBUMIN HUMAN 25% 100 ML VIAL IVPB ONE (22:35)
[2018-02-22] MEDS ORDERED: NOREPINEPHRINE BITARTRATE 4 MG/4 ML ML IV ONE (22:51)
--- NOTE | 2018-02-22 23:05 | RAPID ---
Physical Examination Vital Signs: Vital Signs Initial BP 175/85 HR 113 100% RA Eyes: Yes: PERRL Labs: CBC, BMP 02/22/18 05:30 02/22/18 19:30 Rapid Response - Rapid Response Assessment: Code called in ICU 6. CPR was started. Pt was intubated. Femoral line was placed. Pt was given atropine and epinephrine. ROSC was achieved. See Code sheet for details. Critical Care Total Critical Care Time (in minutes): 45 Critical Care Statement: The care of this patient involved high complexity decision making to prevent further life threatening deterioration of the patient 's condition and/or to evaluate & treat vital organ system(s) failure or risk of failure.
--- NOTE | 2018-02-22 23:11 | PN ---
Progress Note (short form) - Note Progress Note: code 99 called at 1044, patient MAP 59, HR 34m, O2 sat 70's, no pulse PEA, Chest compressions and bagging initiated, patient received 1 atropine and 2 epis. Rosc was achieved at 10:46. patient was intubated, a R fem central line was placed and Levo gtt was started. vent settings 500/16/60%/5 Stat ekg shows new RBBB, new st depressions in v1-4, l axis, l ant fascicular block. labs, abg to follow. Spoke with Dr Wilson and Dr Dominique about the patients hypotension. It has been agreed that the best treatment is volume expansion with Albumin 24 q 4 hr x 4, then 25 q6 hr x 4, 1 u platelets, 2 u ffp. since patient already got 4 doses of albumin 12.5 today, will give another 4 or 12.[address] Wilson also recommended octreotide gtt and liver US to evaluate tumor size (s /p TACE) Dr Rendon would accept patient to [place] if condition worsens [phone] Problem List - Problems (1) Cardiac arrest Code(s): I46.9 - CARDIAC ARREST, CAUSE UNSPECIFIED
[2018-02-22] MEDS ORDERED: VASOPRESSIN 20 UNITS/ML VIAL IV ONE (23:22)
[2018-02-22] MEDS: MIDAZOLAM 100 MG in SODIUM CHLORIDE 100 ML IVPB SCH (23:45)
[2018-02-22] MEDS ORDERED: NOREPINEPHRINE BITARTRATE 8,000 MCG in DEXTROSE 5%-WATER - 492 ML IV SCH (23:45)
[2018-02-22] MEDS: DOPAMINE 400 MG/D5W - 400,000 MCG/250 ML INFUS.BAG IVPB SCH (23:45)
[2018-02-22 23:56] LABS: ARTERIAL BLD GAS O2 SATURATION 97.4 % (90-98.9); ARTERIAL BLOOD GAS BASE EXCESS -13.1 meq/l (-2-2)
[2018-02-23] LABS: VENOUS PC02 43.5 mmHg (38-52); VENOUS PO2 35.8 mmHg (28-48)
[2018-02-23 00:02] LABS: ARTERIAL BLOOD GAS pH 7.22 (7.35-7.45)
[2018-02-23 00:03] LABS: VENOUS PH 7.16 (7.32-7.42)
--- NOTE | 2018-02-23 00:05 | PROC ---
Central Line Insertion Indication: Vasopressor (Rapid response called by ICU team. Pt was bradycardic then went into PEA. code 99 called, CPR performed) Sterile Technique: Yes Ultrasound Guided Assistance: No Position: Right Femoral Post Insertion: Yes: Chest X-Ray Ordered Sterile Dressing Applied: Yes Remarks: Levophed started. ABG and VBG done. LR @ 125cc ordered. Will adjust vent settings accordingly. Family contacted and made aware of pt's clinical status.
[2018-02-23] MEDS ORDERED: LACTATED RINGERS SOLUTION 1,000 ML/1,000 ML INFUS.BAG IV SCH (00:15)
[2018-02-23] MEDS: ALBUMIN HUMAN 25% 100 ML VIAL IVPB SCH ×4 (01:03→12:41)
[2018-02-23] MEDS: LACTULOSE 20 GM/30 ML UDC (FOR ORAL USE ONLY) PO SCH ×5 (01:09→23:58)
[2018-02-23] MEDS ORDERED: DEXTROSE 50%-WATER 25 GM/50 ML DISP.SYRIN ONE (01:57)
[2018-02-23] MEDS ORDERED: DEXTROSE 50%-WATER - 25 GM/50 ML VIAL IVPUSH ONE (01:58)
[2018-02-23] MEDS ORDERED: CALCIUM GLUCONATE 10% - 1,000 MG/10 ML VIAL IVPUSH ONE (01:59)
[2018-02-23] MEDS ORDERED: INSULIN REGULAR HUMAN 100 UNITS/ML *VIAL IVPUSH ONE (01:59)
[2018-02-23] MEDS ORDERED: SODIUM BICARBONATE 8.4% 50 MEQ/50 ML VIAL ONE (01:59)
[2018-02-23 02:03] LABS: HEMATOCRIT 24.1 % (35.4-49); HEMOGLOBIN 7.8 GM/dL (11.7-16.9); MCH 29.8 pg (25.7-33.7); MCHC 32.1 g/dl (32.0-35.9); MEAN CELL VOLUME 92.6 fl (80-96); MEAN PLT VOLUME 8.3 fl (7.5-11.1); PLATELET COUNT 184 K/MM3 (134-434); RBC 2.61 M/mm3 (4.00-5.60); RDW 21.9 % (11.9-15.9); WHITE BLOOD COUNT 25.2 K/mm3 (4.0-10.0)
[2018-02-23] MEDS ORDERED: SODIUM BICARBONATE 8.4% 50 MEQ/50 ML DISP.SYRIN IVPUSH ONE ×2 (02:15→02:45)
[2018-02-23 02:30] LABS: ALBUMIN 3.4 g/dl (3.4-5.0); ALK PHOS 152 U/L (45-117); ANION GAP 12 MMOL/L (8-16); BILIRUBIN,TOTAL 5.4 mg/dL (0.2-1); BLOOD UREA NITROGEN 67 mg/dL (7-18); CALCIUM 7.8 mg/dL (8.5-10.1); CHLORIDE 101 mmol/L (98-107); CO2 16 mmol/L (21-32); CREATININE 3.4 mg/dL (0.55-1.3); GLUCOSE,RANDOM 261 mg/dL (74-106); MAGNESIUM 2.4 mg/dL (1.8-2.4); PHOSPHOROUS 7.1 mg/dL (2.5-4.9); SGOT/AST 249 U/L (15-37); SGPT/ALT 56 U/L (13-61); SODIUM 128 mmol/L (136-145); TOT PROT 7.2 g/dl (6.4-8.2)
[2018-02-23 02:35] LABS: POTASSIUM 6.2 mmol/L (3.5-5.1)
[2018-02-23] MEDS: LIDOCAINE PATCH REMOVAL MC SCH ×2 (04:04→22:18)
[2018-02-23] MEDS: RANOLAZINE E.R. 1,000 MG TABLET (FP) PO SCH ×3 (04:04→23:56)
[2018-02-23] MEDS: SENNOSIDES 8.6MG TABLET (FP) PO SCH ×3 (04:08→23:58)
[2018-02-23] MEDS: RIFAXIMIN 550 MG TABLET (UD) PO SCH ×4 (04:08→23:58)
[2018-02-23] MEDS ORDERED: NOREPINEPHRINE BITARTRATE 4 MG/4 ML ML IV ONE ×3 (05:25→14:17)
[2018-02-23 06:07] LABS: BASO % 0.2 % (0-2.0); HEMATOCRIT 23.9 % (35.4-49); HEMOGLOBIN 7.7 GM/dL (11.7-16.9); LYMPH % 2.1 % (8-40); MCH 29.3 pg (25.7-33.7); MCHC 32.2 g/dl (32.0-35.9); MEAN PLT VOLUME 8.4 fl (7.5-11.1); MONO % 5.7 % (3.8-10.2); PLATELET COUNT 157 K/MM3 (134-434); RBC 2.62 M/mm3 (4.00-5.60); RDW 20.4 % (11.9-15.9); WHITE BLOOD COUNT 25.7 K/mm3 (4.0-10.0)
[2018-02-23] MEDS: ATORVASTATIN CA 80 MG TABLET (FP) PO SCH ×3 (06:09→23:58)
[2018-02-23 06:32] LABS: ALBUMIN 3.5 g/dl (3.4-5.0); ALK PHOS 146 U/L (45-117); ANION GAP 16 MMOL/L (8-16); BILIRUBIN,TOTAL 5.3 mg/dL (0.2-1); BLOOD UREA NITROGEN 69 mg/dL (7-18); CALCIUM 7.7 mg/dL (8.5-10.1); CHLORIDE 99 mmol/L (98-107); CO2 14 mmol/L (21-32); CREATININE 3.5 mg/dL (0.55-1.3); MAGNESIUM 2.3 mg/dL (1.8-2.4); PHOSPHOROUS 6.7 mg/dL (2.5-4.9); POTASSIUM 5.7 mmol/L (3.5-5.1); SGOT/AST 415 U/L (15-37); SGPT/ALT 105 U/L (13-61); SODIUM 128 mmol/L (136-145); TOT PROT 7.1 g/dl (6.4-8.2)
[2018-02-23] MEDS ORDERED: PT OWN MED DRAWER 7, Y5N ONE ×3 (06:39→12:40)
[2018-02-23 06:41] LABS: ARTERIAL BLD GAS O2 SATURATION 96.4 % (90-98.9); ARTERIAL BLOOD GAS BASE EXCESS -13.5 meq/l (-2-2); ARTERIAL BLOOD GAS PO2 93.2 mmHg (80-100); ARTERIAL BLOOD GAS pH 7.28 (7.35-7.45)
[2018-02-23] MEDS: INSULIN (LEVEMIR) 100 UNITS/ML UNITS SQ SCH ×2 (06:43→23:55)
[2018-02-23] MEDS: INSULIN SLIDING SCALE (NOVOLOG) 1 VIAL SQ SCH ×5 (06:44→23:56)
[2018-02-23 06:49] LABS: GLUCOSE,RANDOM 304 mg/dL (74-106)
--- NOTE | 2018-02-23 08:40 | PN ---
Progress Note, Physician History of Present Illness: events noted transferred to icu--positive troponin and hypotension cardiac arrest --on vent - Current Medication List Current Medications: Active Medications Albumin Human (Albumin Human 25% -) 25 gm IVPB Q4H J CARLOS Stop: 02/23/18 11:46 Last Admin: 02/23/18 07:48 Dose: 25 gm Atorvastatin Calcium (Lipitor -) 80 mg PO HS J CARLOS Last Admin: 02/23/18 06:09 Dose: Not Given Chlorhexidine Gluconate (Hibiclens For Decolonization -) 1 applic TP HS J CARLOS Last Admin: 02/22/18 22:11 Dose: 1 applic Collagenase (Santyl -) 1 applic TP DAILY J CARLOS; Protocol Last Admin: 02/22/18 17:25 Dose: 1 applic Octreotide Acetate 1,200 mcg/ (Dextrose) 500 mls @ 20.83 mls/hr IVPB ASDIR J CARLOS ; Protocol Last Admin: 02/22/18 20:35 Dose: 20.83 mls/hr Cefepime HCl 1 gm/ Dextrose 100 mls @ 100 mls/hr IVPB Q12H J CARLOS; Protocol Last Admin: 02/22/18 22:10 Dose: 100 mls/hr Norepinephrine Bitartrate 8, (000 mcg/ Dextrose) 500 mls @ 18.75 mls/hr IV TITR J CARLOS; Protocol Last Admin: 02/22/18 23:15 Dose: 30 mcg/min, 112.5 mls/hr Dopamine HCl/Dextrose (Dopamine 400 Mg/D5w -) 400,000 mcg in 250 mls @ 21.96 mls/hr IVPB TITR J CARLOS; Protocol Last Admin: 02/22/18 23:45 Dose: 20 mcg/kg/min, 87.839 mls/hr Midazolam HCl 100 mg/ Sodium (Chloride) 100 mls @ 5 mls/hr IVPB TITR J CARLOS; Protocol Last Admin: 02/22/18 23:45 Dose: 5 mg/hr, 5 mls/hr Lactated Ringer's (Lactated Ringers Solution) 1,000 ml in 1,000 mls @ 125 mls/ hr IV ASDIR J CARLOS Last Admin: 02/23/18 01:18 Dose: 125 mls/hr Insulin Aspart (Novolog Vial Sliding Scale -) 1 vial SQ ACHS J CARLOS; Protocol Last Admin: 02/23/18 07:02 Dose: 6 unit Insulin Detemir (Levemir Vial) 10 units SQ HS [facility] Last Admin: 02/23/18 06:43 Dose: 10 units Lactulose (Cephulac (Oral Use)) 20 gm PO TID [facility] Last Admin: 02/23/18 06:10 Dose: Not Given Lidocaine (Lidoderm Patch -) 1 patch TP DAILY [facility] Last Admin: 02/22/18 10:46 Dose: Not Given Midodrine (Proamatine -) 2.5 mg PO TID-MID [facility] Last Admin: 02/22/18 17:25 Dose: 2.5 mg Miscellaneous (Lidoderm Patch Removal) 1 each MC DAILY@2200 [facility] Last Admin: 02/23/18 04:04 Dose: Not Given Multivitamins/Minerals/Vitamin C (Tab-A-Vit -) 1 tab PO DAILY [facility] Last Admin: 02/22/18 10:59 Dose: 1 tab Mupirocin (Bactroban Ointment (For Decolonization) -) 1 applic NS BID [facility] Stop: 02/26/18 21:59 Last Admin: 02/22/18 22:10 Dose: 1 applic Nadolol (Corgard -) 20 mg PO DAILY [facility] Last Admin: 02/22/18 12:24 Dose: Not Given Pantoprazole Sodium (Protonix Iv) 40 mg IVPUSH DAILY [facility] Last Admin: 02/22/18 10:58 Dose: 40 mg Polyethylene Glycol (Miralax (For Daily Use) -) 17 gm PO DAILY [facility] Last Admin: 02/22/18 12:45 Dose: 17 gm Ranolazine (Ranexa -) 1,000 mg PO BID [facility] Last Admin: 02/23/18 04:04 Dose: Not Given Rifaximin (Xifaxan -) 550 mg PO BID [facility] Last Admin: 02/23/18 04:08 Dose: Not Given Senna (Senna -) 1 tab PO HS [facility] Last Admin: 02/23/18 04:08 Dose: Not Given - Objective Vital Signs: Vital Signs Temperature 99.1 F 02/23/18 06:00 Pulse Rate 58 L 02/23/18 08:35 Respiratory Rate 22 H 02/23/18 08:35 Blood Pressure 100/64 02/23/18 06:00 O2 Sat by Pulse Oximetry (%) 97 02/23/18 08:35 Cardiovascular: Yes: Tachycardia, S1 Respiratory: Yes: Mechanically Ventilated Gastrointestinal: Yes: Ascites, Distention Neurological: Yes: Unresponsive Labs: CBC, BMP 02/23/18 05:30 02/23/18 05:30 INR, PTT INR 1.51 (0.83-1.09) H 02/22/18 05:30 Problem List - Problems (1) Non-ST elevated myocardial infarction Assessment/Plan: -Follow cardiac enzymes - cardio consult - Follow trends - normal EF on echo 02/20 Laboratory Tests 02/23/18 01:15 Creatine Kinase 813 H Creatine Kinase Index 6.1 H* CK-MB (CK-2) 50.4 H Troponin I 22.90 H* Code(s): I21.4 - NON-ST ELEVATION (NSTEMI) MYOCARDIAL INFARCTION (2) Ascites Assessment/Plan: -s/p tap - gi on case - holding diuretics in setting of hypotension as above - on octreotide, IV protonix - for transfer to [facility] if stable Code(s): R18.8 - OTHER ASCITES Qualifiers: Ascites type: malignant Qualified Code(s): R18.0 - Malignant ascites (3) Hepatoma Assessment/Plan: per gi Code(s): C22.0 - LIVER CELL CARCINOMA (4) Hypotension Assessment/Plan: maybe due to paracentesis monitor cultures done iv abx Code(s): I95.9 - HYPOTENSION, UNSPECIFIED (5) Diabetes mellitus, insulin dependent (IDDM), uncontrolled Assessment/Plan: bgm Code(s): E10.65 - TYPE 1 DIABETES MELLITUS WITH HYPERGLYCEMIA (6) Elevated troponin I level Code(s): R74.8 - ABNORMAL LEVELS OF OTHER SERUM ENZYMES
[2018-02-23 09:19] LABS: ANISOCYTOSIS 2+; MACROCYTOSIS 0; PLATELET ESTIMATE NORMAL; TEAR DROP CELLS 1+; TOXIC GRANULATION 1+
[2018-02-23] MEDS ORDERED: DOPAMINE 400 MG/D5W - 400,000 MCG/250 ML INFUS.BAG IVPB ONE (09:25)
--- NOTE | 2018-02-23 09:48 | PN ---
Progress Note (short form) - Note Progress Note: Podiatry Brief Note: Seen at bedside, intubated. Events from yesterday noted. Will continue local wound care Rx. No podiatric surgery at this time, will have to wait and see how he responds clinically prior to any procedure. Will be on standby. Angel Aguirre DPM
[2018-02-23] MEDS: CEFEPIME 1 GM in DEXTROSE 5%-WATER 100 ML IVPB SCH (10:49)
[2018-02-23] MEDS: PANTOPRAZOLE SODIUM 40 MG VIAL IVPUSH SCH (11:30)
--- NOTE | 2018-02-23 11:55 | PN ---
Progress Note (short form) - Note Progress Note: Renal follow up for SHANEKA Pt seen and examined in the ICU overnight events reviewed pt not on 2 pressers and LR now anuric dark urine in gonzalez bag K was 6.2 last night, improved to 5.7 this am with medical management awaiting transfer to tertiary [facility] Vital Signs Temperature 99.1 F 02/23/18 06:00 Pulse Rate 58 L 02/23/18 08:35 Respiratory Rate 25 H 02/23/18 10:57 Blood Pressure 100/64 02/23/18 06:00 O2 Sat by Pulse Oximetry (%) 97 02/23/18 08:35 Intake & Output 02/20/18 02/21/18 02/22/18 02/23/18 23:59 23:59 23:59 23:59 Intake Total 1550 2700 2729 2328 Output Total 1800 720 10 Balance 6654 671 6406 2317 Weight 117.118 kg 120.429 kg intubated and sedated neck supple RRR Edil BC + abd ascities + LE edema gonzalez in place CBC, BMP 02/23/18 05:30 02/23/18 05:30 Current Medications Albumin Human (Albumin Human 25%) 12.5 gm IVPB Q30M J CARLOS Atorvastatin Calcium (Lipitor -) 80 mg PO HS J CARLOS Last Admin: 02/23/18 06:09 Dose: Not Given Chlorhexidine Gluconate (Hibiclens For Decolonization -) 1 applic TP HS J CARLOS Last Admin: 02/22/18 22:11 Dose: 1 applic Collagenase (Santyl -) 1 applic TP DAILY J CARLOS; Protocol Last Admin: 02/22/18 17:25 Dose: 1 applic Octreotide Acetate 1,200 mcg/ (Dextrose) 500 mls @ 20.83 mls/hr IVPB ASDIR J CARLOS ; Protocol Last Admin: 02/22/18 20:35 Dose: 20.83 mls/hr Cefepime HCl 1 gm/ Dextrose 100 mls @ 100 mls/hr IVPB Q12H J CARLOS; Protocol Last Admin: 02/23/18 10:49 Dose: 100 mls/hr Norepinephrine Bitartrate 8, (000 mcg/ Dextrose) 500 mls @ 18.75 mls/hr IV TITR J CARLOS; Protocol Last Admin: 02/22/18 23:15 Dose: 30 mcg/min, 112.5 mls/hr Dopamine HCl/Dextrose (Dopamine 400 Mg/D5w -) 400,000 mcg in 250 mls @ 21.96 mls/hr IVPB TITR [facility]; Protocol Last Admin: 02/22/18 23:45 Dose: 20 mcg/kg/min, 87.839 mls/hr Midazolam HCl 100 mg/ Sodium (Chloride) 100 mls @ 5 mls/hr IVPB TITR J CARLOS; Protocol Last Admin: 02/22/18 23:45 Dose: 5 mg/hr, 5 mls/hr Sodium Chloride (Normal Saline -) 1,000 mls @ 125 mls/hr IV ASDIR J CARLOS Sodium Chloride (Normal Saline -) 250 mls @ 3,000 mls/hr IV PRN PRN PRN Reason: Hypotension during Dialysis Stop: 02/24/18 11:56 Insulin Aspart (Novolog Vial Sliding Scale -) 1 vial SQ ACHS [facility]; Protocol Last Admin: 02/23/18 07:02 Dose: 6 unit Insulin Detemir (Levemir Vial) 10 units SQ HS [facility] Last Admin: 02/23/18 06:43 Dose: 10 units Lactulose (Cephulac (Oral Use)) 20 gm PO TID [facility] Last Admin: 02/23/18 06:10 Dose: Not Given Lidocaine (Lidoderm Patch -) 1 patch TP DAILY [facility] Last Admin: 02/22/18 10:46 Dose: Not Given Midodrine (Proamatine -) 2.5 mg PO TID-MID [facility] Last Admin: 02/22/18 17:25 Dose: 2.5 mg Miscellaneous (Lidoderm Patch Removal) 1 each MC DAILY@2200 [facility] Last Admin: 02/23/18 04:04 Dose: Not Given Multivitamins/Minerals/Vitamin C (Tab-A-Vit -) 1 tab PO DAILY [facility] Last Admin: 02/22/18 10:59 Dose: 1 tab Mupirocin (Bactroban Ointment (For Decolonization) -) 1 applic NS BID [facility] Stop: 02/26/18 21:59 Last Admin: 02/22/18 22:10 Dose: 1 applic Nadolol (Corgard -) 20 mg PO DAILY [facility] Last Admin: 02/22/18 12:24 Dose: Not Given Pantoprazole Sodium (Protonix Iv) 40 mg IVPUSH DAILY [facility] Last Admin: 02/22/18 10:58 Dose: 40 mg Polyethylene Glycol (Miralax (For Daily Use) -) 17 gm PO DAILY [facility] Last Admin: 02/22/18 12:45 Dose: 17 gm Ranolazine (Ranexa -) 1,000 mg PO BID [facility] Last Admin: 02/23/18 04:04 Dose: Not Given Rifaximin (Xifaxan -) 550 mg PO BID [facility] Last Admin: 02/23/18 04:08 Dose: Not Given Senna (Senna -) 1 tab PO HS [facility] Last Admin: 02/23/18 04:08 Dose: Not Given A/P 58 year old gentleman with hx of HCC s/p radiation Tx, Non-alcoholic cirrhosis, CAD, DM, hx of SHANEKA who presented with LE wound found to have worsening asciteis now with NSTEMI and SHANEKA. 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
[2018-02-23] MEDS ORDERED: SODIUM CHLORIDE 250 ML IV PRN ×2 (11:56→23:13)
--- NOTE | 2018-02-23 11:57 | PN ---
Progress Note (short form) - Note Progress Note: - Note Progress Note: s: overnight had code 99 and acls performed and now intubated on pressors o: Current Medications Generic Name Dose Route Start Last Admin Trade Name Tello PRN Reason Stop Dose Admin Albumin Human 12.5 gm 02/23/18 12:00 Albumin Human 25% IVPB Q30M J CARLOS Atorvastatin Calcium 80 mg 02/21/18 22:00 02/23/18 06:09 Lipitor - PO Not Given HS J CARLOS Chlorhexidine Gluconate 1 applic 02/21/18 22:00 02/22/18 22:11 Hibiclens For Decolonization - TP 1 applic HS J CARLOS Administration Collagenase 1 applic 02/18/18 10:00 02/22/18 17:25 Santyl - TP 1 applic DAILY J CARLOS Administration Protocol Octreotide Acetate 1,200 mcg/ 500 mls @ 20.83 mls/hr 02/21/18 19:45 02/22/18 20:35 Dextrose IVPB 20.83 mls/hr ASDIR J CARLOS Administration Protocol 50 MCG/HR Cefepime HCl 1 gm/ Dextrose 100 mls @ 100 mls/hr 02/21/18 20:17 02/23/18 10: 49 IVPB 100 mls/hr Q12H J CARLOS Administration Protocol Norepinephrine Bitartrate 8, 500 mls @ 18.75 mls/hr 02/22/18 23:45 02/22/18 23:15 000 mcg/ Dextrose IV 30 mcg/min TITR J CARLOS 112.5 mls/hr Administration Protocol 5 MCG/MIN Dopamine HCl/Dextrose 400,000 mcg in 250 mls @ 21.96 mls/hr 02/22/18 23:45 23:45 Dopamine 400 Mg/D5w - IVPB 20 mcg/kg/min TITR J CARLOS 87.839 mls/hr Administration Protocol 5 MCG/KG/MIN Midazolam HCl 100 mg/ Sodium 100 mls @ 5 mls/hr 02/22/18 23:45 02/22/18 23:45 Chloride IVPB 5 mg/hr TITR J CARLOS 5 mls/hr Administration Protocol 5 MG/HR Sodium Chloride 1,000 mls @ 125 mls/hr 02/23/18 12:00 Normal Saline - IV ASDIR J CARLOS Sodium Chloride 250 mls @ 3,000 mls/hr 02/23/18 11:56 Normal Saline - IV 02/24/18 11:56 PRN PRN Hypotension during Dialysis Insulin Aspart 1 vial 02/21/18 16:30 02/23/18 07:02 Novolog Vial Sliding Scale - SQ 6 unit ACHS J CARLOS Administration Protocol Insulin Detemir 10 units 02/17/18 22:00 02/23/18 06:43 Levemir Vial SQ 10 units HS J CARLOS Administration Lactulose 20 gm 02/17/18 22:00 02/23/18 06:10 Cephulac (Oral Use) PO Not Given TID J CARLOS Lidocaine 1 patch 02/22/18 10:00 02/22/18 10:46 Lidoderm Patch - TP Not Given DAILY J CARLOS Midodrine 2.5 mg 02/22/18 14:00 02/22/18 17:25 Proamatine - PO 2.5 mg TID-MID J CARLOS Administration Miscellaneous 1 each 02/22/18 22:00 02/23/18 04:04 Lidoderm Patch Removal MC Not Given DAILY@2200 J CARLOS Multivitamins/Minerals/Vitamin C 1 tab 02/18/18 10:00 02/22/18 10:59 Tab-A-Vit - PO 1 tab DAILY J CARLOS Administration Mupirocin 1 applic 02/21/18 22:00 02/22/18 22:10 Bactroban Ointment (For Decolonization) - NS 02/26/18 21:59 1 applic BID J CARLOS Administration Nadolol 20 mg 02/18/18 10:00 02/22/18 12:24 Corgard - PO Not Given DAILY J CARLOS Pantoprazole Sodium 40 mg 02/22/18 10:00 02/22/18 10:58 Protonix Iv IVPUSH 40 mg DAILY J CARLOS Administration Polyethylene Glycol 17 gm 02/21/18 10:00 02/22/18 12:45 Miralax (For Daily Use) - PO 17 gm DAILY J CARLOS Administration Ranolazine 1,000 mg 02/17/18 22:00 02/23/18 04:04 Ranexa - PO Not Given BID J CARLOS Rifaximin 550 mg 02/17/18 22:00 02/23/18 04:08 Xifaxan - PO Not Given BID J CARLOS Senna 1 tab 02/21/18 22:00 02/23/18 04:08 Senna - PO Not Given HS J CARLOS Vital Signs: Vital Signs Temp 99.1 F 02/23/18 06:00 Pulse 58 L 02/23/18 08:35 Resp 25 H 02/23/18 10:57 BP 100/64 02/23/18 06:00 Pulse Ox 97 02/23/18 08:35 Intake & Output 02/22/18 02/22/18 02/23/18 11:59 23:59 11:59 Intake Total 1396 1333 2328 Output Total 600 120 10 Balance 796 1213 2318 Weight 258 lb 3.2 oz 265 lb 8 oz Intake: IV 369 674 4039 DOPAMINE 400 MG/D5W - 400 528 ,000 mcg In 250 ml @ 5 MCG/KG/MIN 21.96 mls/hr IVPB TITR J CARLOS Rx#: [id number] LACTATED RINGERS SOLUTION 600 875 1,000 ml In 1,000 ml @ 125 mls/hr IV ASDIR J CARLOS Rx#:[id number] Levophed - 8,000 Mcg In 791 D5w - 492 ml @ 5 MCG/MIN 18.75 mls/hr IV TITR J CARLOS Rx#:[id number] Normal Saline - 1,000 ml 996 150 @ 83 mls/hr IV ASDIR J CARLOS Rx#:[id number] Versed - 100 mg In Normal 34 Saline - 100 ml @ 5 MG/ HR 5 mls/hr IVPB TITR J CARLOS Rx#:[id number] s/l 83 IVPB 350 350 100 Oral 50 Albumin 150 Output: Urine 600 120 10 Shelley 600 120 10 Other: Voiding Method Indwelling Catheter Indwelling Catheter Bowel Movement Yes No No Body Mass Index (BMI) 37.0 Weight Measurement Method Built in [facility] Constitutional: Yes: sedated, intubated Respiratory: Yes: cta bl anterior, vented Gastrointestinal: Yes: Normal Bowel Sounds Cardiovascular: Yes: Regular Rate and Rhythm JVD: No Heart Sounds: Yes: S1, S2 Edema: Yes Peripheral Pulses WNL: Yes Integumentary: No: Jaundice diaphoresis Neurological: sedated Laboratory Last Values WBC 25.7 K/mm3 (4.0-10.0) H 02/23/18 05:30 RBC 2.62 M/mm3 (4.00-5.60) L 02/23/18 05:30 Hgb 7.7 GM/dL (11.7-16.9) L 02/23/18 05:30 Hct 23.9 % (35.4-49) L 02/23/18 05:30 MCV 91.0 fl (80-96) 02/23/18 05:30 MCH 29.3 pg (25.7-33.7) 02/23/18 05:30 MCHC 32.2 g/dl (32.0-35.9) 02/23/18 05:30 RDW 20.4 % (11.9-15.9) H 02/23/18 05:30 Plt Count 157 K/MM3 (134-434) 02/23/18 05:30 MPV 8.4 fl (7.5-11.1) 02/23/18 05:30 Absolute Neuts (auto) 23.6 K/mm3 (1.5-8.0) H 02/23/18 05:30 Neutrophils % 92.0 % (42.8-82.8) H 02/23/18 05:30 Neutrophils % (Manual) 88.7 % (42.8-82.8) H 02/23/18 05:30 Band Neutrophils % 4.1 % 02/23/18 05:30 Lymphocytes % 2.1 % (8-40) L D 02/23/18 05:30 Lymphocytes % (Manual) 3.1 % (8-40) L 02/23/18 05:30 Monocytes % 5.7 % (3.8-10.2) 02/23/18 05:30 Monocytes % (Manual) 2 % (3.8-10.2) L 02/23/18 05:30 Eosinophils % 0.0 % (0-4.5) D 02/23/18 05:30 Eosinophils % (Manual) 0.0 % (0-4.5) D 02/23/18 05:30 Basophils % 0.2 % (0-2.0) 02/23/18 05:30 Basophils % (Manual) 0.0 % (0-2.0) 02/23/18 05:30 Myelocytes % (Man) 0 % (0-2) 02/23/18 05:30 Promyelocytes % (Man) 1 % (0-2) D 02/23/18 05:30 Blast Cells % (Manual) 0 % (0-0) 02/23/18 05:30 Nucleated RBC % 0 % (0-0) 02/23/18 05:30 Metamyelocytes 1 % (0-2) D 02/23/18 05:30 Hypochromia 0 02/23/18 05:30 Toxic Granulation 1+ 02/23/18 05:30 Platelet Estimate Normal 02/23/18 05:30 Polychromasia 1+ 02/23/18 05:30 Poikilocytosis 1+ 02/23/18 05:30 Anisocytosis 2+ 02/23/18 05:30 Microcytosis 2+ 02/23/18 05:30 Macrocytosis 0 02/23/18 05:30 Tear Drop Cells 1+ 02/23/18 05:30 Retic Count 4.65 % (0.5-1.5) H D 02/22/18 05:30 Haptoglobin 138 mg/dL (34-200) 02/22/18 05:30 PT with INR 17.90 SEC (9.7-13.0) H 02/22/18 05:30 INR 1.51 (0.83-1.09) H 02/22/18 05:30 PTT (Actin FS) 40.6 SECONDS (25.2-36.5) H 02/22/18 05:30 Anticoagulation Therapy No Result Required. 02/23/18 06:30 Puncture Site Arterial line 02/23/18 06:30 ABG pH 7.28 (7.35-7.45) L 02/23/18 06:30 ABG pCO2 at Pt Temp 26.0 mmHg (35-45) L D 02/23/18 06:30 ABG pO2 at Pt Temp 93.2 mmHg (80-100) 02/23/18 06:30 ABG HCO3 11.8 meq/L (22-26) L* 02/23/18 06:30 ABG O2 Sat (Measured) 96.4 % (90-98.9) 02/23/18 06:30 ABG O2 Content 10.6 % vol (15-22) L 02/23/18 06:30 ABG Base Excess -13.5 meq/l (-2-2) L* 02/23/18 06:30 Yousif Test No Result Required. 02/23/18 06:30 VBG pH 7.16 (7.32-7.42) L* D 02/22/18 23:45 POC VBG pCO2 43.5 mmHg (38-52) 02/22/18 23:45 POC VBG pO2 35.8 mmHg (28-48) D 02/22/18 23:45 Mixed VBG HCO3 14.9 meq/L (19-25) L* 02/22/18 23:45 O2 Delivery Device No Result Required. 02/23/18 06:30 Oxygen Flow Rate No Result Required. 02/23/18 06:30 Vent Mode No Result Required. 02/23/18 06:30 Vent Rate 500 02/23/18 06:30 Mechanical Rate No Result Required. 02/23/18 06:30 PEEP 5.0 cmH2O 02/23/18 06:30 Pressure Support Vent No Result Required. 02/23/18 06:30 Sodium 128 mmol/L (136-145) L 02/23/18 05:30 Potassium 5.7 mmol/L (3.5-5.1) H 02/23/18 05:30 Chloride 99 mmol/L (98-107) 02/23/18 05:30 Carbon Dioxide 14 mmol/L (21-32) L 02/23/18 05:30 Anion Gap 16 MMOL/L (8-16) 02/23/18 05:30 BUN 69 mg/dL (7-18) H 02/23/18 05:30 Creatinine 3.5 mg/dL (0.55-1.3) H 02/23/18 05:30 Creat Clearance w eGFR 17.96 (>60) 02/23/18 05:30 POC Glucometer 400.49269 UNITS (80-120) 02/23/18 11:07 Random Glucose 304 mg/dL (74-106) H* 02/23/18 05:30 Lactic Acid 3.6 mmol/L (0.4-2.0) H* 02/23/18 01:15 Calcium 7.7 mg/dL (8.5-10.1) L 02/23/18 05:30 Phosphorus 6.7 mg/dL (2.5-4.9) H 02/23/18 05:30 Magnesium 2.3 mg/dL (1.8-2.4) 02/23/18 05:30 Iron 66 ug/dL (38-169) 02/21/18 07:10 TIBC 158 ug/dL (250-450) L 02/21/18 07:10 Iron Saturation 42 % (15-55) 02/21/18 07:10 Ferritin 175.7 ng/ml (8-388) 02/21/18 07:10 Total Bilirubin 5.3 mg/dL (0.2-1) H 02/23/18 05:30 AST 415 U/L (15-37) H 02/23/18 05:30 ALT 105 U/L (13-61) H 02/23/18 05:30 Alkaline Phosphatase 146 U/L (45-117) H 02/23/18 05:30 Ammonia 68.70 umol/L (11-32) H 02/18/18 06:40 LD Total 310 U/L (87-246) H 02/22/18 05:30 Creatine Kinase 813 IU/L (26-308) H 02/23/18 01:15 Creatine Kinase Index 6.1 % (0.0-5.0) H* 02/23/18 01:15 CK-MB (CK-2) 50.4 ng/mL (0.5-3.6) H 02/23/18 01:15 Troponin I 22.90 ng/ml (0.00-0.05) H* 02/23/18 01:15 C-Reactive Protein 16.9 MG/DL (0.00-0.3) H 02/19/18 07:00 Total Protein 7.1 g/dl (6.4-8.2) 02/23/18 05:30 Albumin 3.5 g/dl (3.4-5.0) 02/23/18 05:30 Vitamin B12 1898 pg/ml (193-986) H 02/21/18 07:10 Folate 2307 ng/mL (>498) 02/21/18 07:10 Folate Hemolysate 597.4 ng/mL (Not Estab.) 02/21/18 07:10 TSH 0.27 uIU/ml (0.358-3.74) L D 02/21/18 07:10 Free T4 1.37 ng/dl (0.76-1.16) H 02/21/18 07:10 Urine Color Kaley 10/09/18 17:39 Urine Appearance Slcloudy 02/21/18 17:39 Urine pH 5.0 (5.0-8.0) 02/21/18 17:39 Ur Specific [place] 1.016 (1.010-1.035) 02/21/18 17:39 Urine Protein Negative (NEGATIVE) 02/21/18 17:39 Urine Glucose (UA) Negative (NEGATIVE) 02/21/18 17:39 Urine Ketones Negative (NEGATIVE) 02/21/18 17:39 Urine Blood Negative (NEGATIVE) 02/21/18 17:39 Urine Nitrite Negative (NEGATIVE) 02/21/18 17:39 Urine Bilirubin Negative (<2.0 mg/dL) 02/21/18 17:39 Urine Urobilinogen 4.0 e.u/dl mg/dL (0.2-1.0) 02/21/18 17:39 Ur Leukocyte Esterase Negative (NEGATIVE) 02/21/18 17:39 Urine WBC (Auto) 5 /hpf (3-5) 02/19/18 13:00 Urine RBC (Auto) 40 /hpf (0-3) 02/19/18 13:00 Ur Epithelial Cells Rare /HPF (FEW) 02/19/18 13:00 Hyaline Casts 16 /lpf 02/19/18 13:00 Stool Occult Blood Positive (NEGATIVE) 02/21/18 12:00 Random Vancomycin 49.1 ug/ml (18-26) H* 02/22/18 20:35 Vancomycin Pre-Dose 20.5 ug/ml (18-26) 02/23/18 05:30 Blood Type A POSITIVE 02/20/18 09:15 Antibody Screen Negative 02/20/18 09:15 Crossmatch See Detail 02/20/18 09:15 EKG: sinus fermín, LAD, LVH Echo 10/2016 LV mildly dilated, nl LV function, RV nl function and size, mildly dilated RA, tr TR echo 02/2018 LV mildly dilated, nl LV function EF 60-65%, grade II diastolic dysfunction, increased filling pressures, RV nl, LA mod dilatd, RA nl mibi 05/2015 no ischemia, EF 53% tele: sr est cct 35 mins Assessment/Plan 58M h/o CAD s/p stents 2007,HERNANDEZ, HCC with ascites, DM, foot ulcer p/w foot ulcer debridement, ascites, now with NSTEMI NSTEMI - mild MARGARITO in I, aVL on EKG initially then resolved - discussed case with Dr. Jones, interventional cardiology [facility] - given anemia, SHANEKA, cirrhosis in patient asymptomatic, nl EF would defer cardiac catheterization at this point, medical management and monitor closely - deferring clopidogrel, heparin gtt given stool occult blood pos, anemia requiring transfusion during this admission, also hx varices and gettig IV protonix, octreotide - would defer safety of anticoagulation/anti platelet agents to transportation department head given concern for bleed with hx varices, stool blood pos - agree with transfer to tertiary care center - transportation department head Dr. Rendon is at [facility] - continue atorvastatin, aspirin, ranolazine - normal EF on echo 02/20 hypotension, septic shock: -had code 99 02/22, now intubated on pressors -cont abx -wean pressors as tolerated ascites, LLE edema - ascites likely in setting of HCC, HERNANDEZ - on spironolactone and lasix at home, now s/p paracentesis - edema likely in setting of lower ext wound - lungs clear - echo normal EF, with diastolic dysfunction - holding diuretics in setting of hypotension as above HCC, HERNANDEZ, cirrhosis - on octreotide, IV protonix GI following - plan for transfer to [facility] for tertiary care foot ulcer - wound care, ID consulted with plan for debridement this week - patient is not cleared from cardiac standpoint due to NSTEMI, hypotension - on abx CAD - on aspirin, statin, ranolazine - manage NSTEMI as above - normal EF on echo 02/2018, grade II diastolic dysfunction
[2018-02-23] MEDS ORDERED: SODIUM CHLORIDE 1,000 ML IV SCH (12:00)
--- NOTE | 2018-02-23 12:10 | EKG ---
Test Reason : Blood Pressure : / mmHG Vent. Rate : 077 BPM Atrial Rate : 077 BPM P-R Int : 000 ms QRS Dur : 162 ms QT Int : 494 ms P-R-T Axes : 000 -59 033 degrees QTc Int : 559 ms POOR DATA QUALITY, INTERPRETATION MAY BE ADVERSELY AFFECTED UNDETERMINED RHYTHM RIGHT BUNDLE BRANCH BLOCK LEFT ANTERIOR FASCICULAR BLOCK BIFASCICULAR BLOCK ST ELEVATION CONSIDER LATERAL INJURY OR ACUTE INFARCT ABNORMAL ECG Confirmed by AMANDA AKHTAR MD ([id number]) on 02/23/2018 12:10:46 PM Referred By: Confirmed By:AMANDA AKHTAR MD
[2018-02-23] MEDS: LIDOCAINE 5% TOPICAL PATCH TP SCH (12:37)
[2018-02-23] MEDS: MUPIROCIN 2% TOPICAL OINTMENT FOR DECOLONIZATION NS SCH ×2 (12:37→22:18)
[2018-02-23] MEDS: NADOLOL 20 MG TABLET (FP) PO SCH (12:37)
[2018-02-23] MEDS: MULTIVITAMINS (DAILY MVI) TABLET (FP) PO SCH (12:38)
[2018-02-23] MEDS: POLYETHYLENE GLYCOL 3350 119 GM BTL PO SCH (12:38)
[2018-02-23] MEDS: COLLAGENASE CLOSTRIDIUM HIST. 30 GRAMS TUBE TP SCH (12:38)
--- NOTE | 2018-02-23 13:01 | PN ---
Teaching Attending Note Name of Resident: Katlin Smith ATTENDING PHYSICIAN STATEMENT I saw and evaluated the patient. I reviewed the resident's note and discussed the case with the resident. I agree with the resident's findings and plan as documented. SUBJECTIVE: Patient seen and examined in the ICU. Events from last night noted. Significant clinical decompensation noted requiring Intubation and mechanical ventilation. Currently on NE @ 30mcq and Dopamine @ 15mcq for hemodynamic support. D/W Renal: will initiate HD. Family has agreed to access for HD. OBJECTIVE: Intake & Output 02/20/18 02/21/18 02/22/18 02/23/18 23:59 23:59 23:59 23:59 Intake Total 1550 2700 2729 2328 Output Total 1800 720 10 Balance 1149 008 4494 2318 Weight 258 lb 3.2 oz 265 lb 8 oz Last Vital Signs Temp Pulse Resp BP Pulse Ox 99.1 F 58 L 25 H 100/64 97 02/23/18 06:00 02/23/18 08:35 02/23/18 10:57 02/23/18 06:00 02/23/18 08:35 Active Medications Albumin Human (Albumin Human 25%) 12.5 gm IVPB Q30M J CARLOS Stop: 02/23/18 13:31 Atorvastatin Calcium (Lipitor -) 80 mg PO HS J CARLOS Last Admin: 02/23/18 06:09 Dose: Not Given Chlorhexidine Gluconate (Hibiclens For Decolonization -) 1 applic TP HS J CARLOS Last Admin: 02/22/18 22:11 Dose: 1 applic Collagenase (Santyl -) 1 applic TP DAILY J CARLOS; Protocol Last Admin: 02/23/18 12:38 Dose: 1 applic Octreotide Acetate 1,200 mcg/ (Dextrose) 500 mls @ 20.83 mls/hr IVPB ASDIR J CARLOS ; Protocol Last Admin: 02/22/18 20:35 Dose: 20.83 mls/hr Cefepime HCl 1 gm/ Dextrose 100 mls @ 100 mls/hr IVPB Q12H J CARLOS; Protocol Last Admin: 02/23/18 10:49 Dose: 100 mls/hr Norepinephrine Bitartrate 8, (000 mcg/ Dextrose) 500 mls @ 18.75 mls/hr IV TITR J CARLOS; Protocol Last Admin: 02/22/18 23:15 Dose: 30 mcg/min, 112.5 mls/hr Dopamine HCl/Dextrose (Dopamine 400 Mg/D5w -) 400,000 mcg in 250 mls @ 21.96 mls/hr IVPB TITR [facility]; Protocol Last Admin: 02/22/18 23:45 Dose: 20 mcg/kg/min, 87.839 mls/hr Midazolam HCl 100 mg/ Sodium (Chloride) 100 mls @ 5 mls/hr IVPB TITR J CARLOS; Protocol Last Admin: 02/22/18 23:45 Dose: 5 mg/hr, 5 mls/hr Sodium Chloride (Normal Saline -) 1,000 mls @ 125 mls/hr IV ASDIR [facility] Last Admin: 02/23/18 12:42 Dose: 125 mls/hr Sodium Chloride (Normal Saline -) 250 mls @ 3,000 mls/hr IV PRN PRN PRN Reason: Hypotension during Dialysis Stop: 02/24/18 11:56 Insulin Aspart (Novolog Vial Sliding Scale -) 1 vial SQ ACHS [facility]; Protocol Last Admin: 02/23/18 11:00 Dose: 10 unit Insulin Detemir (Levemir Vial) 10 units SQ HS [facility] Last Admin: 02/23/18 06:43 Dose: 10 units Lactulose (Cephulac (Oral Use)) 20 gm PO TID [facility] Last Admin: 02/23/18 06:10 Dose: Not Given Lidocaine (Lidoderm Patch -) 1 patch TP DAILY [facility] Last Admin: 02/23/18 12:37 Dose: 1 patch Miscellaneous (Lidoderm Patch Removal) 1 each MC DAILY@2200 [facility] Last Admin: 02/23/18 04:04 Dose: Not Given Multivitamins/Minerals/Vitamin C (Tab-A-Vit -) 1 tab PO DAILY [facility] Last Admin: 02/23/18 12:38 Dose: Not Given Mupirocin (Bactroban Ointment (For Decolonization) -) 1 applic NS BID [facility] Stop: 02/26/18 21:59 Last Admin: 02/23/18 12:37 Dose: 1 applic Nadolol (Corgard -) 20 mg PO DAILY [facility] Last Admin: 02/23/18 12:37 Dose: Not Given Pantoprazole Sodium (Protonix Iv) 40 mg IVPUSH DAILY [facility] Last Admin: 02/22/18 10:58 Dose: 40 mg Polyethylene Glycol (Miralax (For Daily Use) -) 17 gm PO DAILY [facility] Last Admin: 02/23/18 12:38 Dose: Not Given Ranolazine (Ranexa -) 1,000 mg PO BID [facility] Last Admin: 02/23/18 12:38 Dose: Not Given Rifaximin (Xifaxan -) 550 mg PO BID [facility] Last Admin: 02/23/18 12:38 Dose: Not Given Senna (Senna -) 1 tab PO HS [facility] Last Admin: 02/23/18 04:08 Dose: Not Given Gen: Intubated and sedated Heart: Bradycardia Lung: Bilateral coarse rhonchi, no wheeze Abd: softly distended, +ascites Ext: + edema Laboratory Results - last 24 hr 02/20/18 02/21/18 02/22/18 09:15 07:10 05:30 WBC RBC Hgb Hct 25.9 L MCV MCH MCHC RDW Plt Count MPV Absolute Neuts (auto) Neutrophils % Neutrophils % (Manual) Band Neutrophils % Lymphocytes % Lymphocytes % (Manual) Monocytes % Monocytes % (Manual) Eosinophils % Eosinophils % (Manual) Basophils % Basophils % (Manual) Myelocytes % (Man) Promyelocytes % (Man) Blast Cells % (Manual) Nucleated RBC % Metamyelocytes Hypochromia Toxic Granulation Platelet Estimate Polychromasia Poikilocytosis Anisocytosis Microcytosis Macrocytosis Tear Drop Cells Haptoglobin 138 Anticoagulation Therapy Puncture Site ABG pH ABG pCO2 at Pt Temp ABG pO2 at Pt Temp ABG HCO3 ABG O2 Sat (Measured) ABG O2 Content ABG Base Excess Yousif Test VBG pH POC VBG pCO2 POC VBG pO2 Mixed VBG HCO3 O2 Delivery Device Oxygen Flow Rate Vent Mode Vent Rate Mechanical Rate PEEP Pressure Support Vent Sodium Potassium Chloride Carbon Dioxide Anion Gap BUN Creatinine Creat Clearance w eGFR POC Glucometer Random Glucose Lactic Acid Calcium Phosphorus Magnesium Total Bilirubin AST ALT Alkaline Phosphatase Creatine Kinase Creatine Kinase Index CK-MB (CK-2) Troponin I Total Protein Albumin Folate 2307 Folate Hemolysate 597.4 Random Vancomycin Vancomycin Pre-Dose Crossmatch See Detail 02/22/18 02/22/18 02/22/18 12:30 17:08 19:30 WBC RBC Hgb Hct MCV MCH MCHC RDW Plt Count MPV Absolute Neuts (auto) Neutrophils % Neutrophils % (Manual) Band Neutrophils % Lymphocytes % Lymphocytes % (Manual) Monocytes % Monocytes % (Manual) Eosinophils % Eosinophils % (Manual) Basophils % Basophils % (Manual) Myelocytes % (Man) Promyelocytes % (Man) Blast Cells % (Manual) Nucleated RBC % Metamyelocytes Hypochromia Toxic Granulation Platelet Estimate Polychromasia Poikilocytosis Anisocytosis Microcytosis Macrocytosis Tear Drop Cells Haptoglobin Anticoagulation Therapy Puncture Site ABG pH ABG pCO2 at Pt Temp ABG pO2 at Pt Temp ABG HCO3 ABG O2 Sat (Measured) ABG O2 Content ABG Base Excess Yousif Test VBG pH POC VBG pCO2 POC VBG pO2 Mixed VBG HCO3 O2 Delivery Device Oxygen Flow Rate Vent Mode Vent Rate Mechanical Rate PEEP Pressure Support Vent Sodium 130 L 129 L Potassium 5.5 H 5.6 H Chloride 103 105 Carbon Dioxide 19 L 17 L Anion Gap 9 7 L BUN 64 H 65 H Creatinine 2.7 H 2.9 H Creat Clearance w eGFR 24.23 22.31 POC Glucometer [phone] Random Glucose 192 H 183 H Lactic Acid Calcium 7.8 L 8.0 L Phosphorus Magnesium Total Bilirubin 4.8 H 5.3 H AST 141 H 150 H ALT 31 31 Alkaline Phosphatase 158 H 164 H Creatine Kinase 819 H Creatine Kinase Index 4.3 CK-MB (CK-2) 35.7 H Troponin I 20.00 H* 20.10 H* Total Protein 6.9 7.2 Albumin 2.7 L 2.9 L Folate Folate Hemolysate Random Vancomycin Vancomycin Pre-Dose Crossmatch 02/22/18 02/22/18 02/22/18 20:35 21:44 23:45 WBC RBC Hgb Hct MCV MCH MCHC RDW Plt Count MPV Absolute Neuts (auto) Neutrophils % Neutrophils % (Manual) Band Neutrophils % Lymphocytes % Lymphocytes % (Manual) Monocytes % Monocytes % (Manual) Eosinophils % Eosinophils % (Manual) Basophils % Basophils % (Manual) Myelocytes % (Man) Promyelocytes % (Man) Blast Cells % (Manual) Nucleated RBC % Metamyelocytes Hypochromia Toxic Granulation Platelet Estimate Polychromasia Poikilocytosis Anisocytosis Microcytosis Macrocytosis Tear Drop Cells Haptoglobin Anticoagulation Therapy No Result Required. Puncture Site No Result Required. ABG pH 7.22 L* ABG pCO2 at Pt Temp 33.0 L ABG pO2 at Pt Temp 109.0 H ABG HCO3 13.2 L* ABG O2 Sat (Measured) 97.4 ABG O2 Content 10.6 L ABG Base Excess -13.1 L* Yousif Test No Result Required. VBG pH POC VBG pCO2 POC VBG pO2 Mixed VBG HCO3 O2 Delivery Device No Result Required. Oxygen Flow Rate No Result Required. Vent Mode No Result Required. Vent Rate No Result Required. Mechanical Rate No Result Required. PEEP Pressure Support Vent No Result Required. Sodium Potassium Chloride Carbon Dioxide Anion Gap BUN Creatinine Creat Clearance w eGFR POC Glucometer 239.02678 Random Glucose Lactic Acid Calcium Phosphorus Magnesium Total Bilirubin AST ALT Alkaline Phosphatase Creatine Kinase Creatine Kinase Index CK-MB (CK-2) Troponin I Total Protein Albumin Folate Folate Hemolysate Random Vancomycin 49.1 H* Vancomycin Pre-Dose Crossmatch 02/22/18 02/23/18 02/23/18 23:45 01:15 01:15 WBC 25.2 H RBC 2.61 L Hgb 7.8 L Hct 24.1 L MCV 92.6 MCH 29.8 MCHC 32.1 RDW 21.9 H Plt Count 184 D MPV 8.3 Absolute Neuts (auto) 23.6 H Neutrophils % No Result Required. Neutrophils % (Manual) 81.0 Band Neutrophils % 13.0 Lymphocytes % No Result Required. Lymphocytes % (Manual) 3.0 L D Monocytes % Monocytes % (Manual) 3 L Eosinophils % Eosinophils % (Manual) Basophils % Basophils % (Manual) Myelocytes % (Man) Promyelocytes % (Man) Blast Cells % (Manual) Nucleated RBC % 0 Metamyelocytes Hypochromia Toxic Granulation Platelet Estimate Polychromasia Poikilocytosis Anisocytosis Microcytosis Macrocytosis Tear Drop Cells Haptoglobin Anticoagulation Therapy Puncture Site ABG pH ABG pCO2 at Pt Temp ABG pO2 at Pt Temp ABG HCO3 ABG O2 Sat (Measured) ABG O2 Content ABG Base Excess Yousif Test VBG pH 7.16 L* D POC VBG pCO2 43.5 POC VBG pO2 35.8 D Mixed VBG HCO3 14.9 L* O2 Delivery Device Oxygen Flow Rate Vent Mode Vent Rate Mechanical Rate PEEP Pressure Support Vent Sodium 128 L Potassium 6.2 H* Chloride 101 Carbon Dioxide 16 L Anion Gap 12 BUN 67 H Creatinine 3.4 H Creat Clearance w eGFR 18.57 POC Glucometer Random Glucose 261 H Lactic Acid Calcium 7.8 L Phosphorus 7.1 H Magnesium 2.4 Total Bilirubin 5.4 H AST 249 H ALT 56 Alkaline Phosphatase 152 H Creatine Kinase 813 H Creatine Kinase Index 6.1 H* CK-MB (CK-2) 50.4 H Troponin I 22.90 H* Total Protein 7.2 Albumin 3.4 Folate Folate Hemolysate Random Vancomycin Vancomycin Pre-Dose Crossmatch 02/23/18 02/23/18 02/23/18 01:15 04:47 05:30 WBC RBC Hgb Hct MCV MCH MCHC RDW Plt Count MPV Absolute Neuts (auto) Neutrophils % Neutrophils % (Manual) Band Neutrophils % Lymphocytes % Lymphocytes % (Manual) Monocytes % Monocytes % (Manual) Eosinophils % Eosinophils % (Manual) Basophils % Basophils % (Manual) Myelocytes % (Man) Promyelocytes % (Man) Blast Cells % (Manual) Nucleated RBC % Metamyelocytes Hypochromia Toxic Granulation Platelet Estimate Polychromasia Poikilocytosis Anisocytosis Microcytosis Macrocytosis Tear Drop Cells Haptoglobin Anticoagulation Therapy Puncture Site ABG pH ABG pCO2 at Pt Temp ABG pO2 at Pt Temp ABG HCO3 ABG O2 Sat (Measured) ABG O2 Content ABG Base Excess Yousif Test VBG pH POC VBG pCO2 POC VBG pO2 Mixed VBG HCO3 O2 Delivery Device Oxygen Flow Rate Vent Mode Vent Rate Mechanical Rate PEEP Pressure Support Vent Sodium Potassium Chloride Carbon Dioxide Anion Gap BUN Creatinine Creat Clearance w eGFR POC Glucometer [phone] Random Glucose Lactic Acid 3.6 H* Calcium Phosphorus Magnesium Total Bilirubin AST ALT Alkaline Phosphatase Creatine Kinase Creatine Kinase Index CK-MB (CK-2) Troponin I Total Protein Albumin Folate Folate Hemolysate Random Vancomycin Vancomycin Pre-Dose 20.5 Crossmatch 02/23/18 02/23/18 02/23/18 05:30 05:30 06:30 WBC 25.7 H RBC 2.62 L Hgb 7.7 L Hct 23.9 L MCV 91.0 MCH 29.3 MCHC 32.2 RDW 20.4 H Plt Count 157 MPV 8.4 Absolute Neuts (auto) 23.6 H Neutrophils % 92.0 H Neutrophils % (Manual) 88.7 H Band Neutrophils % 4.1 Lymphocytes % 2.1 L D Lymphocytes % (Manual) 3.1 L Monocytes % 5.7 Monocytes % (Manual) 2 L Eosinophils % 0.0 D Eosinophils % (Manual) 0.0 D Basophils % 0.2 Basophils % (Manual) 0.0 Myelocytes % (Man) 0 Promyelocytes % (Man) 1 D Blast Cells % (Manual) 0 Nucleated RBC % 0 Metamyelocytes 1 D Hypochromia 0 Toxic Granulation 1+ Platelet Estimate Normal Polychromasia 1+ Poikilocytosis 1+ Anisocytosis 2+ Microcytosis 2+ Macrocytosis 0 Tear Drop Cells 1+ Haptoglobin Anticoagulation Therapy No Result Required. Puncture Site Arterial line ABG pH 7.28 L ABG pCO2 at Pt Temp 26.0 L D ABG pO2 at Pt Temp 93.2 ABG HCO3 11.8 L* ABG O2 Sat (Measured) 96.4 ABG O2 Content 10.6 L ABG Base Excess -13.5 L* Yousif Test No Result Required. VBG pH POC VBG pCO2 POC VBG pO2 Mixed VBG HCO3 O2 Delivery Device No Result Required. Oxygen Flow Rate No Result Required. Vent Mode No Result Required. Vent Rate 500 Mechanical Rate No Result Required. PEEP 5.0 Pressure Support Vent No Result Required. Sodium 128 L Potassium 5.7 H Chloride 99 Carbon Dioxide 14 L Anion Gap 16 BUN 69 H Creatinine 3.5 H Creat Clearance w eGFR 17.96 POC Glucometer Random Glucose 304 H* Lactic Acid Calcium 7.7 L Phosphorus 6.7 H Magnesium 2.3 Total Bilirubin 5.3 H AST 415 H ALT 105 H Alkaline Phosphatase 146 H Creatine Kinase Creatine Kinase Index CK-MB (CK-2) Troponin I Total Protein 7.1 Albumin 3.5 Folate Folate Hemolysate Random Vancomycin Vancomycin Pre-Dose Crossmatch 02/23/18 02/23/18 02/23/18 06:52 10:50 11:07 WBC RBC Hgb Hct MCV MCH MCHC RDW Plt Count MPV Absolute Neuts (auto) Neutrophils % Neutrophils % (Manual) Band Neutrophils % Lymphocytes % Lymphocytes % (Manual) Monocytes % Monocytes % (Manual) Eosinophils % Eosinophils % (Manual) Basophils % Basophils % (Manual) Myelocytes % (Man) Promyelocytes % (Man) Blast Cells % (Manual) Nucleated RBC % Metamyelocytes Hypochromia Toxic Granulation Platelet Estimate Polychromasia Poikilocytosis Anisocytosis Microcytosis Macrocytosis Tear Drop Cells Haptoglobin Anticoagulation Therapy Puncture Site ABG pH ABG pCO2 at Pt Temp ABG pO2 at Pt Temp ABG HCO3 ABG O2 Sat (Measured) ABG O2 Content ABG Base Excess Yousif Test VBG pH POC VBG pCO2 POC VBG pO2 Mixed VBG HCO3 O2 Delivery Device Oxygen Flow Rate Vent Mode Vent Rate Mechanical Rate PEEP Pressure Support Vent Sodium Potassium Chloride Carbon Dioxide Anion Gap BUN Creatinine Creat Clearance w eGFR POC Glucometer 236.49121 400.15482 Random Glucose Lactic Acid Calcium Phosphorus Magnesium Total Bilirubin AST ALT Alkaline Phosphatase Creatine Kinase 787 H Creatine Kinase Index 6.0 H CK-MB (CK-2) 47.9 H Troponin I Total Protein Albumin Folate Folate Hemolysate Random Vancomycin Vancomycin Pre-Dose Crossmatch ASSESSMENT AND PLAN: Gram Positive Bacteremia Sepsis Acute Kidney Injury - r/o Hepato-Renal Syndrome Thrombocytopenia Coagulopathy Liver Cirrhosis Ascites s/p Large Volume Paracentesis r/o GI Bleed h/o Esophageal Varices HCC s/p TACE Acute NSTEMI CAD HTN - HD per Renal - Broad ABX coverage - Noted albumin - Strict monitor urine output, creatinine - For refractory shock: hydrocortisone and fludrocortisone - Follow repeat echocardiogram - Monitor CBC, coags - Normal transfusion thresholds - Protonix, octreotide per GI recommendations - NPO for now - Possible transfer to tertiary care center - Condition critical / prognosis guarded - ICU monitoring Dr Hdz Critical care time spent in reviewing chart, evaluating patient and formulating plan 38 min
[2018-02-23] MEDS: NOREPINEPHRINE BITARTRATE 8,000 MCG in SODIUM CHLORIDE 0.45% 992 ML IV SCH (14:00)
[2018-02-23] MEDS: HYDROCORTISONE SOD SUCCINATE 100 MG/2 ML VIAL IVPB SCH ×2 (14:30→22:23)
--- NOTE | 2018-02-23 14:52 | PROC ---
Central Line Insertion Indication: Vasopressor Risks and Benefits Explained: Yes Consent on Chart: Yes Anesthesia: 1% Lidocaine Sterile Technique: Yes Ultrasound Guided Assistance: Yes Position: Right Internal Jugular Post Insertion: Yes: Chest X-Ray Ordered Sterile Dressing Applied: Yes
--- NOTE | 2018-02-23 14:53 | PROC ---
Central Line Insertion Indication: Other (Need for urgent dialysis) Risks and Benefits Explained: Yes Consent on Chart: Yes (Obtained by Dr Faith) Central Line: Dialysis Cath, Tri Lumen Anesthesia: 2% Lidocaine Sterile Technique: Yes Ultrasound Guided Assistance: Yes Position: Left Femoral Post Insertion: Yes: Other (Pelvic xray ordered for confirmation) Sterile Dressing Applied: Yes Remarks: A left femoral dialysis catheter was placed for urgent dialysis. Consent was obtained from the patient's by Dr Faith. The site was prepped and draped in a sterile fashion. The catheter was placed under ultrasound guidance on the first attempt. There were no complications noted during the procedure, and the patient tolerated catheter placement well. An xray was ordered to confirm placement of the catheter in the left femoral vein. The procedure was supervised by Dr Hdz and assisted by Dr Villeda. Katlin Smith PGY1
--- NOTE | 2018-02-23 14:57 | PN ---
Physical Exam: SUBJECTIVE: - Became bradycardic to 40's, MAP 59. HR decreased to 34 with O2 sats in 70's. - Went into PEA arrest. Code called, CPR started - Received atropine x1, epinephrine x2 - ROSC achieved after 6 minutes - Intubated, R fem central line placed. Norepinephrine started, vasopressin started - Vasopressin d/c'd. Dopamine started. - Potassium to 6.2 overnight, treated with calcium/insulin/dextrose OBJECTIVE: Vital Signs Period Temp Pulse Resp BP Sys/Ferrell Pulse Ox Last 24 Hr 97.8 F-99.2 F 38-75 16-28 64-102/43-64 97-99 General: Sedated HEENT: ETT in place. RIJ placed at bedside. NGT placed. Cards: Hypotensive, RRR, no murmur appreciated Pulm: Mechanically ventilated Abd: Soft, mildly distended. Ext: BLE 1+ pitting edema. L foot with dressing in place Neuro: Sedated Laboratory Results - last 24 hr 02/20/18 02/21/18 02/22/18 09:15 07:10 05:30 WBC RBC Hgb Hct 25.9 L MCV MCH MCHC RDW Plt Count MPV Absolute Neuts (auto) Neutrophils % Neutrophils % (Manual) Band Neutrophils % Lymphocytes % Lymphocytes % (Manual) Monocytes % Monocytes % (Manual) Eosinophils % Eosinophils % (Manual) Basophils % Basophils % (Manual) Myelocytes % (Man) Promyelocytes % (Man) Blast Cells % (Manual) Nucleated RBC % Metamyelocytes Hypochromia Toxic Granulation Platelet Estimate Polychromasia Poikilocytosis Anisocytosis Microcytosis Macrocytosis Tear Drop Cells Haptoglobin 138 Anticoagulation Therapy Puncture Site ABG pH ABG pCO2 at Pt Temp ABG pO2 at Pt Temp ABG HCO3 ABG O2 Sat (Measured) ABG O2 Content ABG Base Excess Yousif Test VBG pH POC VBG pCO2 POC VBG pO2 Mixed VBG HCO3 O2 Delivery Device Oxygen Flow Rate Vent Mode Vent Rate Mechanical Rate PEEP Pressure Support Vent Sodium Potassium Chloride Carbon Dioxide Anion Gap BUN Creatinine Creat Clearance w eGFR POC Glucometer Random Glucose Lactic Acid Calcium Phosphorus Magnesium Total Bilirubin AST ALT Alkaline Phosphatase Creatine Kinase Creatine Kinase Index CK-MB (CK-2) Troponin I Total Protein Albumin Folate 2307 Folate Hemolysate 597.4 Random Vancomycin Vancomycin Pre-Dose Blood Type A POSITIVE Antibody Screen Negative Crossmatch See Detail 02/22/18 02/22/18 02/22/18 12:30 17:08 19:30 WBC RBC Hgb Hct MCV MCH MCHC RDW Plt Count MPV Absolute Neuts (auto) Neutrophils % Neutrophils % (Manual) Band Neutrophils % Lymphocytes % Lymphocytes % (Manual) Monocytes % Monocytes % (Manual) Eosinophils % Eosinophils % (Manual) Basophils % Basophils % (Manual) Myelocytes % (Man) Promyelocytes % (Man) Blast Cells % (Manual) Nucleated RBC % Metamyelocytes Hypochromia Toxic Granulation Platelet Estimate Polychromasia Poikilocytosis Anisocytosis Microcytosis Macrocytosis Tear Drop Cells Haptoglobin Anticoagulation Therapy Puncture Site ABG pH ABG pCO2 at Pt Temp ABG pO2 at Pt Temp ABG HCO3 ABG O2 Sat (Measured) ABG O2 Content ABG Base Excess Yousif Test VBG pH POC VBG pCO2 POC VBG pO2 Mixed VBG HCO3 O2 Delivery Device Oxygen Flow Rate Vent Mode Vent Rate Mechanical Rate PEEP Pressure Support Vent Sodium 129 L Potassium 5.6 H Chloride 105 Carbon Dioxide 17 L Anion Gap 7 L BUN 65 H Creatinine 2.9 H Creat Clearance w eGFR 22.31 POC Glucometer [phone] Random Glucose 183 H Lactic Acid Calcium 8.0 L Phosphorus Magnesium Total Bilirubin 5.3 H AST 150 H ALT 31 Alkaline Phosphatase 164 H Creatine Kinase Creatine Kinase Index 4.3 CK-MB (CK-2) 35.7 H Troponin I 20.10 H* Total Protein 7.2 Albumin 2.9 L Folate Folate Hemolysate Random Vancomycin Vancomycin Pre-Dose Blood Type Antibody Screen Crossmatch 02/22/18 02/22/18 02/22/18 20:35 21:44 23:45 WBC RBC Hgb Hct MCV MCH MCHC RDW Plt Count MPV Absolute Neuts (auto) Neutrophils % Neutrophils % (Manual) Band Neutrophils % Lymphocytes % Lymphocytes % (Manual) Monocytes % Monocytes % (Manual) Eosinophils % Eosinophils % (Manual) Basophils % Basophils % (Manual) Myelocytes % (Man) Promyelocytes % (Man) Blast Cells % (Manual) Nucleated RBC % Metamyelocytes Hypochromia Toxic Granulation Platelet Estimate Polychromasia Poikilocytosis Anisocytosis Microcytosis Macrocytosis Tear Drop Cells Haptoglobin Anticoagulation Therapy No Result Required. Puncture Site No Result Required. ABG pH 7.22 L* ABG pCO2 at Pt Temp 33.0 L ABG pO2 at Pt Temp 109.0 H ABG HCO3 13.2 L* ABG O2 Sat (Measured) 97.4 ABG O2 Content 10.6 L ABG Base Excess -13.1 L* Yousif Test No Result Required. VBG pH POC VBG pCO2 POC VBG pO2 Mixed VBG HCO3 O2 Delivery Device No Result Required. Oxygen Flow Rate No Result Required. Vent Mode No Result Required. Vent Rate No Result Required. Mechanical Rate No Result Required. PEEP Pressure Support Vent No Result Required. Sodium Potassium Chloride Carbon Dioxide Anion Gap BUN Creatinine Creat Clearance w eGFR POC Glucometer [phone] Random Glucose Lactic Acid Calcium Phosphorus Magnesium Total Bilirubin AST ALT Alkaline Phosphatase Creatine Kinase Creatine Kinase Index CK-MB (CK-2) Troponin I Total Protein Albumin Folate Folate Hemolysate Random Vancomycin 49.1 H* Vancomycin Pre-Dose Blood Type Antibody Screen Crossmatch 02/22/18 02/23/18 02/23/18 23:45 01:15 01:15 WBC 25.2 H RBC 2.61 L Hgb 7.8 L Hct 24.1 L MCV 92.6 MCH 29.8 MCHC 32.1 RDW 21.9 H Plt Count 184 D MPV 8.3 Absolute Neuts (auto) 23.6 H Neutrophils % No Result Required. Neutrophils % (Manual) 81.0 Band Neutrophils % 13.0 Lymphocytes % No Result Required. Lymphocytes % (Manual) 3.0 L D Monocytes % Monocytes % (Manual) 3 L Eosinophils % Eosinophils % (Manual) Basophils % Basophils % (Manual) Myelocytes % (Man) Promyelocytes % (Man) Blast Cells % (Manual) Nucleated RBC % 0 Metamyelocytes Hypochromia Toxic Granulation Platelet Estimate Polychromasia Poikilocytosis Anisocytosis Microcytosis Macrocytosis Tear Drop Cells Haptoglobin Anticoagulation Therapy Puncture Site ABG pH ABG pCO2 at Pt Temp ABG pO2 at Pt Temp ABG HCO3 ABG O2 Sat (Measured) ABG O2 Content ABG Base Excess Yousif Test VBG pH 7.16 L* D POC VBG pCO2 43.5 POC VBG pO2 35.8 D Mixed VBG HCO3 14.9 L* O2 Delivery Device Oxygen Flow Rate Vent Mode Vent Rate Mechanical Rate PEEP Pressure Support Vent Sodium 128 L Potassium 6.2 H* Chloride 101 Carbon Dioxide 16 L Anion Gap 12 BUN 67 H Creatinine 3.4 H Creat Clearance w eGFR 18.57 POC Glucometer Random Glucose 261 H Lactic Acid Calcium 7.8 L Phosphorus 7.1 H Magnesium 2.4 Total Bilirubin 5.4 H AST 249 H ALT 56 Alkaline Phosphatase 152 H Creatine Kinase 813 H Creatine Kinase Index 6.1 H* CK-MB (CK-2) 50.4 H Troponin I 22.90 H* Total Protein 7.2 Albumin 3.4 Folate Folate Hemolysate Random Vancomycin Vancomycin Pre-Dose Blood Type Antibody Screen Crossmatch 02/23/18 02/23/18 02/23/18 01:15 04:47 05:30 WBC RBC Hgb Hct MCV MCH MCHC RDW Plt Count MPV Absolute Neuts (auto) Neutrophils % Neutrophils % (Manual) Band Neutrophils % Lymphocytes % Lymphocytes % (Manual) Monocytes % Monocytes % (Manual) Eosinophils % Eosinophils % (Manual) Basophils % Basophils % (Manual) Myelocytes % (Man) Promyelocytes % (Man) Blast Cells % (Manual) Nucleated RBC % Metamyelocytes Hypochromia Toxic Granulation Platelet Estimate Polychromasia Poikilocytosis Anisocytosis Microcytosis Macrocytosis Tear Drop Cells Haptoglobin Anticoagulation Therapy Puncture Site ABG pH ABG pCO2 at Pt Temp ABG pO2 at Pt Temp ABG HCO3 ABG O2 Sat (Measured) ABG O2 Content ABG Base Excess Yousif Test VBG pH POC VBG pCO2 POC VBG pO2 Mixed VBG HCO3 O2 Delivery Device Oxygen Flow Rate Vent Mode Vent Rate Mechanical Rate PEEP Pressure Support Vent Sodium Potassium Chloride Carbon Dioxide Anion Gap BUN Creatinine Creat Clearance w eGFR POC Glucometer [phone] Random Glucose Lactic Acid 3.6 H* Calcium Phosphorus Magnesium Total Bilirubin AST ALT Alkaline Phosphatase Creatine Kinase Creatine Kinase Index CK-MB (CK-2) Troponin I Total Protein Albumin Folate Folate Hemolysate Random Vancomycin Vancomycin Pre-Dose 20.5 Blood Type Antibody Screen Crossmatch 02/23/18 02/23/18 02/23/18 05:30 05:30 06:30 WBC 25.7 H RBC 2.62 L Hgb 7.7 L Hct 23.9 L MCV 91.0 MCH 29.3 MCHC 32.2 RDW 20.4 H Plt Count 157 MPV 8.4 Absolute Neuts (auto) 23.6 H Neutrophils % 92.0 H Neutrophils % (Manual) 88.7 H Band Neutrophils % 4.1 Lymphocytes % 2.1 L D Lymphocytes % (Manual) 3.1 L Monocytes % 5.7 Monocytes % (Manual) 2 L Eosinophils % 0.0 D Eosinophils % (Manual) 0.0 D Basophils % 0.2 Basophils % (Manual) 0.0 Myelocytes % (Man) 0 Promyelocytes % (Man) 1 D Blast Cells % (Manual) 0 Nucleated RBC % 0 Metamyelocytes 1 D Hypochromia 0 Toxic Granulation 1+ Platelet Estimate Normal Polychromasia 1+ Poikilocytosis 1+ Anisocytosis 2+ Microcytosis 2+ Macrocytosis 0 Tear Drop Cells 1+ Haptoglobin Anticoagulation Therapy No Result Required. Puncture Site Arterial line ABG pH 7.28 L ABG pCO2 at Pt Temp 26.0 L D ABG pO2 at Pt Temp 93.2 ABG HCO3 11.8 L* ABG O2 Sat (Measured) 96.4 ABG O2 Content 10.6 L ABG Base Excess -13.5 L* Yousif Test No Result Required. VBG pH POC VBG pCO2 POC VBG pO2 Mixed VBG HCO3 O2 Delivery Device No Result Required. Oxygen Flow Rate No Result Required. Vent Mode No Result Required. Vent Rate 500 Mechanical Rate No Result Required. PEEP 5.0 Pressure Support Vent No Result Required. Sodium 128 L Potassium 5.7 H Chloride 99 Carbon Dioxide 14 L Anion Gap 16 BUN 69 H Creatinine 3.5 H Creat Clearance w eGFR 17.96 POC Glucometer Random Glucose 304 H* Lactic Acid Calcium 7.7 L Phosphorus 6.7 H Magnesium 2.3 Total Bilirubin 5.3 H AST 415 H ALT 105 H Alkaline Phosphatase 146 H Creatine Kinase Creatine Kinase Index CK-MB (CK-2) Troponin I Total Protein 7.1 Albumin 3.5 Folate Folate Hemolysate Random Vancomycin Vancomycin Pre-Dose Blood Type Antibody Screen Crossmatch 02/23/18 02/23/18 02/23/18 06:52 10:50 11:07 WBC RBC Hgb Hct MCV MCH MCHC RDW Plt Count MPV Absolute Neuts (auto) Neutrophils % Neutrophils % (Manual) Band Neutrophils % Lymphocytes % Lymphocytes % (Manual) Monocytes % Monocytes % (Manual) Eosinophils % Eosinophils % (Manual) Basophils % Basophils % (Manual) Myelocytes % (Man) Promyelocytes % (Man) Blast Cells % (Manual) Nucleated RBC % Metamyelocytes Hypochromia Toxic Granulation Platelet Estimate Polychromasia Poikilocytosis Anisocytosis Microcytosis Macrocytosis Tear Drop Cells Haptoglobin Anticoagulation Therapy Puncture Site ABG pH ABG pCO2 at Pt Temp ABG pO2 at Pt Temp ABG HCO3 ABG O2 Sat (Measured) ABG O2 Content ABG Base Excess Yousif Test VBG pH POC VBG pCO2 POC VBG pO2 Mixed VBG HCO3 O2 Delivery Device Oxygen Flow Rate Vent Mode Vent Rate Mechanical Rate PEEP Pressure Support Vent Sodium Potassium Chloride Carbon Dioxide Anion Gap BUN Creatinine Creat Clearance w eGFR POC Glucometer [phone] Random Glucose Lactic Acid Calcium Phosphorus Magnesium Total Bilirubin AST ALT Alkaline Phosphatase Creatine Kinase 787 H Creatine Kinase Index 6.0 H CK-MB (CK-2) 47.9 H Troponin I 26.80 H* Total Protein Albumin Folate Folate Hemolysate Random Vancomycin Vancomycin Pre-Dose Blood Type Antibody Screen Crossmatch Active Medications Generic Name Dose Route Start Last Admin Trade Name Freq PRN Reason Stop Dose Admin Albumin Human 12.5 gm 02/23/18 12:00 Albumin Human 25% IVPB 02/23/18 13:31 Q30M J CARLOS Atorvastatin Calcium 80 mg 02/21/18 22:00 02/23/18 06:09 Lipitor - PO Not Given HS J CARLOS Chlorhexidine Gluconate 1 applic 02/21/18 22:00 02/22/18 22:11 Hibiclens For Decolonization - TP 1 applic HS J CARLOS Administration Collagenase 1 applic 02/18/18 10:00 02/23/18 12:38 Santyl - TP 1 applic DAILY J CARLOS Administration Protocol Hydrocortisone Sodium Succinate 50 mg 02/23/18 13:00 02/23/18 14:30 Solu-Cortef - IVPB 50 mg Q6H J CARLOS Administration Octreotide Acetate 1,200 mcg/ 500 mls @ 20.83 mls/hr 02/21/18 19:45 02/22/18 20:35 Dextrose IVPB 20.83 mls/hr ASDIR J CARLOS Administration Protocol 50 MCG/HR Cefepime HCl 1 gm/ Dextrose 100 mls @ 100 mls/hr 02/21/18 20:17 02/23/18 10: 49 IVPB 100 mls/hr Q12H J CARLOS Administration Protocol Dopamine HCl/Dextrose 400,000 mcg in 250 mls @ 21.96 mls/hr 02/22/18 23:45 23:45 Dopamine 400 Mg/D5w - IVPB 20 mcg/kg/min TITR J CARLOS 87.839 mls/hr Administration Protocol 5 MCG/KG/MIN Midazolam HCl 100 mg/ Sodium 100 mls @ 5 mls/hr 02/22/18 23:45 02/22/18 23:45 Chloride IVPB 5 mg/hr TITR J CARLOS 5 mls/hr Administration Protocol 5 MG/HR Sodium Chloride 1,000 mls @ 125 mls/hr 02/23/18 12:00 02/23/18 12:42 Normal Saline - IV 125 mls/hr ASDIR J CARLOS Administration Sodium Chloride 250 mls @ 3,000 mls/hr 02/23/18 11:56 Normal Saline - IV 02/24/18 11:56 PRN PRN Hypotension during Dialysis Norepinephrine Bitartrate 8, 1,000 mls @ 150 mls/hr 02/23/18 14:30 000 mcg/ Sodium Chloride IV TITR J CARLOS Protocol 20 MCG/MIN Insulin Aspart 1 vial 02/21/18 16:30 02/23/18 11:00 Novolog Vial Sliding Scale - SQ 10 unit ACHS J CARLOS Administration Protocol Insulin Detemir 10 units 02/17/18 22:00 02/23/18 06:43 Levemir Vial SQ 10 units HS J CARLOS Administration Lactulose 20 gm 02/17/18 22:00 02/23/18 06:10 Cephulac (Oral Use) PO Not Given TID J CARLOS Lidocaine 1 patch 02/22/18 10:00 02/23/18 12:37 Lidoderm Patch - TP 1 patch DAILY J CARLOS Administration Miscellaneous 1 each 02/22/18 22:00 02/23/18 04:04 Lidoderm Patch Removal MC Not Given DAILY@2200 J CARLOS Multivitamins/Minerals/Vitamin C 1 tab 02/18/18 10:00 02/23/18 12:38 Tab-A-Vit - PO Not Given DAILY J CARLOS Mupirocin 1 applic 02/21/18 22:00 02/23/18 12:37 Bactroban Ointment (For Decolonization) - NS 02/26/18 21:59 1 applic BID J CARLOS Administration Nadolol 20 mg 02/18/18 10:00 02/23/18 12:37 Corgard - PO Not Given DAILY J CARLOS Pantoprazole Sodium 40 mg 02/22/18 10:00 02/23/18 11:30 Protonix Iv IVPUSH 40 mg DAILY J CARLOS Administration Polyethylene Glycol 17 gm 02/21/18 10:00 02/23/18 12:38 Miralax (For Daily Use) - PO Not Given DAILY J CARLOS Ranolazine 1,000 mg 02/17/18 22:00 02/23/18 12:38 Ranexa - PO Not Given BID J CARLOS Rifaximin 550 mg 02/17/18 22:00 02/23/18 12:38 Xifaxan - PO Not Given BID J CARLOS Senna 1 tab 02/21/18 22:00 02/23/18 04:08 Senna - PO Not Given HS J CARLOS ASSESSMENT/PLAN: Logan Schaeffer is a 58yo man with a PMH of HTN, HLD, CAD, chronic anemia, HERNANDEZ , HDCC, ascites, esophageal varicies, IDDM, PVD, diabetic foot ulcers who was transferred to the ICU on 02/21 with an NSTEMI and hypotension to the 60's following paracentesis with 9L removed. Overnight, he became bradycardic and hypotensive, then went into PEA arrest. ROSC was achieved with 6 minutes of CPR, he was intubated, and a central line was placed due to need for pressors. Today, he has become aneuric and requires urgent dialysis. Mr Schaeffer remains in critical condition in the ICU, and he will likely be transferred to a tertiary care center today. Neuro: - Versed drip for sedation CV: - NSTEMI, possibly due to demand ischemia with hypotension to the 60's. Troponins continue to increase. - No heparin or plavix due to guaiac positive stool - PEA arrest overnight with ROSC. Now requiring pressors. - Currently maintaining MAPs of at least 65 with norepinephrine at 30 and dopaine at 20. - Will likely not reduce pressors until urgent dialysis is completed. - h/o HTN, HLD, CAD. Continue home ASA, statin, ranolazine via NGT. - Holding home lisinopril, lasix, spironolactone in the setting of hypotension - Hypotension initially most likely due to large volume paracentesis and intravascular volume depletion. - Albumin 25% q4hr for fluid resuscitation. IVF@125 overnight. - Hydrocortisone 50mg Q6hr, fludrocortisone 50mg daily - d/c midodrine now that pressors have been started. - Repeat echo yesterday - no acute wall motion abnormalities noted, but technically difficult and limited study Pulm: - Intubated and mechanically ventilated - Maintain sats over 90 Heme: - Chronic anemia - Hematology following - Monitor daily CBC GI: - h/o HCC, HERNANDEZ, ascites, esophageal varicies - NGT placed for meds. Xray pending to confirm placement. - Dr Wilson consulted for +guaiac stool. - Continue albumin per Dr Wilson. Continue octreotide drip due to possibility of abdominal bleeding following paracentesis. - Continue lactulose, rifamixin, natolol, pantoprazole - Encourage use of lactulose, miralax, senna Renal: - Holding diuretics and lisinopril due to hypotension - Worsening kidney function. Acidotic, Cr to 3.5 from 2.9 - Worsening hyperkalemia 5.2 yesterday morning to 5.5 in afternoon. Kayexelate given, but increased to 6.2 overnight. Calcium/insulin/dextrose given. - Per Dr Faith, will need urgent dialysis - Trialysis catheter placed in left femoral vein. Xray pending to confirm placement. ID: - Blood and urine cultures sent - BCx positive - One with staph, one with gram positive cocci in clusters - Has been afebrile - ID following - started on emperic vancomycin and cefepime Endo: - IDDM - Continue insulin Musc: - Continue wound care to diabetic foot ulcers PPx: - Holding heparin due to guaiac positive stool; no LE compression due to PVD - Pantoprazole FEN: - NPO - Albumin 25% Q4hr, LR@125 - Replete lytes PRN Dispo: - Monitor in ICU. - Transfer to [facility] refused given poor overall condition and risk of transfer. Seen and discussed with Dr Hdz. Katlin Smith PGY1 Visit type - Emergency Visit Emergency Visit: No - New Patient This patient is new to me today: No - Critical Care Critical Care patient: Yes Total Critical Care Time (in minutes): 45 Critical Care Statement: The care of this patient involved high complexity decision making to prevent further life threatening deterioration of the patient 's condition and/or to evaluate & treat vital organ system(s) failure or risk of failure.
--- NOTE | 2018-02-23 15:58 | PN ---
Progress Note (short form) - Note Progress Note: s/p code last night now intubated and sedated on pressors and sedation Vital Signs Period Temp Pulse Resp BP Sys/Ferrell Pulse Ox Last 24 Hr 97.8 F-99.2 F 38-75 16-28 64-102/43-64 97-99 cor-rrr lungs decreased bs at bases abd soft,nt ext trace edema dressing intact CBC, BMP 02/23/18 05:30 02/23/18 05:30 Microbiology 02/21/18 18:50 Blood - Peripheral Venous Blood Culture - Preliminary Staphylococcus Latex Coag Pos 02/21/18 17:39 Urine - Urine Shelley Urine Culture - Final NO GROWTH OBTAINED 02/21/18 18:00 Blood - Peripheral Venous Blood Culture - Preliminary Pending Organism 02/19/18 13:00 Urine - Urine Clean Catch Urine Culture - Final Contaminated: Please Repeat a/p s/p code sepsis- gram positive bacteremia- on vancomycin by levels, cefepime to continue repeat blood cultures pending, check echo r/o endocarditis redose vancomycin after HD nstemi hepatoma history of MRSA osteo- MRI this admission no osteo vancomycin check levels in am cefepilme adjusted for SHANEKA/ckd to start HD today awaiting transfer to [facility] overall prognosis grim Problem List - Problems (1) Diabetic foot ulcer associated with type 2 diabetes mellitus Code(s): E11.621 - TYPE 2 DIABETES MELLITUS WITH FOOT ULCER; L97.509 - NON- PRESSURE CHRONIC ULCER OTH PRT UNSP FOOT W UNSP SEVERITY Qualifiers: Laterality: left (2) Ascites Code(s): R18.8 - OTHER ASCITES Qualifiers: Ascites type: malignant Qualified Code(s): R18.0 - Malignant ascites (3) Hepatocellular carcinoma Code(s): C22.0 - LIVER CELL CARCINOMA
[2018-02-23] MEDS: FLUDROCORTISONE ACETATE 0.1 MG TABLET (FP) PO SCH (16:15)
[2018-02-23] MEDS: ALBUMIN HUMAN 25% 12.5 GM/50 ML VIAL IVPB SCH ×4 (17:30→19:00)
[2018-02-23] MEDS: OCTREOTIDE ACETATE 1,200 MCG in DEXTROSE 5%-WATER - 488 ML IVPB SCH (22:17)
[2018-02-23] MEDS: CHLORHEXIDINE GLUCONATE 4% CLEANSER FOR DECOLONIZATION TP SCH (22:18)
[2018-02-23] MEDS ORDERED: RANOLAZINE E.R. 500 MG TABLET (FP) ONE (22:21)
[2018-02-23] MEDS ORDERED: DOPAMINE IVPB ONE (22:21)
[2018-02-23] MEDS ORDERED: DEXTROSE IVPB ONE (22:21)
[2018-02-23] MEDS: CHLORHEXIDINE GLUCONATE 0.12% 15ML CUP MM SCH (22:23)
[2018-02-23] MEDS: MIDAZOLAM 100 MG in SODIUM CHLORIDE 100 ML IVPB SCH (23:56)
[2018-02-23] MEDS: DOPAMINE 400 MG/D5W - 400,000 MCG/250 ML INFUS.BAG IVPB SCH (23:56)
[2018-02-24] MEDS: HYDROCORTISONE SOD SUCCINATE 100 MG/2 ML VIAL IVPB SCH ×4 (02:00→22:17)
[2018-02-24 06:25] LABS: BASO % 0.1 % (0-2.0); HEMATOCRIT 23.6 % (35.4-49); HEMOGLOBIN 7.6 GM/dL (11.7-16.9); LYMPH % 3.1 % (8-40); MCH 29.3 pg (25.7-33.7); MCHC 32.3 g/dl (32.0-35.9); MEAN CELL VOLUME 90.8 fl (80-96); MEAN PLT VOLUME 7.7 fl (7.5-11.1); MONO % 5.1 % (3.8-10.2); NEUT % 91.7 % (42.8-82.8); PLATELET COUNT 129 K/MM3 (134-434); RDW 21.3 % (11.9-15.9); WHITE BLOOD COUNT 20.4 K/mm3 (4.0-10.0)
[2018-02-24] MEDS: INSULIN SLIDING SCALE (NOVOLOG) 1 VIAL SQ SCH ×4 (06:45→22:15)
[2018-02-24] MEDS: LACTULOSE 20 GM/30 ML UDC (FOR ORAL USE ONLY) PO SCH ×2 (06:45→13:23)
[2018-02-24 08:07] LABS: BLOOD UREA NITROGEN 58 mg/dL (7-18); CREATININE 3.1 mg/dL (0.55-1.3); GLUCOSE,RANDOM 272 mg/dL (74-106)
[2018-02-24 08:08] LABS: ALK PHOS 142 U/L (45-117); ANION GAP 12 MMOL/L (8-16); BILIRUBIN,TOTAL 4.6 mg/dL (0.2-1); CALCIUM 7.3 mg/dL (8.5-10.1); CHLORIDE 98 mmol/L (98-107); CO2 18 mmol/L (21-32); MAGNESIUM 1.9 mg/dL (1.8-2.4); PHOSPHOROUS 5.5 mg/dL (2.5-4.9); POTASSIUM 4.6 mmol/L (3.5-5.1); SGOT/AST 1013 U/L (15-37); SGPT/ALT 342 U/L (13-61); SODIUM 128 mmol/L (136-145); TOT PROT 6.5 g/dl (6.4-8.2)
[2018-02-24] MEDS ORDERED: MAGNESIUM SULF 50% (8.12 MEQ/2 ML-1 GM VIAL) IVPB ONE (08:23)
[2018-02-24] MEDS ORDERED: VANCOMYCIN 1 GRAM (PRE-DOCKED) 1,000 MG/250 ML BAG IVPB ONE (08:35)
[2018-02-24] MEDS ORDERED: FUROSEMIDE 100 MG/10 ML INJECTABLE VIAL IVPUSH ONE (08:55)
--- NOTE | 2018-02-24 09:00 | PN ---
Progress Note, Physician History of Present Illness: events noted transferred to icu--positive troponin and hypotension cardiac arrest --on vent - Current Medication List Current Medications: Active Medications Atorvastatin Calcium (Lipitor -) 80 mg PO HS J CARLOS Last Admin: 02/23/18 23:58 Dose: Not Given Chlorhexidine Gluconate (Hibiclens For Decolonization -) 1 applic TP HS J CARLOS Last Admin: 02/23/18 22:18 Dose: 1 applic Chlorhexidine Gluconate (Peridex -) 15 ml MM BID J CARLOS Last Admin: 02/23/18 22:23 Dose: 15 ml Collagenase (Santyl -) 1 applic TP DAILY J CARLOS; Protocol Last Admin: 02/23/18 12:38 Dose: 1 applic Fludrocortisone Acetate (Florinef -) 0.05 mg PO DAILY J CARLOS Last Admin: 02/23/18 16:15 Dose: Not Given Furosemide (Lasix Injection -) 100 mg IVPUSH ONCE ONE Stop: 02/24/18 08:56 Hydrocortisone Sodium Succinate (Solu-Cortef -) 50 mg IVPB Q6H J CARLOS Last Admin: 02/24/18 06:49 Dose: 50 mg Octreotide Acetate 1,200 mcg/ (Dextrose) 500 mls @ 20.83 mls/hr IVPB ASDIR J CARLOS ; Protocol Last Admin: 02/23/18 22:17 Dose: 20.83 mls/hr Dopamine HCl/Dextrose (Dopamine 400 Mg/D5w -) 400,000 mcg in 250 mls @ 21.96 mls/hr IVPB TITR J CARLOS; Protocol Last Titration: 02/24/18 06:52 Dose: 13 mcg/kg/min, 57.095 mls/hr Midazolam HCl 100 mg/ Sodium (Chloride) 100 mls @ 5 mls/hr IVPB TITR J CARLOS; Protocol Last Admin: 02/23/18 23:56 Dose: 10 mg/hr, 10 mls/hr Sodium Chloride (Normal Saline -) 250 mls @ 3,000 mls/hr IV PRN PRN PRN Reason: Hypotension during Dialysis Stop: 02/24/18 11:56 Norepinephrine Bitartrate 8, (000 mcg/ Sodium Chloride) 1,000 mls @ 150 mls/hr IV TITR J CARLOS; Protocol Last Titration: 02/24/18 06:52 Dose: 13 mcg/min, 97.5 mls/hr Cefepime HCl (Maxipime 1 Gm Premix Ivpb) 1 gm in 50 mls @ 100 mls/hr IVPB Q24H J CARLOS; Protocol Sodium Chloride (Normal Saline -) 250 mls @ 3,000 mls/hr IV PRN PRN PRN Reason: Hypotension during Dialysis Stop: 02/24/18 23:13 Vancomycin HCl (Vancomycin (Pre-Docked)) 1,000 mg in 250 mls @ 166.667 mls/hr IVPB ONCE ONE; Protocol Stop: 02/24/18 10:04 Insulin Aspart (Novolog Vial Sliding Scale -) 1 vial SQ ACHS [facility]; Protocol Insulin Detemir (Levemir Vial) 10 units SQ [facility] Last Admin: 02/23/18 23:55 Dose: 10 units Lactulose (Cephulac (Oral Use)) 20 gm PO TID [facility] Last Admin: 02/24/18 06:45 Dose: Not Given Lidocaine (Lidoderm Patch -) 1 patch TP DAILY [facility] Last Admin: 02/23/18 12:37 Dose: 1 patch Miscellaneous (Lidoderm Patch Removal) 1 each MC DAILY@2200 [facility] Last Admin: 02/23/18 22:18 Dose: 1 each Multivitamins/Minerals/Vitamin C (Tab-A-Vit -) 1 tab PO DAILY [facility] Last Admin: 02/23/18 12:38 Dose: Not Given Mupirocin (Bactroban Ointment (For Decolonization) -) 1 applic NS BID [facility] Stop: 02/26/18 21:59 Last Admin: 02/23/18 22:18 Dose: 1 applic Nadolol (Corgard -) 20 mg PO DAILY [facility] Last Admin: 02/23/18 12:37 Dose: Not Given Pantoprazole Sodium (Protonix Iv) 40 mg IVPUSH DAILY [facility] Last Admin: 02/23/18 11:30 Dose: 40 mg Polyethylene Glycol (Miralax (For Daily Use) -) 17 gm PO DAILY [facility] Last Admin: 02/23/18 12:38 Dose: Not Given Ranolazine (Ranexa -) 1,000 mg PO BID [facility] Last Admin: 02/23/18 23:56 Dose: Not Given Rifaximin (Xifaxan -) 550 mg PO BID [facility] Last Admin: 02/23/18 23:58 Dose: Not Given Senna (Senna -) 1 tab PO [facility] Last Admin: 02/23/18 23:58 Dose: Not Given - Objective Vital Signs: Vital Signs Temperature 99.8 F H 02/24/18 06:00 Pulse Rate 60 02/24/18 06:00 Respiratory Rate 22 H 02/24/18 08:22 Blood Pressure 108/71 02/24/18 06:00 O2 Sat by Pulse Oximetry (%) 97 02/23/18 20:34 Cardiovascular: Yes: S1, S2 Respiratory: Yes: Mechanically Ventilated Gastrointestinal: Yes: Normal Bowel Sounds, Soft, Ascites Neurological: Yes: Unresponsive Labs: CBC, BMP 02/24/18 05:30 02/24/18 05:30 INR, PTT INR 1.51 (0.83-1.09) H 02/22/18 05:30 Problem List - Problems (1) Non-ST elevated myocardial infarction Assessment/Plan: -Follow cardiac enzymes - cardio consult - Follow trends - normal EF on echo 02/20 Troponin, BNP 02/23/18 02/23/18 10:50 19:20 Troponin I 26.80 H* 26.60 H* Code(s): I21.4 - NON-ST ELEVATION (NSTEMI) MYOCARDIAL INFARCTION (2) Ascites Assessment/Plan: -s/p tap - gi on case - holding diuretics in setting of hypotension as above - on octreotide, IV protonix - transfer to [facility] NOT ACCEPTED Code(s): R18.8 - OTHER ASCITES Qualifiers: Ascites type: malignant Qualified Code(s): R18.0 - Malignant ascites (3) Hepatoma Assessment/Plan: per gi Code(s): C22.0 - LIVER CELL CARCINOMA (4) Hypotension Assessment/Plan: maybe due to paracentesis monitor cultures done iv abx Code(s): I95.9 - HYPOTENSION, UNSPECIFIED (5) Diabetes mellitus, insulin dependent (IDDM), uncontrolled Assessment/Plan: bgm Code(s): E10.65 - TYPE 1 DIABETES MELLITUS WITH HYPERGLYCEMIA (6) Elevated troponin I level Assessment/Plan: as above Code(s): R74.8 - ABNORMAL LEVELS OF OTHER SERUM ENZYMES (7) Hyponatremia Assessment/Plan: -128 -Renal on board Code(s): E87.1 - HYPO-OSMOLALITY AND HYPONATREMIA
[2018-02-24 09:11] LABS: ARTERIAL BLD GAS O2 SATURATION 94.3 % (90-98.9); ARTERIAL BLOOD GAS BASE EXCESS -8.3 meq/l (-2-2); ARTERIAL BLOOD GAS PCO2 28.5 mmHg (35-45); ARTERIAL BLOOD GAS PO2 76.1 mmHg (80-100); ARTERIAL BLOOD GAS pH 7.36 (7.35-7.45)
[2018-02-24 09:14] LABS: ALLENS TEST POSITIVE
[2018-02-24] MEDS: COLLAGENASE CLOSTRIDIUM HIST. 30 GRAMS TUBE TP SCH (10:00)
[2018-02-24] MEDS: POLYETHYLENE GLYCOL 3350 119 GM BTL PO SCH (10:20)
[2018-02-24] MEDS: CHLORHEXIDINE GLUCONATE 0.12% 15ML CUP MM SCH ×2 (10:20→22:17)
[2018-02-24 10:28] LABS: ANISOCYTOSIS 1+
[2018-02-24 10:29] LABS: PLATELET ESTIMATE NORMAL
[2018-02-24] MEDS: CEFEPIME HCL/D5W 1 GM/50 ML BAG IVPB SCH (10:37)
[2018-02-24] MEDS: MUPIROCIN 2% TOPICAL OINTMENT FOR DECOLONIZATION NS SCH ×2 (10:38→22:15)
[2018-02-24] MEDS: PANTOPRAZOLE SODIUM 40 MG VIAL IVPUSH SCH (10:40)
[2018-02-24] MEDS: NADOLOL 20 MG TABLET (FP) PO SCH (10:44)
[2018-02-24] MEDS: LIDOCAINE 5% TOPICAL PATCH TP SCH (10:44)
[2018-02-24] MEDS ORDERED: PT OWN MED DRAWER 7, Y5N ONE (11:09)
--- NOTE | 2018-02-24 11:12 | PN ---
Progress Note (short form) - Note Progress Note: Patient seen and examined Intubated , sedated , on pressors. Receiving lasix and making urine Reactive pupils Last Vital Signs Temp Pulse Resp BP Pulse Ox 99.8 F H 60 27 H 108/71 97 02/24/18 06:00 02/24/18 06:00 02/24/18 10:30 02/24/18 06:00 02/23/18 20:34 HEENT:reactiv e pupils Oropharyns- intubated Cor: RSR, No murmurs, No gallops Lungs:diminished breath soubnds Abd: Soft, Normal bowel sounds, No organomegaly, distended, ascites Ext:LE edema-minimal Skin: sacral decubitus ; left foot ulcer CBC, BMP 02/24/18 05:30 02/24/18 05:30 Current Medications Generic Name Dose Route Start Last Admin Trade Name Freq PRN Reason Stop Dose Admin Atorvastatin Calcium 80 mg 02/21/18 22:00 02/23/18 23:58 Lipitor - PO Not Given HS J CARLOS Chlorhexidine Gluconate 1 applic 02/21/18 22:00 02/23/18 22:18 Hibiclens For Decolonization - TP 1 applic HS J CARLOS Administration Chlorhexidine Gluconate 15 ml 02/23/18 22:00 02/23/18 22:23 Peridex - MM 15 ml BID J CARLOS Administration Collagenase 1 applic 02/18/18 10:00 02/23/18 12:38 Santyl - TP 1 applic DAILY J CARLOS Administration Protocol Fludrocortisone Acetate 0.05 mg 02/23/18 16:00 02/23/18 16:15 Florinef - PO Not Given DAILY J CARLOS Hydrocortisone Sodium Succinate 50 mg 02/23/18 13:00 02/24/18 06:49 Solu-Cortef - IVPB 50 mg Q6H J CARLOS Administration Octreotide Acetate 1,200 mcg/ 500 mls @ 20.83 mls/hr 02/21/18 19:45 02/23/18 22:17 Dextrose IVPB 20.83 mls/hr ASDIR J CARLOS Administration Protocol 50 MCG/HR Dopamine HCl/Dextrose 400,000 mcg in 250 mls @ 21.96 mls/hr 02/22/18 23:45 06:52 Dopamine 400 Mg/D5w - IVPB 13 mcg/kg/min TITR J CARLOS 57.095 mls/hr Titration Protocol 5 MCG/KG/MIN Midazolam HCl 100 mg/ Sodium 100 mls @ 5 mls/hr 02/22/18 23:45 02/23/18 23:56 Chloride IVPB 10 mg/hr TITR J CARLOS 10 mls/hr Administration Protocol 5 MG/HR Sodium Chloride 250 mls @ 3,000 mls/hr 02/23/18 11:56 Normal Saline - IV 02/24/18 11:56 PRN PRN Hypotension during Dialysis Norepinephrine Bitartrate 8, 1,000 mls @ 150 mls/hr 02/23/18 14:30 02/24/18 06:52 000 mcg/ Sodium Chloride IV 13 mcg/min TITR J CARLOS 97.5 mls/hr Titration Protocol 20 MCG/MIN Cefepime HCl 1 gm in 50 mls @ 100 mls/hr 02/24/18 10:00 02/24/18 10:37 Maxipime 1 Gm Premix Ivpb IVPB 100 mls/hr Q24H J CARLOS Administration Protocol Sodium Chloride 250 mls @ 3,000 mls/hr 02/23/18 23:13 Normal Saline - IV 02/24/18 23:13 PRN PRN Hypotension during Dialysis Insulin Aspart 1 vial 02/24/18 07:55 Novolog Vial Sliding Scale - SQ ACHS [facility] Protocol Insulin Detemir 10 units 02/17/18 22:00 02/23/18 23:55 Levemir Vial SQ 10 units HS J CARLOS Administration Lactulose 20 gm 02/17/18 22:00 02/24/18 06:45 Cephulac (Oral Use) PO Not Given TID [facility] Lidocaine 1 patch 02/22/18 10:00 02/24/18 10:44 Lidoderm Patch - TP 1 patch DAILY J CARLOS Administration Miscellaneous 1 each 02/22/18 22:00 02/23/18 22:18 Lidoderm Patch Removal MC 1 each DAILY@2200 J CARLOS Administration Multivitamins/Minerals/Vitamin C 1 tab 02/18/18 10:00 02/23/18 12:38 Tab-A-Vit - PO Not Given DAILY [facility] Mupirocin 1 applic 02/21/18 22:00 02/24/18 10:38 Bactroban Ointment (For Decolonization) - NS 02/26/18 21:59 1 applic BID J CARLOS Administration Nadolol 20 mg 02/18/18 10:00 02/24/18 10:44 Corgard - PO Not Given DAILY J CARLOS Pantoprazole Sodium 40 mg 02/22/18 10:00 02/24/18 10:40 Protonix Iv IVPUSH 40 mg DAILY J CARLOS Administration Polyethylene Glycol 17 gm 02/21/18 10:00 02/23/18 12:38 Miralax (For Daily Use) - PO Not Given DAILY J CARLOS Ranolazine 1,000 mg 02/17/18 22:00 02/23/18 23:56 Ranexa - PO Not Given BID J CARLOS Rifaximin 550 mg 02/17/18 22:00 02/23/18 23:58 Xifaxan - PO Not Given BID J CARLOS Senna 1 tab 02/21/18 22:00 02/23/18 23:58 Senna - PO Not Given HS J CARLOS Impression: Advanced liver disease Portal hypertension Sepsis Antibiotics per I.D. CKD/SHANEKA HD Pressor support Anemia Thrombocytopenia Coagulopathy To continue with supportive care for now.
--- NOTE | 2018-02-24 11:55 | PN ---
Progress Note (short form) - Note Progress Note: s/p code now intubated and sedated on pressors s/p HD yesterday Vital Signs Period Temp Pulse Resp BP Sys/Ferrell Pulse Ox Last 24 Hr 98.8 F-100.9 F 53-73 5-29 95-143/54-82 95-97 cor-rrr lungs decreased bs at bases abd soft,+ascites ext +edema CBC, BMP 02/24/18 05:30 02/24/18 05:30 Microbiology 02/23/18 05:30 Blood - Peripheral Venous Blood Culture - Preliminary Presumptive Mrsa (Pbp2a Pos) 02/21/18 18:00 Blood - Peripheral Venous Blood Culture - Preliminary Staphylococcus Latex Coag Pos 02/21/18 18:50 Blood - Peripheral Venous Blood Culture - Preliminary Staphylococcus Latex Coag Pos 02/23/18 05:45 Blood - Peripheral Venous Blood Culture - Preliminary Pending Organism 02/21/18 17:39 Urine - Urine Shelley Urine Culture - Final NO GROWTH OBTAINED 02/19/18 13:00 Urine - Urine Clean Catch Urine Culture - Final Contaminated: Please Repeat cxray-congestion, new RUL infiltrate a/p s/p code sepsis- gram positive bacteremia- on vancomycin by levels repeat blood cultures positive, check echo r/o endocarditis redose vancomycin today NSTEMI hepatoma abnl lfts portal HTN coagulopathy history of MRSA osteo- MRI this admission no osteo new RUL infiltrate- sputum culture, continue cefepime, adjusted for SHANEKA SHANEKA- ?repeat hd today repeat blood cultures in am vancomycin check levels in am cefepime adjusted for SHANEKA/ckd awaiting transfer to [facility] contact isolation overall prognosis grim Problem List - Problems (1) Diabetic foot ulcer associated with type 2 diabetes mellitus Code(s): E11.621 - TYPE 2 DIABETES MELLITUS WITH FOOT ULCER; L97.509 - NON- PRESSURE CHRONIC ULCER OTH PRT UNSP FOOT W UNSP SEVERITY Qualifiers: Laterality: left (2) Ascites Code(s): R18.8 - OTHER ASCITES Qualifiers: Ascites type: malignant Qualified Code(s): R18.0 - Malignant ascites (3) Hepatocellular carcinoma Code(s): C22.0 - LIVER CELL CARCINOMA
[2018-02-24] MEDS: ALBUTEROL SO4 2.5/IPRATROPIUM 0.5 INH SOL 3 ML VIAL.NEB. NEB SCH ×3 (12:34→21:30)
--- NOTE | 2018-02-24 12:36 | PN ---
Progress Note (short form) - Note Progress Note: - Note Progress Note: s: remains intubated on pressors o: Current Medications Generic Name Dose Route Start Last Admin Trade Name Tello PRN Reason Stop Dose Admin Albuterol/Ipratropium 1 amp 02/24/18 12:00 Duoneb - NEB RQID J CARLOS Atorvastatin Calcium 80 mg 02/21/18 22:00 02/23/18 23:58 Lipitor - PO Not Given HS J CARLOS Chlorhexidine Gluconate 1 applic 02/21/18 22:00 02/23/18 22:18 Hibiclens For Decolonization - TP 1 applic HS J CARLOS Administration Chlorhexidine Gluconate 15 ml 02/23/18 22:00 02/23/18 22:23 Peridex - MM 15 ml BID J CARLOS Administration Collagenase 1 applic 02/18/18 10:00 02/23/18 12:38 Santyl - TP 1 applic DAILY J CARLOS Administration Protocol Fludrocortisone Acetate 0.05 mg 02/23/18 16:00 02/23/18 16:15 Florinef - PO Not Given DAILY J CARLOS Hydrocortisone Sodium Succinate 50 mg 02/23/18 13:00 02/24/18 06:49 Solu-Cortef - IVPB 50 mg Q6H J CARLOS Administration Octreotide Acetate 1,200 mcg/ 500 mls @ 20.83 mls/hr 02/21/18 19:45 02/23/18 22:17 Dextrose IVPB 20.83 mls/hr ASDIR J CARLOS Administration Protocol 50 MCG/HR Dopamine HCl/Dextrose 400,000 mcg in 250 mls @ 21.96 mls/hr 02/22/18 23:45 06:52 Dopamine 400 Mg/D5w - IVPB 13 mcg/kg/min TITR J CARLOS 57.095 mls/hr Titration Protocol 5 MCG/KG/MIN Midazolam HCl 100 mg/ Sodium 100 mls @ 5 mls/hr 02/22/18 23:45 02/23/18 23:56 Chloride IVPB 10 mg/hr TITR J CARLOS 10 mls/hr Administration Protocol 5 MG/HR Norepinephrine Bitartrate 8, 1,000 mls @ 150 mls/hr 02/23/18 14:30 02/24/18 06:52 000 mcg/ Sodium Chloride IV 13 mcg/min TITR J CARLOS 97.5 mls/hr Titration Protocol 20 MCG/MIN Cefepime HCl 1 gm in 50 mls @ 100 mls/hr 02/24/18 10:00 02/24/18 10:37 Maxipime 1 Gm Premix Ivpb IVPB 100 mls/hr Q24H J CARLOS Administration Protocol Sodium Chloride 250 mls @ 3,000 mls/hr 02/23/18 23:13 Normal Saline - IV 02/24/18 23:13 PRN PRN Hypotension during Dialysis Insulin Aspart 1 vial 02/24/18 07:55 Novolog Vial Sliding Scale - SQ ACHS J CARLOS Protocol Insulin Detemir 10 units 02/17/18 22:00 02/23/18 23:55 Levemir Vial SQ 10 units HS J CARLOS Administration Lactulose 20 gm 02/17/18 22:00 02/24/18 06:45 Cephulac (Oral Use) PO Not Given TID J CARLOS Lidocaine 1 patch 02/22/18 10:00 02/24/18 10:44 Lidoderm Patch - TP 1 patch DAILY J CARLOS Administration Miscellaneous 1 each 02/22/18 22:00 02/23/18 22:18 Lidoderm Patch Removal MC 1 each DAILY@2200 J CARLOS Administration Multivitamins/Minerals/Vitamin C 1 tab 02/18/18 10:00 02/23/18 12:38 Tab-A-Vit - PO Not Given DAILY J CARLOS Mupirocin 1 applic 02/21/18 22:00 02/24/18 10:38 Bactroban Ointment (For Decolonization) - NS 02/26/18 21:59 1 applic BID J CARLOS Administration Nadolol 20 mg 02/18/18 10:00 02/24/18 10:44 Corgard - PO Not Given DAILY J CARLOS Pantoprazole Sodium 40 mg 02/22/18 10:00 02/24/18 10:40 Protonix Iv IVPUSH 40 mg DAILY J CARLOS Administration Polyethylene Glycol 17 gm 02/21/18 10:00 02/23/18 12:38 Miralax (For Daily Use) - PO Not Given DAILY J CARLOS Ranolazine 1,000 mg 02/17/18 22:00 02/23/18 23:56 Ranexa - PO Not Given BID J CARLOS Rifaximin 550 mg 02/17/18 22:00 02/23/18 23:58 Xifaxan - PO Not Given BID J CARLOS Senna 1 tab 02/21/18 22:00 02/23/18 23:58 Senna - PO Not Given [facility] Vital Signs: Vital Signs Temp 99.8 F H 02/24/18 06:00 Pulse 60 02/24/18 06:00 Resp 21 H 02/24/18 12:30 BP 108/71 02/24/18 06:00 Pulse Ox 97 02/23/18 20:34 Intake & Output 02/23/18 02/24/18 02/24/18 23:59 11:59 23:59 Intake Total 3679 3000 Output Total 150 250 Balance 3529 2750 Weight 274 lb 7 oz Intake: IV 3379 3000 DOPAMINE 400 MG/D5W - 400 1044 780 ,000 mcg In 250 ml @ 5 MCG/KG/MIN 21.96 mls/hr IVPB TITR [facility] Rx#: [id number] LACTATED RINGERS SOLUTION 500 1,000 ml In 1,000 ml @ 125 mls/hr IV ASDIR [facility] Rx#:[id number] Levophed - 8,000 Mcg In 1 600 /2 Normal Saline 992 ml @ 20 MCG/MIN 150 mls/hr IV TITR [facility] Rx#:[id number] Levophed - 8,000 Mcg In 900 D5w - 492 ml @ 5 MCG/MIN 18.75 mls/hr IV TITR [facility] Rx#:[id number] Normal Saline - 1,000 ml 875 1500 @ 125 mls/hr IV ASDIR [facility] Rx#:[id number] Versed - 100 mg In Normal 60 120 Saline - 100 ml @ 5 MG/ HR 5 mls/hr IVPB TITR [facility] Rx#:[id number] IVPB 100 Albumin 200 Output: Urine 150 250 Shelley 150 250 Other: Voiding Method Indwelling Catheter Indwelling Catheter Bowel Movement No No Constitutional: Yes: sedated, intubated Respiratory: Yes: cta bl anterior, vented Gastrointestinal: Yes: Normal Bowel Sounds Cardiovascular: Yes: Regular Rate and Rhythm JVD: No Heart Sounds: Yes: S1, S2 Edema: Yes Peripheral Pulses WNL: Yes Integumentary: No: Jaundice diaphoresis Neurological: sedated Laboratory Last Values WBC 20.4 K/mm3 (4.0-10.0) H 02/24/18 05:30 RBC 2.60 M/mm3 (4.00-5.60) L 02/24/18 05:30 Hgb 7.6 GM/dL (11.7-16.9) L 02/24/18 05:30 Hct 23.6 % (35.4-49) L 02/24/18 05:30 MCV 90.8 fl (80-96) 02/24/18 05:30 MCH 29.3 pg (25.7-33.7) 02/24/18 05:30 MCHC 32.3 g/dl (32.0-35.9) 02/24/18 05:30 RDW 21.3 % (11.9-15.9) H 02/24/18 05:30 Plt Count 129 K/MM3 (134-434) L 02/24/18 05:30 MPV 7.7 fl (7.5-11.1) 02/24/18 05:30 Absolute Neuts (auto) 18.7 K/mm3 (1.5-8.0) H 02/24/18 05:30 Total Counted 100 02/24/18 05:30 Neutrophils % 91.7 % (42.8-82.8) H 02/24/18 05:30 Neutrophils % (Manual) 86.0 % (42.8-82.8) H 02/24/18 05:30 Band Neutrophils % 5.0 % 02/24/18 05:30 Lymphocytes % 3.1 % (8-40) L D 02/24/18 05:30 Lymphocytes % (Manual) 2.0 % (8-40) L D 02/24/18 05:30 Monocytes % 5.1 % (3.8-10.2) 02/24/18 05:30 Monocytes % (Manual) 6 % (3.8-10.2) D 02/24/18 05:30 Eosinophils % 0.0 % (0-4.5) 02/24/18 05:30 Eosinophils % (Manual) 0.0 % (0-4.5) D 02/23/18 05:30 Basophils % 0.1 % (0-2.0) 02/24/18 05:30 Basophils % (Manual) 0.0 % (0-2.0) 02/23/18 05:30 Myelocytes % (Man) 1 % (0-2) 02/24/18 05:30 Promyelocytes % (Man) 1 % (0-2) D 02/23/18 05:30 Blast Cells % (Manual) 0 % (0-0) 02/23/18 05:30 Nucleated RBC % 0 % (0-0) 02/24/18 05:30 Metamyelocytes 1 % (0-2) D 02/23/18 05:30 Hypochromia 0 02/23/18 05:30 Toxic Granulation 1+ 02/23/18 05:30 Platelet Estimate Normal 02/24/18 05:30 Polychromasia 1+ 02/23/18 05:30 Poikilocytosis 1+ 02/23/18 05:30 Anisocytosis 1+ 02/24/18 05:30 Microcytosis 2+ 02/23/18 05:30 Macrocytosis 0 02/23/18 05:30 Tear Drop Cells 1+ 02/23/18 05:30 Retic Count 4.65 % (0.5-1.5) H D 02/22/18 05:30 Haptoglobin 138 mg/dL (34-200) 02/22/18 05:30 PT with INR 17.90 SEC (9.7-13.0) H 02/22/18 05:30 INR 1.51 (0.83-1.09) H 02/22/18 05:30 PTT (Actin FS) 40.6 SECONDS (25.2-36.5) H 02/22/18 05:30 Anticoagulation Therapy No Result Required. 02/23/18 06:30 Puncture Site Right brachial 02/24/18 09:10 ABG pH 7.36 (7.35-7.45) 02/24/18 09:10 ABG pCO2 at Pt Temp 28.5 mmHg (35-45) L 02/24/18 09:10 ABG pO2 at Pt Temp 76.1 mmHg (80-100) L 02/24/18 09:10 ABG HCO3 15.8 meq/L (22-26) L 02/24/18 09:10 ABG O2 Sat (Measured) 94.3 % (90-98.9) 02/24/18 09:10 ABG O2 Content 10.0 % vol (15-22) L 02/24/18 09:10 ABG Base Excess -8.3 meq/l (-2-2) L 02/24/18 09:10 Yousif Test Positive 02/24/18 09:10 VBG pH 7.16 (7.32-7.42) L* D 02/22/18 23:45 POC VBG pCO2 43.5 mmHg (38-52) 02/22/18 23:45 POC VBG pO2 35.8 mmHg (28-48) D 02/22/18 23:45 Mixed VBG HCO3 14.9 meq/L (19-25) L* 02/22/18 23:45 O2 Delivery Device No Result Required. 02/23/18 06:30 Oxygen Flow Rate Yes 02/24/18 09:10 Vent Mode No Result Required. 02/23/18 06:30 Vent Rate 500 02/23/18 06:30 Mechanical Rate No Result Required. 02/23/18 06:30 PEEP 5.0 cmH2O 02/23/18 06:30 Pressure Support Vent No Result Required. 02/23/18 06:30 Sodium 128 mmol/L (136-145) L 02/24/18 05:30 Potassium 4.6 mmol/L (3.5-5.1) 02/24/18 05:30 Chloride 98 mmol/L (98-107) 02/24/18 05:30 Carbon Dioxide 18 mmol/L (21-32) L 02/24/18 05:30 Anion Gap 12 MMOL/L (8-16) 02/24/18 05:30 BUN 58 mg/dL (7-18) H 02/24/18 05:30 Creatinine 3.1 mg/dL (0.55-1.3) H 02/24/18 05:30 Creat Clearance w eGFR 20.66 (>60) 02/24/18 05:30 POC Glucometer 320.33566 UNITS (80-120) 02/24/18 06:04 Random Glucose 272 mg/dL (74-106) H 02/24/18 05:30 Lactic Acid 3.6 mmol/L (0.4-2.0) H* 02/23/18 01:15 Calcium 7.3 mg/dL (8.5-10.1) L 02/24/18 05:30 Phosphorus 5.5 mg/dL (2.5-4.9) H 02/24/18 05:30 Magnesium 1.9 mg/dL (1.8-2.4) 02/24/18 05:30 Iron 66 ug/dL (38-169) 02/21/18 07:10 TIBC 158 ug/dL (250-450) L 02/21/18 07:10 Iron Saturation 42 % (15-55) 02/21/18 07:10 Ferritin 175.7 ng/ml (8-388) 02/21/18 07:10 Total Bilirubin 4.6 mg/dL (0.2-1) H 02/24/18 05:30 AST 1013 U/L (15-37) H 02/24/18 05:30 ALT 342 U/L (13-61) H 02/24/18 05:30 Alkaline Phosphatase 142 U/L (45-117) H 02/24/18 05:30 Ammonia 68.70 umol/L (11-32) H 02/18/18 06:40 LD Total 310 U/L (87-246) H 02/22/18 05:30 Creatine Kinase 787 IU/L (26-308) H 02/23/18 10:50 Creatine Kinase Index 6.0 % (0.0-5.0) H 02/23/18 10:50 CK-MB (CK-2) 47.9 ng/mL (0.5-3.6) H 02/23/18 10:50 Troponin I 26.60 ng/ml (0.00-0.05) H* 02/23/18 19:20 C-Reactive Protein 16.9 MG/DL (0.00-0.3) H 02/19/18 07:00 Total Protein 6.5 g/dl (6.4-8.2) 02/24/18 05:30 Albumin 3.0 g/dl (3.4-5.0) L 02/24/18 05:30 Vitamin B12 1898 pg/ml (193-986) H 02/21/18 07:10 Folate 2307 ng/mL (>498) 02/21/18 07:10 Folate Hemolysate 597.4 ng/mL (Not Estab.) 02/21/18 07:10 TSH 0.27 uIU/ml (0.358-3.74) L D 02/21/18 07:10 Free T4 1.37 ng/dl (0.76-1.16) H 02/21/18 07:10 Urine Color Kaley 02/21/18 17:39 Urine Appearance Slcloudy 02/21/18 17:39 Urine pH 5.0 (5.0-8.0) 02/21/18 17:39 Ur Specific [place] 1.016 (1.010-1.035) 02/21/18 17:39 Urine Protein Negative (NEGATIVE) 02/21/18 17:39 Urine Glucose (UA) Negative (NEGATIVE) 02/21/18 17:39 Urine Ketones Negative (NEGATIVE) 02/21/18 17:39 Urine Blood Negative (NEGATIVE) 02/21/18 17:39 Urine Nitrite Negative (NEGATIVE) 02/21/18 17:39 Urine Bilirubin Negative (<2.0 mg/dL) 02/21/18 17:39 Urine Urobilinogen 4.0 e.u/dl mg/dL (0.2-1.0) 02/21/18 17:39 Ur Leukocyte Esterase Negative (NEGATIVE) 02/21/18 17:39 Urine WBC (Auto) 5 /hpf (3-5) 02/19/18 13:00 Urine RBC (Auto) 40 /hpf (0-3) 02/19/18 13:00 Ur Epithelial Cells Rare /HPF (FEW) 02/19/18 13:00 Hyaline Casts 16 /lpf 02/19/18 13:00 Stool Occult Blood Positive (NEGATIVE) 02/21/18 12:00 Random Vancomycin 15.8 ug/ml (18-26) L 02/24/18 05:30 Vancomycin Pre-Dose 20.5 ug/ml (18-26) 02/23/18 05:30 Blood Type A POSITIVE 02/20/18 09:15 Antibody Screen Negative 02/20/18 09:15 Crossmatch See Detail 02/20/18 09:15 EKG: sinus fermín, LAD, LVH Echo 10/2016 LV mildly dilated, nl LV function, RV nl function and size, mildly dilated RA, tr TR echo 02/2018 LV mildly dilated, nl LV function EF 60-65%, grade II diastolic dysfunction, increased filling pressures, RV nl, LA mod dilatd, RA nl mibi 05/2015 no ischemia, EF 53% tele: sr cxr: chf/infiltrates est cct 35 mins Assessment/Plan 58M h/o CAD s/p stents 2007,HERNANDEZ, HCC with ascites, DM, foot ulcer p/w foot ulcer debridement, ascites, now with NSTEMI NSTEMI - mild MARGARITO in I, aVL on EKG initially then resolved - discussed case with interventional cardiology [facility] [place] - given anemia, SHANEKA, cirrhosis in patient asymptomatic, nl EF would defer cardiac catheterization at this point, medical management and monitor closely - deferring clopidogrel, asa, heparin gtt given stool occult blood pos, anemia requiring transfusion during this admission, also hx varices and gettig IV protonix, octreotide - would defer safety of anticoagulation/anti platelet agents to infectious disease physician given concern for bleed with hx varices, stool blood pos - continue ranolazine. statin held 2/2 elevated lfts - normal EF on echo 02/20 hypotension, septic shock: -had code 99 02/22, now intubated on pressors -cont abx -wean pressors as tolerated ascites, LLE edema - ascites likely in setting of HCC, HERNANDEZ - on spironolactone and lasix at home, now s/p paracentesis - edema likely in setting of lower ext wound - lungs clear - echo normal EF, with diastolic dysfunction - holding diuretics in setting of hypotension as above HCC, HERNANDEZ, cirrhosis - on octreotide, IV protonix GI following - plan for transfer to [facility] for tertiary care foot ulcer - wound care, ID consulted with plan for debridement this week - patient is not cleared from cardiac standpoint due to NSTEMI, hypotension - on abx CAD - on ranolazine - manage NSTEMI as above - normal EF on echo 02/2018, grade II diastolic dysfunction
--- NOTE | 2018-02-24 12:39 | PN ---
Physical Exam: SUBJECTIVE: - Dialysis for 2 hours yesterday. No fluid removed - Right IJ triple lumen catheter and left femoral dialysis catheter placed yesterday - Transfer to [facility] denied due to overall poor prognosis - IVF stopped, albumin stopped. 100mg IV lasix given per nephrology recs - Palliative consult - DNR order signed by pt's OBJECTIVE: Vital Signs Period Temp Pulse Resp BP Sys/Ferrell Pulse Ox Last 24 Hr 98.8 F-100.9 F 53-73 5-29 102-143/56-82 95-97 General: Sedated HEENT: ETT and RIJ in place. Cards: Hypotensive, RRR, no murmur appreciated Pulm: Mechanically ventilated Abd: Soft, moderately distended. Ext: BLE 1+ pitting edema. L foot with wound on lateral side; fibrinous exudate in base of wound. Neuro: Sedated Laboratory Results - last 24 hr 02/20/18 02/23/18 02/23/18 09:15 10:50 16:51 WBC RBC Hgb Hct MCV MCH MCHC RDW Plt Count MPV Absolute Neuts (auto) Total Counted Neutrophils % Neutrophils % (Manual) Band Neutrophils % Lymphocytes % Lymphocytes % (Manual) Monocytes % Monocytes % (Manual) Eosinophils % Basophils % Myelocytes % (Man) Nucleated RBC % Platelet Estimate Anisocytosis Puncture Site ABG pH ABG pCO2 at Pt Temp ABG pO2 at Pt Temp ABG HCO3 ABG O2 Sat (Measured) ABG O2 Content ABG Base Excess Yousif Test Oxygen Flow Rate Sodium Potassium Chloride Carbon Dioxide Anion Gap BUN Creatinine Creat Clearance w eGFR POC Glucometer [phone] Random Glucose Calcium Phosphorus Magnesium Total Bilirubin AST ALT Alkaline Phosphatase Creatine Kinase Index 6.0 H CK-MB (CK-2) 47.9 H Troponin I 26.80 H* Total Protein Albumin Random Vancomycin Blood Type A POSITIVE Antibody Screen Negative Crossmatch See Detail 02/23/18 02/23/18 02/24/18 19:20 23:53 05:30 WBC RBC Hgb Hct MCV MCH MCHC RDW Plt Count MPV Absolute Neuts (auto) Total Counted Neutrophils % Neutrophils % (Manual) Band Neutrophils % Lymphocytes % Lymphocytes % (Manual) Monocytes % Monocytes % (Manual) Eosinophils % Basophils % Myelocytes % (Man) Nucleated RBC % Platelet Estimate Anisocytosis Puncture Site ABG pH ABG pCO2 at Pt Temp ABG pO2 at Pt Temp ABG HCO3 ABG O2 Sat (Measured) ABG O2 Content ABG Base Excess Yousif Test Oxygen Flow Rate Sodium Potassium Chloride Carbon Dioxide Anion Gap BUN Creatinine Creat Clearance w eGFR POC Glucometer [phone] Random Glucose Calcium Phosphorus Magnesium Total Bilirubin AST ALT Alkaline Phosphatase Creatine Kinase Index CK-MB (CK-2) Troponin I 26.60 H* Total Protein Albumin Random Vancomycin 15.8 L Blood Type Antibody Screen Crossmatch 02/24/18 02/24/18 02/24/18 05:30 05:30 06:04 WBC 20.4 H RBC 2.60 L Hgb 7.6 L Hct 23.6 L MCV 90.8 MCH 29.3 MCHC 32.3 RDW 21.3 H Plt Count 129 L MPV 7.7 Absolute Neuts (auto) 18.7 H Total Counted 100 Neutrophils % 91.7 H Neutrophils % (Manual) 86.0 H Band Neutrophils % 5.0 Lymphocytes % 3.1 L D Lymphocytes % (Manual) 2.0 L D Monocytes % 5.1 Monocytes % (Manual) 6 D Eosinophils % 0.0 Basophils % 0.1 Myelocytes % (Man) 1 Nucleated RBC % 0 Platelet Estimate Normal Anisocytosis 1+ Puncture Site ABG pH ABG pCO2 at Pt Temp ABG pO2 at Pt Temp ABG HCO3 ABG O2 Sat (Measured) ABG O2 Content ABG Base Excess Yousif Test Oxygen Flow Rate Sodium 128 L Potassium 4.6 Chloride 98 Carbon Dioxide 18 L Anion Gap 12 BUN 58 H Creatinine 3.1 H Creat Clearance w eGFR 20.66 POC Glucometer [phone] Random Glucose 272 H Calcium 7.3 L Phosphorus 5.5 H Magnesium 1.9 Total Bilirubin 4.6 H AST 1013 H ALT 342 H Alkaline Phosphatase 142 H Creatine Kinase Index CK-MB (CK-2) Troponin I Total Protein 6.5 Albumin 3.0 L Random Vancomycin Blood Type Antibody Screen Crossmatch 02/24/18 09:10 WBC RBC Hgb Hct MCV MCH MCHC RDW Plt Count MPV Absolute Neuts (auto) Total Counted Neutrophils % Neutrophils % (Manual) Band Neutrophils % Lymphocytes % Lymphocytes % (Manual) Monocytes % Monocytes % (Manual) Eosinophils % Basophils % Myelocytes % (Man) Nucleated RBC % Platelet Estimate Anisocytosis Puncture Site Right brachial ABG pH 7.36 ABG pCO2 at Pt Temp 28.5 L ABG pO2 at Pt Temp 76.1 L ABG HCO3 15.8 L ABG O2 Sat (Measured) 94.3 ABG O2 Content 10.0 L ABG Base Excess -8.3 L Yousif Test Positive Oxygen Flow Rate Yes Sodium Potassium Chloride Carbon Dioxide Anion Gap BUN Creatinine Creat Clearance w eGFR POC Glucometer Random Glucose Calcium Phosphorus Magnesium Total Bilirubin AST ALT Alkaline Phosphatase Creatine Kinase Index CK-MB (CK-2) Troponin I Total Protein Albumin Random Vancomycin Blood Type Antibody Screen Crossmatch Active Medications Generic Name Dose Route Start Last Admin Trade Name Freq PRN Reason Stop Dose Admin Albuterol/Ipratropium 1 amp 02/24/18 12:00 02/24/18 12:34 Duoneb - NEB 1 amp RQID J CARLOS Administration Atorvastatin Calcium 80 mg 02/21/18 22:00 02/23/18 23:58 Lipitor - PO Not Given HS J CARLOS Chlorhexidine Gluconate 1 applic 02/21/18 22:00 02/23/18 22:18 Hibiclens For Decolonization - TP 1 applic HS J CARLOS Administration Chlorhexidine Gluconate 15 ml 02/23/18 22:00 02/23/18 22:23 Peridex - MM 15 ml BID J CARLOS Administration Collagenase 1 applic 02/18/18 10:00 02/23/18 12:38 Santyl - TP 1 applic DAILY J CARLOS Administration Protocol Fludrocortisone Acetate 0.05 mg 02/23/18 16:00 02/23/18 16:15 Florinef - PO Not Given DAILY J CARLOS Hydrocortisone Sodium Succinate 50 mg 02/23/18 13:00 02/24/18 06:49 Solu-Cortef - IVPB 50 mg Q6H J CARLOS Administration Octreotide Acetate 1,200 mcg/ 500 mls @ 20.83 mls/hr 02/21/18 19:45 02/23/18 22:17 Dextrose IVPB 20.83 mls/hr ASDIR J CARLOS Administration Protocol 50 MCG/HR Dopamine HCl/Dextrose 400,000 mcg in 250 mls @ 21.96 mls/hr 02/22/18 23:45 06:52 Dopamine 400 Mg/D5w - IVPB 13 mcg/kg/min TITR J CARLOS 57.095 mls/hr Titration Protocol 5 MCG/KG/MIN Midazolam HCl 100 mg/ Sodium 100 mls @ 5 mls/hr 02/22/18 23:45 02/23/18 23:56 Chloride IVPB 10 mg/hr TITR J CARLOS 10 mls/hr Administration Protocol 5 MG/HR Norepinephrine Bitartrate 8, 1,000 mls @ 150 mls/hr 02/23/18 14:30 02/24/18 06:52 000 mcg/ Sodium Chloride IV 13 mcg/min TITR J CARLOS 97.5 mls/hr Titration Protocol 20 MCG/MIN Cefepime HCl 1 gm in 50 mls @ 100 mls/hr 02/24/18 10:00 02/24/18 10:37 Maxipime 1 Gm Premix Ivpb IVPB 100 mls/hr Q24H J CARLOS Administration Protocol Sodium Chloride 250 mls @ 3,000 mls/hr 02/23/18 23:13 Normal Saline - IV 02/24/18 23:13 PRN PRN Hypotension during Dialysis Insulin Aspart 1 vial 02/24/18 07:55 Novolog Vial Sliding Scale - SQ ACHS J CARLOS Protocol Insulin Detemir 10 units 02/17/18 22:00 02/23/18 23:55 Levemir Vial SQ 10 units HS J CARLOS Administration Lactulose 20 gm 02/17/18 22:00 02/24/18 06:45 Cephulac (Oral Use) PO Not Given TID J CARLOS Lidocaine 1 patch 02/22/18 10:00 02/24/18 10:44 Lidoderm Patch - TP 1 patch DAILY J CARLOS Administration Miscellaneous 1 each 02/22/18 22:00 02/23/18 22:18 Lidoderm Patch Removal MC 1 each DAILY@2200 J CARLOS Administration Multivitamins/Minerals/Vitamin C 1 tab 02/18/18 10:00 02/23/18 12:38 Tab-A-Vit - PO Not Given DAILY J CARLOS Mupirocin 1 applic 02/21/18 22:00 02/24/18 10:38 Bactroban Ointment (For Decolonization) - NS 02/26/18 21:59 1 applic BID J CARLOS Administration Nadolol 20 mg 02/18/18 10:00 02/24/18 10:44 Corgard - PO Not Given DAILY J CARLOS Pantoprazole Sodium 40 mg 02/22/18 10:00 02/24/18 10:40 Protonix Iv IVPUSH 40 mg DAILY J CARLOS Administration Polyethylene Glycol 17 gm 02/21/18 10:00 02/23/18 12:38 Miralax (For Daily Use) - PO Not Given DAILY J CARLOS Ranolazine 1,000 mg 02/17/18 22:00 02/23/18 23:56 Ranexa - PO Not Given BID J CARLOS Rifaximin 550 mg 02/17/18 22:00 02/23/18 23:58 Xifaxan - PO Not Given BID J CARLOS Senna 1 tab 02/21/18 22:00 02/23/18 23:58 Senna - PO Not Given HS J CARLOS ASSESSMENT/PLAN: Logan Schaeffer is a 58yo man with a PMH of HTN, HLD, CAD, chronic anemia, HERNANDEZ , HDCC, ascites, esophageal varicies, IDDM, PVD, diabetic foot ulcers who was transferred to the ICU on 02/21 with an NSTEMI and hypotension to the 60's following paracentesis with 9L removed. On the evening of 02/22, he became bradycardic and hypotensive, then went into PEA arrest. ROSC was achieved with 6 minutes of CPR, he was intubated, and a central line was placed due to need for pressors. He subsequently became aneuric and required urgent dialysis, started yesterday. Mr Schaeffer remains in critical condition in the ICU and was made DNR by his family this morning. Neuro: - Versed drip for sedation CV: - NSTEMI, possibly due to demand ischemia with hypotension to the 60's. Troponins increased to 26, no longer trending. - No heparin or plavix due to guaiac positive stool - s/p PEA arrest with ROSC. - Currently maintaining MAPs of at least 65 with norepinephrine at 13 and dopamine at 13 - h/o HTN, HLD, CAD. Continue home ASA, statin, ranolazine via NGT. - Holding home lisinopril, lasix, spironolactone in the setting of hypotension - Hypotension initially most likely due to large volume paracentesis and intravascular volume depletion. - Discontinued albumin 25% and IVF as Mr Schaeffer appears fluid overloaded despite requiring pressors. Both IJ and femoral veins noted to be distended while placing lines at bedside. - Hydrocortisone 50mg Q6hr, fludrocortisone 50mg daily - Repeat echo post UT - no acute wall motion abnormalities noted, but technically difficult and limited study Pulm: - Intubated and mechanically ventilated - Morning CXR with RUL atalectasis. - Requiring suctioning. - Duonebs Q6hr started - Maintain sats over 90 Heme: - Chronic anemia - Hematology following - Monitor daily CBC GI: - h/o HCC, HERNANDEZ, ascites, esophageal varicies - NGT for meds. - Dr Wilson consulted for +guaiac stool. - D/c octreotide drip as no active bleeding has been noted; will discuss with GI - Dr Wilson recommending RBC transfusion. Will discuss but family just decided to sign DNR orders and is discussing goals of care with palliative team , may choose not to transfuse at this time. - Continue lactulose, rifamixin, natolol, pantoprazole - Encourage use of lactulose, miralax, senna. No BM for several days Renal: - Holding home diuretics and lisinopril due to hypotension - D/c IVF and gave lasix 100mg IV per Dr Faith - Dialysis yesterday for 2 hours, planned 2nd session today - Hyperkalemia resolved following dialysis. Improved BUN/Cr today - Trialysis catheter placed in left femoral vein. ID: - Blood and urine cultures sent - BCx with staph - Has been afebrile - Dr Casas following - started on emperic vancomycin and cefepime Endo: - IDDM - Hyperglycemic overnight, increased ISS - May need insulin drip if continues to be significantly hyperglycemic in 300 's. f/u BGM Musc: - Continue wound care to diabetic foot ulcers - santyl to wound PPx: - Holding heparin due to guaiac positive stool; no LE compression due to PVD - Pantoprazole FEN: - NPO - Holding IVF due to fluid overload - Replete lytes PRN Dispo: - Monitor in ICU. - Palliative consulted for discussion of goals of care with family. Code Status: DNR Seen and discussed with Dr Hdz. Katlin Smith PGY1 Visit type - Emergency Visit Emergency Visit: No - New Patient This patient is new to me today: No - Critical Care Critical Care patient: Yes Total Critical Care Time (in minutes): 45 Critical Care Statement: The care of this patient involved high complexity decision making to prevent further life threatening deterioration of the patient 's condition and/or to evaluate & treat vital organ system(s) failure or risk of failure.
--- NOTE | 2018-02-24 12:46 | PN ---
Progress Note (short form) - Note Progress Note: Renal follow up for SHANEKA Pt seen and examined in the ICU on vent, 60% FiO2 on dopamine and levophed anuric at this time tolerated first dialysis yesterday Vital Signs Temperature 99.8 F H 02/24/18 06:00 Pulse Rate 60 02/24/18 06:00 Respiratory Rate 21 H 02/24/18 12:30 Blood Pressure 108/71 02/24/18 06:00 O2 Sat by Pulse Oximetry (%) 97 02/23/18 20:34 Intake & Output 02/21/18 02/22/18 02/23/18 02/24/18 23:59 23:59 23:59 23:59 Intake Total 2700 2729 6007 3000 Output Total 1800 720 160 250 Balance 900 2009 5847 2750 Weight 117.118 kg 120.429 kg 124.483 kg intubated and sedated neck supple RRR Edil BC + abd ascities + LE edema gonzalez in place CBC, BMP 02/24/18 05:30 02/24/18 05:30 Current Medications Albuterol/Ipratropium (Duoneb -) 1 amp NEB RQID J CARLOS Last Admin: 02/24/18 12:34 Dose: 1 amp Atorvastatin Calcium (Lipitor -) 80 mg PO HS J CARLOS Last Admin: 02/23/18 23:58 Dose: Not Given Chlorhexidine Gluconate (Hibiclens For Decolonization -) 1 applic TP HS J CARLOS Last Admin: 02/23/18 22:18 Dose: 1 applic Chlorhexidine Gluconate (Peridex -) 15 ml MM BID J CARLOS Last Admin: 02/23/18 22:23 Dose: 15 ml Collagenase (Santyl -) 1 applic TP DAILY J CARLOS; Protocol Last Admin: 02/23/18 12:38 Dose: 1 applic Fludrocortisone Acetate (Florinef -) 0.05 mg PO DAILY J CARLOS Last Admin: 02/23/18 16:15 Dose: Not Given Furosemide (Lasix Injection -) 160 mg IVPB ONCE ONE Stop: 02/24/18 18:01 Hydrocortisone Sodium Succinate (Solu-Cortef -) 50 mg IVPB Q6H J CARLOS Last Admin: 02/24/18 06:49 Dose: 50 mg Octreotide Acetate 1,200 mcg/ (Dextrose) 500 mls @ 20.83 mls/hr IVPB ASDIR J CARLOS ; Protocol Last Admin: 02/23/18 22:17 Dose: 20.83 mls/hr Dopamine HCl/Dextrose (Dopamine 400 Mg/D5w -) 400,000 mcg in 250 mls @ 21.96 mls/hr IVPB TITR [facility]; Protocol Last Titration: 02/24/18 06:52 Dose: 13 mcg/kg/min, 57.095 mls/hr Midazolam HCl 100 mg/ Sodium (Chloride) 100 mls @ 5 mls/hr IVPB TITR [facility]; Protocol Last Admin: 02/23/18 23:56 Dose: 10 mg/hr, 10 mls/hr Norepinephrine Bitartrate 8, (000 mcg/ Sodium Chloride) 1,000 mls @ 150 mls/hr IV TITR J CARLOS; Protocol Last Titration: 02/24/18 06:52 Dose: 13 mcg/min, 97.5 mls/hr Cefepime HCl (Maxipime 1 Gm Premix Ivpb) 1 gm in 50 mls @ 100 mls/hr IVPB Q24H [facility]; Protocol Last Admin: 02/24/18 10:37 Dose: 100 mls/hr Sodium Chloride (Normal Saline -) 250 mls @ 3,000 mls/hr IV PRN PRN PRN Reason: Hypotension during Dialysis Stop: 02/24/18 23:13 Insulin Aspart (Novolog Vial Sliding Scale -) 1 vial SQ ACHS [facility]; Protocol Insulin Detemir (Levemir Vial) 10 units SQ HS [facility] Last Admin: 02/23/18 23:55 Dose: 10 units Lactulose (Cephulac (Oral Use)) 20 gm PO TID [facility] Last Admin: 02/24/18 06:45 Dose: Not Given Lidocaine (Lidoderm Patch -) 1 patch TP DAILY [facility] Last Admin: 02/24/18 10:44 Dose: 1 patch Miscellaneous (Lidoderm Patch Removal) 1 each MC DAILY@2200 [facility] Last Admin: 02/23/18 22:18 Dose: 1 each Multivitamins/Minerals/Vitamin C (Tab-A-Vit -) 1 tab PO DAILY [facility] Last Admin: 02/23/18 12:38 Dose: Not Given Mupirocin (Bactroban Ointment (For Decolonization) -) 1 applic NS BID [facility] Stop: 02/26/18 21:59 Last Admin: 02/24/18 10:38 Dose: 1 applic Nadolol (Corgard -) 20 mg PO DAILY [facility] Last Admin: 02/24/18 10:44 Dose: Not Given Pantoprazole Sodium (Protonix Iv) 40 mg IVPUSH DAILY [facility] Last Admin: 02/24/18 10:40 Dose: 40 mg Polyethylene Glycol (Miralax (For Daily Use) -) 17 gm PO DAILY [facility] Last Admin: 02/23/18 12:38 Dose: Not Given Ranolazine (Ranexa -) 1,000 mg PO BID [facility] Last Admin: 02/23/18 23:56 Dose: Not Given Rifaximin (Xifaxan -) 550 mg PO BID [facility] Last Admin: 02/23/18 23:58 Dose: Not Given Senna (Senna -) 1 tab PO HS [facility] Last Admin: 02/23/18 23:58 Dose: Not Given A/P 58 year old gentleman with hx of HCC s/p radiation Tx, Non-alcoholic cirrhosis, CAD, DM, hx of SHANEKA who presented with LE wound found to have worsening asciteis now with NSTEMI and SHANEKA. #SHANEKA secondary to Hepato-renal syndrome +/- ATN #Cirrhosis with massive ascities #NSTEMI #Hypotension in setting of cirrhosis and intravascular volume depletion #Anemia #Thrombocytopenia #PEA arrest tolerated first dialysis yesterday, for 2nd treatment today will attempt 1.5L UF as pt with pulmonary congestion and higher O2 requirement Give large dose IV Lasix BID to induce diuresi s Vent support Abx as per ID, dose vanco by levels ICU monitoring prognosis is poor continue sepsis protocol Anton Faith DO
[2018-02-24] MEDS: RANOLAZINE E.R. 1,000 MG TABLET (FP) PO SCH (13:10)
[2018-02-24] MEDS: MULTIVITAMINS (DAILY MVI) TABLET (FP) PO SCH (13:10)
[2018-02-24] MEDS: RIFAXIMIN 550 MG TABLET (UD) PO SCH (13:13)
[2018-02-24] MEDS: FLUDROCORTISONE ACETATE 0.1 MG TABLET (FP) PO SCH (13:13)
--- NOTE | 2018-02-24 13:18 | PN ---
Teaching Attending Note Name of Resident: Katlin Smith ATTENDING PHYSICIAN STATEMENT I saw and evaluated the patient. I reviewed the resident's note and discussed the case with the resident. I agree with the resident's findings and plan as documented. SUBJECTIVE: Patient seen and examined in the ICU. Remains intubated and sedated. AC Mode of vent. Remains on pressors: NE @ 15 mcq and Dopamine @ 10mcq for hemodynamic support. S/P HD yesterday. OBJECTIVE: Intake & Output 02/21/18 02/22/18 02/23/18 02/24/18 23:59 23:59 23:59 23:59 Intake Total 2700 2729 6007 3000 Output Total 1800 720 160 250 Balance 900 2009 5847 2750 Weight 258 lb 3.2 oz 265 lb 8 oz 274 lb 7 oz Last Vital Signs Temp Pulse Resp BP Pulse Ox 99.8 F H 60 21 H 108/71 97 02/24/18 06:00 02/24/18 06:00 02/24/18 12:30 02/24/18 06:00 02/23/18 20:34 Active Medications Albuterol/Ipratropium (Duoneb -) 1 amp NEB RQID [facility] Last Admin: 02/24/18 12:34 Dose: 1 amp Atorvastatin Calcium (Lipitor -) 80 mg PO HS [facility] Last Admin: 02/23/18 23:58 Dose: Not Given Chlorhexidine Gluconate (Hibiclens For Decolonization -) 1 applic TP HS [facility] Last Admin: 02/23/18 22:18 Dose: 1 applic Chlorhexidine Gluconate (Peridex -) 15 ml MM BID [facility] Last Admin: 02/24/18 10:20 Dose: 15 ml Collagenase (Santyl -) 1 applic TP DAILY [facility]; Protocol Last Admin: 02/24/18 10:00 Dose: 1 applic Fludrocortisone Acetate (Florinef -) 0.05 mg PO DAILY [facility] Last Admin: 02/24/18 13:13 Dose: Not Given Furosemide (Lasix Injection -) 160 mg IVPB ONCE ONE Stop: 02/24/18 18:01 Hydrocortisone Sodium Succinate (Solu-Cortef -) 50 mg IVPB Q6H J CARLOS Last Admin: 02/24/18 06:49 Dose: 50 mg Octreotide Acetate 1,200 mcg/ (Dextrose) 500 mls @ 20.83 mls/hr IVPB ASDIR J CARLOS ; Protocol Last Admin: 02/23/18 22:17 Dose: 20.83 mls/hr Dopamine HCl/Dextrose (Dopamine 400 Mg/D5w -) 400,000 mcg in 250 mls @ 21.96 mls/hr IVPB TITR [facility]; Protocol Last Titration: 02/24/18 06:52 Dose: 13 mcg/kg/min, 57.095 mls/hr Midazolam HCl 100 mg/ Sodium (Chloride) 100 mls @ 5 mls/hr IVPB TITR [facility]; Protocol Last Admin: 02/23/18 23:56 Dose: 10 mg/hr, 10 mls/hr Norepinephrine Bitartrate 8, (000 mcg/ Sodium Chloride) 1,000 mls @ 150 mls/hr IV TITR J CARLOS; Protocol Last Titration: 02/24/18 06:52 Dose: 13 mcg/min, 97.5 mls/hr Cefepime HCl (Maxipime 1 Gm Premix Ivpb) 1 gm in 50 mls @ 100 mls/hr IVPB Q24H [facility]; Protocol Last Admin: 02/24/18 10:37 Dose: 100 mls/hr Sodium Chloride (Normal Saline -) 250 mls @ 3,000 mls/hr IV PRN PRN PRN Reason: Hypotension during Dialysis Stop: 02/24/18 23:13 Insulin Aspart (Novolog Vial Sliding Scale -) 1 vial SQ ACHS [facility]; Protocol Insulin Detemir (Levemir Vial) 10 units SQ HS [facility] Last Admin: 02/23/18 23:55 Dose: 10 units Lactulose (Cephulac (Oral Use)) 20 gm PO TID [facility] Last Admin: 02/24/18 06:45 Dose: Not Given Lidocaine (Lidoderm Patch -) 1 patch TP DAILY [facility] Last Admin: 02/24/18 10:44 Dose: 1 patch Miscellaneous (Lidoderm Patch Removal) 1 each MC DAILY@2200 [facility] Last Admin: 02/23/18 22:18 Dose: 1 each Multivitamins/Minerals/Vitamin C (Tab-A-Vit -) 1 tab PO DAILY [facility] Last Admin: 02/24/18 13:10 Dose: Not Given Mupirocin (Bactroban Ointment (For Decolonization) -) 1 applic NS BID [facility] Stop: 02/26/18 21:59 Last Admin: 02/24/18 10:38 Dose: 1 applic Nadolol (Corgard -) 20 mg PO DAILY [facility] Last Admin: 02/24/18 10:44 Dose: Not Given Pantoprazole Sodium (Protonix Iv) 40 mg IVPUSH DAILY [facility] Last Admin: 02/24/18 10:40 Dose: 40 mg Polyethylene Glycol (Miralax (For Daily Use) -) 17 gm PO DAILY [facility] Last Admin: 02/24/18 10:20 Dose: Not Given Ranolazine (Ranexa -) 1,000 mg PO BID [facility] Last Admin: 02/24/18 13:10 Dose: Not Given Rifaximin (Xifaxan -) 550 mg PO BID [facility] Last Admin: 02/24/18 13:13 Dose: Not Given Senna (Senna -) 1 tab PO HS [facility] Last Admin: 02/23/18 23:58 Dose: Not Given Gen: Intubated and sedated Heart: Bradycardia Lung: Bilateral coarse rhonchi, no wheeze Abd: softly distended, +ascites Ext: + edema Laboratory Results - last 24 hr 02/20/18 02/23/18 02/23/18 09:15 16:51 19:20 WBC RBC Hgb Hct MCV MCH MCHC RDW Plt Count MPV Absolute Neuts (auto) Total Counted Neutrophils % Neutrophils % (Manual) Band Neutrophils % Lymphocytes % Lymphocytes % (Manual) Monocytes % Monocytes % (Manual) Eosinophils % Basophils % Myelocytes % (Man) Nucleated RBC % Platelet Estimate Anisocytosis Puncture Site ABG pH ABG pCO2 at Pt Temp ABG pO2 at Pt Temp ABG HCO3 ABG O2 Sat (Measured) ABG O2 Content ABG Base Excess Yousif Test Oxygen Flow Rate Sodium Potassium Chloride Carbon Dioxide Anion Gap BUN Creatinine Creat Clearance w eGFR POC Glucometer [phone] Random Glucose Calcium Phosphorus Magnesium Total Bilirubin AST ALT Alkaline Phosphatase Troponin I 26.60 H* Total Protein Albumin Random Vancomycin Blood Type A POSITIVE Antibody Screen Negative Crossmatch See Detail 02/23/18 02/24/18 02/24/18 23:53 05:30 05:30 WBC 20.4 H RBC 2.60 L Hgb 7.6 L Hct 23.6 L MCV 90.8 MCH 29.3 MCHC 32.3 RDW 21.3 H Plt Count 129 L MPV 7.7 Absolute Neuts (auto) 18.7 H Total Counted 100 Neutrophils % 91.7 H Neutrophils % (Manual) 86.0 H Band Neutrophils % 5.0 Lymphocytes % 3.1 L D Lymphocytes % (Manual) 2.0 L D Monocytes % 5.1 Monocytes % (Manual) 6 D Eosinophils % 0.0 Basophils % 0.1 Myelocytes % (Man) 1 Nucleated RBC % 0 Platelet Estimate Normal Anisocytosis 1+ Puncture Site ABG pH ABG pCO2 at Pt Temp ABG pO2 at Pt Temp ABG HCO3 ABG O2 Sat (Measured) ABG O2 Content ABG Base Excess Yousif Test Oxygen Flow Rate Sodium Potassium Chloride Carbon Dioxide Anion Gap BUN Creatinine Creat Clearance w eGFR POC Glucometer [phone] Random Glucose Calcium Phosphorus Magnesium Total Bilirubin AST ALT Alkaline Phosphatase Troponin I Total Protein Albumin Random Vancomycin 15.8 L Blood Type Antibody Screen Crossmatch 02/24/18 02/24/18 02/24/18 05:30 06:04 09:10 WBC RBC Hgb Hct MCV MCH MCHC RDW Plt Count MPV Absolute Neuts (auto) Total Counted Neutrophils % Neutrophils % (Manual) Band Neutrophils % Lymphocytes % Lymphocytes % (Manual) Monocytes % Monocytes % (Manual) Eosinophils % Basophils % Myelocytes % (Man) Nucleated RBC % Platelet Estimate Anisocytosis Puncture Site Right brachial ABG pH 7.36 ABG pCO2 at Pt Temp 28.5 L ABG pO2 at Pt Temp 76.1 L ABG HCO3 15.8 L ABG O2 Sat (Measured) 94.3 ABG O2 Content 10.0 L ABG Base Excess -8.3 L Yousif Test Positive Oxygen Flow Rate Yes Sodium 128 L Potassium 4.6 Chloride 98 Carbon Dioxide 18 L Anion Gap 12 BUN 58 H Creatinine 3.1 H Creat Clearance w eGFR 20.66 POC Glucometer [phone] Random Glucose 272 H Calcium 7.3 L Phosphorus 5.5 H Magnesium 1.9 Total Bilirubin 4.6 H AST 1013 H ALT 342 H Alkaline Phosphatase 142 H Troponin I Total Protein 6.5 Albumin 3.0 L Random Vancomycin Blood Type Antibody Screen Crossmatch ASSESSMENT AND PLAN: Gram Positive Bacteremia Sepsis Acute Kidney Injury - r/o Hepato-Renal Syndrome Thrombocytopenia Coagulopathy Liver Cirrhosis Ascites s/p Large Volume Paracentesis r/o GI Bleed h/o Esophageal Varices HCC s/p TACE Acute NSTEMI CAD HTN - HD per Renal - ABX coverage - Noted albumin - Strict monitor urine output, creatinine - For refractory shock: hydrocortisone and fludrocortisone - Monitor CBC, coags - Normal transfusion thresholds - Protonix, octreotide per GI recommendations: discuss if still needed - Consider start enteral feeds - Condition critical / prognosis guarded - Made DNR - ICU monitoring Dr Hdz Critical care time spent in reviewing chart, evaluating patient and formulating plan 38 min
[2018-02-24] MEDS ORDERED: ATORVASTATIN CA 80 MG TABLET (FP) NGT SCH (14:04)
[2018-02-24] MEDS ORDERED: RANOLAZINE E.R. 1,000 MG TABLET (FP) PO SCH (14:04)
[2018-02-24] MEDS ORDERED: NADOLOL 20 MG TABLET (FP) NGT SCH (14:04)
[2018-02-24] MEDS ORDERED: POLYETHYLENE GLYCOL 3350 119 GM BTL NGT SCH (14:04)
[2018-02-24] MEDS ORDERED: SENNOSIDES 8.6MG TABLET (FP) PO SCH (14:04)
[2018-02-24] MEDS ORDERED: FLUDROCORTISONE ACETATE 0.1 MG TABLET (FP) NGT SCH (14:04)
[2018-02-24] MEDS: NOREPINEPHRINE BITARTRATE 8,000 MCG in SODIUM CHLORIDE 0.45% 992 ML IV SCH (17:19)
[2018-02-24] MEDS ORDERED: FUROSEMIDE 100 MG/10 ML INJECTABLE VIAL IVPB ONE (18:00)
[2018-02-24] MEDS: LACTULOSE 20 GM/30 ML UDC (FOR ORAL USE ONLY) NGT SCH (21:54)
[2018-02-24] MEDS: RIFAXIMIN 550 MG TABLET (UD) NGT SCH (21:55)
[2018-02-24] MEDS: LIDOCAINE PATCH REMOVAL MC SCH (22:15)
[2018-02-24] MEDS: INSULIN (LEVEMIR) 100 UNITS/ML UNITS SQ SCH (22:15)
[2018-02-24] MEDS: CHLORHEXIDINE GLUCONATE 4% CLEANSER FOR DECOLONIZATION TP SCH (22:15)
[2018-02-25] MEDS: HYDROCORTISONE SOD SUCCINATE 100 MG/2 ML VIAL IVPB SCH ×2 (03:20→06:02)
[2018-02-25] MEDS: DOPAMINE 400 MG/D5W - 400,000 MCG/250 ML INFUS.BAG IVPB SCH (05:59)
[2018-02-25] MEDS: MIDAZOLAM 100 MG in SODIUM CHLORIDE 100 ML IVPB SCH (06:00)
[2018-02-25] MEDS: LACTULOSE 20 GM/30 ML UDC (FOR ORAL USE ONLY) NGT SCH (06:00)
[2018-02-25] MEDS: INSULIN SLIDING SCALE (NOVOLOG) 1 VIAL SQ SCH (06:07)
[2018-02-25] MEDS: INSULIN (LEVEMIR) 100 UNITS/ML UNITS SQ SCH (06:09)
[2018-02-25 06:30] LABS: BASO % 0.2 % (0-2.0); HEMATOCRIT 23.6 % (35.4-49); HEMOGLOBIN 7.9 GM/dL (11.7-16.9); LYMPH % 1.3 % (8-40); MCH 30.1 pg (25.7-33.7); MCHC 33.6 g/dl (32.0-35.9); MEAN CELL VOLUME 89.6 fl (80-96); MEAN PLT VOLUME 7.4 fl (7.5-11.1); MONO % 4.2 % (3.8-10.2); NEUT % 94.3 % (42.8-82.8); PLATELET COUNT 108 K/MM3 (134-434); RBC 2.64 M/mm3 (4.00-5.60); RDW 21.2 % (11.9-15.9); WHITE BLOOD COUNT 19.3 K/mm3 (4.0-10.0)
[2018-02-25 07:00] LABS: ALBUMIN 2.5 g/dl (3.4-5.0); ALK PHOS 185 U/L (45-117); ANION GAP 9 MMOL/L (8-16); BILIRUBIN,TOTAL 4.7 mg/dL (0.2-1); BLOOD UREA NITROGEN 48 mg/dL (7-18); CALCIUM 7.3 mg/dL (8.5-10.1); CHLORIDE 100 mmol/L (98-107); CO2 22 mmol/L (21-32); CREATININE 2.4 mg/dL (0.55-1.3); GLUCOSE,RANDOM 205 mg/dL (74-106); PHOSPHOROUS 4.5 mg/dL (2.5-4.9); POTASSIUM 3.8 mmol/L (3.5-5.1); SGOT/AST 844 U/L (15-37); SGPT/ALT 398 U/L (13-61); SODIUM 131 mmol/L (136-145); TOT PROT 6.2 g/dl (6.4-8.2)
[2018-02-25] MEDS ORDERED: FUROSEMIDE 100 MG/10 ML INJECTABLE VIAL IVPB ONE (08:15)
[2018-02-25] MEDS: ALBUTEROL SO4 2.5/IPRATROPIUM 0.5 INH SOL 3 ML VIAL.NEB. NEB SCH (08:21)
[2018-02-25] MEDS ORDERED: PT OWN MED DRAWER 7, Y5N ONE (09:05)
--- NOTE | 2018-02-25 09:11 | PN ---
Progress Note (short form) - Note Progress Note: Renal follow up for SHANEKA Pt seen and examined in the ICU remains on vent, FiO2 60% on Dopamine and Levophed making urine no overnight events pt is no DNR Vital Signs Temperature 98.8 F 02/25/18 06:00 Pulse Rate 59 L 02/25/18 08:00 Respiratory Rate 16 02/25/18 08:29 Blood Pressure 114/75 02/25/18 08:00 O2 Sat by Pulse Oximetry (%) 95 02/24/18 20:40 Intake & Output 02/22/18 02/23/18 02/24/18 02/25/18 23:59 23:59 23:59 23:59 Intake Total 2729 6007 4274 564 Output Total 720 160 750 500 Balance 2008 6673 7814 64 Weight 117.118 kg 120.429 kg 124.483 kg 126.9 kg intubated and sedated neck supple RRR Edil BC + abd ascities + LE edema gonzalez in place CBC, BMP 02/25/18 05:30 02/25/18 05:30 Current Medications Albuterol/Ipratropium (Duoneb -) 1 amp NEB RQID J CARLOS Last Admin: 02/25/18 08:21 Dose: 1 amp Atorvastatin Calcium (Lipitor -) 80 mg NGT HS J CARLOS Last Admin: 02/24/18 21:55 Dose: Not Given Chlorhexidine Gluconate (Hibiclens For Decolonization -) 1 applic TP HS J CARLOS Last Admin: 02/24/18 22:15 Dose: 1 applic Chlorhexidine Gluconate (Peridex -) 15 ml MM BID J CARLOS Last Admin: 02/24/18 22:17 Dose: 15 ml Collagenase (Santyl -) 1 applic TP DAILY J CARLOS; Protocol Last Admin: 02/24/18 10:00 Dose: 1 applic Fludrocortisone Acetate (Florinef -) 0.05 mg NGT DAILY J CARLOS Hydrocortisone Sodium Succinate (Solu-Cortef -) 50 mg IVPB Q6H J CARLOS Last Admin: 02/25/18 06:02 Dose: 50 mg Dopamine HCl/Dextrose (Dopamine 400 Mg/D5w -) 400,000 mcg in 250 mls @ 21.96 mls/hr IVPB TITR J CARLOS; Protocol Last Admin: 02/25/18 05:59 Dose: 5 mcg/kg/min, 21.96 mls/hr Midazolam HCl 100 mg/ Sodium (Chloride) 100 mls @ 5 mls/hr IVPB TITR [facility]; Protocol Last Admin: 02/25/18 06:00 Dose: Not Given Norepinephrine Bitartrate 8, (000 mcg/ Sodium Chloride) 1,000 mls @ 150 mls/hr IV TITR [facility]; Protocol Last Titration: 02/25/18 06:09 Dose: 5 mcg/min, 37.5 mls/hr Cefepime HCl (Maxipime 1 Gm Premix Ivpb) 1 gm in 50 mls @ 100 mls/hr IVPB Q24H J CARLOS; Protocol Last Admin: 02/24/18 10:37 Dose: 100 mls/hr Sodium Chloride (Normal Saline -) 250 mls @ 3,000 mls/hr IV PRN PRN PRN Reason: Hypotension during Dialysis Stop: 02/24/18 23:13 Insulin Aspart (Novolog Vial Sliding Scale -) 1 vial SQ ACHS [facility]; Protocol Last Admin: 02/25/18 06:07 Dose: 6 units Insulin Detemir (Levemir Vial) 10 units SQ BID@0700,2200 [facility] Last Admin: 02/25/18 06:09 Dose: 10 units Lactulose (Cephulac (Oral Use)) 20 gm NGT TID [facility] Last Admin: 02/25/18 06:00 Dose: Not Given Lidocaine (Lidoderm Patch -) 1 patch TP DAILY [facility] Last Admin: 02/24/18 10:44 Dose: 1 patch Miscellaneous (Lidoderm Patch Removal) 1 each MC DAILY@2200 [facility] Last Admin: 02/24/18 22:15 Dose: 1 each Multivitamins/Minerals/Vitamin C (Tab-A-Vit -) 1 tab PO DAILY [facility] Last Admin: 02/24/18 13:10 Dose: Not Given Mupirocin (Bactroban Ointment (For Decolonization) -) 1 applic NS BID [facility] Stop: 02/26/18 21:59 Last Admin: 02/24/18 22:15 Dose: 1 applic Nadolol (Corgard -) 20 mg NGT DAILY [facility] Pantoprazole Sodium (Protonix Iv) 40 mg IVPUSH DAILY [facility] Last Admin: 02/24/18 10:40 Dose: 40 mg Polyethylene Glycol (Miralax (For Daily Use) -) 17 gm NGT DAILY [facility] Ranolazine (Ranexa -) 1,000 mg PO BID [facility] Last Admin: 02/24/18 21:55 Dose: Not Given Rifaximin (Xifaxan -) 550 mg NGT BID [facility] Last Admin: 02/24/18 21:55 Dose: Not Given Senna (Senna -) 1 tab PO HS [facility] Last Admin: 02/24/18 21:55 Dose: Not Given A/P 58 year old gentleman with hx of HCC s/p radiation Tx, Non-alcoholic cirrhosis, CAD, DM, hx of SHANEKA who presented with LE wound found to have worsening asciteis now with NSTEMI and SHANEKA. #SHANEKA secondary to Hepato-renal syndrome + ATN following cardiac arrest #Cirrhosis with massive ascities #NSTEMI #Hypotension in setting of cirrhosis and intravascular volume depletion #Anemia #Thrombocytopenia #PEA arrest tolerated 2 sessions of dialysis no indication for [employer] today continue IV Lasix diuresis with 160mg IV given this am goal is pt keep pt net negative given edema and pulmonary congestion may need to redose Lasix this evening continue Vent support and ICU care Abx as per ID transfuse as per ICU protocol GI follow up D/c Nadalol as pt is currently on 2 pressers has has bradycardia prognosis is guarded Anton Faith DO
[2018-02-25] MEDS: CEFEPIME HCL/D5W 1 GM/50 ML BAG IVPB SCH (09:15)
[2018-02-25] MEDS: PANTOPRAZOLE SODIUM 40 MG VIAL IVPUSH SCH (09:16)
[2018-02-25] MEDS: CHLORHEXIDINE GLUCONATE 0.12% 15ML CUP MM SCH (09:18)
[2018-02-25] MEDS: LIDOCAINE 5% TOPICAL PATCH TP SCH (09:20)
[2018-02-25] MEDS: RIFAXIMIN 550 MG TABLET (UD) NGT SCH (09:21)
--- NOTE | 2018-02-25 10:31 | PN ---
Progress Note, Physician History of Present Illness: Events noted now dnr and dni - Current Medication List Current Medications: Active Medications Sodium Chloride (Normal Saline -) 250 mls @ 3,000 mls/hr IV PRN PRN PRN Reason: Hypotension during Dialysis Stop: 02/24/18 23:13 - Objective Vital Signs: Vital Signs Temperature 98.8 F 02/25/18 06:00 Pulse Rate 59 L 02/25/18 08:00 Respiratory Rate 16 02/25/18 08:29 Blood Pressure 114/75 02/25/18 08:00 O2 Sat by Pulse Oximetry (%) 95 02/24/18 20:40 Cardiovascular: Yes: S1, S2 Respiratory: Yes: Mechanically Ventilated Labs: CBC, BMP 02/25/18 05:30 02/25/18 05:30 INR, PTT INR 1.51 (0.83-1.09) H 02/22/18 05:30 Problem List - Problems (1) Non-ST elevated myocardial infarction Code(s): I21.4 - NON-ST ELEVATION (NSTEMI) MYOCARDIAL INFARCTION (2) Ascites Code(s): R18.8 - OTHER ASCITES Qualifiers: Ascites type: malignant Qualified Code(s): R18.0 - Malignant ascites (3) Hepatoma Code(s): C22.0 - LIVER CELL CARCINOMA (4) Hypotension Code(s): I95.9 - HYPOTENSION, UNSPECIFIED (5) Diabetes mellitus, insulin dependent (IDDM), uncontrolled Code(s): E10.65 - TYPE 1 DIABETES MELLITUS WITH HYPERGLYCEMIA (6) Elevated troponin I level Code(s): R74.8 - ABNORMAL LEVELS OF OTHER SERUM ENZYMES (7) Hyponatremia Code(s): E87.1 - HYPO-OSMOLALITY AND HYPONATREMIA Assessment/Plan DNR/DNI. wants withdrawal of care and patient to be put on comfort measures. she currently wants morphine drip. Withdraw all other medications, labs, bgms, pressers.
[2018-02-25] MEDS ORDERED: MORPHINE 100 MG in SODIUM CHLORIDE 98 ML IVPB SCH (10:45)
--- NOTE | 2018-02-25 10:56 | PN ---
Teaching Attending Note Name of Resident: Noelle Serrano ATTENDING PHYSICIAN STATEMENT I saw and evaluated the patient. I reviewed the resident's note and discussed the case with the resident. I agree with the resident's findings and plan as documented. SUBJECTIVE: Patient seen and examined in the ICU. Remains intubated and sedated. AC Mode of vent. Remains on pressors: NE @ 5 mcq and Dopamine @ 5mcq for hemodynamic support. CXR: some improvement in the RUL atelectasis OBJECTIVE: Intake & Output 02/22/18 02/23/18 02/24/18 02/25/18 23:59 23:59 23:59 23:59 Intake Total 2729 6007 4274 564 Output Total 720 160 750 500 Balance 2008 5847 3524 64 Weight 258 lb 3.2 oz 265 lb 8 oz 274 lb 7 oz 279 lb 12.266 oz Last Vital Signs Temp Pulse Resp BP Pulse Ox 99.6 F 60 18 114/74 95 02/25/18 10:00 02/25/18 10:00 02/25/18 10:00 02/25/18 10:00 02/24/18 20:40 Active Medications Sodium Chloride (Normal Saline -) 250 mls @ 3,000 mls/hr IV PRN PRN PRN Reason: Hypotension during Dialysis Stop: 02/24/18 23:13 Morphine Sulfate 100 mg/ (Sodium Chloride) 100 mls @ 1 mls/hr IVPB TITR J CARLOS; Protocol Gen: Intubated and sedated Heart: Bradycardia Lung: Bilateral coarse rhonchi, no wheeze Abd: softly distended, +ascites Ext: + edema Laboratory Results - last 24 hr 02/20/18 02/23/18 02/24/18 09:15 19:20 12:20 WBC RBC Hgb Hct MCV MCH MCHC RDW Plt Count MPV Absolute Neuts (auto) Neutrophils % Lymphocytes % Monocytes % Eosinophils % Basophils % Nucleated RBC % Sodium Potassium Chloride Carbon Dioxide Anion Gap BUN Creatinine Creat Clearance w eGFR POC Glucometer [phone] Random Glucose Calcium Phosphorus Magnesium Total Bilirubin AST ALT Alkaline Phosphatase Total Protein Albumin Random Vancomycin Hep C Ab Diagnostic 0.3 Liver Fibrosis Interp Crossmatch See Detail 02/24/18 02/24/18 02/25/18 17:10 22:04 05:30 WBC RBC Hgb Hct MCV MCH MCHC RDW Plt Count MPV Absolute Neuts (auto) Neutrophils % Lymphocytes % Monocytes % Eosinophils % Basophils % Nucleated RBC % Sodium Potassium Chloride Carbon Dioxide Anion Gap BUN Creatinine Creat Clearance w eGFR POC Glucometer 269.98096 235.59033 Random Glucose Calcium Phosphorus Magnesium Total Bilirubin AST ALT Alkaline Phosphatase Total Protein Albumin Random Vancomycin 19.0 Hep C Ab Diagnostic Liver Fibrosis Interp Crossmatch 02/25/18 02/25/18 02/25/18 05:30 05:30 05:31 WBC 19.3 H RBC 2.64 L Hgb 7.9 L Hct 23.6 L MCV 89.6 MCH 30.1 MCHC 33.6 RDW 21.2 H Plt Count 108 L MPV 7.4 L Absolute Neuts (auto) 18.2 H Neutrophils % 94.3 H Lymphocytes % 1.3 L D Monocytes % 4.2 Eosinophils % 0.0 Basophils % 0.2 Nucleated RBC % 0 Sodium 131 L Potassium 3.8 Chloride 100 Carbon Dioxide 22 Anion Gap 9 BUN 48 H Creatinine 2.4 H Creat Clearance w eGFR 27.75 POC Glucometer [phone] Random Glucose 205 H Calcium 7.3 L Phosphorus 4.5 Magnesium 2.0 Total Bilirubin 4.7 H AST 844 H ALT 398 H Alkaline Phosphatase 185 H Total Protein 6.2 L Albumin 2.5 L Random Vancomycin Hep C Ab Diagnostic Liver Fibrosis Interp Crossmatch ASSESSMENT AND PLAN: Gram Positive Bacteremia Sepsis Acute Kidney Injury - r/o Hepato-Renal Syndrome Thrombocytopenia Coagulopathy Liver Cirrhosis Ascites s/p Large Volume Paracentesis r/o GI Bleed h/o Esophageal Varices HCC s/p TACE Acute NSTEMI CAD HTN - HD per Renal - ABX coverage - Strict monitor urine output, creatinine - For refractory shock: hydrocortisone and fludrocortisone - Monitor CBC, coags - Normal transfusion thresholds - Protonix, octreotide per GI recommendations: discuss if still needed - Family considering a compassionate extubation - ICU monitoring Dr Hdz Critical care time spent in reviewing chart, evaluating patient and formulating plan 38 min
[2018-02-25 11:02] LABS: ANISOCYTOSIS 1+; MACROCYTOSIS 0; PLATELET ESTIMATE DECREASED
--- NOTE | 2018-02-25 11:04 | PN ---
Physical Exam: SUBJECTIVE: Patient seen and examined, still intubated and sedated on 2 pressers. Decision was made by /proxy that comfort measurse will be put in to place and withdraw of care once family arrives. OBJECTIVE: Vital Signs Period Temp Pulse Resp BP Sys/Ferrell Pulse Ox Last 24 Hr 98.4 F-99.6 F 55-68 14-22 91-126/54-81 95-95 GENERAL: The patient is intubated and sedated HEAD: Normal with no signs of trauma. LUNGS: b/l crackles throughout lung owen. HEART: Regular rate and rhythm, S1, S2 without murmur, rub or gallop. ABDOMEN: distended with fluid EXTREMITIES: b/l edema Laboratory Results - last 24 hr 02/20/18 02/23/18 02/24/18 09:15 19:20 12:20 WBC RBC Hgb Hct MCV MCH MCHC RDW Plt Count MPV Absolute Neuts (auto) Neutrophils % Lymphocytes % Monocytes % Eosinophils % Basophils % Nucleated RBC % Sodium Potassium Chloride Carbon Dioxide Anion Gap BUN Creatinine Creat Clearance w eGFR POC Glucometer [phone] Random Glucose Calcium Phosphorus Magnesium Total Bilirubin AST ALT Alkaline Phosphatase Total Protein Albumin Random Vancomycin Hep C Ab Diagnostic 0.3 Liver Fibrosis Interp Crossmatch See Detail 02/24/18 02/24/18 02/25/18 17:10 22:04 05:30 WBC RBC Hgb Hct MCV MCH MCHC RDW Plt Count MPV Absolute Neuts (auto) Neutrophils % Lymphocytes % Monocytes % Eosinophils % Basophils % Nucleated RBC % Sodium Potassium Chloride Carbon Dioxide Anion Gap BUN Creatinine Creat Clearance w eGFR POC Glucometer 269.11375 235.44419 Random Glucose Calcium Phosphorus Magnesium Total Bilirubin AST ALT Alkaline Phosphatase Total Protein Albumin Random Vancomycin 19.0 Hep C Ab Diagnostic Liver Fibrosis Interp Crossmatch 02/25/18 02/25/18 02/25/18 05:30 05:30 05:31 WBC 19.3 H RBC 2.64 L Hgb 7.9 L Hct 23.6 L MCV 89.6 MCH 30.1 MCHC 33.6 RDW 21.2 H Plt Count 108 L MPV 7.4 L Absolute Neuts (auto) 18.2 H Neutrophils % 94.3 H Lymphocytes % 1.3 L D Monocytes % 4.2 Eosinophils % 0.0 Basophils % 0.2 Nucleated RBC % 0 Sodium 131 L Potassium 3.8 Chloride 100 Carbon Dioxide 22 Anion Gap 9 BUN 48 H Creatinine 2.4 H Creat Clearance w eGFR 27.75 POC Glucometer [phone] Random Glucose 205 H Calcium 7.3 L Phosphorus 4.5 Magnesium 2.0 Total Bilirubin 4.7 H AST 844 H ALT 398 H Alkaline Phosphatase 185 H Total Protein 6.2 L Albumin 2.5 L Random Vancomycin Hep C Ab Diagnostic Liver Fibrosis Interp Crossmatch Active Medications Generic Name Dose Route Start Last Admin Trade Name Freq PRN Reason Stop Dose Admin Sodium Chloride 250 mls @ 3,000 mls/hr 02/23/18 23:13 Normal Saline - IV 02/24/18 23:13 PRN PRN Hypotension during Dialysis Morphine Sulfate 100 mg/ 100 mls @ 1 mls/hr 02/25/18 10:45 Sodium Chloride IVPB TITR J CARLOS Protocol 1 MG/HR ASSESSMENT/PLAN: This is a 58 year old male with a history of HERNANDEZ, HCC, ascities, coagulopathy, sepsis with gram positive bacteremia, presents in shock after large volume paracentesis. Plans were made overnight to make patient DNR/DNI. I spoke with this morning who is the decision maker, she wants withdrawal of care and patient to be put on comfort measures. She is waiting for family to come to extubate, she currently wants morphine drip. Withdraw all other medications, labs, bgms, pressers. Visit type - Emergency Visit Emergency Visit: Yes ED Registration Date: 02/17/18 Care time: The patient presented to the Emergency Department on the above date and was hospitalized for further evaluation of their emergent condition. - New Patient This patient is new to me today: Yes Date on this admission: 02/25/18 - Critical Care Critical Care patient: Yes Total Critical Care Time (in minutes): 35 Critical Care Statement: The care of this patient involved high complexity decision making to prevent further life threatening deterioration of the patient 's condition and/or to evaluate & treat vital organ system(s) failure or risk of failure.
--- NOTE | 2018-02-25 14:47 | PN ---
Progress Note, Physician History of Present Illness: No events overnight Made comfort acre by family and ICU staff Started on MSO4 gtt for comfort titration - Current Medication List Current Medications: Active Medications Morphine Sulfate 100 mg/ (Sodium Chloride) 100 mls @ 1 mls/hr IVPB TITR J CARLOS; Protocol Last Admin: 02/25/18 11:22 Dose: 2 mg/hr, 2 mls/hr - Objective Vital Signs: Vital Signs Temperature 99.6 F 02/25/18 10:00 Pulse Rate 44 L 02/25/18 12:00 Respiratory Rate 14 02/25/18 12:10 Blood Pressure 61/41 L 02/25/18 12:00 O2 Sat by Pulse Oximetry (%) 95 02/24/18 20:40 Constitutional: Yes: No Distress (Intubated) Eyes: Yes: WNL Neck: Yes: WNL Cardiovascular: Yes: Regular Rate and Rhythm Respiratory: Yes: CTA Bilaterally Labs: CBC, BMP 02/25/18 05:30 02/25/18 05:30 INR, PTT INR 1.51 (0.83-1.09) H 02/22/18 05:30 Assessment/Plan 58M h/o CAD s/p stents 2007,HERNANDEZ, HCC with ascites, DM, foot ulcer p/w foot ulcer debridement, ascites, now with NSTEMI NSTEMI - mild MARGARITO in I, aVL on EKG initially then resolved - I discussed case with Dr. Jewell on Tuesday02/21/2018 - given significant comorbid conditions including severe anemia with varicies, SHANEKA, cirrhosis in patient asymptomatic, nl EF we defered cardiac catheterization and pursued medical management - deferring clopidogrel, asa, heparin gtt given stool occult blood pos, anemia requiring transfusion during this admission, also hx varices and gettig IV protonix, octreotide - - normal EF on echo 02/20 No on comfort care measures Continue current CV regimen as needed Discussed his cardiac consition and management decisions with the family at the bedside
[2018-02-25 19:01] VITALS: BP 65/41; PULSE 62; TEMP 98.4
--- NOTE | 2018-02-26 04:16 | PN ---
Progress Note (short form) - Note Progress Note: Nurse Emili Snow paged me to examine pt at 4:01 AM. Pt unresponsive, even to painful stimuli. Pupils fixed & non-reactive. Pt has no spontaneous breathing , no heart sounds, and no breath sounds. No carotid or femoral pulses present. Time of pronounced at 4:04 am on 02/26/18. Family notified by myself. Grievance services offered to family. Body to be released to home of family's choice.
[2018-02-26 06:37] LABS: HBSAG SCREEN Negative (Negative); HEP A AB, IGM Negative (Negative); HEP B CORE AB, TOT Negative (Negative)
== END 2018-02-26 06:48 | disposition expired ==
LOC: JER 14:04 → JERBED 17:49 → J8W 20:10 → JICU 02-21 18:32
PROVIDERS: ADMIT Internal Medicine; ATTEND Family Medicine
PROC: 30233N1 Transfusion of Nonautologous Red Blood Cells into Peripheral Vein, Percutaneous Approach (ICD-10-PCS; 2018-02-17)
PROC: 30233K1 Transfusion of Nonautologous Frozen Plasma into Peripheral Vein, Percutaneous Approach (ICD-10-PCS; 2018-02-21)
PROC: 5A12012 Performance of Cardiac Output, Single, Manual (ICD-10-PCS; principal; 2018-02-23)
PROC: 06HM33Z Insertion of Infusion Device into Right Femoral Vein, Percutaneous Approach (ICD-10-PCS; 2018-02-23)
PROC: 06HN33Z Insertion of Infusion Device into Left Femoral Vein, Percutaneous Approach (ICD-10-PCS; 2018-02-23)
PROC: 5A1D70Z Performance of Urinary Filtration, Intermittent, Less than 6 Hours Per Day (ICD-10-PCS; 2018-02-23)
PROC: 05HM33Z Insertion of Infusion Device into Right Internal Jugular Vein, Percutaneous Approach (ICD-10-PCS; 2018-02-23)
PROC: 5A1945Z Respiratory Ventilation, 24-96 Consecutive Hours (ICD-10-PCS; 2018-02-23)
PROC: 0CHY7BZ Insertion of Airway into Mouth and Throat, Via Natural or Artificial Opening (ICD-10-PCS; 2018-02-23)
PROC: 0W9G3ZX Drainage of Peritoneal Cavity, Percutaneous Approach, Diagnostic (ICD-10-PCS; 2018-02-23)
DX: E11.51 Type 2 diabetes mellitus with diabetic peripheral angiopathy without gangrene (principal); I21.4 Non-ST elevation (NSTEMI) myocardial infarction; K76.7 Hepatorenal syndrome; A41.02 Sepsis due to Methicillin resistant Staphylococcus aureus; R65.21 Severe sepsis with septic shock; L97.508 Non-pressure chronic ulcer of other part of unspecified foot with other specified severity; N17.9 Acute kidney failure, unspecified; R18.8 Other ascites; I85.00 Esophageal varices without bleeding; R18.0 Malignant ascites; C22.0 Liver cell carcinoma; M86.60 Other chronic osteomyelitis, unspecified site; K76.6 Portal hypertension; E87.2 Acidosis; D68.9 Coagulation defect, unspecified; E87.1 Hypo-osmolality and hyponatremia; J98.11 Atelectasis; E11.621 Type 2 diabetes mellitus with foot ulcer; D64.9 Anemia, unspecified; I25.10 Atherosclerotic heart disease of native coronary artery without angina pectoris; E78.5 Hyperlipidemia, unspecified; K75.81 Nonalcoholic steatohepatitis (NASH); K72.90 Hepatic failure, unspecified without coma; R74.8 Abnormal levels of other serum enzymes; R14.0 Abdominal distension (gaseous); D72.829 Elevated white blood cell count, unspecified; E11.42 Type 2 diabetes mellitus with diabetic polyneuropathy; I10 Essential (primary) hypertension; D69.6 Thrombocytopenia, unspecified; D63.8 Anemia in other chronic diseases classified elsewhere; K64.9 Unspecified hemorrhoids; D73.1 Hypersplenism; I95.9 Hypotension, unspecified; K29.70 Gastritis, unspecified, without bleeding; I46.9 Cardiac arrest, cause unspecified; R00.1 Bradycardia, unspecified; E11.65 Type 2 diabetes mellitus with hyperglycemia; E87.5 Hyperkalemia; I12.9 Hypertensive chronic kidney disease with stage 1 through stage 4 chronic kidney disease, or unspecified chronic kidney disease; E11.22 Type 2 diabetes mellitus with diabetic chronic kidney disease; N18.9 Chronic kidney disease, unspecified; Z66 Do not resuscitate; Z89.421 Acquired absence of other right toe(s); Z89.422 Acquired absence of other left toe(s); Z99.2 Dependence on renal dialysis
CPT/HCPCS: 31500; 36415; 36430; 36600; 71045-TC-FY; 71046-TC-FY; 73718-LT; 74018-TC-FY; 76705-TC; 76775-TC; 76942-TC; 80048; 80053; 81003; 81015; 82140; 82272; 82550; 82553; 82607; 82728; 82747; 82803; 82962; 83010; 83540; 83550; 83605; 83615; 83735; 84100; 84439; 84443; 84484; 85014; 85025; 85027; 85044; 85610; 85730; 86140; 86704; 86706; 86708; 86803; 86850; 86900; 86901; 86922; 87040; 87070; 87086; 87186; 87205; 87340; 90688; 93005; 93010; 93306-TC; 94002; 94640; 99282-25; G0008; G0463-25; G0480; J7030; P9017; P9034; P9038; P9047; P9058